=== PATIENT | male | born 1935 | race Caucasian/White ===

== ENCOUNTER → 2017-10-25 07:37 | Outpatient (CLI) | payer MEDICARE, SELFPAY ==
[2017-10-25 08:23] LABS: Hematocrit 43.9 % (40-54); Mean Corp Hgb Conc 31.9 g/gl (32-36); Mean Corpuscular Hgb 30.4 pg (27.0-32.0); Mean Corpuscular Volume 95.4 fL (80-94); Mean Platelet Vol. 10.4 fl (6.2-12.0); Platelet Count 238 K/mm3 (150-450); RBC Distribution Width CV 13.5 % (11.6-14.6); RBC Distribution Width SD 46.6 fl (35.1-43.9); White Blood Count 8.4 K/mm3 (4.4-11.0)
[2017-10-25 08:24] LABS: Scan Indicated on CBC? Y/N NO
[2017-10-25 08:37] LABS: Hemoglobin A1c 5.8 % (4.2-6.3)
[2017-10-25 08:42] LABS: Microalbumin,Random Urine 57.5 mg/L (NO RANGE EST.); Microalbumin:Creatinine Ratio 91.4 mg/g CRE (<30 mg/g CRE)
[2017-10-25 08:47] LABS: ALB/GLOB Ratio 0.9 RATIO (0.9-2.4); AST(SGOT) 18 U/L (15-37); Alanine Aminotransfer ALT/SGPT 24 U/L (16-61); Albumin, Serum 3.6 g/dL (3.2-5.0); Alkaline Phosphatase 74 U/L (45-117); Anion Gap 6 (5-15); BUN 26 mg/dL (7-18); Bilirubin, Direct 0.15 mg/dL (0.00-0.30); Calcium,Total 8.6 mg/dL (8.5-10.1); Chloride 104 mmol/L (98-107); Cholesterol 132 mg/dL (200); Creatinine, Serum 1.73 mg/dL (0.70-1.30); EST Glomerular Filtration Rate 41 mL/min (>60); Est Glom Filt Rate - Afr Amer 49 mL/min (>60); Globulin 3.8 g/dL (2.2-4.2); Glucose 107 mg/dL (74-106); High Density Lipoprotein 46 mg/dL; Potassium 4.5 mmol/L (3.5-5.1); Protein, Total 7.4 g/dL (6.4-8.2); Sodium Level 140 mmol/L (136-145); Triglycerides 89 mg/dL; Very Low Density Lipoprotein 18 mg/dL (5-40)
[2017-10-25 08:51] LABS: Vitamin D,25 Hydroxy 45.9 ng/mL (29.95-100.01)
[2017-10-25 08:51] LABS: PTHIN 75.3 pg/mL (18.4-80.1)
== END ==
PROVIDERS: Internal Medicine Cardiovascular Disease; Family Provider Family Medicine; PCP Family Medicine; Visit Provider Internal Medicine Nephrology
DX: I12.9 Hypertensive chronic kidney disease with stage 1 through stage 4 chronic kidney disease, or unspecified chronic kidney disease (principal); N18.3 Chronic kidney disease, stage 3 (moderate); E78.5 Hyperlipidemia, unspecified; Z79.899 Other long term (current) drug therapy
CPT/HCPCS: 36415; 80053; 80061; 82043; 82248; 82306; 82570; 83036; 83970; 85027

== ENCOUNTER → 2017-11-01 12:36 | Outpatient (CLI) | payer MEDICARE, SELFPAY ==
[2017-11-01 14:44] LABS: ALB/GLOB Ratio 0.9 RATIO (0.9-2.4); AST(SGOT) 18 U/L (15-37); Alanine Aminotransfer ALT/SGPT 24 U/L (16-61); Albumin, Serum 3.7 g/dL (3.2-5.0); Alkaline Phosphatase 80 U/L (45-117); Anion Gap 6 (5-15); BUN 37 mg/dL (7-18); Calcium,Total 8.8 mg/dL (8.5-10.1); Chloride 108 mmol/L (98-107); Cholesterol 139 mg/dL (200); Creatinine, Serum 1.85 mg/dL (0.70-1.30); EST Glomerular Filtration Rate 37 mL/min (>60); Est Glom Filt Rate - Afr Amer 45 mL/min (>60); Globulin 3.9 g/dL (2.2-4.2); Glucose 83 mg/dL (74-106); High Density Lipoprotein 53 mg/dL; Potassium 4.7 mmol/L (3.5-5.1); Protein, Total 7.6 g/dL (6.4-8.2); Sodium Level 141 mmol/L (136-145); Triglycerides 103 mg/dL; Very Low Density Lipoprotein 21 mg/dL (5-40)
[2017-11-01 14:51] LABS: Hemoglobin A1c 5.5 % (4.2-6.3)
== END ==
PROVIDERS: Family Provider Family Medicine; PCP Family Medicine; Visit Provider Family Medicine
DX: I12.9 Hypertensive chronic kidney disease with stage 1 through stage 4 chronic kidney disease, or unspecified chronic kidney disease (principal); N18.3 Chronic kidney disease, stage 3 (moderate); E78.5 Hyperlipidemia, unspecified
CPT/HCPCS: 80053; 80061; 83036

== ENCOUNTER → 2018-04-20 08:04 | Outpatient (CLI) | payer MEDICARE, SELFPAY ==
[2018-04-20 09:04] LABS: AST(SGOT) 18 U/L (15-37); Alanine Aminotransfer ALT/SGPT 21 U/L (16-61); Albumin, Serum 3.8 g/dL (3.2-5.0); Alkaline Phosphatase 70 U/L (45-117); Anion Gap 7 (5-15); BUN 32 mg/dL (7-18); BUN/Creat Ratio 16.2 RATIO (10-20); Calcium,Total 9.1 mg/dL (8.5-10.1); Chloride 100 mmol/L (98-107); Cholesterol 149 mg/dL (200); Creatinine, Serum 1.97 mg/dL (0.70-1.30); EST Glomerular Filtration Rate 35 mL/min (>60); Est Glom Filt Rate - Afr Amer 42 mL/min (>60); Globulin 3.9 g/dL (2.2-4.2); Glucose 112 mg/dL (74-106); High Density Lipoprotein 46 mg/dL; Potassium 3.8 mmol/L (3.5-5.1); Protein, Total 7.7 g/dL (6.4-8.2); Sodium Level 139 mmol/L (136-145); Triglycerides 141 mg/dL; Very Low Density Lipoprotein 28 mg/dL (5-40)
[2018-04-20 09:07] LABS: Hemoglobin A1c 5.8 % (4.2-6.3)
== END ==
PROVIDERS: Family Provider Family Medicine; PCP Family Medicine; Referring Provider Family Medicine; Visit Provider Family Medicine
DX: E78.5 Hyperlipidemia, unspecified (principal); I12.9 Hypertensive chronic kidney disease with stage 1 through stage 4 chronic kidney disease, or unspecified chronic kidney disease; N18.3 Chronic kidney disease, stage 3 (moderate); Z79.899 Other long term (current) drug therapy
CPT/HCPCS: 36415; 80053; 80061; 83036

== ENCOUNTER → 2018-11-09 | Outpatient (CLI) | payer MEDICARE, SELFPAY ==
[2017-11-09 10:06] VITALS: BMI 21.9
[2018-11-09 08:51] LABS: Hematocrit 42.9 % (40-54); Hemoglobin 14.2 g/dl (13.0-16.5); Mean Corp Hgb Conc 33.1 g/gl (32-36); Mean Corpuscular Hgb 30.8 pg (27.0-32.0); Mean Corpuscular Volume 93.1 fL (80-94); Mean Platelet Vol. 10.2 fl (6.2-12.0); Platelet Count 244 K/mm3 (150-450); RBC Distribution Width CV 12.9 % (11.6-14.6); RBC Distribution Width SD 43.3 fl (35.1-43.9); Red Blood Count 4.61 M/mm3 (4.6-6.2); White Blood Count 7.4 K/mm3 (4.4-11.0)
[2018-11-09 08:53] LABS: Scan Indicated on CBC? Y/N NO
[2018-11-09 09:00] LABS: Protein, Urine (Random) 17.2 mg/dL (<11.9); Protein:Creat Ratio 282 mg/g CRE (0-200)
[2018-11-09 09:19] LABS: ALB/GLOB Ratio 1.1 RATIO (0.9-2.4); AST(SGOT) 20 U/L (15-37); Alanine Aminotransfer ALT/SGPT 21 U/L (16-61); Albumin, Serum 3.9 g/dL (3.2-5.0); Alkaline Phosphatase 70 U/L (45-117); Anion Gap 5 (5-15); BUN 35 mg/dL (7-18); BUN/Creat Ratio 18.5 RATIO (10-20); Bilirubin, Direct 0.15 mg/dL (0.00-0.30); Chloride 102 mmol/L (98-107); Cholesterol 151 mg/dL (200); Creatinine, Serum 1.89 mg/dL (0.70-1.30); EST Glomerular Filtration Rate 36 mL/min (>60); Est Glom Filt Rate - Afr Amer 44 mL/min (>60); Globulin 3.7 g/dL (2.2-4.2); Glucose 110 mg/dL (74-106); High Density Lipoprotein 50 mg/dL; Potassium 3.8 mmol/L (3.5-5.1); Protein, Total 7.6 g/dL (6.4-8.2); Sodium Level 138 mmol/L (136-145); Triglycerides 94 mg/dL; Very Low Density Lipoprotein 19 mg/dL (5-40)
[2018-11-09 09:29] LABS: Vitamin D,25 Hydroxy 37.6 ng/mL (29.95-100.01)
[2018-11-09 16:49] LABS: Phosphorus 3.8 mg/dL (2.5-4.9)
== END | disposition home or self-care (01) ==
PROVIDERS: Family Provider Family Medicine; PCP Family Medicine; Referring Provider Nurse Practitioner Family; Visit Provider Nurse Practitioner Family
DX: I12.9 Hypertensive chronic kidney disease with stage 1 through stage 4 chronic kidney disease, or unspecified chronic kidney disease (principal); N18.3 Chronic kidney disease, stage 3 (moderate); Z79.899 Other long term (current) drug therapy; I25.10 Atherosclerotic heart disease of native coronary artery without angina pectoris; E55.9 Vitamin D deficiency, unspecified; N25.81 Secondary hyperparathyroidism of renal origin; E78.5 Hyperlipidemia, unspecified; D63.1 Anemia in chronic kidney disease
CPT/HCPCS: 36415; 80053; 80061; 82248; 82306; 82570; 83970; 84100; 84156; 85027

== ENCOUNTER → 2018-12-06 | Outpatient (CLI) | payer MEDICARE, SELFPAY ==
[2018-11-24 09:07] VITALS: BMI 22.7
--- NOTE | 2018-12-06 07:32 | CDU_ITS ---
Reason For Study: TIA Rt. Velocities/BP Lt. Velocities/BP Prox CCA 68.4/9.1 cm/sec. Prox CCA 64.2/11.4 cm/sec. Mid CCA 92.6/13.5 cm/sec. Mid CCA 60.5/13.9 cm/sec. Dist CCA 71.8/11.3 cm/sec. Dist CCA 61.7/11.4 cm/sec. Prox ICA 60.5/11.4 cm/sec. Prox ICA 64.1/10.2 cm/sec. Mid ICA 91.3/12.6 cm/sec. Mid ICA 67.4/8 cm/sec. Dist ICA 118.3/17.6 cm/sec. Dist ICA 71.7/11.3 cm/sec. Rt. ICA/CCA = 1.6. Lt. ICA/CCA = 1.2. Prox ECA 424 cm/sec. Prox ECA 191.6 cm/sec. Rt. Vert. 66.7 cm/sec. Lt. Vert. 91.5/8 cm/sec. Right Extracranial There is heterogeneous, smooth atherosclerotic plaque noted in the right common carotid artery. There is heterogeneous, irregular atherosclerotic plaque noted in the right internal carotid artery. There is heterogeneous, irregular atherosclerotic plaque noted in the right external carotid artery. Antegrade flow is noted in the right vertebral artery. Left Extracranial There is heterogeneous, smooth atherosclerotic plaque noted in the left common carotid artery. There is heterogeneous, irregular atherosclerotic plaque noted in the left internal carotid artery. There is heterogeneous, irregular atherosclerotic plaque noted in the left external carotid artery. Antegrade flow is noted in the left vertebral artery. Procedure Carotid Duplex [id number]. Exam performed in department. 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 Mild irregular plague at the proximal left internal carotid with <50% stenosis. Irregular plague at the proximal left external carotid with <50% stenosis. Patent and antegrade vertebrals bilaterally History reported of left carotid endarterectomy x 2 No advancement of disease since 12/09/13. Ordering Physician: Keith Bagley Referring Physician: FERNANDA Barros M.D. Performed By: Meg Carrillo RVT
== END | disposition home or self-care (01) ==
LOC: CVS 07:31
PROVIDERS: Family Provider Family Medicine; PCP Family Medicine; Referring Provider Internal Medicine Cardiovascular Disease; Visit Provider Internal Medicine Cardiovascular Disease
DX: I65.22 Occlusion and stenosis of left carotid artery (principal)
CPT/HCPCS: 93880

== ENCOUNTER → 2019-04-11 07:38 | Outpatient (CLI) | payer MEDICARE, SELFPAY ==
[2018-11-24 09:07] VITALS: BMI 22.7
[2019-04-11 08:30] LABS: Hematocrit 44.8 % (40-54); Hemoglobin 14.6 g/dL (13.0-16.5); Mean Corp Hgb Conc 32.6 g/dL (32-36); Mean Corpuscular Hgb 30.5 pg (27.0-32.0); Mean Corpuscular Volume 93.7 fL (80-94); Mean Platelet Vol. 10.2 fl (6.2-12.0); Platelet Count 260 K/mm3 (150-450); RBC Distribution Width CV 12.8 % (11.6-14.6); RBC Distribution Width SD 44.4 fl (35.1-43.9); Red Blood Count 4.78 M/mm3 (4.6-6.2); White Blood Count 7.6 K/mm3 (4.4-11.0)
[2019-04-11 09:00] LABS: ALB/GLOB Ratio 0.9 RATIO (0.9-2.4); AST(SGOT) 17 U/L (15-37); Alanine Aminotransfer ALT/SGPT 18 U/L (16-61); Albumin, Serum 3.6 g/dL (3.2-5.0); Alkaline Phosphatase 72 U/L (45-117); Anion Gap 6 (5-15); BUN 33 mg/dL (7-18); BUN/Creat Ratio 17.6 RATIO (10-20); Calcium,Total 9.2 mg/dL (8.5-10.1); Chloride 102 mmol/L (98-107); Cholesterol 137 mg/dL (200); Creatinine, Serum 1.87 mg/dL (0.70-1.30); EST Glomerular Filtration Rate 37 mL/min (>60); Est Glom Filt Rate - Afr Amer 45 mL/min (>60); Globulin 4.1 g/dL (2.2-4.2); Glucose 115 mg/dL (74-106); High Density Lipoprotein 46 mg/dL; Potassium 4.3 mmol/L (3.5-5.1); Protein, Total 7.7 g/dL (6.4-8.2); Sodium Level 137 mmol/L (136-145); Triglycerides 117 mg/dL; Very Low Density Lipoprotein 23 mg/dL (5-40)
== END ==
LOC: LAB.FUTURE 07:40 → LAB 07:44
PROVIDERS: Family Provider Family Medicine; PCP Family Medicine; Referring Provider Family Medicine; Visit Provider Family Medicine
DX: I12.9 Hypertensive chronic kidney disease with stage 1 through stage 4 chronic kidney disease, or unspecified chronic kidney disease (principal); N18.3 Chronic kidney disease, stage 3 (moderate); E55.9 Vitamin D deficiency, unspecified; N25.81 Secondary hyperparathyroidism of renal origin; E78.5 Hyperlipidemia, unspecified; I25.10 Atherosclerotic heart disease of native coronary artery without angina pectoris
CPT/HCPCS: 36415; 80053; 80061; 82306; 83970; 85027

== ENCOUNTER → 2020-04-26 08:01 | Outpatient (CLI) | payer MEDICARE, SELFPAY ==
[2018-11-24 09:07] VITALS: BMI 22.7
[2020-04-26 08:59] LABS: Hemoglobin 14.3 g/dL (13.0-16.5); Mean Corp Hgb Conc 31.8 g/dL (32-36); Mean Corpuscular Volume 97.4 fL (80-94); Mean Platelet Vol. 10.2 fl (6.2-12.0); Platelet Count 273 K/mm3 (150-450); RBC Distribution Width CV 12.9 % (11.6-14.6); RBC Distribution Width SD 45.6 fl (35.1-43.9); Red Blood Count 4.62 M/mm3 (4.6-6.2); White Blood Count 7.3 K/mm3 (4.4-11.0)
[2020-04-26 09:21] LABS: PTHIN 58.4 pg/mL (18.4-80.1)
[2020-04-26 09:24] LABS: ALB/GLOB Ratio 0.9 RATIO (0.9-2.4); AST(SGOT) 16 U/L (15-37); Alanine Aminotransfer ALT/SGPT 26 U/L (16-61); Albumin, Serum 3.6 g/dL (3.2-5.0); Alkaline Phosphatase 85 U/L (45-117); Anion Gap 3 (5-15); BUN 33 mg/dL (7-18); BUN/Creat Ratio 19.8 RATIO (10-20); Bilirubin, Direct 0.16 mg/dL (0.00-0.30); Calcium,Total 9.1 mg/dL (8.5-10.1); Chloride 106 mmol/L (98-107); Cholesterol 142 mg/dL (200); Creatinine, Serum 1.67 mg/dL (0.70-1.30); EST Glomerular Filtration Rate 42 mL/min (>60); Est Glom Filt Rate - Afr Amer 51 mL/min (>60); Globulin 3.9 g/dL (2.2-4.2); Glucose 119 mg/dL (74-106); High Density Lipoprotein 52 mg/dL; Potassium 4.6 mmol/L (3.5-5.1); Protein, Total 7.5 g/dL (6.4-8.2); Sodium Level 140 mmol/L (136-145); Triglycerides 88 mg/dL; Very Low Density Lipoprotein 18 mg/dL (5-40)
[2020-04-26 09:25] LABS: Vitamin D,25 Hydroxy 54.8 ng/mL
== END ==
PROVIDERS: Nurse Practitioner Family; PCP Family Medicine; Referring Provider Family Medicine; Visit Provider Family Medicine
DX: I12.9 Hypertensive chronic kidney disease with stage 1 through stage 4 chronic kidney disease, or unspecified chronic kidney disease (principal); N18.30 Chronic kidney disease, stage 3 unspecified; E78.5 Hyperlipidemia, unspecified; N25.81 Secondary hyperparathyroidism of renal origin; E55.9 Vitamin D deficiency, unspecified; I70.213 Atherosclerosis of native arteries of extremities with intermittent claudication, bilateral legs
CPT/HCPCS: 36415; 80053; 80061; 82248; 82306; 83970; 85027

== ENCOUNTER → 2020-10-22 07:52 | Outpatient (CLI) | payer MEDICARE, SELFPAY ==
[2020-06-18 10:32] VITALS: BMI 21.9
[2020-10-22 09:23] LABS: AST(SGOT) 18 U/L (15-37); Alanine Aminotransfer ALT/SGPT 18 U/L (16-61); Albumin, Serum 3.7 g/dL (3.2-5.0); Alkaline Phosphatase 85 U/L (45-117); Anion Gap 4 (5-15); BUN 36 mg/dL (7-18); BUN/Creat Ratio 18.3 RATIO (10-20); Calcium,Total 9.1 mg/dL (8.5-10.1); Chloride 103 mmol/L (98-107); Cholesterol 162 mg/dL (200); Creatinine, Serum 1.97 mg/dL (0.70-1.30); EST Glomerular Filtration Rate 35 mL/min (>60); Est Glom Filt Rate - Afr Amer 42 mL/min (>60); Globulin 3.8 g/dL (2.2-4.2); Glucose 111 mg/dL (74-106); High Density Lipoprotein 52 mg/dL; Potassium 4.3 mmol/L (3.5-5.1); Protein, Total 7.5 g/dL (6.4-8.2); Sodium Level 138 mmol/L (136-145); Triglycerides 98 mg/dL; Very Low Density Lipoprotein 20 mg/dL (5-40)
== END ==
PROVIDERS: PCP Family Medicine; Referring Provider Family Medicine; Visit Provider Family Medicine
DX: I12.9 Hypertensive chronic kidney disease with stage 1 through stage 4 chronic kidney disease, or unspecified chronic kidney disease (principal); N18.31 Chronic kidney disease, stage 3a; E78.5 Hyperlipidemia, unspecified; E55.9 Vitamin D deficiency, unspecified
CPT/HCPCS: 36415; 80053; 80061; 82306

== ENCOUNTER 2020-11-10 14:22 | Emergency (ER) | payer MEDICARE, SELFPAY ==
[2020-06-18 10:32] VITALS: BMI 21.9
[2020-11-10 14:23] VITALS: BP 158/65; PULSE 70; PULSE 72; RESP 20; RESP 22; TEMP 35.7; O2SAT 92; O2SAT 94; BMI 23.8
--- NOTE | 2020-11-10 14:23 | RAD_ITS ---
STUDY: X-RAY CHEST REASON FOR EXAM: Male, 85 years old. syncope TECHNIQUE: Single AP portable view of the chest. COMPARISON: 02/09/2012. FINDINGS: The lungs are clear and expanded. Probable mild scarring in the lung bases. There is no demonstrated pleural abnormality. Normal size heart. Previous CABG. Normal mediastinum and sammy. Normal visualized pulmonary arteries. Normal visualized aortic arch and descending thoracic aorta. Normal visualized thoracic spine. Normal visualized ribs, clavicles, and shoulders. There is no demonstrated abnormality of the visualized soft tissue structures of the upper abdomen. RAD/Chest 1 View (Portable) IMPRESSION: No definite acute or significant abnormality seen. Electronically Signed: Eduin Chong MD at 16:00 EDT , Service support ,
--- NOTE | 2020-11-10 14:23 | EKG12_ITS ---
Test Reason : LOSS OF CONCIOUSNESS Blood Pressure : / mmHG Vent. Rate : 070 BPM Atrial Rate : 070 BPM P-R Int : 146 ms QRS Dur : 146 ms QT Int : 462 ms P-R-T Axes : 064 049 099 degrees QTc Int : 498 ms Sinus rhythm with occasional Premature ventricular complexes Left bundle branch block Abnormal ECG Confirmed by BHARATH ALFORD, VICKY ([id number]), editor producer ELIUD MARINELLI ([id number]) on 11/13/2020 8:49:28 AM Referred By: CATALINO Confirmed By:VICKY SINHA MD
--- NOTE | 2020-11-10 14:23 | CT_ITS ---
We are attempting to reach an attending provider to discuss findings. An addendum with communication details will be sent when the communication is complete. STUDY: CT BRAIN WITHOUT CONTRAST REASON FOR EXAM: Male, 85 years old. Head injury. RADIATION DOSAGE (If Supplied By Facility): CTDIvol = ( 44.99 ) mGy, DLP = ( 779.24 ) mGycm TECHNIQUE: Transaxial CT imaging of the brain was performed without administration of intravenous contrast material. Coronal and sagittal reconstructions were performed. Individualized dose optimization techniques were used for this CT. COMPARISON: None. FINDINGS: Normal soft tissue structures. Normal calvarium. Small traumatic subarachnoid blood and left temporal sulcus and in the sulci of both medial orbital gyri. There is also a small hemorrhagic contusion in the cortex of the right superior frontal gyrus. No communicating or noncommunicating hydrocephalus. 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 Normal basal ganglia and thalami. Normal brainstem. Normal cerebellum. There are no findings of an acute ischemic infarction. Normal visualized paranasal sinuses. CT/Brain/Head without Contrast IMPRESSION: 1. Small traumatic subarachnoid hemorrhage in the left temporal sulcus and in sulci of both medial orbital gyri. 2. Small hemorrhagic contusion in the right superior frontal lobe cortex. 3. 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 Electronically Signed: Pako Nguyen MD at 15:14 EDT , Service support ,
--- NOTE | 2020-11-10 14:24 | CT_ITS ---
STUDY: CT CERVICAL SPINE WITHOUT CONTRAST REASON FOR EXAM: Male, 85 years old. Head injury RADIATION DOSAGE (If Supplied By Facility): CTDIvol = ( 15.26 ) mGy, DLP = ( 271.46 ) mGycm TECHNIQUE: High resolution transaxial imaging was performed without contrast material. Sagittal and coronal images were reconstructed. Individualized dose optimization techniques were used for this CT. COMPARISON: None FINDINGS: Normal craniovertebral junction. Normal anterior atlantoaxial articulation. Normal odontoid process. Normal cervical lordosis. Normal vertebral bodies and posterior osseous elements. C2-3: Normal endplates. Normal disc height and morphology. Normal central canal and intervertebral neuroforamina. C3-4: Pronounced disc space height narrowing. Mild degenerative retrolisthesis of C3 on C4. Normal central canal. Normal left intervertebral neural foramina. Moderately pronounced stenosis of the right intervertebral neural foramen. C4-5: Normal endplates. Pronounced disc space height narrowing. Normal central canal and intervertebral neural foramina. C5-6: Mild endplate sclerosis. Pronounced disc space height narrowing. Normal central canal and right intervertebral neural foramen. Mild stenosis of the left intervertebral neural foramen. C6-7: Anterior marginal spurs. Mild endplate sclerosis. Pronounced disc space height narrowing. Normal central canal and intervertebral neural foramina. C7-T1: Normal endplates. Normal disc height. Minimal degenerative anterolisthesis of C7 on T1. Normal central canal and intervertebral neural foramina. T1-T2: Mild central concavity of the vertebral endplates. No suspicious fractures. Normal central canal and intervertebral neural foramina. T2-T3: Normal T2 inferior endplate. Mild central concavity of the T3 superior endplate may be from remote injury. Normal central canal and intervertebral neural foramina. Normal visualized soft tissue structures. Minimal paraseptal cysts in both lung apices. CT/Spine Cervical without Contras IMPRESSION: 1. No acute fracture of the cervical spine and the craniocervical junction. 2. Minimal degenerative retrolisthesis of C3 on C4 and moderately pronounced stenosis of the right C3-C4 intervertebral neural foramen. 3. Minimal degenerative anterolisthesis of C7 on T1. Electronically Signed: Pako Nguyen MD at 15:18 EDT , Service support ,
--- NOTE | 2020-11-10 14:26 | ED.DCSUM_ITS ---
History of Present Illness Chief Complaint: Syncope Informant: Patient Narrative: 85-year-old male presents by EMS with concern for syncope. Approximately 1 hour ago he had a syncopal episode witnessed by his . Patient had no prodrome. States that since that time he has been intermittently dizzy. Describes it is both room spinning as well as feeling like he is going to pass out. He denies any chest pain, shortness of breath, nausea, vomiting, abdominal pain, urinary symptoms. States this is not happened previously in the past. States he did eat breakfast as well as lunch. Glucose by squad normal. Past Medical History - Allergies and Home Meds Allergies/Adverse Reactions: Allergies Iodinated Contrast Media [Iodinated Contrast- Oral and IV Dye] Adverse Reaction (Severe, Verified 11/10/20 14:23) CKD Primary Care Physician: Jos Barros III, MD [Primary Care Provider] - Prior records reviewed: Yes Past Medical History: - - HLD, CAD, CKD Surgical History: coronary bypass surgery Lives: Spouse/ Significant Other Smoking Status: Former smoker Alcohol: None Drugs: None Review of Systems General: Denies: Chills, Fever, Sweats Eyes: Denies: Visual changes - bilaterally, Diplopia ENT: Denies: Rhinorrhea, Sore throat Cardiovascular: Denies: Chest pain, Palpitations Respiratory: Denies: Dyspnea, Cough, Dyspnea on exertion Gastrointestinal: Denies: Abdominal pain, Nausea, Vomiting, Diarrhea, Melena, Hematochezia Genitourinary: Denies: Dysuria, Hematuria, Frequency Musculoskeletal: Denies: Back pain, Extremity Pain Skin: Denies: Rash, Wounds Neurological: Reports: - - Dizziness. Denies: Headache, Weakness, Numbness Physical Exam Inital Vital Signs reviewed: Yes General: Well nourished, Well developed, No Acute Distress Head: Normocephalic, Atraumatic Eyes: Perrl, EOMI ENT: Moist mucous membranes, No rhinorrhea Neck: Supple, Nontender Cardiovascular: Regular rate, Regular rhythm, No murmurs Respiratory: No distress, CTA bilaterally, Chest nontender Abdomen: Soft, Nontender, Nondistended, Normal bowel sounds Back: Nontender, Normal Inspection Extremities: Nontender, No edema Skin: Normal color, No rash Neurological: Alert, Oriented x3, Cranial nerves II-XII grossly intact, Normal Strength, Normal Sensation Psychological: Normal affect, Normal Mood Diagnostic/Tx/Re-eval Clinical Impression(s) from Imaging Studies Brain CT 11/10/20 14:23 IMPRESSION: 1. Small traumatic subarachnoid hemorrhage in the left temporal sulcus and in sulci of both medial orbital gyri. 2. Small hemorrhagic contusion in the right superior frontal lobe cortex. 3. 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 Electronically Signed: Pako Nguyen MD at 15:14 EDT , Service support , ADDENDUM: 11/10/20 1524 IMPRESSION: 1. Small traumatic subarachnoid hemorrhage in the left temporal sulcus and in sulci of both medial orbital gyri. 2. Small hemorrhagic contusion in the right superior frontal lobe cortex. 3. 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 N.B. : The above information has been verbally conveyed by Pako Nguyen MD to Kalpesh Norman MD, MD, on 11/10/2020 15:17:04 (ET). Electronically Signed: Pako Nguyen MD at 15:14 EDT , Service support , Cervical Spine CT 11/10/20 14:24 IMPRESSION: 1. No acute fracture of the cervical spine and the craniocervical junction. 2. Minimal degenerative retrolisthesis of C3 on C4 and moderately pronounced stenosis of the right C3-C4 intervertebral neural foramen. 3. Minimal degenerative anterolisthesis of C7 on T1. Electronically Signed: Pako Nguyen MD at 15:18 EDT , Service support , Laboratory Data 11/10/20 11/10/20 14:26 14:26 WBC 13.4 H RBC 4.44 L Hgb 13.6 Hct 42.4 MCV 95.5 H MCH 30.6 MCHC 32.1 RDW Std Deviation 44.1 H RDW Coeff of [place] 12.5 Plt Count 298 MPV 10.2 Immature Gran % (Auto) 0.700 Neut % (Auto) 71.0 H Lymph % (Auto) 17.7 L [place] % (Auto) 8.5 Eos % (Auto) 1.6 Baso % (Auto) 0.5 Absolute Neuts (auto) 9.5 H Absolute Lymphs (auto) 2.36 Nucleated RBC % 0 Sodium 137 Potassium 4.1 Chloride 104 Carbon Dioxide 27.0 Anion Gap 6 BUN 41 H Creatinine 1.80 H Estim Creat Clear Calc 26.57 Est GFR (MDRD) Af Amer 46 L Est GFR (MDRD) Non-Af 38 L BUN/Creatinine Ratio 22.8 H Glucose 130 H Calcium 9.4 Total Bilirubin 0.70 AST 19 ALT 22 Alkaline Phosphatase 93 Troponin I < 0.015 Total Protein 8.2 Albumin 4.0 Globulin 4.2 Albumin/Globulin Ratio 1.0 - Rhythm Strip Rhythm Strip: Sinus Rhythm Rate: 70 Ectopy: PVC(s) - EKG Initial EKG Interpretation: Sinus Rhythm - Normal sinus rhythm at 70 bpm. PVC. Left bundle branch block. CO interval of 146 ms. QTC of 498 ms. No evidence of ST elevation or depression at this time. - Medical Decision Making Patient appears well and nontoxic. Vital signs within normal limits. Lab work shows a leukocytosis with chronic kidney disease. CT brain concerning for small traumatic subarachnoid hemorrhage as well as a right small frontal lobe contusion. CT cervical spine shows no acute process. Chest x-ray interpreted by myself shows no evidence of acute trauma, infiltrate, cardiomegaly. Spoke with trauma surgery at [facility] who accepted the patient for direct admission. Dr. Alamo is the accepting physician. is at the bedside who is agreeable with transfer. Patient will go by ground give is in stable condition. Stable at time of transfer. Impression: 1. Traumatic SAH 2. Syncope 3. Head injury 4. Cerebral contusion - Critical Care Time Critical care time (excluding procedures): 30-74 minutes, Discussing w/Patient &/or Family/Customer Services Manager, Discussing w/Consultants, Arranging Admission or Transfer, Performing Direct Patient Care at Bedside ED Disposition - Plan for ED Patient: Referrals: Jos Barros III, MD [Primary Care Provider] -
[2020-11-10 14:32] LABS: Absolute Lymphocyte Count 2.36 X10^3/uL (0.83-4.51); Absolute Neutrophil Count 9.5 X10^3/uL (2.0-7.7); Basophil# 0.07 X10^3/uL; Basophil% 0.5 % (0-1); Eosinophil# 0.21 X10^3/uL; Eosinophils% 1.6 % (0-5); Hematocrit 42.4 % (40-54); Hemoglobin 13.6 g/dL (13.0-16.5); Lymphocyte # 2.36 X10^3/ul (0.83-4.51); Lymphocyte % 17.7 % (19-41); Mean Corp Hgb Conc 32.1 g/dL (32-36); Mean Corpuscular Hgb 30.6 pg (27.0-32.0); Mean Corpuscular Volume 95.5 fL (80-94); Mean Platelet Vol. 10.2 fl (6.2-12.0); Monocyte# 1.14 X10^3/uL; Monocyte% 8.5 % (0-10); NRBC Flagged by Analyzer 0 % (0-5); Neutrophil # 9.49 X10^3/uL (2.7-7.7); Platelet Count 298 K/mm3 (150-450); RBC Distribution Width CV 12.5 % (11.6-14.6); RBC Distribution Width SD 44.1 fl (35.1-43.9); Red Blood Count 4.44 M/mm3 (4.6-6.2); White Blood Count 13.4 K/mm3 (4.4-11.0)
[2020-11-10 14:50] LABS: AST(SGOT) 19 U/L (15-37); Alanine Aminotransfer ALT/SGPT 22 U/L (16-61); Alkaline Phosphatase 93 U/L (45-117); Anion Gap 6 (5-15); BUN 41 mg/dL (7-18); BUN/Creat Ratio 22.8 RATIO (10-20); Calcium,Total 9.4 mg/dL (8.5-10.1); Chloride 104 mmol/L (98-107); EST Glomerular Filtration Rate 38 mL/min (>60); Est Glom Filt Rate - Afr Amer 46 mL/min (>60); Estimated Creatinine Clearance 26.57 ml/min; Globulin 4.2 g/dL (2.2-4.2); Glucose 130 mg/dL (74-106); Potassium 4.1 mmol/L (3.5-5.1); Protein, Total 8.2 g/dL (6.4-8.2); Sodium Level 137 mmol/L (136-145)
[2020-11-10 14:52] VITALS: BP 151/50; PULSE 70; RESP 16; O2SAT 89
[2020-11-10 14:53] VITALS: O2SAT 96
--- NOTE | 2020-11-10 15:25 | NURSING ---
1520 CALLED [facility], TALKED TO WAYLON ABOUT TRANSFER.
--- NOTE | 2020-11-10 15:37 | NURSING ---
1530 ETA IS 45 MIN
[2020-11-10 15:38] VITALS: BP 148/54; PULSE 75; RESP 25; O2SAT 98
[2020-11-10 15:52] VITALS: BP 157/53; PULSE 76; RESP 18; O2SAT 97
[2020-11-10 16:13] VITALS: BP 145/54; PULSE 78; RESP 17; O2SAT 96
== END 2020-11-10 16:46 | disposition short-term general hospital (02) ==
LOC: ED 14:38
PROVIDERS: Emergency Provider Emergency Medicine; PCP Family Medicine
DX: S06.6X0A Traumatic subarachnoid hemorrhage without loss of consciousness, initial encounter (principal); S06.310A Contusion and laceration of right cerebrum without loss of consciousness, initial encounter; R55 Syncope and collapse; X58.XXXA Exposure to other specified factors, initial encounter; Y93.9 Activity, unspecified; Y92.9 Unspecified place or not applicable; Y99.9 Unspecified external cause status; N18.9 Chronic kidney disease, unspecified; I25.10 Atherosclerotic heart disease of native coronary artery without angina pectoris; E78.5 Hyperlipidemia, unspecified; Z79.82 Long term (current) use of aspirin; Z79.899 Other long term (current) drug therapy; Z87.891 Personal history of nicotine dependence; Z95.1 Presence of aortocoronary bypass graft
CPT/HCPCS: 70450; 71045; 72125; 80053; 84484; 85025; 93005; 96360; 99285; J7040

== ENCOUNTER → 2021-04-17 08:27 | Outpatient (CLI) | payer MEDICARE, SELFPAY ==
[2021-04-17 10:06] LABS: Hematocrit 42.2 % (40-54); Hemoglobin 13.5 g/dL (13.0-16.5); Mean Corpuscular Hgb 30.6 pg (27.0-32.0); Mean Corpuscular Volume 95.7 fL (80-94); Mean Platelet Vol. 10.4 fl (6.2-12.0); Platelet Count 276 K/mm3 (150-450); RBC Distribution Width CV 12.9 % (11.6-14.6); RBC Distribution Width SD 45.6 fl (35.1-43.9); Red Blood Count 4.41 M/mm3 (4.6-6.2); White Blood Count 6.7 K/mm3 (4.4-11.0)
[2021-04-17 10:23] LABS: AST(SGOT) 11 U/L (15-37); Alanine Aminotransfer ALT/SGPT 21 U/L (16-61); Albumin, Serum 3.7 g/dL (3.2-5.0); Alkaline Phosphatase 85 U/L (45-117); Anion Gap 5 (5-15); BUN 32 mg/dL (7-18); Calcium,Total 9.4 mg/dL (8.5-10.1); Chloride 105 mmol/L (98-107); Cholesterol 157 mg/dL (200); EST Glomerular Filtration Rate 44 mL/min (>60); Est Glom Filt Rate - Afr Amer 53 mL/min (>60); Globulin 3.7 g/dL (2.2-4.2); Glucose 113 mg/dL (74-106); High Density Lipoprotein 51 mg/dL; Potassium 4.9 mmol/L (3.5-5.1); Protein, Total 7.4 g/dL (6.4-8.2); Sodium Level 140 mmol/L (136-145); Triglycerides 89 mg/dL; Very Low Density Lipoprotein 18 mg/dL (5-40)
== END ==
PROVIDERS: PCP Family Medicine; Referring Provider Family Medicine; Visit Provider Family Medicine
DX: I25.10 Atherosclerotic heart disease of native coronary artery without angina pectoris (principal)
CPT/HCPCS: 36415; 80053; 80061; 85027

== ENCOUNTER → 2022-03-06 | Outpatient (CLI) | payer MEDICARE, SELFPAY ==
[2022-03-06 12:37] LABS: Absolute Lymphocyte Count 1.33 X10^3/uL (0.83-4.51); Absolute Neutrophil Count 6.1 X10^3/uL (2.0-7.7); Basophil# 0.05 X10^3/uL; Basophil% 0.6 % (0-1); Eosinophil# 0.24 X10^3/uL; Eosinophils% 2.8 % (0-5); Hematocrit 40.7 % (40-54); Hemoglobin 12.9 g/dL (13.0-16.5); Lymphocyte # 1.33 X10^3/ul (0.83-4.51); Lymphocyte % 15.4 % (19-41); Mean Corp Hgb Conc 31.7 g/dL (32-36); Mean Corpuscular Hgb 30.4 pg (27.0-32.0); Mean Platelet Vol. 10.2 fl (6.2-12.0); Monocyte% 10.4 % (0-10); NRBC Flagged by Analyzer 0 % (0-5); Neutrophil % 70.5 % (47-70); Platelet Count 289 K/mm3 (150-450); RBC Distribution Width CV 12.9 % (11.6-14.6); RBC Distribution Width SD 45.7 fl (35.1-43.9); Red Blood Count 4.24 M/mm3 (4.6-6.2); White Blood Count 8.7 K/mm3 (4.4-11.0)
[2022-03-06 12:50] LABS: Vitamin D,25 Hydroxy 52.9 ng/mL
[2022-03-06 13:04] LABS: ALB/GLOB Ratio 0.9 RATIO (0.9-2.4); AST(SGOT) 16 U/L (15-37); Alanine Aminotransfer ALT/SGPT 19 U/L (16-61); Albumin, Serum 3.4 g/dL (3.2-5.0); Alkaline Phosphatase 65 U/L (45-117); Anion Gap 3 (5-15); BUN 28 mg/dL (7-18); BUN/Creat Ratio 16.3 RATIO (10-20); Calcium,Total 9.3 mg/dL (8.5-10.1); Chloride 104 mmol/L (98-107); Cholesterol 122 mg/dL (200); Creatinine, Serum 1.72 mg/dL (0.70-1.30); EST Glomerular Filtration Rate 40 mL/min (>60); Est Glom Filt Rate - Afr Amer 49 mL/min (>60); Free T3 2.5 pg/mL (2.18-3.98); Globulin 3.9 g/dL (2.2-4.2); Glucose 114 mg/dL (74-106); High Density Lipoprotein 51 mg/dL; Magnesium 2.4 mg/dL (1.6-2.6); Potassium 4.5 mmol/L (3.5-5.1); Protein, Total 7.3 g/dL (6.4-8.2); Sodium Level 138 mmol/L (136-145); T4 Free Direct 1.03 ng/dL (0.76-1.46); Thyroid Stim Hormone (TSH) 2.65 uIU/mL (0.358-3.74); Triglycerides 86 mg/dL; Very Low Density Lipoprotein 17 mg/dL (5-40)
== END | disposition home or self-care (01) ==
LOC: BIMLAB 08:31
PROVIDERS: Referring Provider Internal Medicine; Visit Provider Internal Medicine
DX: I65.22 Occlusion and stenosis of left carotid artery (principal); I10 Essential (primary) hypertension; E78.5 Hyperlipidemia, unspecified; I25.10 Atherosclerotic heart disease of native coronary artery without angina pectoris; E55.9 Vitamin D deficiency, unspecified; Z86.73 Personal history of transient ischemic attack (TIA), and cerebral infarction without residual deficits; Z95.1 Presence of aortocoronary bypass graft
CPT/HCPCS: 36415; 80053; 80061; 82306; 83735; 84439; 84443; 84481; 85025

== ENCOUNTER → 2022-04-06 | Outpatient (CLI) | payer MEDICARE, SELFPAY ==
[2022-04-06 12:12] LABS: Absolute Lymphocyte Count 1.35 X10^3/uL (0.83-4.51); Basophil# 0.04 X10^3/uL; Basophil% 0.5 % (0-1); Eosinophil# 0.19 X10^3/uL; Eosinophils% 2.2 % (0-5); Hematocrit 41.2 % (40-54); Hemoglobin 13.2 g/dL (13.0-16.5); Lymphocyte # 1.35 X10^3/ul (0.83-4.51); Mean Corpuscular Hgb 30.6 pg (27.0-32.0); Mean Corpuscular Volume 95.6 fL (80-94); Mean Platelet Vol. 10.1 fl (6.2-12.0); Monocyte# 0.88 X10^3/uL; Monocyte% 10.4 % (0-10); NRBC Flagged by Analyzer 0 % (0-5); Neutrophil # 5.96 X10^3/uL (2.7-7.7); Neutrophil % 70.5 % (47-70); Platelet Count 298 K/mm3 (150-450); RBC Distribution Width CV 12.8 % (11.6-14.6); RBC Distribution Width SD 45.4 fl (35.1-43.9); Red Blood Count 4.31 M/mm3 (4.6-6.2); White Blood Count 8.5 K/mm3 (4.4-11.0)
[2022-04-06 12:52] LABS: PSA,Total - Annual Screen 2.14 ng/mL (0.00-4.00)
== END | disposition home or self-care (01) ==
LOC: BIMLAB 08:11
PROVIDERS: Referring Provider Internal Medicine; Visit Provider Internal Medicine
DX: D64.9 Anemia, unspecified (principal); Z12.5 Encounter for screening for malignant neoplasm of prostate
CPT/HCPCS: 36415; 84153; 85025; G0103

== ENCOUNTER → 2023-03-24 | Outpatient (CLI) | payer MEDICARE, SELFPAY ==
[2023-03-24 09:55] LABS: AST(SGOT) 16 U/L (15-37); Alanine Aminotransfer ALT/SGPT 19 U/L (16-61); Albumin, Serum 3.3 g/dL (3.2-5.0); Alkaline Phosphatase 74 U/L (45-117); Anion Gap 6 (5-15); BUN 36 mg/dL (7-18); BUN/Creat Ratio 19.9 RATIO (10-20); Bilirubin, Direct 0.17 mg/dL (0.00-0.30); Calcium,Total 9.1 mg/dL (8.5-10.1); Chloride 104 mmol/L (98-107); Cholesterol 113 mg/dL (200); Creatinine, Serum 1.81 mg/dL (0.70-1.30); EST Glomerular Filtration Rate 38 mL/min (>60); Est Glom Filt Rate - Afr Amer 46 mL/min (>60); Globulin 4.2 g/dL (2.2-4.2); Glucose 116 mg/dL (74-106); High Density Lipoprotein 44 mg/dL; Potassium 4.1 mmol/L (3.5-5.1); Protein, Total 7.5 g/dL (6.4-8.2); Sodium Level 139 mmol/L (136-145); Triglycerides 66 mg/dL; Very Low Density Lipoprotein 13 mg/dL (5-40)
== END | disposition home or self-care (01) ==
LOC: LAB 08:11
PROVIDERS: PCP Internal Medicine; Referring Provider Internal Medicine Cardiovascular Disease; Visit Provider Internal Medicine Cardiovascular Disease
DX: I25.10 Atherosclerotic heart disease of native coronary artery without angina pectoris (principal); I10 Essential (primary) hypertension; E78.5 Hyperlipidemia, unspecified
CPT/HCPCS: 36415; 80048; 80061; 80076

== ENCOUNTER → 2023-04-16 | Outpatient (CLI) | payer MEDICARE, SELFPAY ==
--- NOTE | 2023-04-16 12:43 | ECHOD_ITS ---
Version 2 Reason For Study: LBBB Procedure This was a 2D Doppler, Color Flow transthoracic echocardiogram. Exam performed in department. Left Ventricle Normal LV size. Left ventricular systolic function is normal. The estimated ejection fraction is 60 %. Right Ventricle Normal RV size. Normal systolic function. Atria The left atrium is mildly enlarged. Normal right atrium. Mitral Valve There is moderate mitral annular calcification. Moderate (2+) eccentric mitral valve insufficiency. Tricuspid Valve Normal tricuspid valve. Mild to moderate (1-2+) tricuspid valve insufficiency. Pulmonary artery systolic pressure is 50 mmHg. Aortic Valve Trisinus/trileaflet aortic valve. Mild focal aortic valve calcification. Mild-Moderate (1-2+) aortic valve insufficiency. Pulmonic Valve Normal pulmonic valve. Mild (1+) pulmonic valve insufficiency. Great Vessels Normal aortic root. Calcified aortic root. The pulmonary artery is normal size. Normal inferior vena cava. Pericardium/Pleural No pericardial effusion. MMode/2D Measurements & Calculations LVIDd: 4.6 cm IVSd: 1.3 cm LVOT diam: 2.0 cm LVIDs: 3.6 cm LVPWd: 1.3 cm LVOT area: 3.2 cm2 RVDd: 3.0 cm FS: 21.8 % Ao root diam: 3.1 cm LAV(MOD-bp): 75.4 ml LVAd ap4: 26.6 cm2 LAV(MOD-bp) Indexed: 45.7 ml/m2 LVLd ap4: 7.6 cm LAV(MOD-sp2): 62.4 ml EDV(MOD-sp4): 77.2 ml LAV(MOD-sp4): 72.0 ml EDV(sp4-el): 78.8 ml LVAs ap4: 15.7 cm2 LVLs ap4: 6.5 cm ESV(MOD-sp4): 32.4 ml ESV(sp4-el): 32.1 ml EF(MOD-sp4): 58.1 % EF(sp4-el): 59.3 % SV(MOD-sp4): 44.8 ml SV(sp4-el): 46.7 ml LA A4 area: 24.5 cm2 LA dimension(2D): 3.0 cm RA A4 area: 17.0 cm2 TAPSE: 1.8 cm Time Measurements MV dec time: 0.17 sec Doppler Measurements & Calculations MV E max deejay: 102.2 cm/sec Lat Peak E' Deejay: 12.3 cm/sec Med Peak E' Deejay: 5.0 cm/sec MV A max deejay: 83.9 cm/sec E/E' lat: 8.3 E/E' med: 20.6 MV E/A: 1.2 MV V2 max: 111.0 cm/sec Ao V2 max: 154.6 cm/sec MV max P.9 mmHg MV dec slope: 594.7 cm/sec2 Ao max P.6 mmHg MV V2 mean: 64.7 cm/sec Ao V2 mean: 109.7 cm/sec MV mean P.9 mmHg Ao mean P.4 mmHg MV V2 VTI: 41.2 cm Ao V2 VTI: 43.2 cm AV (velocity ratio): 0.60 MVA(VTI): 2.0 cm2 MANDO(I,D): 1.9 cm2 MANDO(V,D): 2.3 cm2 AI max deejay: 407.9 cm/sec LV V1 max: 108.9 cm/sec SV(LVOT): 84.0 ml AI max P.6 mmHg LV V1 max P.8 mmHg LV V1 mean P.2 mmHg AI dec slope: 380.8 cm/sec2 LV V1 mean: 68.6 cm/sec AI P1/2t: 313.8 msec LV V1 VTI: 26.0 cm PA V2 max: 81.4 cm/sec TR max deejay: 338.4 cm/sec PA V2 mean: 63.3 cm/sec TR max P.8 mmHg ECHO/Echo Complete Interpretation Summary Normal LV size. Left ventricular systolic function is normal. The estimated ejection fraction is 60 %. Moderate (2+) eccentric mitral valve insufficiency. Mild to moderate (1-2+) tricuspid valve insufficiency. Mild-Moderate (1-2+) aortic valve insufficiency. Ordering Physician: Keith Bagley Referring Physician: Keith Bagley Performed By: Mini Aparicio RCS
== END | disposition home or self-care (01) ==
PROVIDERS: PCP Internal Medicine; Referring Provider Internal Medicine Cardiovascular Disease; Visit Provider Internal Medicine Cardiovascular Disease
DX: I44.7 Left bundle-branch block, unspecified (principal)
CPT/HCPCS: 93306

== ENCOUNTER → 2023-09-13 | Outpatient (CLI) | payer MEDICARE, SELFPAY ==
--- NOTE | 2023-09-13 09:51 | CDU_ITS ---
Reason For Study: Carotid stenosis Rt. Velocities/BP Lt. Velocities/BP Prox CCA 68.3/5 cm/sec. Prox CCA 55.4/11 cm/sec. Mid CCA 66.4/13.5 cm/sec. Mid CCA 90.4/15.5 cm/sec. Dist CCA 55.1/9.7 cm/sec. Dist CCA 89.1/9.3. cm/sec. Prox ICA 85.5/13 cm/sec. Prox ICA 61/8.1 cm/sec. Mid ICA 108.9/15.7 cm/sec. Mid ICA 92.8/13 cm/sec. Dist ICA 112.5/13.9 cm/sec. Dist ICA 87.9/14.2 cm/sec. Rt. ICA/CCA = 1.69. Lt. ICA/CCA = 1.04. Prox ECA 94.2/4.7 cm/sec. Prox ECA 32.7 cm/sec. Rt. Vert. 49/6.2 cm/sec. Lt. Vert. 74.4/14.2 cm/sec. Right Extracranial There is homogeneous, smooth atherosclerotic plaque noted in the right common carotid artery. There is heterogeneous, irregular atherosclerotic plaque noted in the right internal carotid artery. There is heterogeneous, irregular atherosclerotic plaque noted in the right external carotid artery. Antegrade flow is noted in the right vertebral artery. Left Extracranial There is homogeneous, smooth atherosclerotic plaque noted in the left common carotid artery. There is homogeneous, smooth atherosclerotic plaque noted in the left internal carotid artery. There is heterogeneous, irregular atherosclerotic plaque noted in the left external carotid artery. Antegrade flow is noted in the left vertebral artery. Procedure Carotid Duplex [id number]. This is a Carotid Duplex examination using B-mode, color flow and specral Doppler. Exam performed in department. VL/Carotid Duplex Ultrasound Interpretation Summary Minimal irregular plaque at the proximal right internal carotid artery with les s than 50% stenosis Less than 50% stenosis right external carotid artery with shadowing calcific pl aque Smooth plaque at the proximal left internal carotid artery with less than 50% s tenosis Less than 50% stenosis left external carotid artery Patent antegrade vertebral arteries bilaterally Ordering Physician: Gladis Castro Referring Physician: Gladis Castro Performed By: Meg Carrillo RVT
== END | disposition home or self-care (01) ==
PROVIDERS: PCP Internal Medicine; Referring Provider Internal Medicine; Visit Provider Internal Medicine
DX: I65.23 Occlusion and stenosis of bilateral carotid arteries (principal)
CPT/HCPCS: 93880

== ENCOUNTER 2023-10-20 12:53 | Emergency (ER) | payer MEDICARE, SELFPAY ==
[2023-10-20 12:54] VITALS: BP 175/60; PULSE 65; RESP 17; TEMP 35.6; O2SAT 94; BMI 22.0
--- NOTE | 2023-10-20 13:14 | EDS_ITS ---
HPI <Amber Hood RN - Last Filed: 10/20/23 14:28> History of Present Illness Chief Complaint: Foreign Body Informant: patient Onset/Context/Timing Onset: Today and - (999) Context: Sudden Onset Current Severity: Mild Maximum Severity: Mild Narrative Narrative: Patient is a 88-year-old male with past medical history significant for hypertension, CAD, and left carotid artery stenosis who presents to the ED with suspected esophageal food impaction. Patient reports since August he has had intermittent episodes of food being impacted in his esophagus. He has been able to clear these on his own. Today he reports eating an apple at approximately 10 AM and he feels as if there is a piece of apple stuck mid esophagus. He was unsuccessful in trying to clear this at home with water and hot cider. He was able to swallow small sips of water at home. His last episode was 10/17/2023. He did see Dr. Rivas from ENT on 10/18/2023 in which he did a scope through his nose and was unable to see any abnormalities. The patient is scheduled for barium swallow on 10/25/2023. He does report a prior history of acid reflux in which he was on medications for years and has now been off medications for several years. He denies chest pain, shortness of breath, nausea, and vomiting. He denies recent hospitalizations and recent travel. Prior similar symptoms: Yes Recent Illness/Hospitalization: No PFSH <Amber Hood RN - Last Filed: 10/20/23 14:28> [facility] Medical History Angiopathy, peripheral Atherosclerotic heart disease of [place] coronary artery without angina pectoris Barretts esophagus Carotid bruit Chronic kidney disease (CKD) Claudication History of CVA (cerebrovascular accident) Hyperlipidemia Left bundle branch block Left carotid artery stenosis Syncope (10/2020) TIA (transient ischemic attack) Traumatic subarachnoid hemorrhage (10/2020) Home Medications aspirin 81 mg tablet,delayed release (Adult Low Dose Aspirin) 81 mg PO QDAY 11/04/17 [History Last Taken Unknown] cholecalciferol (vitamin D3) 25 mcg (1,000 unit) capsule 2,000 unit PO QDAY 03/11/23 [History Last Taken Unknown] amlodipine 10 mg tablet 10 mg PO QDAY #90 tabs 03/12/23 [Rx Last Taken Unknown] atorvastatin 20 mg tablet 20 mg PO QDAY #90 tabs 03/12/23 [Rx Last Taken Unknown] hydrochlorothiazide 25 mg tablet 25 mg PO DAILY #90 tabs 03/12/23 [Rx Last Taken Unknown] metoprolol tartrate 25 mg tablet 25 mg PO BID #180 tabs 03/12/23 [Rx Last Taken Unknown] doxazosin 2 mg tablet 2 mg PO DAILY #60 tabs 03/30/23 [Rx Last Taken Unknown] Allergy/AdvReac Type Severity Reaction Status Date / Time Iodinated Contrast Media AdvReac Severe CKD Verified 03/30/23 16:01 [Iodinated Contrast- Oral and IV Dye] Family History Mother CAD (coronary artery disease) Diabetes Myocardial infarction Brother CAD (coronary artery disease) Hx of CABG Brother CAD (coronary artery disease) Surgical History 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) History of left-sided carotid endarterectomy (2000) Social History Smoking Status: Former smoker alcohol intake: current details: Rare substance use type: does not use caffeine: Yes Type: coffee Number of servings: 3 ROS <Amber Hood RN - Last Filed: 10/20/23 14:28> ROS ED Constitutional Constitutional ED: Denies chills, fever(s), sweats or weight loss Eyes Eyes: Denies change in vision ENT ENT ED: Denies rhinorrhea or sore throat Cardiovascular Cardiovascular: Denies chest pain, orthopnea, palpitations or racing heartbeat Respiratory/Chest Respiratory/Chest: Denies cough, dyspnea or orthopnea Gastrointestinal Gastrointestinal: Denies abdominal pain, diarrhea, nausea or vomiting Genitourinary Genitourinary ED: Denies dysuria, hematuria or urinary frequency Musculoskeletal Musculoskeletal: Denies arthralgias or myalgias Neurologic Neurologic: Denies headache(s), paresthesias or weakness EXAM <Amber Hood RN - Last Filed: 10/20/23 14:28> Physical Exam Narrative Exam Narrative: Patient is awake, alert, in no acute distress, cooperative, good historian. Const Vital Signs: 10/20/23 12:54 10/20/23 13:22 10/20/23 14:36 Temperature 96.1 F L 97.9 F Temperature Source Temporal Pulse Rate 65 65 Respiratory Rate 17 18 Respiratory Effort Normal Non-Labored Respiratory Pattern Normal Blood Pressure 175/60 H 170/62 H Blood Pressure Mean 98 98 Pulse Ox 94 99 Oxygen Delivery Method Room Air Positive well nourished and well developed General Appearance ED: well developed and NAD HEENT Reports moist mucous membranes Eyes PERRL Neck no lymphadenopathy, supple and no JVD Chest Wall inspection of chest normal and palpation of chest normal Resp normal respiratory effort and clear to auscultation bilaterally Auscultation: Negative for rales, rhonchi or wheezes Cardio regular rate, regular rhythm, S1 normal heart sound and S2 normal heart sound GI normal to inspection, nondistended, normoactive bowel sounds and non-tender Palpation: soft Extremity normal to inspection General Extremety ED: Negative for edema or tenderness General Extremity: Negative for edema Neuro oriented x3 Sensorium / Orientation: alert Motor Exam: strength 5/5 throughout Psych mental status grossly normal Skin no rashes or lesions noted, no wounds and skin turgor normal <Dr. Stephanie Smith MD - Last Filed: 10/20/23 15:31> Physical Exam Const Vital Signs: 10/20/23 12:54 10/20/23 13:22 10/20/23 14:36 Temperature 96.1 F L 97.9 F Temperature Source Temporal Pulse Rate 65 65 Respiratory Rate 17 18 Respiratory Effort Normal Non-Labored Respiratory Pattern Normal Blood Pressure 175/60 H 170/62 H Blood Pressure Mean 98 98 Pulse Ox 94 99 Oxygen Delivery Method Room Air MDM <Amber Hood RN - Last Filed: 10/20/23 14:28> MDM MDM Narrative Medical decision making narrative: Patient drank approximately 2 ounces of Coca-Cola without resolution of symptoms. Patient to be given IV glucagon. History & Record Review Discussion w/independent historian: Patient and Significant other Management Discussion w/another healthcare provider: Other (Dr. Smith, ED provider) Treatment and Re-Evaluation :: After receiving IV glucagon, patient was able to easily drink Coca-Cola and felt as if food bolus had gone down and resolved. Patient monitored in ED for approximately 45 minutes after glucagon. Patient continues to reports that food bolus has resolved. Patient advised to consume a soft diet, continue plan for barium swallow this coming Wednesday, and follow-up with Dr. Rivas. <Dr. Stephanie Smith MD - Last Filed: 10/20/23 15:31> [facility] Treatment and Re-Evaluation :: After receiving IV glucagon, patient was able to easily drink Coca-Cola and felt as if food bolus had gone down and resolved. Patient monitored in ED for approximately 45 minutes after glucagon. Patient continues to reports that food bolus has resolved. Patient advised to consume a soft diet, continue plan for barium swallow this coming Wednesday, and follow-up with Dr. Rivas. Patient seen and evaluated with ANILA. I personally interviewed and examined the patient. I was involved in all aspects of patient's orders, interpretation of results, and treatment. Patient presents secondary to concern for esophageal food impaction. He states has been having some difficulty swallowing and was seen by Dr. Pryor recently. He had a scope in the office to look at the upper airway and pharynx. This revealed no acute abnormalities. Patient reportedly is scheduled to have a barium swallow this coming week. Patient was eating an apple at 10 AM this morning when he felt like a piece got stuck. He points to the upper chest and describing the area of pressure. He is able to tolerate saliva. He tried to drink some water, he states part of it went down and he spit part of it up. Patient sitting upright in bed no acute distress. He is tolerating secretions well and speaking full sentences. Head and neck examination unremarkable. Heart is regular rate and rhythm. Lung sounds are clear. Abdomen is soft and nontender. Patient given a dose of IV glucagon. Nursing staff reports that the patient feels that he is improved. He is able to drink Coca-Cola following this without difficulty. He is monitored for about 45 minutes and notes that his symptoms have resolved. He is advised to follow a bland diet and follow-up next week for his barium swallow as scheduled. Discharge Plan Triage Chief Complaint: Foreign Body ED Provider: Stephanie Smith Dx/Rx/DC Orders Clinical Impression: Food impaction of esophagus, History of carotid artery stenosis, History of atherosclerotic heart disease, History of hypertension Instructions: ED Esophageal Foreign Body, Resolved Prescriptions: No Action cholecalciferol (vitamin D3) 25 mcg (1,000 unit) capsule 2,000 unit PO QDAY aspirin [Adult Low Dose Aspirin] 81 mg tablet,delayed release (DR/EC) 81 mg PO QDAY amlodipine 10 mg tablet 10 mg PO QDAY Qty: 90 3RF atorvastatin 20 mg tablet 20 mg PO QDAY Qty: 90 3RF hydrochlorothiazide 25 mg tablet 25 mg PO DAILY Qty: 90 3RF metoprolol tartrate 25 mg tablet 25 mg PO BID Qty: 180 3RF doxazosin 2 mg tablet 2 mg PO DAILY Qty: 60 3RF Primary Care Provider: Gladis Castro Referrals: Polo Rivas MD [Med Staff - Active Staff] - (Keep appointment for next week) Gladis Castro DO [Primary Care Provider] - Activity Restrictions/Additional Instructions: Follow a soft diet. Keep appointment for barium swallow on Wednesday. Follow-up with Dr. Rivas at your scheduled appointment next week. Return to ED for worsening or concerning symptoms. Disposition Disposition: Home, Self Care Discharge Date/Time: 10/20/23 14:41
[2023-10-20] MEDS: Glucagon 1 MG/ML Syringe IV (13:18)
[2023-10-20 14:36] VITALS: BP 170/62; PULSE 65; RESP 18; TEMP 36.6; O2SAT 99
== END 2023-10-20 14:41 | disposition home or self-care (01) ==
PROVIDERS: Emergency Provider Emergency Medicine; PCP Internal Medicine; Visit Provider Emergency Medicine
DX: T18.128A Food in esophagus causing other injury, initial encounter (principal); W44.F3XA Food entering into or through a natural orifice, initial encounter; I25.10 Atherosclerotic heart disease of native coronary artery without angina pectoris; R13.10 Dysphagia, unspecified; I12.9 Hypertensive chronic kidney disease with stage 1 through stage 4 chronic kidney disease, or unspecified chronic kidney disease; N18.9 Chronic kidney disease, unspecified; E78.5 Hyperlipidemia, unspecified; Z87.891 Personal history of nicotine dependence; Z86.73 Personal history of transient ischemic attack (TIA), and cerebral infarction without residual deficits; Z79.82 Long term (current) use of aspirin; Z79.899 Other long term (current) drug therapy; Z95.1 Presence of aortocoronary bypass graft
CPT/HCPCS: 96374; 99282; A4216; J1610

== ENCOUNTER → 2023-10-25 | Outpatient (CLI) | payer MEDICARE, SELFPAY ==
--- NOTE | 2023-10-25 09:15 | RAD_ITS ---
STUDY: X-RAY - ESOPHAGUS (BARIUM SWALLOW) WITH FLUOROSCOPY REASON FOR EXAM: Male, 88 years old. DYSPHAGIA TECHNIQUE: 20 view(s) of the esophagus were obtained following swallowing of barium. FLUOROSCOPY TIME (if supplied): (27 seconds) minutes/seconds. 9.76 mGy. COMPARISON: None. FINDINGS: There is no demonstrated esophageal foreign body. There is a 1.2 cm area of apple core narrowing in the mid esophagus. The patient ingested a 12 mm tablet of barium. The tablet is trapped at that site. Normal gastroesophageal junction, without a demonstrated hiatal hernia. There is atherosclerotic calcification of the aortic arch with tortuosity of the descending aorta. Normal visualized pulmonary parenchyma. Normal visualized osseous structures of the thorax. RAD/Esophagus Dual Contrast IMPRESSION: Apple core lesion measuring 1.2 cm in the mid esophagus with trapping of the ingested 12 mm tablet of barium. Endoscopic correlation recommended. Electronically Signed: Anthony Lemus MD at 9:51 EDT ,
== END | disposition home or self-care (01) ==
LOC: RAD 09:04
PROVIDERS: PCP Internal Medicine; Referring Provider Otolaryngology; Visit Provider Otolaryngology
DX: R13.10 Dysphagia, unspecified (principal)
CPT/HCPCS: 74221

== ENCOUNTER 2024-02-16 14:12 | Emergency (ER) | payer MEDICARE, SELFPAY ==
[2024-02-16 14:12] VITALS: BP 172/93; PULSE 72; RESP 17; TEMP 36.5; O2SAT 97; BMI 22.4
[2024-02-16] MEDS: Glucagon 1 MG/ML Syringe IV (14:36)
--- NOTE | 2024-02-16 14:39 | EX.ED.DYSGE1 ---
HPI History of Present Illness Chief Complaint: Foreign Body Informant: patient Onset/Context/Timing Onset: Today Context: Sudden Onset Timing: Continuous Quality: Stuck feeling Location: Mid chest Worsened by: Nothing Relieved by: Nothing Narrative Narrative: Patient presents with esophageal food impaction that occurred today. Patient states he was eating lunch meat sandwich today and felt like it got stuck in his esophagus. Patient states it feels like it is stuck in his mid chest. Patient states he has a history of a hiatal hernia and has had food gets stuck in the past. Patient states that he has been unable to eat or drink anything since this occurred. Patient states he tried to make himself vomit but this did not bring up the food that he ate. Patient denies any chest pain or shortness of breath. Patient denies any fevers or chills. Patient denies any cough. Patient states that he has had glucagon in the past with some success. [facility] Medical History Syncope (10/2020) History of CVA (cerebrovascular accident) Traumatic subarachnoid hemorrhage (10/2020) Hyperlipidemia Claudication Chronic kidney disease (CKD) Barretts esophagus TIA (transient ischemic attack) Atherosclerotic heart disease of [place] coronary artery without angina pectoris Left bundle branch block Carotid bruit Left carotid artery stenosis Angiopathy, peripheral Home Medications ?Medication ?Instructions ?Recorded ?Last Taken ?Type aspirin 81 mg tablet,delayed 81 mg PO QDAY 11/04/17 Unknown History release (Adult Low Dose Aspirin) cholecalciferol (vitamin D3) 25 2,000 unit PO QDAY 03/11/23 Unknown History mcg (1,000 unit) capsule amlodipine 10 mg tablet 10 mg PO QDAY #90 tabs 03/12/23 Unknown Rx atorvastatin 20 mg tablet 20 mg PO QDAY #90 tabs 03/12/23 Unknown Rx hydrochlorothiazide 25 mg tablet 25 mg PO DAILY #90 tabs 03/12/23 Unknown Rx metoprolol tartrate 25 mg tablet 25 mg PO BID #180 tabs 03/12/23 Unknown Rx pantoprazole 40 mg tablet,delayed 40 mg PO DAILY 02/10/24 Unknown History release omeprazole 20 mg capsule,delayed 20 mg PO BID #180 caps 02/11/24 Unknown Rx release Allergy/AdvReac Type Severity Reaction Status Date / Time Iodinated Contrast Media AdvReac Severe CKD Verified 02/16/24 14:12 (Iodinated Contrast- Oral and IV Dye) Family History Mother CAD (coronary artery disease) Diabetes Myocardial infarction Brother CAD (coronary artery disease) Hx of CABG Brother CAD (coronary artery disease) Surgical History History of left-sided carotid endarterectomy (2000) 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) Social History Smoking Status: Former smoker alcohol intake: current details: Rare substance use type: does not use caffeine: Yes Type: coffee Number of servings: 3 ROS ROS ED Constitutional Constitutional ED: Denies chills or fever(s) Eyes Eyes: Denies blurry vision or change in vision ENT ENT ED: Denies rhinorrhea or sore throat Cardiovascular Cardiovascular: Denies chest pain or palpitations Respiratory/Chest Respiratory/Chest: Denies cough or dyspnea Gastrointestinal Gastrointestinal: Denies nausea or vomiting Genitourinary Genitourinary ED: Denies dysuria or hematuria Musculoskeletal Musculoskeletal: Denies back pain or neck pain Integumentary Denies abscess or rash Neurologic Neurologic: Denies headache(s) or weakness Allergic/Immunologic Allergic/Immunologic ED: Denies mouth swelling or urticaria EXAM Physical Exam Const Vital Signs: 02/16/24 14:12 Temperature 97.7 F L Temperature Source Temporal Pulse Rate 72 Respiratory Rate 17 Blood Pressure 172/93 H Blood Pressure Mean 119 Pulse Ox 97 Oxygen Delivery Method Room Air Positive well nourished and well developed General Appearance ED: well developed and NAD HEENT Reports moist mucous membranes Neck supple and no JVD Resp normal respiratory effort and clear to auscultation bilaterally Cardio regular rate and regular rhythm GI non-tender and non-distended Palpation: soft Neuro oriented x3, CN's II-XII intact bilaterally and no sensory deficits noted Sensorium / Orientation: alert Motor Exam: strength 5/5 throughout Psych mental status grossly normal MDM MDM MDM Narrative Medical decision making narrative: Since the patient has had success with glucagon in the past, we will attempt this. If this does not work, I will contact Dr. Carlin for endoscopy. Patient and family understand and are agreeable with the plan. Treatment and Re-Evaluation :: Patient feels like his food went down into his stomach. Patient was given crackers and water. He was able to swallow this without difficulty. We will discharge him home. Patient was instructed to follow-up with Dr. Carlin as scheduled. Patient was instructed to return if worse in any way. Patient understood and was agreeable with the plan. All questions were answered. Discharge Plan Triage Chief Complaint: Foreign Body ED Provider: Mulugeta Gimenez Dx/Rx/DC Orders Clinical Impression: Food impaction of esophagus, Dysphagia Instructions: ED Esophageal Foreign Body, Resolved, ED Dysphagia (Adult) Prescriptions: No Action cholecalciferol (vitamin D3) 25 mcg (1,000 unit) capsule 2,000 unit PO QDAY aspirin [Adult Low Dose Aspirin] 81 mg tablet,delayed release (DR/EC) 81 mg PO QDAY amlodipine 10 mg tablet 10 mg PO QDAY Qty: 90 3RF atorvastatin 20 mg tablet 20 mg PO QDAY Qty: 90 3RF hydrochlorothiazide 25 mg tablet 25 mg PO DAILY Qty: 90 3RF metoprolol tartrate 25 mg tablet 25 mg PO BID Qty: 180 3RF pantoprazole 40 mg tablet,delayed release (DR/EC) 40 mg PO DAILY omeprazole 20 mg capsule,delayed release(DR/EC) 20 mg PO BID Qty: 180 1RF Primary Care Provider: Gladis Castro Referrals: Gladis Castro DO [Primary Care Provider] - 5-7 Days Patrick Carlin DO [Med Staff - Active Staff] - Keep [place] appointment Print Language: Citizen Of [place] Disposition Disposition: Home, Self Care
[2024-02-16 15:18] VITALS: BP 167/54; PULSE 62; RESP 18; TEMP 36.7; O2SAT 97
== END 2024-02-16 15:31 | disposition home or self-care (01) ==
PROVIDERS: Emergency Provider Emergency Medicine; PCP Internal Medicine; Visit Provider Emergency Medicine
DX: T18.108A Unspecified foreign body in esophagus causing other injury, initial encounter (principal); R13.10 Dysphagia, unspecified; N18.9 Chronic kidney disease, unspecified; E78.5 Hyperlipidemia, unspecified; I25.10 Atherosclerotic heart disease of native coronary artery without angina pectoris; Z87.891 Personal history of nicotine dependence; Z95.1 Presence of aortocoronary bypass graft; Z86.73 Personal history of transient ischemic attack (TIA), and cerebral infarction without residual deficits; Z82.49 Family history of ischemic heart disease and other diseases of the circulatory system
CPT/HCPCS: 96374; 99283; A4216; J1610

== ENCOUNTER → 2024-02-28 | Outpatient (CLI) | payer MEDICARE, SELFPAY ==
--- NOTE | 2024-02-28 08:44 | CT_ITS ---
STUDY: CT CHEST, ABDOMEN T PELVIS WITHOUT CONTRAST REASON FOR EXAM: Male, 88 years old. Possible esophageal cancer. RADIATION DOSAGE (If Supplied By Facility): CTDIvol = ( 8.12 ) mGy, DLP = ( 657.80 ) mGycm TECHNIQUE: Transaxial imaging was performed without the administration of intravenous contrast material. Oral contrast was administered. Multiplanar coronal and sagittal images were reformatted. CT scan performed according to ALARA principles. Automated exposure control used during exam. COMPARISON: No relevant prior comparison study available FINDINGS: Evaluation is limited without contrast. LUNGS: There are no pulmonary infiltrates. There are calcified granulomata noted in the right upper lobe. There are no suspicious pulmonary nodules or masses. PLEURAL SPACE: There are no pleural effusions. There is no pneumothorax. MEDIASTINUM: The patient is status post sternotomy and coronary artery bypass. There are coronary artery and cardiac valvular calcifications. The heart and pericardium are within normal limits. There is no pneumomediastinum. There is no thoracic lymphadenopathy. No definite esophageal mass is identified. THORACIC VESSELS: There is no evidence of thoracic aortic aneurysm. GALLBLADDER / BILE DUCTS: There are no calcified gallstones present. There is no intrahepatic biliary duct dilatation. The common bile duct is normal in caliber. There are no calcified ductal stones. LIVER: The liver demonstrates an unremarkable unenhanced appearance. SPLEEN: The spleen is normal in size. There are calcified granulomata noted in the spleen. PANCREAS: The pancreas demonstrates an unremarkable unenhanced appearance. ADRENAL GLANDS: The adrenal glands are within normal limits. KIDNEYS / BLADDER: There are no renal or ureteral stones. There is no hydronephrosis. There are no focal renal lesions identified on this noncontrast exam. The urinary bladder is partially distended and appears grossly unremarkable. STOMACH / BOWEL: There is a small hiatal hernia. There is no bowel obstruction or inflammation. The appendix is not visualized, but there are no findings to suggest acute appendicitis. There is a small left inguinal hernia which contains fat and nonobstructed bowel. PERITONEUM / RETROPERITONEUM: There is no abdominal or pelvic free air, free fluid or fluid collection. There is no abnormal soft tissue mass identified. There is no abdominal or pelvic lymphadenopathy. ABDOMINAL VESSELS: There are atherosclerotic calcifications noted in the aorta and its branches. The aorta is normal in caliber. The IVC is unremarkable. BONES: There are no destructive osseous lesions. SOFT TISSUES: The visualized soft tissues are within normal limits. CT/CT Chest, Abd, Pelvis WO Cont IMPRESSION: Study limited without contrast. No definite esophageal mass identified. Please note that endoscopy is significantly more sensitive for detection of esophageal cancer. No evidence of metastatic disease demonstrated on this noncontrast CT of the chest, abdomen and pelvis. No pulmonary infiltrates or pleural effusions. Evidence of prior granulomatous disease. No acute abdominal or pelvic pathology. Electronically Signed: Adan Youssef MD at 16:17 EDT ,
== END | disposition home or self-care (01) ==
PROVIDERS: PCP Internal Medicine; Referring Provider Internal Medicine Gastroenterology; Visit Provider Internal Medicine Gastroenterology
DX: J98.4 Other disorders of lung (principal); Z95.5 Presence of coronary angioplasty implant and graft; K44.9 Diaphragmatic hernia without obstruction or gangrene; K40.90 Unilateral inguinal hernia, without obstruction or gangrene, not specified as recurrent
CPT/HCPCS: 71250; 74176

== ENCOUNTER 2024-02-29 05:24 | Day surgery (SDC) | payer MEDICARE, SELFPAY ==
[2024-02-29] VITALS (7 sets, daily range): BP systolic 119–174; BP diastolic 49–81; PULSE 62–70; RESP 16–18; TEMP 36.2–36.4; O2SAT 89–97; BMI 20.9
--- NOTE | 2024-02-29 | ESO_PTH ---
PATIENT: FEI ROGERS LOC: EN U#:[id number] AGE/SX: 88/M ROOM: RE02/29/[address]: Dr. Patrick Carlin DO : 1935 BED: DIS: 02/29/2024 SPEC #: [id number] RECD: 02/29/24 12:25 STATUS: NOHEMY ESTRELLA #: [id number] JANIE: 02/29/24 00:[address]: Patrick Carlin DEPT: SURGICAL PATHOLOGY RECD BY: Umesh Nowak ENTERED: 02/29/24 12:25 SP TYPE: KERA VASQUEZ DR: Dr. Gladis Castro DO Tissues: Esophagus, NOS Procedures: Special Stain Group I Surgery Specimen Level IV Alcian Blue/PAS (control) HEADER OPERATION: EGD with biopsies, dilatation and APC PRE-OP DIAGNOSIS: Dysphagia, Bales's esophagus TISSUE SUBMITTED: Esophageal stricture biopsy MICROSCOPIC DIAGNOSIS Esophageal stricture, biopsy: Fragments of gastroesophageal mucosa with focal intestinal metaplasia (goblet cell metaplasia) consistent with Bales's esophagus. Chronic inflammation. Negative for dysplasia. See comment. BRAEDENSumi 03/01/2024 COMMENT Alcian blue/PAS stain with matched control is used in the evaluation of the specimen. Immunohistochemistry ([id number]) for P53 and Ki-67 will be performed and results will be reported separately. The specimen predominantly consists of squamous mucosa. MICROSCOPIC DESCRIPTION Slides are reviewed. GROSS DESCRIPTION Received in fixative is one container labeled with the patient's name and designated Esophageal stricture biopsy. The specimen consists of multiple irregular fragments of light gamboa soft tissue that in aggregate measure 2.5 x 1.0 x 0.1 cm. The specimen is totally submitted in one cassette. BRAEDEN/ 02/29/2024 TC:5 CPT:62491,61648
--- NOTE | 2024-02-29 | IMM_PTH ---
PATIENT: FEI ROGERS LOC: EN U#:[id number] AGE/SX: 88/M ROOM: RE02/29/[address]: Dr. Patrick Carlin DO : 1935 BED: DIS: 02/29/2024 SPEC #: [id number] RECD: 03/01/24 10:40 STATUS: NOHEMY REQ #: [id number] JANIE: 02/29/24 00:[address]: Patrick Carlin DEPT: IMMUNOHISTOCHEMISTRY RECD BY: Wilber Hong ENTERED: 03/01/24 10:41 SP TYPE: IMMUNO OTHR DR: Dr. Gladis Castro DO Tissues: Esophagus, NOS Procedures: P53 (initial) KI-67 (add) PHYSICIAN & INSTITUTION [place] [id number] SPECIMEN INFORMATION: Tissue Source: Esophageal stricture biopsy Clinical Info: Dysphagia, Bales's esophagus Specimen Number: [id number] CPT code: 84903,70900 METHODOLOGY: Deparaffinized sections of prefer/formalin-fixed tissue or PAP/DQ stained slides are incubated with monoclonal/polyclonal antibodies/oligonucleotide probes. Localization is made via biotin free immunoperoxidase method. Appropriate controls are performed and reacted as expected. Results on target cell population are indicated in the following table: RESULTS: ANTIBODY / CLONE RESULT P53 (DO-7) negative (null pattern) Ki-67 (30-9) positive, low These tests were developed and their performance characteristics determined by [facility]. They may not have been cleared or approved by the U.S. Food and Drug Administration. The FDA has determined that such clearance or approval is not necessary. The above immunohistochemical/dualISH markers are ordered and reviewed by the Pathologist. INTERPRETATION: Esophageal stricture, biopsy: Negative for dysplasia. BRAEDEN/ 03/02/2024
[2024-02-29] MEDS: Lactated Ringers 1,000 ML 15 ML IV (06:05)
--- NOTE | 2024-02-29 06:20 | PCM.HP.BLA ---
History and Physical Date of Admission: 02/29/24 88 M who presents to the office today for initial consult. [facility] ED 10.20.23 esophageal food impaction Barium Swallow X-Ray 10.25.23 Apple core lesion measuring 1.2 cm in the mid esophagus with trapping of the ingested 12 mm tablet of barium. Endoscopic correlation recommended. *BGI established 02.10.24 pt reports that in August he choked on an apple and since then has been having difficulty swallowing. pt has had upper scopes and biopsies with Dr Claire at [facility] but would like to switch care to Dr Carlin. Pt reports that during his EGD on 02.07.24 he was dilated which was slightly helpful. Pt is still having difficulty swallowing and pt and would like a second opinion. ROS Const Constitutional: Positive for weight change (weight loss); No fatigue or fever(s) ENT ENT: Positive for difficulty swallowing Cardio Cardiology: Positive for leg pain with exertion Gastro GI: Positive for difficulty swallowing; No abdominal pain, belching, bloating, change in bowel habits, change in stool character, coffee ground emesis, constipation, cramping, diarrhea, heartburn, feeling full early, excessive flatus, incontinent of stools, Vomiting blood/hematemesis, Blood in stool, loose stools, Black,tarry stools, nausea/dyspepsia, pain with swallowing, vomiting or other Musc Musculoskeletal: Positive for leg pain with exertion; No joint pain Skin Skin: No yellowing of the eye or itchy eyes Psych Psychiatric: No anxiety and No depression Endo Endocrine: Positive for weight change (weight loss); No fatigue Aller/Imm Allergy/Immunologic: No itchy eyes Alex/Lymp Hematologic/Lymphatic: Positive for easy bruising; No easy bleeding Exam Const General: cooperative and comfortable Nutritional Appearance: average body habitus and well nourished [facility] Head: normal to inspection Ears: hearing grossly normal bilaterally Nose: external nose normal Face and sinus: normal facial exam Mouth: oral mucosae normal Throat: posterior oropharynx normal Eyes General: appearance normal, both eyes and all related structures Neck Neck: normal visual inspection Chest Chest palpation & inspection: normal inspection of the chest and normal palpation of entire chest wall Resp Effort & Inspection: normal respiratory effort Auscultation: Bilateral: Clear to Auscultation Cardio Palpation: normal PMI Rate: regular rate Rhythm: regular rhythm GI Inspection: normal to inspection Auscultation: normal bowel sounds Percussion: normal to percussion Palpation: no hepatosplenomegaly Skin General: no rashes or lesions noted Neuro General: patient alert Extrem General: normal to inspection Psych Affect: normal affect Assessment and Plan Assessment and Plan (1) Dysphagia: Status: Acute (2) Barretts esophagus: Status: Acute Plan: 88-year-old gentleman with new onset esophageal dysphagia over the last 2 months. It was mostly solid food dysphagia. He had a barium esophagram that displayed and apple core lesion measuring 1.2 cm in the mid esophagus with trapping of the ingested 12 mm tablet of barium. Endoscopic correlation recommended. He had been seeing Dr. Claire where he was diagnosed with an esophageal stricture at approximately 27 to 35 cm from the incisors. He underwent 3 EGDs. For his EGD could not transverse the stricture with mild gentle dilation. His was originally thought as per the patient that he had an esophageal malignancy. The biopsies did not show any signs of adenocarcinoma or squamous cell carcinoma on his first upper endoscopy. On his separate endoscopy he was able to dilate with a 12 to 15 mm balloon dilator and deeper specimens were taken. Those also were negative for malignancy. His third upper endoscopy he was actually able to transverse the stricture. He comes in now being able to swallow a little better. He comes in today for second opinion. He does take aspirin and has been on omeprazole 20 mg and 40 mg of pantoprazole in the morning. 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 Recommendations: CT of the chest and abdomen and pelvis with oral and IV contrast. Repeat upper endoscopy. He may need endoscopic ultrasound or further workup. I have examined the patient and the H&P has been reviewed. There are no clinical changes since date of exam.
--- NOTE | 2024-02-29 06:26 | PCM.PRE.AN2 ---
ASA Classification* ASA Classification ASA Classification: 3 Assessment & Plan Anesthesia* Anesthesia Assessment Anesthesia Assessment: Discussed sedation and/or anesthesia options, risks, benefits, and alternatives with patient/parents/legal guardian/POA. Questions invited. The patient/parents/legal guardian/POA seems to understand and agrees to proceed with anesthesia plan. Reviewed the physical assessment, medical history, allergy history and patient home medications list prior to surgery/procedure/anesthetic and documented any changes. Performed airway and anesthesia risk assessments. Anesthesia Type Anesthesia Type: MAC Anesthesia Focused Assessment* Temperature: 97.6 F Pulse Rate: 68 Blood Pressure: 162/54 Respiratory Rate: 16 Pulse Ox: 94 Airway Assessment Mouth opens: >3 cm Mallampati Score: II Focused Labs Anesthesia Preop lab: CBC WBC 8.5 K/mm3 (4.4-11.0) 04/06/22 08:11 RBC 4.31 M/mm3 (4.6-6.2) L 04/06/22 08:11 Hgb 13.2 g/dL (13.0-16.5) 04/06/22 08:11 Hct 41.2 % (40-54) 04/06/22 08:11 Plt Count 298 K/mm3 (150-450) 04/06/22 08:11 CHEMISTRY Potassium 4.1 mmol/L (3.5-5.1) 03/24/23 08:28 Sodium 139 mmol/L (136-145) 03/24/23 08:28 Magnesium 2.4 mg/dL (1.6-2.6) 03/06/22 08:31 Phosphorus 3.8 mg/dL (2.5-4.9) 11/09/18 07:56 BUN 36 mg/dL (7-18) H 03/24/23 08:28 Creatinine 1.81 mg/dL (0.70-1.30) H 03/24/23 08:28 Glucose 116 mg/dL (74-106) H 03/24/23 08:28 TSH 2.65 uIU/mL (0.358-3.74) 03/06/22 08:31 COAG Pre-Assessment Diagnosis/Proposed Procedure Planned Operative Procedure(s): EGD Anesthesia History Anesthesia History - liaison officer: Anesthesia History - liaison officer Hx Hospitalization No 08/07/24 11:04 Any Problems With Anesthesia Yes: SLOW TO AWAKEN 02/23/24 11:04 Cholinesterase deficiency No 02/23/24 11:04 You/Your Family Experience No 02/23/24 11:04 fever (hyperthermia) with Relationship Recent Exposure to Contagious No 02/29/24 05:52 Disease Does patient have nerve No 02/23/24 11:04 stimulator Patient instructed to have device shut off --Does patient have Pacemaker No 02/29/24 05:53 or ICD? When Was Last Pacemaker Check QUESTION #4 FULL TEXT: You/Your Family Experience fever (hyperthermia) with Anesthesia Last Oral Intake Last Oral intake: Last Oral Intake NPO since 19:00 02/29/24 05:53 Meds taken in AM with sips of No 02/29/24 05:53 water? Meds patient instructed to take am of surgery PONV PONV - liaison officer: PONV - liaison officer Female No 02/23/24 11:04 HX of Motion Sickness No 02/23/24 11:04 HX of N/V After Surgery No 02/23/24 11:04 Non-Smoker Yes 02/23/24 11:04 Duration of Surgery greater No 02/23/24 11:04 than 60 minutes Number of Risk Factors 1 02/23/24 11:04 PONV Score Low Risk 02/23/24 11:04 Height & Weight Height & Weight: Anesthesia: Height & Weight Height 5 ft 6 in 02/29/24 05:53 Weight: 58.967 kg 02/29/24 05:53 Body Mass Index (BMI) 20.9 02/29/24 05:53 Respiratory Assessment Respiratory Assessment - liaison officer: Respiratory Tract Infection Hx - liaison officer Hx Respiratory Tract Infection No 02/23/24 11:04 STOP Sleep Apnea STOP Sleep Apnea - liaison officer: STOP Sleep Apnea - liaison officer Hx Hypertension Yes: CONTROLLED WITH MEDS 02/23/24 11:04 Hx Sleep Apnea No 02/23/24 11:04 CPAP BIPAP Do you snore loudly (louder No 02/23/24 11:04 than talking or can be heard Do you often feel tired/ No 02/23/24 11:04 fatigued/ sleepy during daytime? Has anyone observed you stop No 02/23/24 11:04 breathing during sleep? STOP Results Negative 02/23/24 11:04 QUESTION #5 FULL TEXT : Do you snore loudly (louder than talking or can be heard through closed doors)? Tobacco Use History Tobacco Use History - liaison officer: Tobacco Use History - liaison officer Tobacco Use Non-smoker 04/17/21 08:27 Smoking Status Former smoker 02/23/24 11:04 Hx Tobacco Use No 02/23/24 11:04 Years Smoking Packs Smoked per Day Smoking Cessation Date was No - quit smoking greater 02/23/24 11:04 within the last 15 years than 15 years ago Hx Smoking Cessation Date Hx Smoking Cessation No 02/23/24 11:04 Counseling Hematologic Medial History Hematologic Hx - liaison officer: Hematologic Medical Hx - certified professional ergonomist Hx of Blood Transfusion No 02/23/24 11:04 Hx of Transfusion in last 3 No 02/23/24 11:04 Months Date of Last Transfusion (if within last 3 months) Ever experience any problems No 02/23/24 11:04 with transfusion(s)? Specify any problems Hx of Preganancy in last 3 N/A 02/23/24 11:04 Months Nurse Filling Out Transfusion DSCHRIBER 02/23/24 11:04 & Questions: Date: 02/23/24 02/23/24 11:04 Time: 11:02/23/24 11:04 Patient unable to answer at this time (ie. confused, unrespo /Reproduction History /Reproductive History - liaison officer: /Reproductive Hx- liaison officer Hx Now No 02/23/24 11:04 Gestational Age (in weeks): EDC: Hx Hx Para Hx Section SAB No 02/23/24 11:04 Active Medications Active Medications: Current Medications Generic Name Dose Route Start Last Admin Trade Name Freq PRN Reason Stop Dose Admin Lactated Ringer's 1,000 mls @ 15 mls/hr 02/29/24 05:45 02/29/24 06:05 IV 15 mls/hr .Q48H HYACINTH Administration PFSH Medical History (Updated 02/24/24 @ 00:01 by Background Daemon) Wears hearing aid Wears glasses Wears partial dentures Wears dentures History of renal disease High cholesterol Easy bruising Injury of head and neck Difficulty swallowing History of hiatal hernia Gastric reflux Former smoker Leg cramps History of pain when walking History of edema History of echocardiogram Cardiology follow-up encounter Syncope (10/2020) History of CVA (cerebrovascular accident) Traumatic subarachnoid hemorrhage (10/2020) Hyperlipidemia Claudication Barretts esophagus TIA (transient ischemic attack) Atherosclerotic heart disease of [place] coronary artery without angina pectoris Left bundle branch block Carotid bruit Left carotid artery stenosis Angiopathy, peripheral Home Medications ?Medication ?Instructions ?Recorded ?Last Taken ?Type aspirin 81 mg tablet,delayed 81 mg PO QDAY 11/04/17 02/26/24 History release (Adult Low Dose Aspirin) cholecalciferol (vitamin D3) 25 1,000 unit PO QDAY 03/11/23 02/26/24 History mcg (1,000 unit) capsule amlodipine 10 mg tablet 10 mg PO QDAY #90 tabs 03/12/23 02/28/24 Rx hydrochlorothiazide 25 mg tablet 25 mg PO DAILY #90 tabs 03/12/23 02/28/24 Rx metoprolol tartrate 25 mg tablet 25 mg PO BID #180 tabs 03/12/23 02/28/24 Rx omeprazole 20 mg capsule,delayed 20 mg PO BID #180 caps 02/11/24 02/28/24 Rx release atorvastatin 20 mg tablet 20 mg PO QHS 02/23/24 02/28/24 History Allergy/AdvReac Type Severity Reaction Status Date / Time Iodinated Contrast Media AdvReac Severe CKD Verified 02/29/24 05:50 (Iodinated Contrast- Oral and IV Dye) Family History Mother CAD (coronary artery disease) Diabetes Myocardial infarction Brother CAD (coronary artery disease) Hx of CABG Brother CAD (coronary artery disease) Surgical History (Updated 02/23/24 @ 11:15 by Latoya Krishnamurthy) Hx of right cataract extraction Hx of left cataract extraction Hx of colonoscopy Hx of foot surgery History of left-sided carotid endarterectomy (2000) 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
--- NOTE | 2024-02-29 07:10 | PCM.POST.ANE ---
Anesthesia: Postop Eval I Current Vital Signs Temperature: 97.4 F Pulse Rate: 67 Blood Pressure: 119/49 Respiratory Rate: 18 Pulse Ox: 93 Assessment Airway patent: Yes Spontaneous unlabored respirations: Yes nausea: No Vomiting: No Anesthesia Complication: No Fluid Hydration Crystalloid volume administer (ml): 300 Total IV fluid infused: 300 Progress Note Anesthesia document: Postop Eval 1 completed: Yes
--- NOTE | 2024-02-29 07:11 | OP.CCLET_ITS ---
02/29/2024 Gladis Castro [address] [place] [address] Re : Upper GI endoscopy procedure for Greg Bowman Dear Dr. Casrto This procedure was performed on Thursday, February 29, 2024. My impressions and recommendations are as follows: Impressions : - Benign-appearing esophageal stenosis. Dilated. Biopsied. Treated with argon plasma coagulation (APC). 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 - Medium-sized hiatal hernia. - No gross lesions in the first portion of the duodenum. Recommendations : - Discharge patient to home. - Resume previous diet. - Continue present medications. - Await pathology results. - Repeat upper endoscopy in 2 months for surveillance. My findings are described in the full procedure note, which is enclosed. If I can be of further assistance, please feel free to contact me at . Sincerely, Patrick Carlin, 02/29/2024 7:10:06 AM This report has been signed electronically.
--- NOTE | 2024-02-29 07:11 | OP.EGD_ITS ---
Patient Name: Greg Bowman Procedure Date: 02/29/2024 6:26 AM Date of : 1935 Age: 88 Procedure: Upper GI endoscopy Indications: Dysphagia Providers: Patrick Carlin DO Medicines: Monitored Anesthesia Care Patient Profile: This is an 88 year old male. Refer to note in patient chart for documentation of history and physical. Patient has symptoms of dysphagia with both liquids and solids. Complications: No immediate complications. Procedure: Pre-Anesthesia Assessment: - Prior to the procedure, a History and Physical was performed, and patient medications and allergies were reviewed. The patient is competent. The risks and benefits of the procedure and the sedation options and risks were discussed with the patient. All questions were answered and informed consent was obtained. Patient identification and proposed procedure were verified by the physician in the pre-procedure area. Mental Status Examination: alert and oriented. Airway Examination: normal oropharyngeal airway and neck mobility. Respiratory Examination: clear to auscultation. CV Examination: normal. Prophylactic Antibiotics: The patient does not require prophylactic antibiotics. Prior Anticoagulants: The patient has taken no anticoagulant or antiplatelet agents except for NSAID medication. ASA Grade Assessment: II - A patient with mild systemic disease. After reviewing the risks and benefits, the patient was deemed in satisfactory condition to undergo the procedure. The anesthesia plan was to use monitored anesthesia care (MAC). Immediately prior to administration of medications, the patient was re-assessed for adequacy to receive sedatives. The heart rate, respiratory rate, oxygen saturations, blood pressure, adequacy of pulmonary ventilation, and response to care were monitored throughout the procedure. The physical status of the patient was re-assessed after the procedure. After obtaining informed consent, the endoscope was passed under direct vision. Throughout the procedure, the patient's blood pressure, pulse, and oxygen saturations were monitored continuously. The Endoscope was introduced through the mouth, and advanced to the second part of duodenum. The upper GI endoscopy was accomplished without difficulty. The patient tolerated the procedure well. Scope In: 6:42:13 AM Scope Out: 7:03:46 AM Total Procedure Duration Time 0 hours 21 minutes 33 seconds Findings: One benign-appearing, intrinsic severe (stenosis; an endoscope cannot pass) stenosis was found 23 to 28 cm from the incisors. This stenosis measured 3 mm (inner diameter) x 4 cm (in length). The stenosis was traversed after dilation. A TTS dilator was passed through the scope. Dilation with a 15 mm balloon dilator was performed to 15 mm. The dilation site was examined following endoscope reinsertion and showed moderate improvement in luminal narrowing. Biopsies were taken with a cold forceps for histology. Coagulation for tissue destruction using argon plasma at 0.3 liters/minute and 20 deras was successful. Estimated blood loss was minimal. There were esophageal mucosal changes secondary to established long-segment Bales's disease present in the lower third of the esophagus. The maximum longitudinal extent of these mucosal changes was 6 cm in length. A medium-sized hiatal hernia was present. No other significant abnormalities were identified in a careful examination of the stomach. No gross lesions were noted in the first portion of the duodenum. Impression: - Benign-appearing esophageal stenosis. Dilated. Biopsied. Treated with argon plasma coagulation (APC). 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 - Medium-sized hiatal hernia. - No gross lesions in the first portion of the duodenum. Recommendation: - Discharge patient to home. - Resume previous diet. - Continue present medications. - Await pathology results. - Repeat upper endoscopy in 2 months for surveillance. Procedure Code(s): --- Professional --- 61631, Esophagogastroduodenoscopy, flexible, transoral; with ablation of tumor(s), polyp(s), or other lesion(s) (includes pre- and post-dilation and guide wire passage, when performed) 60381, 59,51, Esophagogastroduodenoscopy, flexible, transoral; with biopsy, single or multiple CPT copyright 2021 [employer]. All rights reserved. The codes documented in this report are preliminary and upon chemical operator review may be revised to meet current compliance requirements. Patrick Carlin DO 02/29/2024 7:10:06 AM This report has been signed electronically. Number of Addenda: 0 Note Initiated On: 02/29/2024 6:26 AM
--- NOTE | 2024-02-29 07:44 | POSTOPAN2_ITS ---
Anesthesia Postop Eval I Sum Postop Eval Completion status Anesthesia document: Postop Eval 1 completed: Yes Anesthesia Postop Eval I Summary Anesthesia Postop Eval I Summary: Anesthesia Postop Eval I: Assessment Summary Airway patent Yes 02/29/24 07:10 SOFTWARE ENGINEER [email or web address] Spontaneous unlabored Yes 02/29/24 07:10 SOFTWARE ENGINEER [email or web address].[email or web address] respirations Mental status nausea No 02/29/24 07:10 SOFTWARE ENGINEER [email or web address].[email or web address] Vomiting No 02/29/24 07:10 SOFTWARE ENGINEER [email or web address].[email or web address] Anesthesia Postop Eval I: Fluid Summary Crystalloid volume administer 300 02/29/24 07:10 SOFTWARE ENGINEER [email or web address].CSIR (ml) Colloids volume administered ( ml) Blood Product volume administered (ml) Total IV fluid infused 300 02/29/24 07:10 SOFTWARE ENGINEER [email or web address].[email or web address] Anesthesia Postop Eval I: Summary Notes Anesthesia Complication No 02/29/24 07:10 SOFTWARE ENGINEER [email or web address].CSIR Anesthesia Complication Comment: Post-operative progress note Anesthesia: Postop Eval II Evaluation Mental status: Awake Pain Level: 0 nausea: No Vomiting: No
--- NOTE | 2024-02-29 07:44 | PCM.POSTANE2 ---
Anesthesia Postop Eval I Sum Postop Eval Completion status Anesthesia document: Postop Eval 1 completed: Yes Anesthesia Postop Eval I Summary Anesthesia Postop Eval I Summary: Anesthesia Postop Eval I: Assessment Summary Airway patent Yes 02/29/24 07:10 PROFESSIONAL POKER PLAYER.[email or web address] Spontaneous unlabored Yes 02/29/24 07:10 PROFESSIONAL POKER PLAYER.CSIR respirations Mental status nausea No 02/29/24 07:10 PROFESSIONAL POKER PLAYER.CSIR Vomiting No 02/29/24 07:10 PROFESSIONAL POKER PLAYER.CSIR Anesthesia Postop Eval I: Fluid Summary Crystalloid volume administer 300 02/29/24 07:10 PROFESSIONAL POKER PLAYER.CSIR (ml) Colloids volume administered ( ml) Blood Product volume administered (ml) Total IV fluid infused 300 02/29/24 07:10 PROFESSIONAL POKER PLAYER.CSIR Anesthesia Postop Eval I: Summary Notes Anesthesia Complication No 02/29/24 07:10 PROFESSIONAL POKER PLAYER.CSIR Anesthesia Complication Comment: Post-operative progress note Anesthesia: Postop Eval II Evaluation Mental status: Awake Pain Level: 0 nausea: No Vomiting: No
== END 2024-02-29 07:53 | disposition home or self-care (01) ==
LOC: EN 05:24 → AC 05:25
PROVIDERS: PCP Internal Medicine; Referring Provider Internal Medicine; Visit Provider Internal Medicine Gastroenterology
PROC: 0DJ08ZZ Inspection of Upper Intestinal Tract, Via Natural or Artificial Opening Endoscopic (ICD-10-PCS; CPT 43235; principal; 2024-02-29 06:25)
DX: K22.2 Esophageal obstruction (principal); N18.30 Chronic kidney disease, stage 3 unspecified; I12.9 Hypertensive chronic kidney disease with stage 1 through stage 4 chronic kidney disease, or unspecified chronic kidney disease; R13.10 Dysphagia, unspecified; K22.70 Barrett's esophagus without dysplasia; K44.9 Diaphragmatic hernia without obstruction or gangrene
CPT/HCPCS: 43249; 43239; 88305; 88312; 88341; 88342; J7120; J2405

== ENCOUNTER 2024-04-10 18:20 | Observation (INO) | payer MEDICARE, SELFPAY ==
[2024-04-10] VITALS (7 sets, daily range): BP systolic 168–184; BP diastolic 45–67; PULSE 75–101; RESP 15–18; TEMP 36.6; O2SAT 97–100; BMI 20.5
--- NOTE | 2024-04-10 19:11 | EDS_ITS ---
HPI HPI - GI History of Present Illness Chief Complaint: Foreign Body Narrative Narrative: 88-year-old male past medical history of esophageal stricture, being seen by Dr. Carlin, scheduled for esophageal stenting tomorrow at noon presents with foreign body sensation of the esophagus. He also has history of a hiatal hernia. He states that this evening he was eating chicken and mashed potatoes at around 530, almost 2 hours ago, what it felt like something got stuck. A few months ago during the summer, he had esophageal dilation was told that he would need stenting in the future. He was told that he could eat what ever he wanted by gastroenterology as long as it was small bites. He had been doing well until this evening. He has been to the emergency department previously, 3 or 4 times in the past where he has received a muscle relaxer and the sensation has passed. He tried to swallow Coke in the triage area, but vomited it back up. He has been having vomiting at least 6-8 times this evening since he felt like the food bolus is stuck. [facility] Medical History Hypertension Wears hearing aid Wears glasses Wears partial dentures Wears dentures History of renal disease High cholesterol Easy bruising Injury of head and neck Difficulty swallowing History of hiatal hernia Gastric reflux Former smoker Leg cramps History of pain when walking History of edema History of echocardiogram Cardiology follow-up encounter Syncope (10/2020) History of CVA (cerebrovascular accident) Traumatic subarachnoid hemorrhage (10/2020) Hyperlipidemia Claudication Barretts esophagus TIA (transient ischemic attack) Atherosclerotic heart disease of [place] coronary artery without angina pectoris Left bundle branch block Carotid bruit Left carotid artery stenosis Angiopathy, peripheral Home Medications ?Medication ?Instructions ?Recorded ?Last Taken ?Type aspirin 81 mg tablet,delayed 81 mg PO QDAY 11/04/17 02/26/24 History release (Adult Low Dose Aspirin) cholecalciferol (vitamin D3) 25 1,000 unit PO QDAY 03/11/23 02/26/24 History mcg (1,000 unit) capsule omeprazole 20 mg capsule,delayed 20 mg PO BID #180 caps 02/11/24 02/28/24 Rx release amlodipine 10 mg tablet 10 mg PO DAILY #90 TABLETS 03/21/24 Unknown Rx hydrochlorothiazide 25 mg tablet 25 mg PO DAILY #90 TABLETS 03/21/24 Unknown Rx metoprolol tartrate 25 mg tablet 25 mg PO BID #180 TABLETS 03/21/24 Unknown Rx atorvastatin 20 mg tablet 20 mg PO QPM 03/27/24 Unknown History Allergy/AdvReac Type Severity Reaction Status Date / Time Iodinated Contrast Media AdvReac Severe CKD Verified 04/10/24 18:23 (Iodinated Contrast- Oral and IV Dye) Family History Mother CAD (coronary artery disease) Diabetes Myocardial infarction Brother CAD (coronary artery disease) Hx of CABG Brother CAD (coronary artery disease) Surgical History History of esophagogastroduodenoscopy (EGD) Hx of right cataract extraction Hx of left cataract extraction Hx of colonoscopy Hx of foot surgery History of left-sided carotid endarterectomy (2000) 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) Social History Smoking Status: Former smoker alcohol intake: current details: Rare substance use type: does not use caffeine: Yes Type: coffee Number of servings: 3 ROS ROS ED ROS Narrative Constitutional: No fever, no chills. HEENT: No sore throat. No neck pain. No loss of vision. No rhinorrhea. Cardiovascular: No chest pain. No palpitations. No pedal edema. Respiratory: No cough, no shortness of breath. Abdominal: No abdominal pain. Positive nausea and vomiting. Foreign body sensation lower esophagus. Genitourinary: No dysuria. No hematuria. Musculoskeletal: No myalgias. No arthralgias. Neurologic: No headaches. No dizziness. No lightheadedness. Skin: No rash. No change in color. Psychiatric: No depression. No anxiety. EXAM Physical Exam Narrative Exam Narrative: Afebrile. Vital signs noted. Nontoxic-appearing. Regular rate and rhythm. Lungs clear to auscultation bilaterally. Abdomen soft nontender with normal active bowel sounds. HEENT examination shows his airway to be patent. There is no drooling or trismus. He is resting comfortably with head of the bed at 30 degrees. Const Vital Signs: 04/10/24 18:21 Temperature 98 F Temperature Source Oral Pulse Rate 75 Respiratory Rate 18 Blood Pressure 175/67 H Blood Pressure Mean 103 Pulse Ox 100 Oxygen Delivery Method Room Air MDM MDM MDM Narrative Medical decision making narrative: I reviewed his prior records. Additionally, is able to speak to his resolution analyst, Dr. Carlin. While he will be given glucagon and saline lock placed, was felt that he will require admission for endoscopy tomorrow. Dr. Carlin would like the patient to be discussed with the hospitalist and assigned to observation. Patient is in stable condition. I was able to speak to Dr. Mullins. CBC and BMP are pending which she will check. Patient assigned observation on the general medical floor in stable condition. History & Record Review Discussion w/independent historian: Patient and Family Management Discussion w/another healthcare provider: Hospitalist (Dr. Mullins) and Document Improvement Specialist (Dr. Carlin) Discharge Plan Dx/Rx/DC Orders Clinical Impression: Esophageal stricture, Esophageal foreign body, Dysphagia Disposition Disposition: Acute Care Hospital [facility]
--- NOTE | 2024-04-10 19:22 | PCM.HP.STD ---
[facility] - General General Date of Admission: 04/10/24 Date of Service: 04/10/24 Chief Complaint: Foreign Body Stuck in Esophagus. [facility] Narrative FEI ROGERS, is a 88 M with a past medical history of essential hypertension, hyperlipidemia, remote history of tobacco abuse, CAD; s/p CABG x 5 (2007), history of Left carotid artery stenosis; s/p CEA x 2 (2000), LBBB, history of traumatic SDH (2020), history of CVA (2020), history of syncope (2020), history of peripheral angiopathy with claudication, CKD; stage III (with baseline creatinine of ~1.8 mg/dL), history of vitamin D deficiency, listed allergy to IV contrast dye and GERD; with history of Bales's esophagus, dysphagia and subsequent esophageal stenosis; s/p dilatation procedure by Dr. Carlin a few months ago with EGD done on 02/29/2024 with a prescheduled esophageal stent planned for the AM who presents to [facility] ER complaining he feels like a foreign body is stuck in his esophagus. Mr. Rogers reports his symptoms began approximately two hours prior to arrival when he was eating his last meal of chicken and mashed potatoes ~5:30 PM when he felt like something got stuck in his esophagus and would not pass. He had been doing well until tis evening and he states he was told he could eat whatever he wanted as long as it was in small bites. He states he has been treated in the past with IV Glucagon to enhance smooth muscle relaxation ~3-4 times in the past with good results. He was given Coca Cola in the triage area, but vomited it back up without resolution of the sensation of obstruction. He admits to having nausea and bilious emesis ~6-8 times this evening but without resolution of his symptoms of a foreign body sensation. There was no associated fever, chills, chest pain, abdominal pain, SOB or headache. In the ER he was diagnosed with a suspected foreign body stuck in his esophagus in the setting of a known history of esophageal stenosis with dysphagia in the setting of chronic GERD; with Bales's esophagus complicated by intractable nausea and vomiting and he was then admitted to the general medical floor under observation status for ongoing care for a stay that is expected to be less than 2 midnights. [facility] Medical History (Updated 04/11/24 @ 01:04 by Zoie Burk) Hiatal hernia Kidney disease TIA (transient ischemic attack) Hypertension Wears hearing aid Wears glasses Wears partial dentures Wears dentures History of renal disease High cholesterol Easy bruising Injury of head and neck Difficulty swallowing History of hiatal hernia Gastric reflux Former smoker Leg cramps History of pain when walking History of edema History of echocardiogram Cardiology follow-up encounter Syncope (10/2020) History of CVA (cerebrovascular accident) Traumatic subarachnoid hemorrhage (10/2020) Hyperlipidemia Claudication Barretts esophagus TIA (transient ischemic attack) Atherosclerotic heart disease of [place] coronary artery without angina pectoris Left bundle branch block Carotid bruit Left carotid artery stenosis Angiopathy, peripheral Home Medications ?Medication ?Instructions ?Recorded ?Last Taken ?Type aspirin 81 mg tablet,delayed 81 mg PO QDAY 11/04/17 02/26/24 History release (Adult Low Dose Aspirin) cholecalciferol (vitamin D3) 25 1,000 unit PO QDAY 03/11/23 02/26/24 History mcg (1,000 unit) capsule omeprazole 20 mg capsule,delayed 20 mg PO BID #180 caps 02/11/24 02/28/24 Rx release amlodipine 10 mg tablet 10 mg PO DAILY #90 TABLETS 03/21/24 Unknown Rx hydrochlorothiazide 25 mg tablet 25 mg PO DAILY #90 TABLETS 03/21/24 Unknown Rx metoprolol tartrate 25 mg tablet 25 mg PO BID #180 TABLETS 03/21/24 Unknown Rx atorvastatin 20 mg tablet 20 mg PO QPM 03/27/24 Unknown History Allergy/AdvReac Type Severity Reaction Status Date / Time Iodinated Contrast Media AdvReac Severe CKD Verified 04/10/24 18:23 (Iodinated Contrast- Oral and IV Dye) Family History Mother CAD (coronary artery disease) Diabetes Myocardial infarction Brother CAD (coronary artery disease) Hx of CABG Brother CAD (coronary artery disease) Surgical History History of esophagogastroduodenoscopy (EGD) Hx of right cataract extraction Hx of left cataract extraction Hx of colonoscopy Hx of foot surgery History of left-sided carotid endarterectomy (2000) 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) Social History Smoking Status: Former smoker alcohol intake: current details: Rare substance use type: does not use caffeine: Yes Type: coffee Number of servings: 3 ROS ROS Narrative Review of Systems: Constitutional: Patient denies fever or chills. Eyes: Patient denies changes in vision or discharge from eyes. ENT: Patient admits to foreign body sensation in esophagus but he denies denies runny nose or ear pain. Resp: Patient denies SOB or cough. CV: Patient denies chest pain, palpitations or hear racing. GI: Patient admits to difficulty swallowing with foreign body sensation in esophagus complicated by nausea and bilious emesis ~6-8 times as per HPI. : Patient denies dysuria or hematuria. MSK: Patient denies arthralgias or myalgias. Skin: Patient denies rash, abscess, wound or jaundice. Psych: Patient denies symptoms of uncontrolled depression or anxiety. Neuro: Patient denies headache, paresthesias or focal neurologic deficits. Allergy: Patient denies lip swelling, tongue swelling or urticaria. Hematology: Patient denies easy bleeding or easy bruisability. Endocrinology: Patient denies polyuria, polydipsia or polyphagia. 14 point ROS otherwise negative except for positives noted above in HPI. Vital Signs Vital Signs Vital Signs: 04/10/24 18:21 Temperature 98 F Temperature Source Oral Pulse Rate 75 Respiratory Rate 18 Blood Pressure 175/67 H Blood Pressure Mean 103 Pulse Ox 100 Oxygen Delivery Method Room Air Weight Weight: 127 lb Body Mass Index (BMI) 20.5 Physical Exam Const alert, oriented x3, average body habitus and healthy appearing Constitutional Narrative: Mild distress noted. General Appearance: cooperative HEENT normocephalic, head/scalp atraumatic, hearing grossly normal bilaterally and moist oral mucous membranes Eyes PERRL and EOMs intact bilaterally Neck no lymphadenopathy and supple Resp normal respiratory effort, no retractions, no use of accessory muscles and clear to auscultation bilaterally Cardio regular rate and regular rhythm GI normal to inspection, nondistended, normoactive bowel sounds, soft to palpation, non-tender and non-distended Extremity normal to inspection, full ROM and no clubbing, cyanosis or edema Skin Skin Narrative: Patient has no evidence of wounds, rash or jaundice. Neuro oriented x3, CN's II-XII intact bilaterally, moves all extremities and no focal motor deficits Sensorium / Orientation: awake, alert, oriented to person, oriented to place and oriented to time Speech: speech normal Psych Mood & Affect: anxious Results Medical Records Data Attestation: I reviewed the patient's medical records Lab / Micro Data Attestation: I reviewed the patient's lab results. 04/10/24 19:27 04/10/24 19:27 Assessment & Plan Assessment/Plan (1) Esophageal foreign body: QUALIFIERS: Encounter type: initial encounter Qualified Code(s): T18.108A - Unspecified foreign body in esophagus causing other injury, initial encounter (2) Esophageal stricture: (3) Dysphagia: QUALIFIERS: Dysphagia type: unspecified Qualified Code(s): R13.10 - Dysphagia, unspecified (4) Intractable nausea and vomiting: (5) GERD (gastroesophageal reflux disease): QUALIFIERS: Esophagitis presence: esophagitis presence not specified Qualified Code(s): K21.9 - Gastro-esophageal reflux disease without esophagitis (6) Barretts esophagus: QUALIFIERS: Bales's esophagus type: with dysplasia of unspecified degree Qualified Code(s): K22.719 - Bales's esophagus with dysplasia, unspecified (7) Essential hypertension: PLAN: Plan 1. Foreign Body in Esophagus with intractable nausea and vomiting - Admit to general medical floor under observation status. Keep strict NPO. Patient treated empirically with IV Glucagon to enhance smooth muscle relaxation in ER. Start Protonix 40 mg IV daily plus give Zofran IV prn for nausea and vomiting. Give Morphine IV prn for severe (level 6-10/10) pain. Finally, we will consult Dr. Carlin of gastroenterology to see this patient on-rounds in the AM for further recommendations with help appreciated in advance. 2. GERD; with history of Bales's esophagus, dysphagia and subsequent esophageal stenosis; s/p dilatation procedure by Dr. Carlin a few months ago with EGD done on 02/29/2024 with a prescheduled esophageal stent planned for the AM complicating #1 - Noted. Resume care plan outline above and monitor for improvement. 3. ARF in the setting of CKD; stage III (with baseline creatinine of ~1.8 mg/dL) with creatinine up to 2.51 mg/dL present on admission compounding #1 & #2 - Gently volume resuscitate, avoid potentially nephrotoxic agents and then recheck renal indices in the AM to ensure improvement. 4. Essential hypertension - Give Hydralazine IV prn for systolic blood pressure > 160 mmHg. 5. Hyperlipidemia - Restart statin once patient can tolerate oral intake. 6. Remote history of tobacco abuse - Noted. 7. CAD; s/p CABG x 5 (2007) - Stable. Resume BASA daily when safe to do so. 8. History of Left carotid artery stenosis; s/p CEA x 2 (2000) - Stable. 9. History of LBBB - Noted. 10. History of traumatic SDH (2020) - Stable. 11. History of CVA (2020) - Stable. 12. History of syncope (2020) - Noted. 13. History of peripheral angiopathy with claudication - Stable. 14. History of vitamin D deficiency - Check vitamin D levels. 15. Listed allergy to IV contrast dye - Avoid IV contrast if at all possible. He would require pretreatment with IV steroids and IV antihistamines per protocol if contrast is needed. 16. DVT prophylaxis - SCD's only with EGD pending in AM for #1. Total time: Approximately 70 minutes. Update: Patient reported his esophageal food bolus passed shortly after he was treated with IV Glucagon. He is much more comfortable now and he is looking forward to his esophageal stent placement. Charges/Coding Visit Charges OBSV E&M: 38945 Observ/hosp same date L2
[2024-04-10] MEDS: Glucagon 1 MG/ML Syringe IV (19:26)
[2024-04-10 19:51] LABS: Absolute Lymphocyte Count 1.06 X10^3/uL (0.83-4.51); Absolute Neutrophil Count 6.5 X10^3/uL (2.0-7.7); Basophil# 0.04 X10^3/uL; Basophil% 0.4 % (0-1); Eosinophil# 0.11 X10^3/uL; Eosinophils% 1.2 % (0-5); Hematocrit 39.2 % (40-54); Lymphocyte # 1.06 X10^3/ul (0.83-4.51); Lymphocyte % 11.9 % (19-41); Mean Corp Hgb Conc 33.2 g/dL (32-36); Mean Corpuscular Hgb 30.7 pg (27.0-32.0); Mean Corpuscular Volume 92.7 fL (80-94); Mean Platelet Vol. 10.3 fl (6.2-12.0); Monocyte# 1.16 X10^3/uL; NRBC Flagged by Analyzer 0 % (0-5); Neutrophil # 6.49 X10^3/uL (2.7-7.7); Neutrophil % 73.1 % (47-70); Platelet Count 277 K/mm3 (150-450); RBC Distribution Width CV 12.9 % (11.6-14.6); RBC Distribution Width SD 43.6 fl (35.1-43.9); Red Blood Count 4.23 M/mm3 (4.6-6.2); White Blood Count 8.9 K/mm3 (4.4-11.0)
[2024-04-10 20:01] LABS: Anion Gap 7 (5-15); BUN 49 mg/dL (7-18); BUN/Creat Ratio 19.6 RATIO (10-20); Calcium,Total 9.4 mg/dL (8.5-10.1); Chloride 99 mmol/L (98-107); EST Glomerular Filtration Rate 26 mL/min (>60); Est Glom Filt Rate - Afr Amer 32 mL/min (>60); Estimated Creatinine Clearance 16.96 ml/min; Glucose 131 mg/dL (74-106); Potassium 3.8 mmol/L (3.5-5.1); Sodium Level 135 mmol/L (136-145)
[2024-04-10] MEDS: hydrALAZINE 20 MG/ML Vial 5 MG IV (22:10)
[2024-04-10] MEDS: Pantoprazole Sodium 40 MG in 0.9% Normal Saline (100mL MB+) 100 ML 330 MG IV (22:20)
[2024-04-10] MEDS: 0.9% Normal Saline (1000mL) 1,000 ML 70 ML IV (22:21)
[2024-04-11] VITALS (10 sets, daily range): BP systolic 142–167; BP diastolic 47–63; PULSE 69–81; RESP 14–16; TEMP 36.3–36.6; O2SAT 92–99; BMI 21.2
--- NOTE | 2024-04-11 | ESO_PTH ---
PATIENT: FEI ROGERS LOC: MS3 U#:[id number] AGE/SX: 88/M ROOM: [facility] [place] RE04/10/[address]: Dr. Tanvir Nina MD : 1935 BED: 1 DIS: 04/11/2024 SPEC #: [id number] RECD: 04/11/24 14:11 STATUS: NOHEMY DE [place] #: [id number] JANIE: 04/11/24 00:[address]: Patrick Carlin DEPT: SURGICAL PATHOLOGY RECD BY: Umesh Nowak ENTERED: 04/12/24 08:00 SP TYPE: ESOPH BX OTHR DR: DO Dr. Gladis Goode DO Dr. Nicholas F Kotsonis, MD Dr. Rahsaan Friend, DO Tissues: Esophagus, NOS Procedures: Special Stain Group I Surgery Specimen Level IV Alcian Blue/PAS (control) Comments: @ Ordering doctor for SUIV edited from to @ by RAOUL at 04/12/24 08 @ Submitting doctor edited from to @ by RAOUL at 04/12/24 08 HEADER OPERATION: EGD with stent placement, biopsy PRE-OP DIAGNOSIS: Esophageal foreign body, esophageal stricture, dysphagia, GERD, Bales's esophagus, essential hypertension TISSUE SUBMITTED: Esophageal stricture biopsy MICROSCOPIC DIAGNOSIS Esophageal stricture, biopsy: Fragments of gastroesophageal mucosa with focal intestinal metaplasia (goblet cell metaplasia), consistent with Bales's esophagus. Chronic inflammation. Negative for dysplasia. See comment. 04/13/2024 COMMENT Alcian blue/PAS stain with matched control is used in the evaluation of the specimen. Immunohistochemistry ([id number]) for P53 and Ki-67 will be performed and results will be reported separately. MICROSCOPIC DESCRIPTION Slides are reviewed. GROSS DESCRIPTION Received in fixative is one container labeled with the patient's name and designated Esophageal stricture biopsy. The specimen consists of multiple irregular fragments of gamboa soft tissue that in aggregate measure 2.0 x 0.5 x 0.1 cm. The specimen is totally submitted in one cassette. SJ.mr 04/12/2024 TC:5 CPT:62408,50404
--- NOTE | 2024-04-11 | IMM_PTH ---
PATIENT: FEI ROGERS LOC: MS3 U#:[id number] AGE/SX: 88/M [place] [facility] [place]/10/[address]: Dr. Tanvir Nina MD : 1935 BED: 1 DIS: 04/11/2024 SPEC #: [id number] RECD: 04/13/24 10:56 STATUS: NOHEMY REQ #: [id number] JANIE: 04/11/24 00:[address]: Patrick Carlin DEPT: IMMUNOHISTOCHEMISTRY RECD BY: Wilber Hong ENTERED: 04/13/24 10:56 SP TYPE: IMMUNO OTHR DR: DO Dr. Gladis Goode, DO Dr. Tanvir Nina MD Tissues: Esophagus, NOS Procedures: P53 (initial) KI-67 (add) PHYSICIAN & INSTITUTION [place] [address] SPECIMEN INFORMATION: Tissue Source: Esophageal stricture biopsy Clinical Info: Esophageal foreign body, esophageal stricture, dysphagia, GERD, Bales's esophagus, essential hypertension Specimen Number: [id number] CPT code: 03699,31079 METHODOLOGY: Deparaffinized sections of prefer/formalin-fixed tissue or PAP/DQ stained slides are incubated with monoclonal/polyclonal antibodies/oligonucleotide probes. Localization is made via biotin free immunoperoxidase method. Appropriate controls are performed and reacted as expected. Results on target cell population are indicated in the following table: RESULTS: ANTIBODY / CLONE RESULT P53 (DO-7) negative (null pattern) Ki-67 (30-9) positive, very low These tests were developed and their performance characteristics determined by [facility]. They may not have been cleared or approved by the U.S. Food and Drug Administration. The FDA has determined that such clearance or approval is not necessary. The above immunohistochemical/dualISH markers are ordered and reviewed by the Pathologist. INTERPRETATION: Esophageal stricture, biopsy: Negative for dysplasia. 04/13/2024
--- NOTE | 2024-04-11 05:00 | EKG12_ITS ---
Test Reason : PRE-OP Blood Pressure : / mmHG Vent. Rate : 083 BPM Atrial Rate : 083 BPM P-R Int : 168 ms QRS Dur : 148 ms QT Int : 434 ms P-R-T Axes : 072 044 112 degrees QTc Int : 509 ms Sinus rhythm with Premature atrial complexes Left bundle branch block Abnormal ECG When compared with ECG of 10-NOV-2020 14:31, Premature ventricular complexes are no longer Present Premature atrial complexes are now Present Confirmed by Justo Sahu ([id number]), general expeditor ELIUD MARINELLI ([id number]) on 04/12/2024 5:27:25 AM Referred By: MITCHELL Confirmed By:Justo Sahu
[2024-04-11 05:59] LABS: Absolute Neutrophil Count 5.8 X10^3/uL (2.0-7.7); Basophil# 0.04 X10^3/uL; Basophil% 0.5 % (0-1); Eosinophil# 0.12 X10^3/uL; Eosinophils% 1.5 % (0-5); Hematocrit 37.7 % (40-54); Hemoglobin 12.2 g/dL (13.0-16.5); Lymphocyte % 14.5 % (19-41); Mean Corp Hgb Conc 32.4 g/dL (32-36); Mean Corpuscular Hgb 30.2 pg (27.0-32.0); Mean Corpuscular Volume 93.3 fL (80-94); Mean Platelet Vol. 10.2 fl (6.2-12.0); Monocyte# 1.06 X10^3/uL; Monocyte% 12.8 % (0-10); NRBC Flagged by Analyzer 0 % (0-5); Neutrophil # 5.82 X10^3/uL (2.7-7.7); Neutrophil % 70.5 % (47-70); Platelet Count 252 K/mm3 (150-450); RBC Distribution Width CV 12.9 % (11.6-14.6); RBC Distribution Width SD 43.8 fl (35.1-43.9); Red Blood Count 4.04 M/mm3 (4.6-6.2); White Blood Count 8.3 K/mm3 (4.4-11.0)
[2024-04-11 06:43] LABS: ALB/GLOB Ratio 0.9 RATIO (0.9-2.4); AST(SGOT) 16 U/L (15-37); Alanine Aminotransfer ALT/SGPT 26 U/L (16-61); Albumin, Serum 3.3 g/dL (3.2-5.0); Alkaline Phosphatase 77 U/L (45-117); Anion Gap 6 (5-15); BUN 39 mg/dL (7-18); BUN/Creat Ratio 19.2 RATIO (10-20); Calcium,Total 9.2 mg/dL (8.5-10.1); Chloride 105 mmol/L (98-107); Creatinine, Serum 2.03 mg/dL (0.70-1.30); EST Glomerular Filtration Rate 33 mL/min (>60); Est Glom Filt Rate - Afr Amer 40 mL/min (>60); Estimated Creatinine Clearance 20.97 ml/min; Globulin 3.8 g/dL (2.2-4.2); Glucose 108 mg/dL (74-106); Potassium 3.3 mmol/L (3.5-5.1); Protein, Total 7.1 g/dL (6.4-8.2); Sodium Level 139 mmol/L (136-145)
[2024-04-11] MEDS: Pantoprazole Sodium 40 MG in 0.9% Normal Saline (100mL MB+) 100 ML 330 MG IV (08:49)
[2024-04-11] MEDS: Lactated Ringers 1,000 ML 15 ML IV (12:58)
--- NOTE | 2024-04-11 13:14 | PCM.PRE.AN2 ---
ASA Classification* ASA Classification ASA Classification: 3 Assessment & Plan Anesthesia* Anesthesia Assessment Anesthesia Assessment: Discussed sedation and/or anesthesia options, risks, benefits, and alternatives with patient/parents/legal guardian/POA. Questions invited. The patient/parents/legal guardian/POA seems to understand and agrees to proceed with anesthesia plan. Reviewed the physical assessment, medical history, allergy history and patient home medications list prior to surgery/procedure/anesthetic and documented any changes. Performed airway and anesthesia risk assessments. Anesthesia Type Anesthesia Type: MAC History Source History Obtained from:: Patient and Chart Anesthesia Focused Assessment* Temperature: 97.7 F Pulse Rate: 72 Blood Pressure: 145/47 Respiratory Rate: 16 Pulse Ox: 94 Oxygen Delivery Method: Room Air Airway Assessment Mouth opens: >3 cm Mallampati Score: II Teeth Condition: Full (Full upper dentures are out.), Missing and Partial (Partial lower dentures are out. Rest are tight.) Neck Range of motion (ROM): Full ROM Focused Labs Anesthesia Preop lab: CBC WBC 8.3 K/mm3 (4.4-11.0) 04/11/24 05:36 RBC 4.04 M/mm3 (4.6-6.2) L 04/11/24 05:36 Hgb 12.2 g/dL (13.0-16.5) L 04/11/24 05:36 Hct 37.7 % (40-54) L 04/11/24 05:36 Plt Count 252 K/mm3 (150-450) 04/11/24 05:36 CHEMISTRY Potassium 3.3 mmol/L (3.5-5.1) L 04/11/24 05:36 Sodium 139 mmol/L (136-145) 04/11/24 05:36 Magnesium 2.0 mg/dL (1.6-2.6) 04/11/24 05:36 Phosphorus 3.0 mg/dL (2.5-4.9) 04/11/24 05:36 BUN 39 mg/dL (7-18) H 04/11/24 05:36 Creatinine 2.03 mg/dL (0.70-1.30) H 04/11/24 05:36 Glucose 108 mg/dL (74-106) H 04/11/24 05:36 TSH 2.480 uIU/mL (0.358-3.740) 04/11/24 05:36 COAG Pre-Assessment Diagnosis/Proposed Procedure Planned Operative Procedure(s): Esophagogastroduodenoscopy. Esophageal stent. 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 When Was Last Pacemaker Check QUESTION #4 FULL TEXT: You/Your Family Experience fever (hyperthermia) with Anesthesia Last Oral Intake Last Oral intake: Last Oral Intake NPO since 00:00 04/11/24 10:34 Meds taken in AM with sips of No 04/11/24 10:34 water? Meds patient instructed to take am of surgery PONV PONV - printed circuit board layout designer: PONV - printed circuit board layout designer Female HX of Motion Sickness HX of N/V After Surgery Non-Smoker Duration of Surgery greater than 60 minutes Number of Risk Factors PONV Score Height & Weight Height & Weight: Anesthesia: Height & Weight Height 5 ft 5 in 04/11/24 10:34 Weight: 57.83 kg 04/11/24 10:34 Body Mass Index (BMI) 21.2 04/11/24 10:34 Respiratory Assessment Respiratory Assessment - printed circuit board layout designer: Respiratory Tract Infection Hx - printed circuit board layout designer Hx Respiratory Tract Infection No 04/11/24 01:05 STOP Sleep Apnea STOP Sleep Apnea - printed circuit board layout designer: STOP Sleep Apnea - printed circuit board layout designer Hx Hypertension Yes 04/11/24 11:55 Hx Sleep Apnea No 04/11/24 00:51 CPAP BIPAP Do you snore loudly (louder No 04/11/24 00:51 than talking or can be heard Do you often feel tired/ No 04/11/24 00:51 fatigued/ sleepy during daytime? Has anyone observed you stop No 04/11/24 00:51 breathing during sleep? STOP Results Negative 04/11/24 00:51 QUESTION #5 FULL TEXT : Do you snore loudly (louder than talking or can be heard through closed doors)? Tobacco Use History Tobacco Use History - printed circuit board layout designer: Tobacco Use History - printed circuit board layout designer Tobacco Use Non-smoker 04/17/21 08:27 Smoking Status Former smoker 04/11/24 00:51 Hx Tobacco Use No 04/11/24 00:51 Years Smoking Packs Smoked per Day Smoking Cessation Date was No - quit smoking greater 04/11/24 00:51 within the last 15 years than 15 years ago Hx Smoking Cessation Date 07/19/1955 04/11/24 00:51 Hx Smoking Cessation No 04/11/24 00:51 Counseling Hematologic Medial History Hematologic Hx - printed circuit board layout designer: Hematologic Medical Hx - documentation coordinator Hx of Blood Transfusion No 04/11/24 00:51 Hx of Transfusion in last 3 No 04/11/24 00:51 Months Date of Last Transfusion (if within last 3 months) Ever experience any problems No 04/11/24 00:51 with transfusion(s)? Specify any problems Hx of Preganancy in last 3 N/A 04/11/24 00:51 Months Nurse Filling Out Transfusion MSTEFANIC 04/11/24 00:51 & Questions: Date: 04/11/24 04/11/24 00:51 Time: 00:53 04/11/24 00:51 Patient unable to answer at this time (ie. confused, unrespo /Reproduction History /Reproductive History - printed circuit board layout designer: /Reproductive Hx- printed circuit board layout designer Hx Now Gestational Age (in weeks): EDC: Hx Hx Para Hx Section SAB No 04/05/24 10:59 Active Medications Active Medications: Current Medications Generic Name Dose Route Start Last Admin Trade Name Freq PRN Reason Stop Dose Admin Albuterol Sulfate 2.5 mg 04/11/24 00:45 Albuterol 2.5 Mg/3 Ml Vial.Neb. INHALATION Q2H PRN PRN SOB &/OR WHEEZING Hydralazine HCl 10 mg 04/10/24 22:49 Hydralazine 20 Mg/Ml Vial IV Q6H PRN PRN SBP GREATER THAN 160 Protocol Pantoprazole Sodium 40 mg/ 110 mls @ 330 mls/hr 04/10/24 19:56 04/11/24 09:20 Sodium Chloride IV Infused DAILY HYACINTH Infusion Sodium Chloride 1,000 mls @ 70 mls/hr 04/10/24 19:56 04/11/24 12:37 IV 0 mls/hr .[id number] HYACINTH Infusion Sodium Chloride 250 mls @ 15 mls/hr 04/11/24 00:56 IV .[id number] PRN Additional IVPB Infusion Sodium Chloride 250 mls @ 15 mls/hr 04/11/24 00:56 IV .[id number] PRN Saline Flush Lactated Ringer's 1,000 mls @ 15 mls/hr 04/11/24 13:00 04/11/24 12:58 IV 15 mls/hr .Q48H HYACINTH Administration Morphine Sulfate 2 mg 04/11/24 00:45 Morphine 2 Mg/Ml Syringe IV Q4 PRN Pain Score 6-10 Ondansetron HCl 4 mg 04/11/24 00:45 Ondansetron 4 Mg/2 Ml Vial IV Q4H PRN PRN NAUSEA/VOMITING Promethazine HCl 12.5 mg 04/11/24 00:45 Promethazine 25 Mg/Ml Syringe IM Q4H PRN PRN BREAKTHROUGH NAUSEA Sodium Chloride 10 - 40 ml 04/11/24 00:56 0.9% Saline Lock 10 Ml Syringe IV UD PRN SALINE FLUSH PFSH Medical History (Updated 04/11/24 @ 01:04 by Zoie Burk) Hiatal hernia Kidney disease TIA (transient ischemic attack) Hypertension Wears hearing aid Wears glasses Wears partial dentures Wears dentures History of renal disease High cholesterol Easy bruising Injury of head and neck Difficulty swallowing History of hiatal hernia Gastric reflux Former smoker Leg cramps History of pain when walking History of edema History of echocardiogram Cardiology follow-up encounter Syncope (10/2020) History of CVA (cerebrovascular accident) Traumatic subarachnoid hemorrhage (10/2020) Hyperlipidemia Claudication Barretts esophagus TIA (transient ischemic attack) Atherosclerotic heart disease of [place] coronary artery without angina pectoris Left bundle branch block Carotid bruit Left carotid artery stenosis Angiopathy, peripheral Home Medications ?Medication ?Instructions ?Recorded ?Last Taken ?Type aspirin 81 mg tablet,delayed 81 mg PO QDAY 11/04/17 02/26/24 History release (Adult Low Dose Aspirin) cholecalciferol (vitamin D3) 25 1,000 unit PO QDAY 03/11/23 02/26/24 History mcg (1,000 unit) capsule omeprazole 20 mg capsule,delayed 20 mg PO BID #180 caps 02/11/24 02/28/24 Rx release amlodipine 10 mg tablet 10 mg PO DAILY #90 TABLETS 03/21/24 Unknown Rx hydrochlorothiazide 25 mg tablet 25 mg PO DAILY #90 TABLETS 03/21/24 Unknown Rx metoprolol tartrate 25 mg tablet 25 mg PO BID #180 TABLETS 03/21/24 Unknown Rx atorvastatin 20 mg tablet 20 mg PO QPM 03/27/24 Unknown History Allergy/AdvReac Type Severity Reaction Status Date / Time Iodinated Contrast Media AdvReac Severe CKD Verified 04/11/24 12:57 (Iodinated Contrast- Oral and IV Dye) Family History Mother CAD (coronary artery disease) Diabetes Myocardial infarction Brother CAD (coronary artery disease) Hx of CABG Brother CAD (coronary artery disease) Surgical History History of esophagogastroduodenoscopy (EGD) Hx of right cataract extraction Hx of left cataract extraction Hx of colonoscopy Hx of foot surgery History of left-sided carotid endarterectomy (2000) 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
--- NOTE | 2024-04-11 13:18 | EX.PCM.CON.G ---
HPI Consult Data Date of Consult: 04/11/24 HPI Narrative Reason for Consultation: Esophageal dysphagia HPI Narrative: FEI ROGERS, is a 88 M who presents with the inability to swallow. He has a past medical history of CAD; s/p CABG x 5 (2007), history of Left carotid artery stenosis; s/p CEA x 2 (2000), LBBB, history of traumatic SDH (2020), history of CVA (2020), history of syncope (2020), history of peripheral angiopathy with claudication, CKD; stage III (with baseline creatinine of ~1.8 mg/dL), history of vitamin D deficiency, listed allergy to IV contrast dye and GERD; with history of Bales's esophagus, dysphagia and subsequent esophageal stenosis; s/p dilatation procedure by myself a few months ago with EGD done on 02/29/2024 with a prescheduled esophageal stent planned for the AM. He presents to [facility] ER complaining he feels like a foreign body is stuck in his esophagus. Mr. Rogers reports his symptoms began approximately two hours prior to arrival when he was eating his last meal of chicken and mashed potatoes ~5:30 PM when he felt like something got stuck in his esophagus and would not pass. He had been doing well until tis evening and he states he was told he could eat whatever he wanted as long as it was in small bites. He states he has been treated in the past with IV Glucagon to enhance smooth muscle relaxation ~3-4 times in the past with good results. He was given Coca Cola in the triage area, but vomited it back up without resolution of the sensation of obstruction. He admits to having nausea and bilious emesis ~6-8 times this evening but without resolution of his symptoms of a foreign body sensation. There was no associated fever, chills, chest pain, abdominal pain, SOB or headache. In the ER he was diagnosed with a suspected foreign body stuck in his esophagus in the setting of a known history of esophageal stenosis with dysphagia in the setting of chronic GERD; with Bales's esophagus complicated by intractable nausea and vomiting [facility] Medical History (Updated 04/11/24 @ 01:04 by Zoie Burk) Hiatal hernia Kidney disease TIA (transient ischemic attack) Hypertension Wears hearing aid Wears glasses Wears partial dentures Wears dentures History of renal disease High cholesterol Easy bruising Injury of head and neck Difficulty swallowing History of hiatal hernia Gastric reflux Former smoker Leg cramps History of pain when walking History of edema History of echocardiogram Cardiology follow-up encounter Syncope (10/2020) History of CVA (cerebrovascular accident) Traumatic subarachnoid hemorrhage (10/2020) Hyperlipidemia Claudication Barretts esophagus TIA (transient ischemic attack) Atherosclerotic heart disease of [place] coronary artery without angina pectoris Left bundle branch block Carotid bruit Left carotid artery stenosis Angiopathy, peripheral Home Medications ?Medication ?Instructions ?Recorded ?Last Taken ?Type aspirin 81 mg tablet,delayed 81 mg PO QDAY 11/04/17 02/26/24 History release (Adult Low Dose Aspirin) cholecalciferol (vitamin D3) 25 1,000 unit PO QDAY 03/11/23 02/26/24 History mcg (1,000 unit) capsule omeprazole 20 mg capsule,delayed 20 mg PO BID #180 caps 02/11/24 02/28/24 Rx release amlodipine 10 mg tablet 10 mg PO DAILY #90 TABLETS 03/21/24 Unknown Rx hydrochlorothiazide 25 mg tablet 25 mg PO DAILY #90 TABLETS 03/21/24 Unknown Rx metoprolol tartrate 25 mg tablet 25 mg PO BID #180 TABLETS 03/21/24 Unknown Rx atorvastatin 20 mg tablet 20 mg PO QPM 03/27/24 Unknown History Allergy/AdvReac Type Severity Reaction Status Date / Time Iodinated Contrast Media AdvReac Severe CKD Verified 04/11/24 12:57 (Iodinated Contrast- Oral and IV Dye) Family History Mother CAD (coronary artery disease) Diabetes Myocardial infarction Brother CAD (coronary artery disease) Hx of CABG Brother CAD (coronary artery disease) Surgical History History of esophagogastroduodenoscopy (EGD) Hx of right cataract extraction Hx of left cataract extraction Hx of colonoscopy Hx of foot surgery History of left-sided carotid endarterectomy (2000) 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) Social History Smoking Status: Former smoker alcohol intake: current details: Rare substance use type: does not use caffeine: Yes Type: coffee Number of servings: 3 ROS ROS Narrative Review of Systems: Constitutional: Patient denies fever or chills. Eyes: Patient denies changes in vision or discharge from eyes. ENT: Patient admits to foreign body sensation in esophagus but he denies denies runny nose or ear pain. Resp: Patient denies SOB or cough. CV: Patient denies chest pain, palpitations or hear racing. GI: Patient admits to difficulty swallowing with foreign body sensation in esophagus complicated by nausea and bilious emesis ~6-8 times as per HPI. : Patient denies dysuria or hematuria. MSK: Patient denies arthralgias or myalgias. Skin: Patient denies rash, abscess, wound or jaundice. Psych: Patient denies symptoms of uncontrolled depression or anxiety. Neuro: Patient denies headache, paresthesias or focal neurologic deficits. Allergy: Patient denies lip swelling, tongue swelling or urticaria. Hematology: Patient denies easy bleeding or easy bruisability. Endocrinology: Patient denies polyuria, polydipsia or polyphagia. 14 point ROS otherwise negative except for positives noted above in HPI. Physical Exam Const alert, oriented x3, average body habitus and healthy appearing General Appearance: cooperative HEENT normocephalic, head/scalp atraumatic, hearing grossly normal bilaterally and moist oral mucous membranes Eyes PERRL and EOMs intact bilaterally Neck no lymphadenopathy and supple Resp normal respiratory effort, no retractions, no use of accessory muscles and clear to auscultation bilaterally Cardio regular rate and regular rhythm GI normal to inspection, nondistended, normoactive bowel sounds, soft to palpation, non-tender and non-distended Extremity normal to inspection, full ROM and no clubbing, cyanosis or edema Skin Skin Narrative: Patient has no evidence of wounds, rash or jaundice. Neuro oriented x3, CN's II-XII intact bilaterally, moves all extremities and no focal motor deficits Sensorium / Orientation: awake, alert, oriented to person, oriented to place and oriented to time Speech: speech normal Psych Mood & Affect: anxious Lab / Micro Data 04/11/24 05:36 04/11/24 05:36 Labs: Laboratory Results - last 24 hr 04/10/24 19:27: WBC 8.9, RBC 4.23 L, Hgb 13.0, Hct 39.2 L, MCV 92.7, MCH 30.7, MCHC 33.2, RDW Std Deviation 43.6, RDW Coeff of [place] 12.9, Plt Count 277, MPV 10.3, Immature Gran % (Auto) 0.400, Neut % (Auto) 73.1 H, Lymph % (Auto) 11.9 L, [place] % (Auto) 13.0 H, Eos % (Auto) 1.2, Baso % (Auto) 0.4, Absolute Neuts (auto) 6.5, Absolute Lymphs (auto) 1.06, Nucleated RBC % 0, Sodium 135 L, Potassium 3.8, Chloride 99, Carbon Dioxide 29.0, Anion Gap 7, BUN 49 H, Creatinine 2.50 H, Estim Creat Clear Calc 16.96, Est GFR (MDRD) Af Amer 32 L, Est GFR (MDRD) Non-Af 26 L, BUN/Creatinine Ratio 19.6, Glucose 131 H, Calcium 9.4 04/11/24 05:36: WBC 8.3, RBC 4.04 L, Hgb 12.2 L, Hct 37.7 L, MCV 93.3, MCH 30.2, MCHC 32.4, RDW Std Deviation 43.8, RDW Coeff of [place] 12.9, Plt Count 252, MPV 10.2, Immature Gran % (Auto) 0.200, Neut % (Auto) 70.5 H, Lymph % (Auto) 14.5 L, [place] % (Auto) 12.8 H, Eos % (Auto) 1.5, Baso % (Auto) 0.5, Absolute Neuts (auto) 5.8, Absolute Lymphs (auto) 1.20, Nucleated RBC % 0, Sodium 139, Potassium 3.3 L, Chloride 105, Carbon Dioxide 28.0, Anion Gap 6, BUN 39 H, Creatinine 2.03 H, Estim Creat Clear Calc 20.97, Est GFR (MDRD) Af Amer 40 L, Est GFR (MDRD) Non-Af 33 L, BUN/Creatinine Ratio 19.2, Glucose 108 H, Calcium 9.2, Phosphorus 3.0, Magnesium 2.0, Total Bilirubin 0.50, AST 16, ALT 26, Alkaline Phosphatase 77, Total Protein 7.1, Albumin 3.3, Globulin 3.8, Albumin/Globulin Ratio 0.9, TSH 2.480 Assessment & Plan Assessment/Plan (1) Esophageal foreign body: QUALIFIERS: Encounter type: initial encounter Qualified Code(s): T18.108A - Unspecified foreign body in esophagus causing other injury, initial encounter (2) Esophageal stricture: (3) Dysphagia: QUALIFIERS: Dysphagia type: unspecified Qualified Code(s): R13.10 - Dysphagia, unspecified (4) Intractable nausea and vomiting: (5) GERD (gastroesophageal reflux disease): QUALIFIERS: Esophagitis presence: esophagitis presence not specified Qualified Code(s): K21.9 - Gastro-esophageal reflux disease without esophagitis (6) Barretts esophagus: QUALIFIERS: Bales's esophagus type: with dysplasia of unspecified degree Qualified Code(s): K22.719 - Bales's esophagus with dysplasia, unspecified (7) Essential hypertension: PLAN: Plan Foreign Body in Esophagus with intractable nausea and vomiting - Admit to general medical floor under observation status. Keep strict NPO. Patient treated empirically with IV Glucagon to enhance smooth muscle relaxation in ER. Start Protonix 40 mg IV daily plus give Zofran IV prn for nausea and vomiting. GERD; with history of Bales's esophagus, dysphagia and subsequent esophageal stenosis; s/p dilatation procedure by Dr. Carlin a few months ago with EGD done on 02/29/2024 with a prescheduled esophageal stent planned for the AM complicating #1 - Noted. He will undergo EGD with dilation and stent placement. He was explained alternatives, risk, benefits include not withstanding bleeding, infection, sepsis, perforation, need for emergent urgent . He will have an ASA of 3. Charges/Coding Visit Charges Inpatient E&M: 73426 Init Hosp L3
--- NOTE | 2024-04-11 13:40 | RAD_ITS ---
41 seconds of fluoroscopy the chest were used by the operating room during endoscopy and esophageal stent placement. Electronically Signed: Francois Ty MD at 14:18 EDT , RAD/Fluoroscopy 1 Hr or Less IMPRESSION: undefined
--- NOTE | 2024-04-11 14:11 | PCM.POST.ANE ---
Anesthesia: Postop Eval I Current Vital Signs Temperature: 97.3 F Pulse Rate: 73 Blood Pressure: 142/52 Respiratory Rate: 16 Pulse Ox: 99 Oxygen Delivery Method: Room Air Assessment Airway patent: Yes Spontaneous unlabored respirations: Yes Mental status: Asleep nausea: No Vomiting: No Anesthesia Complication: No Fluid Hydration Crystalloid volume administer (ml): 600 Total IV fluid infused: 600 Progress Note Anesthesia document: Postop Eval 1 completed: Yes
--- NOTE | 2024-04-11 14:13 | OP.EGD_ITS ---
Patient Name: Greg Bowman Procedure Date: 04/11/2024 1:14 PM Date of : 1935 Age: 88 Procedure: Upper GI endoscopy Indications: Dysphagia Providers: Patrick Carlin DO Medicines: Monitored Anesthesia Care Patient Profile: This is an 88 year old male. Refer to note in patient chart for documentation of history and physical. Patient has symptoms of dysphagia with solids. The symptoms first began 01,. Complications: No immediate complications. Procedure: Pre-Anesthesia Assessment: - Prior to the procedure, a History and Physical was performed, and patient medications and allergies were reviewed. The patient is competent. The risks and benefits of the procedure and the sedation options and risks were discussed with the patient. All questions were answered and informed consent was obtained. Patient identification and proposed procedure were verified by the physician in the pre-procedure area. Mental Status Examination: alert and oriented. Prophylactic Antibiotics: The patient does not require prophylactic antibiotics. Prior Anticoagulants: The patient has taken no anticoagulant or antiplatelet agents. ASA Grade Assessment: II - A patient with mild systemic disease. After reviewing the risks and benefits, the patient was deemed in satisfactory condition to undergo the procedure. The anesthesia plan was to use monitored anesthesia care (MAC). Immediately prior to administration of medications, the patient was re-assessed for adequacy to receive sedatives. The heart rate, respiratory rate, oxygen saturations, blood pressure, adequacy of pulmonary ventilation, and response to care were monitored throughout the procedure. The physical status of the patient was re-assessed after the procedure. After obtaining informed consent, the endoscope was passed under direct vision. Throughout the procedure, the patient's blood pressure, pulse, and oxygen saturations were monitored continuously. The Endoscope was introduced through the mouth, and advanced to the second part of duodenum. The upper GI endoscopy was accomplished without difficulty. The patient tolerated the procedure well. Scope In: 1:38:06 PM Scope Out: 1:58:37 PM Total Procedure Duration Time 0 hours 20 minutes 31 seconds Findings: One benign-appearing, intrinsic severe stenosis was found 21 to 30 cm from the incisors. This stenosis measured 3 mm (inner diameter) x 5 cm (in length). The stenosis was not traversed. Biopsies were taken with a cold forceps for histology. Verification of patient identification for the specimen was done. Estimated blood loss was minimal. There were esophageal mucosal changes secondary to established long-segment Bales's disease present in the middle third of the esophagus and in the lower third of the esophagus. The maximum longitudinal extent of these mucosal changes was 10 cm in length. A medium-sized hiatal hernia was present. The exam of the stomach was otherwise normal. No gross lesions were noted in the duodenal bulb. One benign-appearing, intrinsic severe (stenosis; an endoscope cannot pass) stenosis was found 30 to 35 cm from the incisors. This stenosis measured 5 cm (in length). The stenosis was not traversed. This was stented with an 18 mm x 12.3 cm WallFlex covered stent under fluoroscopic guidance, proximal margin at 30 cm and distal margin at 39 cm from the incisors. Impression: - Benign-appearing esophageal stenosis. Biopsied. 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 - Medium-sized hiatal hernia. - No gross lesions in the duodenal bulb. Recommendation: - Return patient to [facility] for [facility] care. - Full liquid diet today. - Continue present medications. - Await pathology results. Procedure Code(s): --- Professional --- 78979, Esophagogastroduodenoscopy, flexible, transoral; with placement of endoscopic stent (includes pre- and post-dilation and guide wire passage, when performed) 38543, 59,51, Esophagogastroduodenoscopy, flexible, transoral; with biopsy, single or multiple 25509, 26, Intraluminal dilation of strictures and/or obstructions (eg, esophagus), radiological supervision and interpretation CPT copyright 2021 [employer]. All rights reserved. The codes documented in this report are preliminary and upon barrel header review may be revised to meet current compliance requirements. Patrick Carlin DO 04/11/2024 2:12:52 PM This report has been signed electronically. Number of Addenda: 0 Note Initiated On: 04/11/2024 1:14 PM
--- NOTE | 2024-04-11 14:13 | OP.CCLET_ITS ---
04/11/2024 Gladis Castro [address] [place] [address] Re : Upper GI endoscopy procedure for Greg Bowman Dear Dr. Castro This procedure was performed on Thursday, April 11, 2024. My impressions and recommendations are as follows: Impressions : - Benign-appearing esophageal stenosis. Biopsied. 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 - Medium-sized hiatal hernia. - No gross lesions in the duodenal bulb. Recommendations : - Return patient to hospital [facility] for ongoing care. - Full liquid diet today. - Continue present medications. - Await pathology results. My findings are described in the full procedure note, which is enclosed. If I can be of further assistance, please feel free to contact me at . Sincerely, Patrick Carlin, 04/11/2024 2:12:52 PM This report has been signed electronically.
[2024-04-11] MEDS: 0.9% Normal Saline (1000mL) 1,000 ML 70 ML IV (14:42)
--- NOTE | 2024-04-11 14:45 | PCM.POSTANE2 ---
Anesthesia Postop Eval I Sum Postop Eval Completion status Anesthesia document: Postop Eval 1 completed: Yes Anesthesia Postop Eval I Summary Anesthesia Postop Eval I Summary: Anesthesia Postop Eval I: Assessment Summary Airway patent Yes 04/11/24 14:12 [email or web address] Spontaneous unlabored Yes 04/11/24 14:12 [email or web address] respirations Mental status Asleep 04/11/24 14:12 [email or web address] nausea No 04/11/24 14:12 [email or web address] Vomiting No 04/11/24 14:12 [email or web address] Anesthesia Postop Eval I: Fluid Summary Crystalloid volume administer 600 04/11/24 14:12 [email or web address] (ml) Colloids volume administered ( ml) Blood Product volume administered (ml) Total IV fluid infused 600 04/11/24 14:12 [email or web address] Anesthesia Postop Eval I: Summary Notes Anesthesia Complication No 04/11/24 14:12 [email or web address] Anesthesia Complication Comment: Post-operative progress note Anesthesia: Postop Eval II Evaluation Mental status: Awake and Calm Pain Level: 0 nausea: No Vomiting: No Complications Anesthesia Complication: No
--- NOTE | 2024-04-11 15:07 | DCINST_ITS ---
Discharge Instructions Diet Discharge Diet: Low fat / Low cholesterol Activity Discharge Activity: Return to Normal Activity Dressing / Incision Call your doctor if you observe: Fever of 101 or Higher, Shortness of breath, Dizziness, Fainting spells, Swelling in the ankles, Chest pain and Increased palpitations (irregular heartbeat) Follow Up Care Test Results: Test results from this visit will be discussed in further detail at your follow- up appointment, if applicable. Discharge Plan Admission Admit Date/Time: 04/10/24 19:51 Attending Provider: Tanvir Nina Primary Care Provider: Gladis Castro Consulting Providers: Kalpesh Suggs; Patrick Carlin Discharge Orders/Prescriptions Prescriptions: Continued cholecalciferol (vitamin D3) 25 mcg (1,000 unit) capsule 1,000 unit PO QDAY aspirin [Adult Low Dose Aspirin] 81 mg tablet,delayed release (DR/EC) 81 mg PO QDAY atorvastatin 20 mg tablet 20 mg PO QPM omeprazole 20 mg capsule,delayed release(DR/EC) 20 mg PO BID Qty: 180 1RF hydrochlorothiazide 25 mg tablet 25 mg PO DAILY Qty: 90 3RF amlodipine 10 mg tablet 10 mg PO DAILY Qty: 90 3RF metoprolol tartrate 25 mg tablet 25 mg PO BID Qty: 180 3RF Referrals / Follow Up: Gladis Castro DO [Primary Care Provider] - Within 1 Week Patrick Carlin DO [Med Staff - Active Staff] - Within 2 Weeks Disposition Disposition (needs filled in before D/C Order can be placed): Home, Self Care
--- NOTE | 2024-04-11 15:23 | DS.PCM_ITS ---
Providers Date of Admission: 04/10/24 Primary Care Physician: Dr. Gladis Castro, DO Consultations 04/11/24 00:45 Consult: Gastroenterology Routine Consulting Provider: Patrick Carlin Reason for Consult: Foreign Body in Esophagus. EMERGENT Consult: No MD Notified: Yes Date Notified: 04/10/24 Time Notified: 19:53 Method of Notification: per ER doc Reason For Visit: FOREIGN BODY IN ESOPHAGUS WITH INTRACTABLE Diagnosis Discharge Diagnosis (1) Esophageal foreign body: Status: Acute Code(s): T18.108A - Unspecified foreign body in esophagus causing other injury, initial encounter Qualifiers: Encounter type: initial encounter Qualified Code(s): T18.108A - Unspecified foreign body in esophagus causing other injury, initial encounter (2) Esophageal stricture: Status: Acute Code(s): K22.2 - Esophageal obstruction (3) Dysphagia: Status: Acute Code(s): R13.10 - Dysphagia, unspecified Qualifiers: Dysphagia type: unspecified Qualified Code(s): R13.10 - Dysphagia, unspecified (4) Intractable nausea and vomiting: Status: Acute Code(s): R11.2 - Nausea with vomiting, unspecified (5) GERD (gastroesophageal reflux disease): Status: Acute Code(s): K21.9 - Gastro-esophageal reflux disease without esophagitis Qualifiers: Esophagitis presence: esophagitis presence not specified Qualified Code(s): K21.9 - Gastro-esophageal reflux disease without esophagitis (6) Barretts esophagus: Status: Acute Code(s): K22.70 - Bales's esophagus without dysplasia Qualifiers: Bales's esophagus type: with dysplasia of unspecified degree Q ualified Code(s): K22.719 - Bales's esophagus with dysplasia, unspecified (7) Essential hypertension: Status: Acute Code(s): I10 - Essential (primary) hypertension Medications at Discharge Home Medications aspirin 81 mg tablet,delayed release (Adult Low Dose Aspirin) 81 mg PO QDAY 11/04/17 cholecalciferol (vitamin D3) 25 mcg (1,000 unit) capsule 1,000 unit PO QDAY 03/11/23 omeprazole 20 mg capsule,delayed release 20 mg PO BID #180 caps 02/11/24 amlodipine 10 mg tablet 10 mg PO DAILY #90 TABLETS 09/03/24 hydrochlorothiazide 25 mg tablet 25 mg PO DAILY #90 TABLETS 03/21/24 metoprolol tartrate 25 mg tablet 25 mg PO BID #180 TABLETS 03/21/24 atorvastatin 20 mg tablet 20 mg PO QPM 03/27/24 Hospital Course Operations None Procedures EGD Summary of Care Provided Minutes Spent on Discharge: 34 Hospital Course: Per HPI: FEI ROGERS, is a 88 M with a past medical history of essential hypertension, hyperlipidemia, remote history of tobacco abuse, CAD; s/p CABG x 5 (2007), history of Left carotid artery stenosis; s/p CEA x 2 (2000), LBBB, history of traumatic SDH (2020), history of CVA (2020), history of syncope (2020), history of peripheral angiopathy with claudication, CKD; stage III (with baseline creatinine of ~1.8 mg/dL), history of vitamin D deficiency, listed allergy to IV contrast dye and GERD; with history of Bales's esophagus, dysphagia and subsequent esophageal stenosis; s/p dilatation procedure by Dr. Carlin a few months ago with EGD done on 02/29/2024 with a prescheduled esophageal stent planned for the AM who presents to [facility] ER complaining he feels like a foreign body is stuck in his esophagus. Mr. Rogers reports his symptoms began approximately two hours prior to arrival when he was eating his last meal of chicken and mashed potatoes ~5:30 PM when he felt like something got stuck in his esophagus and would not pass. He had been doing well until tis evening and he states he was told he could eat whatever he wanted as long as it was in small bites. He states he has been treated in the past with IV Glucagon to enhance smooth muscle relaxation ~3-4 times in the past with good results. He was given Coca Cola in the triage area, but vomited it back up without resolution of the sensation of obstruction. He admits to having nausea and bilious emesis ~6-8 times this evening but without resolution of his symptoms of a foreign body sensation. There was no associated fever, chills, chest pain, abdominal pain, SOB or headache. In the ER he was diagnosed with a suspected foreign body stuck in his esophagus in the setting of a known history of esophageal stenosis with dysphagia in the setting of chronic GERD; with Bales's esophagus complicated by intractable nausea and vomiting and he was then admitted to the general medical floor under observation status for ongoing care for a stay that is expected to be less than 2 midnights. Hospital Course: 1. Esophageal stricture with foreign body sensation?88-year-old male present to the hospital with a history of strictures and felt that he was having a foreign body sensation in his esophagus. He was admitted as he was going to have an outpatient EGD today anyways. During the procedure he was found to not have any obstruction other than the stricture which was treated and stented. He will need to follow-up with gastroenterology in 2 weeks. Discussed with him the plan for discharge today he expressed understanding respect to going home and would like to go home today. Discussed with gastroenterology they did discuss with him safe foods and how to eat. He will need to follow-up in 2 weeks. Of note his creatinine on admission was 2.5 and on the day of discharge improved to 2.03. His baseline renal function is around 1.7-1.8. 2. Essential hypertension, hyperlipidemia, coronary artery disease status post CABG, GERD are all chronic medical conditions which complicate his care. His home medications were continued where appropriate Physical Exam Narrative General: Alert, Oriented x3, Cooperative, No apparent distress HEENT: Atraumatic, PERRLA, EOMI, Normocephalic Oral: Moist Mucosa Neck: Supple, No JVD Lungs: Diminished, Normal air movement, No rhonchi, No wheeze, No rales Cardiovascular: Regular rate, Regular Rhythm, Normal S1, Normal S2, No murmurs Abdomen: Soft, Non Tender, Non-Distended, No Hepato-splenomegaly Extremities: No edema, Capillary Refill Less than 3 Seconds Skin: No rashes, No breakdown Musculoskeletal: No Tenderness to Palpation of Joints or Extremities Neurological: No focal neurological deficits, Motor Exam 5/5 strength throughout, Sensory exam intact to light touch and pain Psych/Mental Status: Normal Affect, Appropriate Weight / BMI Weight Weight: 127 lb 7.893 oz Body Mass Index (BMI) 21.2 ABG / Lab / Microbiology Data 04/11/24 05:36 04/11/24 05:36 Laboratory: Laboratory Results - last 24 hr 04/10/24 19:27: WBC 8.9, RBC 4.23 L, Hgb 13.0, Hct 39.2 L, MCV 92.7, MCH 30.7, MCHC 33.2, RDW Std Deviation 43.6, RDW Coeff of [place] 12.9, Plt Count 277, MPV 10.3, Immature Gran % (Auto) 0.400, Neut % (Auto) 73.1 H, Lymph % (Auto) 11.9 L, Amador % (Auto) 13.0 H, Eos % (Auto) 1.2, Baso % (Auto) 0.4, Absolute Neuts (auto) 6.5, Absolute Lymphs (auto) 1.06, Nucleated RBC % 0, Sodium 135 L, Potassium 3.8, Chloride 99, Carbon Dioxide 29.0, Anion Gap 7, BUN 49 H, Creatinine 2.50 H, Estim Creat Clear Calc 16.96, Est GFR (MDRD) Af Amer 32 L, Est GFR (MDRD) Non-Af 26 L, BUN/Creatinine Ratio 19.6, Glucose 131 H, Calcium 9.4 04/11/24 05:36: WBC 8.3, RBC 4.04 L, Hgb 12.2 L, Hct 37.7 L, MCV 93.3, MCH 30.2, MCHC 32.4, RDW Std Deviation 43.8, RDW Coeff of [place] 12.9, Plt Count 252, MPV 10.2, Immature Gran % (Auto) 0.200, Neut % (Auto) 70.5 H, Lymph % (Auto) 14.5 L, Amador % (Auto) 12.8 H, Eos % (Auto) 1.5, Baso % (Auto) 0.5, Absolute Neuts (auto) 5.8, Absolute Lymphs (auto) 1.20, Nucleated RBC % 0, Sodium 139, Potassium 3.3 L , Chloride 105, Carbon Dioxide 28.0, Anion Gap 6, BUN 39 H, Creatinine 2.03 H, Estim Creat Clear Calc 20.97, Est GFR (MDRD) Af Amer 40 L, Est GFR (MDRD) Non-Af 33 L, BUN/Creatinine Ratio 19.2, Glucose 108 H, Calcium 9.2, Phosphorus 3.0, Magnesium 2.0, Total Bilirubin 0.50, AST 16, ALT 26, Alkaline Phosphatase 77, Total Protein 7.1, Albumin 3.3, Globulin 3.8, Albumin/Globulin Ratio 0.9, TSH 2.480 Radiography Diagnostic Testing: Radiology Impression Fluoroscopy 09/24/24 13:40 IMPRESSION: undefined D/C Instructions Discharge Diet: Low fat / Low cholesterol Call your doctor if you observe: Fever of 101 or Higher, Shortness of breath, Dizziness, Fainting spells, Swelling in the ankles, Chest pain and Increased palpitations (irregular heartbeat) Meaningful Use Info Meaningful Use Meaningful Use Diagnoses (Choose all that apply): None applicable Ischemic Stroke Statin Dosing Therapy Reference: STATIN DOSE THERAPY REFERENCE: * Patients > 75 years receive moderate or high dose statin therapy. * Patients 75 years or YOUNGER should receive HIGH intensity statin dose unless contraindicated. You will be required to document reason for non-treatment if statin daily dose does not meet guidelines. HIGH DOSE STATIN THERAPY DAILY Atorvastatin > than or = to 40 mg Rosuvastatin > than or = to 20 mg Amlodipine + Atorvastatin > than or = to 2.5/40 mg Ezetimibe + Simvastatin 10/80 mg Simvastatin 80mg Discharge Plan Admission Admit Date/Time: 04/10/24 19:51 Attending Provider: Tanvir Nina Primary Care Provider: Gladis Castro Consulting Providers: Kalpesh Suggs; Patrick Carlin Discharge Orders/Prescriptions Prescriptions: Continued cholecalciferol (vitamin D3) 25 mcg (1,000 unit) capsule 1,000 unit PO QDAY aspirin [Adult Low Dose Aspirin] 81 mg tablet,delayed release (DR/EC) 81 mg PO QDAY atorvastatin 20 mg tablet 20 mg PO QPM omeprazole 20 mg capsule,delayed release(DR/EC) 20 mg PO BID Qty: 180 1RF hydrochlorothiazide 25 mg tablet 25 mg PO DAILY Qty: 90 3RF amlodipine 10 mg tablet 10 mg PO DAILY Qty: 90 3RF metoprolol tartrate 25 mg tablet 25 mg PO BID Qty: 180 3RF Referrals / Follow Up: Gladis Castro DO [Primary Care Provider] - Within 1 Week Patrick Carlin DO [Med Staff - Active Staff] - Within 2 Weeks Disposition Disposition (needs filled in before D/C Order can be placed): Home, Self Care Charges/Coding Visit Charges Inpatient E&M: 50704 Disch Hosp >30min
--- NOTE | 2024-04-11 15:29 | CASEMGMT ---
RN CM into pt room, pt and dtr present. Pt denies any homegoing needs. Pt is I at home. 6 cl=24. Pt has dc in.
[2024-04-13 12:10] LABS: Vitamin D 1,25-Dihydroxy 45.2 pg/mL (24.8-81.5)
== END 2024-04-11 16:04 | disposition home or self-care (01) ==
LOC: ED 19:26 → MS3 21:44
PROVIDERS: Internal Medicine Gastroenterology; Admitting Provider Internal Medicine; Emergency Provider Emergency Medicine; PCP Internal Medicine; Visit Provider Family Medicine
PROC: 0DJ08ZZ Inspection of Upper Intestinal Tract, Via Natural or Artificial Opening Endoscopic (ICD-10-PCS; CPT 43235; principal; 2024-04-11 12:55)
DX: K44.0 Diaphragmatic hernia with obstruction, without gangrene (principal); N18.30 Chronic kidney disease, stage 3 unspecified; K22.70 Barrett's esophagus without dysplasia; E78.00 Pure hypercholesterolemia, unspecified; I44.7 Left bundle-branch block, unspecified; I25.10 Atherosclerotic heart disease of native coronary artery without angina pectoris; Z87.891 Personal history of nicotine dependence; I12.9 Hypertensive chronic kidney disease with stage 1 through stage 4 chronic kidney disease, or unspecified chronic kidney disease; R94.31 Abnormal electrocardiogram [ECG] [EKG]; I49.1 Atrial premature depolarization; N17.9 Acute kidney failure, unspecified
CPT/HCPCS: 43239; 43266; 76000; 80048; 80053; 82652; 83735; 84100; 84443; 85025; 88305; 88312; 88341; 88342; 93005; 96365; 96366; 96375; 99221; 99283; J7030; J7120; A4216; G0378; J1610; J2405

== ENCOUNTER 2024-05-07 13:58 | Inpatient (IN) | payer MEDICARE, SELFPAY ==
[2024-05-07] VITALS (16 sets, daily range): BP systolic 143–159; BP diastolic 56–65; PULSE 80–93; RESP 18–31; TEMP 36.6–36.7; O2SAT 63–96; BMI 23.2; BMI 22.5
--- OUTSIDE RECORDS SUMMARY | 2024-05-07 14:58 | XMS RPT_ITS | CCD ---
Author Organization [facility] Care Team Providers Care Hand Reamer Name Role Phone Unavailable Primary Care Provider Marbin DAVIS DO, DR PATEL Primary Care Physician KAROL ALFORD, DR COTTO Attending Marbin DAVIS DO, DR PATEL Primary Care Radha Montemayor MD, DR COTTO Attending Marbin DAVIS DO, DR PATEL Primary Care aRdha Montemayor MD, DR COTTO Attending Marbin DAVIS DO, DR PATEL Primary Care Radha Montemayor MD, DR COTTO Attending Marbin DAVIS DO, DR PATEL Primary Care Radha rodriguez Allergies Allergy Classification Reported Allergen(s) Allergy Type Date of Onset Reaction(s) Facility Cont[facility] (1 source) Contrast media; Translations: [iodinated radiocontrast agents] Substance Allergy [facility] Unclassified (1 source) Iodides Propensity to adverse reactions to drug [facility] (2 sources) Contrast media; Translations: [iodinated radiocontrast agents] Drug allergy [facility] Medications Current Medications Medication Drug Class(es) Dates Sig (Normalized) Sig (Original) acetaminophen 500 mg oral tablet (2 sources) Start: 11-11-2020 acetaminophen (TYLENOL) tablet 1,000 mg Start: 11-10-2020 End: 11-11-2020 acetaminophen (OFIRMEV) infu jaden 1,000 mg amLODIPine 10 mg oral tablet (5 sources) Dihydropyridine Calcium Channel Adama Start: 12-23-2023 amLODIPine 10 mg oral tablet Dose : 10 mg = 1 tab(s), Oral, qDay, # 90 tab(s), 0 Refill(s) Start Date: 12/23/23 Status: Ordered Start: 11-11-2020 take 10 mg by mouth once daily 10 mg, Oral, DAILY, First dose on Wed11/11/20 at 1115 aspirin 81 mg delayed release oral tablet (4 sources) Platelet Aggregation Inhibitor, Nonsteroidal Anti-inflammatory Drug Start: 12-27-2023 aspirin 81 mg ora l delayed release tablet Dose : 81 mg = 1 tab(s), Oral, Daily, 0 Refill(s) Start Date: 12/27/23 Status: Ordered End: 11-12-2020 take 1 tablet by mouth once daily aspirin 81 MG EC tablet Take 81 mg by mouth daily 0 11/12/2020 Discontinued (Stop Taking at Discharge) atorvastatin 20 mg oral tablet (5 sources) HMG-CoA Reductase Inhibitor Start: 12-23-2023 atorvastatin 20 mg oral tablet Dose : 20 mg = 1 tab(s), Oral, Daily, # 100 tab(s), 0 Refill(s) Start Date: 12/23/23 Status: Ordered Start: 11-11-2020 take 20 mg by mouth once daily 20 mg, Oral, DAILY, First dose on Wed11/11/20 at 1115 cholecalciferol 0.025 mg oral capsule (1 source) Vitamin D vitamin D 25 MCG (1000 UT) CAPS Take by mouth 0 Active 1 ml hydrALAZINE hydrochloride 20 mg/ml injection (3 sources) Arteriolar Vasodilator Start: 11-10-2020 End: 11-10-2020 hydrALAZINE (APRESOLINE) injection 10 mg Start: 11-10-2020 End: 11-10-2020 hydrALAZINE (APRESOLINE) 20 MG/ML injection hydroCHLOROthiazide 25 mg oral tablet (3 sources) Thiazide Diuretic Start: 12-23-2023 hydroCHLOROthiazide 25 mg oral tablet Dose : 25 mg = 1 tab(s), Oral, Daily, 0 Refill(s) Start Date: 12/23/23 Status: Ordered labetalol hydrochloride 5 mg/ml injectable solution (3 sources) beta-Adrenergic Adama Start: 11-10-2020 End: 11-10-2020 labetalol (NORMODYNE;TRANDATE) injection 10 mg Start: 11-10-2020 End: 11-10-2020 labetalol (NORMODYNE;TRANDAT E) 5 MG/ML injection Lopressor 25mg--USE metoprolol tartrate 25 mg oral tablet (3 sources) Start: 06-06-2024 Lopressor 25mg--USE metoprolol tartrate 25 mg oral tablet Dose : 25 mg = 1 tab(s), 0 Refill(s) Start Date: 12/23/23 Status: Ordered melatonin 3 mg oral tablet (1 source) Start: 11-11-2020 melatonin tabl et 3 mg metoprolol tartrate 25 mg oral tablet (3 sources) beta-Adrenergic Adama Start: 11-11-2020 take 25 mg by mouth twice daily 25 mg, Oral, 2 TIMES DAILY, First dose on Wed11/11/20 at 1115 Start: 11-10-2020 End: 11-11-2020 metoprolol (LOPRESSOR) injec tion 5 mg 24 hr nitroglycerin 0.3 mg/h r transdermal system (2 sources) Nitrate Vasodilator nitroGLYCERI N (NITROSTAT) 0.[address] 0.3 mg under the tongue every 5 minutes as needed for Chest pain up to max of 3 total doses. If no relief after 1 dose, call 911. 0 Active apply 0.3 mg transdermal route e very hour nitroGLYCERIN (NITRODUR) 0.3 MG/HR Place 1 patch onto the skin daily 0 Active omeprazole 20 mg delayed release oral capsule (1 source) Proton Pump Inhibitor take 1 capsule by mouth once daily omeprazole (PRILOSEC) 20 MG delayed release capsule Take 20 mg by mouth daily 0 Active ondansetron (ZOFRAN-ODT) disintegrating tablet 4 mg (1 source) Start: 11-11-19 ondansetron (ZOFRAN-ODT) disintegrating tablet 4 mg pantoprazole 40 mg delayed release oral tablet (1 source) Proton Pump Inhibitor Start: 11-13-19 take 40 mg by mouth once daily before breakfast 40 mg, Oral, DAILY BEFORE BREAKFAST, First dose on Wed11/12/20 at 0700 Do not crush or break. Substituted for Omeprazole (PRILOSEC). perflutren lipid microspheres (DEFINITY) injection 1.65 mg (1 source) Start: 11-12-19 End: 11-15-19 perflutren lipid microspheres (DEFINITY) injection 1.65 mg Vitamin D3 (3 sources) Start: 12-27-19 Vitamin D3 Dose : 10 mcg = 1 tab(s), Oral, Daily, 0 Refill(s) Start Date: 12/27/23 Status: Ordered Completed/Discontinued Medications Medication Drug Class(es) Dates Sig (Normalized) Sig (Original) 1000 ml sodium chloride 9 mg/ml injection (5 sources) Start: 11-10-2020 End: 11-14-2020 sodium chloride flush 0.9 % injection 10 mL Start: 11-10-2020 End: 11-11-2020 0.9 % sodium chloride infusi on Problems Problem Classification Problem Date Documented Da te Episodic/Chronic Intracranial injury (2 sources) History of subarachnoid hemorrhage; Translations: [Traumatic subarachnoid hemorrhage with loss of consciousness of 30 minutes or less, initial encounter] Episodic Other gastrointestinal disorders (2 sources) Dysphagia, unspecified; Translations: [Dysphagia, unspecified] Onset: 12-27-2023 Episodic Syncope (2 sources) Syncope and collapse; Translations: [Syncope and collapse] Episodic Results Test Name Value Interpretation Reference Range Facility Final Surgical Pathology Rep fadi 01-05-2024 Final Surgical Pathology Report . Pathology Reports Accession: Collected Date/Time: Received Date/Time: Pathologist: [id number] 01/03/2024 09:55 EDT 01/04/2024 07:27 EDT ELLIOTT NIEVES MD Final Surgical Pathology Report DIAGNOSIS: ESOPHAGEAL STRICTURE, BIOPSY: - SQUAMO-GLANDULAR MUCOSA WITH INTESTINAL METAPLASIA, CONSISTENT WITH BALES'S ESOPHAGUS - NEGATIVE FOR DYSPLASIA - ULCER DEBRIS AND ACTIVE INFLAMMATION PRESENT CLINICAL INFORMATION: Procedure: ESOPHAGOGASTRODUODENOSCOPY WITH DILATION AND BIOPSIES Preoperative diagnosis: DYSPHAGIA Postoperative diagnosis: DYSPHAGIA SPECIMEN: A ESOPHAGEAL STRICTURE GROSS DESCRIPTION: All parts labelled with patient name and [id number] Received in formalin labeled esophageal stricture are multiple wispy gamboa-pink tissue fragments aggregating 0.9 x 0.2 x 0.1 cm. TS-1 Miranda Akbar, Grossing Casino Cage Supervisor/ Dr. Shlomo Santos, Pathologist Dictated by Miradna Akbar MICROSCOPIC DESCRIPTION: The microscopic examination is performed, except in the case of Gross Only. Electronically Signed by Pathology Report verified by [facility] ELLIOTT NIEVES Sign out Date: 01/05/2024 10:29 Performing Lab: [facility], [address] [place] [address] Pathology Dept Disclaimer If ancillary studies were utilized, the following Laboratory Developed Test (LDT) disclaimer will apply: Under CLIA requirements, [facility] is qualified to perform high complexity testing. For all ancillary stains, positive and negative controls stain appropriately. Performance characteristics of immunohistochemical and chromogenic in-situ hybridization tests have been determined by [facility]. These tests are used for clinical purposes, They should not be regarded as investigational or for research. Normal [facility] ([place]) Final Surgical Pathology Rep [facility] 12-29-2023 Final Surgical Pathology Report . 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 Smallest fragments may not survive processing. TS-1 Miranda Akbar, Grossing Casino Cage Supervisor/ Dr. Shlomo Santos, Pathologist Dictated by Miranda Akbar MICROSCOPIC DESCRIPTION: The microscopic examination is performed, except in the case of Gross Only. Electronically Signed by Pathology Report verified by [facility] ISELA VILLASENOR MD Sign out Date: 12/29/2023 16:11 Performing Lab: [facility], [address] [place] [address] Pathology Dept Disclaimer If ancillary studies were utilized, the following Laboratory Developed Test (LDT) disclaimer will apply: Under CLIA requirements, [facility] is qualified to perform high complexity testing. For all ancillary stains, positive and negative controls stain appropriately. Performance characteristics of immunohistochemical and chromogenic in-situ hybridization tests have been determined by [facility]. These tests are used for clinical purposes, They should not be regarded as investigational or for research. Normal [facility] ([place]) CNPKimberli 11-21-2020 CNPN Telephone (INTMWS) IJEOMAFEI TAMAYO ([id number]) 1935 M Date Time Provider Department 11/21/20 MARCOS MCCANN IIIWS During your visit today, we recorded the following information about you: Loraine Corea LPN 11/21/2020 9:18 AM Signed ----- Message from Jian Ward MD sent at 11/21/2020 8:18 AM EDT ----- Good. No DVT. Elevate legs often. Limit salt intake. Follow up in 4 weeks if not sooner. Offer appointment to establish care since PCP is retiring. Loraine Corea LPN 11/21/2020 10:00 AM Signed notified of below results/recommendation. Offered to scheduled 4 week follow-up, will call if appt needed. Transferring care to local PCP. Loraine Corea LPN Allergies As of Date: 11/21/2020 Noted Allergy Reaction CONTRAST DYE 05/31/2012 14 - Other: See Comments Comments: Use caution when injection with any dye d/t decreased renal functions. HYGROTON 04/18/2019 14 - Other: See Comments Comments: erectile dysfunction Date Reviewed: 11/20/2020 Reviewed by: Loraine Corea LPN - Fully Assessed Reason for Visit: Results [95] Prescriptions as of 11/21/2020 Sig: OMEPRAZOLE 20 MG CAPSULE,LACEY* Take 1 capsule by mouth every* METOPROLOL TARTRATE 25 MG TAB* Take 1 tablet by mouth twice * ATORVASTATIN 20 MG TABLET TAKE 1 TABLET BY MOUTH EVERY * SILDENAFIL 50 MG TABLET use one/day as needed AMLODIPINE 10 MG TABLET Take 1 tablet by mouth once d* CHOLECALCIFEROL (VITAMIN D3) * Take 1,000 Units by mouth onc* FLUOROURACIL 5 % TOPICAL CREAM APPLY TO THE FACE TWICE DAILY* Patient not taking: Reported on 11/04/2020 Problem List As Of Date 11/21/2020 Noted Resolved CAROTID ART STENOSIS-NO INFARCT [I65.29] 10/05/2002 Hyperlipidemia LDL goal <100 [E78.5] 03/30/2005 BENIGN HYPERTENSION [I10] 03/30/2005 BALES'S ESOPHAGUS [K22.70] 10/16/2005 Coronary atherosclerosis [I25.10] 12/02/2007 Skin cancer of arm [C44.601] 05/31/2012 Wound infection (HCC) [T14.8XXA, L08.9] 07/08/2012 04/15/2015 ED (erectile dysfunction) [N52.9] 04/20/2013 Vitamin D deficiency [E55.9] 04/15/2015 Stage 3 chronic kidney disease (HCC) [N18.30] 04/20/2016 History of colon polyps [Z86.010] 04/20/2016 Atherosclerosis of [place] artery of both lower *04/21/2017 Secondary hyperparathyroidism (HCC) [N25.81] 11/01/2017 11/15/2018 Disorder of the skin and subcutaneous tissue, u*04/05/2017 04/25/2018 Encounter Status:Closed by LORAINE COREA LPN on 11/21/20 [facility] CNOVon 11-20-2020 CNOV Office Visit (INTMWS ) FEI ROGERS ([id number]) 1935 M Date Time Provider Department 11/20/20 2:40 PM JIAN WARD INTMWS During your visit today, we recorded the following information about you: Temperature Pulse Respiration Blood pressure 97.5 degrees 64/minute 16/minute 138/60 Weight 63 kg Jian Ward MD 11/21/2020 8:15 AM Signed This note was created using NoteWriter. Subjective Patient presents with: Edema Fei Rogers is a 85 year old male here with his spouse for new onset right leg edema, painless. He was not on any new medication. Not mentioned was the fact that he was just discharged from [facility] after syncope, traumatic subarachnoid hemorrhage, and cerebral contusion. He was taken off aspirin. He just saw neurology, Dr. Pantoja, today for a follow up and his SAH was being monitored. Review of Systems Constitutional: Negative. Eyes: Negative. Respiratory: Negative for chest tightness and shortness of breath. Cardiovascular: Negative for chest pain and palpitations. Musculoskeletal: Negative for myalgias. Neurological: Negative for dizziness, speech difficulty, weakness, light-headedness and headaches. 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 - metoprolol tartrate, short acting, (LOPRESSOR) 25 mg tablet Take 1 tablet by mouth twice daily. - atorvastatin (LIPITOR) 20 mg tablet TAKE 1 TABLET BY MOUTH EVERY DAY FOR CHOLESTEROL - sildenafil (VIAGRA) 50 mg tablet use one/day as needed - amLODIPine (NORVASC) 10 mg tablet Take 1 tablet by mouth once daily. - Cholecalciferol, Vitamin D3, (VITAMIN D) 1,000 unit cap Take 1,000 Units by mouth once daily. - Fluorouracil 5 % cream APPLY TO THE FACE TWICE DAILY FOR TWO WEEKS. (Patient not taking: Reported on 11/04/2020) No current facility-administered medications for this visit. Objective BP 138/60 (BP Site: Right Arm, BP Position: Sitting, BP Cuff Size: Regular Adult) Pulse 64 Temp 36.4 ?C (97.5 ?F) (Temporal Artery) Resp 16 Wt 63 kg (139 lb) BMI 22.44 kg/m? Physical Exam Constitutional: General: He is not in acute distress. HENT: Head: Atraumatic. Eyes: Extraocular Movements: Extraocular movements intact. Pupils: Pupils are equal, round, and reactive to light. Cardiovascular: Rate and Rhythm: Normal rate and regular rhythm. Heart sounds: No murmur heard. No gallop. Pulmonary: Breath sounds: Normal breath sounds. No wheezing or rales. Musculoskeletal: General: No tenderness. Right lower leg: Edema present. Left lower leg: Edema present. Comments: 2+ edema, right. Trace edema left. No cords, no Ernie's sign. Neurological: General: No focal deficit present. Mental Status: He is alert. Gait: Gait normal. Psychiatric: Attention and Perception: Attention normal. Speech: Speech normal. Assessment and Plan 1. Edema of right lower leg - ICD9: 782.3, ICD10: R60.0 (primary diagnosis) - US LEG VEIN DVT UNL VAS LAB - Further recommendations will depend on the result. If positive, he may need IVC filter. 2. Subarachnoid hemorrhage following injury, with loss of consciousness, subsequent encounter - ICD9: V58.89, ICD10: S06.6X9D Monitored. 3. Contusion of cerebrum with loss of consciousness, unspecified laterality, subsequent encounter - ICD9: V58.89, ICD10: S06.339D Improved. Jian Ward MD Referring Provider: SELF [200] Allergies As of Date: 11/20/2020 Noted Allergy Reaction CONTRAST DYE 05/31/2012 14 - Other: See Comments Comments: Use caution when injection with any dye d/t decreased renal functions. HYGROTON 04/18/2019 14 - Other: See Comments Comments: erectile dysfunction Date Reviewed: 11/20/2020 Reviewed by: Loraine Corea LPN - Fully Assessed Reason for Visit: Edema [39] Primary Visit Diagnosis:Edema of right lower leg [R60.0] Other Visit Diagnoses:Subarachnoid hemorrhage following injury, with loss of consciousness, subsequent encounter [S06.6X9D] Contusion of cerebrum with loss of consciousness, unspecified laterality, subsequent encounter [S06.339D] Order(s):US LEG VEIN DVT UNL VAS LAB [[id number]] Order #: [id number] FUTURE Prescriptions as of 11/20/2020 Sig: OMEPRAZOLE 20 MG CAPSULE,LACEY* Take 1 capsule by mouth every* METOPROLOL TARTRATE 25 MG TAB* Take 1 tablet by mouth twice * ATORVASTATIN 20 MG TABLET TAKE 1 TABLET BY MOUTH EVERY * S (more content not included)... Normal [facility] CT HEAD WO CONTRASTOrdered B y: Ady Fang on 11-12-2020 Patient Name: FEI MORALES Computed Tomography ACCESSION EXAM DATE/TIME PROCEDURE ORDERING PROVIDER [id number] 11/12/2020 04:[address] Head or Brain w/o [id number] -VENCZEL, ADY Contrast CPT code 86343 Reason For Exam (CT Head or Brain w/o Contrast) SAH and frontal cortex contusion Report CT HEAD: CLINICAL INDICATION: Follow-up for subarachnoid hemorrhage TECHNIQUE: Transaxial CT sequence performed through the head with 3 mm reconstruction. Sagittal and Coronal reconstruction images included. Dose reduction employed with automated exposure control. COMPARISON: One day ago FINDINGS: Fluid again noted is a small amount of high attenuation blood within a sulcus in the right parasagittal frontal region and in the right supraorbital region. There is also CSF attenuation spaces adjacent to the left cerebral hemisphere with thickness of up to 0.6 cm and on the right in the range of up to 0.4 cm. No new abnormality is noted throughout the cerebrum or cerebellum. IMPRESSION: 1. Small residual amounts of subarachnoid blood on the right 2. Subdural hygromas without change. Report Dictated on Workstation: [id number] --- Final --- Dictated: 11/12/2020 4:36 am Dictating Physician: MD CARTER JEFFREY Signed Date and Time: 11/12/2020 4:38 am Signed by: MD CARTER JEFFREY Transcribed Date and Time: 11/12/2020 4:36 [facility] Work Phone: [facility] From [facility] - 11/12/2020 4:39 AM EDT Patient Name: FEI ROGERS Computed Tomography ACCESSION EXAM DATE/TIME PROCEDURE ORDERING PROVIDER [id number] 11/12/2020 04:[address] Head or Brain w/o [id number] -VENCZEL, ADY Contrast CPT code 66864 Reason For Exam (CT Head or Brain w/o Contrast) SAH and frontal cortex contusion Report CT HEAD: CLINICAL INDICATION: Follow-up for subarachnoid hemorrhage TECHNIQUE: Transaxial CT sequence performed through the head with 3 mm reconstruction. Sagittal and Coronal reconstruction images included. Dose reduction employed with automated exposure control. COMPARISON: One day ago FINDINGS: Fluid again noted is a small amount of high attenuation blood within a sulcus in the right parasagittal frontal region and in the right supraorbital region. There is also CSF attenuation spaces adjacent to the left cerebral hemisphere with thickness of up to 0.6 cm and on the right in the range of up to 0.4 cm. No new abnormality is noted throughout the cerebrum or cerebellum. IMPRESSION: 1. Small residual amounts of subarachnoid blood on the right 2. Subdural hygromas without change. Report Dictated on Workstation: [id number] --- Final --- Dictated: 11/12/2020 4:36 am Dictating Physician: MD CARTER JEFFREY Signed Date and Time: 11/12/2020 4:38 am Signed by: MD CARTER JEFFREY Transcribed Date and Time: 11/12/2020 4:36 [facility] Work Phone: CT Head or Brain w/o Contras ton 11-12-2020 CT Head or Brain w/o Contrast Patient Name: FEI ROGERS Computed Tomography ACCESSION EXAM DATE/TIME PROCEDURE ORDERING PROVIDER [id number] 11/12/2020 04:[address] Head or Brain w/o [id number] -VENCZEL, ADY Contrast CPT code 01295 Reason For Exam (CT Head or Brain w/o Contrast) SAH and frontal cortex contusion Report CT HEAD: CLINICAL INDICATION: Follow-up for subarachnoid hemorrhage TECHNIQUE: Transaxial CT sequence performed through the head with 3 mm reconstruction. Sagittal and Coronal reconstruction images included. Dose reduction employed with automated exposure control. COMPARISON: One day ago FINDINGS: Fluid again noted is a small amount of high attenuation blood within a sulcus in the right parasagittal frontal region and in the right supraorbital region. There is also CSF attenuation spaces adjacent to the left cerebral hemisphere with thickness of up to 0.6 cm and on the right in the range of up to 0.4 cm. No new abnormality is noted throughout the cerebrum or cerebellum. IMPRESSION: 1. Small residual amounts of subarachnoid blood on the right 2. Subdural hygromas without change. Report Dictated on Workstation: [id number] Final Dictated: 11/12/2020 4:36 am Dictating Physician: MD CARTER JEFFREY Signed Date and Time: 11/12/2020 4:38 am Signed by: MD CARTER JEFFREY Transcribed Date and Time: 11/12/2020 4:36 Normal [facility] Vit D 25-OH, Totalon 021 Vit D 25-OH, Total 53 ng/mL Normal 30-100 [facility] Comment on above: Result Comment: Ther apy is based on measurement of Total 25- OHD with the following classification levels: Less than 20 ng/mL: Indicative of Vit D deficiency 20-30 ng/mL: Suggests Vit D insufficiency Optimal: Greater than or equal to 30 ng/mL Test performed by [employer] Competitive Immunoassay, measuring Total Vitamin D, not individual fractions. Performed By: #### V D25H #### [facility] [address] [place] [address] Vitamin D 25 HydroxyOrdered By: Rafael Longo on 11-12-2020 Vit D, 25-Hydroxy 53 ng/mL 30 - 100 ng/mL [facility] Work Phone: Comment on above: Therapy is based on measurement of Total 25-OHD with the following classification levels: Less than 20 ng/mL: Indicative of Vit D deficiency 20-30 ng/mL: Suggests Vit D insufficiency Optimal: Greater than or equal to 30 ng/mL Test performed by [employer] Competitive Immuno[employer], measuring Total Vitamin D, not individual fractions. Test Performed by [facility], [address], [place], [place] [address] [facility] Work Phone: Add On Lab TestOrdered By: Yvette Longo on 11-11-2020 Add On Rejected [facility] Work Phone: Comment on above: already done Test Performed by [facility], [address] [place] [address] [facility] Work Phone: Add on test from HISon 11-11 Add on test from HIS Rejected Normal [facility] Comment on above: Result Comment: alre elly done Performed By: #### A DDON ####[place] [id number] [place] [place] [address] Basic Metabolic Panelon - Anion gap [Moles/Vol] 6 mmol/L Normal 3-13 [facility] Comment on above: Performed By: #### P HOS3, TSH5, MG3, FOLT3, BMP3, B12, HEMDF ####[place] [id number], [place] #### VD25H ####[facility] [place] [address] Calcium [Mass/Vol] 9.0 mg/dL Normal 8.4-10.4 [facility] Comment on above: Performed By: #### P HOS3, TSH5, MG3, FOLT3, BMP3, B12, HEMDF ####[address] [place], [place] #### VD25H ####[place] [address] [place] [address] CO2 [Moles/Vol] 26 mmol/L Normal 22-30 [facility] Comment on above: Performed By: #### P HOS3, TSH5, MG3, FOLT3, BMP3, B12, HEMDF ####[place] [address] [address], [place] #### VD25H ####[facility] [place] [address] Glucose [Mass/Vol] 106 mg/dL High 70-100 [facility] Comment on above: Performed By: #### P HOS3, TSH5, MG3, FOLT3, BMP3, B12, HEMDF ####[place] [address] [address] #### VD25H ####[facility] [place] [address] Urea nitrogen [Mass/Vol] 34 mg/dL High 7-20 [facility] [facility] Comment on above: Performed By: #### P HOS3, TSH5, MG3, FOLT3, BMP3, B12, HEMDF ####[id number] [place], [place] #### VD25H ####[address] [place] [address] Creatinine [Mass/Vol] 1.48 mg/dL High 0.52-1.25 [facility] Comment on above: Performed By: #### P HOS3, TSH5, MG3, FOLT3, BMP3, B12, HEMDF ####[address] [place], [place] #### VD25H ####[address] [place] [address] GFR/1.73 sq M.predicted among blacks MDRD (S/P/Bld) [Vol rate/Area] 49.5 mL/min/{1.73_m2} Abnormal >60 [facility] Comment on above: Performed By: #### P HOS3, TSH5, MG3, FOLT3, BMP3, B12, HEMDF ####[address] [place], [place] #### VD25H ####[address] [address] GFR/1.73 sq M.predicted among non-blacks MDRD (S/P/Bld) [Vol rate/Area] 42.7 mL/min/{1.73_m2} Abnormal >60 [facility] Comment on above: Result Comment: KDIG O guidelines provide the following GFR categories: Stage GFR(ml/min/1.73 m2) Terms G1 >=90 Normal or high G2 60-89 Mildly decreased* G3a 45-59 Mildly to moderately decreased G3b 30-44 Moderately to severely decreased G4 15-29 Severely decreased G5 <15 Kidney failure *Relative to young adult level. In the absence of evidence of kidney damage, neither GFR category G1 nor G2 fulfill the criteria for CKD. The CKD-EPI equation is validated in individuals 18 years of age and older. Currently the best equation for estimating glomerular filtration rate (GFR) from serum creatinine in children is the Bedside Frankel equation. It is less accurate in patients with extremes of muscle mass, restriction of dietary protein, ingestion of creatine, extra-renal metabolism of creatinine, or treatment with medications that affect renal tubular creatinine secretion. Performed By: #### P HOS3, TSH5, MG3, FOLT3, BMP3, B12, HEMDF ####[address] [place] [address]#### VD25H ####[facility] [facility] [place] [address] Chloride [Moles/Vol] 107 mmol/L Normal 98-107 [facility] Comment on above: Performed By: #### P HOS3, TSH5, MG3, FOLT3, BMP3, B12, HEMDF ####[address] #### VD25H ####[facility] [place] [address] Potassium [Moles/Vol] 4.5 mmol/L Normal 3.5-5.1 [facility] Comment on above: Performed By: #### P HOS3, TSH5, MG3, FOLT3, BMP3, B12, HEMDF ####[address] #### VD25H ####[facility] [facility] [address] [facility] [place] [address] Sodium [Moles/Vol] 139 mmol/L Normal 135-145 [facility] Comment on above: Performed By: #### P HOS3, TSH5, MG3, FOLT3, BMP3, B12, HEMDF ####[address] [place], [place] #### VD25H ####[facility] [facility] [address] [facility] [place] [address] Basic Metabolic PanelOrdered By: Cedric Jane on 11-11-2020 Anion gap [Moles/Vol] 6 mmol/L 3 - 13 mmol/L [facility] Work Phone: Calcium [Mass/Vol] 9.0 mg/dL 8.4 - 10. 4 mg/dL [facility] Work Phone: Chloride [Moles/Vol] 107 mmol/L 98 - 10 7 mmol/L [facility] Work Phone: CO2 [Moles/Vol] 26 mmol/L 22 - 30 mmol/L [facility] Work Phone: Creatinine [Mass/Vol] 1.48 mg/dL High 0.52 - 1.25 mg/dL [facility] Work Phone: EGFR IF NonAfrican Romanian 42.7 mL/min Abnormal >60 [facility] Work Phone: Comment on above: KDIGO guidelines pro vide the following GFR categories: Stage GFR(ml/min/1.73 m2) Terms G1 >=90 Normal or high G2 60-89 Mildly decreased* G3a 45-59 Mildly to moderately decreased G3b 30-44 Moderately to severely decreased G4 15-29 Severely decreased G5 <15 Kidney failure *Relative to young adult level. In the absence of evidence of kidney damage, neither GFR category G1 nor G2 fulfill the criteria for CKD. The CKD-EPI equation is validated in individuals 18 years of age and older. Currently the best equation for estimating glomerular filtration rate (GFR) from serum creatinine in children is the Bedside Frankel equation. It is less accurate in patients with extremes of muscle mass, restriction of dietary protein, ingestion of creatine, extra-renal metabolism of creatinine, or treatment with medications that affect renal tubular creatinine secretion. GFR/1.73 sq M.predicted among blacks MDRD (S/P/Bld) [Vol rate/Area] 49.5 mL/min/{1.73_m2} Abnormal >60 [facility] Work Phone: Glucose [Mass/Vol] 106 mg/dL High 70 - 100 mg/dL [facility] Work Phone: Potassium [Moles/Vol] 4.5 mmol/L 3.5 - 5.1 mmol/L [facility] Work Phone: Sodium [Moles/Vol] 139 mmol/L 135 - 145 mmol/L [facility] Work Phone: Urea nitrogen (BldV) [Mass/Vol] 34 mg/dL High 7 - 20 mg/dL [facility] Work Phone: [phone] CBC auto differentialOrdered By: Cedric Jane on 11-11-2020 Absolute Baso # 0.1 10*3/uL 0.0 - 0.2 10*3/uL [facility] Work Phone: Absolute Neut # 7.5 10*3/uL High 1.8 - 7.0 10*3/uL [facility] Work Phone: Hemoglobin.gastrointe stinal spec 1 Ql (Stl) 12.4 g/dL Low 13.0 - 18.0 g/dL [facility] Work Phone: MCHC (RBC) [Mass/Vol] 32.4 % 32.0 - 36.0 % [facility] Work Phone: Platelet distribution width (Bld) [Ratio] 13.2 % 11.5 - 14.5 % [facility] Work Phone: CT Head or Brain w/o Contras ton 11-11-2020 CT Head or Brain w/o Contrast Patient Name: FEI ROGERS Computed Tomography ACCESSION EXAM DATE/TIME PROCEDURE ORDERING PROVIDER [id number] 11/11/2020 04:[address] Head or Brain w/o MD AUGUSTA, ADY Contrast CPT code 44679 Reason For Exam (CT Head or Brain w/o Contrast) repeat after [facility] Report CT HEAD: CLINICAL INDICATION: Follow-up for subarachnoid hemorrhage TECHNIQUE: Transaxial CT sequence performed through the head with 3 mm reconstruction. Sagittal and Coronal reconstruction images included. Dose reduction employed with automated exposure control. COMPARISON: Outside examination from one day ago FINDINGS: Again noted is high attenuation subarachnoid blood within the right focal region just superior to the right orbit and in the right parasagittal frontal region near the convexity. There is also subarachnoid blood within the anterior aspect of the middle cranial fossa adjacent to the temporal lobe. There is also relative enlargement of the extra-axial subdural spaces with CSF attenuation. There is a thickness on the left of up to 0.6 cm and slightly smaller on the right. Ill-defined low-attenuation region in the left posterior parietal lobe extending from the periphery to the surface of the ventricle corresponds to old infarct. No new focal parenchymal lesion is noted. Brainstem: Normal Visualized Paranasal sinuses: Normal. Mastoid air cells: Normal Visualized Orbits: Normal Calvarium and skull base: Normal IMPRESSION: 1. No change in subarachnoid blood in the right frontal and left temporal regions 2. Small subdural hygromas containing CSF attenuation without evidence of subfalcine or downward transtentorial herniation 3. 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 Computed Tomography Report Report Dictated on Workstation: [email or web address] Final Dictated: 11/11/2020 5:41 am Dictating Physician: MD CARTER JEFFREY Signed Date and Time: 11/11/2020 5:49 am Signed by: MD CARTER JEFFREY Transcribed Date and Time: 11/11/2020 5:41 Normal [facility] CT head without contrastOrde red By: Ady Deras on 11-11-2020 Patient Name: FEI MORALES Computed Tomography ACCESSION EXAM DATE/TIME PROCEDURE ORDERING PROVIDER [id number] 11/11/2020 04:[address] Head or Brain w/o MD DERAS KEVIN Contrast CPT code 53957 Reason For Exam (CT Head or Brain w/o Contrast) repeat after [facility] Report CT HEAD: CLINICAL INDICATION: Follow-up for subarachnoid hemorrhage TECHNIQUE: Transaxial CT sequence performed through the head with 3 mm reconstruction. Sagittal and Coronal reconstruction images included. Dose reduction employed with automated exposure control. COMPARISON: Outside examination from one day ago FINDINGS: Again noted is high attenuation subarachnoid blood within the right focal region just superior to the right orbit and in the right parasagittal frontal region near the convexity. There is also subarachnoid blood within the anterior aspect of the middle cranial fossa adjacent to the temporal lobe. There is also relative enlargement of the extra-axial subdural spaces with CSF attenuation. There is a thickness on the left of up to 0.6 cm and slightly smaller on the right. Ill-defined low-attenuation region in the left posterior parietal lobe extending from the periphery to the surface of the ventricle corresponds to old infarct. No new focal parenchymal lesion is noted. Brainstem: Normal Visualized Paranasal sinuses: Normal. Mastoid air cells: Normal Visualized Orbits: Normal Calvarium and skull base: Normal IMPRESSION: 1. No change in subarachnoid blood in the right frontal and left temporal regions 2. Small subdural hygromas containing CSF attenuation without evidence of subfalcine or downward transtentorial herniation 3. 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 Computed Tomography Report Report Dictated on Workstation: [email or web address] --- Final --- Dictated: 11/11/2020 5:41 am Dictating Physician: MD CARTER JEFFREY Signed Date and Time: 11/11/2020 5:49 am Signed by: MD CARTER JEFFREY Transcribed Date and Time: 11/11/2020 5:41 [facility] Work Phone: [facility], [facility] Incoming Radiology Results From [facility] - 11/11/2020 5:50 AM EDT Patient Name: FEI ROGERS Computed Tomography ACCESSION EXAM DATE/TIME PROCEDURE ORDERING PROVIDER [id number] 11/11/2020 04:[address] Head or Brain w/o MD AUGUSTA, ADY Contrast CPT code 22933 Reason For Exam (CT Head or Brain w/o Contrast) repeat after [facility] Report CT HEAD: CLINICAL INDICATION: Follow-up for subarachnoid hemorrhage TECHNIQUE: Transaxial CT sequence performed through the head with 3 mm reconstruction. Sagittal and Coronal reconstruction images included. Dose reduction employed with automated exposure control. COMPARISON: Outside examination from one day ago FINDINGS: Again noted is high attenuation subarachnoid blood within the right focal region just superior to the right orbit and in the right parasagittal frontal region near the convexity. There is also subarachnoid blood within the anterior aspect of the middle cranial fossa adjacent to the temporal lobe. There is also relative enlargement of the extra-axial subdural spaces with CSF attenuation. There is a thickness on the left of up to 0.6 cm and slightly smaller on the right. Ill-defined low-attenuation region in the left posterior parietal lobe extending from the periphery to the surface of the ventricle corresponds to old infarct. No new focal parenchymal lesion is noted. Brainstem: Normal Visualized Paranasal sinuses: Normal. Mastoid air cells: Normal Visualized Orbits: Normal Calvarium and skull base: Normal IMPRESSION: 1. No change in subarachnoid blood in the right frontal and left temporal regions 2. Small subdural hygromas containing CSF attenuation without evidence of subfalcine or downward transtentorial herniation 3. 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 Computed Tomography Report Report Dictated on Workstation: [email or web address] --- Final --- Dictated: 11/11/2020 5:41 am Dictating Physician: MD CARTER JEFFREY Signed Date and Time: 11/11/2020 5:49 am Signed by: MD CARTER JEFFREY Transcribed Date and Time: 11/11/2020 5:41 [facility] Work Phone: Complete Urinalysison 2020 Appearance (U) Clear Normal Clear [facility] Comment on above: Result Comment: . Performed By: #### C UA2 ####[facility] [employer] [id number] [place], [place] Bacteria Few Abnormal Negative [facility] Comment on above: Result Comment: . Performed By: #### C UA2 ####[facility] [employer] [id number] [place], [place] Bilirubin,Urine Negative Normal Negative [facility] Comment on above: Result Comment: . Performed By: #### C UA2 ####[facility] [employer] [id number] [place], [place] Cast, Hyaline 0 - 2 Abnormal Negative [facility] Comment on above: Result Comment: . Performed By: #### C UA2 ####[facility] [employer] [id number] [place], [place] Color (U) Light-Yellow Normal Lt. Yellow [facility] Comment on above: Result Comment: . Performed By: #### C UA2 ####[facility] [employer] [id number] [place], [place] Glucose Ql (U) Normal Normal Normal (<70) [facility] Comment on above: Result Comment: . Performed By: #### C UA2 ####[facility] [employer] [id number] [place], [place] Ketone,Urine Negative Normal Negative [facility] Comment on above: Result Comment: . Performed By: #### C UA2 ####[facility] [employer] [id number] [place], [place] Leukocytes,Urine Negative Normal Negative [facility] Comment on above: Result Comment: . Performed By: #### C UA2 ####[facility] [employer] [id number] [place], [place] Mucous Threads Few Normal Negative [facility] Comment on above: Result Comment: . Performed By: #### C UA2 ####[id number] [place], [place] Nitrites,Urine Negative Normal Negative [facility] Comment on above: Result Comment: . Performed By: #### C UA2 ####[address] [place], [place] Occult Blood,Urine Negative Normal Negative [facility] Comment on above: Result Comment: . Performed By: #### C UA2 ####[address] pH,Urine 5.0 Normal 5.0-8.0 [facility] Comment on above: Result Comment: . Performed By: #### C UA2 ####[address] Protein (U) [Mass/Vol] 10 mg/dL Abnormal Negative [facility] Comment on above: Result Comment: . Performed By: #### C UA2 ####[address] RBC LM.HPF (Urine sed) [#/Area] Negative Normal 0-2 [facility] Comment on above: Result Comment: . Performed By: #### C UA2 ####[address] Specific [place],Urine 1.013 Normal 1.005 - 1.030 [facility] Comment on above: Result Comment: . Performed By: #### C UA2 ####[address] Squamous Epithelial Negative Normal 3-5 [facility] Comment on above: Result Comment: . Performed By: #### C UA2 ####[address] Urobilinogen,Urine Normal Normal Normal (0-1) [facility] Comment on above: Result Comment: . Performed By: #### C UA2 ####[address] WBC, Urine 0 - 2 Normal 0-5 [facility] [employer] [facility] Comment on above: Result Comment: . Performed By: #### C UA2 ####[facility] [id number] [place] [address] ECHO Complete 2D W Doppler W ColorOrdered By: Ady Deras on 11-11-2020 TRANSTHORACIC E[place]A RDIOGRAM PATIENT: Fei oRgers STUDY DATE: 11/11/2020 : 1935 AGE: 85 HT/WT: 167.6 cm (66 61.2 kg (134.7 in) lb) GENDER: M BP: 145 / 76 LOCATION: [facility] PATIENT Inpatient main STATUS: *ORDERING PHYSICIAN: * Ady DerasREADING PHYSICIAN: * Alexandro, *RN DIGESTIVE: * Tessa Victoria Gabriela CCT INDICATIONS: Syncopal Fall, History of 5 Vessel CABG. CONCLUSIONS SUMMARY: 1. Left ventricle: There is mild concentric hypertrophy. Systolic function is normal by the biplane method of disks. The estimated ejection fraction is 58%. There are no regional wall motion abnormalities. Features are consistent with a pseudonormal left ventricular filling pattern, with concomitant abnormal relaxation and increased filling pressure (grade 2 diastolic dysfunction). The ratio of mitral valve peak E velocity to average of medial and lateral annular early diastolic velocity is 25.6. 2. Left atrium: The atrium is moderately dilated. 3. Mitral valve: Mildly to moderately calcified annulus. There is mild, 1+ regurgitation. 4. Aortic valve: There is moderate, 2+ regurgitation. 5. Tricuspid valve: There is mild, 1+ regurgitation. STUDY DATA: Complete transthoracic echocardiogram. Procedure: Image quality was adequate. The study was technically limited due to body habitus. Intravenous imaging enhancement (Definity) was administered to opacify the chamber. Definity lot #: [id number]. M-mode, complete 2D, complete spectral Doppler, and color flow Doppler images were acquired and archived for permanent storage and are available for subsequent review. Study status: Routine. Patient status: Inpatient. FINDINGS LEFT VENTRICLE: The cavity size is normal. There is mild concentric hypertrophy. Systolic function is normal by the biplane method of disks. The estimated ejection fraction is 58%. There are no regional wall motion abnormalities. Features are consistent with a pseudonormal left ventricular filling pattern, with concomitant abnormal relaxation and increased filling pressure (grade 2 diastolic dysfunction). E/e' average: 25.6 RIGHT VENTRICLE: The cavity size is normal. Systolic function is normal. Right ventricular systolic pressure is within the normal range. VENTRICULAR SEPTUM: There is no evidence of a ventricular septal defect. LEFT ATRIUM: The atrium is moderately dilated. RIGHT ATRIUM: The atrium is normal in size. ATRIAL SEPTUM: Color Doppler shows no shunt. MITRAL VALVE: Mildly to moderately calcified annulus. Doppler: There is mild, 1+ regurgitation. The peak diastolic gradient is 6 mm Hg. AORTIC VALVE: Structurally normal valve. Trileaflet. Doppler: There is moderate, 2+ regurgitation. The peak systolic gradient is 9 mm Hg. The peak systolic velocity is 1.5 m/sec. TRICUSPID VALVE: Structurally normal valve. Doppler: There is mild, 1+ regurgitation. PULMONIC VALVE: Structurally normal valve. Doppler: There is trivial, less than 1+ regurgitation. AORTA: The aorta is normal. PULMONARY ARTERY: Main pulmonary artery: Normal. PERICARDIUM: There is no pericardial effusion. SYSTEMIC VEINS: Inferior vena cava: The vessel is normal. The IVC collapses by greater than 50% with inspiration. Measurements Value Reference Aortic root ID 2.5 cm <3.9 Aortic root ID, STJ, ED (L) 1.6 cm 2.3 - 3.5 Aortic root ID/bsa, STJ, ED (L) 0.9 cm/m^2 1.1 - 1.9 Value Reference Ascending aorta ID, A-P, S 2.3 cm Ascending aorta ID/bsa, A-P, S 1.3 cm/m^2 Left ventricle Value Reference LV ID, ED 4.4 cm 4.2 - 5.8 LV ID, ES 3.2 cm 2.5 - 4.0 LV ID/bsa, ED 2.6 cm/m^2 2.2 - 3.0 LV ID/bsa, ES 1.9 cm/m^2 1.3 - 2.1 LV PW thickness, ED (H) 1.1 cm 0.6 - 1.0 LV PW/LV ID ratio, ED 0.25 LV wall mass 156 g 96 - 200 LV wall mass/bsa 92 g/m^2 50 - 102 Stroke volume/bsa, 1-p A2C 47.3 ml/m^2 ---- (more content not included)... [facility] Work Phone: Juan, [employer] Incoming Cardiology Results From [facility] - 11/11/2020 12:42 PM EDT TRANSTHORACIC ECHOCARDIOGRAM PATIENT: Fei Rogers STUDY DATE: 11/11/2020 : 1935 AGE: 85 HT/WT: 167.6 cm (66 61.2 kg (134.7 in) lb) GENDER: M BP: 145 / 76 LOCATION: [facility] PATIENT Inpatient main STATUS: *ORDERING PHYSICIAN: * Ady DerasREADING PHYSICIAN: * Alexandro, *RN DIGESTIVE: * Tessa Victoria, Patti CCT INDICATIONS: Syncopal Fall, History of 5 Vessel CABG. CONCLUSIONS SUMMARY: 1. Left ventricle: There is mild concentric hypertrophy. Systolic function is normal by the biplane method of disks. The estimated ejection fraction is 58%. There are no regional wall motion abnormalities. Features are consistent with a pseudonormal left ventricular filling pattern, with concomitant abnormal relaxation and increased filling pressure (grade 2 diastolic dysfunction). The ratio of mitral valve peak E velocity to average of medial and lateral annular early diastolic velocity is 25.6. 2. Left atrium: The atrium is moderately dilated. 3. Mitral valve: Mildly to moderately calcified annulus. There is mild, 1+ regurgitation. 4. Aortic valve: There is moderate, 2+ regurgitation. 5. Tricuspid valve: There is mild, 1+ regurgitation. STUDY DATA: Complete transthoracic echocardiogram. Procedure: Image quality was adequate. The study was technically limited due to body habitus. Intravenous imaging enhancement (Definity) was administered to opacify the chamber. Definity lot #: [id number]. M-mode, complete 2D, complete spectral Doppler, and color flow Doppler images were acquired and archived for permanent storage and are available for subsequent review. Study status: Routine. Patient status: Inpatient. FINDINGS LEFT VENTRICLE: The cavity size is normal. There is mild concentric hypertrophy. Systolic function is normal by the biplane method of disks. The estimated ejection fraction is 58%. There are no regional wall motion abnormalities. Features are consistent with a pseudonormal left ventricular filling pattern, with concomitant abnormal relaxation and increased filling pressure (grade 2 diastolic dysfunction). E/e' average: 25.6 RIGHT VENTRICLE: The cavity size is normal. Systolic function is normal. Right ventricular systolic pressure is within the normal range. VENTRICULAR SEPTUM: There is no evidence of a ventricular septal defect. LEFT ATRIUM: The atrium is moderately dilated. RIGHT ATRIUM: The atrium is normal in size. ATRIAL SEPTUM: Color Doppler shows no shunt. MITRAL VALVE: Mildly to moderately calcified annulus. Doppler: There is mild, 1+ regurgitation. The peak diastolic gradient is 6 mm Hg. AORTIC VALVE: Structurally normal valve. Trileaflet. Doppler: There is moderate, 2+ regurgitation. The peak systolic gradient is 9 mm Hg. The peak systolic velocity is 1.5 m/sec. TRICUSPID VALVE: Structurally normal valve. Doppler: There is mild, 1+ regurgitation. PULMONIC VALVE: Structurally normal valve. Doppler: There is trivial, less than 1+ regurgitation. AORTA: The aorta is normal. PULMONARY ARTERY: Main pulmonary artery: Normal. PERICARDIUM: There is no pericardial effusion. SYSTEMIC VEINS: Inferior vena cava: The vessel is normal. The IVC collapses by greater than 50% with inspiration. Measurements Value Reference Aortic root ID 2.5 cm <3.9 Aortic root ID, STJ, ED (L) 1.6 cm 2.3 - 3.5 Aortic root ID/bsa, STJ, ED (L) 0.9 cm/m^2 1.1 - 1.9 Value Reference Ascending aorta ID, A-P, S 2.3 cm Ascending aorta ID/bsa, A-P, S 1.3 cm/m^2 Left ventricle Value Reference LV ID, ED 4.4 cm 4.2 - 5.8 LV ID, ES 3.2 cm 2.5 - 4.0 LV ID/bsa, ED 2.6 cm/m^2 2.2 - 3.0 LV ID/bsa, ES 1.9 cm/m^2 1.3 - 2.1 LV PW thickness, ED (H) 1.1 cm 0.6 - 1.0 LV PW/LV ID ratio, ED 0.25 LV wall mass 156 g 96 - 200 LV wall mass/bsa 92 g/m^2 50 - 102 Stroke volume/bsa, 1-p A2C 47.3 ml/m^2 LV end-diastolic volume, 1-p A4C 114 ml 69 - 185 LV end-systolic volume, 1-p A4C 53 ml 22 - 78 LV end-diastolic volume, 2-p 125 ml 62 - 150 LV end-systolic volume, 2-p 53 ml 21 - 61 LV ejection fraction, 2-p 58 % 52 - 72 LV E/e', lateral 18.5 LV E/e', medial 41.4 LV E/e', average 25.6 Ventricular septum Value Reference IVS thickness, ED 1.0 cm 0.6 - 1.0 LVOT Value Reference LVOT ID, A-P 2.0 cm A (more content not included)... [facility] Work Phone: Echo Complete w/wo Contrasto n 11-11-2020 Echo Complete w/wo Contrast Patient Name: FEI ROGERS Ultrasound ACCESSION EXAM DATE/TIME PROCEDURE ORDERING PROVIDER [id number] 11/11/2020 11:25 EDT Echo Complete w/wo MD DERAS KEVIN Contrast Reason For Exam (Echo Complete w/wo Contrast) syncopal fall. history of 5 vessel cabg Report TRANSTHORACIC ECHOCARDIOGRAM PATIENT: Fei Rogers STUDY DATE: 11/11/2020 : 1935 AGE: 85 HT/WT: 167.6 cm (66 61.2 kg (134.7 in) lb) GENDER: M BP: 145 / 76 LOCATION: [facility] PATIENT Inpatient main STATUS: *ORDERING PHYSICIAN: * Ady Deras *READING PHYSICIAN: * Alexandro, *RN DIGESTIVE: * Tessa Victoria Gabriela CCT INDICATIONS: Syncopal Fall, History of 5 Vessel CABG. CONCLUSIONS SUMMARY: 1. Left ventricle: There is mild concentric hypertrophy. Systolic function is normal by the biplane method of disks. The estimated ejection fraction is 58%. There are no regional wall motion abnormalities. Features are consistent with a pseudonormal left ventricular filling pattern, with concomitant abnormal relaxation and increased filling pressure (grade 2 diastolic dysfunction). The ratio of mitral valve peak E velocity to average of medial and lateral annular early diastolic velocity is 25.6. 2. Left atrium: The atrium is moderately dilated. 3. Mitral valve: Mildly to moderately calcified annulus. There is mild, 1+ regurgitation. 4. Aortic valve: There is moderate, 2+ regurgitation. 5. Tricuspid valve: There is mild, 1+ regurgitation. STUDY DATA: Complete transthoracic echocardiogram. Procedure: Image quality was adequate. The study was technically limited due to body habitus. Intravenous imaging enhancement (Definity) was administered to opacify the chamber. Definity lot #: [id number]. M-mode, complete 2D, complete spectral Doppler, and color flow Doppler images were acquired and archived for permanent storage and are available for subsequent review. Study status: Routine. Patient status: Inpatient. Ultrasound Report FINDINGS LEFT VENTRICLE: The cavity size is normal. There is mild concentric hypertrophy. Systolic function is normal by the biplane method of disks. The estimated ejection fraction is 58%. There are no regional wall motion abnormalities. Features are consistent with a pseudonormal left ventricular filling pattern, with concomitant abnormal relaxation and increased filling pressure (grade 2 diastolic dysfunction). E/e' average: 25.6 RIGHT VENTRICLE: The cavity size is normal. Systolic function is normal. Right ventricular systolic pressure is within the normal range. VENTRICULAR SEPTUM: There is no evidence of a ventricular septal defect. LEFT ATRIUM: The atrium is moderately dilated. RIGHT ATRIUM: The atrium is normal in size. ATRIAL SEPTUM: Color Doppler shows no shunt. MITRAL VALVE: Mildly to moderately calcified annulus. Doppler: There is mild, 1+ regurgitation. The peak diastolic gradient is 6 mm Hg. AORTIC VALVE: Structurally normal valve. Trileaflet. Doppler: There is moderate, 2+ regurgitation. The peak systolic gradient is 9 mm Hg. The peak systolic velocity is 1.5 m/sec. TRICUSPID VALVE: Structurally normal valve. Doppler: There is mild, 1+ regurgitation. PULMONIC VALVE: Structurally normal valve. Doppler: There is trivial, less than 1+ regurgitation. AORTA: The aorta is normal. PULMONARY ARTERY: Main pulmonary artery: Normal. PERICARDIUM: There is no pericardial effusion. SYSTEMIC VEINS: Inferior vena cava: The vessel is normal. The IVC collapses by greater than 50% with inspiration. Measurements Value Reference Aortic root ID 2.5 cm <3.9 Aortic root ID, STJ, ED (L) 1.6 cm 2.3 - 3.5 Aortic root ID/bsa, STJ, ED (L) 0.9 cm/m^2 1.1 - 1.9 Value Reference Ascending aorta ID, A-P, S 2.3 cm Ascending aorta ID/bsa, A-P, S 1.3 cm/m^2 Left ventricle Value Reference LV ID, ED 4.4 cm 4.2 - 5.8 LV ID, ES 3.2 cm 2.5 - 4.0 LV ID/bsa, ED 2.6 cm/m^2 2.2 - 3.0 LV ID/bsa, ES 1.9 cm/m^2 1.3 - 2.1 LV PW thickness, ED (H) 1.1 cm 0.6 - 1.0 LV PW/LV ID ratio, ED 0.25 LV wall mass 156 g 96 - 200 LV wall mass/bsa 92 g/m^2 50 - 102 Stroke volume/bsa, 1-p A2C 47.3 ml/m^2 LV end-diastolic volume, 1-p A4C 114 ml 69 - 185 LV end-systolic volume, 1-p A4C 53 ml 22 - 78 LV end-diastolic volume, 2-p 125 ml 62 - 150 LV end-systolic volume, 2-p 53 ml 21 - 61 LV ejection fraction, 2-p 58 % 52 - 72 LV E/e', lateral 18.5 Ultrasound Rep (more content not included)... Normal [facility] Folateon 11-11-2020 Folate 13.5 ng/mL Normal 2.8-20.0 [facility] Comment on above: Performed By: #### P HOS3, TSH5, MG3, FOLT3, BMP3, B12, HEMDF ####[facility] [employer] [id number] [place], [place] #### VD25H ####[facility] [place] [address] FolateOrdered By: Cedric peraza on 11-11-2020 Folate 13.5 ng/mL 2.8 - 20.0 ng/mL [facility] Work Phone: Hemogram w/ Autodiffon 11-11 Abs Baso Cnt 0.1 10*3/uL Normal 0.0-0.2 [facility] Comment on above: Performed By: #### P HOS3, TSH5, MG3, FOLT3, BMP3, B12, HEMDF ####[facility] [employer] [address] #### VD25H ####[facility] [employer] [id number] [facility]ly [facility] [place] [address] Abs Neutrophile Cnt 7.5 10*3/uL High 1.8-7.0 [facility] Comment on above: Performed By: #### P HOS3, TSH5, MG3, FOLT3, BMP3, B12, HEMDF ####[facility] [employer] [address] #### VD25H ####[facility] [employer] [address] [place] [address] Erythrocyte distribution width (RBC) [Ratio] 13.2 % Normal 11.5-14.5 [facility] Comment on above: Performed By: #### P HOS3, TSH5, MG3, FOLT3, BMP3, B12, HEMDF ####[facility] [employer] [address] #### VD25H ####[place] [address] [place] [address] Hemoglobin (Bld) [Mass/Vol] 12.4 g/dL Low 13.0-18.0 [facility] Comment on above: Performed By: #### P HOS3, TSH5, MG3, FOLT3, BMP3, B12, HEMDF ####[address] #### VD25H ####[address] [place] [address] MCHC 32.4 % Normal 32.0-36.0 [facility] Comment on above: Performed By: #### P HOS3, TSH5, MG3, FOLT3, BMP3, B12, HEMDF ####[address] #### VD25H ####[address] [place] [address] Hemogram w/ AutodiffOrdered By: Cedric Jane on 11-11-2020 Basophils/100 WBC (Bld) 0.8 % Normal 0.0-2.0 [facility] Work Phone: Comment on above: Performed By: #### P HOS3, TSH5, MG3, FOLT3, BMP3, B12, HEMDF ####[address] #### VD25H ####[address] [place] [address] Eosinophils (Bld) [#/Vol] 0.1 10*3/uL Normal 0.0-0.5 [facility] Work Phone: Comment on above: Performed By: #### P HOS3, TSH5, MG3, FOLT3, BMP3, B12, HEMDF ####[address] #### VD25H ####[address] [place] [address] Eosinophils/100 WBC (Bld) 1.0 % Normal 1.0-6.0 [facility] Work Phone: [phone] Comment on above: Performed By: #### P HOS3, TSH5, MG3, FOLT3, BMP3, B12, HEMDF ####[employer] [place], [place] #### VD25H ####[employer] [facility] [place] [address] Granulocytes/100 WBC (Bld) 76.8 % Normal 40.0-80.0 [facility] Work Phone: [phone] Comment on above: Performed By: #### P HOS3, TSH5, MG3, FOLT3, BMP3, B12, HEMDF ####[employer] [place] [address] #### VD25H ####[employer] [place] [address] [place] [address] Hematocrit (Bld) [Volume fraction] 38.1 % Low 40.0-52.0 [facility] Work Phone: [phone] Comment on above: Performed By: #### P HOS3, TSH5, MG3, FOLT3, BMP3, B12, HEMDF ####[employer] [place] [address] #### VD25H ####[employer] [place] [address] [place] [address] Lymphocytes (Bld) [#/Vol] 1.1 10*3/uL Normal 1.0-4.3 [facility] Work Phone: Comment on above: Performed By: #### P HOS3, TSH5, MG3, FOLT3, BMP3, B12, HEMDF ####[employer] [place] [address] #### VD25H ####[employer] [place] [address] [place] [address] Lymphocytes/100 WBC (Bld) 10.8 % Low 20.0-40.0 [facility] Work Phone: [phone] Comment on above: Performed By: #### P HOS3, TSH5, MG3, FOLT3, BMP3, B12, HEMDF ####[facility] [address] #### VD25H ####[facility] [employer] [address] [place] [address] MCH (RBC) [Entitic mass] 30.7 pg Normal 26.0-34.0 [facility] Work Phone: Comment on above: Performed By: #### P HOS3, TSH5, MG3, FOLT3, BMP3, B12, HEMDF ####[facility] [address] #### VD25H ####[facility] [employer] [address] [place] [address] MCV (RBC) [Entitic vol] 94.5 fL Normal 80.0-98.0 [facility] Work Phone: [phone] Comment on above: Performed By: #### P HOS3, TSH5, MG3, FOLT3, BMP3, B12, HEMDF ####[facility] [employer] [address] #### VD25H ####[facility] [employer] [address] [place] [address] Monocytes (Bld) [#/Vol] 1.0 10*3/uL High 0.0-0.8 [facility] Work Phone: [phone] Comment on above: Performed By: #### P HOS3, TSH5, MG3, FOLT3, BMP3, B12, HEMDF ####[employer] [address] #### VD25H ####[facility] [employer] [address] [place] [address] Monocytes/100 WBC (Bld) 10.6 % High 2.0-10.0 [facility] Work Phone: Comment on above: Performed By: #### P HOS3, TSH5, MG3, FOLT3, BMP3, B12, HEMDF ####[employer] [address] #### VD25H ####[employer] [address] [place] [address] Platelet mean volume (Bld) [Entitic vol] 8.6 fL Normal 7.4-10.4 [facility] Work Phone: Comment on above: Performed By: #### P HOS3, TSH5, MG3, FOLT3, BMP3, B12, HEMDF ####[employer] [place] [address] #### VD25H ####[employer] [address] [place] [address] Platelets (Bld) [#/Vol] 238 10*3/uL Normal 140-440 [facility] Work Phone: [phone] Comment on above: Performed By: #### P HOS3, TSH5, MG3, FOLT3, BMP3, B12, HEMDF ####[employer] [place] [address] #### VD25H ####[employer] [address] [place] [address] RBC (Bld) [#/Vol] 4.03 10*6/uL Low 4.40-5.90 [facility] Work Phone: [phone] Comment on above: Performed By: #### P HOS3, TSH5, MG3, FOLT3, BMP3, B12, HEMDF ####[employer] [place] [address] #### VD25H ####[employer] [address] [place] [address] WBC (Bld) [#/Vol] 9.7 10*3/uL Normal 3.6-10.7 [facility] Work Phone: Comment on above: Performed By: #### P HOS3, TSH5, MG3, FOLT3, BMP3, B12, HEMDF ####[employer] [place] [address] #### VD25H ####[employer] [address] [place] [address] MRA HEAD WO CONTRASTOrdered By: Ady Fang on 11-11-2020 Patient Name: FEI ROGERS [facility] ACCESSION EXAM DATE/TIME PROCEDURE ORDERING PROVIDER [id number] 11/11/2020 18:35 EDT MRA Head w/o Contrast [id number] ADY FLOR CPT code 55771 Reason For Exam (MRA Head w/o Contrast) [facility] Report EXAM TYPE: MRI Brain w/o Contrast, MRA Head w/o Contrast, MRA Neck w/o Contrast EXAM DATE AND TIME: 11/11/2020 6:35 PM EDT INDICATION: Subarachnoid hemorrhage, prior stroke COMPARISON: NONE TECHNIQUE: MR imaging of the brain was obtained without contrast. MRA of the neck was obtained without contrast. NASCET criteria was utilized to evaluated proximal internal carotid artery stenosis. 3-D [id number]-ztxekk MRA [place] was obtained without contrast. FINDINGS: MRI BRAIN: There is redemonstration of subarachnoid hemorrhage adjacent to the anterior left temporal lobe as well as along the right frontal convexity anteriorly, both superiorly and inferiorly. This is seen on both diffusion imaging and gradient echo imaging. A hemorrhagic contusion of the inferior right frontal lobe is also present (series 10, image 12; series 8, image 12). Additionally, small amount of layering intraventricular hemorrhage is present within the occipital horns bilaterally. There is redemonstration of bilateral subdural hygromas measuring up to 5 mm along the left cerebral convexity and 4 mm along the right cerebral convexity. No significant midline shift. There is mild prominence of ventricles and sulci compatible with mild cerebral volume loss. There is a cavum septum pellucidum et vergae. Small region of encephalomalacia and gliosis within the posterior left parietal lobe from prior insult or infarct. No cerebral evidence of intracranial mass. No acute infarction seen on the diffusion sequence. The intracranial vascular flow voids are normal in appearance. Cerebellar tonsils are in normal location. Visualized paranasal sinuses and mastoids are normal in signal. Bone marrow signal is unremarkable. Bilateral lens replacement. Magnetic Resonance Imaging Report MRA NECK: MRA of the neck demonstrates normal flow related enhancement in the bilateral common carotid, cervical internal carotid and left vertebral arteries. The right vertebral artery is hypoplastic, however there are sections of decreased flow-related enhancement within the V2 segment of the right vertebral artery, suggestive of severe stenosis. There is mild to moderate narrowing of the proximal bilateral internal carotid arteries measuring approximately 30-50 percent by NASCET criteria. MRA HEAD: At the posterior circulation, the bilateral V4 segments of the vertebral arteries are patent. The left vertebral artery is dominant. The basilar artery is patent. There is a right-sided circulation. Bilateral antique furniture repairer are patent. At the anterior circulation, bilateral intracranial carotid arteries are patent. Bilateral ophthalmic arteries are identified. Bilateral MCAs and ACAs are patent. Bilateral posterior communicating arteries are identified. No flow gap to suggest high grade stenosis. No medium or large sized aneurysm is identified. No evidence of arteriovenous malformation in the imaged field. IMPRESSION: 1. Hemorrhagic contusion of the inferior right frontal lobe. Redemonstration of scattered subarachnoid hemorrhage along the bilateral cerebral convexities, further described above. Mild layering intraventricular blood within the occipital horns. 2. No acute infarct. Small region of encephalomalacia and gliosis within the posterior left parietal lobe from prior insult or infarct. 3. 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 4. Mild to moderate narrowing of the proximal bilateral internal carotid arteries measuring approximately 30-50 percent by NASCET criteria. 5. No hemodynamically significant narrowing of the major arteries of [place] or posterior circulation. Report Dictated on --- Final --- Dictated: 11/11/2020 7:42 pm Dictating Physician: MD LANDRUM NEIL Signed Date and Time: 11/11/2020 7:58 pm Signed by: MD LANDRUM NEIL Transcribed Date and Time: 11/11/2020 7:42 [facility] Work Phone: Juan, [facility] Incoming Radiology Results From [facility] - 11/11/2020 7:59 PM EDT Patient Name: FEI ROGERS [facility] ACCESSION EXAM DATE/TIME PROCEDURE ORDERING PROVIDER [id number] 11/11/2020 18:35 EDT MRA Head w/o Contrast [id number] -ADY FANG CPT code 37005 Reason For Exam (MRA Head w/o Contrast) [facility] Report EXAM TYPE: MRI Brain w/o Contrast, MRA Head w/o Contrast, MRA Neck w/o Contrast EXAM DATE AND TIME: 11/11/2020 6:35 PM EDT INDICATION: Subarachnoid hemorrhage, prior stroke COMPARISON: NONE TECHNIQUE: MR imaging of the brain was obtained without contrast. MRA of the neck was obtained without contrast. NASCET criteria was utilized to evaluated proximal internal carotid artery stenosis. 3-D [id number] MRA of [place] was obtained without contrast. FINDINGS: MRI BRAIN: There is redemonstration of subarachnoid hemorrhage adjacent to the anterior left temporal lobe as well as along the right frontal convexity anteriorly, both superiorly and inferiorly. This is seen on both diffusion imaging and gradient echo imaging. A hemorrhagic contusion of the inferior right frontal lobe is also present (series 10, image 12; series 8, image 12). Additionally, small amount of layering intraventricular hemorrhage is present within the occipital horns bilaterally. There is redemonstration of bilateral subdural hygromas measuring up to 5 mm along the left cerebral convexity and 4 mm along the right cerebral convexity. No significant midline shift. There is mild prominence of ventricles and sulci compatible with mild cerebral volume loss. There is a cavum septum pellucidum et vergae. Small region of encephalomalacia and gliosis within the posterior left parietal lobe from prior insult or infarct. No cerebral evidence of intracranial mass. No acute infarction seen on the diffusion sequence. The intracranial vascular flow voids are normal in appearance. Cerebellar tonsils are in normal location. Visualized paranasal sinuses and mastoids are normal in signal. Bone marrow signal is unremarkable. Bilateral lens replacement. Magnetic Resonance Imaging Report MRA NECK: MRA of the neck demonstrates normal flow related enhancement in the bilateral common carotid, cervical internal carotid and left vertebral arteries. The right vertebral artery is hypoplastic, however there are sections of decreased flow-related enhancement within the V2 segment of the right vertebral artery, suggestive of severe stenosis. There is mild to moderate narrowing of the proximal bilateral internal carotid arteries measuring approximately 30-50 percent by NASCET criteria. MRA HEAD: At the posterior circulation, the bilateral V4 segments of the vertebral arteries are patent. The left vertebral artery is dominant. The basilar artery is patent. There is a right-sided circulation. Bilateral antique furniture repairer are patent. At the anterior circulation, bilateral intracranial carotid arteries are patent. Bilateral ophthalmic arteries are identified. Bilateral MCAs and ACAs are patent. Bilateral posterior communicating arteries are identified. No flow gap to suggest high grade stenosis. No medium or large sized aneurysm is identified. No evidence of arteriovenous malformation in the imaged field. IMPRESSION: 1. Hemorrhagic contusion of the inferior right frontal lobe. Redemonstration of scattered subarachnoid hemorrhage along the bilateral cerebral convexities, further described above. Mild layering intraventricular blood within the occipital horns. 2. No acute infarct. Small region of encephalomalacia and gliosis within the posterior left parietal lobe from prior insult or infarct. 3. 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 4. Mild to moderate narrowing of the proximal bilateral internal carotid arteries measuring approximately 30-50 percent by NASCET criteria. 5. No hemodynamically significant narrowing of the major arteries of [place] or posterior circulation. Report Dictated on --- Final --- Dictated: 11/11/2020 7:42 pm Dictating Physician: MD LANDRUM NEIL Signed Date and Time: 11/11/2020 7:58 pm Signed by: MD LANDRUM NEIL Transcribed Date and Time: 11/11/2020 7:42 [facility] Work Phone: MRA Head w/o Contraston 10-18 MRA Head w/o Contrast [id number] Imaging ACCESSION EXAM DATE/TIME PROCEDURE ORDERING PROVIDER [id number] 11/11/2020 18:35 EDT MRA Head w/o Contrast [id number] ADY FLOR CPT code 03364 Reason For Exam (MRA Head w/o Contrast) [facility] Report EXAM TYPE: MRI Brain w/o Contrast, MRA Head w/o Contrast, MRA Neck w/o Contrast EXAM DATE AND TIME: 11/11/2020 6:35 PM EDT INDICATION: Subarachnoid hemorrhage, prior stroke COMPARISON: NONE TECHNIQUE: MR imaging of the brain was obtained without contrast. MRA of the neck was obtained without contrast. NASCET criteria was utilized to evaluated proximal internal carotid artery stenosis. 3-D [id number] MRA of [place] was obtained without contrast. FINDINGS: MRI BRAIN: There is redemonstration of subarachnoid hemorrhage adjacent to the anterior left temporal lobe as well as along the right frontal convexity anteriorly, both superiorly and inferiorly. This is seen on both diffusion imaging and gradient echo imaging. A hemorrhagic contusion of the inferior right frontal lobe is also present (series 10, image 12; series 8, image 12). Additionally, small amount of layering intraventricular hemorrhage is present within the occipital horns bilaterally. There is redemonstration of bilateral subdural hygromas measuring up to 5 mm along the left cerebral convexity and 4 mm along the right cerebral convexity. No significant midline shift. There is mild prominence of ventricles and sulci compatible with mild cerebral volume loss. There is a cavum septum pellucidum et vergae. Small region of encephalomalacia and gliosis within the posterior left parietal lobe from prior insult or infarct. No cerebral evidence of intracranial mass. No acute infarction seen on the diffusion sequence. The intracranial vascular flow voids are normal in appearance. Cerebellar tonsils are in normal location. Visualized paranasal sinuses and mastoids are normal in signal. Bone marrow signal is unremarkable. Bilateral lens replacement. Magnetic Resonance Imaging Report MRA NECK: MRA of the neck demonstrates normal flow related enhancement in the bilateral common carotid, cervical internal carotid and left vertebral arteries. The right vertebral artery is hypoplastic, however there are sections of decreased flow-related enhancement within the V2 segment of the right vertebral artery, suggestive of severe stenosis. There is mild to moderate narrowing of the proximal bilateral internal carotid arteries measuring approximately 30-50 percent by NASCET criteria. MRA HEAD: At the posterior circulation, the bilateral V4 segments of the vertebral arteries are patent. The left vertebral artery is dominant. The basilar artery is patent. There is a right-sided circulation. Bilateral antique furniture repairer are patent. At the anterior circulation, bilateral intracranial carotid arteries are patent. Bilateral ophthalmic arteries are identified. Bilateral MCAs and ACAs are patent. Bilateral posterior communicating arteries are identified. No flow gap to suggest high grade stenosis. No medium or large sized aneurysm is identified. No evidence of arteriovenous malformation in the imaged field. IMPRESSION: 1. Hemorrhagic contusion of the inferior right frontal lobe. Redemonstration of scattered subarachnoid hemorrhage along the bilateral cerebral convexities, further described above. Mild layering intraventricular blood within the occipital horns. 2. No acute infarct. Small region of encephalomalacia and gliosis within the posterior left parietal lobe from prior insult or infarct. 3. 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 4. Mild to moderate narrowing of the proximal bilateral internal carotid arteries measuring approximately 30-50 percent by NASCET criteria. 5. No hemodynamically significant narrowing of the major arteries of the [place] or posterior circulation. Report Dictated on Final Dictated: 11/11/2020 7:42 pm Dictating Physician: MD LANDRUM NEIL Signed Date and Time: 11/11/2020 7:58 pm Signed by: MD LANDRUM NEIL Transcribed Date and Time: 11/11/2020 7:42 Normal [facility] MRA NECK WO CONTRASTOrdered By: Ady Fang on 11-11-2020 [id number] Resonance Imaging ACCESSION EXAM DATE/TIME PROCEDURE ORDERING PROVIDER [id number] 11/11/2020 18:35 EDT MRA Neck w/o Contrast [id number] ADY FLOR CPT code 07383 Reason For Exam (MRA Neck w/o Contrast) [facility], syncope, prior L CEA Report EXAM TYPE: MRI Brain w/o Contrast, MRA Head w/o Contrast, MRA Neck w/o Contrast EXAM DATE AND TIME: 11/11/2020 6:35 PM EDT INDICATION: Subarachnoid hemorrhage, prior stroke COMPARISON: NONE TECHNIQUE: MR imaging of the brain was obtained without contrast. MRA of the neck was obtained without contrast. NASCET criteria was utilized to evaluated proximal internal carotid artery stenosis. 3-D [id number] MRA of [place] was obtained without contrast. FINDINGS: MRI BRAIN: There is redemonstration of subarachnoid hemorrhage adjacent to the anterior left temporal lobe as well as along the right frontal convexity anteriorly, both superiorly and inferiorly. This is seen on both diffusion imaging and gradient echo imaging. A hemorrhagic contusion of the inferior right frontal lobe is also present (series 10, image 12; series 8, image 12). Additionally, small amount of layering intraventricular hemorrhage is present within the occipital horns bilaterally. There is redemonstration of bilateral subdural hygromas measuring up to 5 mm along the left cerebral convexity and 4 mm along the right cerebral convexity. No significant midline shift. There is mild prominence of ventricles and sulci compatible with mild cerebral volume loss. There is a cavum septum pellucidum et vergae. Small region of encephalomalacia and gliosis within the posterior left parietal lobe from prior insult or infarct. No cerebral evidence of intracranial mass. No acute infarction seen on the diffusion sequence. The intracranial vascular flow voids are normal in appearance. Cerebellar tonsils are in normal location. Visualized paranasal sinuses and mastoids are normal in signal. Bone marrow signal is unremarkable. Bilateral lens replacement. Magnetic Resonance Imaging Report MRA NECK: MRA of the neck demonstrates normal flow related enhancement in the bilateral common carotid, cervical internal carotid and left vertebral arteries. The right vertebral artery is hypoplastic, however there are sections of decreased flow-related enhancement within the V2 segment of the right vertebral artery, suggestive of severe stenosis. There is mild to moderate narrowing of the proximal bilateral internal carotid arteries measuring approximately 30-50 percent by NASCET criteria. MRA HEAD: At the posterior circulation, the bilateral V4 segments of the vertebral arteries are patent. The left vertebral artery is dominant. The basilar artery is patent. There is a right-sided circulation. Bilateral antique furniture repairer are patent. At the anterior circulation, bilateral intracranial carotid arteries are patent. Bilateral ophthalmic arteries are identified. Bilateral MCAs and ACAs are patent. Bilateral posterior communicating arteries are identified. No flow gap to suggest high grade stenosis. No medium or large sized aneurysm is identified. No evidence of arteriovenous malformation in the imaged field. IMPRESSION: 1. Hemorrhagic contusion of the inferior right frontal lobe. Redemonstration of scattered subarachnoid hemorrhage along the bilateral cerebral convexities, further described above. Mild layering intraventricular blood within the occipital horns. 2. No acute infarct. Small region of encephalomalacia and gliosis within the posterior left parietal lobe from prior insult or infarct. 3. 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 4. Mild to moderate narrowing of the proximal bilateral internal carotid arteries measuring approximately 30-50 percent by NASCET criteria. 5. No hemodynamically significant narrowing of the major arteries of the [place] or posterior circulation. Report Dictated on --- Final --- Dictated: 11/11/2020 7:42 pm Dictating Physician: MD LANDRUM NEIL Signed Date and Time: 11/11/2020 7:58 pm Signed by: MD LANDRUM NEIL Transcribed Date and Time: 11/11/2020 7:42 [facility] Work Phone: [facility], [facility] Incoming Radiology Results From [facility] - 11/11/2020 7:59 PM EDT Patient Name: FEI ROGERS Magnetic Resonance Imaging ACCESSION EXAM DATE/TIME PROCEDURE ORDERING PROVIDER [id number] 11/11/2020 18:35 EDT MRA Neck w/o Contrast [id number] [facility] CPT code 59957 Reason For Exam (MRA Neck w/o Contrast) SAH, syncope, prior L CEA Report EXAM TYPE: MRI Brain w/o Contrast, MRA Head w/o Contrast, MRA Neck w/o Contrast EXAM DATE AND TIME: 11/11/2020 6:35 PM EDT INDICATION: Subarachnoid hemorrhage, prior stroke COMPARISON: NONE TECHNIQUE: MR imaging of the brain was obtained without contrast. MRA of the neck was obtained without contrast. NASCET criteria was utilized to evaluated proximal internal carotid artery stenosis. 3-D [id number] MRA of [place] was obtained without contrast. FINDINGS: MRI BRAIN: There is redemonstration of subarachnoid hemorrhage adjacent to the anterior left temporal lobe as well as along the right frontal convexity anteriorly, both superiorly and inferiorly. This is seen on both diffusion imaging and gradient echo imaging. A hemorrhagic contusion of the inferior right frontal lobe is also present (series 10, image 12; series 8, image 12). Additionally, small amount of layering intraventricular hemorrhage is present within the occipital horns bilaterally. There is redemonstration of bilateral subdural hygromas measuring up to 5 mm along the left cerebral convexity and 4 mm along the right cerebral convexity. No significant midline shift. There is mild prominence of ventricles and sulci compatible with mild cerebral volume loss. There is a cavum septum pellucidum et vergae. Small region of encephalomalacia and gliosis within the posterior left parietal lobe from prior insult or infarct. No cerebral evidence of intracranial mass. No acute infarction seen on the diffusion sequence. The intracranial vascular flow voids are normal in appearance. Cerebellar tonsils are in normal location. Visualized paranasal sinuses and mastoids are normal in signal. Bone marrow signal is unremarkable. Bilateral lens replacement. Magnetic Resonance Imaging Report MRA NECK: MRA of the neck demonstrates normal flow related enhancement in the bilateral common carotid, cervical internal carotid and left vertebral arteries. The right vertebral artery is hypoplastic, however there are sections of decreased flow-related enhancement within the V2 segment of the right vertebral artery, suggestive of severe stenosis. There is mild to moderate narrowing of the proximal bilateral internal carotid arteries measuring approximately 30-50 percent by NASCET criteria. MRA HEAD: At the posterior circulation, the bilateral V4 segments of the vertebral arteries are patent. The left vertebral artery is dominant. The basilar artery is patent. There is a right-sided circulation. Bilateral antique furniture repairer are patent. At the anterior circulation, bilateral intracranial carotid arteries are patent. Bilateral ophthalmic arteries are identified. Bilateral MCAs and ACAs are patent. Bilateral posterior communicating arteries are identified. No flow gap to suggest high grade stenosis. No medium or large sized aneurysm is identified. No evidence of arteriovenous malformation in the imaged field. IMPRESSION: 1. Hemorrhagic contusion of the inferior right frontal lobe. Redemonstration of scattered subarachnoid hemorrhage along the bilateral cerebral convexities, further described above. Mild layering intraventricular blood within the occipital horns. 2. No acute infarct. Small region of encephalomalacia and gliosis within the posterior left parietal lobe from prior insult or infarct. 3. 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 4. Mild to moderate narrowing of the proximal bilateral internal carotid arteries measuring approximately 30-50 percent by NASCET criteria. 5. No hemodynamically significant narrowing of the major arteries of the [place] or posterior circulation. Report Dictated on --- Final --- Dictated: 11/11/2020 7:42 pm Dictating Physician: MD LANDRUM NEIL Signed Date and Time: 11/11/2020 7:58 pm Signed by: MD LANDRUM NEIL Transcribed Date and Time: 11/11/2020 7:42 [facility] Work Phone: MRA Neck w/o Contraston 04- MRA Neck w/o Contrast Patient Name: FEI HIDALGO Magnetic Resonance Imaging ACCESSION EXAM DATE/TIME PROCEDURE ORDERING PROVIDER [id number] 11/11/2020 18:35 EDT MRA Neck w/o Contrast 344659 [facility] CPT code 84709 Reason For Exam (MRA Neck w/o Contrast) SAH, syncope, prior L CEA Report EXAM TYPE: MRI Brain w/o Contrast, MRA Head w/o Contrast, MRA Neck w/o Contrast EXAM DATE AND TIME: 11/11/2020 6:35 PM EDT INDICATION: Subarachnoid hemorrhage, prior stroke COMPARISON: NONE TECHNIQUE: MR imaging of the brain was obtained without contrast. MRA of the neck was obtained without contrast. NASCET criteria was utilized to evaluated proximal internal carotid artery stenosis. 3-D [id number] MRA of the [place] was obtained without contrast. FINDINGS: MRI BRAIN: There is redemonstration of subarachnoid hemorrhage adjacent to the anterior left temporal lobe as well as along the right frontal convexity anteriorly, both superiorly and inferiorly. This is seen on both diffusion imaging and gradient echo imaging. A hemorrhagic contusion of the inferior right frontal lobe is also present (series 10, image 12; series 8, image 12). Additionally, small amount of layering intraventricular hemorrhage is present within the occipital horns bilaterally. There is redemonstration of bilateral subdural hygromas measuring up to 5 mm along the left cerebral convexity and 4 mm along the right cerebral convexity. No significant midline shift. There is mild prominence of ventricles and sulci compatible with mild cerebral volume loss. There is a cavum septum pellucidum et vergae. Small region of encephalomalacia and gliosis within the posterior left parietal lobe from prior insult or infarct. No cerebral evidence of intracranial mass. No acute infarction seen on the diffusion sequence. The intracranial vascular flow voids are normal in appearance. Cerebellar tonsils are in normal location. Visualized paranasal sinuses and mastoids are normal in signal. Bone marrow signal is unremarkable. Bilateral lens replacement. Magnetic Resonance Imaging Report MRA NECK: MRA of the neck demonstrates normal flow related enhancement in the bilateral common carotid, cervical internal carotid and left vertebral arteries. The right vertebral artery is hypoplastic, however there are sections of decreased flow-related enhancement within the V2 segment of the right vertebral artery, suggestive of severe stenosis. There is mild to moderate narrowing of the proximal bilateral internal carotid arteries measuring approximately 30-50 percent by NASCET criteria. MRA HEAD: At the posterior circulation, the bilateral V4 segments of the vertebral arteries are patent. The left vertebral artery is dominant. The basilar artery is patent. There is a right-sided circulation. Bilateral antique furniture repairer are patent. At the anterior circulation, bilateral intracranial carotid arteries are patent. Bilateral ophthalmic arteries are identified. Bilateral MCAs and ACAs are patent. Bilateral posterior communicating arteries are identified. No flow gap to suggest high grade stenosis. No medium or large sized aneurysm is identified. No evidence of arteriovenous malformation in the imaged field. IMPRESSION: 1. Hemorrhagic contusion of the inferior right frontal lobe. Redemonstration of scattered subarachnoid hemorrhage along the bilateral cerebral convexities, further described above. Mild layering intraventricular blood within the occipital horns. 2. No acute infarct. Small region of encephalomalacia and gliosis within the posterior left parietal lobe from prior insult or infarct. 3. 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 4. Mild to moderate narrowing of the proximal bilateral internal carotid arteries measuring approximately 30-50 percent by NASCET criteria. 5. No hemodynamically significant narrowing of the major arteries of the [place] or posterior circulation. Report Dictated on Final Dictated: 11/11/2020 7:42 pm Dictating Physician: MD LANDRUM NEIL Signed Date and Time: 11/11/2020 7:58 pm Signed by: MD LANDRUM NEIL Transcribed Date and Time: 11/11/2020 7:42 Normal [facility] MRI BRAIN WO CONTRASTOrdered By: Ady Fang on 11-11-2020 Patient Name: FEI ROGERS Magnetic Resonance Imaging ACCESSION EXAM DATE/TIME PROCEDURE ORDERING PROVIDER [id number] 11/11/2020 18:35 EDT MRI Brain w/o Contrast [id number] [facility] CPT code 53919 Reason For Exam (MRI Brain w/o Contrast) SAH, prior stroke Report EXAM TYPE: MRI Brain w/o Contrast, MRA Head w/o Contrast, MRA Neck w/o Contrast EXAM DATE AND TIME: 11/11/2020 6:35 PM EDT INDICATION: Subarachnoid hemorrhage, prior stroke COMPARISON: NONE TECHNIQUE: MR imaging of the brain was obtained without contrast. MRA of the neck was obtained without contrast. NASCET criteria was utilized to evaluated proximal internal carotid artery stenosis. 3-D [id number] MRA of the [place] was obtained without contrast. FINDINGS: MRI BRAIN: There is redemonstration of subarachnoid hemorrhage adjacent to the anterior left temporal lobe as well as along the right frontal convexity anteriorly, both superiorly and inferiorly. This is seen on both diffusion imaging and gradient echo imaging. A hemorrhagic contusion of the inferior right frontal lobe is also present (series 10, image 12; series 8, image 12). Additionally, small amount of layering intraventricular hemorrhage is present within the occipital horns bilaterally. There is redemonstration of bilateral subdural hygromas measuring up to 5 mm along the left cerebral convexity and 4 mm along the right cerebral convexity. No significant midline shift. There is mild prominence of ventricles and sulci compatible with mild cerebral volume loss. There is a cavum septum pellucidum et vergae. Small region of encephalomalacia and gliosis within the posterior left parietal lobe from prior insult or infarct. No cerebral evidence of intracranial mass. No acute infarction seen on the diffusion sequence. The intracranial vascular flow voids are normal in appearance. Cerebellar tonsils are in normal location. Visualized paranasal sinuses and mastoids are normal in signal. Bone marrow signal is unremarkable. Bilateral lens replacement. Magnetic Resonance Imaging Report MRA NECK: MRA of the neck demonstrates normal flow related enhancement in the bilateral common carotid, cervical internal carotid and left vertebral arteries. The right vertebral artery is hypoplastic, however there are sections of decreased flow-related enhancement within the V2 segment of the right vertebral artery, suggestive of severe stenosis. There is mild to moderate narrowing of the proximal bilateral internal carotid arteries measuring approximately 30-50 percent by NASCET criteria. MRA HEAD: At the posterior circulation, the bilateral V4 segments of the vertebral arteries are patent. The left vertebral artery is dominant. The basilar artery is patent. There is a right-sided circulation. Bilateral antique furniture repairer are patent. At the anterior circulation, bilateral intracranial carotid arteries are patent. Bilateral ophthalmic arteries are identified. Bilateral MCAs and ACAs are patent. Bilateral posterior communicating arteries are identified. No flow gap to suggest high grade stenosis. No medium or large sized aneurysm is identified. No evidence of arteriovenous malformation in the imaged field. IMPRESSION: 1. Hemorrhagic contusion of the inferior right frontal lobe. Redemonstration of scattered subarachnoid hemorrhage along the bilateral cerebral convexities, further described above. Mild layering intraventricular blood within the occipital horns. 2. No acute infarct. Small region of encephalomalacia and gliosis within the posterior left parietal lobe from prior insult or infarct. 3. 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 4. Mild to moderate narrowing of the proximal bilateral internal carotid arteries measuring approximately 30-50 percent by NASCET criteria. 5. No hemodynamically significant narrowing of the major arteries of the [place] or posterior circulation. Report Dictated on --- Final --- Dictated: 11/11/2020 7:42 pm Dictating Physician: MD LANDRUM NEIL Signed Date and Time: 11/11/2020 7:58 pm Signed by: MD LANDRUM NEIL Transcribed Date and Time: 11/11/2020 7:42 [facility] Work Phone: [facility], [facility] Incoming Radiology Results From [facility] - 11/11/2020 7:59 PM EDT [id number] Imaging ACCESSION EXAM DATE/TIME PROCEDURE ORDERING PROVIDER [id number] 11/11/2020 18:35 EDT MRI Brain w/o Contrast 521975 [facility] CPT code 84079 Reason For Exam (MRI Brain w/o Contrast) SAH, prior stroke Report EXAM TYPE: MRI Brain w/o Contrast, MRA Head w/o Contrast, MRA Neck w/o Contrast EXAM DATE AND TIME: 11/11/2020 6:35 PM EDT INDICATION: Subarachnoid hemorrhage, prior stroke COMPARISON: NONE TECHNIQUE: MR imaging of the brain was obtained without contrast. MRA of the neck was obtained without contrast. NASCET criteria was utilized to evaluated proximal internal carotid artery stenosis. 3-D [id number] MRA of the [place] was obtained without contrast. FINDINGS: MRI BRAIN: There is redemonstration of subarachnoid hemorrhage adjacent to the anterior left temporal lobe as well as along the right frontal convexity anteriorly, both superiorly and inferiorly. This is seen on both diffusion imaging and gradient echo imaging. A hemorrhagic contusion of the inferior right frontal lobe is also present (series 10, image 12; series 8, image 12). Additionally, small amount of layering intraventricular hemorrhage is present within the occipital horns bilaterally. There is redemonstration of bilateral subdural hygromas measuring up to 5 mm along the left cerebral convexity and 4 mm along the right cerebral convexity. No significant midline shift. There is mild prominence of ventricles and sulci compatible with mild cerebral volume loss. There is a cavum septum pellucidum et vergae. Small region of encephalomalacia and gliosis within the posterior left parietal lobe from prior insult or infarct. No cerebral evidence of intracranial mass. No acute infarction seen on the diffusion sequence. The intracranial vascular flow voids are normal in appearance. Cerebellar tonsils are in normal location. Visualized paranasal sinuses and mastoids are normal in signal. Bone marrow signal is unremarkable. Bilateral lens replacement. Magnetic Resonance Imaging Report MRA NECK: MRA of the neck demonstrates normal flow related enhancement in the bilateral common carotid, cervical internal carotid and left vertebral arteries. The right vertebral artery is hypoplastic, however there are sections of decreased flow-related enhancement within the V2 segment of the right vertebral artery, suggestive of severe stenosis. There is mild to moderate narrowing of the proximal bilateral internal carotid arteries measuring approximately 30-50 percent by NASCET criteria. MRA HEAD: At the posterior circulation, the bilateral V4 segments of the vertebral arteries are patent. The left vertebral artery is dominant. The basilar artery is patent. There is a right-sided circulation. Bilateral antique furniture repairer are patent. At the anterior circulation, bilateral intracranial carotid arteries are patent. Bilateral ophthalmic arteries are identified. Bilateral MCAs and ACAs are patent. Bilateral posterior communicating arteries are identified. No flow gap to suggest high grade stenosis. No medium or large sized aneurysm is identified. No evidence of arteriovenous malformation in the imaged field. IMPRESSION: 1. Hemorrhagic contusion of the inferior right frontal lobe. Redemonstration of scattered subarachnoid hemorrhage along the bilateral cerebral convexities, further described above. Mild layering intraventricular blood within the occipital horns. 2. No acute infarct. Small region of encephalomalacia and gliosis within the posterior left parietal lobe from prior insult or infarct. 3. 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 4. Mild to moderate narrowing of the proximal bilateral internal carotid arteries measuring approximately 30-50 percent by NASCET criteria. 5. No hemodynamically significant narrowing of the major arteries of the [place] or posterior circulation. Report Dictated on --- Final --- Dictated: 11/11/2020 7:42 pm Dictating Physician: MD LANDRUM NEIL Signed Date and Time: 11/11/2020 7:58 pm Signed by: MD LANDRUM NEIL Transcribed Date and Time: 11/11/2020 7:42 [facility] Work Phone: MRI Brain w/o Contraston MRI Brain w/o Contrast Patient Name: FEI ROGERS [facility]#: [id number] Magnetic Resonance Imaging ACCESSION EXAM DATE/TIME PROCEDURE ORDERING PROVIDER [id number] 11/11/2020 18:35 EDT MRI Brain w/o Contrast [id number] [facility] CPT code 01672 Reason For Exam (MRI Brain w/o Contrast) SAH, prior stroke Report EXAM TYPE: MRI Brain w/o Contrast, MRA Head w/o Contrast, MRA Neck w/o Contrast EXAM DATE AND TIME: 11/11/2020 6:35 PM EDT INDICATION: Subarachnoid hemorrhage, prior stroke COMPARISON: NONE TECHNIQUE: MR imaging of the brain was obtained without contrast. MRA of the neck was obtained without contrast. NASCET criteria was utilized to evaluated proximal internal carotid artery stenosis. 3-D [id number] MRA of the [place] was obtained without contrast. FINDINGS: MRI BRAIN: There is redemonstration of subarachnoid hemorrhage adjacent to the anterior left temporal lobe as well as along the right frontal convexity anteriorly, both superiorly and inferiorly. This is seen on both diffusion imaging and gradient echo imaging. A hemorrhagic contusion of the inferior right frontal lobe is also present (series 10, image 12; series 8, image 12). Additionally, small amount of layering intraventricular hemorrhage is present within the occipital horns bilaterally. There is redemonstration of bilateral subdural hygromas measuring up to 5 mm along the left cerebral convexity and 4 mm along the right cerebral convexity. No significant midline shift. There is mild prominence of ventricles and sulci compatible with mild cerebral volume loss. There is a cavum septum pellucidum et vergae. Small region of encephalomalacia and gliosis within the posterior left parietal lobe from prior insult or infarct. No cerebral evidence of intracranial mass. No acute infarction seen on the diffusion sequence. The intracranial vascular flow voids are normal in appearance. Cerebellar tonsils are in normal location. Visualized paranasal sinuses and mastoids are normal in signal. Bone marrow signal is unremarkable. Bilateral lens replacement. Magnetic Resonance Imaging Report MRA NECK: MRA of the neck demonstrates normal flow related enhancement in the bilateral common carotid, cervical internal carotid and left vertebral arteries. The right vertebral artery is hypoplastic, however there are sections of decreased flow-related enhancement within the V2 segment of the right vertebral artery, suggestive of severe stenosis. There is mild to moderate narrowing of the proximal bilateral internal carotid arteries measuring approximately 30-50 percent by NASCET criteria. MRA HEAD: At the posterior circulation, the bilateral V4 segments of the vertebral arteries are patent. The left vertebral artery is dominant. The basilar artery is patent. There is a right-sided circulation. Bilateral antique furniture repairer are patent. At the anterior circulation, bilateral intracranial carotid arteries are patent. Bilateral ophthalmic arteries are identified. Bilateral MCAs and ACAs are patent. Bilateral posterior communicating arteries are identified. No flow gap to suggest high grade stenosis. No medium or large sized aneurysm is identified. No evidence of arteriovenous malformation in the imaged field. IMPRESSION: 1. Hemorrhagic contusion of the inferior right frontal lobe. Redemonstration of scattered subarachnoid hemorrhage along the bilateral cerebral convexities, further described above. Mild layering intraventricular blood within the occipital horns. 2. No acute infarct. Small region of encephalomalacia and gliosis within the posterior left parietal lobe from prior insult or infarct. 3. 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 4. Mild to moderate narrowing of the proximal bilateral internal carotid arteries measuring approximately 30-50 percent by NASCET criteria. 5. No hemodynamically significant narrowing of the major arteries of [place] or posterior circulation. Report Dictated on Final Dictated: 11/11/2020 7:42 pm Dictating Physician: MD LANDRUM NEIL Signed Date and Time: 11/11/2020 7:58 pm Signed by: MD LANDRUM NEIL Transcribed Date and Time: 11/11/2020 7:42 Normal [facility] Magnesiumon 11-11-2020 Magnesium [Mass/Vol] 1.9 mg/dL Normal 1.6-2.3 [facility] Comment on above: Performed By: #### P HOS3, TSH5, MG3, FOLT3, BMP3, B12, HEMDF ####[facility] [employer] [id number] [place] [address]#### VD25H ####[facility] [employer] [id number] [facility] [place] [address] MagnesiumOrdered By: Cedric Jane on 11-11-2020 Magnesium [Mass/Vol] 1.9 mg/dL 1.6 - 2 .3 mg/dL [facility] Work Phone: [phone] Panel InformationOrdered By: Cedric Jane on 11-11-2020 Test Performed by [facility], [address] [place] [address] [facility] Work Phone: [phone] Interpretation and review of laboratory results Abnormal [facility] Work Phone: Test Performed by [facility], [address] [place] [address] [facility] Work Phone: [phone] Phosphoruson 11-11-2020 Phosphate [Mass/Vol] 3.8 mg/dL Normal 2.5-4.5 [facility] [employer] System Comment on above: Performed By: #### P HOS3, TSH5, MG3, FOLT3, BMP3, B12, HEMDF ####[facility] [employer] [id number] [place] [address]#### VD25H ####[facility] [employer] [id number] [facility] [place] [address] PhosphorusOrdered By: Cedric Jane on 11-11-2020 Phosphate [Mass/Vol] 3.8 mg/dL 2.5 - 4 .5 mg/dL [facility] Work Phone: [phone] TSH without ReflexOrdered By : Cedric Jane on 11-11-2020 TSH Qn 1.216 u[IU]/mL 0.465 - 4.680 u[IU]/mL [facility] Work Phone: [phone] Test Performed by [facility], [address] [place] [address] [facility] Work Phone: [phone] Thyroid Stim. Hormoneon 10-18 Thyroid Stim. Hormone 1.216 u[IU]/mL Normal 0.46 5-4.68 0 [facility] [employer] Comment on above: Performed By: #### P HOS3, TSH5, MG3, FOLT3, BMP3, B12, HEMDF ####[facility] [id number] [place] [address]#### VD25H ####[facility] [id number] [place] [address] UrinalysisOrdered By: Amy Ortez on 11-11-2020 Appearance (U) Clear Clear NA [facility] Work Phone: [phone] Comment on above: . Bacteria, UA Few Abnormal Negative /[HPF] [facility] Work Phone: [phone] Comment on above: . Bilirubin Urine Negative Negative mg/dL [facility] Work Phone: [phone] Comment on above: . Color (U) Light-Yellow Lt. Yellow NA [facility] Work Phone: [phone] Comment on above: . Glucose, Ur Normal Normal (<70) mg/dL [facility] Work Phone: [phone] Comment on above: . Hyaline Casts, UA 0-2 Abnormal Negative /[LPF] [facility] Work Phone: [phone] Comment on above: . Interpretation and review of laboratory results Abnormal [facility] Work Phone: [phone] Ketones Ql (U) Negative Negative mg/dL [facility] Work Phone: [phone] Comment on above: . LEUKOCYTES, UA Negative Negative Aquilino/uL [facility] Work Phone: [phone] Comment on above: . Mucous Threads Few Negative /[LPF] [facility] Work Phone: [phone]- Comment on above: . Nitrite, Urine Negative Negative NA [facility] Work Phone: [phone]- Comment on above: . Occult Blood,Urine Negative Negative mg/dL [facility] Work Phone: [phone] Comment on above: . pH (U) 5.0 [pH] [facility] Work Phone: [phone] Comment on above: . Protein (U) [Mass/Vol] 10 mg/dL Abnormal Negative [facility] Work Phone: [phone] Comment on above: . RBC (U) [#/Vol] Negative 0 - 2 /[HPF] [facility] Work Phone: [phone] Comment on above: . Specific [place], Urine 1.013 [facility] Work Phone: [phone] Comment on above: . Squam Epithel, UA Negative 3 - 5 /[HPF] [facility] Work Phone: [phone] Comment on above: . Urobilinogen, Urine Normal Normal (0-1) mg/dL [facility] Work Phone: Comment on above: . WBC, UA 0-2 0 - 5 /[HPF] [facility] Work Phone: [phone] Comment on above: . Test Performed by [facility], [address] [place] [address] [facility] Work Phone: VITAMIN D 25 HYDROXYOrdered By: Cedric Jane on 11-11-2020 Vit D, 25-Hydroxy 56 ng/mL 30 - 100 ng/mL [facility] Work Phone: Comment on above: Therapy is based on measurement of Total 25-OHD with the following classification levels: Less than 20 ng/mL: Indicative of Vit D deficiency 20-30 ng/mL: Suggests Vit D insufficiency Optimal: Greater than or equal to 30 ng/mL Test performed by [employer], measuring Total Vitamin D, not individual fractions. Test Performed by [facility], [address] [place], [place] [address] [facility] Work Phone: Vit D 25-OH, Totalon 021 Vit D 25-OH, Total 56 ng/mL Normal 30-100 [facility] Comment on above: Result Comment: Ther apy is based on measurement of Total 25- OHD with the following classification levels: Less than 20 ng/mL: Indicative of Vit D deficiency 20-30 ng/mL: Suggests Vit D insufficiency Optimal: Greater than or equal to 30 ng/mL Test performed by [employer] Immun[employer], measuring Total Vitamin D, not individual fractions. Performed By: #### P HOS3, TSH5, MG3, FOLT3, BMP3, B12, HEMDF ####[facility] [place], [place] #### VD25H ####[facility] [place] [address] Vitamin B12on 11-11-2020 Cobalamin (Vitamin B12) [Mass/Vol] 356 pg/mL Normal 239-931 [facility] Comment on above: Performed By: #### P HOS3, TSH5, MG3, FOLT3, BMP3, B12, HEMDF ####[facility] [employer] [id number] [place] [address]#### VD25H ####[facility] [employer] [id number] [facility] [place] [address] Vitamin [id number] By: Vargas Jane on 11-11-2020 Cobalamin (Vitamin B12) [Mass/Vol] 356 pg/mL 239 - 931 pg/mL [facility] Work Phone: Basic Metabolic Panelon 10-18 Calcium [Mass/Vol] 9.1 mg/dL Normal 8.4-10.4 [facility] [employer] [facility] Comment on above: Performed By: #### P T/AP, HEMOG, BMP3M #### [facility] [employer] [facility] [address] [place] [address] GFR/1.73 sq M.predicted among non-blacks MDRD (S/P/Bld) [Vol rate/Area] 42.4 mL/min/{1.73_m2} Abnormal >60 [facility] Comment on above: Result Comment: KDIG O guidelines provide the following GFR categories: Stage GFR(ml/min/1.73 m2) Terms G1 >=90 Normal or high G2 60-89 Mildly decreased* G3a 45-59 Mildly to moderately decreased G3b 30-44 Moderately to severely decreased G4 15-29 Severely decreased G5 <15 Kidney failure *Relative to young adult level. In the absence of evidence of kidney damage, neither GFR category G1 nor G2 fulfill the criteria for CKD. The CKD-EPI equation is validated in individuals 18 years of age and older. Currently the best equation for estimating glomerular filtration rate (GFR) from serum creatinine in children is the Bedside Frankel equation. It is less accurate in patients with extremes of muscle mass, restriction of dietary protein, ingestion of creatine, extra-renal metabolism of creatinine, or treatment with medications that affect renal tubular creatinine secretion. Performed By: #### P T/AP, HEMOG, BMP3M #### [place] [address] [place] [place] Urea nitrogen [Mass/Vol] 40 mg/dL High 7-20 [facility] Comment on above: Performed By: #### P T/AP, HEMOG, BMP3M #### [place] [address] [place] Chloride [Moles/Vol] 105 mmol/L Normal 98-107 [facility] Comment on above: Performed By: #### P T/AP, HEMOG, BMP3M #### [place] [address] [place] Potassium [Moles/Vol] 4.4 mmol/L Normal 3.5-5.1 [facility] Comment on above: Performed By: #### P T/AP, HEMOG, BMP3M #### [place] [address] [place] Sodium [Moles/Vol] 139 mmol/L Normal 135-145 [facility] Comment on above: Performed By: #### P T/AP, HEMOG, BMP3M #### [place] [address] [place] Basic Metabolic PanelOrdered By: Ady Deras on 11-10-2020 Anion gap [Moles/Vol] 11 mmol/L Normal 3-13 [facility] Work Phone: Comment on above: Performed By: #### P T/AP, HEMOG, BMP3M #### [place] [address] [place] CO2 [Moles/Vol] 23 mmol/L Normal 22-30 [facility] Work Phone: Comment on above: Performed By: #### P T/AP, HEMOG, BMP3M #### [place] [address] [place] Creatinine [Mass/Vol] 1.49 mg/dL High 0.52-1.25 [facility] Work Phone: Comment on above: Performed By: #### P T/AP, HEMOG, BMP3M #### [facility] [address] [place] GFR/1.73 sq M.predicted among blacks MDRD (S/P/Bld) [Vol rate/Area] 49.1 mL/min/{1.73_m2} Abnormal >60 [facility] Work Phone: Comment on above: Performed By: #### P T/AP, HEMOG, BMP3M #### [facility] [address] [place], [place] Glucose [Mass/Vol] 128 mg/dL High 70-100 [facility] Work Phone: Comment on above: Performed By: #### P T/AP, HEMOG, BMP3M #### [facility] [place] [place] [address] Basic Metabolic Panel w/ Ref warren to MGOrdered By: Ady Deras on 11-10-2020 Calcium [Mass/Vol] 9.1 mg/dL 8.4 - 10. 4 mg/dL [facility] Work Phone: Chloride [Moles/Vol] 105 mmol/L 98 - 10 7 mmol/L [facility] Work Phone: EGFR IF NonAfrican Romanian 42.4 mL/min Abnormal >60 [facility] Work Phone: Comment on above: KDIGO guidelines pro vide the following GFR categories: Stage GFR(ml/min/1.73 m2) Terms G1 >=90 Normal or high G2 60-89 Mildly decreased* G3a 45-59 Mildly to moderately decreased G3b 30-44 Moderately to severely decreased G4 15-29 Severely decreased G5 <15 Kidney failure *Relative to young adult level. In the absence of evidence of kidney damage, neither GFR category G1 nor G2 fulfill the criteria for CKD. The CKD-EPI equation is validated in individuals 18 years of age and older. Currently the best equation for estimating glomerular filtration rate (GFR) from serum creatinine in children is the Bedside Frankel equation. It is less accurate in patients with extremes of muscle mass, restriction of dietary protein, ingestion of creatine, extra-renal metabolism of creatinine, or treatment with medications that affect renal tubular creatinine secretion. Interpretation and review of laboratory results Abnormal [facility] Work Phone: Potassium [Moles/Vol] 4.4 mmol/L 3.5 - 5.1 mmol/L [facility] Work Phone: Sodium [Moles/Vol] 139 mmol/L 135 - 145 mmol/L [facility] Work Phone: Urea nitrogen (BldV) [Mass/Vol] 40 mg/dL High 7 - 20 mg/dL [facility] Work Phone: CBCOrdered By: Ady Deras on 11-10-2020 Hematocrit (Bld) [Volume fraction] 37.2 % Low 40.0 - 52.0 % [facility] Work Phone: Hemoglobin.gastrointe stinal spec 1 Ql (Stl) 12.1 g/dL Low 13.0 - 18.0 g/dL [facility] Work Phone: Interpretation and review of laboratory results Abnormal [facility] Work Phone: MCH (RBC) [Entitic mass] 30.7 pg 26.0 - 34.0 pg [facility] Work Phone: MCHC (RBC) [Mass/Vol] 32.5 % 32.0 - 36.0 % [facility] Work Phone: MCV (RBC) [Entitic vol] 94.4 fL 80.0 - 98.0 fL [facility] Work Phone: Platelet distribution width (Bld) [Ratio] 13.0 % 11.5 - 14.5 % [facility] Work Phone: Platelet mean volume (Bld) [Entitic vol] 8.3 fL 7.4 - 10.4 fL [facility] Work Phone: Platelets (Bld) [#/Vol] 243 10*3/uL 140 - 440 10*3/uL [facility] Work Phone: ) RBC (Bld) [#/Vol] 3.94 10*6/uL Low 4.40 - 5.90 10*6/uL [facility] Work Phone: WBC (Bld) [#/Vol] 16.0 10*3/uL High 3.6 - 10.7 10*3/uL [facility] Work Phone: Test Performed by [facility], [address] [place] [address] [facility] Work Phone: Hemogramon 11-10-2020 Erythrocyte distribution width (RBC) [Ratio] 13.0 % Normal 11.5-14.5 [facility] Comment on above: Performed By: #### P T/AP, HEMOG, BMP3M #### [address] Hematocrit (Bld) [Volume fraction] 37.2 % Low 40.0-52.0 [facility] Comment on above: Performed By: #### P T/AP, HEMOG, BMP3M #### [address] Hemoglobin (Bld) [Mass/Vol] 12.1 g/dL Low 13.0-18.0 [facility] Comment on above: Performed By: #### P T/AP, HEMOG, BMP3M #### [address] MCH (RBC) [Entitic mass] 30.7 pg Normal 26.0-34.0 [facility] Comment on above: Performed By: #### P T/AP, HEMOG, BMP3M #### [address] MCHC 32.5 % Normal 32.0-36.0 [facility] Comment on above: Performed By: #### P T/AP, HEMOG, BMP3M #### [address] MCV (RBC) [Entitic vol] 94.4 fL Normal 80.0-98.0 [facility] Comment on above: Performed By: #### P T/AP, HEMOG, BMP3M #### [address] Platelet mean volume (Bld) [Entitic vol] 8.3 fL Normal 7.4-10.4 [facility] Comment on above: Performed By: #### P T/AP, HEMOG, BMP3M #### [address] Platelets (Bld) [#/Vol] 243 10*3/uL Normal 140-440 [facility] Comment on above: Performed By: #### P T/AP, HEMOG, BMP3M #### [address] RBC (Bld) [#/Vol] 3.94 10*6/uL Low 4.40-5.90 [facility] Comment on above: Performed By: #### P T/AP, HEMOG, BMP3M #### [address] WBC (Bld) [#/Vol] 16.0 10*3/uL High 3.6-10.7 [facility] Comment on above: Performed By: #### P T/AP, HEMOG, BMP3M #### [address] No Panel InformationOrdered By: Ady Deras on 11-10-2020 Test Performed by [facility], [address] [place] [address] [facility] Work Phone: PROTIME/INR & PTTOrdered By: Ady Deras on 11-10-2020 INR Coag (Bld) [Relative time] 1.0 {INR} [facility] Work Phone: Comment on above: Recommended Anticoag ulant Therapy: SEE BELOW ----- INR of 2.0 - 3.0 : - Prophylaxis of Venous Thrombosis (high-risk surgery) - Treatment of Venous Thrombosis - Treatment of Pulmonary Embolism (Includes tissue heart valves, Acute Myocardial Infarction to prevent systemic embolism, Valvular Heart Disease, and Atrial Fibrillation) ----- INR of 2.5 - 3.5 : - Mechanical Prosthetic Valves (high risk) - If oral anticoagulant therapy is used to prevent Myocardial Infarction Protime AND APTTOrdered By: Ady Deras on 11-10-2020 aPTT Coag (Bld) [Time] 24.2 s Normal 20.0-30.5 [facility] Work Phone: Comment on above: NOTE: The therapeuti c time for Heparin anticoagulation, based on Xa activity inhibition, is an APTT of 46-80 seconds. Result Comment: NOTE : The therapeutic time for Heparin anticoagulation, based on Xa activity inhibition, is an APTT of 46-80 seconds. Performed By: #### P T/SHAN KIRK BMP3M #### [facility] [place] [address] [place] [address] PT Coag (PPP) [Time] 11.1 s Normal 9.0-12.0 [facility] Work Phone: Comment on above: . Result Comment: . Performed By: #### P T/SHAN KIRK BMP3M #### [facility] [address] [place] [address] Protime AND APTTon INR 1.0 Normal 0.9-1.1 [facility] Comment on above: Result Comment: Todd mmended Anticoagulant Therapy: SEE BELOW ----- INR of 2.0 - 3.0 : - Prophylaxis of Venous Thrombosis (high-risk surgery) - Treatment of Venous Thrombosis - Treatment of Pulmonary Embolism (Includes tissue heart valves, Acute Myocardial Infarction to prevent systemic embolism, Valvular Heart Disease, and Atrial Fibrillation) ----- INR of 2.5 - 3.5 : - Mechanical Prosthetic Valves (high risk) - If oral anticoagulant therapy is used to prevent Myocardial Infarction Performed By: #### P T/SHAN KIRK BMP3Solitario #### [facility] [address] [place] [address] CNOVon 11-04-2020 CNOV Office Visit (FAMPWS ) FEI ROGERS ([id number]) 1935 M Date Time Provider Department 11/04/20 9:00 AM MARCOS MCCANN III During your visit today, we recorded the following information about you: Temperature Pulse Respiration Blood pressure 97.8 degrees 64/minute 18/minute 136/72 Weight 63 kg Marcos Mccann III MD 11/04/2020 10:05 AM Signed SUBJECTIVE: This is a 85 year old male that is here today for 1. PAD--walks 1 mi at 2.8 mph pace and 4.6 % grade on the treadmill w/o claudication. 2.hyperlipidemia-tolerates medication well lab review 10/22/20 Glu 111 chol 162 TG 98 HDL 52 LDL 90 creat 1.97 GFR 35 LFTs normal vit D 46 lytes normal 3. hypertension-tolerates medication well 4 hyperlipidemia-tolerates medication well no chest pain, angina, STEWARD, cough PAST MEDICAL HISTORY Diagnosis Date - Anemia of renal disease - Atherosclerosis of chipewwa artery of both lower extremities with intermittent claudication (HCC) 04/21/2017 - Bales's esophagus - Benign neoplasm of colon - Chronic kidney disease, stage 3 (HCC) - Esophagitis, unspecified - Essential hypertension, benign - Hyperparathyroidism, secondary renal (HCC) - Impaired fasting glucose 12/04/2013 - Nephrosclerosis 04/11/2015 See scanned documents - Other specified anemias - Renal insufficiency 01/07/2012 - Secondary hyperparathyroidism (HCC) 11/01/2017 - Skin cancer of arm 05/31/2012 - Unspecified conductive hearing loss - Unspecified transient cerebral ischemia - Vitamin D deficiency 04/15/2015 Current Outpatient Medications on File Prior to Visit Medication Sig - amLODIPine (NORVASC) 10 mg tablet Take 1 tablet by mouth once daily. - omeprazole (PRILOSEC) 20 mg capsule Take 1 capsule by mouth every morning. - metoprolol tartrate, short acting, (LOPRESSOR) 25 mg tablet Take 1 tablet by mouth twice daily. - atorvastatin (LIPITOR) 20 mg tablet TAKE 1 TABLET BY MOUTH EVERY DAY FOR CHOLESTEROL - Cholecalciferol, Vitamin D3, (VITAMIN D) 1,000 unit cap Take 1,000 Units by mouth once daily. - ASPIRIN 81 MG TAB, DELAYED RELEASE 1 daily - Fluorouracil 5 % cream APPLY TO THE FACE TWICE DAILY FOR TWO WEEKS. (Patient not taking: Reported on 11/04/2020) No current facility-administered medications on file prior to visit. FAMILY HISTORY Problem Relation Age of Onset - Cancer Brother stomach - Diabetes Mother - Coronary Artery Disease Mother - Coronary Artery Disease Brother COPD,CHF,lung cancer - Coronary Artery Disease Brother 7 stents - Coronary Artery Disease Brother CABG - Coronary Artery Disease Brother stomach cancer Social History Tobacco Use - Smoking status: Former Smoker Packs/day: 1.50 Years: 3.00 Pack years: 4.50 Quit date: 10/30/1957 Years since quittin.0 - Smokeless tobacco: Never Used Substance Use Topics - Alcohol use: No - Drug use: No BP 136/72 Pulse 64 Temp 36.6 ?C (97.8 ?F) Resp 18 Wt 63 kg (139 lb) SpO2 98% BMI 22.44 kg/m? . OBJECTIVE: APPEARANCE Well appearing, alert, in no acute distress, well-hydrated, well nourished. NECK Supple, no adenopathy; thyroid symmetric, normal size, no bruits HEART RRR with normal S1 and S2, no murmurs, no gallops, no JVD appreciated LUNG clear to auscultation ASSESSMENT: PAD--stable hypertension-at goal hyperlipidemia-at goal ASHD-stable PLAN: healthy diet and regular exercise same medications return to office with labs in 6 mos Marcos Mccann III MD Medical Decision Making: Problems: Moderate: 2+ stable chronic illnesses Data: Unique test result(s) reviewed: 3+ Risk: Moderate: Drug management Medical Decision Making Level: 4 - Moderate FERNANDA Smith MD, III MD 11/04/2020 9:24 AM Signed PLAN: healthy diet and regular exercise same medications return to office with labs in 6 mos Marcos Mccann III MD Referring Provider: MARCOS MCCANN III [[id number]] Allergies As of Date: 11/04/2020 Noted Allergy Reaction CONTRAST DYE 05/31/2012 14 - Other: See Comments Comments: Use caution when injection with any dye d/t decreased renal functions. HYGROTON 04/18/2019 14 - Other: See Comments Comments: erectile dysfunction Date Reviewed: 11/04/2020 Reviewed by: Sallie Webster LPN - Fully Assessed Reason for Visit: Established Patient [175] Cmt: 6 month follow up, lab review Primary Visit Diagnosis:Atherosclerosis of chipewwa artery of both lower extremities with intermittent claudication (HCC) [I70.213] Other Visit Diagnoses:Hyperlipidemia LDL goal <100 [E78.5] Stage 3a chronic kidney disease (HCC) [N18.31] Essential hypertension, benign [I10] Atherosclerosis of chipewwa coronary artery of chipewwa heart without angina pectoris [I25.10] Order(s):omeprazole (PRILOSEC) 20 mg capsuleTake 1 capsule by mouth every morning.Disp: 90 capsuleRfl: 3 metoprolol tartrate, (more content not included)... Normal [facility] CNPNon 11-04-2020 CNPN Telephone (FAMPWS) FEI ROGERS ([id number]) 1935 M Date Time Provider Department 11/04/20 MARCOS MCCANN III During your visit today, we recorded the following information about you: Rain Alejandro RN 11/04/2020 10:46 AM Signed Pt's called, verified pt by name and birthdate. states pt forgot to ask PCP if he can start Viagra again. Please advise Rain Mccann III MD 11/04/2020 5:00 PM Signed With his stable heart disease and good exercise tolerance, I believe that he can resume taking Viagra. Prescription will be sent to the local pharmacy. Report any symptoms of exertional chest pain, unexpected shortness of breath or lightheadedness. Marcos Mccann III, MD, FAAFP Sallie Webster LPN 11/04/2020 5:54 PM Signed Patient's aware of Dr Mccann's response, Verbalizes understanding. Did have some question concerning the victoria, encouraged to call [facility] and ask their pharmacy for coupons that they could use. Sallie Webster LPN Allergies As of Date: 11/04/2020 Noted Allergy Reaction CONTRAST DYE 05/31/2012 14 - Other: See Comments Comments: Use caution when injection with any dye d/t decreased renal functions. HYGROTON 04/18/2019 14 - Other: See Comments Comments: erectile dysfunction Date Reviewed: 11/04/2020 Reviewed by: Sallie Webster LPN - Fully Assessed Reason for Visit: Medication Question [7208] Order(s):sildenafil (VIAGRA) 50 mg tabletuse one/day as neededDisp: 6 tabletRfl: 6 Prescriptions as of 11/04/2020 Sig: OMEPRAZOLE 20 MG CAPSULE,LACEY* Take 1 capsule by mouth every* METOPROLOL TARTRATE 25 MG TAB* Take 1 tablet by mouth twice * ATORVASTATIN 20 MG TABLET TAKE 1 TABLET BY MOUTH EVERY * SILDENAFIL 50 MG TABLET use one/day as needed AMLODIPINE 10 MG TABLET Take 1 tablet by mouth once d* CHOLECALCIFEROL (VITAMIN D3) * Take 1,000 Units by mouth onc* FLUOROURACIL 5 % TOPICAL CREAM APPLY TO THE FACE TWICE DAILY* Patient not taking: Reported on 11/04/2020 * ASPIRIN 81 MG TABLET,DELAYED * 1 daily Problem List As Of Date 11/04/2020 Noted Resolved CAROTID ART STENOSIS-NO INFARCT [I65.29] 10/05/2002 Hyperlipidemia LDL goal <100 [E78.5] 03/30/2005 BENIGN HYPERTENSION [I10] 03/30/2005 BALES'S ESOPHAGUS [K22.70] 10/16/2005 Coronary atherosclerosis [I25.10] 12/02/2007 Skin cancer of arm [C44.601] 05/31/2012 Wound infection (HCC) [T14.8XXA, L08.9] 07/08/2012 04/15/2015 ED (erectile dysfunction) [N52.9] 04/20/2013 Vitamin D deficiency [E55.9] 04/15/2015 Stage 3 chronic kidney disease (HCC) [N18.30] 04/20/2016 History of colon polyps [Z86.010] 04/20/2016 Atherosclerosis of chipewwa artery of both lower *04/21/2017 Secondary hyperparathyroidism (HCC) [N25.81] 11/01/2017 11/15/2018 Disorder of the skin and subcutaneous tissue, u*04/05/2017 04/25/2018 Prescriptions ordered this encounter Disp Refills Start End SILDENAFIL 50 MG TABLET 6 ta* 6 11/04/2020 Sig: use one/day as needed Encounter Status:Closed by SALLIE WEBSTER LPN on 11/04/20 [facility] Telephone (FAMWS) FEI ROGERS ([id number]) 1935 M Date Time Provider Department 11/04/20 [facility]CCANN [facility] During your visit today, we recorded the following information about you: Solitario Doss RN 11/04/2020 10:43 AM Signed Mailed recent lab results and orders for next labs, to patient, via [employer], per request. Address verified. Allergies As of Date: 11/04/2020 Noted Allergy Reaction CONTRAST DYE 05/31/2012 14 - Other: See Comments Comments: Use caution when injection with any dye d/t decreased renal functions. HYGROTON 04/18/2019 14 - Other: See Comments Comments: erectile dysfunction Date Reviewed: 11/04/2020 Reviewed by: Sallie Webster LPN - Fully Assessed Reason for Visit: Mailed to patient [Other] Prescriptions as of 11/04/2020 Sig: OMEPRAZOLE 20 MG CAPSULE,LACEY* Take 1 capsule by mouth every* METOPROLOL TARTRATE 25 MG TAB* Take 1 tablet by mouth twice * ATORVASTATIN 20 MG TABLET TAKE 1 TABLET BY MOUTH EVERY * AMLODIPINE 10 MG TABLET Take 1 tablet by mouth once d* CHOLECALCIFEROL (VITAMIN D3) * Take 1,000 Units by mouth onc* FLUOROURACIL 5 % TOPICAL CREAM APPLY TO THE FACE TWICE DAILY* Patient not taking: Reported on 11/04/2020 * ASPIRIN 81 MG TABLET,DELAYED * 1 daily Problem List As Of Date 11/04/2020 Noted Resolved CAROTID ART STENOSIS-NO INFARCT [I65.29] 10/05/2002 Hyperlipidemia LDL goal <100 [E78.5] 03/30/2005 BENIGN HYPERTENSION [I10] 03/30/2005 BALES'S ESOPHAGUS [K22.70] 10/16/2005 Coronary atherosclerosis [I25.10] 12/02/2007 Skin cancer of arm [C44.601] 05/31/2012 Wound infection (HCC) [T14.8XXA, L08.9] 07/08/2012 04/15/2015 ED (erectile dysfunction) [N52.9] 04/20/2013 Vitamin D deficiency [E55.9] 04/15/2015 Stage 3 chronic kidney disease (HCC) [N18.30] 04/20/2016 History of colon polyps [Z86.010] 04/20/2016 Atherosclerosis of [place] artery of both lower *04/21/2017 Secondary hyperparathyroidism (HCC) [N25.81] 11/01/2017 11/15/2018 Disorder of the skin and subcutaneous tissue, u*04/05/2017 04/25/2018 Encounter Status:Closed by Solitario DOSS RN on 11/04/20 [facility] 10-04-2020 CNPN Telephone (FAMPWS) FEI ROGERS ([id number]) 1935 M Date Time Provider Department 10/04/20 MARCOS MCCANN III During your visit today, we recorded the following information about you: Rain Alejandro RN 10/04/2020 1:20 PM Signed Pt's called, verified pt by name and birthdate. Pt's wants to know if PCP can order labs for pt's upcoming apt. Pt had labs completed at [facility] on 04-26-2021. Please advise Rain Mccann III MD 10/04/2020 3:04 PM Signed Orders have been signed Marcos Mccann III, MD, FAAFP Tessa Urbina 10/04/2020 3:07 PM Signed Left massage that labs have been ordered. Tessa Urbina DIPIKA Stratton LPN 10/04/2020 3:19 PM Signed Pt called stating only part of the message left on the machine came through. She was notified of message. Spouse asking if lab orders can be mailed to pt as they have to be completed at [facility]. Orders printed AND mailed. Nora Stratton DIPIKA Allergies As of Date: 10/04/2020 Noted Allergy Reaction CONTRAST DYE 05/31/2012 14 - Other: See Comments Comments: Use caution when injection with any dye d/t decreased renal functions. HYGROTON 04/18/2019 14 - Other: See Comments Comments: erectile dysfunction Date Reviewed: 04/30/2020 Reviewed by: Deloris ([facility]) DAVID Mccormick - Fully Assessed Reason for Visit: Orders [681] Primary Visit Diagnosis:Hyperlipidemia LDL goal <100 [E78.5] Other Visit Diagnoses:Essential hypertension, benign [I10] Stage 3a chronic kidney disease (HCC) [N18.31] Vitamin D deficiency [E55.9] Order(s):COMP METABOLIC PANEL [SQCMP] Order #: [id number] FUTURE LIPID PANEL BASIC [SQLIPB] Order #: [id number] FUTURE VITAMIN D 25 HYDROXY [SQVITD] Order #: [id number] FUTURE Prescriptions as of 10/04/2020 Sig: AMLODIPINE 10 MG TABLET Take 1 tablet by mouth once d* OMEPRAZOLE 20 MG CAPSULE,LACEY* Take 1 capsule by mouth every* METOPROLOL TARTRATE 25 MG TAB* Take 1 tablet by mouth twice * ATORVASTATIN 20 MG TABLET TAKE 1 TABLET BY MOUTH EVERY * CHOLECALCIFEROL (VITAMIN D3) * Take 1,000 Units by mouth onc* FLUOROURACIL 5 % TOPICAL CREAM APPLY TO THE FACE TWICE DAILY* * ASPIRIN 81 MG TABLET,DELAYED * 1 daily Problem List As Of Date 10/04/2020 Noted Resolved CAROTID ART STENOSIS-NO INFARCT [I65.29] 10/05/2002 Hyperlipidemia LDL goal <100 [E78.5] 03/30/2005 BENIGN HYPERTENSION [I10] 03/30/2005 BALES'S ESOPHAGUS [K22.70] 10/16/2005 Coronary atherosclerosis [I25.10] 12/02/2007 Skin cancer of arm [C44.601] 05/31/2012 Wound infection (HCC) [T14.8XXA, L08.9] 07/08/2012 04/15/2015 ED (erectile dysfunction) [N52.9] 04/20/2013 Vitamin D deficiency [E55.9] 04/15/2015 Stage 3 chronic kidney disease (HCC) [N18.30] 04/20/2016 History of colon polyps [Z86.010] 04/20/2016 Atherosclerosis of [place] artery of both lower *04/21/2017 Secondary hyperparathyroidism (HCC) [N25.81] 11/01/2017 11/15/2018 Disorder of the skin and subcutaneous tissue, u*04/05/2017 04/25/2018 Encounter Status:Closed by TESSA URBINA on 10/04/20 Normal [facility] Vital Signs Date Time Vital Sign Value Performing Clinician Facility 02-07-2024 10:00-0400 Diastolic Blood Pressure Non-Invasive 62 mm[Hg] DR YADIEL ROBERSON MD [facility] 02-07-2024 10:00-0400 Respiratory rate 16 /min DR YADIEL ROBERSON MD [facility] 02-07-2024 10:00-0400 Systolic Blood Pressure Non-Invasive 147 mm[Hg] DR YADIEL ROBERSON MD [facility] 02-07-2024 09:52-0400 Diastolic Blood Pressure Non-Invasive 53 mm[Hg] DR YADIEL ROBERSON MD [facility] 02-07-2024 09:52-0400 Heart rate 68 /min DR YADIEL ROBERSON MD [facility] 02-07-2024 09:52-0400 Respiratory rate 15 /min DR YADIEL ROBERSON MD [facility] 02-07-2024 09:52-0400 Systolic Blood Pressure Non-Invasive 150 mm[Hg] DR YADIEL ROBERSON MD [facility] 02-07-2024 09:43-0400 Diastolic Blood Pressure Non-Invasive 66 mm[Hg] DR YADIEL ROBERSON MD [facility] 02-07-2024 09:43-0400 Heart rate 69 /min DR YADIEL ROBERSON MD [facility] 02-07-2024 09:43-0400 Respiratory rate 18 /min DR YADIEL ROBERSON MD [facility] 02-07-2024 09:43-0400 Systolic Blood Pressure Non-Invasive 132 mm[Hg] DR YADIEL ROBERSON MD [facility] 02-07-2024 09:37-0400 Body temperature 96.98 [degF] DR YADIEL ROBERSON MD [facility] 02-07-2024 09:30-0400 Respiratory Rate - Anes 13 br/min DR YADIEL ROBERSON MD [facility] 02-07-2024 09:25-0400 Respiratory Rate - Anes 14 br/min DR YADIEL ROBERSON MD [facility] 02-07-2024 09:20-0400 Respiratory Rate - Anes 17 br/min DR YADIEL ROBERSON MD [facility] 02-07-2024 08:14-0400 Body height 167.[address] YADIEL ROBERSON MD [facility] 02-07-2024 08:14-0400 Body weight 59.[address] YADIEL ROBERSON MD [facility] 02-07-2024 08:14-0400 Body weight 21.01 kg/m2 DR YADIEL ROBERSON MD [facility] 02-07-2024 [id number] Body height 167.[address] YADIEL ROBERSON MD [facility] 02-07-2024 08:07-0400 Body temperature 97.34 [degF] DR YADIEL ROBERSON MD [facility] 02-07-2024 [id number] Body weight 59.[address] YADIEL ROBERSON MD [facility] 02-07-2024 08:07-0400 Heart rate 71 /min DR YADIEL ROBERSON MD [facility] 01-03-2024 10:31-0400 Diastolic Blood Pressure Non-Invasive 61 mm[Hg] DR YADIEL ROBERSON MD [facility] 01-03-2024 10:31-0400 Heart rate 75 /min DR YADIEL ROBERSON MD [facility] 01-03-2024 10:31-0400 Respiratory rate 19 /min DR YADIEL ROBERSON MD [facility] 01-03-2024 10:31-0400 Systolic Blood Pressure Non-Invasive 150 mm[Hg] DR YADIEL ROBERSON MD [facility] 01-03-2024 10:25-0400 Diastolic Blood Pressure Non-Invasive 48 mm[Hg] DR YADIEL ROBERSON MD [facility] 01-03-2024 10:25-0400 Heart rate 70 /min DR YADIEL ROBERSON MD [facility] 01-03-2024 10:25-0400 Respiratory rate 15 /min DR YADIEL ROBERSON MD [facility] 01-03-2024 10:25-0400 Systolic Blood Pressure Non-Invasive 140 mm[Hg] DR YADIEL ROBERSON MD [facility] 01-03-2024 10:20-0400 Diastolic Blood Pressure Non-Invasive 48 mm[Hg] DR YADIEL ROBERSON MD [facility] 01-03-2024 10:20-0400 Heart rate 69 /min DR YADIEL ROBERSON MD [facility] 01-03-2024 10:20-0400 Respiratory rate 18 /min DR YADIEL ROBERSON MD [facility] 01-03-2024 10:20-0400 Systolic Blood Pressure Non-Invasive 128 mm[Hg] DR YADIEL ROBERSON MD [facility] 01-03-2024 09:55-0400 Respiratory Rate - Anes 21 br/min DR YADIEL ROBERSON MD [facility] 01-03-2024 09:50-0400 Respiratory Rate - Anes 19 br/min DR YADIEL ROBERSON MD [facility] 01-03-2024 09:45-0400 Respiratory Rate - Anes 15 br/min DR YADIEL ROBERSON MD [facility] 01-03-2024 09:14-04[address] Pressure Cuff Size DR YADIEL ROBERSON MD [facility] 01-03-2024 09:14-[address] YADIEL ROBERSON MD [facility] 01-03-2024 09:14-[address] YADIEL ROBERSON MD [facility] 01-03-2024 09:14-0400 Body height 167.[address] YADIEL ROBERSON MD [facility] 01-03-2024 09:14-0400 Body temperature 97.34 [degF] DR YADIEL ROBERSON MD [facility] 01-03-2024 09:14-0400 Body weight 59.[address] YADIEL ROBERSON MD [facility] 01-03-2024 09:14-0400 Body weight 21.02 kg/m2 DR YADIEL ROBERSON MD [facility] 01-03-2024 09:14-0400 Heart rate 62 /min DR YADIEL ROBERSON MD [facility] 12-27-2023 11:32-0400 Diastolic Blood Pressure Non-Invasive 64 mm[Hg] DR YADIEL ROBERSON MD [facility] 12-27-2023 11:32-0400 Heart rate 61 /min DR YADIEL ROBERSON MD [facility] 12-27-2023 11:32-0400 Respiratory rate 20 /min DR YADIEL ROBERSON MD [facility] 12-27-2023 11:32-0400 Systolic Blood Pressure Non-Invasive 128 mm[Hg] DR YADIEL ROBERSON MD [facility] 12-27-2023 11:20-0400 Diastolic Blood Pressure Non-Invasive 80 mm[Hg] DR YADIEL ROBERSON MD [facility] 12-27-2023 11:20-0400 Heart rate 65 /min DR YADIEL ROBERSON MD [facility] 12-27-2023 11:20-0400 Respiratory rate 16 /min DR YADIEL ROBERSON MD [facility] 12-27-2023 11:20-0400 Systolic Blood Pressure Non-Invasive 119 mm[Hg] DR YADIEL ROBERSON MD [facility] 12-27-2023 11:16-0400 Body temperature 96.98 [degF] DR YADIEL ROBERSON MD [facility] 12-27-2023 11:16-0400 Diastolic Blood Pressure Non-Invasive 50 mm[Hg] DR YADIEL ROBERSON MD [facility] 12-27-2023 11:16-0400 Heart rate 62 /min DR YADIEL ROBERSON MD [facility] 12-27-2023 11:16-0400 Respiratory rate 18 /min DR YADIEL ROBERSON MD [facility] 12-27-2023 11:16-0400 Systolic Blood Pressure Non-Invasive 117 mm[Hg] DR YADIEL ROBERSON MD [facility] 12-27-2023 11:10-0400 Respiratory Rate - Anes 12 br/min DR YADIEL ROBERSON MD [facility] 12-27-2023 11:05-0400 Respiratory Rate - Anes 23 br/min DR YADIEL ROBERSON MD [facility] 12-27-2023 11:00-0400 Respiratory Rate - Anes 15 br/min DR YADIEL ROBERSON MD [facility] 12-27-2023 10:34-0400 Body height 167.[address] YADIEL ROBERSON MD [facility] 12-27-2023 10:34-0400 Body temperature 96.8 [degF] DR YADIEL ROBERSON MD [facility] 12-27-2023 10:34-0400 Body weight 56.[address] YADIEL ROBERSON MD [facility] 12-27-2023 10:34-0400 Body weight 20.2 kg/m2 DR YADIEL ROBERSON MD [facility] 12-27-2023 10:34-0400 Heart rate 67 /min DR YADIEL ROBERSON MD [facility] 11-12-2020 12:00-0400 Heart rate 65 /min Rustam Pozsgay DO Work Phone: [facility] Work Phone: 11-12-2020 12:00-0400 Respiratory rate 24 /min Rustam Pozsgay DO Work Phone: [facility] Work Phone: 11-12-2020 12:00-0400 SaO2% (BldA) [Mass fraction] 96 % Rustam Pozsgay DO Work Phone: [facility] Work Phone: 11-12-2020 09:48-0400 Body height 167.6 cm Rustam Pozsgay DO Work Phone: [facility] Work Phone: Comment on above: per chart 11-12-2020 09:00-0400 Diastolic blood pressure 54 mm[Hg] Rustam Pozsgay DO Work Phone: [facility] Work Phone: 11-12-2020 09:00-0400 Systolic blood pressure 146 mm[Hg] Rustam Pozsgay DO Work Phone: [facility] Work Phone: 11-12-2020 08:00-0400 Body temperature 97.7 [degF] Rustam Pozsgay DO Work Phone: [facility] Work Phone: 11-12-2020 05:30-0400 Body mass index (BMI) [Ratio] 21.99 kg/m2 Rustam Gasca DO Work Phone: [facility] Work Phone: 11-12-2020 05:30-0400 Body weight 61.8 kg Rustam Gasca DO Work Phone: [facility] Work Phone: Encounters Encounter Date Encounter Type Care Provider Facility Start: 02-07-2024 End: 02-07-[address] YADIEL ROBERSON MD Facility:[facility] Start: 02-07-2024 End: 02-07-[address] YADIEL ROBERSON MD [facility] [place] Start: 01-03-2024 End: 01-03-[address] YADIEL ROBERSON MD Facility:[facility] Start: 01-03-2024 End: 01-03-[address] YADIEL ROBERSON MD [facility] Start: 12-29-[address] YADIEL ROBERSON MD Fa cility:B Start: 12-27-2023 End: 12-27-[address] YADIEL ROBERSON MD Facility:[facility] Start: 12-27-2023 End: 12-27-[address] YADIEL ROBERSON MD [facility] Start: 11-10-2020 End: 11-12-2020 Evaluation and management of inpatient Rustam Gasca DO Work Phone: [facility] Comment on above: Syncope and collapse (Primary Dx); Subarachnoid hematoma, with loss of consciousness of 30 minutes or less, initial encounter (HCC) Procedures Date Procedure Procedure Detail Performing Clinician Start: 02-07-[address] YADIEL SHAH MD Comment on above: WITH DILATION Start: 11-12-2020 Ct head/brain w/o contrast material Ady Fang DO Work Phone: Start: 11-12-2020 25 hydroxy includes fractions if performed Rafael Longo MD Work Phone: Start: 11-11-2020 Urnls dip stick/tablet rgnt auto w/o microscopy Esperanza Bella [place] DO Work Phone: Start: 11-11-2020 Mra head w/o contrst material Ady loera DO Work Phone: Start: 11-11-2020 Echo tthrc r-t 2d w/wom-mode compl spec&colr d Ady Deras MD Work Phone: Start: 11-11-2020 ADD ON LAB TEST Rafael Longo MD Work Phone: Start: 11-11-2020 Basic metabolic panel calcium total Cedric Jane MD Work Phone: Start: 11-11-2020 Ct head/brain w/o contrast material Ady Deras MD Work Phone: Start: 11-10-2020 Ecg routine ecg w/least 12 lds w/i&r Cedric Jane MD Work Phone: Start: 11-10-2020 Speech and language therapy regime Ady Deras MD Work Phone: Start: 11-10-2020 BASIC METABOLIC PANEL W/ REFLEX TO MG FOR LOW K Ady Deras MD Work Phone: Start: 11-10-2020 Blood count complete automated Ady Hernandez MD Work Phone: Start: 11-10-2020 PROTIME/INR & PTT Ady Deras MD Work Phone: Ankle region structu re (body structure) DR YADIEL ROBERSON MD Comment on above: PIN IN ANKLE Coronary artery bypass grafts x 5 DR YADIEL ROBERSON MD Hand surgery DR YADIEL HENNING MD Comment on above: RIGHT Plan of Treatment Date Care Activity Detail Author Start: 03-31-2023 DTaP/Tdap/Td vaccine (2 - Tdap) DTaP/Tdap/Td vaccine (2 - Tdap) [facility] Work Phone: Start: 03-19-2021 Influenza vaccination Flu vacc ine (Season Ended) [facility] Work Phone: Start: 11-20-2020 End: 11-20-2020 Patient encounter procedure 11/20/2020 Office Visit Neurology Vince Pantoja MD [address] [place] [address] [place] [address] [phone] [facility] Neurology [address] Start: 11-11-2020 Annual Wellness Visi t (AWV) Annual Wellness Visit (AWV) [facility] Work Phone: Start: 2001 Pneumococcal 65+ yea rs Vaccine (1 of 1 - PPSV23) Pneumococcal 65+ years Vaccine (1 of 1 - PPSV23) [facility] Work Phone: Start: 1986 Shingles Vaccine (1 of 2) Shingles Vaccine (1 of 2) [facility] Work Phone: Start: 1952 COVID-19 Vaccine (1) COVID-19 Vaccin e (1) [facility] Work Phone: Start: 1946 Lipid panel Lipid screen [facility] Work Phone: EKG 12 Lead EKG 12 Lead ECG Routine 11/10/2020 7:58 PM EDT [facility] Work Phone: Glucose [Mass/volume ] in Serum or Plasma POCT Glucose Point of Care Testing Timed As Needed for 12 Occurrences starting 11/10/2020 [facility] Work Phone: Comment on above: As Needed for 12 Occ urrences starting 11/10/2020 End: 11-11-2020 Intermittent pulse oximetry Pulse Oximetry Spot Check Respiratory Care Routine One Time for 1 Occurrences starting 11/11/2020 until 11/11/2020 [facility] Work Phone: Comment on above: One Time for 1 Occur rences starting 11/11/2020 until 11/11/2020 Oxygen therapy [[facility] Data Set] Initiate Oxygen Therapy Protocol Respiratory Care Routine Daily until discontinued starting 11/10/2020 [email or web address] Phone: Comment on above: Daily until disconti nued starting 11/10/2020 Spirometry panel Incentive [place] Respiratory Care Routine Every 1hr while awake until discontinued starting 11/10/2020 [email or web address] Phone: Comment on above: Every 1hr while awak e until discontinued starting 11/10/2020 Payers Date Payer Category Payer Medicare [id number] 1935 Unknown [id number] 1935 Unknown [id number] 1935 Unknown [id number] 1935 Unknown [id number] Social History Date Type Detail Facility Start: 11-10-2020 Tobacco smoking stat [facility] Former smoker [email or web address] Phone: History of tobacco use Cigarette Smoker S [facility] Start: 11-10-2020 Cigarettes smoked current (pack per day) - Reported [email or web address] Phone: Start: 11-10-2020 Alcohol intake Current drinke r of alcohol (finding) [facility] Work Phone: Start: 11-10-2020 History SDOH Alcohol Frequency 1 [email or web address] Phone: Start: 11-10-2020 Tobacco Comment quit smoking at 20 [address] [employer] Work Phone: Start: 11-10-2020 Alcohol Comment once jessica while [facility] Work Phone: Sex Assigned At Not on file [facility] Work Phone: Exposure to SARS-CoV -2 (event) Not sure [facility] Start: 12-27-2023 Tobacco smoking status Never s moked tobacco (finding) [facility] Sex Assigned At Male [facility] Functional Status Date Assessment Result Facility 02-07-2024 Functional Status Awake [facility] 02-07-2024 Functional Status [facility] 01-03-2024 Functional Status Awake [facility] 01-03-2024 Functional Status [facility] 12-27-2023 Functional Status Maintained [facility] Mental Status Date Assessment Result Facility 02-07-2024 Mental Status Oriented x 4 [facility] 02-07-2024 Mental Status [facility] 12-27-2023 Mental Status Oriented x 4 [facility] Clinical Notes 08-09-2020 to 02-07-2024 Note Date & Type Note Facility 02-07-2024 Evaluation + Plan note Ext[facility] campbell from: Title:Clinical Document Author:YADIEL ROBERSON Date:02/07/24 [facility] ADMISSION HISTORY AN D PHYSICIAL CHIEF COMPLAINT: HISTORY OF PRESENT ILLNESS: REVIEW OF SYSTEMS: ACTIVE PROBLEMS: (1) GERD (gastroesophageal reflux disease) ([id number]) MEDICATIONS: Active Inpt Meds: None Active PRN Meds: None One Time Meds: None Active IV Meds: Lactated Ringers Infusion 1,000 mL Start: 02/07/24 7:58:00 EDT, Rate: 20 mL/hr, 02/07/24 7:58:00 EDT ALLERGIES: (1) Contrast dye FAMILY HISTORY: SOCIAL HISTORY: PHYSICAL EXAM: VITALS: [id number](kg) 02/06 08:0736.3--075435--82/22 59.1 02/06 59.1 24 Hr Tmax: 36.3 at 02/06 08:07 36 Hr Tmax: 36.3 at 02/06 08:07 Vital Signs are the last 5 in the past 48 hours. Weights display the last 5 within 7 days. Initial Wt: 02/06 59.1 kg 130 lb Current Wt: 02/06 59.1 kg 130 lb GENERAL: HEENT: CARDIOVASCULAR: RESPIRATORY: ABDOMEN: EXREMETIES: NEUROLOGICAL: PSYCHIATRIC: LABS: No 36hr Lab Data DIAGNOSTICS: IMPRESSION: PLAN: History and Physical Update I have examined the patient; reviewed the H&P and there are no changes to the H&P unless noted below. [facility] 07-22-2024 Hospital Discharge instructions Patient Education 02/07/2024 09:49:18 Esophageal Dilatation Esophageal Dilatation Esophageal dilatation, also called esophageal dilation, is a procedure to widen or open (dilate) a blocked or narrowed part of the esophagus. The esophagus is the part of the body that moves food andliquid from the mouth to the stomach. You may need this procedure if: You have a buildup of scar tissue in your esophagus that makes it difficult, painful, or impossibleto swallow. This can be caused by gastroesophageal reflux disease (GERD). You have cancer of the esophagus. There is a problem with how food moves through your esophagus. In some cases, you may need this procedure repeated at a later time to dilate the esophagus gradually. Tell a health care provider about: Any allergies you have. All medicines you are taking, including vitamins, herbs, eye drops, creams, and uyzu-jad-xauwfyb medicines. Any problems you or family members have had with anesthetic medicines. Any blood disorders you have. Any surgeries you have had. Any medical conditions you have. Any antibiotic medicines you are required to take before dental procedures. Whether you are or may be . What are the risks? Generally, this is a safe procedure. However, problems may occur, including: Bleeding due to a tear in the lining of the esophagus. A hole (perforation) in the esophagus. What happens before the procedure? Follow instructions from your health care provider about eating or drinking restrictions. Ask your health care provider about changing or stopping your regular medicines. This is especiallyimportant if you are taking diabetes medicines or blood thinners. Plan to have someone take you home from the hospital or clinic. Plan to have a responsible adult care for you for at least 24 hours after you leave the hospital orclinic. This is important. What happens during the procedure? You may be given a medicine to help you relax (sedative). A numbing medicine may be sprayed into the back of your throat, or you may gargle the medicine. Your health care provider may perform the dilatation using various surgical instruments, such as: ?Simple dilators. This instrument is carefully placed in the esophagus to stretch it. ?Guided wire bougies. This involves using an endoscope to insert a wire into the esophagus. A dilator is passed over this wire to enlarge the esophagus. Then the wire is removed. ?Balloon dilators. An endoscope with a small balloon at the end is inserted into the esophagus. Theballoon is inflated to stretch the esophagus and open it up. The procedure may vary among health care providers and hospitals. What happens after the procedure? Your blood pressure, heart rate, breathing rate, and blood oxygen level will be monitored until themedicines you were given have worn off. Your throat may feel slightly sore and numb. This will improve slowly over time. You will not be allowed to eat or drink until your throat is no longer numb. When you are able to drink, urinate, and sit on the edge of the bed without nausea or dizziness, you may be able to return home. Follow these instructions at home: Take wzcl-cfr-npiysbd and prescription medicines only as told by your health care provider. Do not drive for 24 hours if you were given a sedative during your procedure. You should have a responsible adult with you for 24 hours after the procedure. Follow instructions from your health care provider about any eating or drinking restrictions. Do not use any products that contain nicotine or tobacco, such as cigarettes and e-cigarettes. If you need help quitting, ask your health care provider. Keep all follow-up visits as told by your health care provider. This is important. Get help right away if you: Have a fever. Have chest pain. Have pain that is not relieved by medication. Have trouble breathing. Have trouble swallowing. Vomit blood. Summary Esophageal dilatation, also called esophageal dilation, is a procedure to widen or open (dilate) a blocked or narrowed part of the esophagus. Plan to have someone take you home from the hospital or clinic. For this procedure, a numbing medicine may be sprayed into the back of your throat, or you may gargle the medicine. Do not drive for 24 hours if you were given a sedative during your procedure. This information is not intended to replace advice given to you by your health care provider. Make sure you discuss any questions you have with your health care provider. Document Released: 08/26/2006 Document Revised: 06/17/2018 Document Reviewed: 05/10/2018 [employer] Patient Education 2020 [employer]. 02/07/2024 09:49:07 Monitored Anesthesia Care, Care After Monitored Anesthesia Care, Care After These instructions provide you with information about caring for yourself after your procedure. Your health care provider may also give you more specific instructions. Your treatment has been plannedaccording to current medical practices, but problems sometimes occur. Call your health care provider if you have any problems or questions after your procedure. What can I expect after the procedure? After your procedure, you may: Feel sleepy for several hours. Feel clumsy and have poor balance for several hours. Feel forgetful about what happened after the procedure. Have poor judgment for several hours. Feel nauseous or vomit. Have a sore throat if you had a breathing tube during the procedure. Follow these instructions at home: For at least 24 hours after the procedure: Have a responsible adult stay with you. It is important to have someone help care for you until youare awake and alert. Rest as needed. Do not: ?Participate in activities in which you could fall or become injured. ?Drive. ?Use heavy machinery. ?Drink alcohol. ?Take sleeping pills or medicines that cause drowsiness. ?Make important decisions or sign legal documents. ?Take care of children on your own. Eating and drinking Follow the diet that is recommended by your health care provider. If you vomit, drink water, juice, or soup when you can drink without vomiting. Make sure you have little or no nausea before eating solid foods. General instructions Take wemt-eox-tpgjoos and prescription medicines only as told by your health care provider. If you have sleep apnea, surgery and certain medicines can increase your risk for breathing problems. Follow instructions from your health care provider about wearing your sleep device: ?Anytime you are sleeping, including during daytime naps. ?While taking prescription pain medicines, sleeping medicines, or medicines that make you drowsy. If you smoke, do not smoke without supervision. Keep all follow-up visits as told by your health care provider. This is important. Contact a health care provider if: You keep feeling nauseous or you keep vomiting. You feel light-headed. You develop a rash. You have a fever. Get help right away if: You have trouble breathing. Summary For several hours after your procedure, you may feel sleepy and have poor judgment. Have a responsible adult stay with you for at least 24 hours or until you are awake and alert. This information is not intended to replace advice given to you by your health care provider. Make sure you discuss any questions you have with your health care provider. Document Released: 10/25/2016 Document Revised: 10/03/2018 Document Reviewed: 10/25/2016 [employer] Patient Education 2020 [employer]. 02/07/2024 09:48:59 9 - AO Minor Esophagogastroduodenoscopy (09/29) (CUSTOM) Esophagogastroduodenoscopy This is an endoscopic procedure (a procedure that uses a device like a flexible telescope) that allows your caregiver to view the upper stomach and small bowel. This test allows your caregiver to look at the esophagus. The esophagus carries food from your mouth to your stomach. They can also look at your duodenum. This is the first part of the small intestine that attaches to the stomach. This test is used to detect problems in the bowel such as ulcers and inflammation. MEANING OF TEST Your caregiver will go over the test results with you and discuss the importance and meaning of your results, as well as treatment options and the need for additional tests if necessary. OBTAINING THE TEST RESULTS Your caregiver s office will call you with the results of the test. POST SEDATION INSTRUCTIONS Rest at home today. Since your coordination may be impaired, be cautious on stairways, do not drive any vehicle or operate any heavy machinery, or use any sharp instruments for the remainder of the day. Do not drink any alcoholic beverages or make any major decisions for 24 hours. POST PROCEDURE INSTRUCTIONS Progress slowly with full liquids then resume previous diet and medications. Belching or passing of gas is to be expected. Notify the physician if you have severe chest pain, fever, or if difficulty when swallowing persists. 09/26/13 Custom Follow Up Care 02/07/2024 07:48:03 With:YADIEL ROBERSON Address: [address] [phone] Business (1) When: Unknown Comments:WHEN NEEDED [facility] Nunudaniella Siegel 07-22-2024 Note Discharge Instructions Thank you for allowing [facility] to assist you with your healthcare needs. The following is importantdischarge information regarding your hospital visit. Your Care Team AMANDA DAVIS DO What to do next Follow Up Appointments Follow Up with YADIEL ROBERSON Where:[address] [place], [place] [phone] Business (1) Additional Information: WHEN NEEDED The Following Activity and Diet Have Been Ordered for You Discharge Activity - Ordered -- NO activity restrictions, 02/07/24 9:37:00 EDT Discharge Diet - Ordered -- Follow the post-operative/post-procedure diet instructions provided by your physician's office.,02/07/24 9:37:00 EDT Allergies Contrast dye Medications Please ask your primary doctor or pharmacist before taking any other medication not listed, including over the counter drugs, herbal medications, vitamins and or supplements as they may interact withyour home medications. What How Much When Instructions Last Dose Unchanged amLODIPine (amLODIPine 10 mg oral tablet) 1 tab(s) by mouth Once a day Unchanged aspirin (aspirin 81 mg oral delayed release tablet) 1 tab(s) by mouth Every day Unchanged atorvastatin (atorvastatin 20 mg oral tablet) 1 tab(s) by mouth Every day Unchanged cholecalciferol (Vitamin D3) 10 Microgram by mouth Every day Unchanged hydroCHLOROthiazide (hydroCHLOROthiazide 25 mg oral tablet) 1 tab(s) by mouth Every day Unchanged metoprolol (Lopressor 25mg--USE metoprolol tartrate 25 mg oral tablet) 1 tab(s) Please take this list to your next doctor s visit. Bring all medications you take, including over the counter medications, herbals and other supplements with you to your doctor s visit. Patients and families are reminded to discard old lists and to update any records with all medication providers or retail pharmacies. Education Materials Esophageal Dilatation Esophageal dilatation, also called esophageal dilation, is a procedure to widen or open (dilate) a blocked or narrowed part of the esophagus. The esophagus is the part of the body that moves food andliquid from the mouth to the stomach. You may need this procedure if: You have a buildup of scar tissue in your esophagus that makes it difficult, painful, or impossibleto swallow. This can be caused by gastroesophageal reflux disease (GERD). You have cancer of the esophagus. There is a problem with how food moves through your esophagus. In some cases, you may need this procedure repeated at a later time to dilate the esophagus gradually. Tell a health care provider about: Any allergies you have. All medicines you are taking, including vitamins, herbs, eye drops, creams, and nuhl-qwb-sgpemug medicines. Any problems you or family members have had with anesthetic medicines. Any blood disorders you have. Any surgeries you have had. Any medical conditions you have. Any antibiotic medicines you are required to take before dental procedures. Whether you are or may be . What are the risks? Generally, this is a safe procedure. However, problems may occur, including: Bleeding due to a tear in the lining of the esophagus. A hole (perforation) in the esophagus. What happens before the procedure? Follow instructions from your health care provider about eating or drinking restrictions. Ask your health care provider about changing or stopping your regular medicines. This is especiallyimportant if you are taking diabetes medicines or blood thinners. Plan to have someone take you home from the hospital or clinic. Plan to have a responsible adult care for you for at least 24 hours after you leave the hospital orclinic. This is important. What happens during the procedure? You may be given a medicine to help you relax (sedative). A numbing medicine may be sprayed into the back of your throat, or you may gargle the medicine. Your health care provider may perform the dilatation using various surgical instruments, such as: ? Simple dilators. This instrument is carefully placed in the esophagus to stretch it. ? Guided wire bougies. This involves using an endoscope to insert a wire into the esophagus. A dilator is passed over this wire to enlarge the esophagus. Then the wire is removed. ? Balloon dilators. An endoscope with a small balloon at the end is inserted into the esophagus. The balloon is inflated to stretch the esophagus and open it up. The procedure may vary among health care providers and hospitals. What happens after the procedure? Your blood pressure, heart rate, breathing rate, and blood oxygen level will be monitored until themedicines you were given have worn off. Your throat may feel slightly sore and numb. This will improve slowly over time. You will not be allowed to eat or drink until your throat is no longer numb. When you are able to drink, urinate, and sit on the edge of the bed without nausea or dizziness, you may be able to return home. Follow these instructions at home: Take iycy-lfa-bykspsi and prescription medicines only as told by your health care provider. Do not drive for 24 hours if you were given a sedative during your procedure. You should have a responsible adult with you for 24 hours after the procedure. Follow instructions from your health care provider about any eating or drinking restrictions. Do not use any products that contain nicotine or tobacco, such as cigarettes and e-cigarettes. If you need help quitting, ask your health care provider. Keep all follow-up visits as told by your health care provider. This is important. Get help right away if you: Have a fever. Have chest pain. Have pain that is not relieved by medication. Have trouble breathing. Have trouble swallowing. Vomit blood. Summary Esophageal dilatation, also called esophageal dilation, is a procedure to widen or open (dilate) a blocked or narrowed part of the esophagus. Plan to have someone take you home from the hospital or clinic. For this procedure, a numbing medicine may be sprayed into the back of your throat, or you may gargle the medicine. Do not drive for 24 hours if you were given a sedative during your procedure. This information is not intended to replace advice given to you by your health care provider. Make sure you discuss any questions you have with your health care provider. Document Released: 08/26/2006 Document Revised: 06/17/2018 Document Reviewed: 05/10/2018 Elsevier Patient Education 2020 [employer] Monitored Anesthesia Care, Care After These instructions provide you with information about caring for yourself after your procedure. Your health care provider may also give you more specific instructions. Your treatment has been plannedaccording to current medical practices, but problems sometimes occur. Call your health care provider if you have any problems or questions after your procedure. What can I expect after the procedure? After your procedure, you may: Feel sleepy for several hours. Feel clumsy and have poor balance for several hours. Feel forgetful about what happened after the procedure. Have poor judgment for several hours. Feel nauseous or vomit. Have a sore throat if you had a breathing tube during the procedure. Follow these instructions at home: For at least 24 hours after the procedure: Have a responsible adult stay with you. It is important to have someone help care for you until youare awake and alert. Rest as needed. Do not: ? Participate in activities in which you could fall or become injured. ? Drive. ? Use heavy machinery. ? Drink alcohol. ? Take sleeping pills or medicines that cause drowsiness. ? Make important decisions or sign legal documents. ? Take care of children on your own. Eating and drinking Follow the diet that is recommended by your health care provider. If you vomit, drink water, juice, or soup when you can drink without vomiting. Make sure you have little or no nausea before eating solid foods. General instructions Take xecs-qet-xhayxru and prescription medicines only as told by your health care provider. If you have sleep apnea, surgery and certain medicines can increase your risk for breathing problems. Follow instructions from your health care provider about wearing your sleep device: ? Anytime you are sleeping, including during daytime naps. ? While taking prescription pain medicines, sleeping medicines, or medicines that make you drowsy. If you smoke, do not smoke without supervision. Keep all follow-up visits as told by your health care provider. This is important. Contact a health care provider if: You keep feeling nauseous or you keep vomiting. You feel light-headed. You develop a rash. You have a fever. Get help right away if: You have trouble breathing. Summary For several hours after your procedure, you may feel sleepy and have poor judgment. Have a responsible adult stay with you for at least 24 hours or until you are awake and alert. This information is not intended to replace advice given to you by your health care provider. Make sure you discuss any questions you have with your health care provider. Document Released: 10/25/2016 Document Revised: 10/03/2018 Document Reviewed: 10/25/2016 [employer] Patient Education 2020 [employer] Esophagogastroduodenoscopy This is an endoscopic procedure (a procedure that uses a device like a flexible telescope) that allows your caregiver to view the upper stomach and small bowel. This test allows your caregiver to look at the esophagus. The esophagus carries food from your mouth to your stomach. They can also look at your duodenum. This is the first part of the small intestine that attaches to the stomach. This test is used to detect problems in the bowel such as ulcers and inflammation. MEANING OF TEST Your caregiver will go over the test results with you and discuss the importance and meaning of your results, as well as treatment options and the need for additional tests if necessary. OBTAINING THE TEST RESULTS Your caregiver s office will call you with the results of the test. POST SEDATION INSTRUCTIONS Rest at home today. Since your coordination may be impaired, be cautious on stairways, do not drive any vehicle or operate any heavy machinery, or use any sharp instruments for the remainder of the day. Do not drink any alcoholic beverages or make any major decisions for 24 hours. POST PROCEDURE INSTRUCTIONS Progress slowly with full liquids then resume previous diet and medications. Belching or passing of gas is to be expected. Notify the physician if you have severe chest pain, fever, or if difficulty when swallowing persists. 09/26/13 Custom Additional Information VACCINATE! IT SAVES LIVES! Members of the community who have not yet received the COVID-19 vaccine and would like to receive it can visit one of [facility] vaccine clinics. There are many vaccine clinic locations within the [facility]. For locations and available times, please visit [email or web address].[place].gov/. It is important to note that some COVID mobile vaccine clinics are held outdoors and may be canceled in rainy or stormy conditions. To learn more about pediatric vaccinations (ages 5-11), we invite you to visit the [facility] webpage. [email or web address]/[email or web address] [email or web address] learn more about the COVID-19 vaccine, we invite you to visit the CDC website for a list of frequently asked questions.https://www.cdc.gov/coronavirus/2019-ncov/vaccines/faq.html [facility] Patient Portal Access Instructions: Stay connected with your healthcare team and access your personal medical information anytime with the [facility] Patient Portal. Please follow the directions below to create your [facility] account: 1.Access the email account you provided upon registration to the hospital/physician office.2.Look for an invitation email from [facility].3.Open the email and access the invitation link: AcceptInvitation to [facility].4.Fill in the required gomez to create your account. To access your account, visit [email or web address]. Click the blue button labeled Access Patient Portal and then log in with the username and password that you created in the steps above. You will be able to view your test results, lab results, a summary of your visits, upcoming appointments and more. There is also a convenient messaging option where you can send secure messages to your p rovider. In addition, you will have the ability to download any documents or summaries to your computer and/or send the information securely to a physician. Remember that your healthcare information is confidential, so carefully consider who you will allowto register on the [facility] Patient Portal for access to your information. You can also access the [facility] Patient Portal on the [facility] melany. Simply click on Patient Portal and then log into your account. If you would like to receive a full copy of your medical records, please contact the [facility] Medical Records Department by calling [phone], Wednesday through Wednesday between 8 a.m. and 4:30 p.m. HOW TO SAFELY DISPOSE OF PRESCRIPTION MEDICATIONS Please use one of the following methods to safely dispose of your unused medications. 1.Use a drug disposal kit: the drug disposal pouch allows you to safely discard your old and unuseddrugs. Ask your nurse to give you one when you are discharged.2.Visit a local take-back location: Many local pharmacies and police departments have programs that collect old and unwanted prescriptiondrugs. Call your local pharmacy or go to http://StudioSnaps.ZEB/5K7Sd9n to find one close to you.3.Make use of household items: Use cat litter or old coffee grounds to dispose medications if other options arenot available. Mix your drugs with these household products, seal them in an airtight container andthrow it into the garbage. Call [facility]: [phone] to be sure your drugs can be disposed of in this way. Some medicines may require a different approach.4.Never flush your medications down the toilet. IF YOU HAVE BEEN PRESCRIBED AN OPIOID FOR PAIN If you have been prescribed an opioid (such as hydrocodone, oxycodone or morphine), it is critical to understand the possible side effects and risks of opioid pain medications. Even when taken as directed, opioids can have several side effects including: Tolerance, meaning you might need to take more of a medication for the same pain relief. Nausea, vomiting and/or constipation. Sleepiness, dizziness, dry mouth, confusion, depression or itching. Physical dependence, meaning you have withdrawal symptoms when a medication is stopped, can develop within a few days. KNOW YOUR RESPONSIBILITIES It is important to know exactly how much and how often to take the opioid pain medications you are prescribed. Never take opioids in higher amounts or more often than prescribed. Do not combine opioids with alcohol or other drugs that cause drowsiness, such as benzodiazepines, also known as benzos, including diazepam and alprazolam, muscle relaxants or sleep aids. Never sell or share prescription opioids. This is illegal. Store opioids in a secure place and out of reach of others (including children, family, friends and visitors). The last page of this document has been signed and retained as a CHART COPY. Signatures Patient Education Materials Esophageal Dilatation Monitored Anesthesia Care, Care After 9 - AO Minor Esophagogastroduodenoscopy (09/29) (CUSTOM) Medication Leaflets My discharge plan and instructions have been reviewed and explained to me and I,FEI ROGERS understand my current condition and have read and understand these discharge instructions. I have received a written copy of the plan/instructions. If I have questions, I am aware that I should contact my doctor. 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 Location [facility] Pre-Procedure Exam EGD with balloon dilatation Procedural Sedation Anesthesia provided a MAC Technique The patient was brought to the endoscopy suite and placed left shoulder down. The endoscope was passed visualization down to the esophagus the stricture was at 27 cm from the incisors. The endoscope could not be passed by the stricture. Using a CRE balloon the balloon was passed down the channel ofthe endoscope and the guidewire was placed across the stricture without any resistance. The balloonwas then inflated to 2 [address] and held in place for approximately 20 seconds and this was repeated twice. The balloon was then increase by 1 laurel each time with the dilatation occurring at least twice with each atmospheric pressure. At 6 laurel this was greater than 11 mm and this was felt to be sufficient for today's session. Upon completing the dilatation the endoscope will be passed through the stricture into the stomach there was a long segment of Bales's mucosa patient also has a hiatal hernia.Banding stomach and duodenum were examined they were unremarkable. Scope was withdrawn back up to the stricture there was no bleeding noted the patient tolerated the procedure well. Impression esophageal stricture status postdilatation stricture was probably 7 mm or so in diameter had a the stricture has been increased to at least 9 mm in diameter. Post-Procedure Exam EGD with balloon dilatation Findings Esophageal stricture Complications None apparent Total Time Approximately 25 minutes Assessment/Plan Orders: Lactated Ringers Infusion 1,000 mL, 1000 mL, Intravenous Bedrest, 02/07/24 9:37:00 EDT, Strict, continuous, Constant order, Lying on side until alert or as ordered Bedrest, 02/07/24 9:37:00 EDT, Strict, continuous, Constant order, Lying on side until alert or as ordered Call Parameters, 02/07/24 9:37:00 EDT, Notify for vomiting, severe pain, signs of bleeding, severe abdominal pain, distention or rigidity, Constant order Communication Order (continuous), 02/07/24 7:58:00 EDT, Clear liquids post exam or after Gag reflexreturns if EGD, Constant order Communication Order (continuous), 02/07/24 7:59:00 EDT, fasting blood sugar prior to procedure if patient is diabetic, Constant order Diet Order, 02/07/24 9:37:00 EDT, Start Meal: Next meal, Clear Liquid Diet, Post exam or after gag reflex returns if EGD, Constant Order, : N/A, : N/A Discharge, 02/07/24 7:58:00 EDT, Discharged to: Home, when the patient is able to ambulate, and after being seen by physician. Discharge Activity, NO activity restrictions, 02/07/24 9:37:00 EDT Discharge Diet, Follow the post-operative/post-procedure diet instructions provided by your physician's office., 02/07/24 9:37:00 EDT Discharge Wound Care, Follow the post-operative/post-procedure wound care instructions provided by your physician's office., 02/07/24 9:37:00 EDT IV Catheter Insertion/Care(Peripheral IV Insertion/Care), 02/07/24 7:59:00 EDT, IV Care: q4h, Rotate when clinically indicated & q7day drsg change Post Procedure Assessment, 02/07/24 9:37:00 EDT, Stop Date 02/07/24 9:37:00 EDT, [facility] in [facility] until Alicia Score of 12 or Preprocedure Vital Signs, 02/07/24 7:59:00 EDT, 02/07/24 7:59:00 EDT, per sedation policy Vital Signs, 02/07/24 9:37:00 EDT, q15min, 1 hour(s), 02/07/24 10:30:00 EDT Vital Signs, 02/07/24 9:37:00 EDT, q30min, 1 hour(s), 02/07/24 10:30:00 EDT Vital Signs PRN, 02/07/24 9:37:00 EDT, PRN order Follow Up/Recommendation Repeated dilatation within 1 week and continue the patient on a PPI and a twice daily dosage. Digitally Signed by YADIEL ROBERSON MD on 02/07/2024 09:41 AM [facility]07-22-2024 Anesthesiology Consult note Patient: FEI ROGERS Age: 88 years Sex: Male : 1935 Associated Diagnoses: None Author: JIAN RIVERA 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 Assessment Postanesthesia assessment Vitals: Vital signs from flowsheet : Vital Signs 02/07/2024 9:30 EDT Heart Rate Monitored 71 bpm bpm Respiratory Rate - Anes 13 br/min br/min Systolic Blood Pressure Non-Invasive 136 mmHg mmHg Diastolic Blood Pressure Non-Invasive 51 mmHg mmHg 02/07/2024 9:25 EDT Heart Rate Monitored 73 bpm bpm Respiratory Rate - Anes 14 br/min br/min Systolic Blood Pressure Non-Invasive 130 mmHg mmHg Diastolic Blood Pressure Non-Invasive 46 mmHg mmHg 02/07/2024 9:20 EDT Heart Rate Monitored 74 bpm bpm Respiratory Rate - Anes 17 br/min br/min Systolic Blood Pressure Non-Invasive 128 mmHg mmHg Diastolic Blood Pressure Non-Invasive 40 mmHg mmHg 02/07/2024 9:17 EDT Systolic Blood Pressure Non-Invasive 152 mmHg mmHg Diastolic Blood Pressure Non-Invasive 43 mmHg mmHg 02/07/2024 9:15 EDT Respiratory Rate - Anes 0 br/min br/min 02/07/2024 8:07 EDT Temperature Temporal Artery 36.3 DegC Apical Heart Rate 71 bpm Respiratory Rate 18 br/min Systolic Blood Pressure Non-Invasive 169 mmHg HI Diastolic Blood Pressure Non-Invasive 60 mmHg . Mental status: alert & oriented x 4. Respiratory function: lungs are clear to auscultation. Respiratory support: none. CV function: Normal rate. Cardiovascular support: none. Pain. Nausea status: see nursing documentation of medications. Postoperative hydration status: within normal limits. Digitally Signed by JIAN RIVERA on 02/07/2024 09:35 AM [facility]07-22-2024 Note HODGES ADMISSION HISTORY AND PHYSICIAL CHIEF COMPLAINT: HISTORY OF PRESENT ILLNESS: REVIEW OF SYSTEMS: ACTIVE PROBLEMS: (1) GERD (gastroesophageal reflux disease) ([id number]) MEDICATIONS: Active Inpt Meds: None Active PRN Meds: None One Time Meds: None Active IV Meds: Lactated Ringers Infusion 1,000 mL Start: 02/07/24 7:58:00 EDT, Rate: 20 mL/hr, 02/07/24 7:58:00 EDT ALLERGIES: (1) Contrast dye FAMILY HISTORY: SOCIAL HISTORY: PHYSICAL EXAM: VITALS: [id number]A3ZexqWt(kg) 02/06 08:0736.3--219045--63/22 59.1 02/06 59.1 24 Hr Tmax: 36.3 at 02/06 08:07 36 Hr Tmax: 36.3 at 02/06 08:07 Vital Signs are the last 5 in the past 48 hours. Weights display the last 5 within 7 days. Initial Wt: 02/06 59.1 kg 130 lb Current Wt: 02/06 59.1 kg 130 lb GENERAL: HEENT: CARDIOVASCULAR: RESPIRATORY: ABDOMEN: EXREMETIES: NEUROLOGICAL: PSYCHIATRIC: LABS: No 36hr Lab Data DIAGNOSTICS: IMPRESSION: PLAN: History and Physical Update I have examined the patient; reviewed the H&P and there are no changes to the H&P unless noted below. Digitally Signed by YADIEL ROBERSON MD on 02/07/2024 09:17 AM [facility]07-22-2024 Anesthesiology Consult note Patient: FEI ROGERS Age: 88 years Sex: Male : 1935 Associated Diagnoses: None Author: JIAN RIVERA 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 Preoperative Information Anesthesia history Patient's history: negative. Family's history: negative. Review of Systems Ear/Nose/Mouth/Throat: Negative except as documented in history of present illness. Respiratory: Negative except as documented in history of present illness. Cardiovascular: Negative except as documented in history of present illness. Gastrointestinal: Negative except as documented in history of present illness. Genitourinary: Negative except as documented in history of present illness. Endocrine: Negative except as documented in history of present illness. Musculoskeletal: Negative except as documented in history of present illness. Integumentary: Negative except as documented in history of present illness. Neurologic: Negative except as documented in history of present illness. Health Status Allergies: Allergic Reactions (Selected) Severity Not Documented Contrast dye- No reactions were documented., Allergies (1) ActiveSeverityReaction Contrast dyeNone Documented Current medications: (Selected) Inpatient Medications Ordered Lactated Ringers Infusion 1,000 mL: 20 mL/hr, Intravenous Documented Medications Documented Lopressor 25mg--USE metoprolol tartrate 25 mg oral tablet: 25 mg, 1 tab(s), 0 Refill(s) Vitamin D3: 10 mcg, 1 tab(s), Oral, Daily, 0 Refill(s) amLODIPine 10 mg oral tablet: 10 mg, 1 tab(s), Oral, qDay, 90 tab(s), 0 Refill(s) aspirin 81 mg oral delayed release tablet: 81 mg, 1 tab(s), Oral, Daily, 0 Refill(s) atorvastatin 20 mg oral tablet: 20 mg, 1 tab(s), Oral, Daily, 100 tab(s), 0 Refill(s) hydroCHLOROthiazide 25 mg oral tablet: 25 mg, 1 tab(s), Oral, Daily, 0 Refill(s), Medications (1) Active Scheduled: (0) Continuous: (1) Lactated Ringers 1,000 mL 1,000 mL, Intravenous, 20 mL/hr PRN: (0) Problem list: No problem items selected or recorded., Active Problems (1) GERD (gastroesophageal reflux disease) Histories Past Medical History: No active or resolved past medical history items have been selected or recorded. Family History: No family history items have been selected or recorded. Procedure history: Hand surgery ([id number]). 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 Ankle ([id number]). Comments: 12/27/2023 10:45 Archana Bates RN PIN IN ANKLE Social History: Social & Psychosocial Habits Alcohol 12/27/2023 Use: Current Frequency: 1-2 times per year Substance Abuse 12/27/2023 Use: Never Tobacco 12/27/2023 Tobacco Use: Never (less than 100 in l Home/Environment 12/27/2023 Living situation: Home/Independent Safe place to go: Yes Nutrition/Health 12/27/2023 Type of diet: Low sodium Physical Examination Vital Signs 02/07/2024 8:07 EDT Temperature Temporal Artery 36.3 DegC Apical Heart Rate 71 bpm Respiratory Rate 18 br/min Systolic Blood Pressure Non-Invasive 169 mmHg HI Diastolic Blood Pressure Non-Invasive 60 mmHg Vital Signs (last 24 hrs) Last Charted Temp Dauybgha54.3 DegC (FEB 06 08:07) Heart Rate Xetyxl09 bpm (FEB 06 08:07) SBPH 169 mmHg (FEB 06 08:07) DBP60 mmHg (FEB 06 08:07) BMI21.01 (FEB 06 08:14) Measurements from flowsheet : Measurements 02/07/2024 8:14 EDT Height 167.7 cm Admission Weight 59.1 kg Bradford Body Weight 63.85 kg BSA Admission 1.67 Body Mass Index 21.01 kg/m2 02/07/2024 8:07 EDT Height 167.7 cm Admission Weight 59.1 kg Bradford Body Weight 63.85 kg Admission Body Mass Index 21.01 m2 Pain assessment: Pain Assessment 02/07/2024 8:07 EDT Primary Pain Intensity 0 Pain Scale Type 0-10 Pain scale . General: Alert and oriented. Airway: Normal neck range of motion. Mallampati classification: II (soft palate, fauces, uvula visible). Head: Normocephalic. Dentition Evaluation: Intact, Own teeth. Neck: Full range of motion. Respiratory: Lungs are clear to auscultation. Cardiovascular: Normal rate. Heart Sounds: Normal. Gastrointestinal: Soft. Musculoskeletal Normal range of motion. Integumentary: Intact, Warm, Dry. Neurologic: Alert, Oriented. Review / Management Results review: No qualifying data available , Lab results 02/07/2024 8:31 EDT Lactated Ringers Injection Begin Bag 1,000 mL mL 02/07/2024 8:29 EDT Continuous IV Infusions LR Antecubital Left 02/07/2024 22 gauge Peripheral IV Activity: Insert new site Peripheral IV Dressing Condition: Clean, Dry, Intact Peripheral IV Dressing Activity: Applied, Transparent dressing Peripheral IV Line Status/Patency: Continuous infusion Peripheral IV Site Condition: No complications Peripheral IV Equipment: Extension set Peripheral IV Number of Attempts: 2 02/07/2024 8:14 EDT Designated Person #1 We May Share [facility] Designated Person #1 We May Share [facility] Designated Person #1 Relationship Spouse Height 167.7 cm Admission Weight 59.1 kg Bradford Body Weight 63.85 kg BSA Admission 1.67 Body Mass Index 21.01 kg/m2 Status N/A Sensory Deficits None Infectious Disease Symptoms Patient states no symptoms Infectious Disease Recent Exposure No Alcohol and Drug Use No Employee of Institutional Living No Health Care Employee No History of Exposure to TB No History of Positive Chest X-Ray for TB No History of Positive TB Skin Test No Homeless No Known Immunosuppression No Recent Immigrant No Resident of Institutional Living No Bloody Sputum No Fatigue No Fever No Loss of Appetite No Night Sweats No Persistent Cough > 3 Weeks No Weight Loss No Barriers to Learning None evident Teaching Method Explanation, Printed materials Preferred Spoken Language Salvadorean Preferred Written Language Salvadorean Information Given by Patient Patient's Current Physicians Patient's Current Physicians Discharge To, Anticipated Home with family care Prev Test Positive/Diagnosis w/COVID-19 No Current Quarantine/Isolated any Illness No Any Contact with Sick Animals/Birds No Traveled Anywhere in Last 30 Days No N/A Personal Devices, Patient Valuables Dentures, partial plate, Dentures, upper, Glasses, Hearing aid,left, Hearing aid, right Admission Note-Nursing Procedure/Therapy Intake 02/07/2024 8:07 EDT Height 167.7 cm Admission Weight 59.1 kg Bradford Body Weight 63.85 kg Admission Body Mass Index 21.01 m2 Temperature Temporal Artery 36.3 DegC Apical Heart Rate 71 bpm Respiratory Rate 18 br/min Systolic Blood Pressure Non-Invasive 169 mmHg HI Diastolic Blood Pressure Non-Invasive 60 mmHg Primary Pain Intensity 0 Pain Scale Type 0-10 Pain scale Heart Sounds ICU S1S2 Heart Rhythm Regular All Lobes Breath Sounds Clear, Diminished Oxygen Saturation 95 % Abdomen Description Non-distended Bowel Sounds All Quadrants Present Skin Temperature Warm Skin Description [place], Dry Skin Integrity Intact Mucous Membrane Color [place] Skin Moisture General Dry Characteristics of Speech Clear Level of Consciousness Alert Strength All Extremities Strong Affect/Behavior Appropriate, Calm, Cooperative Orientation Oriented x 4 Patient Identified Identification band, Verbal Arrival Mode Ambulatory Alicia Motor (2) Moves 4 extremities voluntarily or on command Alicia Respirations (2) Spontaneous respiration without support, RR > 10 Alicia Blood Pressure (2) BP 20% above or below preanesthetic level Alicia Pulse (2) Pulse 20% above or below preanesthetic level Alicia Oxygen Saturation (2) 94% or more Alicia Level of Consciousness (2) Fully awake Alicia III Score 12 Standard Safety ID band on, Allergy Band on, Call device within reach, Bed in low position, Wheels locked . Assessment and Plan [place] [employer] Anesthesiologists (ASA) physical status classification: Class III. Anesthetic Preoperative Plan Premedication: intravenous. Anesthetic technique: MAC. Induction: intravenously. Maintenance airway: Mask. Risks discussed: nausea, vomiting, headache, sore throat, dental injury, hypotension, allergic reaction, serious complications. Informed consent: signed by patient. Digitally Signed by JIAN RIVERA on 02/07/2024 09:10 AM [facility]06-17-2024 Evaluation + Plan noteExtracted from: Title:Clinical Document Author:YADIEL ROBERSON Date:01/03/24 HODGES ADMISSION HISTORY AN D PHYSICIAL CHIEF COMPLAINT: HISTORY OF PRESENT ILLNESS: REVIEW OF SYSTEMS: ACTIVE PROBLEMS: (1) GERD (gastroesophageal reflux disease) ([id number]) MEDICATIONS: Active Inpt Meds: None Active PRN Meds: None One Time Meds: None Active IV Meds: Lactated Ringers Infusion 1000 mL (LR 1000 mL) Start: 01/03/24 9:28:00 EDT, Rate: 20 mL/hr, 01/03/24 9:28:00 EDT ALLERGIES: (1) Contrast dye FAMILY HISTORY: SOCIAL HISTORY: PHYSICAL EXAM: VITALS: XmzxixOsxsMNCnhqpEYFdW3CIA4UotbGx(kg) 01/02 09:1436.3--[id number]/17 59.1 24 Hr Tmax: 36.3 at 01/02 09:14 36 Hr Tmax: 36.3 at 01/02 09:14 Vital Signs are the last 5 in the past 48 hours. Weights display the last 5 within 7 days. Initial Wt: 01/02 59.1 kg 130 lb Current Wt: 01/02 59.1 kg 130 lb GENERAL: HEENT: CARDIOVASCULAR: RESPIRATORY: ABDOMEN: EXREMETIES: NEUROLOGICAL: PSYCHIATRIC: LABS: No 36hr Lab Data DIAGNOSTICS: IMPRESSION: PLAN: History and Physical Update I have examined the patient; reviewed the H&P and there are no changes to the H&P unless noted below. [facility] 06-17-2024 Hospital Discharge instructions Patient Education 01/03/2024 10:03:43 Esophageal Dilatation Esophageal Dilatation Esophageal dilatation, also called esophageal dilation, is a procedure to widen or open (dilate) a blocked or narrowed part of the esophagus. The esophagus is the part of the body that moves food andliquid from the mouth to the stomach. You may need this procedure if: You have a buildup of scar tissue in your esophagus that makes it difficult, painful, or impossibleto swallow. This can be caused by gastroesophageal reflux disease (GERD). You have cancer of the esophagus. There is a problem with how food moves through your esophagus. In some cases, you may need this procedure repeated at a later time to dilate the esophagus gradually. Tell a health care provider about: Any allergies you have. All medicines you are taking, including vitamins, herbs, eye drops, creams, and xtbg-yqb-ujulahq medicines. Any problems you or family members have had with anesthetic medicines. Any blood disorders you have. Any surgeries you have had. Any medical conditions you have. Any antibiotic medicines you are required to take before dental procedures. Whether you are or may be . What are the risks? Generally, this is a safe procedure. However, problems may occur, including: Bleeding due to a tear in the lining of the esophagus. A hole (perforation) in the esophagus. What happens before the procedure? Follow instructions from your health care provider about eating or drinking restrictions. Ask your health care provider about changing or stopping your regular medicines. This is especiallyimportant if you are taking diabetes medicines or blood thinners. Plan to have someone take you home from the hospital or clinic. Plan to have a responsible adult care for you for at least 24 hours after you leave the hospital orclinic. This is important. What happens during the procedure? You may be given a medicine to help you relax (sedative). A numbing medicine may be sprayed into the back of your throat, or you may gargle the medicine. Your health care provider may perform the dilatation using various surgical instruments, such as: ?Simple dilators. This instrument is carefully placed in the esophagus to stretch it. ?Guided wire bougies. This involves using an endoscope to insert a wire into the esophagus. A dilator is passed over this wire to enlarge the esophagus. Then the wire is removed. ?Balloon dilators. An endoscope with a small balloon at the end is inserted into the esophagus. Theballoon is inflated to stretch the esophagus and open it up. The procedure may vary among health care providers and hospitals. What happens after the procedure? Your blood pressure, heart rate, breathing rate, and blood oxygen level will be monitored until themedicines you were given have worn off. Your throat may feel slightly sore and numb. This will improve slowly over time. You will not be allowed to eat or drink until your throat is no longer numb. When you are able to drink, urinate, and sit on the edge of the bed without nausea or dizziness, you may be able to return home. Follow these instructions at home: Take ttsj-avo-ajugvra and prescription medicines only as told by your health care provider. Do not drive for 24 hours if you were given a sedative during your procedure. You should have a responsible adult with you for 24 hours after the procedure. Follow instructions from your health care provider about any eating or drinking restrictions. Do not use any products that contain nicotine or tobacco, such as cigarettes and e-cigarettes. If you need help quitting, ask your health care provider. Keep all follow-up visits as told by your health care provider. This is important. Get help right away if you: Have a fever. Have chest pain. Have pain that is not relieved by medication. Have trouble breathing. Have trouble swallowing. Vomit blood. Summary Esophageal dilatation, also called esophageal dilation, is a procedure to widen or open (dilate) a blocked or narrowed part of the esophagus. Plan to have someone take you home from the hospital or clinic. For this procedure, a numbing medicine may be sprayed into the back of your throat, or you may gargle the medicine. Do not drive for 24 hours if you were given a sedative during your procedure. This information is not intended to replace advice given to you by your health care provider. Make sure you discuss any questions you have with your health care provider. Document Released: 08/26/2006 Document Revised: 06/17/2018 Document Reviewed: 05/10/2018 [employer] Patient Education 2020 [employer]. 01/03/2024 10:03:19 Monitored Anesthesia Care, Care After Monitored Anesthesia Care, Care After These instructions provide you with information about caring for yourself after your procedure. Your health care provider may also give you more specific instructions. Your treatment has been plannedaccording to current medical practices, but problems sometimes occur. Call your health care provider if you have any problems or questions after your procedure. What can I expect after the procedure? After your procedure, you may: Feel sleepy for several hours. Feel clumsy and have poor balance for several hours. Feel forgetful about what happened after the procedure. Have poor judgment for several hours. Feel nauseous or vomit. Have a sore throat if you had a breathing tube during the procedure. Follow these instructions at home: For at least 24 hours after the procedure: Have a responsible adult stay with you. It is important to have someone help care for you until youare awake and alert. Rest as needed. Do not: ?Participate in activities in which you could fall or become injured. ?Drive. ?Use heavy machinery. ?Drink alcohol. ?Take sleeping pills or medicines that cause drowsiness. ?Make important decisions or sign legal documents. ?Take care of children on your own. Eating and drinking Follow the diet that is recommended by your health care provider. If you vomit, drink water, juice, or soup when you can drink without vomiting. Make sure you have little or no nausea before eating solid foods. General instructions Take zzmx-ehx-xwhybks and prescription medicines only as told by your health care provider. If you have sleep apnea, surgery and certain medicines can increase your risk for breathing problems. Follow instructions from your health care provider about wearing your sleep device: ?Anytime you are sleeping, including during daytime naps. ?While taking prescription pain medicines, sleeping medicines, or medicines that make you drowsy. If you smoke, do not smoke without supervision. Keep all follow-up visits as told by your health care provider. This is important. Contact a health care provider if: You keep feeling nauseous or you keep vomiting. You feel light-headed. You develop a rash. You have a fever. Get help right away if: You have trouble breathing. Summary For several hours after your procedure, you may feel sleepy and have poor judgment. Have a responsible adult stay with you for at least 24 hours or until you are awake and alert. This information is not intended to replace advice given to you by your health care provider. Make sure you discuss any questions you have with your health care provider. Document Released: 10/25/2016 Document Revised: 10/03/2018 Document Reviewed: 10/25/2016 [employer] Patient Education 2020 [employer]. 01/03/2024 10:03:12 9 - AO Minor Esophagogastroduodenoscopy (09/29)(CUSTOM) Esophagogastroduodenoscopy This is an endoscopic procedure (a procedure that uses a device like a flexible telescope) that allows your caregiver to view the upper stomach and small bowel. This test allows your caregiver to look at the esophagus. The esophagus carries food from your mouth to your stomach. They can also look at your duodenum. This is the first part of the small intestine that attaches to the stomach. This test is used to detect problems in the bowel such as ulcers and inflammation. MEANING OF TEST Your caregiver will go over the test results with you and discuss the importance and meaning of your results, as well as treatment options and the need for additional tests if necessary. OBTAINING THE TEST RESULTS Your caregiver s office will call you with the results of the test. POST SEDATION INSTRUCTIONS Rest at home today. Since your coordination may be impaired, be cautious on stairways, do not drive any vehicle or operate any heavy machinery, or use any sharp instruments for the remainder of the day. Do not drink any alcoholic beverages or make any major decisions for 24 hours. POST PROCEDURE INSTRUCTIONS Progress slowly with full liquids then resume previous diet and medications. Belching or passing of gas is to be expected. Notify the physician if you have severe chest pain, fever, or if difficulty when swallowing persists. 09/26/13 Custom Follow Up Care 01/03/2024 08:41:26 With:YADIEL ROBERSON MD Address: [address] [phone] When: Unknown Comments:Follow-up as needed [facility] 06-17-2024 Note Date of Service January 03, 2024 Procedure Name EGD with balloon dilatation of stricture in the esophagus and biopsy of the stricture. Consent Taken before procedure Indication Patient with dysphagia and esophageal stricture Location [facility] Pre-Procedure Exam Patient with known esophageal stricture Procedural Sedation Anesthesia provided a MAC Technique The patient was brought to the endoscopy suite and placed left shoulder down. Scope was passed visualization down to the esophagus the proximal esophagus appeared normal there was a stent noted in centimeters from the incisors a CRE balloon size 04/28/2012 was placed across the stricture with a guidewire extended and the balloon was inflated to 2 laurel then increase by 1 laurel each time until 7 laurel which was greater than 11 mm diameter. Point this was felt to be sufficient for today's session and was withdrawn scope was easily passed by the stricture next large hiatal hernia extending for about 2cm. Was easy insufflated there were no abnormalities of bulbar duodenum was normal the sweep of the duodenum was normal. Reflexion performed the stomach showed a large hiatal hernia. At the [id number] biopsies were taken with jumbo forceps of the stricture for pathology. Endoscope was withdrawn and the patient tolerated the procedure well. Post-Procedure Exam Esophageal stricture dilated and biopsied a long segment of Bales's mucosa. Findings Esophageal stricture with Bales's mucosa Complications None apparent Assessment/Plan Orders: Lactated Ringers Infusion 1000 mL(LR 1000 mL), 1000 mL, Intravenous Bedrest, 01/03/24 10:10:00 EDT, Strict, continuous, Constant order, Lying on side until alert or asordered Bedrest, 01/03/24 10:10:00 EDT, Strict, continuous, Constant order, Lying on side until alert or asordered Call Parameters, 01/03/24 10:10:00 EDT, Notify for vomiting, severe pain, signs of bleeding, severeabdominal pain, distention or rigidity, Constant order Diet Order, 01/03/24 10:10:00 EDT, Start Meal: Next meal, Clear Liquid Diet, Post exam or after gagreflex returns if EGD, Constant Order, : N/A, : N/A Discharge Activity, NO activity restrictions, 01/03/24 10:10:00 EDT Discharge Diet, Follow the post-operative/post-procedure diet instructions provided by your physician's office., 01/03/24 10:10:00 EDT Discharge Wound Care, Follow the post-operative/post-procedure wound care instructions provided by your physician's office., 01/03/24 10:10:00 EDT IV Catheter Insertion/Care, 01/03/24 9:28:00 EDT, IV Care: q4h, Rotate when clinically indicated & q7day drsg change NPO, 01/03/24 9:28:00 EDT, Constant Order Pathology Tissue Request, 01/03/24 9:55:00 EDT, Collected, Routine, Nurse Collect, AP Specimen, ESOPHAGEAL STRICTURE, SEE H&P, ESOPHAGOGASTRODUODENOSCOPY, DYSPHAGIA, DYSPHAGIA, [id number] Post Procedure Assessment, 01/03/24 10:10:00 EDT, Stop Date 01/03/24 10:10:00 EDT, [facility] until Alicia Score of 12 or Preprocedure Prn Adapter, 01/03/24 9:28:00 EDT Sign Consent, 01/03/24 9:28:00 EDT, Once, Surgery/Procedure Vital Signs, 01/03/24 9:28:00 EDT, 01/03/24 9:28:00 EDT Vital Signs, 01/03/24 10:10:00 EDT, q15min, 1 hour(s), 01/03/24 11:00:00 EDT Vital Signs, 01/03/24 10:10:00 EDT, q30min, 1 hour(s), 01/03/24 11:00:00 EDT Vital Signs PRN, 01/03/24 10:10:00 EDT, PRN order Follow Up/Recommendation Follow-up the biopsies continue the patient on a PPI indefinitely Digitally Signed by YADIEL ROBERSON MD on 01/03/2024 10:14 AM [facility]06-17-2024 Summary of episode note Discharge Instructions Thank you for allowing [facility] to assist you with your healthcare needs. The following is importantdischarge information regarding your hospital visit. Your Care Team AMANDA DAVIS DO Your Diagnosis EGD What to do next Follow Up Appointments Follow Up with YADIEL ROBERSON MD Where:[address] [place] [address]- [phone] Additional Information: Follow-up as needed The Following Activity and Diet Have Been Ordered for You Discharge Activity - Ordered -- NO activity restrictions, 01/03/24 10:10:00 EDT Discharge Diet - Ordered -- Follow the post-operative/post-procedure diet instructions provided by your physician's office.,01/03/24 10:10:00 EDT The Following Equipment Has Been Ordered for You Discharge Home Equipment Discharge Wound Care - Ordered -- Follow the post-operative/post-procedure wound care instructions provided by your physician's office., 01/03/24 10:10:00 EDT Allergies Contrast dye Medications Please ask your primary doctor or pharmacist before taking any other medication not listed, including over the counter drugs, herbal medications, vitamins and or supplements as they may interact withyour home medications. What How Much When Instructions Last Dose Unchanged amLODIPine (amLODIPine 10 mg oral tablet) 1 tab(s) by mouth Once a day Unchanged aspirin (aspirin 81 mg oral delayed release tablet) 1 tab(s) by mouth Every day Unchanged atorvastatin (atorvastatin 20 mg oral tablet) 1 tab(s) by mouth Every day Unchanged cholecalciferol (Vitamin D3) 10 Microgram by mouth Every day Unchanged hydroCHLOROthiazide (hydroCHLOROthiazide 25 mg oral tablet) 1 tab(s) by mouth Every day Unchanged metoprolol (Lopressor 25mg--USE metoprolol tartrate 25 mg oral tablet) 1 tab(s) Please take this list to your next doctor s visit. Bring all medications you take, including over the counter medications, herbals and other supplements with you to your doctor s visit. Patients and families are reminded to discard old lists and to update any records with all medication providers or retail pharmacies. Education Materials Esophageal Dilatation Esophageal dilatation, also called esophageal dilation, is a procedure to widen or open (dilate) a blocked or narrowed part of the esophagus. The esophagus is the part of the body that moves food andliquid from the mouth to the stomach. You may need this procedure if: You have a buildup of scar tissue in your esophagus that makes it difficult, painful, or impossibleto swallow. This can be caused by gastroesophageal reflux disease (GERD). You have cancer of the esophagus. There is a problem with how food moves through your esophagus. In some cases, you may need this procedure repeated at a later time to dilate the esophagus gradually. Tell a health care provider about: Any allergies you have. All medicines you are taking, including vitamins, herbs, eye drops, creams, and zmvq-akx-stoftno medicines. Any problems you or family members have had with anesthetic medicines. Any blood disorders you have. Any surgeries you have had. Any medical conditions you have. Any antibiotic medicines you are required to take before dental procedures. Whether you are or may be . What are the risks? Generally, this is a safe procedure. However, problems may occur, including: Bleeding due to a tear in the lining of the esophagus. A hole (perforation) in the esophagus. What happens before the procedure? Follow instructions from your health care provider about eating or drinking restrictions. Ask your health care provider about changing or stopping your regular medicines. This is especiallyimportant if you are taking diabetes medicines or blood thinners. Plan to have someone take you home from the hospital or clinic. Plan to have a responsible adult care for you for at least 24 hours after you leave the hospital orclinic. This is important. What happens during the procedure? You may be given a medicine to help you relax (sedative). A numbing medicine may be sprayed into the back of your throat, or you may gargle the medicine. Your health care provider may perform the dilatation using various surgical instruments, such as: ? Simple dilators. This instrument is carefully placed in the esophagus to stretch it. ? Guided wire bougies. This involves using an endoscope to insert a wire into the esophagus. A dilator is passed over this wire to enlarge the esophagus. Then the wire is removed. ? Balloon dilators. An endoscope with a small balloon at the end is inserted into the esophagus. The balloon is inflated to stretch the esophagus and open it up. The procedure may vary among health care providers and hospitals. What happens after the procedure? Your blood pressure, heart rate, breathing rate, and blood oxygen level will be monitored until themedicines you were given have worn off. Your throat may feel slightly sore and numb. This will improve slowly over time. You will not be allowed to eat or drink until your throat is no longer numb. When you are able to drink, urinate, and sit on the edge of the bed without nausea or dizziness, you may be able to return home. Follow these instructions at home: Take faxn-hsm-qwrruce and prescription medicines only as told by your health care provider. Do not drive for 24 hours if you were given a sedative during your procedure. You should have a responsible adult with you for 24 hours after the procedure. Follow instructions from your health care provider about any eating or drinking restrictions. Do not use any products that contain nicotine or tobacco, such as cigarettes and e-cigarettes. If you need help quitting, ask your health care provider. Keep all follow-up visits as told by your health care provider. This is important. Get help right away if you: Have a fever. Have chest pain. Have pain that is not relieved by medication. Have trouble breathing. Have trouble swallowing. Vomit blood. Summary Esophageal dilatation, also called esophageal dilation, is a procedure to widen or open (dilate) a blocked or narrowed part of the esophagus. Plan to have someone take you home from the hospital or clinic. For this procedure, a numbing medicine may be sprayed into the back of your throat, or you may gargle the medicine. Do not drive for 24 hours if you were given a sedative during your procedure. This information is not intended to replace advice given to you by your health care provider. Make sure you discuss any questions you have with your health care provider. Document Released: 08/26/2006 Document Revised: 06/17/2018 Document Reviewed: 05/10/2018 [employer] Patient Education 2020 [employer]. Monitored Anesthesia Care, Care After These instructions provide you with information about caring for yourself after your procedure. Your health care provider may also give you more specific instructions. Your treatment has been plannedaccording to current medical practices, but problems sometimes occur. Call your health care provider if you have any problems or questions after your procedure. What can I expect after the procedure? After your procedure, you may: Feel sleepy for several hours. Feel clumsy and have poor balance for several hours. Feel forgetful about what happened after the procedure. Have poor judgment for several hours. Feel nauseous or vomit. Have a sore throat if you had a breathing tube during the procedure. Follow these instructions at home: For at least 24 hours after the procedure: Have a responsible adult stay with you. It is important to have someone help care for you until youare awake and alert. Rest as needed. Do not: ? Participate in activities in which you could fall or become injured. ? Drive. ? Use heavy machinery. ? Drink alcohol. ? Take sleeping pills or medicines that cause drowsiness. ? Make important decisions or sign legal documents. ? Take care of children on your own. Eating and drinking Follow the diet that is recommended by your health care provider. If you vomit, drink water, juice, or soup when you can drink without vomiting. Make sure you have little or no nausea before eating solid foods. General instructions Take qxho-inj-mudcqcx and prescription medicines only as told by your health care provider. If you have sleep apnea, surgery and certain medicines can increase your risk for breathing problems. Follow instructions from your health care provider about wearing your sleep device: ? Anytime you are sleeping, including during daytime naps. ? While taking prescription pain medicines, sleeping medicines, or medicines that make you drowsy. If you smoke, do not smoke without supervision. Keep all follow-up visits as told by your health care provider. This is important. Contact a health care provider if: You keep feeling nauseous or you keep vomiting. You feel light-headed. You develop a rash. You have a fever. Get help right away if: You have trouble breathing. Summary For several hours after your procedure, you may feel sleepy and have poor judgment. Have a responsible adult stay with you for at least 24 hours or until you are awake and alert. This information is not intended to replace advice given to you by your health care provider. Make sure you discuss any questions you have with your health care provider. Document Released: 10/25/2016 Document Revised: 10/03/2018 Document Reviewed: 10/25/2016 [employer] Patient Education 2020 [employer]. Esophagogastroduodenoscopy This is an endoscopic procedure (a procedure that uses a device like a flexible telescope) that allows your caregiver to view the upper stomach and small bowel. This test allows your caregiver to look at the esophagus. The esophagus carries food from your mouth to your stomach. They can also look at your duodenum. This is the first part of the small intestine that attaches to the stomach. This test is used to detect problems in the bowel such as ulcers and inflammation. MEANING OF TEST Your caregiver will go over the test results with you and discuss the importance and meaning of your results, as well as treatment options and the need for additional tests if necessary. OBTAINING THE TEST RESULTS Your caregiver s office will call you with the results of the test. POST SEDATION INSTRUCTIONS Rest at home today. Since your coordination may be impaired, be cautious on stairways, do not drive any vehicle or operate any heavy machinery, or use any sharp instruments for the remainder of the day. Do not drink any alcoholic beverages or make any major decisions for 24 hours. POST PROCEDURE INSTRUCTIONS Progress slowly with full liquids then resume previous diet and medications. Belching or passing of gas is to be expected. Notify the physician if you have severe chest pain, fever, or if difficulty when swallowing persists. 09/26/13 Custom Additional Information VACCINATE! IT SAVES LIVES! Members of the community who have not yet received the COVID-19 vaccine and would like to receive it can visit one of [facility] vaccine clinics. There are many vaccine clinic locations within the [facility]. For locations and available times, please visit [email or web address] It is important to note that some COVID mobile vaccine clinics are held outdoors and may be canceled in rainy or stormy conditions. To learn more about pediatric vaccinations (ages 5-11), we invite you to visit the [facility] webpage. [email or web address]/[email or web address]-[email or web address] [email or web address] learn more about the COVID-19 vaccine, we invite you to visit the CDC website for a list of frequently asked questions.https://www.cdc.gov/coronavirus/2019-ncov/vaccines/faq.html [employer] Patient Portal Access Instructions: Stay connected with your healthcare team and access your personal medical information anytime with the [employer] Patient Portal. Please follow the directions below to create your [employer] account: 1.Access the email account you provided upon registration to the hospital/physician office.2.Look for an invitation email from [facility].3.Open the email and access the invitation link: AcceptInvitation to [employer].4.Fill in the required gomez to create your account. To access your account, visit [employer]/The Shared [employer]. Click the blue button labeled Access Patient Portal and then log in with the username and password that you created in the steps above. You will be able to view your test results, lab results, a summary of your visits, upcoming appointments and more. There is also a convenient messaging option where you can send secure messages to your p [employer]. In addition, you will have the ability to download any documents or summaries to your computer and/or send the information securely to a physician. Remember that your healthcare information is confidential, so carefully consider who you will allowto register on the [employer] Patient Portal for access to your information. You can also access the [employer] Patient Portal on the [employer] melany. Simply click on Patient Portal and then log into your account. If you would like to receive a full copy of your medical records, please contact the [facility] Medical Records Department by calling [phone], Wednesday through Wednesday between 8 a.m. and 4:30 p.m. HOW TO SAFELY DISPOSE OF PRESCRIPTION MEDICATIONS Please use one of the following methods to safely dispose of your unused medications. 1.Use a drug disposal kit: the drug disposal pouch allows you to safely discard your old and unuseddrugs. Ask your nurse to give you one when you are discharged.2.Visit a local take-back location: Many local pharmacies and police departments have programs that collect old and unwanted prescriptiondrugs. Call your local pharmacy or go to http://StudioSnaps.ZEB/7M8Gh4k to find one close to you.3.Make use of household items: Use cat litter or old coffee grounds to dispose medications if other options arenot available. Mix your drugs with these household products, seal them in an airtight container andthrow it into the garbage. Call [facility]: [phone] to be sure your drugs can be disposed of in this way. Some medicines may require a different approach.4.Never flush your medications down the toilet. IF YOU HAVE BEEN PRESCRIBED AN OPIOID FOR PAIN If you have been prescribed an opioid (such as hydrocodone, oxycodone or morphine), it is critical to understand the possible side effects and risks of opioid pain medications. Even when taken as directed, opioids can have several side effects including: Tolerance, meaning you might need to take more of a medication for the same pain relief. Nausea, vomiting and/or constipation. Sleepiness, dizziness, dry mouth, confusion, depression or itching. Physical dependence, meaning you have withdrawal symptoms when a medication is stopped, can develop within a few days. KNOW YOUR RESPONSIBILITIES It is important to know exactly how much and how often to take the opioid pain medications you are prescribed. Never take opioids in higher amounts or more often than prescribed. Do not combine opioids with alcohol or other drugs that cause drowsiness, such as benzodiazepines, also known as benzos, including diazepam and alprazolam, muscle relaxants or sleep aids. Never sell or share prescription opioids. This is illegal. Store opioids in a secure place and out of reach of others (including children, family, friends and visitors). The last page of this document has been signed and retained as a CHART COPY. Signatures Patient Education Materials Esophageal Dilatation Monitored Anesthesia Care, Care After 9 - AO Minor Esophagogastroduodenoscopy (09/29)(CUSTOM) Medication Leaflets My discharge plan and instructions have been reviewed and explained to me and I,FEI ROGERS understand my current condition and have read and understand these discharge instructions. I have received a written copy of the plan/instructions. If I have questions, I am aware that I should contact my doctor. Patient/Draw String Knotter Signature: Date/Time: Relationship to Patient: Witness Name/Signature: Date/Time: [facility]06-17-2024 Note HODGES ADMISSION HISTORY AND PHYSICIAL CHIEF COMPLAINT: HISTORY OF PRESENT ILLNESS: REVIEW OF SYSTEMS: ACTIVE PROBLEMS: (1) GERD (gastroesophageal reflux disease) ([id number]) MEDICATIONS: Active Inpt Meds: None Active PRN Meds: None One Time Meds: None Active IV Meds: Lactated Ringers Infusion 1000 mL (LR 1000 mL) Start: 01/03/24 9:28:00 EDT, Rate: 20 mL/hr, 01/03/24 9:28:00 EDT ALLERGIES: (1) Contrast dye FAMILY HISTORY: SOCIAL HISTORY: PHYSICAL EXAM: VITALS: [id number](kg) 01/02 09:1436.3--[id number] 59.1 24 Hr Tmax: 36.3 at 01/02 09:14 36 Hr Tmax: 36.3 at 01/02 09:14 Vital Signs are the last 5 in the past 48 hours. Weights display the last 5 within 7 days. Initial Wt: 01/02 59.1 kg 130 lb Current Wt: 01/02 59.1 kg 130 lb GENERAL: HEENT: CARDIOVASCULAR: RESPIRATORY: ABDOMEN: EXREMETIES: NEUROLOGICAL: PSYCHIATRIC: LABS: No 36hr Lab Data DIAGNOSTICS: IMPRESSION: PLAN: History and Physical Update I have examined the patient; reviewed the H&P and there are no changes to the H&P unless noted below. Digitally Signed by YADIEL ROBERSON MD on 01/03/2024 09:44 AM [facility]06-17-2024 Anesthesiology Consult note Patient: FEI ROGERS Age: 88 years Sex: Male : 1935 Associated Diagnoses: None Author: ROXANN GARCÍA Preoperative Information Anesthesia history Patient's history: negative. Family's history: negative. Health Status Allergies: Allergic Reactions (Selected) Severity Not Documented Contrast dye- No reactions were documented., Allergies (1) ActiveSeverityReaction Contrast dyeNone Documented Current medications: (Selected) Inpatient Medications Ordered LR 1000 mL: 20 mL/hr, Intravenous Documented Medications Documented Lopressor 25mg--USE metoprolol tartrate 25 mg oral tablet: 25 mg, 1 tab(s), 0 Refill(s) Vitamin D3: 10 mcg, 1 tab(s), Oral, Daily, 0 Refill(s) amLODIPine 10 mg oral tablet: 10 mg, 1 tab(s), Oral, qDay, 90 tab(s), 0 Refill(s) aspirin 81 mg oral delayed release tablet: 81 mg, 1 tab(s), Oral, Daily, 0 Refill(s) atorvastatin 20 mg oral tablet: 20 mg, 1 tab(s), Oral, Daily, 100 tab(s), 0 Refill(s) hydroCHLOROthiazide 25 mg oral tablet: 25 mg, 1 tab(s), Oral, Daily, 0 Refill(s), Medications (1) Active Scheduled: (0) Continuous: (1) Lactated Ringers Infusion 1000 mL 1,000 mL, Intravenous, 20 mL/hr PRN: (0) Problem list: Active Problems (1) GERD (gastroesophageal reflux disease) Histories Past Medical History: No active or resolved past medical history items have been selected or recorded. Family History: No family history items have been selected or recorded. Procedure history: Hand surgery ([id number]). 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 Ankle ([id number]). Comments: 12/27/2023 10:45 EDEN - Archana Hawthorne RN PIN IN ANKLE Social History: Social & Psychosocial Habits Alcohol 12/27/2023 Use: Current Frequency: 1-2 times per year Substance Abuse 12/27/2023 Use: Never Tobacco 12/27/2023 Tobacco Use: Never (less than 100 in l Home/Environment 12/27/2023 Living situation: Home/Independent Safe place to go: Yes Nutrition/Health 12/27/2023 Type of diet: Low sodium Physical Examination Vital Signs 01/03/2024 9:14 EDT Temperature Temporal Artery 36.3 DegC Apical Heart Rate 62 bpm Respiratory Rate 16 br/min Systolic Blood Pressure Non-Invasive 168 mmHg HI Diastolic Blood Pressure Non-Invasive 58 mmHg LOW Blood Pressure Method Automatic Blood Pressure Location Left arm Blood Pressure Cuff Size Medium Vital Signs (last 24 hrs) Last Charted Temp Fzlhrizl98.3 DegC (JAN 02 09:14) Heart Rate Pziqir07 bpm (JAN 02:14) SBPH 168 mmHg (JAN 02:14) DBPL 58 mmHg (JAN 02:14) BMI21.02 (JAN 02:14) Measurements from flowsheet : Measurements 01/03/2024 9:14 EDT Height 167.69 cm Admission Weight 59.1 kg Weight Method Stated Bradford Body Weight 63.85 kg BSA Admission 1.67 Body Mass Index 21.02 kg/m2 Pain assessment: Pain Assessment 01/03/2024 9:14 EDT Primary Pain Intensity 0 Pain Scale Type 0-10 Pain scale . General: Alert and oriented. Airway: Normal temporomandibular joint mobility. Mallampati classification: II (soft palate, fauces, uvula visible). Dentition Evaluation: Missing teeth. Respiratory: Lungs are clear to auscultation, Respirations are non-labored. Cardiovascular: Normal rate, Regular rhythm. Neurologic: Alert, Oriented. Review / Management Results review: No qualifying data available , Lab results 01/03/2024 9:37 EDT SN - Proc - Anesthesia Type MAC SN - Proc - Actual Procedure ESOPHAGOGASTRODUODENOSCOPY 01/03/2024 9:37 EDT SN - PP - Body Position Lateral Right Side-up Standard Intra-op 01/03/2024 9:36 EDT SN - GCD - Post-operative Diagnosis DYSPHAGIA SN - GCD - Case Level OPD Level 3 01/03/2024 9:36 EDT SN - CAt - Case Attendee SN - CAt - Case Attendee SN - CAt - Case Attendee SN - CAt - Case Attendee SN - CAt - Case Attendee SN - CAt - Case Attendee SN - CAt - Case Attendee SN - CAt - Case Attendee SN - CAt - Role Performed Primary Surgeon SN - CAt - Role 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 SN - CAt - Role Performed Cane Furniture Maker 1 SN - CAt - Role Performed Pull Up Hand 01/03/2024 9:29 EDT Lactated Ringers Injection Begin Bag 1,000 mL mL 01/03/2024 9:28 EDT Continuous IV Infusions LR Antecubital Left 01/03/2024 22 gauge Peripheral IV Activity: Insert new site Peripheral IV Dressing Condition: Clean, Dry, Intact Peripheral IV Dressing Activity: Applied, Transparent dressing Peripheral IV Line Status/Patency: Flushes easily, Continuous infusion Peripheral IV Site Condition: No complications Peripheral IV Equipment: Extension set 01/03/2024 9:14 EDT Designated Person #1 We May Share PHI Designated Person #1 We May Share PHI Designated Person #1 Relationship Spouse Height 167.69 cm Admission Weight 59.1 kg Weight Method Stated Bradford Body Weight 63.85 kg BSA Admission 1.67 Body Mass Index 21.02 kg/m2 Temperature Temporal Artery 36.3 DegC Apical Heart Rate 62 bpm Respiratory Rate 16 br/min Systolic Blood Pressure Non-Invasive 168 mmHg HI Diastolic Blood Pressure Non-Invasive 58 mmHg LOW Blood Pressure Method Automatic Blood Pressure Location Left arm Blood Pressure Cuff Size Medium Primary Pain Intensity 0 Pain Scale Type 0-10 Pain scale Heart Rhythm Regular Oxygen Therapy Room air Oxygen Saturation 97 % Status N/A Sensory Deficits None Infectious Disease Symptoms Patient states no symptoms Infectious Disease Recent Exposure No Alcohol and Drug Use No Employee of Institutional Living No Health Care Employee No History of Exposure to TB No History of Positive Chest X-Ray for TB No History of Positive TB Skin Test No Homeless No Known Immunosuppression No Recent Immigrant No Resident of Institutional Living No Bloody Sputum No Fatigue No Fever No Loss of Appetite No Night Sweats No Persistent Cough > 3 Weeks No Weight Loss No Arrival Mode Ambulatory Barriers to Learning None evident Teaching Method Explanation, Printed materials Preferred Spoken Language Salvadorean Preferred Written Language Salvadorean Information Given by Patient Patient's Current Physicians Patient's Current Physicians Discharge To, Anticipated Home independently Activity Status ADL Awake Standard Safety ID band on, Call device within reach, Bed in low position, Wheels locked, Upper/Half-Length side-rails up, Safety level maintained Prev Test Positive/Diagnosis w/COVID-19 No Current Quarantine/Isolated any Illness No Any Contact with Sick Animals/Birds No Traveled Anywhere in Last 30 Days No N/A Personal Devices, Patient Valuables Dentures, partial plate, Dentures, upper, Glasses, Hearing aid,left, Hearing aid, right Admission Note-Nursing Procedure/Therapy Intake . Assessment and Plan [place] [employer] (ASA) physical status classification: Class IV. Anesthetic Preoperative Plan Anesthetic technique: MAC. Postoperative pain management: Per surgeon. Risks discussed: nausea, vomiting, sore throat, dental injury, hypotension, allergic reaction, serious complications. Informed consent: signed by patient. Digitally Signed by ROXANN GARCÍA on 01/03/2024 09:39 AM [facility]06-10-2024 Evaluation + Plan noteExtracted from: Title:Clinical Document Author:YADIEL ROBERSON Date:12/27/23 [facility] ADMISSION HISTORY AN D PHYSICIAL CHIEF COMPLAINT: HISTORY OF PRESENT ILLNESS: REVIEW OF SYSTEMS: ACTIVE PROBLEMS: (1) GERD (gastroesophageal reflux disease) ([id number]) MEDICATIONS: Active Inpt Meds: None Active PRN Meds: None One Time Meds: None Active IV Meds: Lactated Ringers Infusion 1,000 mL (LR 1,000 mL) Start: 12/27/23 10:32:00 EDT, Rate: 50 mL/hr, 12/27/23 10:32:00 EDT ALLERGIES: (1) Contrast dye FAMILY HISTORY: SOCIAL HISTORY: PHYSICAL EXAM: VITALS: [id number](kg) 12/26 10:3436--[id number]/10 56.8 24 Hr Tmax: 36 at 12/26 10:34 36 Hr Tmax: 36 at 12/26 10:34 Vital Signs are the last 5 in the past 48 hours. Weights display the last 5 within 7 days. Initial Wt: 12/26 56.8 kg 125 lb Current Wt: 12/26 56.8 kg 125 lb GENERAL: HEENT: CARDIOVASCULAR: RESPIRATORY: ABDOMEN: EXREMETIES: NEUROLOGICAL: PSYCHIATRIC: LABS: No 36hr Lab Data DIAGNOSTICS: IMPRESSION: PLAN: History and Physical Update I have examined the patient; reviewed the H&P and there are no changes to the H&P unless noted below. [facility] 06-10-2024 Hospital Discharge instructions Patient Education 12/27/2023 11:36:24 Nausea and Vomiting, Adult, Yfqv-jo-Jacs Nausea and Vomiting, Adult Nausea is feeling sick to your stomach or feeling that you are about to throw up (vomit). Vomiting is when food in your stomach is thrown up and out of the mouth. Throwing up can make you feel weak. It can also make you lose too much water in your body (get dehydrated). If you lose too much water in your body, you may: Feel tired. Feel thirsty. Have a dry mouth. Have cracked lips. Go pee (urinate) less often. Older adults and people with other diseases or a weak body defense system (immune system) are at higher risk for losing too much water in the body. If you feel sick to your stomach and you throw up, it is important to follow instructions from your doctor about how to take care of yourself. Follow these instructions at home: Watch your symptoms for any changes. Tell your doctor about them. Follow these instructions to carefor yourself at home. Eating and drinking Take an ORS (oral rehydration solution). This is a drink that is sold at pharmacies and stores. Drink clear fluids in small amounts as you are able, such as: ?Water. ?Ice chips. ?Fruit juice that has water added (diluted fruit juice). ?Low-calorie sports drinks. Eat bland, xfhh-ym-btcmkx foods in small amounts as you are able, such as: ?Bananas. ?Applesauce. ?Rice. ?Low-fat (lean) meats. ?[place]. ?Crackers. Avoid drinking fluids that have a lot of sugar or caffeine in them. This includes energy drinks, sports drinks, and soda. Avoid alcohol. Avoid spicy or fatty foods. General instructions Take okiq-hje-agwhynp and prescription medicines only as told by your doctor. Drink enough fluid to keep your pee (urine) pale yellow. Wash your hands often with soap and water. If you cannot use soap and water, use hand sign language interpreter. Make sure that all people in your home wash their hands well and often. Rest at home while you get better. Watch your condition for any changes. Take slow and deep breaths when you feel sick to your stomach. Keep all follow-up visits as told by your doctor. This is important. Contact a doctor if: Your symptoms get worse. You have new symptoms. You have a fever. You cannot drink fluids without throwing up. You feel sick to your stomach for more than 2 days. You feel light-headed or dizzy. You have a headache. You have muscle cramps. You have a rash. You have pain while peeing. Get help right away if: You have pain in your chest, neck, arm, or jaw. You feel very weak or you pass out (faint). You throw up again and again. You have throw up that is bright red or looks like black coffee grounds. You have bloody or black poop (stools) or poop that looks like tar. You have a very bad headache, a stiff neck, or both. You have very bad pain, cramping, or bloating in your belly (abdomen). You have trouble breathing. You are breathing very quickly. Your heart is beating very quickly. Your skin feels cold and clammy. You feel confused. You have signs of losing too much water in your body, such as: ?Dark pee, very little pee, or no pee. ?Cracked lips. ?Dry mouth. ?Sunken eyes. ?Sleepiness. ?Weakness. These symptoms may be an emergency. Do not wait to see if the symptoms will go away. Get medical help right away. Call your local emergency services (911 in the [place] Do not drive yourself to the hospital. Summary Nausea is feeling sick to your stomach or feeling that you are about to throw up (vomit). Vomiting is when food in your stomach is thrown up and out of the mouth. Follow instructions from your doctor about eating and drinking to keep from losing too much water in your body. Take ftnn-wer-ookehec and prescription medicines only as told by your doctor. Contact your doctor if your symptoms get worse or you have new symptoms. Keep all follow-up visits as told by your doctor. This is important. This information is not intended to replace advice given to you by your health care provider. Make sure you discuss any questions you have with your health care provider. Document Released: 12/21/2008 Document Revised: 10/27/2019 Document Reviewed: 12/13/2018 [employer] Patient Education 2020 [employer] 12/27/2023 11:36:16 Moderate Conscious Sedation, Adult, Care After Moderate Conscious Sedation, Adult, Care After These instructions provide you with information about caring for yourself after your procedure. Your health care provider may also give you more specific instructions. Your treatment has been plannedaccording to current medical practices, but problems sometimes occur. Call your health care provider if you have any problems or questions after your procedure. What can I expect after the procedure? After your procedure, it is common: To feel sleepy for several hours. To feel clumsy and have poor balance for several hours. To have poor judgment for several hours. To vomit if you eat too soon. Follow these instructions at home: For at least 24 hours after the procedure: Do not: ?Participate in activities where you could fall or become injured. ?Drive. ?Use heavy machinery. ?Drink alcohol. ?Take sleeping pills or medicines that cause drowsiness. ?Make important decisions or sign legal documents. ?Take care of children on your own. Rest. Eating and drinking Follow the diet recommended by your health care provider. If you vomit: ?Drink water, juice, or soup when you can drink without vomiting. ?Make sure you have little or no nausea before eating solid foods. General instructions Have a responsible adult stay with you until you are awake and alert. Take tqma-sjf-gxywvhl and prescription medicines only as told by your health care provider. If you smoke, do not smoke without supervision. Keep all follow-up visits as told by your health care provider. This is important. Contact a health care provider if: You keep feeling nauseous or you keep vomiting. You feel light-headed. You develop a rash. You have a fever. Get help right away if: You have trouble breathing. This information is not intended to replace advice given to you by your health care provider. Make sure you discuss any questions you have with your health care provider. Document Released: 04/25/2014 Document Revised: 06/17/2018 Document Reviewed: 10/24/2016 [employer] Patient Education 2020 [employer] 12/27/2023 11:35:59 Soft-Food Eating Plan Soft-Food Eating Plan A soft-food eating plan includes foods that are safe and easy to chew and swallow. Your health careprovider or dietitian can help you find foods and flavors that fit into this plan. Follow this planuntil your health care provider or dietitian says it is safe to start eating other foods and food textures. What are tips for following this plan? General guidelines Take small bites of food, or cut food into pieces about inch or smaller. Bite- sized pieces of food are easier to chew and swallow. Eat moist foods. Avoid overly dry foods. Avoid foods that: ?Are difficult to swallow, such as dry, chunky, crispy, or sticky foods. ?Are difficult to chew, such as hard, tough, or stringy foods. ?Contain nuts, seeds, or fruits. Follow instructions from your dietitian about the types of liquids that are safe for you to swallow. You may be allowed to have: ?Thick liquids only. This includes only liquids that are thicker than honey. ?Thin and thick liquids. This includes all beverages and foods that become liquid at room temperature. To make thick liquids: ?Purchase a commercial liquid thickening powder. These are available at grocery stores and pharmacies. ?Mix the thickener into liquids according to instructions on the label. ?Purchase ready-made thickened liquids. ?Thicken soup by pureeing, straining to remove chunks, and adding flour, potato flakes, or corn starch. ?Add commercial thickener to foods that become liquid at room temperature, such as milk shakes, yogurt, ice cream, gelatin, and sherbet. Ask your health care provider whether you need to take a fiber supplement. Cooking Cook meats so they stay tender and moist. Use methods like braising, stewing, or baking in liquid. Cook vegetables and fruit until they are soft enough to be mashed with a fork. Peel soft, fresh fruits such as peaches, nectarines, and melons. When making soup, make sure chunks of meat and vegetables are smaller than inch. Reheat leftover foods slowly so that a tough crust does not form. What foods are allowed? The items listed below may not be a complete list. Talk with your dietitian about what dietary choices are best for you. Grains Breads, muffins, pancakes, or waffles moistened with syrup, jelly, or butter. Dry cereals well-moistened with milk. Moist, cooked cereals. Well-cooked pasta and rice. Vegetables All soft-cooked vegetables. Shredded lettuce. Fruits All canned and cooked fruits. Soft, peeled fresh fruits. Strawberries. Dairy Milk. Cream. Yogurt. Cottage cheese. Soft cheese without the rind. Meats and other protein foods Tender, moist ground meat, poultry, or fish. Meat cooked in gravy or sauces. Eggs. Sweets and desserts Ice cream. Milk shakes. Sherbet. Pudding. Fats and oils Butter. Margarine. [place], canola, sunflower, and grapeseed oil. Smooth salad dressing. Smooth creamcheese. Mayonnaise. Gravy. What foods are not allowed? The items listed bemay not be a complete list. Talk with your dietitian about what dietary choices are best for you. Grains Coarse or dry cereals, such as bran, granola, and shredded wheat. Tough or chewy crusty breads, such as [place] bread or baguettes. Breads with nuts, seeds, or fruit. Vegetables All raw vegetables. Cooked corn. Cooked vegetables that are tough or stringy. Tough, crisp, fried potatoes and potato skins. Fruits Fresh fruits with skins or seeds, or both, such as apples, pears, and grapes. Stringy, high-pulp fruits, such as papaya, pineapple, coconut, and beth. Fruit leather and all dried fruit. Dairy Yogurt with nuts or coconut. Meats and other protein foods Hard, dry sausages. Dry meat, poultry, or fish. Meats with gristle. Fish with bones. Fried meat or fish. Lunch meat and hotdogs. Nuts and seeds. [place] peanut butter or other nut butters. Sweets and desserts Cakes or cookies that are very dry or chewy. Desserts with dried fruit, nuts, or coconut. Fried pastries. Very rich pastries. Fats and oils Cream cheese with fruit or nuts. Salad dressings with seeds or chunks. Summary A soft-food eating plan includes foods that are safe and easy to swallow. Generally, the foods should be soft enough to be mashed with a fork. Avoid foods that are dry, hard to chew, crunchy, sticky, stringy, or crispy. Ask your health care provider whether you need to thicken your liquids and if you need to take a fiber supplement. This information is not intended to replace advice given to you by your health care provider. Make sure you discuss any questions you have with your health care provider. Document Released: 10/11/2008 Document Revised: 10/26/2019 Document Reviewed: 09/07/2017 [employer] Patient Education 2020 [employer]. 12/27/2023 11:28:05 Esophageal Stricture Esophageal Stricture Esophageal stricture is a narrowing (stricture) of the esophagus. The esophagus is the part of the body that moves food and liquid from your mouth to your stomach. The esophagus can become narrow because of disease or damage to the area. This condition can make swallowing difficult, painful, or even impossible. It also makes choking more likely. What are the causes? The most common cause of this condition is gastroesophageal reflux disease (GERD). Normally, food travels down the esophagus and stays in the stomach to be digested. In GERD, food and stomach acid move back up into the esophagus. Over time, this causes scar tissue and leads to narrowing. Other causes of esophageal stricture include: Scarring from swallowing (ingesting) a harmful substance. Damage from medical instruments used in the esophagus. Radiation therapy. Cancer. Inflammation of the esophagus. What increases the risk? You are more likely to develop an esophageal stricture if you have GERD or esophageal cancer. What are the signs or symptoms? Symptoms of this condition include: Difficulty swallowing. Pain when swallowing. Burning pain or discomfort in the throat or chest (heartburn). Vomiting or spitting up (regurgitating) food or liquids. Unexplained weight loss. How is this diagnosed? This condition may be diagnosed based on: Your symptoms and a physical exam. Tests, such as: ?Upper endoscopy. Your health care provider will insert a flexible tube with a tiny camera on it (endoscope) into your esophagus to check for a stricture. A tissue sample (biopsy) may also be taken to be examined under a microscope. ?Esophageal pH monitoring. This test involves using a tube to collect acid in the esophagus to determine how much stomach acid is entering the esophagus. ?Barium swallow test. For this test, you will drink a chalky liquid (barium solution) that coats the lining of the esophagus. Then you will have an X-ray taken. The barium solution helps to show if there is a stricture. How is this treated? Treatment for esophageal stricture depends on what is causing your condition and how severe your condition is. Treatment options include: Esophageal dilation. In this procedure, a health care provider inserts an endoscope or a tool called a dilator into the esophagus to gently stretch it and make the opening wider. Stents. In some cases, a health care provider may place a small device (stent) in the esophagus to keep it open. Acid-blocking medicines. Taking these can help you manage GERD symptoms after an esophageal stricture. Controlling your GERD symptoms or being free of them can prevent the stricture from returning. Follow these instructions at home: Eating and drinking Follow instructions from your health care provider about any diet changes. Cut your food into small pieces, chew well, and eat slowly Try to eat soft food that is easier to swallow. Eat and drink only when you are sitting upright. Do not drink alcohol. If you need help quitting, ask your health care provider. Do not eat during the 3 hours before bedtime. Do not overeat at meals. Do not eat foods that can make reflux worse. These include: ?Fatty foods, such as red meat and processed foods. ?Spicy foods. ?Soda. ?Tomato products. ?Chocolate. General instructions Take edny-xee-nysqouh and prescription medicines only as told by your health care provider. Do not use any products that contain nicotine or tobacco, such as cigarettes and e-cigarettes. If you need help quitting, ask your health care provider. Lose weight if you are overweight. Wear loose, comfortable clothing. When lying in bed, raise (elevate) your head with pillows. This will help to prevent your stomach contents from backing up into your esophagus while you sleep. Keep all follow-up visits as told by your health care provider. This is important. Contact a health care provider if: You have problems eating or swallowing. You regurgitate food and liquid. Your symptoms do not improve with treatment. Get help right away if: You can no longer keep down any food, drinks, or your saliva. Summary Esophageal stricture is a narrowing of the part of the body that moves food and liquid from your mouth to your stomach (esophagus). The esophagus can become narrow because of disease or damage to the area. This can make swallowing difficult, painful, or even impossible. Treatment for esophageal stricture depends on what is causing your condition and how severe your condition is. In some cases, procedures may be done to make the opening of the esophagus wider or to place a stent in the esophagus to keep it open. Do not drink alcohol, overeat at meals, or eat foods that can make reflux worse. This information is not intended to replace advice given to you by your health care provider. Make sure you discuss any questions you have with your health care provider. Document Released: 03/15/2007 Document Revised: 09/30/2018 Document Reviewed: 03/11/2018 [employer] Patient Education 2020 [employer]. 12/27/2023 11:19:56 Esophageal Cancer Esophageal Cancer Esophageal cancer is an abnormal growth of cancerous (malignant) cells in the part of the body thatmoves food from the mouth to the stomach (esophagus). What are the causes? The exact cause of esophageal cancer is not known. What increases the risk? Risk factors for esophageal cancer include: Being older than 65 years of age. Being male. Using any tobacco products, including cigarettes, chewing tobacco, and e-cigarettes. Excessive alcohol use. Eating a diet that is low in fruits and vegetables. Being overweight or obese. Having a damaged esophagus due to exposure to poisons (toxins). Having a history of other types of cancer. Having conditions that cause damage or irritation to the esophagus. These conditions include: ?Acid reflux. ?Bales's esophagus. ?Achalasia. ?Tylosis. ?Werner Quinn syndrome. ?HPV (human papillomavirus). What are the signs or symptoms? Symptoms may include: Trouble swallowing. Chest or back pain. Weight loss without trying (unintentional weight loss). Fatigue. Hoarse voice. Coughing. This may include coughing up blood. Vomiting. This may include vomiting up blood. Hiccups. Stools (feces) that look black or tarry due to bleeding into the esophagus. Bone pain. How is this diagnosed? This condition may be diagnosed based on: Your symptoms and medical history. A physical exam of the throat. A tube with a light and camera on the end of it (endoscope, bronchoscope, or laryngoscope) may be used to examine your throat and esophagus and to check if the cancer has spread to other areas, such as the lungs. Tissue samples may be removed (biopsy) and examined forcancer cells. A procedure in which you swallow a solution (barium) and then X-rays are done to evaluate the esophagus (barium swallow). The barium shows up well on X-rays, making it easier for your health care provider to see possible problems. Imaging tests, such as: ?X-rays. ?CT scan. ?MRI. ?PET scan. Your cancer will be assessed (staged) to determine how severe it is and how much it has spread. How is this treated? Treatment for esophageal cancer depends on the type and stage of the cancer. Treatment may include one or more of the following: Surgery to remove small tumors within the esophagus. Surgery to remove part of the esophagus (esophagectomy). Surgery to remove part of the esophagus and the upper portion of the stomach (esophagogastrectomy). Medicines that kill cancer cells (chemotherapy). High-energy rays that kill cancer cells (radiation therapy). Targeted therapy. This targets specific parts of cancer cells and the area around them to block thegrowth and spread of the cancer. Targeted therapy can help limit damage to healthy cells. Medicines that help your body's disease-fighting system (immune system) fight the cancer cells (immunotherapy). A procedure to remove part of the inner lining of the esophagus (endoscopic mucosal resection). A procedure in which you are given IV medicine and then an endoscope is used to shine a special type of light onto the esophagus (photodynamic therapy). The light changes the medicine into a chemicalthat destroys cancer cells. A procedure in which a small balloon is inflated in the esophagus (radiofrequency ablation). The balloon uses an electric current to heat and destroy the cells in the lining of the esophagus. Follow these instructions at home: Lifestyle Do not use any products that contain nicotine or tobacco, such as cigarettes and e-cigarettes. If you need help quitting, ask your health care provider. Do not drink alcohol. General instructions Try to eat regular, healthy meals. Some of your treatments might affect your appetite and your ability to swallow. If you are having problems eating or if you do not have an appetite, meet with a dietitian. Take ombd-xvl-nlxoijt and prescription medicines only as told by your health care provider. Consider joining a support group for people who have been diagnosed with esophageal cancer. Work with your cancer care team to manage any side effects of treatment. Keep all follow-up visits as told by your health care provider. This is important. Where to find more information [place] [employer]: www.cancer.org National Cancer [place] (NCI): www.cancer.gov Contact a health care provider if: You have more problems swallowing or eating. You have new fatigue or weakness. You continue to lose weight unintentionally. You have a fever. Get help right away if: You have pain that suddenly gets worse. You have trouble breathing. You vomit blood or black material that looks like coffee grounds. You have black stools. You faint. Summary Esophageal cancer is an abnormal growth of cancerous (malignant) cells in the part of the body thatmoves food from the mouth to the stomach (esophagus). During diagnosis, a tube with a light and camera on the end of it (endoscope, bronchoscope, or laryngoscope) may be used to examine your throat and esophagus. Do not use any products that contain nicotine or tobacco, such as cigarettes and e-cigarettes. If you need help quitting, ask your health care provider. Work with your cancer care team to manage any side effects of treatment. This information is not intended to replace advice given to you by your health care provider. Make sure you discuss any questions you have with your health care provider. Document Released: 06/17/2009 Document Revised: 01/05/2019 Document Reviewed: 04/06/2018 [employer] Patient Education 2020 [employer]. 12/27/2023 11:19:50 9 - AO Minor Esophagogastroduodenoscopy (09/29)(CUSTOM) Esophagogastroduodenoscopy This is an endoscopic procedure (a procedure that uses a device like a flexible telescope) that allows your caregiver to view the upper stomach and small bowel. This test allows your caregiver to look at the esophagus. The esophagus carries food from your mouth to your stomach. They can also look at your duodenum. This is the first part of the small intestine that attaches to the stomach. This test is used to detect problems in the bowel such as ulcers and inflammation. MEANING OF TEST Your caregiver will go over the test results with you and discuss the importance and meaning of your results, as well as treatment options and the need for additional tests if necessary. OBTAINING THE TEST RESULTS Your caregiver s office will call you with the results of the test. POST SEDATION INSTRUCTIONS Rest at home today. Since your coordination may be impaired, be cautious on stairways, do not drive any vehicle or operate any heavy machinery, or use any sharp instruments for the remainder of the day. Do not drink any alcoholic beverages or make any major decisions for 24 hours. POST PROCEDURE INSTRUCTIONS Progress slowly with full liquids then resume previous diet and medications. Belching or passing of gas is to be expected. Notify the physician if you have severe chest pain, fever, or if difficulty when swallowing persists. 09/26/13 Custom Follow Up Care 12/15/2023 07:57:24 With:YADIEL ROBERSON MD Address: [address] [facility] [address] [place] [address]- [phone] When:3-5 days With:VICKY NATH DO Address: [address] [place] [address] [phone] When:1-2 days [facility] 06-10-2024 Note Discharge Instructions Thank you for allowing [facility] to assist you with your healthcare needs. The following is importantdischarge information regarding your hospital visit. Your Care Team AMANDA DAVIS DO, Dr. What to do next Instructions From Your Doctor Soft Diet, No meat unless blended Follow Up Appointments Follow Up with YADIEL ROBERSON MD When:Within 3-5 days Where:[address] [facility] [address] [place] [address] [phone] Follow Up with VICKY NATH DO When:Within 1-2 days Where:[address] [place] [address] [phone] Allergies Contrast dye Medications Please ask your primary doctor or pharmacist before taking any other medication not listed, including over the counter drugs, herbal medications, vitamins and or supplements as they may interact withyour home medications. What How Much When Instructions Last Dose Unchanged amLODIPine (amLODIPine 10 mg oral tablet) 1 tab(s) by mouth Once a day Unchanged aspirin (aspirin 81 mg oral delayed release tablet) 1 tab(s) by mouth Every day Unchanged atorvastatin (atorvastatin 20 mg oral tablet) 1 tab(s) by mouth Every day Unchanged cholecalciferol (Vitamin D3) 10 Microgram by mouth Every day Unchanged hydroCHLOROthiazide (hydroCHLOROthiazide 25 mg oral tablet) 1 tab(s) by mouth Every day Unchanged metoprolol (Lopressor 25mg--USE metoprolol tartrate 25 mg oral tablet) 1 tab(s) Please take this list to your next doctor s visit. Bring all medications you take, including over the counter medications, herbals and other supplements with you to your doctor s visit. Patients and families are reminded to discard old lists and to update any records with all medication providers or retail pharmacies. Education Materials Nausea and Vomiting, Adult Nausea is feeling sick to your stomach or feeling that you are about to throw up (vomit). Vomiting is when food in your stomach is thrown up and out of the mouth. Throwing up can make you feel weak. It can also make you lose too much water in your body (get dehydrated). If you lose too much water in your body, you may: Feel tired. Feel thirsty. Have a dry mouth. Have cracked lips. Go pee (urinate) less often. Older adults and people with other diseases or a weak body defense system (immune system) are at higher risk for losing too much water in the body. If you feel sick to your stomach and you throw up, it is important to follow instructions from your doctor about how to take care of yourself. Follow these instructions at home: Watch your symptoms for any changes. Tell your doctor about them. Follow these instructions to carefor yourself at home. Eating and drinking Take an ORS (oral rehydration solution). This is a drink that is sold at pharmacies and stores. Drink clear fluids in small amounts as you are able, such as: ? Water. ? Ice chips. ? Fruit juice that has water added (diluted fruit juice). ? Low-calorie sports drinks. Eat bland, hdfu-zd-ymbpjg foods in small amounts as you are able, such as: ? Bananas. ? Applesauce. ? Rice. ? Low-fat (lean) meats. ? [place]. ? Crackers. Avoid drinking fluids that have a lot of sugar or caffeine in them. This includes energy drinks, sports drinks, and soda. Avoid alcohol. Avoid spicy or fatty foods. General instructions Take mplo-eho-jtnprks and prescription medicines only as told by your doctor. Drink enough fluid to keep your pee (urine) pale yellow. Wash your hands often with soap and water. If you cannot use soap and water, use hand sign language interpreter. Make sure that all people in your home wash their hands well and often. Rest at home while you get better. Watch your condition for any changes. Take slow and deep breaths when you feel sick to your stomach. Keep all follow-up visits as told by your doctor. This is important. Contact a doctor if: Your symptoms get worse. You have new symptoms. You have a fever. You cannot drink fluids without throwing up. You feel sick to your stomach for more than 2 days. You feel light-headed or dizzy. You have a headache. You have muscle cramps. You have a rash. You have pain while peeing. Get help right away if: You have pain in your chest, neck, arm, or jaw. You feel very weak or you pass out (faint). You throw up again and again. You have throw up that is bright red or looks like black coffee grounds. You have bloody or black poop (stools) or poop that looks like tar. You have a very bad headache, a stiff neck, or both. You have very bad pain, cramping, or bloating in your belly (abdomen). You have trouble breathing. You are breathing very quickly. Your heart is beating very quickly. Your skin feels cold and clammy. You feel confused. You have signs of losing too much water in your body, such as: ? Dark pee, very little pee, or no pee. ? Cracked lips. ? Dry mouth. ? Sunken eyes. ? Sleepiness. ? Weakness. These symptoms may be an emergency. Do not wait to see if the symptoms will go away. Get medical help right away. Call your local emergency services (911 in the [place] Do not drive yourself to the hospital. Summary Nausea is feeling sick to your stomach or feeling that you are about to throw up (vomit). Vomiting is when food in your stomach is thrown up and out of the mouth. Follow instructions from your doctor about eating and drinking to keep from losing too much water in your body. Take uyfs-aac-eajwtnr and prescription medicines only as told by your doctor. Contact your doctor if your symptoms get worse or you have new symptoms. Keep all follow-up visits as told by your doctor. This is important. This information is not intended to replace advice given to you by your health care provider. Make sure you discuss any questions you have with your health care provider. Document Released: 12/21/2008 Document Revised: 10/27/2019 Document Reviewed: 12/13/2018 [employer] Patient Education [employer]. Moderate Conscious Sedation, Adult, Care After These instructions provide you with information about caring for yourself after your procedure. Your health care provider may also give you more specific instructions. Your treatment has been plannedaccording to current medical practices, but problems sometimes occur. Call your health care provider if you have any problems or questions after your procedure. What can I expect after the procedure? After your procedure, it is common: To feel sleepy for several hours. To feel clumsy and have poor balance for several hours. To have poor judgment for several hours. To vomit if you eat too soon. Follow these instructions at home: For at least 24 hours after the procedure: Do not: ? Participate in activities where you could fall or become injured. ? Drive. ? Use heavy machinery. ? Drink alcohol. ? Take sleeping pills or medicines that cause drowsiness. ? Make important decisions or sign legal documents. ? Take care of children on your own. Rest. Eating and drinking Follow the diet recommended by your health care provider. If you vomit: ? Drink water, juice, or soup when you can drink without vomiting. ? Make sure you have little or no nausea before eating solid foods. General instructions Have a responsible adult stay with you until you are awake and alert. Take nudv-xfu-mohknoh and prescription medicines only as told by your health care provider. If you smoke, do not smoke without supervision. Keep all follow-up visits as told by your health care provider. This is important. Contact a health care provider if: You keep feeling nauseous or you keep vomiting. You feel light-headed. You develop a rash. You have a fever. Get help right away if: You have trouble breathing. This information is not intended to replace advice given to you by your health care provider. Make sure you discuss any questions you have with your health care provider. Document Released: 04/25/2014 Document Revised: 06/17/2018 Document Reviewed: 10/24/2016 [employer] Patient Education [employer]. Soft-Food Eating Plan A soft-food eating plan includes foods that are safe and easy to chew and swallow. Your health careprovider or dietitian can help you find foods and flavors that fit into this plan. Follow this planuntil your health care provider or dietitian says it is safe to start eating other foods and food textures. What are tips for following this plan? General guidelines Take small bites of food, or cut food into pieces about inch or smaller. Bite- sized pieces of food are easier to chew and swallow. Eat moist foods. Avoid overly dry foods. Avoid foods that: ? Are difficult to swallow, such as dry, chunky, crispy, or sticky foods. ? Are difficult to chew, such as hard, tough, or stringy foods. ? Contain nuts, seeds, or fruits. Follow instructions from your dietitian about the types of liquids that are safe for you to swallow. You may be allowed to have: ? Thick liquids only. This includes only liquids that are thicker than honey. ? Thin and thick liquids. This includes all beverages and foods that become liquid at room temperature. To make thick liquids: ? Purchase a commercial liquid thickening powder. These are available at grocery stores and pharmacies. ? Mix the thickener into liquids according to instructions on the label. ? Purchase ready-made thickened liquids. ? Thicken soup by pureeing, straining to remove chunks, and adding flour, potato flakes, or corn starch. ? Add commercial thickener to foods that become liquid at room temperature, such as milk shakes, yogurt, ice cream, gelatin, and sherbet. Ask your health care provider whether you need to take a fiber supplement. Cooking Cook meats so they stay tender and moist. Use methods like braising, stewing, or baking in liquid. Cook vegetables and fruit until they are soft enough to be mashed with a fork. Peel soft, fresh fruits such as peaches, nectarines, and melons. When making soup, make sure chunks of meat and vegetables are smaller than inch. Reheat leftover foods slowly so that a tough crust does not form. What foods are allowed? The items listed below may not be a complete list. Talk with your dietitian about what dietary choices are best for you. Grains Breads, muffins, pancakes, or waffles moistened with syrup, jelly, or butter. Dry cereals well-moistened with milk. Moist, cooked cereals. Well-cooked pasta and rice. Vegetables All soft-cooked vegetables. Shredded lettuce. Fruits All canned and cooked fruits. Soft, peeled fresh fruits. Strawberries. Dairy Milk. Cream. Yogurt. Cottage cheese. Soft cheese without the rind. Meats and other protein foods Tender, moist ground meat, poultry, or fish. Meat cooked in gravy or sauces. Eggs. Sweets and desserts Ice cream. Milk shakes. Sherbet. Pudding. Fats and oils Butter. Margarine. [place], canola, sunflower, and grapeseed oil. Smooth salad dressing. Smooth creamcheese. Mayonnaise. Gravy. What foods are not allowed? The items listed bemay not be a complete list. Talk with your dietitian about what dietary choices are best for you. Grains Coarse or dry cereals, such as bran, granola, and shredded wheat. Tough or chewy crusty breads, such as [place] bread or baguettes. Breads with nuts, seeds, or fruit. Vegetables All raw vegetables. Cooked corn. Cooked vegetables that are tough or stringy. Tough, crisp, fried potatoes and potato skins. Fruits Fresh fruits with skins or seeds, or both, such as apples, pears, and grapes. Stringy, high-pulp fruits, such as papaya, pineapple, coconut, and beth. Fruit leather and all dried fruit. Dairy Yogurt with nuts or coconut. Meats and other protein foods Hard, dry sausages. Dry meat, poultry, or fish. Meats with gristle. Fish with bones. Fried meat or fish. Lunch meat and hotdogs. Nuts and seeds. [place] peanut butter or other nut butters. Sweets and desserts Cakes or cookies that are very dry or chewy. Desserts with dried fruit, nuts, or coconut. Fried pastries. Very rich pastries. Fats and oils Cream cheese with fruit or nuts. Salad dressings with seeds or chunks. Summary A soft-food eating plan includes foods that are safe and easy to swallow. Generally, the foods should be soft enough to be mashed with a fork. Avoid foods that are dry, hard to chew, crunchy, sticky, stringy, or crispy. Ask your health care provider whether you need to thicken your liquids and if you need to take a fiber supplement. This information is not intended to replace advice given to you by your health care provider. Make sure you discuss any questions you have with your health care provider. Document Released: 10/11/2008 Document Revised: 10/26/2019 Document Reviewed: 09/07/2017 [employer] Patient Education 2020 [employer]. Esophageal Stricture Esophageal stricture is a narrowing (stricture) of the esophagus. The esophagus is the part of the body that moves food and liquid from your mouth to your stomach. The esophagus can become narrow because of disease or damage to the area. This condition can make swallowing difficult, painful, or even impossible. It also makes choking more likely. What are the causes? The most common cause of this condition is gastroesophageal reflux disease (GERD). Normally, food travels down the esophagus and stays in the stomach to be digested. In GERD, food and stomach acid move back up into the esophagus. Over time, this causes scar tissue and leads to narrowing. Other causes of esophageal stricture include: Scarring from swallowing (ingesting) a harmful substance. Damage from medical instruments used in the esophagus. Radiation therapy. Cancer. Inflammation of the esophagus. What increases the risk? You are more likely to develop an esophageal stricture if you have GERD or esophageal cancer. What are the signs or symptoms? Symptoms of this condition include: Difficulty swallowing. Pain when swallowing. Burning pain or discomfort in the throat or chest (heartburn). Vomiting or spitting up (regurgitating) food or liquids. Unexplained weight loss. How is this diagnosed? This condition may be diagnosed based on: Your symptoms and a physical exam. Tests, such as: ? Upper endoscopy. Your health care provider will insert a flexible tube with a tiny camera on it (endoscope) into your esophagus to check for a stricture. A tissue sample (biopsy) may also be taken nas examined under a microscope. ? Esophageal pH monitoring. This test involves using a tube to collect acid in the esophagus to determine how much stomach acid is entering the esophagus. ? Barium swallow test. For this test, you will drink a chalky liquid (barium solution) that coats thelining of the esophagus. Then you will have an X-ray taken. The barium solution helps to show if there is a stricture. How is this treated? Treatment for esophageal stricture depends on what is causing your condition and how severe your condition is. Treatment options include: Esophageal dilation. In this procedure, a health care provider inserts an endoscope or a tool called a dilator into the esophagus to gently stretch it and make the opening wider. Stents. In some cases, a health care provider may place a small device (stent) in the esophagus to keep it open. Acid-blocking medicines. Taking these can help you manage GERD symptoms after an esophageal stricture. Controlling your GERD symptoms or being free of them can prevent the stricture from returning. Follow these instructions at home: Eating and drinking Follow instructions from your health care provider about any diet changes. Cut your food into small pieces, chew well, and eat slowly Try to eat soft food that is easier to swallow. Eat and drink only when you are sitting upright. Do not drink alcohol. If you need help quitting, ask your health care provider. Do not eat during the 3 hours before bedtime. Do not overeat at meals. Do not eat foods that can make reflux worse. These include: ? Fatty foods, such as red meat and processed foods. ? Spicy foods. ? Soda. ? Tomato products. ? Chocolate. General instructions Take kjzz-bvx-bixpgkq and prescription medicines only as told by your health care provider. Do not use any products that contain nicotine or tobacco, such as cigarettes and e-cigarettes. If you need help quitting, ask your health care provider. Lose weight if you are overweight. Wear loose, comfortable clothing. When lying in bed, raise (elevate) your head with pillows. This will help to prevent your stomach contents from backing up into your esophagus while you sleep. Keep all follow-up visits as told by your health care provider. This is important. Contact a health care provider if: You have problems eating or swallowing. You regurgitate food and liquid. Your symptoms do not improve with treatment. Get help right away if: You can no longer keep down any food, drinks, or your saliva. Summary Esophageal stricture is a narrowing of the part of the body that moves food and liquid from your mouth to your stomach (esophagus). The esophagus can become narrow because of disease or damage to the area. This can make swallowing difficult, painful, or even impossible. Treatment for esophageal stricture depends on what is causing your condition and how severe your condition is. In some cases, procedures may be done to make the opening of the esophagus wider or to place a stent in the esophagus to keep it open. Do not drink alcohol, overeat at meals, or eat foods that can make reflux worse. This information is not intended to replace advice given to you by your health care provider. Make sure you discuss any questions you have with your health care provider. Document Released: 03/15/2007 Document Revised: 09/30/2018 Document Reviewed: 03/11/2018 [employer] Patient Education 2020 [employer]. Esophageal Cancer Esophageal cancer is an abnormal growth of cancerous (malignant) cells in the part of the body thatmoves food from the mouth to the stomach (esophagus). What are the causes? The exact cause of esophageal cancer is not known. What increases the risk? Risk factors for esophageal cancer include: Being older than 65 years of age. Being male. Using any tobacco products, including cigarettes, chewing tobacco, and e-cigarettes. Excessive alcohol use. Eating a diet that is low in fruits and vegetables. Being overweight or obese. Having a damaged esophagus due to exposure to poisons (toxins). Having a history of other types of cancer. Having conditions that cause damage or irritation to the esophagus. These conditions include: ? Acid reflux. ? Bales's esophagus. ? Achalasia. ? Tylosis. ? [place] Quinn syndrome. ? HPV (human papillomavirus). What are the signs or symptoms? Symptoms may include: Trouble swallowing. Chest or back pain. Weight loss without trying (unintentional weight loss). Fatigue. Hoarse voice. Coughing. This may include coughing up blood. Vomiting. This may include vomiting up blood. Hiccups. Stools (feces) that look black or tarry due to bleeding into the esophagus. Bone pain. How is this diagnosed? This condition may be diagnosed based on: Your symptoms and medical history. A physical exam of the throat. A tube with a light and camera on the end of it (endoscope, bronchoscope, or laryngoscope) may be used to examine your throat and esophagus and to check if the cancer has spread to other areas, such as the lungs. Tissue samples may be removed (biopsy) and examined forcancer cells. A procedure in which you swallow a solution (barium) and then X-rays are done to evaluate the esophagus (barium swallow). The barium shows up well on X-rays, making it easier for your health care provider to see possible problems. Imaging tests, such as: ? X-rays. ? CT scan. ? MRI. ? PET scan. Your cancer will be assessed (staged) to determine how severe it is and how much it has spread. How is this treated? Treatment for esophageal cancer depends on the type and stage of the cancer. Treatment may include one or more of the following: Surgery to remove small tumors within the esophagus. Surgery to remove part of the esophagus (esophagectomy). Surgery to remove part of the esophagus and the upper portion of the stomach (esophagogastrectomy). Medicines that kill cancer cells (chemotherapy). High-energy rays that kill cancer cells (radiation therapy). Targeted therapy. This targets specific parts of cancer cells and the area around them to block thegrowth and spread of the cancer. Targeted therapy can help limit damage to healthy cells. Medicines that help your body's disease-fighting system (immune system) fight the cancer cells (immunotherapy). A procedure to remove part of the inner lining of the esophagus (endoscopic mucosal resection). A procedure in which you are given IV medicine and then an endoscope is used to shine a special type of light onto the esophagus (photodynamic therapy). The light changes the medicine into a chemicalthat destroys cancer cells. A procedure in which a small balloon is inflated in the esophagus (radiofrequency ablation). The balloon uses an electric current to heat and destroy the cells in the lining of the esophagus. Follow these instructions at home: Lifestyle Do not use any products that contain nicotine or tobacco, such as cigarettes and e-cigarettes. If you need help quitting, ask your health care provider. Do not drink alcohol. General instructions Try to eat regular, healthy meals. Some of your treatments might affect your appetite and your ability to swallow. If you are having problems eating or if you do not have an appetite, meet with a dietitian. Take mmaw-bbs-thuhsnz and prescription medicines only as told by your health care provider. Consider joining a support group for people who have been diagnosed with esophageal cancer. Work with your cancer care team to manage any side effects of treatment. Keep all follow-up visits as told by your health care provider. This is important. Where to find more information [employer]: www.cancer.org National Cancer [place] (NCI): www.cancer.gov Contact a health care provider if: You have more problems swallowing or eating. You have new fatigue or weakness. You continue to lose weight unintentionally. You have a fever. Get help right away if: You have pain that suddenly gets worse. You have trouble breathing. You vomit blood or black material that looks like coffee grounds. You have black stools. You faint. Summary Esophageal cancer is an abnormal growth of cancerous (malignant) cells in the part of the body thatmoves food from the mouth to the stomach (esophagus). During diagnosis, a tube with a light and camera on the end of it (endoscope, bronchoscope, or laryngoscope) may be used to examine your throat and esophagus. Do not use any products that contain nicotine or tobacco, such as cigarettes and e-cigarettes. If you need help quitting, ask your health care provider. Work with your cancer care team to manage any side effects of treatment. This information is not intended to replace advice given to you by your health care provider. Make sure you discuss any questions you have with your health care provider. Document Released: 06/17/2009 Document Revised: 01/05/2019 Document Reviewed: 04/06/2018 [employer] Patient Education 2020 [employer]. Esophagogastroduodenoscopy This is an endoscopic procedure (a procedure that uses a device like a flexible telescope) that allows your caregiver to view the upper stomach and small bowel. This test allows your caregiver to look at the esophagus. The esophagus carries food from your mouth to your stomach. They can also look at your duodenum. This is the first part of the small intestine that attaches to the stomach. This test is used to detect problems in the bowel such as ulcers and inflammation. MEANING OF TEST Your caregiver will go over the test results with you and discuss the importance and meaning of your results, as well as treatment options and the need for additional tests if necessary. OBTAINING THE TEST RESULTS Your caregiver s office will call you with the results of the test. POST SEDATION INSTRUCTIONS Rest at home today. Since your coordination may be impaired, be cautious on stairways, do not drive any vehicle or operate any heavy machinery, or use any sharp instruments for the remainder of the day. Do not drink any alcoholic beverages or make any major decisions for 24 hours. POST PROCEDURE INSTRUCTIONS Progress slowly with full liquids then resume previous diet and medications. Belching or passing of gas is to be expected. Notify the physician if you have severe chest pain, fever, or if difficulty when swallowing persists. 09/26/13 Custom Additional Information VACCINATE! IT SAVES LIVES! Members of the community who have not yet received the COVID-19 vaccine and would like to receive it can visit one of [facility] vaccine clinics. There are many vaccine clinic locations within the [facility]. For locations and available times, please visit [email or web address].[email or web address] It is important to note that some COVID mobile vaccine clinics are held outdoors and may be canceled in rainy or stormy conditions. To learn more about pediatric vaccinations (ages 5-11), we invite you to visit the [facility] webpage. https://www.[email or web address].coms.org/[email or web address]-[email or web address]-[email or web address]-[email or web address] [email or web address] learn more about the COVID-19 vaccine, we invite you to visit the CDC website for a list of frequently asked questions.https://www.cdc.gov/coronavirus/2019-ncov/vaccines/faq.html [facility] Patient Portal Access Instructions: Stay connected with your healthcare team and access your personal medical information anytime with the [facility] Patient Portal. Please follow the directions below to create your [facility] account: 1.Access the email account you provided upon registration to the hospital/physician office.2.Look for an invitation email from [facility].3.Open the email and access the invitation link: AcceptInvitation to [facility].4.Fill in the required gomez to create your account. To access your account, visit [employer] [facility] [employer]/115 network disksOneChart. Click the blue button labeled Access Patient Portal and then log in with the username and password that you created in the steps above. You will be able to view your test results, lab results, a summary of your visits, upcoming appointments and more. There is also a convenient messaging option where you can send secure messages to your p Schoologyvider. In addition, you will have the ability to download any documents or summaries to your computer and/or send the information securely to a physician. Remember that your healthcare information is confidential, so carefully consider who you will allowto register on the [facility] Patient Portal for access to your information. You can also access the [facility] Patient Portal on the 115 network disks Anywhere melany. Simply click on Patient Portal and then log into your account. If you would like to receive a full copy of your medical records, please contact the [facility] Medical Records Department by calling [phone], Wednesday through Wednesday between 8 a.m. and 4:30 p.m. HOW TO SAFELY DISPOSE OF PRESCRIPTION MEDICATIONS Please use one of the following methods to safely dispose of your unused medications. 1.Use a drug disposal kit: the drug disposal pouch allows you to safely discard your old and unuseddrugs. Ask your nurse to give you one when you are discharged.2.Visit a local take-back location: Many local pharmacies and police departments have programs that collect old and unwanted prescriptiondrugs. Call your local pharmacy or go to http://Guaranteach/2U0Nb0t to find one close to you.3.Make use of household items: Use cat litter or old coffee grounds to dispose medications if other options arenot available. Mix your drugs with these household products, seal them in an airtight container andthrow it into the garbage. Call [facility]: [phone] to be sure your drugs can be disposed of in this way. Some medicines may require a different approach.4.Never flush your medications down the toilet. IF YOU HAVE BEEN PRESCRIBED AN OPIOID FOR PAIN If you have been prescribed an opioid (such as hydrocodone, oxycodone or morphine), it is critical to understand the possible side effects and risks of opioid pain medications. Even when taken as directed, opioids can have several side effects including: Tolerance, meaning you might need to take more of a medication for the same pain relief. Nausea, vomiting and/or constipation. Sleepiness, dizziness, dry mouth, confusion, depression or itching. Physical dependence, meaning you have withdrawal symptoms when a medication is stopped, can develop within a few days. KNOW YOUR RESPONSIBILITIES It is important to know exactly how much and how often to take the opioid pain medications you are prescribed. Never take opioids in higher amounts or more often than prescribed. Do not combine opioids with alcohol or other drugs that cause drowsiness, such as benzodiazepines, also known as benzos, including diazepam and alprazolam, muscle relaxants or sleep aids. Never sell or share prescription opioids. This is illegal. Store opioids in a secure place and out of reach of others (including children, family, friends and visitors). The last page of this document has been signed and retained as a CHART COPY. Signatures Patient Education Materials Nausea and Vomiting, Adult, [id number] Moderate Conscious Sedation, Adult, Care After Soft-Food Eating Plan Esophageal Stricture Esophageal Cancer 9 - AO Minor Esophagogastroduodenoscopy (09/29)(CUSTOM) Medication Leaflets My discharge plan and instructions have been reviewed and explained to me and I,FEI ROGERS understand my current condition and have read and understand these discharge instructions. I have received a written copy of the plan/instructions. If I have questions, I am aware that I should contact my doctor. 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 Scope was passed directlydown to the esophagus 24 cm was a stricture and a mass in the esophagus. The scope could not be passed by this area. A CRE balloon was selected and passed down the channel of the endoscope this was asize eight 9 10 mm. Guidewire was extended past the stricture with little resistance. The balloon was inflated to 3 laurel then increase by 1 laurel each time after being held in place for approximately 20seconds. At 8 laurel this was felt to be sufficient with a widened lumen. Scope was repassed through the stricture down to the GE junction where there was a large hiatal hernia extending for about 2 cm.Was easily insufflated open of the duodenum was normal reflexion was performed the stomach showed ahiatal hernia. This point the Z-line was measured this was 31 cm from the incisors. The tumor extended from 24 cm to 27 cm.. There appeared Bales's mucosa throughout the lower esophagus. Biopsies of the stricture and mass were taken for pathology. The endoscope was withdrawn and the patient tolerated the procedure well. 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 Findings Esophageal cancer Complications None apparent Total Time Approximately 25 minutes Assessment/Plan Orders: Lactated Ringers Infusion 1,000 mL(LR 1,000 mL), 1000 mL, Intravenous Communication Order (scheduled), 12/27/23 10:32:00 EDT, Once, 12/27/23 10:32:00 EDT, Pathology Tissue Request Communication Order (scheduled), 12/27/23 10:32:00 EDT, Once, 12/27/23 10:32:00 EDT, Urine Test or waiver for women of child bearing age Communication Order (scheduled), 12/27/23 10:32:00 EDT, Once, 12/27/23 10:32:00 EDT, Fasting Blood Sugar priot to procedure of patient is diabetic Discharge, 12/27/23 10:32:00 EDT, Discharged to: Home, when able to ambulate and after being seen by physician Sign Consent, 12/27/23 10:32:00 EDT, Once, For EGD Digitally Signed by YADIEL ROBERSON MD on 12/27/2023 11:21 AM [facility]06-10-2024 Anesthesiology Consult note Patient: FEI ROGERS Age: 88 years Sex: Male : 1935 Associated Diagnoses: None Author: JIAN RIVERA 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 Assessment Postanesthesia assessment Vitals: Vital signs from flowsheet : Vital Signs 12/27/2023 11:05 EDT Heart Rate Monitored 69 bpm bpm Respiratory Rate - Anes 23 br/min br/min Systolic Blood Pressure Non-Invasive 100 mmHg mmHg Diastolic Blood Pressure Non-Invasive 38 mmHg mmHg 12/27/2023 11:00 EDT Heart Rate Monitored 66 bpm bpm Respiratory Rate - Anes 15 br/min br/min Systolic Blood Pressure Non-Invasive 109 mmHg mmHg Diastolic Blood Pressure Non-Invasive 40 mmHg mmHg 12/27/2023 10:55 EDT Systolic Blood Pressure Non-Invasive 169 mmHg mmHg Diastolic Blood Pressure Non-Invasive 51 mmHg mmHg 12/27/2023 10:34 EDT Temperature Tympanic 36 DegC LOW Peripheral Pulse Rate 67 bpm Respiratory Rate 16 br/min Systolic Blood Pressure Non-Invasive 154 mmHg HI Diastolic Blood Pressure Non-Invasive 55 mmHg LOW . Mental status: alert & oriented x 4. Respiratory function: lungs are clear to auscultation. Respiratory support: none. CV function: Normal rate. Cardiovascular support: none. Pain. Nausea status: see nursing documentation of medications. Postoperative hydration status: within normal limits. Digitally Signed by JIAN RIVERA on 12/27/2023 11:13 AM [facility]06-10-2024 Note HODGES ADMISSION HISTORY AND PHYSICIAL CHIEF COMPLAINT: HISTORY OF PRESENT ILLNESS: REVIEW OF SYSTEMS: ACTIVE PROBLEMS: (1) GERD (gastroesophageal reflux disease) ([id number]) MEDICATIONS: Active Inpt Meds: None Active PRN Meds: None One Time Meds: None Active IV Meds: Lactated Ringers Infusion 1,000 mL (LR 1,000 mL) Start: 12/27/23 10:32:00 EDT, Rate: 50 mL/hr, 12/27/23 10:32:00 EDT ALLERGIES: (1) Contrast dye FAMILY HISTORY: SOCIAL HISTORY: PHYSICAL EXAM: VITALS: GgdhtjOtldWQWfqvrZVJfS8JEA2QfxjOd(kg) 12/26 10:3436--900297GZ12/10 56.8 24 Hr Tmax: 36 at 12/26 10:34 36 Hr Tmax: 36 at 12/26 10:34 Vital Signs are the last 5 in the past 48 hours. Weights display the last 5 within 7 days. Initial Wt: 12/26 56.8 kg 125 lb Current Wt: 12/26 56.8 kg 125 lb GENERAL: HEENT: CARDIOVASCULAR: RESPIRATORY: ABDOMEN: EXREMETIES: NEUROLOGICAL: PSYCHIATRIC: LABS: No 36hr Lab Data DIAGNOSTICS: IMPRESSION: PLAN: History and Physical Update I have examined the patient; reviewed the H&P and there are no changes to the H&P unless noted below. Digitally Signed by YADIEL ROBERSON MD on 12/27/2023 11:01 AM [facility]06-10-2024 Anesthesiology Consult note Patient: FEI ROGERS Age: 88 years Sex: Male : 1935 Associated Diagnoses: None Author: JIAN RIVERA APRN-HERNAN Preoperative Information Time of last food or liquid consumption: 12/26/2023 23:59:00 Anesthesia history Patient's history: negative. Family's history: negative. Review of Systems Ear/Nose/Mouth/Throat: Negative except as documented in history of present illness. Respiratory: Negative except as documented in history of present illness. Cardiovascular: Negative except as documented in history of present illness. Gastrointestinal: Negative except as documented in history of present illness. Genitourinary: Negative except as documented in history of present illness. Endocrine: Negative except as documented in history of present illness. Musculoskeletal: Negative except as documented in history of present illness. Integumentary: Negative except as documented in history of present illness. Neurologic: Negative except as documented in history of present illness. Health Status Allergies: Allergic Reactions (Selected) Severity Not Documented Contrast dye- No reactions were documented., Allergies (1) ActiveSeverityReaction Contrast dyeNone Documented Current medications: (Selected) Inpatient Medications Ordered LR 1,000 mL: 50 mL/hr, Intravenous Documented Medications Documented Lopressor 25mg--USE metoprolol tartrate 25 mg oral tablet: 25 mg, 1 tab(s), 0 Refill(s) Vitamin D3: 10 mcg, 1 tab(s), Oral, Daily, 0 Refill(s) amLODIPine 10 mg oral tablet: 10 mg, 1 tab(s), Oral, qDay, 90 tab(s), 0 Refill(s) aspirin 81 mg oral delayed release tablet: 81 mg, 1 tab(s), Oral, Daily, 0 Refill(s) atorvastatin 20 mg oral tablet: 20 mg, 1 tab(s), Oral, Daily, 100 tab(s), 0 Refill(s) hydroCHLOROthiazide 25 mg oral tablet: 25 mg, 1 tab(s), Oral, Daily, 0 Refill(s), Medications (1) Active Scheduled: (0) Continuous: (1) Lactated Ringers Infusion 1,000 mL 1,000 mL, Intravenous, 50 mL/hr PRN: (0) Problem list: No problem items selected or recorded., Active Problems (1) GERD (gastroesophageal reflux disease) Histories Past Medical History: No active or resolved past medical history items have been selected or recorded. Family History: No family history items have been selected or recorded. Procedure history: Hand surgery ([id number]). Comments: 12/23/2023 10:07 EDT - Rustam Rivero RN RIGHT CABG x 5 - Coronary artery bypass grafts x 5 ([id number]). Ankle ([id number]). Comments: 12/27/2023 10:45 EDT - Archana Hawthorne RN PIN IN ANKLE Social History: Social & Psychosocial Habits Alcohol 12/27/2023 Use: Current Frequency: 1-2 times per year Substance Abuse 12/27/2023 Use: Never Tobacco 12/27/2023 Tobacco Use: Never (less than 100 in l Home/Environment 12/27/2023 Living situation: Home/Independent Safe place to go: Yes Nutrition/Health 12/27/2023 Type of diet: Low sodium Physical Examination Vital Signs 12/27/2023 10:34 EDT Temperature Tympanic 36 DegC LOW Peripheral Pulse Rate 67 bpm Respiratory Rate 16 br/min Systolic Blood Pressure Non-Invasive 154 mmHg HI Diastolic Blood Pressure Non-Invasive 55 mmHg LOW Vital Signs (last 24 hrs) Last Charted Temp TympanicL 36 DegC (DEC 26 10:34) SBPH 154 mmHg (DEC 26 10:34) DBPL 55 mmHg (DEC 26 10:34) BMI20.2 (DEC 26 10:34) Measurements from flowsheet : Measurements 12/27/2023 10:34 EDT Height 167.69 cm Height in inches 66 inch(es) Admission Weight 56.8 kg Weight Lbs 125 lb Weight Method Stated Bradford Body Weight 63.85 kg BSA Admission 1.64 Body Mass Index 20.2 kg/m2 Admission Body Mass Index 20.2 m2 Pain assessment: Pain Assessment 12/27/2023 10:34 EDT Primary Pain Intensity 0 Pain Scale Type 0-10 Pain scale . General: Alert and oriented. Airway: Normal neck range of motion. Mallampati classification: II (soft palate, fauces, uvula visible). Head: Normocephalic. Dentition Evaluation: Intact, Own teeth. Neck: Full range of motion. Respiratory: Lungs are clear to auscultation. Cardiovascular: Normal rate. Heart Sounds: Normal. Gastrointestinal: Soft. Musculoskeletal Normal range of motion. Integumentary: Intact, Warm, Dry. Neurologic: Alert, Oriented. Review / Management Results review: No qualifying data available , Lab results 12/27/2023 10:57 EDT SN - PP - Body Position Cardiac Lateral Right Side-up Standard Intra-op 12/27/2023 10:56 EDT SN - GCD - Post-operative Diagnosis DYSPHAGIA SN - GCD - Case Level OPD Level 3 12/27/2023 10:55 EDT SN - CAt - Case Attendee SN - CAt - Case Attendee SN - CAt - Case Attendee SN - CAt - Case Attendee SN - CAt - Case Attendee SN - CAt - Case Attendee SN - CAt - Case Attendee SN - CAt - Case Attendee SN - CAt - Role Performed Primary Surgeon SN - CAt - Role Performed Cane Furniture Maker 1 SN - CAt - Role Performed Pull Up Hand SN - CAt - Role 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 12/27/2023 10:51 EDT Lactated Ringers Injection Begin Bag 1,000 mL mL 12/27/2023 10:49 EDT Antecubital Left 12/27/2023 22 gauge Peripheral IV Activity: Insert new site Peripheral IV Dressing Condition: Clean, Dry, Intact Peripheral IV Dressing Activity: Transparent dressing Peripheral IV Line Status/Patency: Flushes easily, Continuous infusion Peripheral IV Site Condition: No complications Peripheral IV Number of Attempts: 1 12/27/2023 10:34 EDT Designated Person #1 We May Share [facility] Designated Person #1 We May Share [facility] Designated Person #1 Relationship Spouse Privacy Restrictions Requested None Height 167.69 cm Height in inches 66 inch(es) Admission Weight 56.8 kg Weight Lbs 125 lb Weight Method Stated Bradford Body Weight 63.85 kg BSA Admission 1.64 Body Mass Index 20.2 kg/m2 Admission Body Mass Index 20.2 m2 Temperature Tympanic 36 DegC LOW Peripheral Pulse Rate 67 bpm Respiratory Rate 16 br/min Systolic Blood Pressure Non-Invasive 154 mmHg HI Diastolic Blood Pressure Non-Invasive 55 mmHg LOW Primary Pain Intensity 0 Pain Scale Type 0-10 Pain scale Respirations Unlabored Respiratory Pattern Regular Oxygen Therapy Room air Oxygen Saturation 98 % Abdomen Description Non-distended, Symmetric Abdomen Palpation Non-Tender Bowel Sounds All Quadrants Present Status N/A Skin Temperature Warm Skin Description Normal for ethnicity Skin Integrity Intact Mucous Membrane Color [place] Skin Moisture General Dry Neurological Symptoms Patient denies Extremity Movement Equal Characteristics of Speech Clear Level of Consciousness Alert MARILEE Yes Strength All Extremities Strong Tone All Extremities Normal Sensation All Extremities Intact Affect/Behavior Appropriate, Calm, Cooperative Orientation Oriented x 4 Sensory Deficits None Infectious Disease Symptoms Patient states no symptoms Infectious Disease Recent Exposure No Alcohol and Drug Use No Employee of Institutional Living No Health Care Employee No History of Exposure to TB No History of Positive Chest X-Ray for TB No History of Positive TB Skin Test No Homeless No Known Immunosuppression No Recent Immigrant No Resident of Institutional Living No Bloody Sputum No Fatigue No Fever No Loss of Appetite No Night Sweats No Persistent Cough > 3 Weeks No Weight Loss No Alicia Motor (2) Moves 4 extremities voluntarily or on command Alicia Respirations (2) Spontaneous respiration without support, RR > 10 Alicia Blood Pressure (2) BP 20% above or below preanesthetic level Alicia Pulse (2) Pulse 20% above or below preanesthetic level Alicia Oxygen Saturation (2) 94% or more Alicia Level of Consciousness (2) Fully awake Alicia III Score 12 Barriers to Learning Hearing deficit Teaching Method Explanation, Printed materials Preferred Spoken Language Salvadorean Preferred Written Language Salvadorean Information Given by Patient Patient's Current Physicians Patient's Current Physicians Discharge To, Anticipated Home independently Activity Status ADL Awake Standard Safety ID band on, Allergy Band on, Call device within reach, Bed in low position, Wheels locked, Upper/Half-Length side-rails up, Visitor at bedside, Safety level maintained Prev Test Positive/Diagnosis w/COVID-19 No Current Quarantine/Isolated any Illness No Any Contact with Sick Animals/Birds No Traveled Anywhere in Last 30 Days No N/A Personal Devices, Patient Valuables Dentures, partial plate, Dentures, upper, Glasses, Hearing aid,left, Hearing aid, right Admission Note-Nursing Procedure/Therapy Intake 12/27/2023 10:31 EDT Urinary Elimination Voiding, no difficulties IV Present Present Allergies Yes Anesthesia Extension Set Applied Yes Postal Sorting Officer On Yes Consent Form Signed Yes Patient Dressed In Hospital gown Pre-op Preparation Dentures, full removed, Glass eye removed, Hearing aid, bilateral removed Obstructive Sleep Apnea Assess Completed Yes Belongings At Bedside Pants, Shirt, Shoes, Socks, Undergarments NPO Status Maintained Allergy Band on and Verified Yes Patient ID Band on and Verified Yes Implants Verified Yes Pacemaker/AICD Verified Yes Site Verified by Patient/Family Yes Last Fluid Intake 12/26/2023 22:00 Last Food Intake 12/26/2023 17:30 . Assessment and Plan [place] [employer] Anesthesiologists (ASA) physical status classification: Class II. Anesthetic Preoperative Plan Premedication: intravenous. Anesthetic technique: MAC. Induction: intravenously. Maintenance airway: Mask. Risks discussed: nausea, vomiting, headache, sore throat, dental injury, hypotension, allergic reaction, serious complications. Informed consent: signed by patient. Digitally Signed by JIAN RIVERA on 12/27/2023 10:58 AM [facility]11-11-2021 NotePatient Outreach (NETNAV) FEI ROGERS ([id number]) 1935 M Date Time Provider Department 05/29/21 ALMAZ FOWLER During your visit today, we recorded the following information about you: Almaz Fowler Population Health Navigator 05/29/2021 9:49 AM Signed POPULATION HEALTH NAVIGATION OUTREACH Action/FYI I left a voice message re: pcp No care everywhere Contact made with patient or family member? NO Pt identified by name and : NO Outreach Outcome/Action Unable to reach patient: Left message Reason for Outreach Attribution: Provider Off-boarding Payer: Payor: [employer] MEDICARE ADVANTAGE / Plan[place] / Product Type: HMO / Care Gap Reviewed:: Reminder: Reminder note to check Health Maintenance for items below Health Maintenance items due: COVID-19 VACCINE(1) Never done SHINGRIX VACCINE(1 of 2) Never done INFLUENZA(1) due on 03/19/2021 Advanced Directives Completed: Have you ever planned for future healthcare decisions with a power of district attorney, living will, or advance directives? No. Please bring a copy to your next appointment or email to Referrals: N/A Message Sent to Practice: NO Navigation Signature: Almaz Fowler Population Health Navigator May 29, 2021 9:48 AM Allergies As of Date: 05/29/2021 Noted Allergy Reaction CONTRAST DYE 05/31/2012 14 - Other: See Comments Comments: Use caution when injection with any dye d/t decreased renal functions. HYGROTON 04/18/2019 14 - Other: See Comments Comments: erectile dysfunction Date Reviewed: 11/20/2020 Reviewed by: Loraine Corea LPN - Fully Assessed Reason for Visit: Population Health Navigation Outreach [[id number]] Cmt: Offboarding Prescriptions as of 05/29/2021 - omeprazole (PRILOSEC) 20 mg capsule Take 1 capsule by mouth every morning. - metoprolol tartrate, short acting, (LOPRESSOR) 25 mg tablet Take 1 tablet by mouth twice daily. - atorvastatin (LIPITOR) 20 mg tablet TAKE 1 TABLET BY MOUTH EVERY DAY FOR CHOLESTEROL - sildenafil (VIAGRA) 50 mg tablet use one/day as needed - amLODIPine (NORVASC) 10 mg tablet Take 1 tablet by mouth once daily. - Cholecalciferol, Vitamin D3, (VITAMIN D) 1,000 unit cap Take 1,000 Units by mouth once daily. - Fluorouracil 5 % cream APPLY TO THE FACE TWICE DAILY FOR TWO WEEKS. Problem List As Of Date 05/29/2021 Noted Resolved CAROTID ART STENOSIS-NO INFARCT [I65.29] 10/05/2002 Hyperlipidemia LDL goal <100 [E78.5] 03/30/2005 BENIGN HYPERTENSION [I10] 03/30/2005 BALES'S ESOPHAGUS [K22.70] 10/16/2005 Coronary atherosclerosis [I25.10] 12/02/2007 Skin cancer of arm [C44.601] 05/31/2012 Wound infection (HCC) [T14.8XXA, L08.9] 07/08/2012 04/15/2015 ED (erectile dysfunction) [N52.9] 04/20/2013 Vitamin D deficiency [E55.9] 04/15/2015 Stage 3 chronic kidney disease (HCC) [N18.30] 04/20/2016 History of colon polyps [Z86.010] 04/20/2016 Atherosclerosis of [place] artery of both lower *04/21/2017 Secondary hyperparathyroidism (HCC) [N25.81] 11/01/2017 11/15/2018 Disorder of the skin and subcutaneous tissue, u*04/05/2017 04/25/2018 Encounter Status:Closed by [facility]ATOR, ALMAZ Wallace on 05/29/21[facility]11-11-2021 NoteHNO ID: [id number] Author: Almazmynor Fowler Population Health Navigedson Service: ? Author Type: ? Type: Progress Notes Filed: 05/29/2021 9:49 AM Note Text: POPULATION HEALTH NAVIGATION OUTREACH Action/FYI I left a voice message re: pcp No care everywhere Contact made with patient or family member? NO Pt identified by name and : NO Outreach Outcome/Action Unable to reach patient: Left message Reason for Outreach Attribution: Provider Off-boarding Payer: Payor: [employer] MED[employer]ARE ADVANTAGE / Plan[place] / Product Type: HMO / Care Gap Reviewed:: Reminder: Reminder note to check Health Maintenance for items below Health Maintenance items due: COVID-19 VACCINE(1) Never done SHINGRIX VACCINE(1 of 2) Never done INFLUENZA(1) due on 03/19/2021 Advanced Directives Completed: Have you ever planned for future healthcare decisions with a power of district attorney, living will, or advance directives? No. Please bring a copy to your next appointment or email to [email or web address] Referrals: N/A Message Sent to Practice: NO Navigation Signature: Almaz Fowler Population Health Navigator May 29, 2021 9:48 [facility]05-05-2021 NoteHNO ID: [id number] Author: Jian Ward MD Service: ? Author Type: Physician Type: Progress Notes Filed: 11/21/2020 8:15 AM Note Text: This note was created using Minuberiter. Subjective Patient presents with: Edema Fei Rogers is a 85 year old male here with his spouse for new onset right leg edema, painless. He was not on any new medication. Not mentioned was the fact that he was just discharged from [facility] after syncope, traumatic subarachnoid hemorrhage, and cerebral contusion. He was taken off aspirin. He just saw neurology, Dr. Pantoja, today for a follow up and his SAH was being monitored. Review of Systems Constitutional: Negative. Eyes: Negative. Respiratory: Negative for chest tightness and shortness of breath. Cardiovascular: Negative for chest pain and palpitations. Musculoskeletal: Negative for myalgias. Neurological: Negative for dizziness, speech difficulty, weakness, light-headedness and headaches. 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 - metoprolol tartrate, short acting, (LOPRESSOR) 25 mg tablet Take 1 tablet by mouth twice daily. - atorvastatin (LIPITOR) 20 mg tablet TAKE 1 TABLET BY MOUTH EVERY DAY FOR CHOLESTEROL - sildenafil (VIAGRA) 50 mg tablet use one/day as needed - amLODIPine (NORVASC) 10 mg tablet Take 1 tablet by mouth once daily. - Cholecalciferol, Vitamin D3, (VITAMIN D) 1,000 unit cap Take 1,000 Units by mouth once daily. - Fluorouracil 5 % cream APPLY TO THE FACE TWICE DAILY FOR TWO WEEKS. (Patient not taking: Reported on 11/04/2020) No current facility-administered medications for this visit. Objective BP 138/60 (BP Site: Right Arm, BP Position: Sitting, BP Cuff Size: Regular Adult) Pulse 64 Temp 36.4 ?C (97.5 ?F) (Temporal Artery) Resp 16 Wt 63 kg (139 lb) BMI 22.44 kg/m? Physical Exam Constitutional: General: He is not in acute distress. HENT: Head: Atraumatic. Eyes: Extraocular Movements: Extraocular movements intact. Pupils: Pupils are equal, round, and reactive to light. Cardiovascular: Rate and Rhythm: Normal rate and regular rhythm. Heart sounds: No murmur heard. No gallop. Pulmonary: Breath sounds: Normal breath sounds. No wheezing or rales. Musculoskeletal: General: No tenderness. Right lower leg: Edema present. Left lower leg: Edema present. Comments: 2+ edema, right. Trace edema left. No cords, no Ernie's sign. Neurological: General: No focal deficit present. Mental Status: He is alert. Gait: Gait normal. Psychiatric: Attention and Perception: Attention normal. Speech: Speech normal. Assessment and Plan 1. Edema of right lower leg - ICD9: 782.3, ICD10: R60.0 (primary diagnosis) - US LEG VEIN DVT UNL VAS LAB - Further recommendations will depend on the result. If positive, he may need IVC filter. 2. Subarachnoid hemorrhage following injury, with loss of consciousness, subsequent encounter - ICD9: V58.89, ICD10: S06.6X9D Monitored. 3. Contusion of cerebrum with loss of consciousness, unspecified laterality, subsequent encounter - ICD9: V58.89, ICD10: S06.339D Improved. Jian Ward, [facility]04-27-2021 NoteDepartment of Trauma / Critical Care Discharge Summary Name: Fei Rogers Date: 11/12/2020 10:38 AM : 1935 Age/Sex: 85 y.o. male Admit Date: 11/10/20 Discharge Date: 11/12/20 Attending: Rustam Gasca DO Discharge Diagnosis: No diagnosis found. Patient Active Problem List Diagnosis ? Syncope and collapse ? Subarachnoid hematoma (HCC) Body mass index is 21.99 kg/m?. BMI Classification: Normal Weight (BMI 18.5-24.9) Reason for Hospitalization: The patient was admitted for SAH following a fall on ASA . Hospital Course (Care, treatment and services provided): Please see H&P and prior notes for more detailed summary of previous investigations and clinical assessment prior to this admission. Brief HPI Fei Rogers is a 85 y.o. male with significant past medical history of CAD (s/p CABG), HTN, HLD, CKD, and stroke who presents after a syncopal fall. Patient was walking at his home when he blacked out When he woke up he was in the back of the ambulance. He does not remember anything in between. His states he was walking behind her when she heard a thud. HE does not remember if he felt dizzy or lightheaded.? Hospital course: Patient transferred from OSH on 11/10 after suffering a fall on ASA. CT head showed SAH in right frontal and left temporal regions with small frontal contusion. The patient was monitored in the ICU, passed a swallow eval, underwent MRI/MRA which did not show acute stroke, but did show vertebral V2 segment with significant stenosis. Repeat head CT on 11/12 was also stable. 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 The paitient was evaluated by PT/OT, reccommended to stop taking his home ASA, and given follow-up to neurology in 2 weeks. Consultations: Neurosurgery, PT, OT, first assistant PCP: No primary care provider on file. Recommended Follow-ups: Neurology, PCP Treatments and Procedures with outcomes: Labs: Data Review Data CBC with Differential: Lab Results Component Value Date WBC 9.7 11/11/2020 RBC 4.03 11/11/2020 HGB 12.4 11/11/2020 HCT 38.1 11/11/2020 PLT 238 11/11/2020 CMP: Lab Results Component Value Date NA 139 11/11/2020 K 4.5 11/11/2020 CL 107 11/11/2020 CO2 26 11/11/2020 BUN 34 11/11/2020 CREATININE 1.48 11/11/2020 GLUCOSE 106 11/11/2020 CALCIUM 9.0 11/11/2020 BMP: Hepatic Function Panel: Ionized Calcium: No results found for: IONCA Magnesium: Lab Results Component Value Date MG 1.9 11/11/2020 Phosphorus: Lab Results Component Value Date PHOS 3.8 11/11/2020 PT/INR: Lab Results Component Value Date PROTIME 11.1 11/10/2020 INR 1.0 11/10/2020 PTT: Lab Results Component Value Date APTT 24.2 11/10/2020 [APTT Last 3 Troponin: No results found for: TROPONINI Urine Culture: No components found for: CURINE Blood Culture: No components found for: CBLOOD, CFUNGUSBL Blood Culture from Central Line: No components found for: CBLOODLN Stool Culture: No components found for: CSTOOL Sputum Culture: No components found for: CSPUTUM Sputum Culture for AFB: No components found for: CAFBSM Wound Culture: None Procedures: None Significant Imaging Results: Echo Complete 2d W Doppler W Color Result Date: 11/11/2020 TRANSTHORACIC ECHOCARDIOGRAM PATIENT: Fei Rogers STUDY DATE: 11/11/2020 : 1935 AGE: 85 HT/WT: 167.6 cm (66 61.2 kg (134.7 in) lb) GENDER: M BP: 145 / 76 LOCATION: [facility] PATIENT Inpatient main STATUS: *ORDERING PHYSICIAN: * Ady DerasREADING PHYSICIAN: * Alexandro, *RN DIGESTIVE: * Tessa Victoria Gabriela CCT INDICATIONS: Syncopal Fall, History of 5 Vessel CABG. CONCLUSIONS SUMMARY: 1. Left ventricle: There is mild concentric hypertrophy. Systolic function is normal by the biplane method of disks. The estimated ejection fraction is 58%. There are no regional wall motion abnormalities. Features are consistent with a pseudonormal left ventricular filling pattern, with concomitant abnormal relaxation and increased filling pressure (grade 2 diastolic dysfunction). The ratio of mitral valve peak E velocity to average of medial and lateral annular early diastolic velocity is 25.6. 2. Left atrium: The atrium is moderately dilated. 3. Mitral valve: Mildly to moderately calcified annulus. There is mild, 1+ regurgitation. 4. Aortic valve: There is moderate, 2+regurgitation. 5. Tricuspid valve: There is mild, 1+ regurgitation. STUDY DATA: Complete transthoracic echocardiogram. Procedure: Image quality was adequate. The study was technically limited due to body habitus. Intravenous imaging enhancement (Definity) was administered to opacify the ch (more content not included)...[facility]04-27-2021 History of Present illness Narrative* Bernice Roberts, , RD, LD - 11/12/2020 11:22 AM EDT Comprehensive Nutrition Assessment Type and Reason for Visit: Initial(ICU Admit) Nutrition Recommendations/Plan: 1. Can continue on with Cardiac diet as ordered as long as pt continues to tolerate; would however monitor need to adjust/liberalize to Low Sodium or No Added Salt (given advanced age, BMI, hx, adequacy of intake, etc). 2. Please continue to record % consumed of meals in I/O Flowsheet. 3. RD to monitor weight, labs, fluid, overall nutritional status, & follow up weekly. Nutrition Assessment: Pt with PMH including CAD (s/p CABG), HTN, HLD, CKD and Stroke presented after a syncopal fall. Per chart, pt was walking at home when he 'blacked out', woke up in the back of an ambulance; appears stated pt was walking behind her when she heard a thud, pt does not remember feeling dizzy or lightheaded. S/p presentation, CTH at OSH initially showed SAD and frontal contusion. Once admitted to [facility], Neurosurgery consulted for SAH, repeating head CT and ordered MRI brain/MRI head and neck. Pt passed swallow eval and has been ordered Cardiac diet. Geriatrics also consulted, CLEANER WALL pt comes from home with and independent with ADLs. Appears per chart that pt has been tolerating PO diet/intake. MD in room with pt at time of RD visit. Malnutrition Assessment: Malnutrition Status: Insufficient data(? adequacy of PO intake CLEANER [place]ALL, does appear since admit pt has tolerated, limited weight hx in chart to review, noted advanced age, RD unable to conduct interview this date, monitor as able) Estimated Daily Nutrient Needs: Energy (kcal): 8597-1791 kcal/day; Weight Used for Energy Requirements: Bradford Protein (g): 52-65 gm protein/day; Weight Used for Protein Requirements: Bradford(0.8-1.0 gm protein/kg) Fluid (ml/day): per MD; Method Used for Fluid Requirements: Nutrition Related Findings: +BS; No edema indicated; medications include PPI, statin; labs: BUN (34), Creatinine (1.48) Wounds: (+abrasions; Vik 23) Current Nutrition Therapies: DIET CARDIAC; Anthropometric Measures: Height: 5' 6 (167.6 cm)(per chart) Admission Body Weight: 135 lb (61.2 kg)(bedscale) Usual Body Weight: (per EPIC (limited): 11/04/20- 139#) Bradford Body Weight: 142 lbs; % Bradford Body Weight BMI: 21.9 Adjusted Body Weight: ; No Adjustment BMI Categories: Normal Weight (BMI 22.0 to 24.9) age over 65(~22) Nutrition Diagnosis: Altered nutrition-related lab values related to renal dysfunction as evidenced by lab values Nutrition Interventions: Food and/or Nutrient Delivery: Continue Current Diet Nutrition Education/Counseling: Education not appropriate Coordination of Nutrition Care: Continue to monitor while inpatient Goals: Pt consistently consumes >50% of meals. Nutrition Monitoring and Evaluation: Food/Nutrient Intake Outcomes: Food and Nutrient Intake, Diet Advancement/Tolerance Physical Signs/Symptoms Outcomes: Biochemical Data, Skin, Weight Discharge Planning: Too soon to determine Contact: pager [phone] * Latoya Corona SLP - 11/11/2020 11:06 AM EDT Speech Language Pathology Facility/Department: [facility] ICU T2 CLINICAL BEDSIDE SWALLOW EVALUATION NAME: Fei Rogers : 1935 ADMISSION DATE: 11/10/2020 ADMITTING DIAGNOSIS: has Syncope on their problem list. ONSET DATE: 11/10/2020 Recent Chest Xray/CT of Chest: NA Date of Eval: 11/11/2020 Evaluating Therapist: Latoya Corona Current Diet level: Current Diet : NPO Current Liquid Diet : NPO Primary Complaint Patient Complaint: Hungry and thirsty Pain: RN managing Reason for Referral ; CT head at OSH shows SAH and frontal contusion. ED NOTES: Reason for Admission: SAH (subarachnoid hemorrhage) (HCC) [I60.9] HISTORY OF PRESENT ILLNESS: Fei Rogers is a 85 y.o. male with significant past medical history of CAD (s/p CABG), HTN, HLD, CKD, and stroke who presents after a syncopal fall. Patient was walking at his home when he blackedout When he woke up he was in the back of the ambulance. He does not remember anything in between.His states he was walking behind her when she heard a thud. HE does not remember if he felt dizzy or lightheaded. Fei Rogers was referred for a bedside swallow evaluation to assess the efficiency of his swallowfunction, identify signs and symptoms of aspiration and make recommendations regarding safe dietaryconsistencies, effective compensatory strategies, and safe eating environment. Impression Dysphagia Impression : Patient presents with a clinically functional oropharyngeal swallow pattern.There is no difficulty with mastication, bolus formation or AP transit. There is no wet vocal quality or coughing even with continuous drinks of water. Recommend a Regular diet including thin liquidsand PO meds. No formal dysphagia intervention with Speech therapy is indicated at this time. Pleasere-consult if any concerns arise. Treatment Plan Requires REAL TIME TRADER Intervention: No Duration/Frequency of Treatment: na Recommended Diet and Intervention Diet Solids Recommendation: Regular Liquid Consistency Recommendation: Thin Recommended Form of Meds: PO General Chart Reviewed: Yes Behavior/Cognition: Alert;Cooperative;Pleasant mood O2 Device: None (Room air) Communication Observation: Functional Follows Directions: Simple(Patient is [place]) Dentition: Dentures top;Dentures bottom Patient Positioning: Upright in chair Baseline Vocal Quality: Normal Volitional Cough: Strong Prior Dysphagia History: No prior MBSS in [facility]. Patient denies dysphagia. Spouse is present and reports patient is at baseline. Consistencies Administered: Lemon Ice;Reg solid;Thin - teaspoon;Thin - straw;Dysphagia Pureed (Dysphagia I) Vision/Hearing [place] - does not have his DOHERTY available Oral Motor Deficits Oral/Motor Oral Motor: Within functional limits Oral Phase Dysfunction Oral Phase Oral Phase: WFL Indicators of Pharyngeal Phase Dysfunction Pharyngeal Phase Pharyngeal Phase: WFL Education Patient Education: None required. Safety Devices in place: Yes Therapy Time REAL TIME TRADER Individual Minutes Time In: 1030 Time Out: 1045 Minutes: 15 REAL TIME TRADER Total Treatment Time Total Treatment Time: 15 Latoya Corona MS, CCC/ REAL TIME TRADER 11/11/2020 11:06 AM An N95 mask, a full face shield and gloves were worn throughout this session. * Justo Argueta - 11/11/2020 8:41 AM EDT Physical Therapy Facility/Department: [facility] ICU T2 Initial Assessment NAME: Fei Rogers : 1935 Date of Service: 11/11/2020 Discharge Recommendations: Home independently Assessment Body structures, Functions, Activity limitations: Decreased balance;Decreased cognition Assessment: pt is an 85y.o. M that was admitted to [facility] after experiencing a syncope episode and fell which resulted in an SAH. Pt states he does not remember what happened, but was able to explain the situation since he has been told. Pt is independent from a functional mobility standpoint as he could perform bed mobility, transfers, ambulate, and navigate stairs with a handrail with no difficulty. Recommend home independently for discharge. Prognosis: Excellent Decision Making: Low Complexity PT Education: PT Role;General Safety;Plan of Care REQUIRES PT FOLLOW UP: No Activity Tolerance Activity Tolerance: Patient Tolerated treatment well Patient Diagnosis(es): There were no encounter diagnoses. has a past medical history of CAD (coronary artery disease), Cerebral artery occlusion with cerebral infarction (HCC), CKD (chronic kidney disease), Hyperlipidemia, and Hypertension. has a past surgical history that includes Carotid endarterectomy (Left) and Coronary artery bypass graft. Restrictions Restrictions/Precautions Restrictions/Precautions: Up as Tolerated Position Activity Restriction Other position/activity restrictions: PIV, tele Vision/Hearing Subjective General Chart Reviewed: Yes Patient assessed for rehabilitation services?: Yes Additional Pertinent Hx: syncope episode which lead to fall Family / Caregiver Present: No Diagnosis: SAH Follows Commands: Within Functional Limits Subjective Subjective: Pt was pleasant, cooperative, and agreed to PT Pain Screening Patient Currently in Pain: No Vital Signs Patient Currently in Pain: No Orientation Orientation Overall Orientation Status: Within Functional Limits Social/Functional History Social/Functional History Lives With: Spouse Type of Home: House Home Layout: One level, Work area in basement(finished basement with treadmill that pt states he uses regularly) Bathroom Shower/Tub: Walk-in shower Bathroom Toilet: Standard Bathroom Accessibility: Accessible Receives Help From: Family ADL Assistance: Independent Homemaking Assistance: Independent Ambulation Assistance: Independent Transfer Assistance: Independent Active Vacuum Drier Operator: Yes Mode of Transportation: Car Cognition Cognition Overall Cognitive Status: Exceptions Arousal/Alertness: Appropriate responses to stimuli Following Commands: Follows all commands without difficulty Attention Span: Appears intact Memory: Decreased recall of recent events Safety Judgement: Good awareness of safety precautions Problem Solving: Able to problem solve independently Initiation: Does not require cues Sequencing: Does not require cues Objective Observation/Palpation Posture: Good Observation: pt was lying supine in bed with HOB slightly elevated upon arrival. All four bed railswere up upon arrival. AROM RLE (degrees) RLE AROM: WFL AROM LLE (degrees) LLE AROM : WFL AROM RUE (degrees) RUE AROM : WFL AROM LUE (degrees) LUE AROM : WFL Strength RLE Strength RLE: WFL Strength LLE Strength LLE: WFL Bed mobility Supine to Sit: Modified independent Scooting: Independent Comment: HOB was slightly elevated for supine to sit, but pt was able to perform this task without any UE support. Transfers Sit to Stand: Independent Stand to sit: Independent Comment: sit to stand x 2 - pt was impulsive and performed the first sit to stand when he was askedto just scoot to the EOB. Ambulation Ambulation?: Yes Ambulation 1 Surface: level tile Device: No Device Assistance: Independent Quality of Gait: slight circumduction noted with the RLE during the swing phase of gait. Gait Deviations: Slow Michelle Distance: 150ft Stairs/Curb Stairs?: Yes Stairs # Steps : 18(pt has a longer flight of stairs at home to get into basement) Rails: Right ascending Curbs: 6 Device: No Device Assistance: Modified independent Comment: Used the handrail on the right as this is where the handrail is at home. Balance Posture: Good Sitting - Static: Good Sitting - Dynamic: Good Standing - Static: Good Standing - Dynamic: Fair;+ Comments: pt able to don socks while sitting at EOB with no LOB or unsteadiness. Pt had one episodeof a LOB when ambulating back to the room and talking about why he was admitted, but otherwise was stable ambulating and navigating stairs with one handrail. Plan Plan Times per week: PT eval only Plan weeks: discharge PT Safety Devices Type of devices: Call light within reach, Gait belt, Nurse notified, Left in chair G-Code OutComes Score AM-PAC Score AM-PAC Inpatient Mobility Raw Score : 24 (11/11/20822) AM-PAC Inpatient T-Scale Score : 61.14 (11/11/20822) Mobility Inpatient CMS 0-100% Score: 0 (11/11/20822) Mobility Inpatient CMS G-Code Modifier : CH (11/11/20822) Goals Patient Goals Patient goals : pt wants to go home Therapy Time Individual Concurrent Group Co-treatment Time In 0800 Time Out 0818 Minutes 18 Variance: 1(physician came in to check on pt) Patient's Physical Therapy Plan of Care supervision is transferred to [facility] Department Physical Therapist. Goals and/or treatment plan was established in collaboration with patient/family/other representatives. Justo Argueta, SPT * Ady Fang DO - 11/11/2020 8:11 AM EDT Daily Trauma Progress Note Resident 11/11/2020 8:11 AM Admit Date: 11/10/2020 Post Trauma Day 1 Fall SH on ASA Brief HPI: Fei Rogers is a 85 y.o. male with significant past medical history of CAD (s/p CABG),HTN, HLD, CKD, and stroke who presents after a syncopal fall. Patient was walking at his home when he blacked out When he woke up he was in the back of the ambulance. He does not remember anything in between. His states he was walking behind her when she heard a thud. He does not remember if he felt dizzy or lightheaded. INJURIES: L temporal SAH Small hemorrhagic contusion in R sup frontal lobe PROCEDURES: none CHIEF COMPLAINT: none PREVIOUS 24 HOUR EVENTS: admission Consults IP CONSULT TO NEUROSURGERY IP CONSULT TO PHARMACY IP CONSULT TO [facility] TO CHANGE BASE FLUIDS IP CONSULT TO GERIATRICS MEDICATIONS: Current Facility-Administered Medications Medication Dose Route Frequency Provider Last Rate Last Admin perflutren lipid microspheres (DEFINITY) injection 1.65 mg 1.5 mL Intravenous ONCE PRN Ady Deras MD sodium chloride flush 0.9 % injection 5-40 mL 5-40 mL Intravenous PRN Ady Deras MD sodium chloride flush 0.9 % injection 10 mL 10 mL Intravenous 2 times per day Ady Deras MD sodium chloride flush 0.9 % injection 10 mL 10 mL Intravenous PRN Ady Deras MD 0.9 % sodium chloride infusion 25 mL Intravenous PRN Ady Deras MD ondansetron (ZOFRAN-ODT) disintegrating tablet 4 mg 4 mg Oral Q8H PRN Ady Deras MD Or ondansetron (ZOFRAN) injection 4 mg 4 mg Intravenous Q6H PRN Ady Deras MD 0.9 % sodium chloride infusion Intravenous Continuous Ady Deras MD 75 mL/hr at 11/11/20 0800Rate Verify at 11/11/20 0800 labetalol (NORMODYNE;TRANDATE) injection 10 mg 10 mg Intravenous Q4H PRN Ady Deras MD hydrALAZINE (APRESOLINE) injection 10 mg 10 mg Intravenous Q4H PRN Ady Deras MD acetaminophen (OFIRMEV) infusion 1,000 mg 1,000 mg Intravenous Q8H Cedric Jane MD Stopped at 11/11/20 0456 metoprolol (LOPRESSOR) injection 5 mg 5 mg Intravenous Q8H Cedric Jane MD 5 mg at 11/11/20 0404 pantoprazole (PROTONIX) injection 40 mg 40 mg Intravenous Daily Cedric Jane MD 40 mg at 11/10/202019 And sodium chloride (PF) 0.9 % injection 10 mL 10 mL Intravenous Daily Cedric Jane MD 10 mL at 11/10/202019 ARE THERE PERTINENT UPDATES TO PAST,FAMILY, OR SOCIAL HISTORY?: No Subjective: The patient did desaturate 88% while asleep, and was placed on 2L NC. Now satting appropriately on RA while awake to Patient is not requiring any HTN PRN as he has been at BP goal with scheduled IV lopressor. He has no complaints this AM. Review of Systems Constitutional: Negative for chills, fatigue and fever. HENT: Negative for rhinorrhea, sore throat and trouble swallowing. Eyes: Negative for photophobia and visual disturbance. Respiratory: Negative for cough, shortness of breath and wheezing. Cardiovascular: Negative for chest pain, palpitations and leg swelling. Gastrointestinal: Negative for abdominal pain, constipation, diarrhea, nausea and vomiting. Genitourinary: Negative for difficulty urinating, dysuria and hematuria. Musculoskeletal: Negative for arthralgias, joint swelling and myalgias. Skin: Negative for rash and wound. Neurological: Positive for light-headedness. Negative for dizziness, seizures, syncope and weakness. Psychiatric/Behavioral: Negative for confusion and dysphoric mood. PHQ In the last 2 weeks have you had: 1. Little interest or pleasure in doing things No 2. Been feeling down, depressed, or hopeless No If greater then 0, place CLP consult Date PHQ completed: 11/11/20 Objective: Patient Vitals for the past 24 hrs: BP Temp Temp src Pulse Resp SpO2 Height Weight 11/11/20 0800 139/78 96.8 F (36 C) Oral 69 23 98 % 11/11/20 0700 (!) 149/50 66 14 11/11/20 0630 (!) 146/53 74 20 11/11/20 0615 (!) 129/48 66 15 11/11/20 0600 68 16 98 % 135 lb 5.8 oz (61.4 kg) 11/11/20 0545 (!) 139/57 68 17 11/11/20 0530 (!) 144/51 67 14 11/11/20 0515 (!) 148/56 68 17 11/11/20 0500 (!) 125/52 67 17 97 % 11/11/20 0400 (!) 156/53 98.6 F (37 C) Temporal 70 13 97 % 11/11/20 0345 (!) 156/48 71 14 11/11/20 0330 (!) 150/53 69 14 11/11/20 0315 (!) 147/60 68 15 11/11/20 0300 (!) 146/55 71 16 97 % 11/11/20 0245 (!) 137/50 72 14 11/11/20 0230 (!) 147/49 74 20 11/11/20 0215 (!) 136/46 72 15 11/11/20 0200 (!) 149/48 71 20 95 % 11/11/20 0145 (!) 141/50 72 16 11/11/20 0130 (!) 139/50 74 18 11/11/20 0115 (!) 140/45 74 8 11/11/20 0100 (!) 132/46 73 18 11/11/20 0045 (!) 131/42 73 16 11/11/20 0030 (!) 140/43 75 21 11/11/20 0015 (!) 132/50 98.2 F (36.8 C) Temporal 72 16 97 % 11/11/20 0000 (!) 121/45 75 17 11/10/20 2345 (!) 125/42 74 16 11/10/20 2330 (!) 123/42 76 20 11/10/20 2315 (!) 124/43 77 19 11/10/20 2300 (!) 120/46 76 18 11/10/20 2245 (!) 130/42 74 17 11/10/20 2230 (!) 130/44 78 20 11/10/20 2215 (!) 119/43 75 21 11/10/20 2200 (!) 121/42 73 17 97 % 11/10/20 2145 (!) 123/44 75 18 11/10/20 2130 (!) 122/46 73 17 11/10/20 2115 (!) 114/43 74 18 11/10/20 2100 119/84 80 11 11/10/20 2045 (!) 129/42 76 17 11/10/202029 (!) 153/58 81 22 11/10/202014 (!) 135/50 83 17 11/10/201999 (!) 143/57 98.8 F (37.1 C) Temporal 86 30 100 % 11/10/20 1945 (!) 150/45 87 23 11/10/20 1930 (!) 140/48 85 (!) 6 11/10/20 1915 (!) 142/52 82 18 11/10/20 1900 (!) 124/54 85 (!) 31 11/10/20 1845 (!) 142/47 90 14 11/10/20 1830 (!) 145/52 80 16 99 % 11/10/20 1810 (!) 151/69 82 21 97 % 11/10/20 1800 (!) 163/86 99.1 F (37.3 C) 83 25 97 % 11/10/20 1757 (!) 171/62 99.1 F (37.3 C) Temporal 84 20 (!) 3 % 5' 6 (1.676 m) 139 lb 15.9 oz (63.5 kg) Date 11/11/20 0000 - 11/11/202358 Shift 6775-1547 1335-8477 5630-9921 24 Hour Total INTAKE Shift Total(mL/kg) OUTPUT Urine(mL/kg/hr) 600(1.2) 600 Shift Total(mL/kg) 600(9.8) 600(9.8) Weight (kg) 61.4 61.4 61.4 61.4 Last BM: prior to admit Diet: NPO pending swallow eval PHYSICAL: Physical Exam Constitutional: General: He is not in acute distress. Appearance: He is not ill-appearing. HENT: Head: Normocephalic. Comments: Posterior scalp cephalohematoma Mouth/Throat: Mouth: Mucous membranes are moist. Pharynx: Oropharynx is clear. Eyes: General: No scleral icterus. Extraocular Movements: Extraocular movements intact. Pupils: Pupils are equal, round, and reactive to light. Cardiovascular: Rate and Rhythm: Normal rate and regular rhythm. Heart sounds: No murmur. Pulmonary: Effort: No respiratory distress. Breath sounds: No wheezing or rhonchi. Abdominal: Palpations: There is no mass. Tenderness: There is no abdominal tenderness. There is no guarding. Musculoskeletal: General: Deformity (missing several finger on right hand) present. No tenderness or signs of injury. Skin: General: Skin is warm and dry. Capillary Refill: Capillary refill takes less than 2 seconds. Neurological: General: No focal deficit present. Mental Status: He is alert. Sensory: No sensory deficit. Motor: No weakness. Comments: alert and oriented X4 Psychiatric: Mood and Affect: Mood normal. Behavior: Behavior normal. Sutures or ambrosio? No O2: RA / / / Data Review Data CBC with Differential: Lab Results Component Value Date WBC 9.7 11/11/2020 RBC 4.03 11/11/2020 HGB 12.4 11/11/2020 HCT 38.1 11/11/2020 PLT 238 11/11/2020 CMP: Lab Results Component Value Date NA 139 11/11/2020 K 4.5 11/11/2020 CL 107 11/11/2020 CO2 26 11/11/2020 BUN 34 11/11/2020 CREATININE 1.48 11/11/2020 GLUCOSE 106 11/11/2020 CALCIUM 9.0 11/11/2020 BMP: Hepatic Function Panel:Ionized Calcium: No results found for: IONCA Magnesium: Lab Results Component Value Date MG 1.9 11/11/2020 Phosphorus: Lab Results Component Value Date PHOS 3.8 11/11/2020 PT/INR: Lab Results Component Value Date PROTIME 11.1 11/10/2020 INR 1.0 11/10/2020 PTT: Lab Results Component Value Date APTT 24.2 11/10/2020 [APTT Last 3 Troponin: No results found for: TROPONINI Urine Culture: No components found for: CURINE Blood Culture: No components found for: CBLOOD, CFUNGUSBL Blood Culture from Central Line: No components found for: CBLOODLN Stool Culture: No components found for: CSTOOL Sputum Culture: No components found for: CSPUTUM Sputum Culture for AFB: No components found for: CAFBSM Wound Culture: Radiology: Ct Head Without Contrast Result Date: 11/11/2020 Patient Name: FEI ROGERS Computed Tomography ACCESSION EXAM DATE/TIME PROCEDURE ORDERING PROVIDER [id number] 11/11/2020 04:[address] Head or Brain w/o MD AUGUSTA, ADY Contrast CPT code 58903 Reason For Exam (CT Head or Brain w/o Contrast) repeat after SAH Report CT HEAD: CLINICAL INDICATION: Follow-up for subarachnoid hemorrhage TECHNIQUE: Transaxial CT sequence performed through the head with 3 mm reconstruction. Sagittal and Coronal reconstruction images included. Dose reduction employed with automated exposure control. COMPARISON: Outside examination from one day ago FINDINGS: Again noted is high attenuation subarachnoid blood within the right focal region just superior to the right orbit and in the right parasagittal frontal region near the convexity. There is also subarachnoid blood within the anterior aspect of the middle cranial fossa adjacent to the temporal lobe. There is also relative enlargement of the extra-axial subdural spaces wi th CSF attenuation. There is a thickness on the left of up to 0.6 cm and slightly smaller on the right. Ill-defined low-attenuation region in the left posterior parietal lobe extending from the periphery to the surface of the ventricle corresponds to old infarct. No new focal parenchymal lesion is noted. Brainstem: Normal Visualized Paranasal sinuses: Normal. Mastoid air cells: Normal Visualized Orbits: Normal Calvarium and skull base: Normal IMPRESSION: 1. No change in subarachnoid blood in the right frontal and left temporal regions 2. Small subdural hygromas containing CSF attenuation without evidence of subfalcine or downward transtentorial herniation 3. 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 Computed Tomography Report Report Dictated on Workstation: [facility] --- Final --- Dictated: 11/11/2020 5:41 am Dictating Physician: MD CARTER JEFFREY Signed Date and Time: 11/11/2020 5:49 am Signed by: MD CARTER JEFFREY Transcribed Date and Time: 11/11/2020 5:41 There is no problem list on file for this patient. ASSESSMENT AND PLAN: This is a 85 y.o. male s/p syncopal fall on ASA. He is GCS 15. CT head at OSH shows SAH and frontalcontusion. ASSESSMENT & PLAN: Neuro/Spine: -Consult neurosurgery for SAH -no seizure prophylaxis -Repeat CT head This AM stable - recommending CT Head tomorrow AM, - MRI brain - MRA Head/neck - BP goal of SBP <160 - Hold ASA - passed swallow eval - Pain control: convert IV tylenol 1 G TID to PO -q4h neurochecks -Geriatrics consult - social work consulted HEENT: - No acute issues Cardiovascular: -PRN labetalol and hydralazine for SBP > 160 -restart home metoprolol 25 mg BID - ECHO shows EF 58% with diastolic dysfx, MR,TR, and AR - telemetry -restart home amlodipine and lipitor Pulmonary: - Desat to 88 ON and put on 2L NC - currently on RA -Duonebs prn FEN/GI: -cardiac diet -stop fluids - stop daily BMP : -no acute issues - check UA Heme: - stop CBC ID: -no issues Endo: -TSH, Vit B12, and folate WNL - Vit D active -POC glucose q6h Lines/Devices: PIVProphylaxis: DVT: SCDs, hold lovenox Has DVT PPX been started? No If no, why? SAH and frontal contusion GI: protonix 40 mg QD Pressure Ulcer: none Musculoskeletal: - PT/OT - up with assistance WB Status: RUE:at LUE: at RLE: at LLE: at Disposition: Transfer to 3W Associated attestation - Rosa Jane MD - 11/11/2020 2:13 PM EDT ~~~~~~~~~~~~~~~~~~~~~~~~~~~~~~~~~~~~~~~~~~~~~~~~~~~~~~~~~~~~~ ATTENDING ADDENDUM CC: headache Hospital Problems Last Modified POA Syncope 11/11/2020 Yes I independently saw the above patient and reviewed the recent events, imaging, labs, vital signs; Iperformed a physical exam and ROS on the same date of service as above. My findings agree with the above note except for any details corrected below. 85F s/p fall with SAH, unclear if traumatic vs spontaneous The patient is allergic to IV contrast Discuss with NSG - appreciate recs - MRI brain with MRA head and neck Syncope work up - orthostatics neg Restart home meds Repeat ct in am Downgrade to flood Start diet Bowel regimen Family Communication The family was updated at bedside on the patient's injuries/status, clinical course, and the plan of care. All questions answered. Rosa Jane MD Division of Trauma Department of Surgery [facility] Pager: [phone] ~~~~~~~~~~~~~~~~~~~~~~~~~~~~~~~~~~~~~~~~~~~~~~~~~~~~~~~~~~~~~ This note may have been dictated using [employer] Medical Practice Edition 2.6 and/or [employer] Voice Recognition Feature. The document was proofread; however, unrecognized voice recognition laborer tan house errors may be present. * Justine Melendez, OT - 11/11/2020 7:17 AM EDT Occupational Therapy OT order received. Will put pt on schedule for OT eval. Justine Melendez OTR/L documented in this [employer] Work Phone: [phone] NoteHNO ID: [id number] Author: Marcos Mccann III Service: ? Author Type: Physician Type: Progress Notes Filed: 11/04/2020 10:05 AM Note Text: SUBJECTIVE: This is a 85 year old male that is here today for 1. PAD--walks 1 mi at 2.8 mph pace and 4.6 % grade on the treadmill w/o claudication. 2.hyperlipidemia-tolerates medication well lab review 10/22/20 Glu 111 chol 162 TG 98 HDL 52 LDL 90 creat 1.97 GFR 35 LFTs normal vit D 46 lytes normal 3. hypertension-tolerates medication well 4 hyperlipidemia-tolerates medication well no chest pain, angina, STEWARD, cough PAST MEDICAL HISTORY Diagnosis Date - Anemia of renal disease - Atherosclerosis of [place] artery of both lower extremities with intermittent claudication (HCC) 04/21/2017 - Bales's esophagus - Benign neoplasm of colon - Chronic kidney disease, stage 3 (HCC) - Esophagitis, unspecified - Essential hypertension, benign - Hyperparathyroidism, secondary renal (HCC) - Impaired fasting glucose 12/04/2013 - Nephrosclerosis 04/11/2015 See scanned documents - Other specified anemias - Renal insufficiency 01/07/2012 - Secondary hyperparathyroidism (HCC) 11/01/2017 - Skin cancer of arm 05/31/2012 - Unspecified conductive hearing loss - Unspecified transient cerebral ischemia - Vitamin D deficiency 04/15/2015 Current Outpatient Medications on File Prior to Visit Medication Sig - amLODIPine (NORVASC) 10 mg tablet Take 1 tablet by mouth once daily. - omeprazole (PRILOSEC) 20 mg capsule Take 1 capsule by mouth every morning. - metoprolol tartrate, short acting, (LOPRESSOR) 25 mg tablet Take 1 tablet by mouth twice daily. - atorvastatin (LIPITOR) 20 mg tablet TAKE 1 TABLET BY MOUTH EVERY DAY FOR CHOLESTEROL - Cholecalciferol, Vitamin D3, (VITAMIN D) 1,000 unit cap Take 1,000 Units by mouth once daily. - ASPIRIN 81 MG TAB, DELAYED RELEASE 1 daily - Fluorouracil 5 % cream APPLY TO THE FACE TWICE DAILY FOR TWO WEEKS. (Patient not taking: Reported on 11/04/2020) No current facility-administered medications on file prior to visit. FAMILY HISTORY Problem Relation Age of Onset - Cancer Brother stomach - Diabetes Mother - Coronary Artery Disease Mother - Coronary Artery Disease Brother COPD,CHF,lung cancer - Coronary Artery Disease Brother 7 stents - Coronary Artery Disease Brother CABG - Coronary Artery Disease Brother stomach cancer Social History Tobacco Use - Smoking status: Former Smoker Packs/day: 1.50 Years: 3.00 Pack years: 4.50 Quit date: 10/30/1957 Years since quittin.0 - Smokeless tobacco: Never Used Substance Use Topics - Alcohol use: No - Drug use: No BP 136/72 Pulse 64 Temp 36.6 ?C (97.8 ?F) Resp 18 Wt 63 kg (139 lb) SpO2 98% BMI 22.44 kg/m? . OBJECTIVE: APPEARANCE Well appearing, alert, in no acute distress, well-hydrated, well nourished. NECK Supple, no adenopathy; thyroid symmetric, normal size, no bruits HEART RRR with normal S1 and S2, no murmurs, no gallops, no JVD appreciated LUNG clear to auscultation ASSESSMENT: PAD--stable hypertension-at goal hyperlipidemia-at goal ASHD-stable PLAN: healthy diet and regular exercise same medications return to office with labs in 6 mos Marcos Mccann III MD Medical Decision Making: Problems: Moderate: 2+ stable chronic illnesses Data: Unique test result(s) reviewed: 3+ Risk: Moderate: Drug management Medical Decision Making Level: 4 - Moderate Marcos Mccann III [facility]04-06-2021 NotePatient Outreach (INTMMN) FEI ROGERS ([id number]) 1935 M Date Time Provider Department 10/22/20 MARCOS MCCANN III During your visit today, we recorded the following information about you: Allergies As of Date: 10/22/2020 Noted Allergy Reaction CONTRAST DYE 05/31/2012 14 - Other: See Comments Comments: Use caution when injection with any dye d/t decreased renal functions. HYGROTON 04/18/2019 14 - Other: See Comments Comments: erectile dysfunction Date Reviewed: 04/30/2020 Reviewed by: Deloris ([facility]) DAVID Mccormick - Fully Assessed Visit Diagnosis:Medication management [Z79.899] Order(s):HGB A1C [[id number]] Order #: [id number] FUTURE CBC [SQCBC] Order #: [id number] FUTURE Prescriptions as of 10/22/2020 Sig: AMLODIPINE 10 MG TABLET Take 1 tablet by mouth once d* OMEPRAZOLE 20 MG CAPSULE,LACEY* Take 1 capsule by mouth every* METOPROLOL TARTRATE 25 MG TAB* Take 1 tablet by mouth twice * ATORVASTATIN 20 MG TABLET TAKE 1 TABLET BY MOUTH EVERY * CHOLECALCIFEROL (VITAMIN D3) * Take 1,000 Units by mouth onc* FLUOROURACIL 5 % TOPICAL CREAM APPLY TO THE FACE TWICE DAILY* * ASPIRIN 81 MG TABLET,DELAYED * 1 daily Problem List As Of Date 10/22/2020 Noted Resolved CAROTID ART STENOSIS-NO INFARCT [I65.29] 10/05/2002 Hyperlipidemia LDL goal <100 [E78.5] 03/30/2005 BENIGN HYPERTENSION [I10] 03/30/2005 BALES'S ESOPHAGUS [K22.70] 10/16/2005 Coronary atherosclerosis [I25.10] 12/02/2007 Skin cancer of arm [C44.601] 05/31/2012 Wound infection (HCC) [T14.8XXA, L08.9] 07/08/2012 04/15/2015 ED (erectile dysfunction) [N52.9] 04/20/2013 Vitamin D deficiency [E55.9] 04/15/2015 Stage 3 chronic kidney disease (HCC) [N18.30] 04/20/2016 History of colon polyps [Z86.010] 04/20/2016 Atherosclerosis of chipewwa artery of both lower *04/21/2017 Secondary hyperparathyroidism (HCC) [N25.81] 11/01/2017 11/15/2018 Disorder of the skin and subcutaneous tissue, u*04/05/2017 04/25/2018 Encounter Status:Closed by PATRIZIA ROGERS on 10/25/20[facility] 08-09-2020 NotePatient Outreach (COOCC3) FEI ROGERS ([id number]) 1935 M Date Time Provider Department 08/09/20 LUZMARIA SILVER3 During your visit today, we recorded the following information about you: Allergies As of Date: 08/09/2020 Noted Allergy Reaction CONTRAST DYE 05/31/2012 14 - Other: See Comments Comments: Use caution when injection with any dye d/t decreased renal functions. HYGROTON 04/18/2019 14 - Other: See Comments Comments: erectile dysfunction Date Reviewed: 04/30/2020 Reviewed by: Deloris ([facility]) DAVID Mccormick - Fully Assessed Order(s):SARS-COVID VACCINE 1ST DOSE APPT [[id number]] Order #: [id number] FUTURE Prescriptions as of 08/09/2020 Sig: AMLODIPINE 10 MG TABLET Take 1 tablet by mouth once d* OMEPRAZOLE 20 MG CAPSULE,LACEY* Take 1 capsule by mouth every* METOPROLOL TARTRATE 25 MG TAB* Take 1 tablet by mouth twice * ATORVASTATIN 20 MG TABLET TAKE 1 TABLET BY MOUTH EVERY * CHOLECALCIFEROL (VITAMIN D3) * Take 1,000 Units by mouth onc* FLUOROURACIL 5 % TOPICAL CREAM APPLY TO THE FACE TWICE DAILY* * ASPIRIN 81 MG TABLET,DELAYED * 1 daily Problem List As Of Date 08/09/2020 Noted Resolved CAROTID ART STENOSIS-NO INFARCT [I65.29] 10/05/2002 Hyperlipidemia LDL goal <100 [E78.5] 03/30/2005 BENIGN HYPERTENSION [I10] 03/30/2005 BALES'S ESOPHAGUS [K22.70] 10/16/2005 Coronary atherosclerosis [I25.10] 12/02/2007 Skin cancer of arm [C44.601] 05/31/2012 Wound infection (HCC) [T14.8XXA, L08.9] 07/08/2012 04/15/2015 ED (erectile dysfunction) [N52.9] 04/20/2013 Vitamin D deficiency [E55.9] 04/15/2015 Stage 3 chronic kidney disease (HCC) [N18.30] 04/20/2016 History of colon polyps [Z86.010] 04/20/2016 Atherosclerosis of chipewwa artery of both lower *04/21/2017 Secondary hyperparathyroidism (HCC) [N25.81] 11/01/2017 11/15/2018 Disorder of the skin and subcutaneous tissue, u*04/05/2017 04/25/2018 Letter Text Encounter Status:Closed by PATRIZIA ROGERS on 08/12/20[facility] Evaluation note* Diagnosis Syncope and collapse- Primary Subarachnoid hematoma, with loss of consciousness of 30 minutes or less, initial encounter ([facility]) documented in this encounter [facility] Work Phone: Hospital course Narrative No data available for this section [facility] Hospital Discharge instructions* Attachments The following attachments cannot be sent through Care Everywhere. * Head Injury: Closed: General Info (Salvadorean) * Fainting (Salvadorean) * Subarachnoid Hemorrhage: General Info (Salvadorean) [facility] Work Phone: Reason for Referral Status Reason Specialty Diagnoses / Procedures Referred By Contact Referred To Contact [facility] Required Neurology Diagnoses Syncope and collapse Subarachnoid hematoma, with loss of consciousness of 30 minutes or less, initial encounter ([facility]) Ady Fang, [place] [facility] [place] [address] [facility] [address] [place] [id number] Scheduling Instructions [facility] - [address] [address] Fax: Advance Directives No Advanced Directives Records FoundLatest Code Status on File Code Status Date Activated Date Inactivated Comments Full Code 11/10/2020 6:40 PM Summary Purpose Family History No Family History Records FoundNo Family History Records Found No data available for this section No data available for this section No data available for this section No Family History Records Found Additional Source Comments (unrecognized sect ion and content) No Status Records FoundNo Status Records FoundNo Status Records Found INFORMATION SOURCE (unrecogn ized section and content) DATE CREATED AUTHOR 11/21/2020 [facility] DATE CREATED AUTHOR AUTHOR'S ORGANIZ ATION 07/07/2021 [facility] DATE CREATED AUTHOR AUTHOR'S ORGANIZ ATION 02/09/2024 [facility] ([place]) Patient Care team informatio n (unrecognized section and content) Care Team Personnel Name: AMANDA DAVIS DO Member Role: Primary Care Physician Address: Address: [address] [place] [address] Care Team Related Persons Name: MIGUEL A ROGERS Care Team Personnel Name: AMANDA DAVIS DO Member Role: Primary Care Physician Address: Address: [address] [place] [address] Care Team Related Persons Name: MIGUEL A ROGERS Care Team Personnel Name: AMANDA DAVSI DO Member Role: Primary Care Physician Address: Address: [address] [place] [address] Care Team Related Persons Name: MIGUEL A ROGERS FOR RECORDS PERTAINING TO PATIENTS WHO ARE OR HAVE BEEN ENROLLED IN A CHEMICAL DEPENDENCY/SUBSTANCEABUSE PROGRAM, SOME INFORMATION MAY BE OMITTED. This clinical summary was aggregated from multiple sources. Caution should be exercised in using it in the provision of clinical care. This summary normalizes information from multiple sources, and as a consequence, information in this document may materially change the coding, format and clinical context of patient data. In addition, data may be omitted in some cases. CLINICAL DECISIONS SHOULD BE BASED ON THE PRIMARY CLINICAL RECORDS. [facility] [employer] [facility]. provides no warranty or guarantee of the accuracy or completeness of information in this document.
--- NOTE | 2024-05-07 15:25 | ED.VIS.DYS ---
HPI History of Present Illness Chief Complaint: Shortness of Breath Narrative Narrative: Chief complaint and HPI: Shortness of breath. 88-year-old male with history of HTN, CAD status post CABG, GERD presents for evaluation of shortness of breath. Patient states he has had progressive shortness of breath over the last several days. Shortness of breath is worse with exertion. He states at baseline he has mild swelling of the right lower extremity compared to the left. He states this is not any worse. He has no pain in this extremity. He denies any recent travel or surgery. He denies any fever, chills, URI symptoms, cough, abdominal pain, nausea, vomiting, body aches. Presentation, patient was 83% on room air. Placed on 2 L nasal cannula with improvement in oxygen. Review of systems: See HPI Medications: As listed on the chart Allergies: As listed on the chart PFSH: Per chart Vital signs: As listed on the chart. Reviewed. Physical exam: Gen: A&O x3, NAD Head: Normocephalic, atraumatic Eyes: No sclera icterus, conjunctiva clear ENT: Moist mucous membranes Neck: Trachea midline, No JVD CV: RRR, no murmurs, no significant peripheral edema Resp: Lungs CTA BL, no w/r/c, on 2 L nasal cannula GI: Abd soft, non-distended, non-tender, no r/r/g Musc: Full ROM, no deformity Skin: Warm, dry Neuro: Alert, oriented, grossly intact, sensation intact Psych: Cooperative, appropriate mood and affect [facility] Medical History Hiatal hernia Kidney disease TIA (transient ischemic attack) Hypertension Wears hearing aid Wears glasses Wears partial dentures Wears dentures History of renal disease High cholesterol Easy bruising Injury of head and neck Difficulty swallowing History of hiatal hernia Gastric reflux Former smoker Leg cramps History of pain when walking History of edema History of echocardiogram Cardiology follow-up encounter Syncope (10/2020) History of CVA (cerebrovascular accident) Traumatic subarachnoid hemorrhage (10/2020) Hyperlipidemia Claudication Barretts esophagus TIA (transient ischemic attack) Atherosclerotic heart disease of [place] coronary artery without angina pectoris Left bundle branch block Carotid bruit Left carotid artery stenosis Angiopathy, peripheral Home Medications ?Medication ?Instructions ?Recorded ?Last Taken ?Type aspirin 81 mg tablet,delayed 81 mg PO QDAY SUPPLEMENT 11/04/17 02/26/24 History release (Adult Low Dose Aspirin) cholecalciferol (vitamin D3) 25 1,000 unit PO QDAY SUPPLEMENT 03/11/23 02/26/24 History mcg (1,000 unit) capsule omeprazole 20 mg capsule,delayed 20 mg PO BID GERD #180 caps 02/11/24 02/28/24 Rx release amlodipine 10 mg tablet 10 mg PO DAILY BP #90 TABLETS 03/21/24 Unknown Rx hydrochlorothiazide 25 mg tablet 25 mg PO DAILY BP #90 TABLETS 03/21/24 Unknown Rx metoprolol tartrate 25 mg tablet 25 mg PO BID BP #180 TABLETS 03/21/24 Unknown Rx atorvastatin 20 mg tablet 20 mg PO QPM H;D 03/27/24 Unknown History Allergy/AdvReac Type Severity Reaction Status Date / Time Iodinated Contrast Media AdvReac Severe CKD Verified 05/07/24 14:02 (Iodinated Contrast- Oral and IV Dye) Family History Mother CAD (coronary artery disease) Diabetes Myocardial infarction Brother CAD (coronary artery disease) Hx of CABG Brother CAD (coronary artery disease) Surgical History History of esophagogastroduodenoscopy (EGD) Hx of right cataract extraction Hx of left cataract extraction Hx of colonoscopy Hx of foot surgery History of left-sided carotid endarterectomy (2000) 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) Social History Smoking Status: Former smoker alcohol intake: current details: Rare substance use type: does not use caffeine: Yes Type: coffee Number of servings: 3 EXAM Physical Exam Const Vital Signs: 05/07/24 14:00 05/07/24 14:01 05/07/24 15:33 Temperature 97.8 F Temperature Source Temporal Pulse Rate 87 Respiratory Rate 22 H Respiratory Effort Respiratory Depth Respiratory Pattern Blood Pressure 157/59 H Blood Pressure Mean 91 Pulse Ox 83 94 Oxygen Delivery Method Room Air Nasal Cannula Nasal Cannula Oxygen Flow Rate (L/min) 2 2 05/07/24 15:34 05/07/24 16:00 05/07/24 16:01 Temperature 98.1 F Temperature Source Temporal Pulse Rate 80 84 Respiratory Rate 31 H Respiratory Effort Short of Breath Respiratory Depth Normal Respiratory Pattern Tachypnea Blood Pressure 143/56 H 143/56 H Blood Pressure Mean 85 85 Pulse Ox 92 91 Oxygen Delivery Method Nasal Cannula Nasal Cannula Nasal Cannula Oxygen Flow Rate (L/min) 2 2 4 05/07/24 17:00 Temperature Temperature Source Pulse Rate 88 Respiratory Rate 26 H Respiratory Effort Respiratory Depth Respiratory Pattern Blood Pressure 145/58 H Blood Pressure Mean 87 Pulse Ox 91 Oxygen Delivery Method Nasal Cannula Oxygen Flow Rate (L/min) MDM MDM MDM Narrative Medical decision making narrative: 88-year-old male with history of HTN, CAD status post CABG, GERD presents for evaluation of shortness of breath. On presentation, patient was 83% on room air. Placed on 2 L nasal cannula with improvement in oxygen. Differential diagnosis includes but is not limited to pneumonia, viral illness, PE, CHF. EKG reviewed. CBC with a leukocytosis of 14.6. Patient has baseline anemia of 11.2. BMP shows baseline CKD with a creatinine of 2.19. Troponin 100. Repeat 109. Patient not having any chest pain. BNP is elevated at 1783. Patient has no large effusion on chest x-ray and is not fluid overloaded on physical exam therefore Lasix not given. Chest x-ray is positive for pneumonia. Will cover for community-acquired pneumonia, Rocephin and azithromycin ordered. D-dimer elevated at 2.16. I suspect his D-dimer is elevated secondary to his pneumonia however cannot fully rule out PE. Patient has renal insufficiency with creatinine of 2.19. Not a candidate for CTA with contrast. Patient may require V/Q study to assess for PE. Regardless given his acute hypoxic respiratory failure and bilateral pneumonia patient will warrant admission. Patient and were updated of all the results and confirmed understanding of the plan. Patient was discussed with the hospitalist service Dr. Nguyen who accepted admission. COVID, flu, RSV negative. EKG: Interpreted by me/EM physician: EKG shows sinus rhythm with no left bundle branch block. He has PACs. Heart rate 83. No acute ischemic changes Diagnostic: Interpreted by me/EM physician: Chest x-ray shows bilateral infiltrates concerning for pneumonia Impression: 1. Acute hypoxic respiratory failure requiring nasal cannula 2. Bilateral pneumonia 3. Elevated troponin 4. Elevated BNP 5. Elevated D-dimer Lab Data Labs: Laboratory Results - last 24 hr 05/07/24 15:10 WBC 14.6 H RBC 3.58 L Hgb 11.2 L Hct 33.5 L MCV 93.6 MCH 31.3 MCHC 33.4 RDW Std Deviation 45.3 H RDW Coeff of [place] 13.2 Plt Count 222 MPV 10.9 Immature Gran % (Auto) 0.600 Neut % (Auto) 82.0 H Lymph % (Auto) 2.9 L [place] % (Auto) 14.3 H Eos % (Auto) 0.0 Baso % (Auto) 0.2 Absolute Neuts (auto) 12.0 H Absolute Lymphs (auto) 0.43 L Nucleated RBC % 0 Differential Comment SEE COMMENTS Diff Path Review May foll Platelet Estimate ADEQUATE RBC Morphology N CHROM Anisocytosis RARE Macrocytosis RARE Ovalocytes RARE D-Dimer Quant (PE/DVT) 2.16 H* Sodium 136 Potassium 3.8 Chloride 99 Carbon Dioxide 28.0 Anion Gap 9 BUN 56 H Creatinine 2.19 H Estim Creat Clear Calc 20.67 Est GFR (MDRD) Af Amer 37 L Est GFR (MDRD) Non-Af 30 L BUN/Creatinine Ratio 25.6 H Glucose 173 H Calcium 9.3 Magnesium 1.9 Troponin I High Sens 100 H B-Natriuretic Peptide 1783.5 H Radiography Diagnostic Testing: Clinical Impression(s) from Imaging Studies Chest X-Ray 05/07/24 16:20 IMPRESSION: Bibasilar infiltrates and small pleural effusions. Findings consistent with infection. Recommend short-term follow-up to complete resolution. Electronically Signed: Francois Adams MD at 16:34 EDT , Discharge Plan Disposition Disposition: Acute Care Hospital [facility] Discharge Date/Time: 05/07/24 18:45
[2024-05-07 15:52] LABS: Absolute Lymphocyte Count 0.43 X10^3/uL (0.83-4.51); Basophil# 0.03 X10^3/uL; Basophil% 0.2 % (0-1); Hematocrit 33.5 % (40-54); Hemoglobin 11.2 g/dL (13.0-16.5); Lymphocyte # 0.43 X10^3/ul (0.83-4.51); Lymphocyte % 2.9 % (19-41); Mean Corp Hgb Conc 33.4 g/dL (32-36); Mean Corpuscular Hgb 31.3 pg (27.0-32.0); Mean Corpuscular Volume 93.6 fL (80-94); Mean Platelet Vol. 10.9 fl (6.2-12.0); Monocyte# 2.08 X10^3/uL; Monocyte% 14.3 % (0-10); NRBC Flagged by Analyzer 0 % (0-5); Neutrophil # 11.95 X10^3/uL (2.7-7.7); POSITIVE DIFFERENTIAL YES; Platelet Count 222 K/mm3 (150-450); RBC Distribution Width CV 13.2 % (11.6-14.6); RBC Distribution Width SD 45.3 fl (35.1-43.9); Red Blood Count 3.58 M/mm3 (4.6-6.2); White Blood Count 14.6 K/mm3 (4.4-11.0)
[2024-05-07 15:55] LABS: Differential Indicated SCAN CRITERIA MET
[2024-05-07 16:09] LABS: D-Dimer Quantitative (DVT/PE) 2.16 FEU/ug/m (0.27-0.49)
[2024-05-07 16:14] LABS: Anion Gap 9 (5-15); BUN 56 mg/dL (7-18); BUN/Creat Ratio 25.6 RATIO (10-20); Calcium,Total 9.3 mg/dL (8.5-10.1); Chloride 99 mmol/L (98-107); Creatinine, Serum 2.19 mg/dL (0.70-1.30); EST Glomerular Filtration Rate 30 mL/min (>60); Est Glom Filt Rate - Afr Amer 37 mL/min (>60); Estimated Creatinine Clearance 20.67 ml/min; Glucose 173 mg/dL (74-106); Potassium 3.8 mmol/L (3.5-5.1); Sodium Level 136 mmol/L (136-145); Troponin-I HS 100 pg/mL (3.0-78.0)
--- NOTE | 2024-05-07 16:20 | RAD_ITS ---
INDICATION: Shortness of breath EXAMINATION/TECHNIQUE: X-RAY - XR Chest 2 Views COMPARISON: 11/10/2020 FINDINGS: LINES/DEVICES: None. LUNGS: Hazy bibasilar airspace opacification and small pleural effusions. No consolidations or vascular congestion. MEDIASTINUM AND CARDIOVASCULAR STRUCTURES: Cardiac silhouette stable within upper normal limits. CABG changes. BONES AND SOFT TISSUES: No acute changes. RAD/Chest PA and Lateral IMPRESSION: Bibasilar infiltrates and small pleural effusions. Findings consistent with infection. Recommend short-term follow-up to complete resolution. Electronically Signed: Francois Adams MD at 16:34 EDT ,
[2024-05-07 16:31] LABS: BNP,B-Type NATRIURETIC PEPTIDE 1783.5 pg/mL (0-100)
[2024-05-07 16:42] LABS: Anisocytosis RARE; Differential Comment SEE COMMENTS; Macrocytosis RARE; Ovalocyte RARE; Platelet Estimate ADEQUATE (ADEQ); Red Cell Morphology N CHROM NORMAL (NORM C&C)
--- NOTE | 2024-05-07 17:27 | HP.PCM.HOS_ITS ---
HPI - General General Date of Admission: 05/07/24 Date of Service: 05/07/24 Chief Complaint: Shortness of breath for several days. HPI Narrative FEI ROGERS, is a 88 M came to ED with shortness of breath for last several days. He is also feeling chills but no any measured fever. Patient not on baseline home oxygen but was hypoxic 83% on room medical ED. Patient denies cough, sinus symptoms, headache, abdominal pain, nausea vomiting. He has history of gastric reflux, hiatus hernia and dysphagia and had esophageal stent by Dr. Carlin. 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 Mild bilateral leg swelling without any new change, right more than left, chronic after ankle fracture and pinning in the past. Chest x-ray newly reviewed and shows bibasilar infiltrates in lower lobes and small pleural effusions. In ED, vitals reviewed does not show fever but patient tachypneic and hypoxic. Patient was given IV ceftriaxone and azithromycin by ED physician. [facility] Medical History Hiatal hernia Kidney disease TIA (transient ischemic attack) Hypertension Wears hearing aid Wears glasses Wears partial dentures Wears dentures History of renal disease High cholesterol Easy bruising Injury of head and neck Difficulty swallowing History of hiatal hernia Gastric reflux Former smoker Leg cramps History of pain when walking History of edema History of echocardiogram Cardiology follow-up encounter Syncope (10/2020) History of CVA (cerebrovascular accident) Traumatic subarachnoid hemorrhage (10/2020) Hyperlipidemia Claudication Barretts esophagus TIA (transient ischemic attack) Atherosclerotic heart disease of [place] coronary artery without angina pectoris Left bundle branch block Carotid bruit Left carotid artery stenosis Angiopathy, peripheral Home Medications ?Medication ?Instructions ?Recorded ?Last Taken ?Type aspirin 81 mg tablet,delayed 81 mg PO QDAY SUPPLEMENT 11/04/17 02/26/24 History release (Adult Low Dose Aspirin) cholecalciferol (vitamin D3) 25 1,000 unit PO QDAY SUPPLEMENT 03/11/23 02/26/24 History mcg (1,000 unit) capsule omeprazole 20 mg capsule,delayed 20 mg PO BID GERD #180 caps 02/11/24 02/28/24 Rx release amlodipine 10 mg tablet 10 mg PO DAILY BP #90 TABLETS 03/21/24 Unknown Rx hydrochlorothiazide 25 mg tablet 25 mg PO DAILY BP #90 TABLETS 03/21/24 Unknown Rx metoprolol tartrate 25 mg tablet 25 mg PO BID BP #180 TABLETS 03/21/24 Unknown Rx atorvastatin 20 mg tablet 20 mg PO QPM H;D 03/27/24 Unknown History Allergy/AdvReac Type Severity Reaction Status Date / Time Iodinated Contrast Media AdvReac Severe CKD Verified 05/07/24 14:02 (Iodinated Contrast- Oral and IV Dye) Family History Mother CAD (coronary artery disease) Diabetes Myocardial infarction Brother CAD (coronary artery disease) Hx of CABG Brother CAD (coronary artery disease) Surgical History History of esophagogastroduodenoscopy (EGD) Hx of right cataract extraction Hx of left cataract extraction Hx of colonoscopy Hx of foot surgery History of left-sided carotid endarterectomy (2000) 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) Social History Smoking Status: Former smoker alcohol intake: current details: Rare substance use type: does not use caffeine: Yes Type: coffee Number of servings: 3 ROS ROS Narrative Constitutional: Reports fatigue and weakness. No fever no chills. HEENT: Reports systems reviewed and no addt'l complaints, except as documented Respiratory/Chest: No acute shortness of breath or respiratory distress or wheezing. CVS: No chest pain pressure or tightness. CAD status post 5 vessel CABG in 2007 and stent Gastrointestinal: History of GERD and heartburn. Denies coffee ground emesis, hematemesis or vomiting Genitourinary: Denies burning urination or new urinary tract symptoms Musculoskeletal: Denies acute joint pain or limited range of motion. No acute injury Neurologic: Denies seizure-like symptoms. skin: No ulcer. No rash Endocrinology: Reports systems reviewed and no addt'l complaints, except as documented Hematologic/Lymphatic: Reports systems reviewed and no addt'l complaints, except as documented Rest 14 ROS are negative except as mentioned in HPI Vital Signs Vital Signs Vital Signs: 05/07/24 14:00 05/07/24 14:01 05/07/24 15:33 Temperature 97.8 F Temperature Source Temporal Pulse Rate 87 Respiratory Rate 22 H Respiratory Effort Respiratory Depth Respiratory Pattern Blood Pressure 157/59 H Blood Pressure Mean 91 Pulse Ox 83 94 Oxygen Delivery Method Room Air Nasal Cannula Nasal Cannula Oxygen Flow Rate (L/min) 2 2 05/07/24 15:34 05/07/24 16:00 05/07/24 16:01 Temperature 98.1 F Temperature Source Temporal Pulse Rate 80 84 Respiratory Rate 31 H Respiratory Effort Short of Breath Respiratory Depth Normal Respiratory Pattern Tachypnea Blood Pressure 143/56 H 143/56 H Blood Pressure Mean 85 85 Pulse Ox 92 91 Oxygen Delivery Method Nasal Cannula Nasal Cannula Nasal Cannula Oxygen Flow Rate (L/min) 2 2 4 Weight Weight: 139 lb 8 oz Body Mass Index (BMI) 23.2 Physical Exam Narrative General: Alert, Oriented x3, Cooperative. BMI 23.2 kg/m?. HEENT: Atraumatic, PERRLA, EOMI, Normocephalic Oral: Oral mucosa dry. No Gingival or Mucosal Lesions/ Ulcerations Neck: Supple, No JVD, Negative Carotid Bruits Chest wall/Lungs: Air entry diminished in bilateral lung bases. No crepitation/rhonchi Cardiovascular: Sinus rhythm, Normal S1, Normal S2, systolic murmur. Abdomen: Bowel Sounds Present, Soft, Non Tender, Non-Distended : No dysuria. No renal angle tenderness. No suprapubic tenderness. Extremities: Mild bilateral leg swelling, right more than left, Capillary Refill Less than 3 Seconds Skin: No rashes, No breakdown Musculoskeletal: No Tenderness to Palpation of Joints or Extremities Neurological: Cranial nerves II-XII grossly intact, DTR 2+/4. No acute focal neurological deficit. Psych/Mental Status: Flat affect Results Lab / Micro Data 05/07/24 15:10 05/07/24 15:10 Labs: Laboratory Results - last 24 hr 05/07/24 15:10: WBC 14.6 H, RBC 3.58 L, Hgb 11.2 L, Hct 33.5 L, MCV 93.6, MCH 31.3, MCHC 33.4, RDW Std Deviation 45.3 H, RDW Coeff of [place] 13.2, Plt Count 222, MPV 10.9, Immature Gran % (Auto) 0.600, Neut % (Auto) 82.0 H, Lymph % (Auto) 2.9 L, [place] % (Auto) 14.3 H, Eos % (Auto) 0.0, Baso % (Auto) 0.2, Absolute Neuts (auto) 12.0 H, Absolute Lymphs (auto) 0.43 L, Nucleated RBC % 0, Differential Comment SEE COMMENTS, Diff Path Review May foll, Platelet Estimate ADEQUATE, RBC Morphology N CHROM, Anisocytosis RARE, Macrocytosis RARE, Ovalocytes RARE, D- Dimer Quant (PE/DVT) 2.16 H*, Sodium 136, Potassium 3.8, Chloride 99, Carbon Dioxide 28.0, Anion Gap 9, BUN 56 H, Creatinine 2.19 H, Estim Creat Clear Calc 20.67, Est GFR (MDRD) Af Amer 37 L, Est GFR (MDRD) Non-Af 30 L, BUN/Creatinine Ratio 25.6 H, Glucose 173 H, Calcium 9.3, Troponin I High Sens 100 H, B- Natriuretic Peptide 1783.5 H Micro: Microbiology 05/07/24 15:38 Mucosa - Nose SARS-CoV-2, Influenza & RSV (PCR) - Final Imaging Radiology Impression Chest X-Ray 05/07/24 16:20 IMPRESSION: Bibasilar infiltrates and small pleural effusions. Findings consistent with infection. Recommend short-term follow-up to complete resolution. Electronically Signed: Francois Adams MD at 16:34 EDT , Assessment & Plan Assessment/Plan (1) Bilateral pneumonia: PLAN: Plan This 88-year-old gentleman came to ED for shortness of breath for several days. 1. Bilateral pneumonia with hypoxia: Patient is being admitted in PCU. Currently, SpO2 91% on 4 L of oxygen. Started on IV ceftriaxone azithromycin continue. Pneumonia infectious workup ordered. Patient has leukocytosis mainly neutrophil/polymorphs and and lymphopenia. 2. Elevated D-dimer: Patient does not have history of DVT/PE. Chronic right leg swelling slightly more than left leg. Venous duplex and VQ scan ordered as patient cannot have CTA chest because of CKD. Empiric Lovenox 1 g/kg every 12 hourly ordered. Discontinue once DVT/PE workup is negative 3. CKD stage IV: BUNs/creatinine 56/2.19 on baseline. His creatinine varies between 2.03-2.5 depending on the fluid shift. Monitor kidney function. 4. CAD status post CABG and stent with elevated troponin: Home cardiac medications continued. Patient denies any chest pain. Troponin is elevated 100. Cycle cardiac enzymes. twelve-lead EKG individually reviewed, NSR at PAC with chronic ST-T changes, slight ST elevation in V1 V2 V3 and ST depression V5 V6 and 1. No acute change since April 11, 2024 therefore I do not suspect ACS Echo 04/19/2023 Interpretation Summary Normal LV size. Left ventricular systolic function is normal. The estimated ejection fraction is 60 %. Moderate (2+) eccentric mitral valve insufficiency. Mild to moderate (1-2+) tricuspid valve insufficiency. Mild-Moderate (1-2+) aortic valve insufficiency. 5. GERD, hiatal hernia complicated with Bales's esophagus and esophageal stricture benign status post stent: Patient follows Dr. Carlin. EGD 04/11/2024. Impression: - Benign-appearing esophageal stenosis. Biopsied. 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 - Medium-sized hiatal hernia. - No gross lesions in the duodenal bulb. GE junction biopsy was negative for dysplasia but shows metaplastic changes.. Continue PPI twice daily . 6. Other comorbidities include hypertension, dyslipidemia 7. Carotid stenosis status post left carotid endarterectomy, history of traumatic SDH in 2020 and CVA. Patient had about 1.5 years of smoking in his life. 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 After discussion of benefits/risks procedures involved with full code, DNR CC arrest and DNR CC, the patient opted for full code. Patient does want artificial life support including intubation, tube feed, ventilator and/chest compression, central venous catheter, vasopressor and DC shock if needed Total time spent in [id number] encounter in discussion of advanced directive 17 minutes. Microbiology Past 72 Hours 05/07/24 15:38 Mucosa - Nose SARS-CoV-2, Influenza & RSV (PCR) - Final Laboratory Results 05/07/24 15:10: WBC 14.6 H, RBC 3.58 L, Hgb 11.2 L, Hct 33.5 L, MCV 93.6, MCH 31.3, MCHC 33.4, RDW Std Deviation 45.3 H, RDW Coeff of [place] 13.2, Plt Count 222, MPV 10.9, Immature Gran % (Auto) 0.600, Neut % (Auto) 82.0 H, Lymph % (Auto) 2.9 L, [place] % (Auto) 14.3 H, Eos % (Auto) 0.0, Baso % (Auto) 0.2, Absolute Neuts (auto) 12.0 H, Absolute Lymphs (auto) 0.43 L, Nucleated RBC % 0, Differential Comment SEE COMMENTS, Diff Path Review November foll, Platelet Estimate ADEQUATE, RBC Morphology N CHROM, Anisocytosis RARE, Macrocytosis RARE, Ovalocytes RARE, D- Dimer Quant (PE/DVT) 2.16 H*, Sodium 136, Potassium 3.8, Chloride 99, Carbon Dioxide 28.0, Anion Gap 9, BUN 56 H, Creatinine 2.19 H, Estim Creat Clear Calc 20.67, Est GFR (MDRD) Af Amer 37 L, Est GFR (MDRD) Non-Af 30 L, BUN/Creatinine Ratio 25.6 H, Glucose 173 H, Calcium 9.3, Magnesium Pending, Troponin I High Sens 100 H, B-Natriuretic Peptide 1783.5 H Clinical Impression(s) from Imaging Studies Chest X-Ray 05/07/24 16:20 IMPRESSION: Bibasilar infiltrates and small pleural effusions. Findings consistent with infection. Recommend short-term follow-up to complete resolution. Electronically Signed: Francois Adams MD at 16:34 EDT , Charges/Coding Visit Charges Inpatient E&M: 19814 Init Hosp L3 Procedures Hospitalists Procedures: 37548 Advncd Care Plan 30 Min
[2024-05-07] MEDS: Ceftriaxone 1 GM/50 ML BAG IV (17:43)
--- OUTSIDE RECORDS SUMMARY | 2024-05-07 17:59 | XMS RPT_ITS | CCD ---
Author Organization [facility] PASTE MIXER [facility] Care Team Providers Care Taper Machine Name Role Phone Unavailable Primary Care Provider Marbin DAVIS DO, DR PATEL Primary Care Physician [phone] KAROL ALFORD, DR COTTO Attending Marbin DAVIS [...] media; Translations: [iodinated radiocontrast agents] Substance Allergy [facility] Unclassified (1 source) Iodides Propensity to adverse reactions to drug [facility] (2 sources) Contrast media; Translations: [iodinated radiocontrast agents] Drug allergy [facility] Medications Current Medications Medication Drug Class(es) Dates [...] Reports Accession: Collected Date/Time: Received Date/Time: Pathologist: [id number] 01/03/2024 09:55 EDT 01/04/2024 07:27 EDT ELLIOTT [...] All parts labelled with patient name and [id number] Received in formalin labeled esophageal stricture are multiple wispy gamboa-pink tissue fragments aggregating 0.9 x 0.2 x 0.1 cm. TS-1 Miranda Akbar, Grossing Fish Hatchery Supervisor/ Dr. Shlomo Santos, Pathologist Dictated by Miranda Akbar MICROSCOPIC DESCRIPTION: The microscopic examination is performed, except in the case of Gross Only. Electronically Signed by Pathology Report verified by [facility] ELLIOTT NIEVES Sign out Date: 01/05/2024 10:29 Performing Lab: [facility], [address] [place] [address] Pathology Dept Disclaimer If ancillary studies were utilized, the following Laboratory Developed Test (LDT) disclaimer will apply: Under CLIA requirements, [facility] is qualified to perform high complexity testing. For all ancillary stains, positive and negative controls stain appropriately. Performance characteristics of immunohistochemical and chromogenic in-situ hybridization tests have been determined by [facility]. These tests are used for clinical purposes, They should not be regarded as investigational or for research. Normal [facility] Final Surgical Pathology Rep [facility] 12-29-2023 Final Surgical Pathology Report . 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 Smallest fragments may not survive processing. TS-1 Miranda Akbar, Grossing Fish Hatchery Supervisor/ Dr. Shlomo Santos, Pathologist Dictated by Miranda Akbar MICROSCOPIC DESCRIPTION: The microscopic examination is performed, except in the case of Gross Only. Electronically Signed by Pathology Report verified by [facility] ISELA VILLASENOR MD Sign out Date: 12/29/2023 16:11 Performing Lab: [facility], [address] [place] [address] Pathology Dept Disclaimer If ancillary studies were utilized, the following Laboratory Developed Test (LDT) disclaimer will apply: Under CLIA requirements, [facility] is qualified to perform high complexity testing. For all ancillary stains, positive and negative controls stain appropriately. Performance characteristics of immunohistochemical and chromogenic in-situ hybridization tests have been determined by [facility]. These tests are used for clinical purposes, They should not be regarded as investigational or for research. Normal [facility] CNPKimberli 11-21-2020 CNPN Telephone (INTMWS) IJEOMAFEI TAMAYO ([id number]) 1935 M Date Time Provider Department 11/21/20 [...] of colon polyps [Z86.010] 04/20/2016 Atherosclerosis of [place] artery of both lower *04/21/2017 Secondary hyperparathyroidism (HCC) [N25.81] 11/01/2017 11/15/2018 Disorder of the skin and subcutaneous tissue, u*04/05/2017 04/25/2018 Encounter Status:Closed by LORAINE COREA LPN on 11/21/20 [facility] CNOVon 11-20-2020 CNOV Office Visit (INTMWS ) FEI ROGERS ([id number]) 1935 M Date Time Provider Department 11/20/20 [...] fact that he was just discharged from [facility] after syncope, traumatic subarachnoid hemorrhage, and [...] (Hcc) History of Colon Polyps Atherosclerosis of [place] Artery of Both Lower Extremities With Intermittent [...] Order(s):US LEG VEIN DVT UNL VAS [facility] [[id number]] Order #: [id number] FUTURE Prescriptions as of 11/20/2020 Sig: OMEPRAZOLE 20 MG CAPSULE,LACEY* Take 1 capsule by mouth every* METOPROLOL TARTRATE 25 MG TAB* Take 1 tablet by mouth twice * ATORVASTATIN 20 MG TABLET TAKE 1 TABLET BY MOUTH EVERY * S (more content not included)... Normal [facility] CT HEAD WO CONTRASTOrdered B y: Ady Fang on 11-12-2020 Patient Name: FEI MORALES Computed Tomography ACCESSION EXAM DATE/TIME PROCEDURE ORDERING PROVIDER [id number] 11/12/2020 04:[address] Head or Brain w/o [id number] -VENCZEL, ADY Contrast CPT code 52600 Reason For Exam (CT Head or Brain [...] Time: 11/12/2020 4:36 [facility] Work Phone: [facility] From [facility] - 11/12/2020 4:39 AM EDT Patient Name: FEI ROGERS Computed Tomography ACCESSION EXAM DATE/TIME PROCEDURE ORDERING PROVIDER [id number] 11/12/2020 04:[address] Head or Brain w/o [id number] -VENCZEL, ADY Contrast CPT code 01946 Reason For Exam (CT Head or Brain [...] Tomography ACCESSION EXAM DATE/TIME PROCEDURE ORDERING PROVIDER [id number] 11/12/2020 04:[address] Head or Brain w/o [id number] -VENCZEL, ADY Contrast CPT code 71082 Reason For Exam (CT Head or Brain [...] Transcribed Date and Time: 11/12/2020 4:36 Normal [facility] Vit D 25-OH, Totalon 021 Vit D 25-OH, Total 53 ng/mL Normal 30-100 [facility] Comment on above: Result Comment: Ther apy is based on measurement of Total 25- OHD with the following classification levels: Less than 20 ng/mL: Indicative of Vit D deficiency 20-30 ng/mL: Suggests Vit D insufficiency Optimal: Greater than or equal to 30 ng/mL Test performed by [facility] Comp[employer] Immuno[employer], measuring Total Vitamin D, not individual fractions. Performed By: #### V D25H #### [facility] [address] [place] [address] Vitamin D 25 HydroxyOrdered By: Rafael Longo on 11-12-2020 Vit D, 25-Hydroxy 53 ng/mL 30 - 100 ng/mL [facility] Work Phone: Comment on above: Therapy is based on measurement of Total 25-OHD with the following classification levels: Less than 20 ng/mL: Indicative of Vit D deficiency 20-30 ng/mL: Suggests Vit D insufficiency Optimal: Greater than or equal to 30 ng/mL Test performed by [facility] Comp[employer] Immunoassay, measuring Total Vitamin D, not individual fractions. Test Performed by [facility], [address], [place], [place] [address] [facility] Work Phone: Add On Lab TestOrdered By: Yvette Longo on 11-11-2020 Add On Rejected [facility] Work Phone: Comment on above: already done Test Performed by [facility], [address] [place] [address] [facility] Work Phone: Add on test from HISon 11-11 Add on test from HIS Rejected Normal [facility] Comment on above: Result Comment: alre elly done Performed By: #### A DDON ####[place] [address] [place] [address] Basic Metabolic Panelon - Anion gap [Moles/Vol] 6 mmol/L Normal 3-13 [facility] Comment on above: Performed By: #### P HOS3, TSH5, MG3, FOLT3, BMP3, B12, HEMDF ####[place] [address] [facility] [address], [place] #### VD25H ####[facility] [place] [address] Calcium [Mass/Vol] 9.0 mg/dL Normal 8.4-10.4 [facility] Comment on above: Performed By: #### P HOS3, TSH5, MG3, FOLT3, BMP3, B12, HEMDF ####[address] [place], [place] #### VD25H ####[place] [address] [place] [address] CO2 [Moles/Vol] 26 mmol/L Normal 22-30 [facility] Comment on above: Performed By: #### P HOS3, TSH5, MG3, FOLT3, BMP3, B12, HEMDF ####[place] [address] [address], [place] #### VD25H ####[facility] [place] [address] Glucose [Mass/Vol] 106 mg/dL High 70-100 [facility] Comment on above: Performed By: #### P HOS3, TSH5, MG3, FOLT3, BMP3, B12, HEMDF ####[place] [address] [address], [place] #### VD25H ####[facility] [place] [address] Urea nitrogen [Mass/Vol] 34 mg/dL High 7-20 [facility] Comment on above: Performed By: #### P HOS3, TSH5, MG3, FOLT3, BMP3, B12, HEMDF ####[place] [address] [place], [place] #### VD25H ####[address] [place] [address] Creatinine [Mass/Vol] 1.48 mg/dL High 0.52-1.25 [facility] Comment on above: Performed By: #### P HOS3, TSH5, MG3, FOLT3, BMP3, B12, HEMDF ####[place] [address] [place], [place] #### VD25H ####[address] [place] [address] GFR/1.73 sq M.predicted among blacks MDRD (S/P/Bld) [Vol rate/Area] 49.5 mL/min/{1.73_m2} Abnormal >60 [facility] Comment on above: Performed By: #### P HOS3, TSH5, MG3, FOLT3, BMP3, B12, HEMDF ####[place] [address] [place], [place] #### VD25H ####[address] [address] GFR/1.73 sq M.predicted among non-blacks MDRD (S/P/Bld) [Vol rate/Area] 42.7 mL/min/{1.73_m2} Abnormal >60 [facility] Comment on above: Result Comment: KDIG O [...] HOS3, TSH5, MG3, FOLT3, BMP3, B12, HEMDF ####[place] [address] [place] [address]#### VD25H ####[facility] [place] [address] Chloride [Moles/Vol] 107 mmol/L Normal 98-107 [facility] Comment on above: Performed By: #### P HOS3, TSH5, MG3, FOLT3, BMP3, B12, HEMDF ####[address] #### VD25H ####[facility] [place] [address] Potassium [Moles/Vol] 4.5 mmol/L Normal 3.5-5.1 [facility] Comment on above: Performed By: #### P HOS3, TSH5, MG3, FOLT3, BMP3, B12, HEMDF ####[address] #### VD25H ####[facility] [place] [address] Sodium [Moles/Vol] 139 mmol/L Normal 135-145 [facility] Comment on above: Performed By: #### P HOS3, TSH5, MG3, FOLT3, BMP3, B12, HEMDF ####[place] [address] [place], [place] #### VD25H ####[facility] [place] [address] Basic Metabolic PanelOrdered By: Cedric Jane on 11-11-2020 Anion gap [Moles/Vol] 6 mmol/L 3 - 13 mmol/L [facility] Work Phone: Calcium [Mass/Vol] 9.0 mg/dL 8.4 - 10. 4 mg/dL [facility] Work Phone: Chloride [Moles/Vol] 107 mmol/L 98 - 10 7 mmol/L [facility] Work Phone: CO2 [Moles/Vol] 26 mmol/L 22 - 30 mmol/L [facility] Work Phone: Creatinine [Mass/Vol] 1.48 mg/dL High 0.52 - 1.25 mg/dL [facility] Work Phone: EGFR IF NonAfrican Finnish 42.7 mL/min Abnormal >60 [facility] Work Phone: Comment on above: KDIGO guidelines [...] 106 mg/dL High 70 - 100 mg/dL [facility] Work Phone: Potassium [Moles/Vol] 4.5 mmol/L 3.5 - 5.1 mmol/L [facility] Work Phone: Sodium [Moles/Vol] 139 mmol/L 135 - 145 mmol/L [facility] Work Phone: Urea nitrogen (BldV) [Mass/Vol] 34 mg/dL High 7 - 20 mg/dL [facility] Work Phone: [phone] CBC auto differentialOrdered By: Cedric Jane on 11-11-2020 Absolute Baso # 0.1 10*3/uL 0.0 - 0.2 10*3/uL [facility] Work Phone: Absolute Neut # 7.5 10*3/uL High 1.8 - 7.0 10*3/uL [facility] Work Phone: Hemoglobin.gastrointe stinal spec 1 Ql (Stl) 12.4 g/dL Low 13.0 - 18.0 g/dL [facility] Work Phone: MCHC (RBC) [Mass/Vol] 32.4 % 32.0 - 36.0 % [facility] Work Phone: Platelet distribution width (Bld) [Ratio] 13.2 % 11.5 - 14.5 % [facility] Work Phone: CT Head or Brain w/o Contras ton 11-11-2020 CT Head or Brain w/o Contrast Patient Name: FEI ROGERS Computed Tomography ACCESSION EXAM DATE/TIME PROCEDURE ORDERING PROVIDER [id number] 11/11/2020 04:[address] Head or Brain w/o MD AUGUSTA, ADY Contrast CPT code 66123 Reason For Exam (CT Head or Brain [...] Computed Tomography Report Report Dictated on Workstation: [facility] Final Dictated: 11/11/2020 5:41 am Dictating Physician: MD CARTER JEFFREY Signed Date and Time: 11/11/2020 5:49 am Signed by: MD CARTER JEFFREY Transcribed Date and Time: 11/11/2020 5:41 Normal [facility] CT head without contrastOrde red By: Ady Deras on 11-11-2020 Patient Name: FEI MORALES Computed Tomography ACCESSION EXAM DATE/TIME PROCEDURE ORDERING PROVIDER [id number] 11/11/2020 04:[address] Head or Brain w/o MD DERAS KEVIN Contrast CPT code 10608 Reason For Exam (CT Head or Brain [...] Computed Tomography Report Report Dictated on Workstation: [facility] --- Final --- Dictated: 11/11/2020 5:41 am Dictating Physician: MD CARTER JEFFREY Signed Date and Time: 11/11/2020 5:49 am Signed by: MD CARTER JEFFREY Transcribed Date and Time: 11/11/2020 5:41 [facility] Work Phone: Juan, [facility] Incoming Radiology Results From [facility] - 11/11/2020 5:50 AM EDT Patient Name: FEI ROGERS Computed Tomography ACCESSION EXAM DATE/TIME PROCEDURE ORDERING PROVIDER [id number] 11/11/2020 04:[address] Head or Brain w/o MD AUGUSTA, ADY Contrast CPT code 91379 Reason For Exam (CT Head or Brain [...] Computed Tomography Report Report Dictated on Workstation: [facility] --- Final --- Dictated: 11/11/2020 5:41 am Dictating Physician: MD CARTER JEFFREY Signed Date and Time: 11/11/2020 5:49 am Signed by: MD CARTER JEFFREY Transcribed Date and Time: 11/11/2020 5:41 [facility] Work Phone: Complete Urinalysison 2020 Appearance (U) Clear Normal Clear [facility] Comment on above: Result Comment: . Performed By: #### C UA2 ####[facility] [employer] [id number] [place], [place] Bacteria Few Abnormal Negative [facility] Comment on above: Result Comment: . Performed By: #### C UA2 ####[facility] [employer] [id number] [place], [place] Bilirubin,Urine Negative Normal Negative [facility] Comment on above: Result Comment: . Performed By: #### C UA2 ####[facility] [employer] [id number] [place], [place] Cast, Hyaline 0 - 2 Abnormal Negative [facility] Comment on above: Result Comment: . Performed By: #### C UA2 ####[facility] [employer] [id number] [place], [place] Color (U) Light-Yellow Normal Lt. Yellow [facility] Comment on above: Result Comment: . Performed By: #### C UA2 ####[facility] [employer] [id number] [place], [place] Glucose Ql (U) Normal Normal Normal (<70) [facility] Comment on above: Result Comment: . Performed By: #### C UA2 ####[facility] [employer] [id number] [place], [place] Ketone,Urine Negative Normal Negative [facility] Comment on above: Result Comment: . Performed By: #### C UA2 ####[facility] [employer] [id number] [place], [place] Leukocytes,Urine Negative Normal Negative [facility] Comment on above: Result Comment: . Performed By: #### C UA2 ####[facility] [employer] [id number] [place], [place] Mucous Threads Few Normal Negative [facility] Comment on above: Result Comment: . Performed By: #### C UA2 ####[place] [address] [place], [place] Nitrites,Urine Negative Normal Negative [facility] Comment on above: Result Comment: . Performed By: #### C UA2 ####[place] [address] [place], [place] Occult Blood,Urine Negative Normal Negative [facility] Comment on above: Result Comment: . Performed By: #### C UA2 ####[address] pH,Urine 5.0 Normal 5.0-8.0 [facility] Comment on above: Result Comment: . Performed By: #### C UA2 ####[address] Protein (U) [Mass/Vol] 10 mg/dL Abnormal Negative [facility] Comment on above: Result Comment: . Performed By: #### C UA2 ####[address] RBC LM.HPF (Urine sed) [#/Area] Negative Normal 0-2 [facility] Comment on above: Result Comment: . Performed By: #### C UA2 ####[address] Specific [place],Urine 1.013 Normal 1.005 - 1.030 [facility] Comment on above: Result Comment: . Performed By: #### C UA2 ####[address] Squamous Epithelial Negative Normal 3-5 [facility] Comment on above: Result Comment: . Performed By: #### C UA2 ####[address] Urobilinogen,Urine Normal Normal Normal (0-1) [facility] Comment on above: Result Comment: . Performed By: #### C UA2 ####[address] WBC, Urine 0 - 2 Normal 0-5 [facility] [employer] [facility] Comment on above: Result Comment: . Performed By: #### C UA2 ####[facility] [address] [place] [address] ECHO Complete 2D W Doppler W ColorOrdered By: Ady Deras on 11-11-2020 TRANSTHORACIC ECHOCA RDIOGRAM PATIENT: Fei Rogers STUDY DATE: 11/11/2020 : 1935 AGE: 85 HT/WT: 167.6 cm (66 61.2 kg (134.7 in) lb) GENDER: M BP: 145 / 76 LOCATION: [facility] PATIENT Inpatient main STATUS: *ORDERING PHYSICIAN: * Ady DerasREADING PHYSICIAN: * Alexandro, *CORPORATE PARALEGAL: * Tessa Victoria Gabriela CCT INDICATIONS: Syncopal [...] 47.3 ml/m^2 ---- (more content not included)... [facility] Work Phone: Juan, [employer] Incoming Cardiology Results From [facility] - 11/11/2020 12:42 PM EDT TRANSTHORACIC ECHOCARDIOGRAM PATIENT: Fei Rogers STUDY DATE: 11/11/2020 : 1935 AGE: 85 HT/WT: 167.6 cm (66 61.2 kg (134.7 in) lb) GENDER: M BP: 145 / 76 LOCATION: [facility] PATIENT Inpatient main STATUS: *ORDERING PHYSICIAN: * Ady DerasREADING PHYSICIAN: * Alexandro, *CORPORATE PARALEGAL: * Tessa Victoria, Patti CCT INDICATIONS: Syncopal [...] Ultrasound ACCESSION EXAM DATE/TIME PROCEDURE ORDERING PROVIDER [id number] 11/11/2020 11:25 EDT Echo Complete w/wo MD DERAS KEVIN Contrast Reason For Exam (Echo Complete w/wo Contrast) syncopal fall. history of 5 vessel cabg Report TRANSTHORACIC ECHOCARDIOGRAM PATIENT: Fei Rogers STUDY DATE: 11/11/2020 : 1935 AGE: 85 HT/WT: 167.6 cm (66 61.2 kg (134.7 in) lb) GENDER: M BP: 145 / 76 LOCATION: [facility] PATIENT Inpatient main STATUS: *ORDERING PHYSICIAN: * Ady Deras *READING PHYSICIAN: * Alexandro, *CORPORATE PARALEGAL: * Tessa Victoria Gabriela CCT INDICATIONS: Syncopal [...] Ultrasound Rep (more content not included)... Normal [facility] Folateon 11-11-2020 Folate 13.5 ng/mL Normal 2.8-20.0 [facility] Comment on above: Performed By: #### P HOS3, TSH5, MG3, FOLT3, BMP3, B12, HEMDF ####[facility] [employer] [id number] [place], [place] #### VD25H ####[facility] [place] [address] FolateOrdered By: Cedric peraza on 11-11-2020 Folate 13.5 ng/mL 2.8 - 20.0 ng/mL [facility] Work Phone: Hemogram w/ Autodiffon 11-11 Abs Baso Cnt 0.1 10*3/uL Normal 0.0-0.2 [facility] Comment on above: Performed By: #### P HOS3, TSH5, MG3, FOLT3, BMP3, B12, HEMDF ####[facility] [employer] [address] #### VD25H ####[facility] [employer] [id number] [facility] [place] [address] Abs Neutrophile Cnt 7.5 10*3/uL High 1.8-7.0 [facility] Comment on above: Performed By: #### P HOS3, TSH5, MG3, FOLT3, BMP3, B12, HEMDF ####[facility] [employer] [address] #### VD25H ####[facility] [employer] [id number] [place] [address] Erythrocyte distribution width (RBC) [Ratio] 13.2 % Normal 11.5-14.5 [facility] Comment on above: Performed By: #### P HOS3, TSH5, MG3, FOLT3, BMP3, B12, HEMDF ####[facility] [employer] [address] #### VD25H ####[place] [address] [place] [address] Hemoglobin (Bld) [Mass/Vol] 12.4 g/dL Low 13.0-18.0 [facility] Comment on above: Performed By: #### P HOS3, TSH5, MG3, FOLT3, BMP3, B12, HEMDF ####[address] #### VD25H ####[address] [place] [address] MCHC 32.4 % Normal 32.0-36.0 [facility] Comment on above: Performed By: #### P HOS3, TSH5, MG3, FOLT3, BMP3, B12, HEMDF ####[address] #### VD25H ####[address] [place] [address] Hemogram w/ AutodiffOrdered By: Cedric Jane on 11-11-2020 Basophils/100 WBC (Bld) 0.8 % Normal 0.0-2.0 [facility] Work Phone: Comment on above: Performed By: #### P HOS3, TSH5, MG3, FOLT3, BMP3, B12, HEMDF ####[address] #### VD25H ####[address] [place] [address] Eosinophils (Bld) [#/Vol] 0.1 10*3/uL Normal 0.0-0.5 [facility] Work Phone: Comment on above: Performed By: #### P HOS3, TSH5, MG3, FOLT3, BMP3, B12, HEMDF ####[address] #### VD25H ####[address] [place] [address] Eosinophils/100 WBC (Bld) 1.0 % Normal 1.0-6.0 [facility] Work Phone: [phone] Comment on above: Performed By: #### P HOS3, TSH5, MG3, FOLT3, BMP3, B12, HEMDF ####[employer] [place], [place] #### VD25H ####[employer] [place] [address] Granulocytes/100 WBC (Bld) 76.8 % Normal 40.0-80.0 [facility] Work Phone: 1 Comment on above: Performed By: #### P HOS3, TSH5, MG3, FOLT3, BMP3, B12, HEMDF ####[employer] [place] [address] #### VD25H ####[employer] [place] [address] [place] [address] Hematocrit (Bld) [Volume fraction] 38.1 % Low 40.0-52.0 [facility] Work Phone: [phone] Comment on above: Performed By: #### P HOS3, TSH5, MG3, FOLT3, BMP3, B12, HEMDF ####[employer] [place] [address] #### VD25H ####[employer] [place] [address] [place] [address] Lymphocytes (Bld) [#/Vol] 1.1 10*3/uL Normal 1.0-4.3 [facility] Work Phone: Comment on above: Performed By: #### P HOS3, TSH5, MG3, FOLT3, BMP3, B12, HEMDF ####[employer] [place] [address] #### VD25H ####[employer] [place] [address] [place] [address] Lymphocytes/100 WBC (Bld) 10.8 % Low 20.0-40.0 [facility] Work Phone: [phone] Comment on above: Performed By: #### P HOS3, TSH5, MG3, FOLT3, BMP3, B12, HEMDF ####[facility] [address] #### VD25H ####[facility] [employer] [address] [place] [address] MCH (RBC) [Entitic mass] 30.7 pg Normal 26.0-34.0 [facility] Work Phone: Comment on above: Performed By: #### P HOS3, TSH5, MG3, FOLT3, BMP3, B12, HEMDF ####[facility] [address] #### VD25H ####[facility] [employer] [address] [place] [address] MCV (RBC) [Entitic vol] 94.5 fL Normal 80.0-98.0 [facility] Work Phone: [phone] Comment on above: Performed By: #### P HOS3, TSH5, MG3, FOLT3, BMP3, B12, HEMDF ####[facility] [employer] [address] #### VD25H ####[facility] [employer] [address] [place] [address] Monocytes (Bld) [#/Vol] 1.0 10*3/uL High 0.0-0.8 [facility] Work Phone: [phone] Comment on above: Performed By: #### P HOS3, TSH5, MG3, FOLT3, BMP3, B12, HEMDF ####[employer] [address] #### VD25H ####[facility] [employer] [address] [place] [address] Monocytes/100 WBC (Bld) 10.6 % High 2.0-10.0 [facility] Work Phone: Comment on above: Performed By: #### P HOS3, TSH5, MG3, FOLT3, BMP3, B12, HEMDF ####[employer] [address] #### VD25H ####[employer] [address] [place] [address] Platelet mean volume (Bld) [Entitic vol] 8.6 fL Normal 7.4-10.4 [facility] Work Phone: Comment on above: Performed By: #### P HOS3, TSH5, MG3, FOLT3, BMP3, B12, HEMDF ####[employer] [place] [address] #### VD25H ####[employer] [address] [place] [address] Platelets (Bld) [#/Vol] 238 10*3/uL Normal 140-440 [facility] Work Phone: [phone] Comment on above: Performed By: #### P HOS3, TSH5, MG3, FOLT3, BMP3, B12, HEMDF ####[employer] [place] [address] #### VD25H ####[employer] [address] [place] [address] RBC (Bld) [#/Vol] 4.03 10*6/uL Low 4.40-5.90 [facility] Work Phone: [phone] Comment on above: Performed By: #### P HOS3, TSH5, MG3, FOLT3, BMP3, B12, HEMDF ####[employer] [place] [address] #### VD25H ####[employer] [address] [place] [address] WBC (Bld) [#/Vol] 9.7 10*3/uL Normal 3.6-10.7 [facility] Work Phone: Comment on above: Performed By: #### P HOS3, TSH5, MG3, FOLT3, BMP3, B12, HEMDF ####[employer] [place] [address] #### VD25H ####[employer] [address] [place] [address] MRA HEAD WO CONTRASTOrdered By: Ady Fang on 11-11-2020 Patient Name: FEI ROGERS [facility] ACCESSION EXAM DATE/TIME PROCEDURE ORDERING PROVIDER [id number] 11/11/2020 18:35 EDT MRA Head w/o Contrast [id number] ADY FLOR CPT code 93279 Reason For Exam (MRA Head w/o Contrast) [...] evaluated proximal internal carotid artery stenosis. 3-D rcjx-rq-ckwbjt MRA of the [place] of [place] was obtained without contrast. FINDINGS: [...] patent. There is a right-sided circulation. Bilateral supervisor conditioning yard are patent. At the anterior circulation, bilateral [...] narrowing of the major arteries of the [place] or posterior circulation. Report Dictated on --- Final --- Dictated: 11/11/2020 7:42 pm Dictating Physician: MD LANDURM NEIL Signed Date and Time: 11/11/2020 7:58 pm Signed by: MD LANDRUM NEIL Transcribed Date and Time: 11/11/2020 7:42 [facility] Work Phone: Juan, [facility] Incoming Radiology Results From [facility] - 11/11/2020 7:59 PM EDT Patient Name: FEI ROGERS [facility] ACCESSION EXAM DATE/TIME PROCEDURE ORDERING PROVIDER [id number] 11/11/2020 18:35 EDT MRA Head w/o Contrast [id number] -ADY FANG CPT code 09619 Reason For Exam (MRA Head w/o Contrast) [...] evaluated proximal internal carotid artery stenosis. 3-D tmsm-np-bqkxuv MRA of the [place] was obtained without contrast. FINDINGS: [...] patent. There is a right-sided circulation. Bilateral supervisor conditioning yard are patent. At the anterior circulation, bilateral [...] narrowing of the major arteries of the [place] or posterior circulation. Report Dictated on --- Final --- Dictated: 11/11/2020 7:42 pm Dictating Physician: MD LANDRUM NEIL Signed Date and Time: 11/11/2020 7:58 pm Signed by: MD LANDRUM NEIL Transcribed Date and Time: 11/11/2020 7:42 [facility] Work Phone: MRA Head w/o Contraston 10-18 MRA Head w/o Contrast [id number] ACCESSION EXAM DATE/TIME PROCEDURE ORDERING PROVIDER [id number] 11/11/2020 18:35 EDT MRA Head w/o Contrast [id number] ADY FLOR CPT code 75362 Reason For Exam (MRA Head w/o Contrast) [...] evaluated proximal internal carotid artery stenosis. 3-D lrla-mc-jvxcko MRA of the [place] was obtained without contrast. FINDINGS: [...] patent. There is a right-sided circulation. Bilateral supervisor conditioning yard are patent. At the anterior circulation, bilateral [...] narrowing of the major arteries of the [place] or posterior circulation. Report Dictated on Final Dictated: 11/11/2020 7:42 pm Dictating Physician: MD LANDRUM NEIL Signed Date and Time: 11/11/2020 7:58 pm Signed by: MD LANDRUM NEIL Transcribed Date and Time: 11/11/2020 7:42 Normal [facility] MRA NECK WO CONTRASTOrdered By: Ady Fang on 11-11-2020 [id number] ACCESSION EXAM DATE/TIME PROCEDURE ORDERING PROVIDER [id number] 11/11/2020 18:35 EDT MRA Neck w/o Contrast 165485 ADY FLOR CPT code 72206 Reason For Exam (MRA Neck w/o Contrast) [...] evaluated proximal internal carotid artery stenosis. 3-D zgvn-tl-tyrpxz MRA of the [place] was obtained without contrast. FINDINGS: [...] patent. There is a right-sided circulation. Bilateral supervisor conditioning yard are patent. At the anterior circulation, bilateral [...] narrowing of the major arteries of the [place] or posterior circulation. Report Dictated on --- Final --- Dictated: 11/11/2020 7:42 pm Dictating Physician: MD LANDRUM NEIL Signed Date and Time: 11/11/2020 7:58 pm Signed by: MD LANDRUM NEIL Transcribed Date and Time: 11/11/2020 7:42 [facility] Work Phone: Juan, [facility] In[facility] Radiology Results From [facility] - 11/11/2020 7:59 PM EDT Patient Name: FEI ROGERS [facility] ACCESSION EXAM DATE/TIME PROCEDURE ORDERING PROVIDER [id number] 11/11/2020 18:35 EDT MRA Neck w/o Contrast 019380 ADY FLOR CPT code 46004 Reason For Exam (MRA Neck w/o Contrast) [...] evaluated proximal internal carotid artery stenosis. 3-D avva-xe-dxjiwr MRA of the [place] was obtained without contrast. FINDINGS: [...] patent. There is a right-sided circulation. Bilateral supervisor conditioning yard are patent. At the anterior circulation, bilateral [...] narrowing of the major arteries of the [place] or posterior circulation. Report Dictated on --- Final --- Dictated: 11/11/2020 7:42 pm Dictating Physician: MD LANDRUM NEIL Signed Date and Time: 11/11/2020 7:58 pm Signed by: MD LANDRUM NEIL Transcribed Date and Time: 11/11/2020 7:42 [facility] Work Phone: MRA Neck w/o Contraston 04- MRA Neck w/o Contrast Patient Name: FEI HIDALGO [facility] ACCESSION EXAM DATE/TIME PROCEDURE ORDERING PROVIDER [id number] 11/11/2020 18:35 EDT MRA Neck w/o Contrast 112430 ADY FLOR CPT code 78567 Reason For Exam (MRA Neck w/o Contrast) [...] evaluated proximal internal carotid artery stenosis. 3-D kzgy-ch-amnrxx MRA of the [place] was obtained without contrast. FINDINGS: [...] patent. There is a right-sided circulation. Bilateral supervisor conditioning yard are patent. At the anterior circulation, bilateral [...] narrowing of the major arteries of the [place] or posterior circulation. Report Dictated on Final Dictated: 11/11/2020 7:42 pm Dictating Physician: MD LANDRUM NEIL Signed Date and Time: 11/11/2020 7:58 pm Signed by: MD LANDRUM NEIL Transcribed Date and Time: 11/11/2020 7:42 Normal [facility] MRI BRAIN WO CONTRASTOrdered By: Ady Fang on 11-11-2020 Patient Name: FEI ROGERS [facility] ACCESSION EXAM DATE/TIME PROCEDURE ORDERING PROVIDER [id number] 11/11/2020 18:35 EDT MRI Brain w/o Contrast [id number] ADY FLOR CPT code 41319 Reason For Exam (MRI Brain w/o Contrast) [...] evaluated proximal internal carotid artery stenosis. 3-D sajy-vh-qvhhnu MRA of the [place] was obtained without contrast. FINDINGS: [...] patent. There is a right-sided circulation. Bilateral supervisor conditioning yard are patent. At the anterior circulation, bilateral [...] narrowing of the major arteries of the [place] or posterior circulation. Report Dictated on --- Final --- Dictated: 11/11/2020 7:42 pm Dictating Physician: MD LANDRUM NEIL Signed Date and Time: 11/11/2020 7:58 pm Signed by: MD LANDRUM NEIL Transcribed Date and Time: 11/11/2020 7:42 [facility] Work Phone: Juan, [facility] Incoming Radiology Results From [facility] - 11/11/2020 7:59 PM EDT [facility]: [id number] Resonance Imaging ACCESSION EXAM DATE/TIME PROCEDURE ORDERING PROVIDER [id number] 11/11/2020 18:35 EDT MRI Brain w/o Contrast 616743 ADY FLOR CPT code 13744 Reason For Exam (MRI Brain w/o Contrast) [...] evaluated proximal internal carotid artery stenosis. 3-D ihlk-vd-ikxcbh MRA of the [place] was obtained without contrast. FINDINGS: [...] patent. There is a right-sided circulation. Bilateral supervisor conditioning yard are patent. At the anterior circulation, bilateral [...] narrowing of the major arteries of the [place] or posterior circulation. Report Dictated on --- Final --- Dictated: 11/11/2020 7:42 pm Dictating Physician: MD LANDRUM NEIL Signed Date and Time: 11/11/2020 7:58 pm Signed by: MD LANDRUM NEIL Transcribed Date and Time: 11/11/2020 7:42 [facility] Work Phone: MRI Brain w/o Contraston MRI Brain w/o Contrast Patient Name: FEI ROGERS [facility]#: [id number] Magnetic Resonance Imaging ACCESSION EXAM DATE/TIME PROCEDURE ORDERING PROVIDER [id number] 11/11/2020 18:35 EDT MRI Brain w/o Contrast 785027 ADY FLOR CPT code 08300 Reason For Exam (MRI Brain w/o Contrast) [...] evaluated proximal internal carotid artery stenosis. 3-D ojcm-yy-njqtat MRA of the [place] was obtained without contrast. FINDINGS: [...] patent. There is a right-sided circulation. Bilateral supervisor conditioning yard are patent. At the anterior circulation, bilateral [...] narrowing of the major arteries of the [place] or posterior circulation. Report Dictated on Final Dictated: 11/11/2020 7:42 pm Dictating Physician: MD LANDRUM NEIL Signed Date and Time: 11/11/2020 7:58 pm Signed by: MD LANDRUM NEIL Transcribed Date and Time: 11/11/2020 7:42 Normal [facility] Magnesiumon 11-11-2020 Magnesium [Mass/Vol] 1.9 mg/dL Normal 1.6-2.3 [facility] Comment on above: Performed By: #### P HOS3, TSH5, MG3, FOLT3, BMP3, B12, HEMDF ####[facility] [employer] [address] [place] [address]#### VD25H ####[facility] [employer] [address] [place] [address] MagnesiumOrdered By: Cedric Jane on 11-11-2020 Magnesium [Mass/Vol] 1.9 mg/dL 1.6 - 2 .3 mg/dL [facility] Work Phone: [phone] Panel InformationOrdered By: Cedric Jane on 11-11-2020 Test Performed by [facility], [address] [place] [address] [facility] Work Phone: [phone] Interpretation and review of laboratory results Abnormal [facility] Work Phone: Test Performed by [facility], [address] [place] [address] [facility] Work Phone: [phone] Phosphoruson 11-11-2020 Phosphate [Mass/Vol] 3.8 mg/dL Normal 2.5-4.5 [facility] [employer] Comment on above: Performed By: #### P HOS3, TSH5, MG3, FOLT3, BMP3, B12, HEMDF ####[facility] [employer] [address] [place] [address]#### VD25H ####[facility] [employer] [address] [place] [address] PhosphorusOrdered By: Cedric Jane on 11-11-2020 Phosphate [Mass/Vol] 3.8 mg/dL 2.5 - 4 .5 mg/dL [facility] Work Phone: [phone] TSH without ReflexOrdered By : Cedric Jane on 11-11-2020 TSH Qn 1.216 u[IU]/mL 0.465 - 4.680 u[IU]/mL [facility] Work Phone: [phone] Test Performed by [facility], [address] [place] [address] [facility] Work Phone: [phone] Thyroid Stim. Hormoneon 10-18 Thyroid Stim. Hormone 1.216 u[IU]/mL Normal 0.46 5-4.68 0 [facility] [employer] Comment on above: Performed By: #### P HOS3, TSH5, MG3, FOLT3, BMP3, B12, HEMDF ####[employer] [address] [place] [address]#### VD25H ####[employer] [address] [place] [address] UrinalysisOrdered By: Amy Ortez on 11-11-2020 Appearance (U) Clear Clear NA [facility] Work Phone: [phone] Comment on above: . Bacteria, UA Few Abnormal Negative /[HPF] [facility] Work Phone: [phone] Comment on above: . Bilirubin Urine Negative Negative mg/dL [facility] Work Phone: [phone] Comment on above: . Color (U) Light-Yellow Lt. Yellow NA [facility] Work Phone: [phone] Comment on above: . Glucose, Ur Normal Normal (<70) mg/dL [facility] Work Phone: [phone] Comment on above: . Hyaline Casts, UA 0-2 Abnormal Negative /[LPF] [facility] Work Phone: [phone] Comment on above: . Interpretation and review of laboratory results Abnormal [facility] Work Phone: [phone]- Ketones Ql (U) Negative Negative mg/dL [facility] Work Phone: [phone]- Comment on above: . LEUKOCYTES, UA Negative Negative [place]il[place]/uL [facility] Work Phone: [phone] Comment on above: . Mucous Threads Few Negative /[LPF] [facility] Work Phone: [phone]- Comment on above: . Nitrite, Urine Negative Negative NA [facility] Work Phone: [phone]- Comment on above: . Occult Blood,Urine Negative Negative mg/dL [facility] Work Phone: [phone]- Comment on above: . pH (U) 5.0 [pH] [facility] Work Phone: [phone] Comment on above: . Protein (U) [Mass/Vol] 10 mg/dL Abnormal Negative [facility] Work Phone: [phone] Comment on above: . RBC (U) [#/Vol] Negative 0 - 2 /[HPF] [facility] Work Phone: [phone] Comment on above: . Specific [place], Urine 1.013 [facility] Work Phone: [phone] Comment on above: . Squam Epithel, UA Negative 3 - 5 /[HPF] [facility] Work Phone: [phone] Comment on above: . Urobilinogen, Urine Normal Normal (0-1) mg/dL [facility] Work Phone: Comment on above: . WBC, UA 0-2 0 - 5 /[HPF] [facility] Work Phone: [phone] Comment on above: . Test Performed by [facility], [address] [place] [address] [facility] Work Phone: VITAMIN D 25 HYDROXYOrdered By: Cedric Jane on 11-11-2020 Vit D, 25-Hydroxy 56 ng/mL 30 - 100 ng/mL [facility] Work Phone: Comment on above: Therapy is based on measurement of Total 25-OHD with the following classification levels: Less than 20 ng/mL: Indicative of Vit D deficiency 20-30 ng/mL: Suggests Vit D insufficiency Optimal: Greater than or equal to 30 ng/mL Test performed by [employer] Immunoassay, measuring Total Vitamin D, not individual fractions. Test Performed by [facility], [address] [place], [place] [address] [facility] Work Phone: Vit D 25-OH, Totalon 021 Vit D 25-OH, Total 56 ng/mL Normal 30-100 [facility] [employer] [facility] Comment on above: Result Comment: Ther apy is based on measurement of Total 25- OHD with the following classification levels: Less than 20 ng/mL: Indicative of Vit D deficiency 20-30 ng/mL: Suggests Vit D insufficiency Optimal: Greater than or equal to 30 ng/mL Test performed by [employer] Competitive Immunoassay, measuring Total Vitamin D, not individual fractions. Performed By: #### P HOS3, TSH5, MG3, FOLT3, BMP3, B12, HEMDF ####[facility] [place], [place] #### VD25H ####[facility] [place] [address] Vitamin B12on 11-11-2020 Cobalamin (Vitamin B12) [Mass/Vol] 356 pg/mL Normal 239-931 [facility] Comment on above: Performed By: #### P HOS3, TSH5, MG3, FOLT3, BMP3, B12, HEMDF ####[facility] [employer] [address] [place] [address]#### VD25H ####[facility] [employer] [address] [place] [facility] [place] [address] Vitamin R23Xltntej By: Vargas Jane on 11-11-2020 Cobalamin (Vitamin B12) [Mass/Vol] 356 pg/mL 239 - 931 pg/mL [facility] Work Phone: Basic Metabolic Panelon 10-18 Calcium [Mass/Vol] 9.1 mg/dL Normal 8.4-10.4 [facility] [employer] [facility] Comment on above: Performed By: #### P T/AP, HEMOG, BMP3M #### [facility] [employer] [facility] [address] [place] [address] GFR/1.73 sq M.predicted among non-blacks MDRD (S/P/Bld) [Vol rate/Area] 42.4 mL/min/{1.73_m2} Abnormal >60 [facility] Comment on above: Result Comment: KDIG O [...] By: #### P T/AP, HEMOG, BMP3M #### [place] [address] [address] [place], [place] Urea nitrogen [Mass/Vol] 40 mg/dL High 7-20 [facility] Comment on above: Performed By: #### P T/AP, HEMOG, BMP3M #### [place] [address] [place], [place] Chloride [Moles/Vol] 105 mmol/L Normal 98-107 [facility] Comment on above: Performed By: #### P T/AP, HEMOG, BMP3M #### [place] [address] [address] [place], [place] Potassium [Moles/Vol] 4.4 mmol/L Normal 3.5-5.1 [facility] Comment on above: Performed By: #### P T/AP, HEMOG, BMP3M #### [place] [address] [address] [place], [place] Sodium [Moles/Vol] 139 mmol/L Normal 135-145 [facility] Comment on above: Performed By: #### P T/AP, HEMOG, BMP3M #### [place] [address] [address] [place], [place] Basic Metabolic PanelOrdered By: Ady Deras on 11-10-2020 Anion gap [Moles/Vol] 11 mmol/L Normal 3-13 [facility] Work Phone: Comment on above: Performed By: #### P T/AP, HEMOG, BMP3M #### [place] [address] [address] [place], [place] CO2 [Moles/Vol] 23 mmol/L Normal 22-30 [facility] Work Phone: Comment on above: Performed By: #### P T/AP, HEMOG, BMP3M #### [place] [address] [address] [place], [place] Creatinine [Mass/Vol] 1.49 mg/dL High 0.52-1.25 [facility] Work Phone: Comment on above: Performed By: #### P T/AP, HEMOG, BMP3M #### [facility] [employer] [facility] [address] [place], [place] GFR/1.73 sq M.predicted among blacks MDRD (S/P/Bld) [Vol rate/Area] 49.1 mL/min/{1.73_m2} Abnormal >60 [facility] Work Phone: Comment on above: Performed By: #### P T/AP, HEMOG, BMP3M #### [facility] [employer] [facility] [address] [place], [place] Glucose [Mass/Vol] 128 mg/dL High 70-100 [facility] Work Phone: Comment on above: Performed By: #### P T/AP, HEMOG, BMP3M #### [employer] [facility] [place] [address] Basic Metabolic Panel w/ Ref wraren to MGOrdered By: Ady Deras on 11-10-2020 Calcium [Mass/Vol] 9.1 mg/dL 8.4 - 10. 4 mg/dL [facility] Work Phone: Chloride [Moles/Vol] 105 mmol/L 98 - 10 7 mmol/L [facility] Work Phone: EGFR IF NonAfrican Finnish 42.4 mL/min Abnormal >60 [facility] Work Phone: [...] Interpretation and review of laboratory results Abnormal [facility] Work Phone: Potassium [Moles/Vol] 4.4 mmol/L 3.5 - 5.1 mmol/L [facility] Work Phone: Sodium [Moles/Vol] 139 mmol/L 135 - 145 mmol/L [facility] Work Phone: Urea nitrogen (BldV) [Mass/Vol] 40 mg/dL High 7 - 20 mg/dL [facility] Work Phone: CBCOrdered By: Ady Deras on 11-10-2020 Hematocrit (Bld) [Volume fraction] 37.2 % Low 40.0 - 52.0 % [facility] Work Phone: Hemoglobin.gastrointe stinal spec 1 Ql (Stl) 12.1 g/dL Low 13.0 - 18.0 g/dL [facility] Work Phone: Interpretation and review of laboratory results Abnormal [facility] Work Phone: MCH (RBC) [Entitic mass] 30.7 pg 26.0 - 34.0 pg [facility] Work Phone: MCHC (RBC) [Mass/Vol] 32.5 % 32.0 - 36.0 % [facility] Work Phone: MCV (RBC) [Entitic vol] 94.4 fL 80.0 - 98.0 fL [facility] Work Phone: Platelet distribution width (Bld) [Ratio] 13.0 % 11.5 - 14.5 % [facility] Work Phone: Platelet mean volume (Bld) [Entitic vol] 8.3 fL 7.4 - 10.4 fL [facility] Work Phone: Platelets (Bld) [#/Vol] 243 10*3/uL 140 - 440 10*3/uL [facility] Work Phone: ) RBC (Bld) [#/Vol] 3.94 10*6/uL Low 4.40 - 5.90 10*6/uL [facility] Work Phone: WBC (Bld) [#/Vol] 16.0 10*3/uL High 3.6 - 10.7 10*3/uL [facility] Work Phone: Test Performed by [facility], [address] [place] [address] [facility] Work Phone: Hemogramon 11-10-2020 Erythrocyte distribution width (RBC) [Ratio] 13.0 % Normal 11.5-14.5 [facility] Comment on above: Performed By: #### P T/AP, HEMOG, BMP3M #### [address] Hematocrit (Bld) [Volume fraction] 37.2 % Low 40.0-52.0 [facility] Comment on above: Performed By: #### P T/AP, HEMOG, BMP3M #### [address] Hemoglobin (Bld) [Mass/Vol] 12.1 g/dL Low 13.0-18.0 [facility] Comment on above: Performed By: #### P T/AP, HEMOG, BMP3M #### [address] MCH (RBC) [Entitic mass] 30.7 pg Normal 26.0-34.0 [facility] Comment on above: Performed By: #### P T/AP, HEMOG, BMP3M #### [address] MCHC 32.5 % Normal 32.0-36.0 [facility] Comment on above: Performed By: #### P T/AP, HEMOG, BMP3M #### [address] MCV (RBC) [Entitic vol] 94.4 fL Normal 80.0-98.0 [facility] Comment on above: Performed By: #### P T/AP, HEMOG, BMP3M #### [address] Platelet mean volume (Bld) [Entitic vol] 8.3 fL Normal 7.4-10.4 [facility] Comment on above: Performed By: #### P T/AP, HEMOG, BMP3M #### [address] Platelets (Bld) [#/Vol] 243 10*3/uL Normal 140-440 [facility] Comment on above: Performed By: #### P T/AP, HEMOG, BMP3M #### [address] RBC (Bld) [#/Vol] 3.94 10*6/uL Low 4.40-5.90 [facility] Comment on above: Performed By: #### P T/AP, HEMOG, BMP3M #### [address] WBC (Bld) [#/Vol] 16.0 10*3/uL High 3.6-10.7 [facility] Comment on above: Performed By: #### P T/AP, HEMOG, BMP3M #### [address] No Panel InformationOrdered By: Ady Deras on 11-10-2020 Test Performed by [facility], [address] [place] [address] [facility] Work Phone: PROTIME/INR & PTTOrdered By: Ady Deras on 11-10-2020 INR Coag (Bld) [Relative time] 1.0 {INR} [facility] Work Phone: Comment on above: Recommended Anticoag [...] Coag (Bld) [Time] 24.2 s Normal 20.0-30.5 [facility] Work Phone: Comment on above: NOTE: The therapeuti c time for Heparin anticoagulation, based on Xa activity inhibition, is an APTT of 46-80 seconds. Result Comment: NOTE : The therapeutic time for Heparin anticoagulation, based on Xa activity inhibition, is an APTT of 46-80 seconds. Performed By: #### P T/SHAN KIRK BMP3M #### [facility] [place] [address] PT Coag (PPP) [Time] 11.1 s Normal 9.0-12.0 [facility] Work Phone: Comment on above: . Result Comment: . Performed By: #### P T/SHAN KIRK BMP3M #### [facility] [address] [place] [address] Protime AND APTTon INR 1.0 Normal 0.9-1.1 [facility] [employer] Comment on above: Result Comment: Todd mmended [...] By: #### P T/SHAN KIRK BMP3Solitario #### [facility] [address] [place] [address] CNOVon 11-04-2020 CNOV Office Visit (FAMPWS ) FEI ROGERS ([id number]) 1935 M Date Time Provider Department 11/04/20 [...] Anemia of renal disease - Atherosclerosis of [place] artery of both lower extremities with intermittent [...] III MD Referring Provider: MARCOS MCCANN III [[id number]] Allergies As of Date: 11/04/2020 Noted Allergy [...] up, lab review Primary Visit Diagnosis:Atherosclerosis of [place] artery of both lower extremities with intermittent claudication (HCC) [I70.213] Other Visit Diagnoses:Hyperlipidemia LDL goal <100 [E78.5] Stage 3a chronic kidney disease (HCC) [N18.31] Essential hypertension, benign [I10] Atherosclerosis of [place] coronary artery of [place] heart without angina pectoris [I25.10] Order(s):omeprazole (PRILOSEC) 20 mg capsuleTake 1 capsule by mouth every morning.Disp: 90 capsuleRfl: 3 metoprolol tartrate, (more content not included)... Normal [facility] CNPNon 11-04-2020 CNPN Telephone (FAMPWS) FEI ROGERS ([id number]) 1935 M Date Time Provider Department 11/04/20 [...] Fully Assessed Reason for Visit: Medication Question [3268] Order(s):sildenafil (VIAGRA) 50 mg tabletuse one/day as [...] of colon polyps [Z86.010] 04/20/2016 Atherosclerosis of [place] artery of both lower *04/21/2017 Secondary hyperparathyroidism (HCC) [N25.81] 11/01/2017 11/15/2018 Disorder of the skin and subcutaneous tissue, u*04/05/2017 04/25/2018 Prescriptions ordered this encounter Disp Refills Start End SILDENAFIL 50 MG TABLET 6 ta* 6 11/04/2020 Sig: use one/day as needed Encounter Status:Closed by SALLIE WEBSTER LPN on 11/04/20 [facility] Telephone (FAMWS) FEI ROGERS ([id number]) 1935 M Date Time Provider Department 11/04/20 [facility] During your visit today, we recorded the following information about you: Solitario Doss RN 11/04/2020 10:43 AM Signed Mailed recent lab results and orders for next labs, to patient, via [facility], per request. Address verified. Allergies As of [...] of colon polyps [Z86.010] 04/20/2016 Atherosclerosis of [place] artery of both lower *04/21/2017 Secondary hyperparathyroidism (HCC) [N25.81] 11/01/2017 11/15/2018 Disorder of the skin and subcutaneous tissue, u*04/05/2017 04/25/2018 Encounter Status:Closed by Solitario DOSS RN on 11/04/20 [facility] 10-04-2020 CNPN Telephone (FAMPWS) FEI ROGERS ([id number]) 1935 M Date Time Provider Department 10/04/20 MARCOS MCCANN III During your visit today, we recorded the following information about you: Rain Alejandro RN 10/04/2020 1:20 PM Signed Pt's called, verified pt by name and birthdate. Pt's wants to know if PCP can order labs for pt's upcoming apt. Pt had labs completed at [facility] on 04-26-2021. Please advise Rain Mccann III [...] as they have to be completed at [facility]. Orders printed AND mailed. Nora Stratton DIPIKA Allergies As of Date: 10/04/2020 Noted Allergy Reaction CONTRAST DYE 05/31/2012 14 - Other: See Comments Comments: Use caution when injection with any dye d/t decreased renal functions. HYGROTON 04/18/2019 14 - Other: See Comments Comments: erectile dysfunction Date Reviewed: 04/30/2020 Reviewed by: Deloris ([facility]) DAVID Mccormick - Fully Assessed Reason for Visit: Orders [681] Primary Visit Diagnosis:Hyperlipidemia LDL goal <100 [E78.5] Other Visit Diagnoses:Essential hypertension, benign [I10] Stage 3a chronic kidney disease (HCC) [N18.31] Vitamin D deficiency [E55.9] Order(s):COMP METABOLIC PANEL [SQCMP] Order #: [id number] FUTURE LIPID PANEL BASIC [SQLIPB] Order #: [id number] FUTURE VITAMIN D 25 HYDROXY [SQVITD] Order #: [id number] FUTURE Prescriptions as of 10/04/2020 Sig: AMLODIPINE [...] of colon polyps [Z86.010] 04/20/2016 Atherosclerosis of [place] artery of both lower *04/21/2017 Secondary hyperparathyroidism (HCC) [N25.81] 11/01/2017 11/15/2018 Disorder of the skin and subcutaneous tissue, u*04/05/2017 04/25/2018 Encounter Status:Closed by TESSA URBINA on 10/04/20 Normal [facility] Vital Signs Date Time Vital Sign Value Performing Clinician Facility 02-07-2024 10:00-0400 Diastolic Blood Pressure Non-Invasive 62 mm[Hg] DR YADIEL ROBERSON MD [facility] 02-07-2024 10:00-0400 Respiratory rate 16 /min DR YADIEL ROBERSON MD [facility] 02-07-2024 10:00-0400 Systolic Blood Pressure Non-Invasive 147 mm[Hg] DR YADIEL ROBERSON MD [facility] 02-07-2024 09:52-0400 Diastolic Blood Pressure Non-Invasive 53 mm[Hg] DR YADIEL ROBERSON MD [facility] 02-07-2024 09:52-0400 Heart rate 68 /min DR YADIEL ROBERSON MD [facility] 02-07-2024 09:52-0400 Respiratory rate 15 /min DR YADIEL ROBERSON MD [facility] 02-07-2024 09:52-0400 Systolic Blood Pressure Non-Invasive 150 mm[Hg] DR YADIEL ROBERSON MD [facility] 02-07-2024 09:43-0400 Diastolic Blood Pressure Non-Invasive 66 mm[Hg] DR YADIEL ROBERSON MD [facility] 02-07-2024 09:43-0400 Heart rate 69 /min DR YADIEL ROBERSON MD [facility] 02-07-2024 09:43-0400 Respiratory rate 18 /min DR YADIEL ROBERSON MD [facility] 02-07-2024 09:43-0400 Systolic Blood Pressure Non-Invasive 132 mm[Hg] DR YADIEL ROBERSON MD [facility] 02-07-2024 09:37-0400 Body temperature 96.98 [degF] DR YADIEL ROBERSON MD [facility] 02-07-2024 09:30-0400 Respiratory Rate - Anes 13 br/min DR YADIEL ROBERSON MD [facility] 02-07-2024 09:25-0400 Respiratory Rate - Anes 14 br/min DR YADIEL ROBERSON MD [facility] 02-07-2024 09:20-0400 Respiratory Rate - Anes 17 br/min DR YADIEL ROBERSON MD [facility] 02-07-2024 08:14-0400 Body height 167.[address] YADIEL ROBERSON MD [facility] 02-07-2024 08:14-0400 Body weight 59.[address] YADIEL ROBERSON MD [facility] 02-07-2024 08:14-0400 Body weight 21.01 kg/m2 DR YADIEL ROBERSON MD [facility] 02-07-2024 08:070400 Body height 167.[address] YADIEL ROBERSON MD [facility] 02-07-2024 08:07-0400 Body temperature 97.34 [degF] DR YADIEL ROBERSON MD [facility] 02-07-2024 08:070400 Body weight 59.[address] YADIEL ROBERSON MD [facility] 02-07-2024 08:07-0400 Heart rate 71 /min DR YADIEL ROBERSON MD [facility] 01-03-2024 10:31-0400 Diastolic Blood Pressure Non-Invasive 61 mm[Hg] DR YADIEL ROBERSON MD [facility] 01-03-2024 10:31-0400 Heart rate 75 /min DR YADIEL ROBERSON MD [facility] 01-03-2024 10:31-0400 Respiratory rate 19 /min DR YADIEL ROBERSON MD [facility] 01-03-2024 10:31-0400 Systolic Blood Pressure Non-Invasive 150 mm[Hg] DR YADIEL ROBERSON MD [facility] 01-03-2024 10:25-0400 Diastolic Blood Pressure Non-Invasive 48 mm[Hg] DR YADIEL ROBERSON MD [facility] 01-03-2024 10:25-0400 Heart rate 70 /min DR YADIEL ROBERSON MD [facility] 01-03-2024 10:25-0400 Respiratory rate 15 /min DR YADIEL ROBERSON MD [facility] 01-03-2024 10:25-0400 Systolic Blood Pressure Non-Invasive 140 mm[Hg] DR YADIEL ROBERSON MD [facility] 01-03-2024 10:20-0400 Diastolic Blood Pressure Non-Invasive 48 mm[Hg] DR YADIEL ROBERSON MD [facility] 01-03-2024 10:20-0400 Heart rate 69 /min DR YADIEL ROBERSON MD [facility] 01-03-2024 10:20-0400 Respiratory rate 18 /min DR YADIEL ROBERSON MD [facility] 01-03-2024 10:20-0400 Systolic Blood Pressure Non-Invasive 128 mm[Hg] DR YADIEL ROBERSON MD [facility] 01-03-2024 09:55-0400 Respiratory Rate - Anes 21 br/min DR YADIEL ROBERSON MD [facility] 01-03-2024 09:50-0400 Respiratory Rate - Anes 19 br/min DR YADIEL ROBERSON MD [facility] 01-03-2024 09:45-0400 Respiratory Rate - Anes 15 br/min DR YADIEL ROBERSON MD [facility] 01-03-2024 09:14-04[address] Cuff Size DR YADIEL ROBERSON MD [facility] 01-03-2024 09:14-[address] YADIEL ROBERSON MD [facility] 01-03-2024 09:14-[address] YADIEL ROBERSON MD [facility] 01-03-2024 09:14-0400 Body height 167.[address] YADIEL ROBERSON MD [facility] 01-03-2024 09:14-0400 Body temperature 97.34 [degF] DR YADIEL ROBERSON MD [facility] 01-03-2024 09:14-0400 Body weight 59.[address] YADIEL ROBERSON MD [facility] 01-03-2024 09:14-0400 Body weight 21.02 kg/m2 DR YADIEL ROBERSON MD [facility] 01-03-2024 09:14-0400 Heart rate 62 /min DR YADIEL ROBERSON MD [facility] 12-27-2023 11:32-0400 Diastolic Blood Pressure Non-Invasive 64 mm[Hg] DR YADIEL ROBERSON MD [facility] 12-27-2023 11:32-0400 Heart rate 61 /min DR YADIEL ROBERSON MD [facility] 12-27-2023 11:32-0400 Respiratory rate 20 /min DR YADIEL ROBERSON MD [facility] 12-27-2023 11:32-0400 Systolic Blood Pressure Non-Invasive 128 mm[Hg] DR YADIEL ROBERSON MD [facility] 12-27-2023 11:20-0400 Diastolic Blood Pressure Non-Invasive 80 mm[Hg] DR YADIEL ROBERSON MD [facility] 12-27-2023 11:20-0400 Heart rate 65 /min DR YADIEL ROBERSON MD [facility] 12-27-2023 11:20-0400 Respiratory rate 16 /min DR YADIEL ROBERSON MD [facility] 12-27-2023 11:20-0400 Systolic Blood Pressure Non-Invasive 119 mm[Hg] DR YADIEL ROBERSON MD [facility] 12-27-2023 11:16-0400 Body temperature 96.98 [degF] DR YADIEL ROBERSON MD [facility] 12-27-2023 11:16-0400 Diastolic Blood Pressure Non-Invasive 50 mm[Hg] DR YADIEL ORBERSON MD [facility] 12-27-2023 11:16-0400 Heart rate 62 /min DR YADIEL ROBERSON MD [facility] 12-27-2023 11:16-0400 Respiratory rate 18 /min DR YADIEL ROBERSON MD [facility] 12-27-2023 11:16-0400 Systolic Blood Pressure Non-Invasive 117 mm[Hg] DR YADIEL ROBERSON MD [facility] 12-27-2023 11:10-0400 Respiratory Rate - Anes 12 br/min DR YADIEL ROBERSON MD [facility] 12-27-2023 11:05-0400 Respiratory Rate - Anes 23 br/min DR YADIEL ROBERSON MD [facility] 12-27-2023 11:00-0400 Respiratory Rate - Anes 15 br/min DR YADIEL ROBERSON MD [facility] 12-27-2023 10:34-0400 Body height 167.[address] YADIEL ROBERSON MD [facility] 12-27-2023 10:34-0400 Body temperature 96.8 [degF] DR YADIEL ROBERSON MD [facility] 12-27-2023 10:34-0400 Body weight 56.[address] YADIEL ROBERSON MD [facility] 12-27-2023 10:34-0400 Body weight 20.2 kg/m2 DR YADIEL ROBERSON MD [facility] 12-27-2023 10:34-0400 Heart rate 67 /min DR YADIEL ROBERSON MD [facility] 11-12-2020 12:00-0400 Heart rate 65 /min Rustam [...] 61.8 kg Rustam Gasca DO Work Phone: [facility] Work Phone: Encounters Encounter Date Encounter Type Care Provider Facility Start: 02-07-2024 End: 02-07-[address] YADIEL ROBERSON MD Facility:B Start: 02-07-2024 End: 02-07-[address] YADIEL ROBERSON MD [facility] Start: 01-03-2024 End: 01-03-[address] YADIEL ROBERSON MD Facility:B Start: 01-03-2024 End: 01-03-[address] YADIEL ROBERSON MD [facility] Start: 12-29-[address] YADIEL ROBERSON MD Fa cility:B Start: 12-27-2023 End: 12-27-[address] YADIEL ROBERSON MD Facility:B Start: 12-27-2023 End: 12-27-[address] YADIEL ROBERSON MD [facility] Start: 11-10-2020 End: 11-12-2020 Evaluation and management [...] 25 hydroxy includes fractions if performed Rafael oLngo MD Work Phone: Start: 11-11-2020 Urnls dip stick/tablet rgnt auto w/o microscopy Esperanza Bella Appleton DO Work Phone: Start: 11-11-2020 Mra head [...] - Tdap) DTaP/Tdap/Td vaccine (2 - Tdap) [facility] Work Phone: Start: 03-19-2021 Influenza vaccination Flu vacc ine (Season Ended) [facility] Work Phone: Start: 11-20-2020 End: 11-20-2020 Patient encounter procedure 11/20/2020 Office Visit Neurology Vince Pantoja MD [address] [place] [address] [phone] [facility] [address] Start: 11-11-2020 Annual Wellness Visi t (AWV) Annual Wellness Visit (AWV) [facility] Work Phone: Start: 2001 Pneumococcal 65+ yea [...] rences starting 11/11/2020 until 11/11/2020 Oxygen therapy [[facility] Data Set] Initiate Oxygen Therapy Protocol Respiratory Care Routine Daily until discontinued starting 11/10/2020 [facility] Phone: Comment on above: Daily until disconti nued starting 11/10/2020 Spirometry panel Incentive [place] Respiratory Care Routine Every 1hr while awake until discontinued starting 11/10/2020 [facility] Phone: Comment on above: Every 1hr while awak e until discontinued starting 11/10/2020 Payers Date Payer Category Payer Medicare [id number] 1935 Unknown [id number] 1935 Unknown [id number] 1935 Unknown [id number] 1935 Unknown [id number] Social History Date Type Detail Facility Start: 11-10-2020 Tobacco smoking stat [facility] Former smoker [facility] Phone: History of tobacco use Cigarette Smoker S [facility] Start: 11-10-2020 Cigarettes smoked current (pack per day) - Reported [facility] Phone: Start: 11-10-2020 Alcohol intake Current drinke r of alcohol (finding) [facility] Work Phone: Start: 11-10-2020 History SDOH Alcohol Frequency 1 [facility] Phone: Start: 11-10-2020 Tobacco Comment quit smoking at 20 [facility] [employer] Work Phone: Start: 11-10-2020 Alcohol Comment once jessica while [facility] Work Phone: Sex Assigned At Not on file [facility] Work Phone: Exposure to SARS-CoV -2 (event) Not sure [facility] Start: 12-27-2023 Tobacco smoking status Never s moked tobacco (finding) [facility] Sex Assigned At Male [facility] Functional Status Date Assessment Result Facility 02-07-2024 Functional Status Awake [facility] 02-07-2024 Functional Status [facility] 01-03-2024 Functional Status Awake [facility] 01-03-2024 Functional Status [facility] 12-27-2023 Functional Status Maintained [facility] Mental Status Date Assessment Result Facility 02-07-2024 Mental Status Oriented x 4 [facility] 02-07-2024 Mental Status [facility] 12-27-2023 Mental Status Oriented x 4 [facility] Clinical Notes 08-09-2020 to 02-07-2024 Note Date & Type Note Facility 02-07-2024 Evaluation + Plan note Extrac campbell from: Title:Clinical Document Author:YADIEL ROBERSON Date:02/07/24 [place] ADMISSION HISTORY AN D PHYSICIAL CHIEF COMPLAINT: HISTORY OF PRESENT ILLNESS: REVIEW OF SYSTEMS: ACTIVE PROBLEMS: (1) GERD (gastroesophageal reflux disease) ([id number]) MEDICATIONS: Active Inpt Meds: None Active PRN Meds: None One Time Meds: None Active IV Meds: Lactated Ringers Infusion 1,000 mL Start: 02/07/24 7:58:00 EDT, Rate: 20 mL/hr, 02/07/24 7:58:00 EDT ALLERGIES: (1) Contrast dye FAMILY HISTORY: SOCIAL HISTORY: PHYSICAL EXAM: VITALS: ObaeqcVpzdEXWuxltKLLiZ2ADZ4TpmxNu(kg) 02/06 08:0736.3--[id number]--81/22 59.1 02/06 59.1 24 Hr Tmax: 36.3 [...] changes to the H&P unless noted below. [facility] 07-22-2024 Hospital Discharge instructions Patient Education 02/07/2024 [...] including vitamins, herbs, eye drops, creams, and bczh-qhw-kththnm medicines. Any problems you or family members [...] home. Follow these instructions at home: Take sdeo-aue-uvjnmyr and prescription medicines only as told by [...] 08/26/2006 Document Revised: 06/17/2018 Document Reviewed: 05/10/2018 [employer] Patient Education 2020 [place]. 02/07/2024 09:49:07 Monitored Anesthesia Care, Care After [...] before eating solid foods. General instructions Take pcvm-tnr-kinbsqa and prescription medicines only as told by [...] 10/25/2016 Document Revised: 10/03/2018 Document Reviewed: 10/25/2016 [employer] Patient Education 2020 [place]. 02/07/2024 09:48:59 9 - AO Minor Esophagogastroduodenoscopy [...] 07:48:03 With:YADIEL ROBERSON Address: [address] [address] [phone] Business (1) When: Unknown Comments:WHEN NEEDED [facility] Nunudaniella Siegel 07-22-2024 Note Discharge Instructions Thank you for allowing [facility] to assist you with your healthcare needs. The following is importantdischarge information regarding your hospital visit. Your Care Team AMANDA DAVIS DO What to do next Follow Up Appointments Follow Up with YADIEL ROBERSON Where:[address] [place], [place] [id number]- [phone] Business (1) Additional Information: WHEN NEEDED The [...] including vitamins, herbs, eye drops, creams, and vslm-euu-hmfweny medicines. Any problems you or family members [...] home. Follow these instructions at home: Take cmjz-elu-zkrkfsi and prescription medicines only as told by [...] Document Reviewed: 05/10/2018 Elsevier Patient Education 2020 [employer] Monitored Anesthesia Care, Care After These [...] before eating solid foods. General instructions Take zjzn-sli-aikkunj and prescription medicines only as told by [...] 10/25/2016 Document Revised: 10/03/2018 Document Reviewed: 10/25/2016 [employer] Patient Education 2020 [employer] Esophagogastroduodenoscopy This is an endoscopic procedure [...] to receive it can visit one of [facility] vaccine clinics. There are many vaccine clinic locations within the [facility]. For locations and available times, please visit [email or web address] It is important to note that some COVID mobile vaccine clinics are held outdoors and may be canceled in rainy or stormy conditions. To learn more about pediatric vaccinations (ages 5-11), we invite you to visit the [facility] webpage. [email or web address]/pages/[email or web address]-[email or web address]-[email or web address] stions.htmlTo learn more about the COVID-19 vaccine, we invite you to visit the CDC website for a list of frequently asked questions.https://www.cdc.gov/coronavirus/2019-ncov/vaccines/faq.html [facility] Patient Portal Access Instructions: Stay connected with your healthcare team and access your personal medical information anytime with the [facility] Patient Portal. Please follow the directions below to create your [facility] account: 1.Access the email account you provided upon registration to the hospital/physician office.2.Look for an invitation email from [facility].3.Open the email and access the invitation link: AcceptInvitation to [facility].4.Fill in the required gomez to create your account. To access your account, visit [email or web address]. Click the blue button labeled Access Patient [...] who you will allowto register on the [facility] Patient Portal for access to your information. You can also access the [facility] Patient Portal on the [facility] melany. Simply click on Patient Portal and then log into your account. If you would like to receive a full copy of your medical records, please contact the [facility] Medical Records Department by calling [phone], Wednesday through Wednesday between 8 a.m. and [...] Call your local pharmacy or go to [email or web address] to find one close to you.3.Make use of household items: Use cat litter or old coffee grounds to dispose medications if other options arenot available. Mix your drugs with these household products, seal them in an airtight container andthrow it into the garbage. Call [facility]: [phone] to be sure your drugs can be [...] aware that I should contact my doctor. 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 Assessment Postanesthesia assessment Vitals: Vital signs [...] by JIAN RIVERA on 02/07/2024 09:35 AM [facility]07-22-2024 Note [place] ADMISSION HISTORY AND PHYSICIAL CHIEF COMPLAINT: HISTORY OF PRESENT ILLNESS: REVIEW OF SYSTEMS: ACTIVE PROBLEMS: (1) GERD (gastroesophageal reflux disease) ([id number]) MEDICATIONS: Active Inpt Meds: None Active PRN Meds: None One Time Meds: None Active IV Meds: Lactated Ringers Infusion 1,000 mL Start: 02/07/24 7:58:00 EDT, Rate: 20 mL/hr, 02/07/24 7:58:00 EDT ALLERGIES: (1) Contrast dye FAMILY HISTORY: SOCIAL HISTORY: PHYSICAL EXAM: VITALS: CcetxiMrngMUAnamkDBSsA8KHK9LjnjMi(kg) 02/06 08:0736.3--[id number]--24/22 59.1 02/06 59.1 24 Hr Tmax: 36.3 [...] YADIEL ROBERSON MD on 02/07/2024 09:17 AM [facility]07-22-2024 Anesthesiology Consult note Patient: FEI ROGERS Age: 88 years Sex: Male : 1935 Associated Diagnoses: None Author: JIAN RIVERA 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 Procedure history: Hand surgery ([id number]). 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 Ankle ([id number]). Comments: 12/27/2023 10:45 Archana Bates RN PIN [...] Signs (last 24 hrs) Last Charted Temp Ftrcbxnk11.3 DegC (FEB 06 08:07) Heart Rate Semyol42 bpm (FEB 06 08:07) SBPH 169 mmHg (FEB 06 08:07) DBP60 mmHg (FEB 06 08:07) BMI21.01 (FEB 06 08:14) Measurements from flowsheet : Measurements 02/07/2024 8:14 EDT Height 167.7 cm Admission Weight 59.1 kg [place] Body Weight 63.85 kg BSA Admission 1.67 Body Mass Index 21.01 kg/m2 02/07/2024 8:07 EDT Height 167.7 cm Admission Weight 59.1 kg [place] Body Weight 63.85 kg Admission Body Mass [...] EDT Designated Person #1 We May Share [facility] Designated Person #1 We May Share [facility] Designated Person #1 Relationship Spouse Height 167.7 cm Admission Weight 59.1 kg [place] Body Weight 63.85 kg BSA Admission 1.67 [...] Method Explanation, Printed materials Preferred Spoken Language Portuguese Preferred Written Language Portuguese Information Given by Patient Patient's Current Physicians [...] Height 167.7 cm Admission Weight 59.1 kg [place] Body Weight 63.85 kg Admission Body Mass [...] Quadrants Present Skin Temperature Warm Skin Description [place], Dry Skin Integrity Intact Mucous Membrane Color [place] Skin Moisture General Dry Characteristics of Speech [...] position, Wheels locked . Assessment and Plan [place] [employer] of Anesthesiologists (ASA) physical status classification: Class III. Anesthetic Preoperative Plan Premedication: intravenous. Anesthetic technique: MAC. Induction: intravenously. Maintenance airway: Mask. Risks discussed: nausea, vomiting, headache, sore throat, dental injury, hypotension, allergic reaction, serious complications. Informed consent: signed by patient. Digitally Signed by JIAN RIVERA on 02/07/2024 09:10 AM [facility]06-17-2024 Evaluation + Plan noteExtracted from: Title:Clinical Document Author:YADIEL ROBERSON Date:01/03/24 [place] ADMISSION HISTORY AN D PHYSICIAL CHIEF COMPLAINT: HISTORY OF PRESENT ILLNESS: REVIEW OF SYSTEMS: ACTIVE PROBLEMS: (1) GERD (gastroesophageal reflux disease) ([id number]) MEDICATIONS: Active Inpt Meds: None Active PRN Meds: None One Time Meds: None Active IV Meds: Lactated Ringers Infusion 1000 mL (LR 1000 mL) Start: 01/03/24 9:28:00 EDT, Rate: 20 mL/hr, 01/03/24 9:28:00 EDT ALLERGIES: (1) Contrast dye FAMILY HISTORY: SOCIAL HISTORY: PHYSICAL EXAM: VITALS: MvwipaOndhLRDodymRKJqG4NDX3CgbvWg(kg) 01/02 09:1436.3--937678PT13/17 59.1 24 Hr Tmax: 36.3 at 01/02 [...] changes to the H&P unless noted below. [facility] 06-17-2024 Hospital Discharge instructions Patient Education 01/03/2024 [...] including vitamins, herbs, eye drops, creams, and xuio-piu-vrvhadv medicines. Any problems you or family members [...] home. Follow these instructions at home: Take aigs-lmv-btxzayl and prescription medicines only as told by [...] 08/26/2006 Document Revised: 06/17/2018 Document Reviewed: 05/10/2018 [employer] Patient Education 2020 [employer]. 01/03/2024 10:03:19 Monitored Anesthesia Care, Care After [...] before eating solid foods. General instructions Take sphz-uau-mrximxd and prescription medicines only as told by [...] 10/25/2016 Document Revised: 10/03/2018 Document Reviewed: 10/25/2016 [employer] Patient Education 2020 [place]. 01/03/2024 10:03:12 9 - AO Minor Esophagogastroduodenoscopy [...] 01/03/2024 08:41:26 With:YADIEL ROBERSON MD Address: [address] [address] [phone] When: Unknown Comments:Follow-up as needed [facility] 06-17-2024 Note Date of Service January 03, 2024 Procedure Name EGD with balloon dilatation of stricture in the esophagus and biopsy of the stricture. Consent Taken before procedure Indication Patient with dysphagia and esophageal stricture Location [facility] Pre-Procedure Exam Patient with known esophageal [...] showed a large hiatal hernia. At the qiilskcyl16 biopsies were taken with jumbo forceps of [...] ESOPHAGEAL STRICTURE, SEE H&P, ESOPHAGOGASTRODUODENOSCOPY, DYSPHAGIA, DYSPHAGIA, [id number] Post Procedure Assessment, 01/03/24 10:10:00 EDT, Stop [...] YADIEL ROBERSON MD on 01/03/2024 10:14 AM [facility]06-17-2024 Summary of episode note Discharge Instructions Thank you for allowing [facility] to assist you with your healthcare needs. The following is importantdischarge information regarding your hospital visit. Your Care Team AMANDA DAVIS DO Your Diagnosis EGD What to do next Follow Up Appointments Follow Up with YADIEL ROBERSON MD Where:[address] [place] [address] [phone] Additional Information: Follow-up as needed The Following [...] including vitamins, herbs, eye drops, creams, and orgo-fxs-aoisbzy medicines. Any problems you or family members [...] home. Follow these instructions at home: Take fvom-lwc-jpfukdz and prescription medicines only as told by [...] 08/26/2006 Document Revised: 06/17/2018 Document Reviewed: 05/10/2018 [employer] Patient Education 2020 [place]. Monitored Anesthesia Care, Care After These instructions [...] before eating solid foods. General instructions Take fpeb-ekp-gyhdekn and prescription medicines only as told by [...] 10/25/2016 Document Revised: 10/03/2018 Document Reviewed: 10/25/2016 [employer] Patient Education 2020 [place]. Esophagogastroduodenoscopy This is an endoscopic procedure (a [...] to receive it can visit one of [facility] vaccine clinics. There are many vaccine clinic locations within the [facility]. For locations and available times, please visit [email or web address]/. It is important to note that some COVID mobile vaccine clinics are held outdoors and may be canceled in rainy or stormy conditions. To learn more about pediatric vaccinations (ages 5-11), we invite you to visit the [facility] webpage. https://www.[facility].org/pages/7296-Xwbae-Izpyoahkyft-Vcpnwgkdcg-Pecjq-Nwo stions.htmlTo learn more about the COVID-19 vaccine, we invite you to visit the CDC website for a list of frequently asked questions.https://www.cdc.gov/coronavirus/2019-ncov/vaccines/faq.html [facility] Patient Portal Access Instructions: Stay connected with your healthcare team and access your personal medical information anytime with the [facility] Patient Portal. Please follow the directions below to create your [facility] account: 1.Access the email account you provided upon registration to the hospital/physician office.2.Look for an invitation email from [facility].3.Open the email and access the invitation link: AcceptInvitation to [facility].4.Fill in the required gomez to create your account. To access your account, visit [facility] ([facility])/[facility]. Click the blue button labeled Access Patient Portal and then log in with the username and password that you created in the steps above. You will be able to view your test results, lab results, a summary of your visits, upcoming appointments and more. There is also a convenient messaging option where you can send secure messages to your p ProTipvider. In addition, you will have the ability to download any documents or summaries to your computer and/or send the information securely to a physician. Remember that your healthcare information is confidential, so carefully consider who you will allowto register on the [facility] Patient Portal for access to your information. You can also access the [facility] Patient Portal on the [facility] melany. Simply click on Patient Portal and then log into your account. If you would like to receive a full copy of your medical records, please contact the [facility] Medical Records Department by calling [phone], Wednesday through Wednesday between 8 a.m. and [...] Call your local pharmacy or go to [email or web address] to find one close to you.3.Make use of household items: Use cat litter or old coffee grounds to dispose medications if other options arenot available. Mix your drugs with these household products, seal them in an airtight container andthrow it into the garbage. Call [facility]: [phone] to be sure your drugs can be [...] aware that I should contact my doctor. 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 Director Signature: Date/Time: Relationship to Patient: Witness Name/Signature: Date/Time: [facility]06-17-2024 Note [place] ADMISSION HISTORY AND PHYSICIAL CHIEF COMPLAINT: HISTORY OF PRESENT ILLNESS: REVIEW OF SYSTEMS: ACTIVE PROBLEMS: (1) GERD (gastroesophageal reflux disease) ([id number]) MEDICATIONS: Active Inpt Meds: None Active PRN Meds: None One Time Meds: None Active IV Meds: Lactated Ringers Infusion 1000 mL (LR 1000 mL) Start: 01/03/24 9:28:00 EDT, Rate: 20 mL/hr, 01/03/24 9:28:00 EDT ALLERGIES: (1) Contrast dye FAMILY HISTORY: SOCIAL HISTORY: PHYSICAL EXAM: VITALS: RhoicfFeoxNOLfxbfFJSpE9IRU0FrhdOe(kg) 01/02 09:1436.3--020178JV24/17 59.1 24 Hr Tmax: 36.3 at 01/02 [...] YADIEL ROBERSON MD on 01/03/2024 09:44 AM [facility]06-17-2024 Anesthesiology Consult note Patient: FEI ROGERS Age: [...] selected or recorded. Procedure history: Hand surgery ([id number]). 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 Ankle ([id number]). Comments: 12/27/2023 10:45 EDEN - Archana Hawthorne [...] Signs (last 24 hrs) Last Charted Temp Htanvrvg15.3 DegC (JAN 02 09:14) Heart Rate Lmzwvq84 bpm (JAN 02:14) SBPH 168 mmHg (JAN 02:14) DBPL 58 mmHg (JAN 02:14) BMI21.02 (JAN 02:14) Measurements from flowsheet : Measurements 01/03/2024 9:14 EDT Height 167.69 cm Admission Weight 59.1 kg Weight Method Stated [place] Body Weight 63.85 kg BSA Admission 1.67 [...] Surgeon SN - CAt - Role Performed CONDITIONING ROOM WORKER SN - CAt - Role Performed Leave Coordinator 1 SN - CAt - Role Performed Clinical Engineer 01/03/2024 9:29 EDT Lactated Ringers Injection Begin [...] Admission Weight 59.1 kg Weight Method Stated [place] Body Weight 63.85 kg BSA Admission 1.67 [...] Method Explanation, Printed materials Preferred Spoken Language Portuguese Preferred Written Language Portuguese Information Given by Patient Patient's Current Physicians [...] Note-Nursing Procedure/Therapy Intake . Assessment and Plan [place] Society of Anesthesiologists (ASA) physical status classification: Class IV. Anesthetic Preoperative Plan Anesthetic technique: MAC. Postoperative pain management: Per surgeon. Risks discussed: nausea, vomiting, sore throat, dental injury, hypotension, allergic reaction, serious complications. Informed consent: signed by patient. Digitally Signed by ROXANN GARCÍA on 01/03/2024 09:39 AM [facility]06-10-2024 Evaluation + Plan noteExtracted from: Title:Clinical Document Author:YADIEL ROBERSON Date:12/27/23 [place] ADMISSION HISTORY AN D PHYSICIAL CHIEF COMPLAINT: HISTORY OF PRESENT ILLNESS: REVIEW OF SYSTEMS: ACTIVE PROBLEMS: (1) GERD (gastroesophageal reflux disease) ([id number]) MEDICATIONS: Active Inpt Meds: None Active PRN Meds: None One Time Meds: None Active IV Meds: Lactated Ringers Infusion 1,000 mL (LR 1,000 mL) Start: 12/27/23 10:32:00 EDT, Rate: 50 mL/hr, 12/27/23 10:32:00 EDT ALLERGIES: (1) Contrast dye FAMILY HISTORY: SOCIAL HISTORY: PHYSICAL EXAM: VITALS: UhhzfcVcohHBXhdiaDNDlF6ICM3DutbXa(kg) 12/26 10:3436--420812FG14/10 56.8 24 Hr Tmax: 36 at 12/26 [...] changes to the H&P unless noted below. [facility] 06-10-2024 Hospital Discharge instructions Patient Education 12/27/2023 11:36:24 Nausea and Vomiting, Adult, Wuax-tl-Ftzb Nausea and Vomiting, Adult Nausea is feeling [...] fruit juice). ?Low-calorie sports drinks. Eat bland, evvz-vj-lylqmg foods in small amounts as you are able, such as: ?Bananas. ?Applesauce. ?Rice. ?Low-fat (lean) meats. ?[place]. ?Crackers. Avoid drinking fluids that have a lot of sugar or caffeine in them. This includes energy drinks, sports drinks, and soda. Avoid alcohol. Avoid spicy or fatty foods. General instructions Take dcuy-nwe-uchtnim and prescription medicines only as told by your doctor. Drink enough fluid to keep your pee (urine) pale yellow. Wash your hands often with soap and water. If you cannot use soap and water, use hand workforce services representative. Make sure that all people in your [...] too much water in your body. Take gdmw-sse-oykiujy and prescription medicines only as told by [...] 12/21/2008 Document Revised: 10/27/2019 Document Reviewed: 12/13/2018 [employer] Patient Education 2020 [employer] 12/27/2023 11:36:16 Moderate Conscious Sedation, Adult, Care [...] until you are awake and alert. Take vdrx-urd-hurgfpq and prescription medicines only as told by [...] 04/25/2014 Document Revised: 06/17/2018 Document Reviewed: 10/24/2016 [employer] Patient Education 2020 [employer] 12/27/2023 11:35:59 Soft-Food Eating Plan Soft-Food Eating [...] Sherbet. Pudding. Fats and oils Butter. Margarine. [place], canola, sunflower, and grapeseed oil. Smooth salad dressing. Smooth creamcheese. Mayonnaise. Gravy. What foods are not allowed? The items listed bemay not be a complete list. Talk with your dietitian about what dietary choices are best for you. Grains Coarse or dry cereals, such as bran, granola, and shredded wheat. Tough or chewy crusty breads, such as Armenian bread or baguettes. Breads with nuts, seeds, [...] Lunch meat and hotdogs. Nuts and seeds. [place] peanut butter or other nut butters. Sweets [...] 10/11/2008 Document Revised: 10/26/2019 Document Reviewed: 09/07/2017 [employer] Patient Education 2020 [place]. 12/27/2023 11:28:05 Esophageal Stricture Esophageal Stricture Esophageal [...] ?Soda. ?Tomato products. ?Chocolate. General instructions Take jbut-cmd-cposobo and prescription medicines only as told by [...] 03/15/2007 Document Revised: 09/30/2018 Document Reviewed: 03/11/2018 [employer] Patient Education 2020 [place]. 12/27/2023 11:19:56 Esophageal Cancer Esophageal Cancer Esophageal [...] an appetite, meet with a dietitian. Take ahlg-fju-ewiqwaz and prescription medicines only as told by your health care provider. Consider joining a support group for people who have been diagnosed with esophageal cancer. Work with your cancer care team to manage any side effects of treatment. Keep all follow-up visits as told by your health care provider. This is important. Where to find more information [place] Cancer Society: www.cancer.org National Cancer [place] (NCI): www.cancer.gov Contact a health care provider [...] 06/17/2009 Document Revised: 01/05/2019 Document Reviewed: 04/06/2018 [employer] Patient Education 2020 [place]. 12/27/2023 11:19:50 9 - AO Minor Esophagogastroduodenoscopy [...] 07:57:24 With:YADIEL ROBERSON MD Address: [address] [place] [address] [phone] When:3-5 days With:VICKY NATH DO Address: [address] [place] [address] [phone] When:1-2 days [facility] 06-10-2024 Note Discharge Instructions Thank you for allowing [facility] to assist you with your healthcare needs. The following is importantdischarge information regarding your hospital visit. Your Care Team AMANDA DAVIS DO, Dr. What to do next Instructions From Your Doctor Soft Diet, No meat unless blended Follow Up Appointments Follow Up with YADIEL ROBERSON MD When:Within 3-5 days Where:[address] [place] [address] [phone] Follow Up with VICKY NATH DO When:Within 1-2 days Where:[address] [place] [address] [phone] Allergies Contrast dye Medications Please ask your [...] juice). ? Low-calorie sports drinks. Eat bland, agli-fm-zgdzdg foods in small amounts as you are able, such as: ? Bananas. ? Applesauce. ? Rice. ? Low-fat (lean) meats. ? [place]. ? Crackers. Avoid drinking fluids that have a lot of sugar or caffeine in them. This includes energy drinks, sports drinks, and soda. Avoid alcohol. Avoid spicy or fatty foods. General instructions Take ovqm-hzk-urwdvbs and prescription medicines only as told by your doctor. Drink enough fluid to keep your pee (urine) pale yellow. Wash your hands often with soap and water. If you cannot use soap and water, use hand workforce services representative. Make sure that all people in your [...] too much water in your body. Take nxaw-pgd-pbyqxhr and prescription medicines only as told by [...] 12/21/2008 Document Revised: 10/27/2019 Document Reviewed: 12/13/2018 [employer] Patient Education [employer]. Moderate Conscious Sedation, Adult, Care After These [...] until you are awake and alert. Take xnss-aoi-iuvpqpz and prescription medicines only as told by [...] 04/25/2014 Document Revised: 06/17/2018 Document Reviewed: 10/24/2016 [employer] Patient Education [employer]. Soft-Food Eating Plan A soft-food eating plan [...] Sherbet. Pudding. Fats and oils Butter. Margarine. [place], canola, sunflower, and grapeseed oil. Smooth salad dressing. Smooth creamcheese. Mayonnaise. Gravy. What foods are not allowed? The items listed bemay not be a complete list. Talk with your dietitian about what dietary choices are best for you. Grains Coarse or dry cereals, such as bran, granola, and shredded wheat. Tough or chewy crusty breads, such as Armenian bread or baguettes. Breads with nuts, seeds, [...] Lunch meat and hotdogs. Nuts and seeds. [place] peanut butter or other nut butters. Sweets [...] 10/11/2008 Document Revised: 10/26/2019 Document Reviewed: 09/07/2017 [employer] Patient Education 2020 [place]. Esophageal Stricture Esophageal stricture is a narrowing [...] Tomato products. ? Chocolate. General instructions Take midt-ogd-ffcnari and prescription medicines only as told by [...] 03/15/2007 Document Revised: 09/30/2018 Document Reviewed: 03/11/2018 [employer] Patient Education 2020 [place]. Esophageal Cancer Esophageal cancer is an abnormal [...] Bales's esophagus. ? Achalasia. ? Tylosis. ? [place] syndrome. ? HPV (human papillomavirus). What [...] an appetite, meet with a dietitian. Take eivj-ggj-wkqqiub and prescription medicines only as told by your health care provider. Consider joining a support group for people who have been diagnosed with esophageal cancer. Work with your cancer care team to manage any side effects of treatment. Keep all follow-up visits as told by your health care provider. This is important. Where to find more information [place] Cancer Society: www.cancer.org National Cancer [place] (NCI): www.cancer.gov Contact a health care provider [...] 06/17/2009 Document Revised: 01/05/2019 Document Reviewed: 04/06/2018 [employer] Patient Education 2020 [place]. Esophagogastroduodenoscopy This is an endoscopic procedure (a [...] to receive it can visit one of [facility] vaccine clinics. There are many vaccine clinic locations within the [facility]. For locations and available times, please visit [email or web address].[place].gov/. It is important to note that some COVID mobile vaccine clinics are held outdoors and may be canceled in rainy or stormy conditions. To learn more about pediatric vaccinations (ages 5-11), we invite you to visit the [facility] webpage. https://www.[employer]s.org/pages/2888-Edrep-Blunfctdptw-Qifotaieoc-Lrvgh-Sko stions.htmlTo learn more about the COVID-19 vaccine, we invite you to visit the CDC website for a list of frequently asked questions.https://www.cdc.gov/coronavirus/2019-ncov/vaccines/faq.html [facility] Patient Portal Access Instructions: Stay connected with your healthcare team and access your personal medical information anytime with the [facility] Patient Portal. Please follow the directions below to create your [employer] account: 1.Access the email account you provided upon registration to the hospital/physician office.2.Look for an invitation email from [facility].3.Open the email and access the invitation link: AcceptInvitation to [employer].4.Fill in the required gomez to create your account. To access your account, visit [facility] ([employer])/[facility] InternationalOneChart. Click the blue button labeled Access Patient Portal and then log in with the username and password that you created in the steps above. You will be able to view your test results, lab results, a summary of your visits, upcoming appointments and more. There is also a convenient messaging option where you can send secure messages to your p ProTipvider. In addition, you will have the ability to download any documents or summaries to your computer and/or send the information securely to a physician. Remember that your healthcare information is confidential, so carefully consider who you will allowto register on the [employer] Patient Portal for access to your information. You can also access the [employer] Patient Portal on the [facility] Anywhere melany. Simply click on Patient Portal and then log into your account. If you would like to receive a full copy of your medical records, please contact the [facility] Medical Records Department by calling [phone], Wednesday through Wednesday between 8 a.m. and [...] Call your local pharmacy or go to [email or web address] to find one close to you.3.Make use of household items: Use cat litter or old coffee grounds to dispose medications if other options arenot available. Mix your drugs with these household products, seal them in an airtight container andthrow it into the garbage. Call [facility]: [phone] to be sure your drugs can be [...] Patient Education Materials Nausea and Vomiting, Adult, Zlzj-er-Rtky Moderate Conscious Sedation, Adult, Care After Soft-Food [...] aware that I should contact my doctor. 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 Director Signature: Date/Time: Relationship to Patient: Witness Name/Signature: Date/Time: [facility]06-10-2024 Note Date of Service 12/27/2023 Procedure Name EGD with balloon dilatation and biopsy of stricture Consent Taken before procedure Indication Patient with dysphagia and abnormal esophagram Location [facility] Pre-Procedure Exam Dysphagia and abnormal esophagram [...] YADIEL ROBERSON MD on 12/27/2023 11:21 AM [facility]06-10-2024 Anesthesiology Consult note Patient: FEI ROGERS Age: 88 years Sex: Male : 1935 Associated Diagnoses: None Author: JIAN RIVERA RETIREMENT PLAN COUNSELOR-CONDITIONING ROOM WORKER Assessment Postanesthesia assessment Vitals: Vital signs [...] by JIAN RIVERA on 12/27/2023 11:13 AM [facility]06-10-2024 Note [place] ADMISSION HISTORY AND PHYSICIAL CHIEF COMPLAINT: HISTORY OF PRESENT ILLNESS: REVIEW OF SYSTEMS: ACTIVE PROBLEMS: (1) GERD (gastroesophageal reflux disease) ([id number]) MEDICATIONS: Active Inpt Meds: None Active PRN Meds: None One Time Meds: None Active IV Meds: Lactated Ringers Infusion 1,000 mL (LR 1,000 mL) Start: 12/27/23 10:32:00 EDT, Rate: 50 mL/hr, 12/27/23 10:32:00 EDT ALLERGIES: (1) Contrast dye FAMILY HISTORY: SOCIAL HISTORY: PHYSICAL EXAM: VITALS: ZakognEskqABZwvavGPUxT6LPK0GhbmAi(kg) 12/26 10:3436--117619NS54/10 56.8 24 Hr Tmax: 36 at 12/26 [...] YADIEL ROBERSON MD on 12/27/2023 11:01 AM [facility]06-10-2024 Anesthesiology Consult note Patient: FEI ROGERS Age: [...] selected or recorded. Procedure history: Hand surgery ([id number]). 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 Ankle ([id number]). Comments: 12/27/2023 10:45 EDT - Archana Hawthorne [...] Weight Lbs 125 lb Weight Method Stated [place] Body Weight 63.85 kg BSA Admission 1.64 [...] Surgeon SN - CAt - Role Performed Leave Coordinator 1 SN - CAt - Role Performed Clinical Engineer SN - CAt - Role Performed CONDITIONING ROOM WORKER 12/27/2023 10:51 EDT Lactated Ringers Injection [...] EDT Designated Person #1 We May Share [facility] Designated Person #1 We May Share [facility] Designated Person #1 Relationship Spouse Privacy Restrictions Requested None Height 167.69 cm Height in inches 66 inch(es) Admission Weight 56.8 kg Weight Lbs 125 lb Weight Method Stated [place] Body Weight 63.85 kg BSA Admission 1.64 [...] ethnicity Skin Integrity Intact Mucous Membrane Color [place] Skin Moisture General Dry Neurological Symptoms Patient [...] Method Explanation, Printed materials Preferred Spoken Language Portuguese Preferred Written Language Portuguese Information Given by Patient Patient's Current Physicians [...] Allergies Yes Anesthesia Extension Set Applied Yes Credit Resolution Representative On Yes Consent Form Signed Yes Patient [...] Intake 12/26/2023 17:30 . Assessment and Plan [place] Society of Anesthesiologists (ASA) physical status classification: Class II. Anesthetic Preoperative Plan Premedication: intravenous. Anesthetic technique: MAC. Induction: intravenously. Maintenance airway: Mask. Risks discussed: nausea, vomiting, headache, sore throat, dental injury, hypotension, allergic reaction, serious complications. Informed consent: signed by patient. Digitally Signed by JIAN RIVERA on 12/27/2023 10:58 AM [facility]11-11-2021 NotePatient Outreach (NETNAV) FEI ROGERS ([id number]) 1935 M Date Time Provider Department 05/29/21 [...] Payer: Payor: [employer] MEDICARE [employer]VANTAGE / Plan[place] / Product Type: HMO / Care Gap Reviewed:: Reminder: Reminder note to check Health Maintenance for items below Health Maintenance items due: COVID-19 VACCINE(1) Never done SHINGRIX VACCINE(1 of 2) Never done INFLUENZA(1) due on 03/19/2021 Advanced Directives Completed: Have you ever planned for future healthcare decisions with a power of woodworking bench carpenter, living will, or advance directives? No. Please [...] of colon polyps [Z86.010] 04/20/2016 Atherosclerosis of [place] artery of both lower *04/21/2017 Secondary hyperparathyroidism (HCC) [N25.81] 11/01/2017 11/15/2018 Disorder of the skin and subcutaneous tissue, u*04/05/2017 04/25/2018 Encounter Status:Closed by JUSTINE [facility] [place] HEALTH NAVIGATOR, ALMAZ Wallace on 05/29/21[facility]11-11-2021 NoteHNO ID: [id number] Author: Almazmynor Fowler Population Health Navigedson Service: [...] Payer: Payor: [employer]ARE ADVANTAGE / Plan: [place] MED[place] / Product Type: HMO / Care Gap Reviewed:: Reminder: Reminder note to check Health Maintenance for items below Health Maintenance items due: COVID-19 VACCINE(1) Never done SHINGRIX VACCINE(1 of 2) Never done INFLUENZA(1) due on 03/19/2021 Advanced Directives Completed: Have you ever planned for future healthcare decisions with a power of woodworking bench carpenter, living will, or advance directives? No. Please bring a copy to your next appointment or email to [email or web address] Referrals: N/A Message Sent to Practice: NO Navigation Signature: Almaz Fowler Population Health Navigator May 29, 2021 9:48 [facility]05-05-2021 NoteHNO ID: [id number] Author: Jian Ward MD Service: ? Author Type: Physician Type: Progress Notes Filed: 11/21/2020 8:15 AM Note Text: This note was created using Growishriter. Subjective Patient presents with: Edema Fei Rogers is a 85 year old male here with his spouse for new onset right leg edema, painless. He was not on any new medication. Not mentioned was the fact that he was just discharged from [facility] after syncope, traumatic subarachnoid hemorrhage, and [...] (Hcc) History of Colon Polyps Atherosclerosis of [place] Artery of Both Lower Extremities With Intermittent [...] ICD9: V58.89, ICD10: S06.339D Improved. Jian Ward, [facility]04-27-2021 NoteDepartment of Trauma / Critical Care Discharge [...] in 2 weeks. Consultations: Neurosurgery, PT, OT, nursing admin PCP: No primary care provider on file. [...] GENDER: M BP: 145 / 76 LOCATION: [facility] PATIENT Inpatient main STATUS: *ORDERING PHYSICIAN: * Ady DerasREADING PHYSICIAN: * Alexandro, *CORPORATE PARALEGAL: * Tessa Victoria Gabriela CCT INDICATIONS: Syncopal [...] to opacify the ch (more content not included)...[facility]04-27-2021 History of Present illness Narrative* Bernice Roberts, [...] SAD and frontal contusion. Once admitted to [facility], Neurosurgery consulted for SAH, repeating head CT and ordered MRI brain/MRI head and neck. Pt passed swallow eval and has been ordered Cardiac diet. Geriatrics also consulted, ADMINISTRATIVE PROJECT COORDINATOR pt comes from home with and independent with ADLs. Appears per chart that pt has been tolerating PO diet/intake. MD in room with pt at time of RD visit. Malnutrition Assessment: Malnutrition Status: Insufficient data(? adequacy of PO intake ADMINISTRATIVE PROJECT COORDINATOR, does appear since admit pt has tolerated, limited weight hx in chart to review, noted advanced age, RD unable to conduct interview this date, monitor as able) Estimated Daily Nutrient Needs: Energy (kcal): 4780-4044 kcal/day; Weight Used for Energy Requirements: [place] Protein (g): 52-65 gm protein/day; Weight Used for Protein Requirements: [place](0.8-1.0 gm protein/kg) Fluid (ml/day): per MD; Method Used for Fluid Requirements: Nutrition Related Findings: +BS; No edema indicated; medications include PPI, statin; labs: BUN (34), Creatinine (1.48) Wounds: (+abrasions; Vik 23) Current Nutrition Therapies: DIET CARDIAC; Anthropometric Measures: Height: 5' 6 (167.6 cm)(per chart) Admission Body Weight: 135 lb (61.2 kg)(bedscale) Usual Body Weight: (per EPIC (limited): 11/04/20- 139#) [place] Body Weight: 142 lbs; % [place] Body Weight BMI: 21.9 Adjusted Body Weight: [...] Planning: Too soon to determine Contact: pager [phone] * Latoya Corona SLP - 11/11/2020 11:06 AM EDT Speech Language Pathology Facility/Department: [facility] ICU T2 CLINICAL BEDSIDE SWALLOW EVALUATION [...] if any concerns arise. Treatment Plan Requires CONSULTING PROJECT DIRECTOR Intervention: No Duration/Frequency of Treatment: na Recommended Diet and Intervention Diet Solids Recommendation: Regular Liquid Consistency Recommendation: Thin Recommended Form of Meds: PO General Chart Reviewed: Yes Behavior/Cognition: Alert;Cooperative;Pleasant mood O2 Device: None (Room air) Communication Observation: Functional Follows Directions: Simple(Patient is JACKSON) Dentition: Dentures top;Dentures bottom Patient Positioning: Upright in chair Baseline Vocal Quality: Normal Volitional Cough: Strong Prior Dysphagia History: No prior MBSS in [facility]. Patient denies dysphagia. Spouse is present and reports patient is at baseline. Consistencies Administered: Lemon Ice;Reg solid;Thin - teaspoon;Thin - straw;Dysphagia Pureed (Dysphagia I) Vision/Hearing JACKSON - does not have his DOHERTY available Oral Motor Deficits Oral/Motor Oral Motor: Within functional limits Oral Phase Dysfunction Oral Phase Oral Phase: WFL Indicators of Pharyngeal Phase Dysfunction Pharyngeal Phase Pharyngeal Phase: WFL Education Patient Education: None required. Safety Devices in place: Yes Therapy Time CONSULTING PROJECT DIRECTOR Individual Minutes Time In: 1030 Time Out: 1045 Minutes: 15 CONSULTING PROJECT DIRECTOR Total Treatment Time Total Treatment Time: 15 Latoya Corona MS, CCC/ CONSULTING PROJECT DIRECTOR 11/11/2020 11:06 AM An N95 mask, a full face shield and gloves were worn throughout this session. * Justo Argueta - 11/11/2020 8:41 AM EDT Physical Therapy Facility/Department: [facility] ICU T2 Initial Assessment NAME: Fei Rogers : 1935 Date of Service: 11/11/2020 Discharge Recommendations: Home independently Assessment Body structures, Functions, Activity limitations: Decreased balance;Decreased cognition Assessment: pt is an 85y.o. M that was admitted to [facility] after experiencing a syncope episode and [...] Ambulation Assistance: Independent Transfer Assistance: Independent Active Clinical Exercise Physiologist: Yes Mode of Transportation: Car Cognition Cognition [...] Plan of Care supervision is transferred to [facility] Re[facility] Department Physical Therapist. Goals and/or treatment [...] kg) Date 11/11/20 0000 - 11/11/202358 Shift [id number] [id number] 6143-4024 24 Hour Total INTAKE Shift Total(mL/kg) OUTPUT [...] Tomography ACCESSION EXAM DATE/TIME PROCEDURE ORDERING PROVIDER [id number] 11/11/2020 04:[address] Head or Brain w/o MD AUGUSTA, ADY Contrast CPT code 58263 Reason For Exam (CT Head or Brain [...] Computed Tomography Report Report Dictated on Workstation: [facility]-REMOTE --- Final --- Dictated: 11/11/2020 5:41 [...] MD Division of Trauma Department of Surgery [facility] Pager: [phone] ~~~~~~~~~~~~~~~~~~~~~~~~~~~~~~~~~~~~~~~~~~~~~~~~~~~~~~~~~~~~~ This note may have been dictated using [employer] Medical Practice Edition 2.6 and/or gamesGRABR Voice Recognition Feature. The document was proofread; however, unrecognized voice recognition equipment engineer errors may be present. * Justine Melendez, OT - 11/11/2020 7:17 AM EDT Occupational Therapy OT order received. Will put pt on schedule for OT eval. Justine Melendez OTR/L documented in this [employer] Work Phone: 1(118) 178-395304-19-2021 NoteHNO ID: [id number] Author: Marcos Mccann III Service: ? Author [...] Anemia of renal disease - Atherosclerosis of [place] artery of both lower extremities with intermittent [...] Level: 4 - Moderate Marcos Mccann III [facility]04-06-2021 NotePatient Outreach (INTMMN) FEI ROGERS ([id number]) 1935 M Date Time Provider Department 10/22/20 [...] dysfunction Date Reviewed: 04/30/2020 Reviewed by: Deloris ([facility]) DAVID Mccormick - Fully Assessed Visit Diagnosis:Medication management [Z79.899] Order(s):HGB A1C [MCIBM0X] Order #: [id number] FUTURE CBC [SQCBC] Order #: [id number] FUTURE Prescriptions as of 10/22/2020 Sig: AMLODIPINE [...] of colon polyps [Z86.010] 04/20/2016 Atherosclerosis of [place] artery of both lower *04/21/2017 Secondary hyperparathyroidism (HCC) [N25.81] 11/01/2017 11/15/2018 Disorder of the skin and subcutaneous tissue, u*04/05/2017 04/25/2018 Encounter Status:Closed by PATRIZIA ROGERS on 10/25/20[facility] 08-09-2020 NotePatient Outreach (COOCC3) FEI ROGERS ([id number]) 1935 M Date Time Provider Department 08/09/20 [...] dysfunction Date Reviewed: 04/30/2020 Reviewed by: Deloris ([facility]) DAVID Mccormick - Fully Assessed Order(s):SARS-COVID VACCINE 1ST DOSE APPT [[id number]] Order #: [id number] FUTURE Prescriptions as of 08/09/2020 Sig: AMLODIPINE [...] of colon polyps [Z86.010] 04/20/2016 Atherosclerosis of [place] sal[place] artery of both lower *04/21/2017 Secondary hyperparathyroidism (HCC) [N25.81] 11/01/2017 11/15/2018 Disorder of the skin and subcutaneous tissue, u*04/05/2017 04/25/2018 Letter Text Encounter Status:Closed by PATRIZIA ROGERS on 08/12/20[facility] Evaluation note* Diagnosis Syncope and collapse- Primary Subarachnoid hematoma, with loss of consciousness of 30 minutes or less, initial encounter ([facility]) documented in this encounter [facility] Work Phone: Hospital course Narrative No data available for this section [facility] Discharge instructions* Attachments The following attachments cannot be sent through Care Everywhere. * Head Injury: Closed: General Info (Portuguese) * Fainting (Portuguese) * Subarachnoid Hemorrhage: General Info (Portuguese) [facility] Work Phone: Reason for Referral Status Reason Specialty Diagnoses / Procedures Referred By Contact Referred To Contact [facility] Required Neurology Diagnoses Syncope and collapse Subarachnoid hematoma, with loss of consciousness of 30 minutes or less, initial encounter ([facility]) Ayd Fang, DO [facility] [place] [address] [facility]fl [facility] [address] [place] [id number] Scheduling Instructions [facility] Neurology - [address] [address] Fax: Advance Directives No Advanced Directives Records [...] section and content) DATE CREATED AUTHOR 11/21/2020 [facility] DATE CREATED AUTHOR AUTHOR'S ORGANIZ ATION 07/07/2021 [facility] DATE CREATED AUTHOR AUTHOR'S ORGANIZ ATION 02/09/2024 [facility] o[facility]ation ([place]) Patient Care team informatio n (unrecognized section and content) Care Team Personnel Name: AMANDA DAVIS DO Member Role: Primary Care Physician Address: Address: [address] [place] [address] Care Team Related Persons Name: MIGUEL A ROGERS Care Team Personnel Name: AMANDA DAVIS DO Member Role: Primary Care Physician Address: Address: [address] [place] [address] Care Team Related Persons Name: MIGUEL A ROGERS Care Team Personnel Name: AMANDA DAVIS DO Member Role: Primary Care Physician Address: Address: [address] [place] [address] Care Team Related Persons Name: MIGUEL A [...] BE BASED ON THE PRIMARY CLINICAL RECORDS. [facility] [employer] [facility]. provides no warranty or guarantee of the accuracy or completeness of information in this document.
[2024-05-07 18:18] LABS: Magnesium 1.9 mg/dL (1.6-2.6)
[2024-05-07] MEDS: Azithromycin 500 MG in Dextrose 5%-Water (250mL Bag) 250 ML 250 MG IV (18:54)
[2024-05-07 19:39] LABS: Troponin-I HS 109 pg/mL (3.0-78.0)
[2024-05-07] MEDS: Ipratropium/Albuterol Sulfate 3 ML AMPUL.NEB INHALATION (20:24)
[2024-05-07] MEDS: guaiFENesin 1,200 MG Tablet 1200 MG PO (20:58)
[2024-05-07] MEDS: Metoprolol Tartrate 25 MG Tablet PO (20:58)
[2024-05-07] MEDS: Pantoprazole Sodium 20 MG Tablet PO (20:59)
[2024-05-07] MEDS: Atorvastatin Calcium 20 MG Tablet PO (21:01)
[2024-05-07] MEDS: 0.9% Saline Lock 10 ML Syringe IV (21:08)
[2024-05-07] MEDS: 0.9% Normal Saline (1000mL) 1,000 ML 100 ML IV (21:11)
[2024-05-07 22:32] LABS: Troponin-I HS 103 pg/mL (3.0-78.0)
[2024-05-08] VITALS (24 sets, daily range): BP systolic 100–154; BP diastolic 51–105; PULSE 80–158; RESP 16–27; TEMP 36.7–36.8; O2SAT 57–94; BMI 23.2
[2024-05-08] MEDS: 0.9% Saline Lock 10 ML Syringe IV ×5 (01:03→22:01)
[2024-05-08] MEDS: Furosemide 40 MG/4 ML Vial IV ×3 (01:03→17:52)
[2024-05-08] MEDS: Ipratropium/Albuterol Sulfate 3 ML AMPUL.NEB INHALATION ×4 (01:13→19:30)
[2024-05-08 01:38] LABS: Allen Test Positive; Base Excess 5 mmol/L (-2 to +2); Bicarbonate 29.1 mmol/L (22-26); Blood Gas Specimen Type ART; Mode Not entered; O2 Delivery Device Cannula; PO2 62 mmHG (75-100); SITE L Radial; SO2 92 % (95-99); Total Carbon Dioxide 30 mmol/L; pCO2 41.9 mmHg (35-45); pH 7.45 (7.35-7.45)
[2024-05-08 05:37] LABS: Blood Gas Specimen Type VEN; O2 Delivery Device airvo; SITE Not entered; VBG BASE EXCESS 5 mmol/L (-1.0-3.5); VBG Bicarbonate 29 mmol/L (22-26); VBG PO2 40 mmHg (25-40); VBG SO2 78 % (50-70); VBG TCO2 30 mmol/L (23-33); VBG pCO2 39.6 mmHg (41-51); VBG pH 7.47 (7.32-7.42)
[2024-05-08 05:46] LABS: Absolute Lymphocyte Count 0.49 X10^3/uL (0.83-4.51); Absolute Neutrophil Count 12.9 X10^3/uL (2.0-7.7); Basophil# 0.02 X10^3/uL; Basophil% 0.1 % (0-1); Eosinophil# 0.01 X10^3/uL; Eosinophils% 0.1 % (0-5); Lymphocyte # 0.49 X10^3/ul (0.83-4.51); Lymphocyte % 3.2 % (19-41); Mean Corp Hgb Conc 32.4 g/dL (32-36); Mean Corpuscular Hgb 30.6 pg (27.0-32.0); Mean Corpuscular Volume 94.7 fL (80-94); Mean Platelet Vol. 10.6 fl (6.2-12.0); Monocyte# 1.74 X10^3/uL; Monocyte% 11.4 % (0-10); NRBC Flagged by Analyzer 0 % (0-5); Neutrophil # 12.91 X10^3/uL (2.7-7.7); Neutrophil % 84.7 % (47-70); POSITIVE DIFFERENTIAL YES; Platelet Count 222 K/mm3 (150-450); RBC Distribution Width SD 45.6 fl (35.1-43.9); Red Blood Count 3.59 M/mm3 (4.6-6.2); White Blood Count 15.2 K/mm3 (4.4-11.0)
[2024-05-08 05:47] LABS: Differential Indicated SCAN CRITERIA MET
--- NOTE | 2024-05-08 05:55 | NM_ITS ---
NUCLEAR MEDICINE VENTILATION AND PERFUSION LUNG SCAN CLINICAL: Male, 88 years old. SOB, D-DIMER high -- R/O PE TECHNIQUE: The patient was administered 9.5 mCi of Tc MAA followed by a perfusion lung scan. The patient was administered 43.8 mCi of Tc DTPA aerosol followed by a ventilation lung scan. Comparison made to prior chest radiograph dated May 07, 2024. COMPARISON STUDIES : NM - None. CR - Not available for review at this time. CT - Not available for review at this time. MR - Not available for review at this time. FINDINGS: The pulmonary perfusion study demonstrates uniform perfusion throughout both lung gomez. There are no demonstrated segmental or subsegmental perfusion defects. Slight aggregate clumping of the radiopharmaceuticals in the airways demonstrated on both the ventilation and perfusion scan with disc does not represent abnormalities indicating pulmonary artery embolism. The ventilation study demonstrates uniform ventilation throughout both lung gomez. There are no segmental or subsegmental ventilation abnormalities. NM/Lung Scan Vent/Perf IMPRESSION: 1. Negative 99m Tc MAA pulmonary perfusion Tc DTPA aerosol ventilation imaging survey, according to revised PIOPED interpretive criteria. Perfusion-only modified PIOPED II criteria The modified PIOPED II criteria have been adapted for perfusion scintigraphy (i.e. no ventilation scan) 4,5. In this scheme, the presence of a match or mismatch is determined by comparing the perfusion scan with the chest radiograph rather than a ventilation scan. A perfusion defect without a corresponding radiographic opacity is considered mismatched. In addition, the criterion of multiple matched ventilation and perfusion defects with normal radiograph has been removed from the category of pulmonary embolism absent. Perfusion-only interpretation reduces both the specificity and the proportion of nondiagnostic readings compared to ventilation and perfusion using modified PIOPED II criteria 5. Pulmonary embolism present (high probability) two or more large mismatched segmental perfusion defects or the arithmetic equivalent of moderate and/or large defects Nondiagnostic (low or intermediate probability) all other findings not falling into the pulmonary embolism present or absent categories Pulmonary embolism absent (normal or very low probability) no perfusion defects nonsegmental perfusion defects (e.g. pleural effusion at the costophrenic angle, cardiomegaly, elevated hemidiaphragm, hilar enlargement, linear atelectasis), without other perfusion defects in either lung perfusion defects smaller than corresponding chest radiographic opacity one to three small subsegmental perfusion defects solitary matched defect in a single segment in the middle or upper lung zone stripe sign (a stripe of perfusion peripheral to a defect, best seen on tangential view) large pleural effusion (occupying one-third or more of the pleural cavity), without other perfusion defects in either lung Electronically Signed: Frank Alvarez MD at 11:56 EDT ,
--- NOTE | 2024-05-08 05:55 | VDLE_ITS ---
Reason For Study: Elevated D-dimer RIGHT LEFT GSV is normal. GSV is normal. CFV is compressible, spontaneous, phasic, CFV is compressible, spontaneous, phasic, competent and demonstrates normal competent, and demonstrates normal augmentation. augmentation. FV is compressible, spontaneous, phasic, FV is compressible, spontaneous, phasic, competent and demonstrates normal competent and demonstrates normal augmentation. augmentation. POP V is compressible, spontaneous, phasic, POP V is compressible, spontaneous, phasic, competent and demonstrates normal competent and demonstrates normal augmentation. augmentation. T/P Trunk is compressible. T/P Trunk is compressible. PTV is compressible. PTV is compressible. RT PerV is compressible. LT PerV is compressible. Procedure This is a venous duplex using B-mode, color flow and spectral Doppler. Exam performed portable in patient room. A preliminary report was called and/or faxed to status controller. VL/Venous Duplex US - [place] Extrem Interpretation Summary Deep veins of the lower extremities are bilaterally patent and compressible seg mentally. There is no evidence of deep vein thrombosis on either side. Valvular competence appears in tact within the proximal deep venous systems bilaterally. The great saphenous veins appear bila terally patent and compressible segmentally. Ordering Physician: Len Harris Referring Physician: Gladis Castro M.D. Performed By: Meg Carrillo RVT
[2024-05-08 06:11] LABS: Anion Gap 7 (5-15); BUN 52 mg/dL (7-18); BUN/Creat Ratio 23.6 RATIO (10-20); Calcium,Total 9.2 mg/dL (8.5-10.1); Chloride 98 mmol/L (98-107); EST Glomerular Filtration Rate 30 mL/min (>60); Est Glom Filt Rate - Afr Amer 37 mL/min (>60); Estimated Creatinine Clearance 20.58 ml/min; Glucose 163 mg/dL (74-106); Potassium 3.3 mmol/L (3.5-5.1); Sodium Level 134 mmol/L (136-145)
[2024-05-08 06:37] LABS: Differential Comment SCANNED
[2024-05-08 09:33] LABS: Pathologist Review Reviewed
[2024-05-08 09:34] LABS: Pathologist Review Reviewed
[2024-05-08] MEDS: Aspirin E.C. 81 MG Tablet PO (09:40)
[2024-05-08] MEDS: hydroCHLOROthiazide 25 MG Tablet PO (09:40)
[2024-05-08] MEDS: Pantoprazole Sodium 20 MG Tablet PO ×2 (09:41→21:54)
[2024-05-08] MEDS: guaiFENesin 1,200 MG Tablet 1200 MG PO (09:41)
[2024-05-08] MEDS: Cholecalciferol (VIT D3) 25 MCG TABLET (1,000 UNITS) PO (09:41)
[2024-05-08] MEDS: amLODIPine 10 MG Tablet PO (09:41)
[2024-05-08] MEDS: Metoprolol Tartrate 25 MG Tablet PO ×2 (09:41→20:32)
[2024-05-08] MEDS: Ceftriaxone 2 GM in 0.9% Normal Saline (50mL MB+) 50 ML IV (10:40)
[2024-05-08] MEDS: Azithromycin 500 MG in Dextrose 5%-Water (250mL Bag) 250 ML 250 MG IV (11:23)
--- NOTE | 2024-05-08 11:31 | ECHOD_ITS ---
Reason For Study: CHF Procedure This was a 2D Doppler, Color Flow transthoracic echocardiogram. Exam performed portable in patient room. Left Ventricle Normal LV size. The left ventricular ejection fraction is 35 %. Stage 2 diastolic dysfunction. There is moderate global hypokinesis of the left ventricle. Right Ventricle Normal RV size. Normal systolic function. Atria The left atrium is mildly enlarged. Normal right atrium. Mitral Valve There is moderate mitral annular calcification. Mild-Moderate (1-2+) eccentric mitral valve insufficiency. Tricuspid Valve Normal tricuspid valve. Mild to moderate (1-2+) tricuspid valve insufficiency. Pulmonary artery systolic pressure is 50 mmHg. Aortic Valve Trisinus/trileaflet aortic valve. Mild focal aortic valve calcification. Mild (1+) aortic valve insufficiency. Pulmonic Valve Normal pulmonic valve. Great Vessels Calcified aortic root. The pulmonary artery is normal size. and partially collapses. Pericardium/Pleural No pericardial effusion. MMode/2D Measurements & Calculations LVIDd: 5.1 cm IVSd: 1.1 cm LVOT diam: 1.8 cm LVIDs: 3.5 cm LVPWd: 1.1 cm LVOT area: 2.7 cm2 RVDd: 3.6 cm FS: 32.8 % Ao root diam: 3.4 cm asc Aorta Diam: 3.4 cm LAV(MOD-bp): 67.7 ml LA dimension: 3.9 cm LAV(MOD-bp) Indexed: 39.9 ml/m2 LAV(MOD-sp2): 56.5 ml LAV(MOD-sp4): 68.6 ml TAPSE: 1.6 cm LA A4 area: 23.2 cm2 RA A4 area: 17.3 cm2 Time Measurements MV dec time: 0.19 sec Doppler Measurements & Calculations MV E max deejay: 139.0 cm/sec Lat Peak E' Deejay: 14.8 cm/sec Med Peak E' Deejay: 8.1 cm/sec MV A max deejay: 98.7 cm/sec E/E' lat: 9.4 E/E' med: 17.1 MV E/A: 1.4 MV V2 max: 140.0 cm/sec MV P1/2t max deejay: 141.6 cm/sec Ao V2 max: 160.8 cm/sec MV max P.8 mmHg MV P1/2t: 60.0 msec Ao max P.4 mmHg MV V2 mean: 80.8 cm/sec MV dec slope: 691.0 cm/sec2 Ao V2 mean: 115.5 cm/sec MV mean P.1 mmHg Ao mean P.0 mmHg MV V2 VTI: 37.6 cm MVA(P1/2t): 3.7 cm2 Ao V2 VTI: 31.6 cm MVA(VTI): 1.5 cm2 AV (velocity ratio): 0.67 MANDO(I,D): 1.8 cm2 MANDO(V,D): 1.5 cm2 LV V1 max: 93.1 cm/sec MR max deejay: 459.1 cm/sec SV(LVOT): 56.1 ml LV V1 max P.6 mmHg MR max P.3 mmHg LV V1 mean P.0 mmHg LV V1 mean: 67.3 cm/sec LV V1 VTI: 21.1 cm PA V2 max: 111.3 cm/sec TR max deejay: 335.1 cm/sec PA max PG (full): 1.5 mmHg TR max P.9 mmHg ECHO/Echo Complete Interpretation Summary The left ventricular ejection fraction is 35 %. Normal LV size. Stage 2 diastolic dysfunction. Pulmonary artery systolic pressure is 50 mmHg. Ordering Physician: Jennifer Stinson Performed By: Andrzej Starr and Student
--- NOTE | 2024-05-08 11:31 | PCM.PN.HOSP ---
Reason for Visit Reason for Visit: Shortness of breath Subjective Subjective Patient reported having slowly worsening shortness of breath. Has no known history of heart failure but did complain of some mild bilateral lower extremity swelling. They did report that it was thought to be related to his amlodipine. Patient still requiring Airvo. Denies any coughing or sputum production. Objective Data Objective Data Vital Signs: Vital Signs Temp Pulse Resp BP Pulse Ox O2 Del Method O2 Flow Rate 98.3 F 87 18 147/55 H 92 Airvo 50 05/08/24 09:38 05/08/24 09:41 05/08/24 09:38 05/08/24 09:38 05/08/24 09:38 05/08/24 09:38 05/08/24 09:38 FiO2 57 05/08/24 09:38 Oxygen Flow Rate (L/min) 50 Oxygen Delivery Method Airvo Weight: 63.3 kg Body Mass Index (BMI) 23.2 Intake & Output: Intake and Output for Last 24 Hours 05/06/24 05/07/24 05/08/24 23:59 23:59 23:59 Intake Total 580 / 580 50 / 50 Output Total 200 / 200 575 / 575 Balance 380 / 380 -525 / -525 Lab / Micro Data 05/08/24 05:26 05/08/24 05:26 Labs: Laboratory Results - last 24 hr 05/07/24 15:10: WBC 14.6 H, RBC 3.58 L, Hgb 11.2 L, Hct 33.5 L, MCV 93.6, MCH 31.3, MCHC 33.4, RDW Std Deviation 45.3 H, RDW Coeff of [place] 13.2, Plt Count 222, MPV 10.9, Immature Gran % (Auto) 0.600, Neut % (Auto) 82.0 H, Lymph % (Auto) 2.[address] L, [place] % (Auto) 14.3 H, Eos % (Auto) 0.0, Baso % (Auto) 0.2, Absolute Neuts (auto) 12.0 H, Absolute Lymphs (auto) 0.43 L, Nucleated RBC % 0, Differential Comment SEE COMMENTS, Diff Path Review Reviewed, Platelet Estimate ADEQUATE, RBC Morphology N CHROM, Anisocytosis RARE, Macrocytosis RARE, Ovalocytes RARE, D-Dimer Quant (PE/DVT) 2.16 H*, Sodium 136, Potassium 3.8, Chloride 99, Carbon Dioxide 28.0, Anion Gap 9, BUN 56 H, Creatinine 2.19 H, Estim Creat Clear Calc 20.67, Est GFR (MDRD) Af Amer 37 L, Est GFR (MDRD) Non-Af 30 L, BUN/Creatinine Ratio 25.6 H, Glucose 173 H, Calcium 9.3, Magnesium 1.9, Troponin I High Sens 100 H, B-Natriuretic Peptide 1783.5 H 05/07/24 19:07: Troponin I High Sens 109 H 05/07/24 21:22: Troponin I High Sens 103 H 05/08/24 05:26: WBC 15.2 H, RBC 3.59 L, Hgb 11.0 L, Hct 34.0 L, MCV 94.7 H, MCH 30.6, MCHC 32.4, RDW Std Deviation 45.6 H, RDW Coeff of [place] 13.0, Plt Count 222, MPV 10.6, Immature Gran % (Auto) 0.500, Neut % (Auto) 84.7 H, Lymph % (Auto) 3.[address], [place] % (Auto) 11.4 H, Eos % (Auto) 0.1, Baso % (Auto) 0.1, Absolute Neuts (auto) 12.9 H, Absolute Lymphs (auto) 0.49 L, Nucleated RBC % 0, Differential Comment SCANNED, Diff Path Review Reviewed, Sodium 134 L, Potassium 3.3 L, Chloride 98, Carbon Dioxide 29.0, Anion Gap 7, BUN 52 H, Creatinine 2.20 H, Estim Creat Clear Calc 20.58, Est GFR (MDRD) Af Amer 37 L, Est GFR (MDRD) Non-Af 30 L, BUN/Creatinine Ratio 23.6 H, Glucose 163 H, Calcium 9.2, B-Natriuretic Peptide 1435.0 H Micro: Microbiology 05/07/24 21:00 Nasal Secretion MRSA (PCR) - Final 05/07/24 20:07 Mucosa - Nasopharyngeal Respiratory Panel (PCR) - Final 05/07/24 21:00 Urine, Clean Catch Legionella Antigen - Final 05/07/24 21:00 Urine, Clean Catch Streptococcus pneumoniae Antigen (M - Final 05/07/24 15:38 Mucosa - Nose SARS-CoV-2, Influenza & RSV (PCR) - Final ABG Data ABG results: ABG 05/08/24 05/08/24 01:31 05:33 Specimen Type ART TATE Sample Site L Radial Not entered pH 7.45 Bicarbonate Actual 29.1 H Total CO2 30 Base Excess 5 H O2 Saturation 92 L O2 % 10.0 57.0 ABG pCO2 41.9 ABG pO2 62 L Giovanni Test Positive VBG pH 7.47 H VBG pO2 40 VBG HCO3 29 H VBG Total CO2 30 VBG O2 Sat (Calc) 78 H VBG Base Excess 5 H POC Mix VBG pCO2 Pt Tmp 39.6 L O2 Delivery Device Cannula airvo Vent Mode Not entered Radiography Diagnostic Testing: Radiology Impression Chest X-Ray 05/07/24 16:20 IMPRESSION: Bibasilar infiltrates and small pleural effusions. Findings consistent with infection. Recommend short-term follow-up to complete resolution. Electronically Signed: Francois Adams MD at 16:34 EDT , Physical Exam Const alert, oriented x3, no apparent distress, average body habitus and well nourished; Negative for healthy appearing Constitutional Narrative: Elderly, white male, sitting up in bed with family at bedside, interacts well and answers questions appropriately, does not have any dyspnea with conversation, no coughing at the time of my evaluation HEENT head/scalp atraumatic and moist oral mucous membranes HEENT Narrative: Mallampati 2, no thrush Head and Scalp: normocephalic Eyes EOMs intact bilaterally and conjunctivae normal Eyes Narrative: No scleral icterus Neck no lymphadenopathy and supple Neck Narrative: Mild hepatojugular reflux Resp normal respiratory effort, no retractions and no use of accessory muscles Resp Narrative: Diminished at bases bilaterally with few scattered crackles at the midlung bilaterally, appears comfortable on Airvo Auscultation: crackles; Negative for rhonchi or wheezes Cardio regular rate, regular rhythm, S1 normal heart sound, S2 normal heart sound, no murmurs, no rub, no gallops and no clicks GI normal to inspection, nondistended, normoactive bowel sounds, soft to palpation and non-tender Extremity Extremity Narrative: Trace bilateral lower extremity edema right slightly worse than left, no clubbing or cyanosis Skin no jaundice, no petechiae and no mottling Skin Narrative: No significant abnormalities noted Neuro oriented x3, moves all extremities and no focal motor deficits Speech: speech normal Psych affect normal Psych Narrative: Very pleasant, eye contact is good and patient interacts appropriately Assessment & Plan Assessment/Plan (1) Bilateral pneumonia: (2) 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, <= 40%): (3) Acute hypoxic respiratory failure: PLAN: Plan Acute hypoxic respiratory failure secondary to bilateral lower lobe pneumonia and pleural effusions/HFrEF -Seems to be multifactorial -I did get a CT of the chest today which does show bilateral lower lobe infiltrates as well as bilateral effusions -Will continue antibiotics but changed to vancomycin and Zosyn with severity of disease -Strep pneumo and Legionella antigens are negative -MRSA screen is negative however with severity of disease we will go ahead and start vancomycin for the short-term -Respiratory panel is negative/COVID/flu/RSV is negative -Echocardiogram did not it today also shows depressed EF at 35% with stage II diastolic dysfunction and pulmonary systolic pressures of 50 mmHg -Last echocardiogram from 04/19/2023 demonstrated an EF of 60% with moderate eccentric mitral valve insufficiency, mild to moderate aortic valve insufficiency -Add Lasix 40 IV push twice daily -VQ scan is with low probability for PE so we will discontinue therapeutic Lovenox -Consult cardiology -Fluid and sodium restricted diet with low EF -Currently requiring Airvo--> wean as able -If we make no progress with diuretics may need to consider consultation to pulmonary medicine -Check sed rate/CRP -If patient has any further respiratory distress may benefit from positive pressure ventilation with BiPAP due to heart failure but continue Airvo as able -Airvo dose apply about 5 cm of water IPAP Acute HFrEF -This is new with newly depressed EF at 35% and stage II diastolic dysfunction -Patient will not likely tolerate rapid heart rates all that well -Increase beta-gretta to 50 twice daily as we currently have plenty of blood pressure to do so -If blood pressure remains elevated will add hydralazine and isosorbide for goal-directed therapy -SGLT2 inhibitor is going to be contraindicated due to his renal function at baseline -Consult cardiology for assistance -BNP was markedly elevated on presentation -Add sodium and fluid restrictions to cardiac diet D-dimer elevation -VQ scan low probability so we will discontinue therapeutic Lovenox Leukocytosis -Slight upward trend since admission -Will broaden antibiotics with vancomycin and Zosyn -Repeat in a.m. Mild chronic anemia -Hemoglobin is relatively stable -Monitor Hypokalemia -Potassium replacement ordered -Repeat lab in a.m. CKD stage IV -Serum creatinine is relatively close to baseline -Most recently creatinine from the end of March has been between 2 and 2.5 -Currently 2.2 -May be cardiorenal -Diuresis as above -Monitor renal function closely Troponin elevation -Highly suspect related to demand with hypoxia -Only mild elevation -Echocardiogram does not show any specific wall motion abnormality -cardiology consult is pending CAD/essential hypertension/hyperlipidemia -CABG x 5 ORELLANA-LAD, SVG-D1, Sequential SVG-RCA, lateral Cx and LPDA 11/10/2007 -Continue home amlodipine -Continue metoprolol but increase to 50 twice daily -Hold home HCTZ -Continue home aspirin Dysphagia/history of Bales's esophagus/esophageal stenosis -Previous dilation with Dr. Carlin -Previous stent placement -Continue PPI -Most recent EGD done on 04/11/2024 -Continue outpatient follow-up with GI unless acute issues develop while hospitalized History of carotid artery stenosis x 2 -History of CEA on the left History of stroke -Continue home aspirin -Continue modifiable risk factor modification DVT prophylaxis -Subcu heparin twice daily CODE STATUS -Full code as verified with patient at the time of my evaluation today is at the bedside as well as daughter at the time of my evaluation. I updated him on data I had present at that time. We are still waiting for echo results and CT of the chest. I did discuss with him that we would know more on 05/09/2024 and could discuss further prognosis and ongoing management at that time. All questions answered and they voiced understanding were appreciative of care. Charges/Coding Visit Charges Inpatient E&M: 04293 Subs Hosp L3
--- NOTE | 2024-05-08 11:40 | CASEMGMT ---
DESTINEE CHAN Face to Face with patient for initial transition planning/care coordination assessment. RN CM introduced self and role at [facility]. Patient sitting in chair, alert and oriented, at bedside. Patient willing to participate in assessment and is able to answer all questions appropriately. Care providers, pharmacy, and demographics verified. Strata: 3 PCP: Matthew Specialists: Yudi, assistant director of nursing; Friend, GI [facility] Insurance: [employer] [facility] Prescription Benefit: yes Living Will/HPOA: yes, Devika Bowman LNOK: Living Arrangements: Patient lives with in a single story home with 3 steps and railing to enter the home. Patient is independent at home. Transportation: self, DME/HHC: Patient has cane at home. No previous HHC or SNF. Will monitor for home oxygen, prefers [employer]. Patient wishes to discharge home, denies need for home health at this time. Patient states he has no further needs or concerns at this time. CM to follow for discharge planning needs that may arise. Disposition Plan: Patient to discharge home with family support and follow-up plans in place. Will monitor for home oxygen. Meg MARIE, RN, CM
[2024-05-08] MEDS: Potassium Chloride Oral Tablet 20 MEQ 60 MEQ PO (12:03)
--- NOTE | 2024-05-08 16:07 | CHAPLAIN ---
Type of Pastoral Visit _x__ Initial Visit ___ Follow-up Visit ___ On-call Visit ___ General Patient Visit ___ Spiritual Assessment ___ Family Conference ___ Bereavement ___ Rapid Response ___ Code Blue ___ Other (describe below) Pastoral Care Referral From _x__ Patient ___ Family ___ Nurse ___ Physician ___ Coding Educator ___ Registered Nurse Behavioral Health ___ Other (describe below) Sacrament/Intervention ___ Active listening ___ Anointing ___ Gnosticism ___ Bereavement ___ Communion ___ Radha exploration ___ _x__ Life review ___ Prayer ___ Reconciliation ___ Sacrament of Sick _x__ Supportive presence ___ Wedding ___ Other (describe below) Pastoral Comments patient is resting comfortably and welcoming; spouse is at bedside; both welcome visit and describe health and life situation; both express thankfulness for presence and support
--- NOTE | 2024-05-08 16:49 | CT_ITS ---
EXAM: CT CHEST WITHOUT INTRAVENOUS CONTRAST CLINICAL INDICATION: abn CXR TECHNIQUE: Helically acquired images were obtained of the chest without intravenous contrast. This CT exam was performed using one or more of the following dose reduction techniques: automated exposure control, adjustment of the mA and/or kV according to patient size, and/or use of iterative reconstruction technique. COMPARISON: 02/28/2024 FINDINGS: LUNGS AND PLEURAL SPACES: There is bilateral lower lobe consolidation compatible with pneumonia. There is minimal lingular opacity. There are moderate bilateral pleural effusions. No mass. HEART: There are moderate coronary artery calcifications. Heart size is normal. No pericardial effusion. MEDIASTINUM: Unremarkable. No mediastinal or hilar adenopathy. Esophagus is unremarkable. No hiatal hernia. THYROID: Unremarkable. No thyroid lesions. BONES/JOINTS: Unremarkable. No suspicious lytic or blastic abnormality. VASCULATURE: See above. SPLEEN: There are multiple splenic granulomas. CT/Chest without Contrast IMPRESSION: Moderate bilateral effusions with bilateral lower lobe consolidation compatible with pneumonia. Electronically Signed: Terrance Gaston MD at 19:25 EDT ,
[2024-05-08 19:24] LABS: Erythrocyte Sedimentation Rate 75 mm/hr (0-20)
--- NOTE | 2024-05-08 21:01 | EKG12_ITS ---
Test Reason : RHYTHM CHANGE Blood Pressure : / mmHG Vent. Rate : 074 BPM Atrial Rate : 074 BPM P-R Int : 112 ms QRS Dur : 142 ms QT Int : 422 ms P-R-T Axes : 038 041 117 degrees QTc Int : 468 ms Sinus rhythm with occasional Premature ventricular complexes Left bundle branch block Abnormal ECG When compared with ECG of 08-MAY-2024 21:17, MANUAL COMPARISON REQUIRED, DATA IS UNCONFIRMED Confirmed by DAYA ALFORD, RON ([id number]), food expeditor ELIUD MARINELLI ([id number]) on 05/11/2024 9:29:30 AM Referred By: PRATIK Confirmed By:RON STAPLETON MD
[2024-05-08] MEDS: Metoprolol Tartrate 5 MG/5 ML Vial IV (21:30)
[2024-05-08 21:40] LABS: Allen Test Positive; Base Excess 6 mmol/L (-2 to +2); Bicarbonate 29.5 mmol/L (22-26); Blood Gas Specimen Type ART; Comment 50L; Mode Not entered; O2 Delivery Device airvo; PO2 57 mmHG (75-100); SITE R Radial; SO2 91 % (95-99); Total Carbon Dioxide 31 mmol/L; pCO2 39.2 mmHg (35-45); pH 7.48 (7.35-7.45)
[2024-05-08] MEDS: Atorvastatin Calcium 20 MG Tablet PO (21:51)
[2024-05-08] MEDS: Heparin Injection (Vial) 5,000 UNIT/ML VIAL 5000 UNIT SC (21:55)
[2024-05-08] MEDS: Diltiazem 125 MG in Dextrose 5%-Water (100mL Bag) 100 ML IV (22:21)
[2024-05-08 22:28] LABS: Magnesium 2.2 mg/dL (1.6-2.6); Phosphorus 3.1 mg/dL (2.5-4.9)
[2024-05-08] MEDS: guaiFENesin 10 ML UDC (200MG/10ML) PO (23:14)
[2024-05-08 23:54] LABS: International Normalized Ratio 1.3; Prothrombin Time (Protime)PT. 16.5 SECONDS (11.7-14.9)
[2024-05-08 23:55] LABS: Partial Thromboplast Time 30.1 Seconds (24.1-36.2)
[2024-05-09] VITALS (23 sets, daily range): BP systolic 121–146; BP diastolic 48–112; PULSE 65–146; RESP 16–27; TEMP 36.4–36.6; O2SAT 90–96; BMI 22.2
[2024-05-09 00:01] LABS: Absolute Lymphocyte Count 0.52 X10^3/uL (0.83-4.51); Absolute Neutrophil Count 11.4 X10^3/uL (2.0-7.7); Basophil# 0.03 X10^3/uL; Basophil% 0.2 % (0-1); Eosinophil# 0.03 X10^3/uL; Eosinophils% 0.2 % (0-5); Hematocrit 33.3 % (40-54); Hemoglobin 10.9 g/dL (13.0-16.5); Lymphocyte # 0.52 X10^3/ul (0.83-4.51); Lymphocyte % 3.7 % (19-41); Mean Corp Hgb Conc 32.7 g/dL (32-36); Mean Corpuscular Hgb 30.6 pg (27.0-32.0); Mean Corpuscular Volume 93.5 fL (80-94); Mean Platelet Vol. 10.7 fl (6.2-12.0); Monocyte# 1.83 X10^3/uL; NRBC Flagged by Analyzer 0 % (0-5); Neutrophil # 11.35 X10^3/uL (2.7-7.7); Neutrophil % 80.8 % (47-70); POSITIVE DIFFERENTIAL YES; Platelet Count 252 K/mm3 (150-450); Red Blood Count 3.56 M/mm3 (4.6-6.2); White Blood Count 14.1 K/mm3 (4.4-11.0)
[2024-05-09 00:04] LABS: Differential Indicated SCAN CRITERIA MET
[2024-05-09] MEDS: 0.9% Saline Lock 10 ML Syringe IV ×3 (00:12→06:15)
[2024-05-09] MEDS: Piperacil/Tazobactam 3.375 GM in 0.9% Normal Saline (50mL MB+) 50 ML IV ×3 (00:25→21:04)
[2024-05-09 00:35] LABS: Differential Comment SCANNED
[2024-05-09] MEDS: HEPARIN/D5w 25,000 UNITS 25,000 UNITS/250 ML IV.SOLN. 10 UNITS CONT INF (00:35)
--- NOTE | 2024-05-09 01:39 | EKG12_ITS ---
Test Reason : HIGH HR Blood Pressure : / mmHG Vent. Rate : 149 BPM Atrial Rate : 000 BPM P-R Int : 000 ms QRS Dur : 128 ms QT Int : 296 ms P-R-T Axes : 000 006 198 degrees QTc Int : 466 ms Critical Test Result: High HR Atrial fibrillation with rapid ventricular response Left bundle branch block Abnormal ECG When compared with ECG of 07-MAY-2024 15:38, MANUAL COMPARISON REQUIRED, DATA IS UNCONFIRMED Confirmed by DAYA ALFORD, RON ([id number]), make up editor ELIUD MARINELLI ([id number]) on 05/11/2024 9:29:39 AM Referred By: LAURA Confirmed By:RON STAPLETON MD
[2024-05-09] MEDS: dilTIAZem CD 240 MG Capsule PO (02:51)
[2024-05-09] MEDS: guaiFENesin 10 ML UDC (200MG/10ML) PO ×3 (06:14→18:20)
[2024-05-09 06:42] LABS: Absolute Lymphocyte Count 0.78 X10^3/uL (0.83-4.51); Absolute Neutrophil Count 8.7 X10^3/uL (2.0-7.7); Basophil# 0.03 X10^3/uL; Basophil% 0.3 % (0-1); Eosinophil# 0.07 X10^3/uL; Eosinophils% 0.6 % (0-5); Hematocrit 32.8 % (40-54); Lymphocyte # 0.78 X10^3/ul (0.83-4.51); Mean Corp Hgb Conc 33.5 g/dL (32-36); Mean Corpuscular Hgb 31.2 pg (27.0-32.0); Mean Corpuscular Volume 92.9 fL (80-94); Mean Platelet Vol. 10.7 fl (6.2-12.0); Monocyte# 1.56 X10^3/uL; NRBC Flagged by Analyzer 0 % (0-5); Neutrophil # 8.65 X10^3/uL (2.7-7.7); Neutrophil % 77.7 % (47-70); POSITIVE DIFFERENTIAL YES; Platelet Count 244 K/mm3 (150-450); RBC Distribution Width CV 13.2 % (11.6-14.6); RBC Distribution Width SD 44.7 fl (35.1-43.9); Red Blood Count 3.53 M/mm3 (4.6-6.2); White Blood Count 11.1 K/mm3 (4.4-11.0)
[2024-05-09 06:52] LABS: Differential Indicated SCAN CRITERIA MET
[2024-05-09 06:58] LABS: Partial Thromboplast Time 63.9 Seconds (24.1-36.2)
[2024-05-09] MEDS: Ipratropium/Albuterol Sulfate 3 ML AMPUL.NEB INHALATION ×3 (07:02→20:34)
[2024-05-09 07:12] LABS: ALB/GLOB Ratio 0.5 RATIO (0.9-2.4); AST(SGOT) 29 U/L (15-37); Alanine Aminotransfer ALT/SGPT 38 U/L (16-61); Albumin, Serum 2.4 g/dL (3.2-5.0); Alkaline Phosphatase 103 U/L (45-117); Anion Gap 8 (5-15); BUN 65 mg/dL (7-18); BUN/Creat Ratio 28.5 RATIO (10-20); Calcium,Total 9.4 mg/dL (8.5-10.1); Chloride 99 mmol/L (98-107); Creatinine, Serum 2.28 mg/dL (0.70-1.30); EST Glomerular Filtration Rate 29 mL/min (>60); Est Glom Filt Rate - Afr Amer 35 mL/min (>60); Estimated Creatinine Clearance 19.57 ml/min; Globulin 4.7 g/dL (2.2-4.2); Glucose 129 mg/dL (74-106); Magnesium 2.2 mg/dL (1.6-2.6); Phosphorus 3.9 mg/dL (2.5-4.9); Potassium 3.2 mmol/L (3.5-5.1); Protein, Total 7.1 g/dL (6.4-8.2); Sodium Level 136 mmol/L (136-145)
[2024-05-09] MEDS: hydrALAZINE 25 MG Tablet PO (09:06)
[2024-05-09] MEDS: amLODIPine 10 MG Tablet PO (09:06)
[2024-05-09] MEDS: Pantoprazole Sodium 20 MG Tablet PO ×2 (09:06→21:00)
[2024-05-09] MEDS: Aspirin E.C. 81 MG Tablet PO (09:06)
[2024-05-09] MEDS: Metoprolol Tartrate 50 MG Tablet PO ×2 (09:07→21:00)
[2024-05-09] MEDS: Cholecalciferol (VIT D3) 25 MCG TABLET (1,000 UNITS) PO (09:07)
[2024-05-09 09:44] LABS: Differential Comment SCANNED; Platelet Estimate ADEQUATE (ADEQ); Red Cell Morphology NORM C+C NORMAL (NORM C&C)
--- NOTE | 2024-05-09 10:53 | ST.MBS ---
Modified Barium Swallow Patient Information Study Date: 05/09/24 Study Time: 09:30 Direct Billable Minutes: 120 Total Minutes procedure & reportin Diagnosis: J96.01 - Acute respiratory failure with hypoxia, J18.9 - PNA Referring Physician: Jennifer Stinson Reason for Referral: Objectively assess swallow function, assess risk for aspiration, and determine recommendations for least restrictive diet textures and compensatory strategies to improve safety of swallow.? Medical History: Greg Bowman, an 88-year-old male, presented to the emergency department with shortness of breath over the past several days, accompanied by chills but no measured fever. He was not on baseline home oxygen and exhibited hypoxia, with an SpO2 of 83% on room air. Denying cough, sinus symptoms, headache, abdominal pain, nausea, or vomiting, he has a history of gastroesophageal reflux disease (GERD), hiatal hernia, dysphagia, and esophageal stricture, having undergone stent placement by Dr. Carlin. His previous EGD revealed long-segment Bales's esophagus, with biopsies showing benign stenosis and metaplastic changes, while a recent chest X-ray indicated bibasilar infiltrates and small pleural effusions, consistent with bilateral pneumonia. Currently, he is admitted to the Progressive Care Unit on 4 L of oxygen, receiving IV ceftriaxone and azithromycin, with a pneumonia infectious workup ordered. Laboratory results show leukocytosis primarily due to neutrophils and lymphopenia. He continues follow-up with Dr. Carlin for his gastrointestinal conditions. Dr. Stinson ordered Modified Barium Swallow Study. Mental Status: WNL Respiratory Status: Oxygenating on O2 via mask ( Before the study, the patient was on Airvo and was then transitioned to 15L high-flow oxygen. According to the nurse, the SpO2 remained at 93% or higher.) Penetration-Aspiration Scale Penetration-Aspiration Scale: OBJECTIVE ASSESSMENT OF SWALLOW FUNCTION (QUANTITATIVE ? PER TRIAL): PENETRATION / ASPIRATION SCALE (VASQUEZ): 1 = does not enter airway 2 = enters airway/above vocal folds/ejected 3 = enters airway/above vocal folds/not ejected 4 = enters airway/contacts vocal folds/ejected 5 = enters airway/contacts vocal folds/not ejected 6 = enters airway/below vocal folds/ejected 7 = enters airway/below vocal folds/not ejected despite effort 8 = enters airway/below vocal folds/no effort VIDEOFLOROSCOPIC SCALE SCORE (VASQUEZ): Grade I = aspiration of material that has penetrated into the laryngeal vestibule, intact cough reflex Grade II = aspiration < 10 % of the bolus, intact cough reflex Grade III = aspiration of < 10 % of the bolus, reduced cough reflex or aspiration of > 10 % of the bolus, intact cough reflex Grade IV = aspiration of > 10 % of the bolus, reduced cough reflex Penetration-Aspiration Scale Score Thin Liquid via teaspoon: Result: 1= does not enter airway Thin Liquid via small single sip: cup: Result: 1= does not enter airway Thin Liquid via small single sip: cup Trial 2: Result: 1= does not enter airway Thin Liquid via sequential sips: cup: Result: 1= does not enter airway Thin Liquid via single sip: straw: Result: 1= does not enter airway [place] Thick Liquid via small single sip: cup: Result: 1= does not enter airway Honey Thick Liquid via small single sip: cup: Result: 1= does not enter airway Pudding via teaspoon: Result: 1= does not enter airway Cookie: Result: 1= does not enter airway Oral Phase Labial Seal: No Labial Escape Tongue Control During Bolus Hold: Posterior escape of greater than half of bolus Bolus Preparation/Mastication: Slow prolonged chewing/mashing with complete recollection Bolus Transport/Lingual Motion: Delayed initiation of tongue motion Oral Residue: Residue collection on oral structures Pharyngeal Phase Initiation of Pharyngeal Swallow: Bolus head in pyriforms Soft Palate Elevation: No bolus between soft palate and pharyngeal wall Laryngeal Elevation: Comp. Superior move thyroid cart w/comp. apprx arytenoid cart-epig pet Anterior Hyoid Excursion: Complete anterior movement Epiglottic Movement: Complete inversion Laryngeal Vestibule Closure at Height of Swallow: Complete; no air/contrast in laryngeal vestibule Pharyngeal Stripping Wave: Present - diminished Pharyngoesophageal Segment Opening: Complete distension and complete duration; no obstruction of flow Tongue Base Retraction: Wide column of contrast between tongue base & post. pharyngeal wall Pharyngeal Residue: Collection of residue within or on pharyngeal structures Esophageal Phase Esophageal Clearance: Esophageal retention w/ retrograde flow below pharyngoesophageal seg. Treatment Strategies Effects of treatment strategies attemped:: liquid wash= ineffective Diagnosis/Impression Diagnosis: esophageal dysphagia r13.14 Impression: Oral phase primarily marked by... -Characterized by slowed mastication and piecemeal deglutition, observed with a Mariia Doone cookie. -Minimal oral residue noted across all consistencies; patient used double swallow independently to clear residues. Pharyngeal phase primarily marked by... -Premature spillage into the vallecula and pyriform sinuses before the pharyngeal swallow onset with thin liquids using a teaspoon. -Similar premature spillage into the vallecula observed with thin liquids from a cup and straw, nectar-thick liquids, and pudding; improved bolus control with honey-thick liquids. -Piecemeal deglutition noted with half of the Mariia Doone cookie, which remained in the vallecula prior to the second swallow; trace pharyngeal residue observed after the second swallow. -Adequate airway closure with all consistencies; no aspiration detected. Esophageal phase primarily marked by... -Esophageal retention observed in the upper and mid esophagus, with retrograde flow. -BOOM MASTER assessed esophageal motility following trials with thin liquids and pudding; liquid wash was ineffective, with immediate retrograde flow noted. -Continued follow-up with gastroenterology recommended. Recommendations Diet: Regular Textures and Thin Liquids Compensatory Strategies: Sitting upright and Remain sitting upright for 30 minutes after PO intake Recommend Repeat Modified Barium Swallow: No Need for Skilled Speech Therapy Services: No Recommended Referrals: GI Consult Education Completed: 1. Described result of evaluation. and 2. Pt understands evaluation & agrees with goals and treatment plan. Status Active ST Patient: Active Contact Information [facility] Speech Therapy:: Florinda Self M.A. [facility] Speech-Language Pathologist [facility] [address] [place] [address] [email or web address] [phone]
--- NOTE | 2024-05-09 11:38 | CON.PCM.CA_ITS ---
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 Continue beta-blockers. Start on SGLT2 inhibitors. Low-dose ACEI. Diuretics. Monitor creatinine. Recommend repeating echocardiogram as outpatient in 60 days. (2) Paroxysmal atrial fibrillation: PLAN: Atrial fibrillation with rapid ventricular response on presentation. Presently sinus rhythm. I had a detailed discussion with the patient and his regarding risks of thromboembolic phenomenon. Chronic oral anticoagulation was offered. Risks and benefits discussed in detail. They understand these and wished to proceed. Recommend starting on Eliquis 2.5 mg twice daily. (3) Coronary artery disease: PLAN: Continue beta-blockers. Aspirin. (4) Elevated troponin: PLAN: Minimally elevated troponin with no significant upward or downward trend. Likely type II. See #1 above. (5) Bilateral pneumonia: PLAN: As per internal medicine. (6) Chronic kidney disease: PLAN: Monitor creatinine. HPI Consult Data Date of Consult: 05/09/24 HPI Narrative Reason for Consultation: Decreased LVEF HPI Narrative: This gentleman has past medical history significant for coronary artery disease status post quintuple CABG in 2007. He has been admitted to the hospital with complaints of shortness of breath. A CT scan of his chest showed bibasilar consolidations. He is being treated for pneumonia. As part of his workup, an echocardiogram was also done. It showed an LVEF of 35%. This is a change from his previous echocardiogram which showed normal left ventricular systolic function. Patient denies any orthopnea. He has been feeling short of breath for the past some time. Denies any fevers or chills. No ankle edema. No paroxysmal nocturnal dyspnea. Denies any chest pains. Denies any palpitations. ECG on presentation to the emergency room showed atrial fibrillation with rapid ventricular response. Left bundle branch block. Presently ECG shows sinus rhythm. [facility] Medical History Hiatal hernia Kidney disease TIA (transient ischemic attack) Hypertension Wears hearing aid Wears glasses Wears partial dentures Wears dentures History of renal disease High cholesterol Easy bruising Injury of head and neck Difficulty swallowing History of hiatal hernia Gastric reflux Former smoker Leg cramps History of pain when walking History of edema History of echocardiogram Cardiology follow-up encounter Syncope (10/2020) History of CVA (cerebrovascular accident) Traumatic subarachnoid hemorrhage (10/2020) Hyperlipidemia Claudication Barretts esophagus TIA (transient ischemic attack) Atherosclerotic heart disease of [place] coronary artery without angina pectoris Left bundle branch block Carotid bruit Left carotid artery stenosis Angiopathy, peripheral Home Medications ?Medication ?Instructions ?Recorded ?Last Taken ?Type aspirin 81 mg tablet,delayed 81 mg PO QDAY SUPPLEMENT 11/04/17 02/26/24 History release (Adult Low Dose Aspirin) cholecalciferol (vitamin D3) 25 1,000 unit PO QDAY SUPPLEMENT 03/11/23 02/26/24 History mcg (1,000 unit) capsule omeprazole 20 mg capsule,delayed 20 mg PO BID GERD #180 caps 02/11/24 02/28/24 Rx release amlodipine 10 mg tablet 10 mg PO DAILY BP #90 TABLETS 03/21/24 Unknown Rx hydrochlorothiazide 25 mg tablet 25 mg PO DAILY BP #90 TABLETS 03/21/24 Unknown Rx metoprolol tartrate 25 mg tablet 25 mg PO BID BP #180 TABLETS 03/21/24 Unknown Rx atorvastatin 20 mg tablet 20 mg PO QPM H;D 03/27/24 Unknown History Allergy/AdvReac Type Severity Reaction Status Date / Time Iodinated Contrast Media AdvReac Severe CKD Verified 05/07/24 14:02 (Iodinated Contrast- Oral and IV Dye) Family History Mother CAD (coronary artery disease) Diabetes Myocardial infarction Brother CAD (coronary artery disease) Hx of CABG Brother CAD (coronary artery disease) Surgical History History of esophagogastroduodenoscopy (EGD) Hx of right cataract extraction Hx of left cataract extraction Hx of colonoscopy Hx of foot surgery History of left-sided carotid endarterectomy (2000) 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) Social History Smoking Status: Former smoker alcohol intake: current details: Rare substance use type: does not use caffeine: Yes Type: coffee Number of servings: 3 Physical Exam Narrative Comfortable. No apparent distress. No JVD. Heart sounds 1 and 2 noted. No murmurs or rubs noted. Chest clear to auscultation bilaterally. Alert oriented x 3. No ankle edema. Risk Stratification Risk Stratification Applicable: No Objective Data Vital Signs: Vital Signs Temp Pulse Resp BP Pulse Ox O2 Del Method O2 Flow Rate 97.9 F 76 18 146/52 H 93 High Flow 12 05/09/24 08:45 05/09/24 09:07 05/09/24 08:45 05/09/24 08:45 05/09/24 11:11 05/09/24 11:11 05/09/24 11:11 FiO2 79 05/09/24 08:45 Oxygen Flow Rate (L/min) 12 Oxygen Delivery Method High Flow Weight: 133 lb 9.602 oz Body Mass Index (BMI) 22.2 Intake & Output: Intake and Output for Last 24 Hours 05/07/24 05/08/24 05/09/24 23:59 23:59 23:59 Intake Total 580 / 580 248.25 / 252.00 221.25 / 221.25 Output Total 200 / 200 1075 / 1075 200 / 200 Balance 380 / 380 -826.75 / -823.00 . / Lab / Micro Data 05/09/24 06:32 05/09/24 06:32 Labs: Laboratory Results - last 24 hr 05/08/24 18:55: ESR 75 H, Phosphorus 3.1, Magnesium 2.2, C-React Prot Ext Range 330.00 H 05/08/24 23:35: WBC 14.1 H, RBC 3.56 L, Hgb 10.9 L, Hct 33.3 L, MCV 93.5, MCH 30.6, MCHC 32.7, RDW Std Deviation 45.0 H, RDW Coeff of [place] 13.0, Plt Count 252, MPV 10.7, Immature Gran % (Auto) 2.100 H, Neut % (Auto) 80.8 H, Lymph % (Auto) 3.7 L, Stokes % (Auto) 13.0 H, Eos % (Auto) 0.2, Baso % (Auto) 0.2, Absolute Neuts (auto) 11.4 H, Absolute Lymphs (auto) 0.52 L, Nucleated RBC % 0, Differential Comment SCANNED, Diff Path Review November, PT 16.5 H, INR 1.3, APTT 30.1 05/09/24 06:32: WBC 11.1 H, RBC 3.53 L, Hgb 11.0 L, Hct 32.8 L, MCV 92.9, MCH 31.2, MCHC 33.5, RDW Std Deviation 44.7 H, RDW Coeff of [place] 13.2, Plt Count 244, MPV 10.7, Immature Gran % (Auto) 0.400, Neut % (Auto) 77.7 H, Lymph % (Auto) 7.0 L, Stokes % (Auto) 14.0 H, Eos % (Auto) 0.6, Baso % (Auto) 0.3, Absolute Neuts (auto) 8.7 H, Absolute Lymphs (auto) 0.78 L, Nucleated RBC % 0, Differential Comment SCANNED, Diff Path Review November, Platelet Estimate ADEQUATE, RBC Morphology NORM C+C, APTT 63.9 H, Sodium 136, Potassium 3.2 L, Chloride 99, Carbon Dioxide 29.0, Anion Gap 8, BUN 65 H, Creatinine 2.28 H, Estim Creat Clear Calc 19.57, Est GFR (MDRD) Af Amer 35 L, Est GFR (MDRD) Non-Af 29 L, B UN/Creatinine Ratio 28.5 H, Glucose 129 H, Calcium 9.4, Phosphorus 3.9, Magnesium 2.2, Total Bilirubin 0.70, AST 29, ALT 38, Alkaline Phosphatase 103, Total Protein 7.1, Albumin 2.4 L, Globulin 4.7 H, Albumin/Globulin Ratio 0.5 L ABG Data ABG results: ABG 05/08/24 21:35 Specimen Type ART Sample Site R Radial pH 7.48 H Bicarbonate Actual 29.5 H Total CO2 31 Base Excess 6 H O2 Saturation 91 L O2 % 87.0 ABG pCO2 39.2 ABG pO2 57 L Giovanni Test Positive O2 Delivery Device airvo Vent Mode Not entered Clinical Comments 50L Cardiology Labs/Tests 05/08/24 18:55: Phosphorus 3.1, Magnesium 2.2 05/08/24 21:35: pH 7.48 H, Bicarbonate Actual 29.5 H, Base Excess 6 H, O2 Saturation 91 L, ABG pCO2 39.2, ABG pO2 57 L, Giovanni Test Positive 05/08/24 23:35: WBC 14.1 H, RBC 3.56 L, Hgb 10.9 L, Hct 33.3 L, MCV 93.5, MCH 30.6, MCHC 32.7, Plt Count 252, MPV 10.7, Immature Gran % (Auto) 2.100 H, Neut % (Auto) 80.8 H, Lymph % (Auto) 3.7 L, Stokes % (Auto) 13.0 H, Eos % (Auto) 0.2, Baso % (Auto) 0.2, Absolute Neuts (auto) 11.4 H, Nucleated RBC % 0, PT 16.5 H, INR 1.3, APTT 30.1 05/09/24 06:32: WBC 11.1 H, RBC 3.53 L, Hgb 11.0 L, Hct 32.8 L, MCV 92.9, MCH 31.2, MCHC 33.5, Plt Count 244, MPV 10.7, Immature Gran % (Auto) 0.400, Neut % (Auto) 77.7 H, Lymph % (Auto) 7.0 L, Stokes % (Auto) 14.0 H, Eos % (Auto) 0.6, Baso % (Auto) 0.3, Absolute Neuts (auto) 8.7 H, Nucleated RBC % 0, APTT 63.9 H, Sodium 136, Potassium 3.2 L, Chloride 99, Carbon Dioxide 29.0, Anion Gap 8, BUN 65 H, Creatinine 2.28 H, Est GFR (MDRD) Af Amer 35 L, Est GFR (MDRD) Non-Af 29 L , BUN/Creatinine Ratio 28.5 H, Glucose 129 H, Calcium 9.4, Phosphorus 3.9, Magnesium 2.2, Total Bilirubin 0.70 Rhythm: EKG: ECHO: Stress Test: Cardiac Cath: PCI: CT Surgery: Holter monitor: EPS: PPM: CXR: Chest CT Scan: Radiography Diagnostic Testing: Radiology Impression [facility] 05/08/24 05:55 IMPRESSION: 1. Negative 99m Tc MAA pulmonary perfusion Tc DTPA aerosol ventilation imaging survey, according to revised PIOPED interpretive criteria. Perfusion-only modified PIOPED II criteria The modified PIOPED II criteria have been adapted for perfusion scintigraphy (i.e. no ventilation scan) 4,5. In this scheme, the presence of a match or mismatch is determined by comparing the perfusion scan with the chest radiograph rather than a ventilation scan. A perfusion defect without a corresponding radiographic opacity is considered mismatched. In addition, the criterion of multiple matched ventilation and perfusion defects with normal radiograph has been removed from the category of pulmonary embolism absent. Perfusion-only interpretation reduces both the specificity and the proportion of nondiagnostic readings compared to ventilation and perfusion using modified PIOPED II criteria 5. Pulmonary embolism present (high probability) two or more large mismatched segmental perfusion defects or the arithmetic equivalent of moderate and/or large defects Nondiagnostic (low or intermediate probability) all other findings not falling into the pulmonary embolism present or absent categories Pulmonary embolism absent (normal or very low probability) no perfusion defects nonsegmental perfusion defects (e.g. pleural effusion at the costophrenic angle, cardiomegaly, elevated hemidiaphragm, hilar enlargement, linear atelectasis), without other perfusion defects in either lung perfusion defects smaller than corresponding chest radiographic opacity one to three small subsegmental perfusion defects solitary matched defect in a single segment in the middle or upper lung zone stripe sign (a stripe of perfusion peripheral to a defect, best seen on tangential view) large pleural effusion (occupying one-third or more of the pleural cavity), without other perfusion defects in either lung Electronically Signed: Frank Alvarez MD at 11:56 EDT Reading Location ID and State: [facility] / [place] , Service support , Echocardiogram 05/08/24 11:31 Interpretation Summary The left ventricular ejection fraction is 35 %. Normal LV size. Stage 2 diastolic dysfunction. Pulmonary artery systolic pressure is 50 mmHg. Ordering Physician: Jennifer Stinson Performed By: Andrzej Starr and Student Chest CT 05/08/24 16:49 IMPRESSION: Moderate bilateral effusions with bilateral lower lobe consolidation compatible with pneumonia. Electronically Signed: Terrance Gaston MD at 19:25 EDT ,
[2024-05-09] MEDS: Lisinopril 2.5 MG Tablet PO (12:39)
[2024-05-09] MEDS: Empagliflozin 10 MG Tablet PO (12:39)
[2024-05-09 12:50] LABS: Partial Thromboplast Time 53.9 Seconds (24.1-36.2)
[2024-05-09 13:12] LABS: Pathologist Review Reviewed
[2024-05-09 14:18] LABS: Rheumatoid Factor < 10.0 IU/mL (<15)
--- NOTE | 2024-05-09 17:33 | PN.HOSP_ITS ---
Reason for Visit Reason for Visit: Shortness of breath Subjective Subjective Patient developed A-fib with RVR through the night. We did increase his beta- gretta and he was briefly on Cardizem. He was also given 1 dose of oral Cardizem. Patient has subsequently converted to normal sinus rhythm. With A- fib and his diastolic dysfunction he developed further breathing problems which are improved this morning. I did discuss extensively with the patient and his the findings on the echocardiogram and the consultation for pulmonary medicine and cardiology. We did discuss the need for modified barium swallow to rule out any aspiration. Objective Data Objective Data Vital Signs: Vital Signs Temp Pulse Resp BP Pulse Ox O2 Del Method O2 Flow Rate 97.6 F L 99 16 138/48 H 90 High Flow 10 05/09/24 12:40 05/09/24 13:13 05/09/24 13:13 05/09/24 12:40 05/09/24 14:27 05/09/24 13:39 05/09/24 14:27 FiO2 79 05/09/24 08:45 Oxygen Flow Rate (L/min) 10 Oxygen Delivery Method High Flow Weight: 60.6 kg Body Mass Index (BMI) 22.2 Intake & Output: Intake and Output for Last 24 Hours 05/07/24 05/08/24 05/09/24 23:59 23:59 23:59 Intake Total 580 / 580 248.25 / 252.00 286.75 / 286.75 Output Total 200 / 200 1075 / 1075 200 / 200 Balance 380 / 380 -826.75 / -823.00 86.75 / 86.75 Lab / Micro Data 05/09/24 06:32 05/09/24 06:32 Labs: Laboratory Results - last 24 hr 05/08/24 18:55: ESR 75 H, Phosphorus 3.1, Magnesium 2.2, C-React Prot Ext Range 330.00 H 05/08/24 23:35: WBC 14.1 H, RBC 3.56 L, Hgb 10.9 L, Hct 33.3 L, MCV 93.5, MCH 30.6, MCHC 32.7, RDW Std Deviation 45.0 H, RDW Coeff of [place] 13.0, Plt Count 252, MPV 10.7, Immature Gran % (Auto) 2.100 H, Neut % (Auto) 80.8 H, Lymph % (Auto) 3.7 L, [place] % (Auto) 13.0 H, Eos % (Auto) 0.2, Baso % (Auto) 0.2, Absolute Neuts (auto) 11.4 H, Absolute Lymphs (auto) 0.52 L, Nucleated RBC % 0, Differential Comment SCANNED, Diff Path Review Reviewed, PT 16.5 H, INR 1.3, APTT 30.1 05/09/24 06:32: WBC 11.1 H, RBC 3.53 L, Hgb 11.0 L, Hct 32.8 L, MCV 92.9, MCH 31.2, MCHC 33.5, RDW Std Deviation 44.7 H, RDW Coeff of [place] 13.2, Plt Count 244, MPV 10.7, Immature Gran % (Auto) 0.400, Neut % (Auto) 77.7 H, Lymph % (Auto) 7.0 L, [place] % (Auto) 14.0 H, Eos % (Auto) 0.6, Baso % (Auto) 0.3, Absolute Neuts (auto) 8.7 H, Absolute Lymphs (auto) 0.78 L, Nucleated RBC % 0, Differential Comment SCANNED, Diff Path Review May foll, Platelet Estimate ADEQUATE, RBC Morphology NORM C+C, APTT 63.9 H, Sodium 136, Potassium 3.2 L, Chloride 99, Carbon Dioxide 29.0, Anion Gap 8, BUN 65 H, Creatinine 2.28 H, Estim Creat Clear Calc 19.57, Est GFR (MDRD) Af Amer 35 L, Est GFR (MDRD) Non-Af 29 L, B UN/Creatinine Ratio 28.5 H, Glucose 129 H, Calcium 9.4, Phosphorus 3.9, Magnesium 2.2, Total Bilirubin 0.70, AST 29, ALT 38, Alkaline Phosphatase 103, Total Protein 7.1, Albumin 2.4 L, Globulin 4.7 H, Albumin/Globulin Ratio 0.5 L, Rheumatoid Factor < 10.0 05/09/24 12:31: APTT 53.9 H Micro: Microbiology 05/07/24 21:00 Nasal Secretion MRSA (PCR) - Final 05/07/24 20:07 Mucosa - Nasopharyngeal Respiratory Panel (PCR) - Final 05/07/24 21:00 Urine, Clean Catch Legionella Antigen - Final 05/07/24 21:00 Urine, Clean Catch Streptococcus pneumoniae Antigen (M - Final 05/07/24 15:38 Mucosa - Nose SARS-CoV-2, Influenza & RSV (PCR) - Final ABG Data ABG results: ABG 05/08/24 21:35 Specimen Type ART Sample Site R Radial pH 7.48 H Bicarbonate Actual 29.5 H Total CO2 31 Base Excess 6 H O2 Saturation 91 L O2 % 87.0 ABG pCO2 39.2 ABG pO2 57 L Giovanni Test Positive O2 Delivery Device airvo Vent Mode Not entered Clinical Comments 50L Radiography Diagnostic Testing: Radiology Impression Echocardiogram 05/08/24 11:31 Interpretation Summary The left ventricular ejection fraction is 35 %. Normal LV size. Stage 2 diastolic dysfunction. Pulmonary artery systolic pressure is 50 mmHg. Ordering Physician: Jennifer Stinson Performed By: Andrzej Starr and Student Chest CT 05/08/24 16:49 IMPRESSION: Moderate bilateral effusions with bilateral lower lobe consolidation compatible with pneumonia. Electronically Signed: Terrance Gaston MD at 19:25 EDT , Physical Exam Const alert, oriented x3, no apparent distress, average body habitus and well nourished; Negative for healthy appearing Constitutional Narrative: Elderly, white male, sitting up in bed with and nurse at bedside, interacts well and answers questions appropriately, does not have any dyspnea with conversation, no coughing at the time of my evaluation HEENT head/scalp atraumatic and moist oral mucous membranes Head and Scalp: normocephalic Eyes EOMs intact bilaterally and conjunctivae normal Eyes Narrative: No scleral icterus Neck no lymphadenopathy and supple Resp normal respiratory effort, no retractions and no use of accessory muscles Resp Narrative: Diminished at bases bilaterally with few scattered crackles at the midlung bilaterally, appears comfortable on Airvo with no accessory muscle use or signs of respiratory distress Auscultation: crackles; Negative for rhonchi or wheezes Cardio regular rate, regular rhythm, S1 normal heart sound, S2 normal heart sound, no murmurs, no rub, no gallops and no clicks GI normal to inspection, nondistended, normoactive bowel sounds, soft to palpation and non-tender Extremity Extremity Narrative: Lower extremity edema resolved, no cyanosis or clubbing Skin no jaundice, no petechiae and no mottling Neuro oriented x3, moves all extremities and no focal motor deficits Speech: speech normal Psych affect normal Psych Narrative: Very pleasant, eye contact is good and patient interacts appropriately Assessment & Plan Assessment/Plan (1) Bilateral pneumonia: (2) 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, <= 40%): (3) Acute hypoxic respiratory failure: PLAN: Plan Acute hypoxic respiratory failure secondary to bilateral lower lobe pneumonia and pleural effusions/HFrEF -Seems to be multifactorial -CT of the chest from 05/08/2024 showed bilateral lower lobe infiltrates as well as bilateral effusions -Continue vancomycin and Zosyn -Strep pneumo and Legionella antigens are negative -Will consider discontinuing vancomycin tomorrow with negative MRSA screen -Respiratory panel is negative/COVID/flu/RSV is negative -With lack of fever, cough or sputum production and markedly elevated inflammatory markers with an ESR of 75 and a CRP of 333.3 will obtain autoimmune workup with ANCA's, JOHNNY with reflex panel, RF, and anti-CCP antibody -Echocardiogram from 05/08/2024 showed depressed EF at 35% with stage II diastolic dysfunction and pulmonary systolic pressures of 50 mmHg -Last echocardiogram from 04/19/2023 demonstrated an EF of 60% with moderate eccentric mitral valve insufficiency, mild to moderate aortic valve insufficiency -Lasix on hold for now due to worsening renal function -Cardiology was consulted and placed on goal-directed therapy per their recommendations -Continue fluid and sodium restricted diet with low EF -Currently requiring Airvo--> consult pulmonary medicine Acute HFrEF -This is new with newly depressed EF at 35% and stage II diastolic dysfunction -Patient will not likely tolerate rapid heart rates all that well -Goal-directed therapy per cardiology -BNP was markedly elevated on presentation -Continue sodium and fluid restrictions to cardiac diet -Cardiology is following New onset A-fib with RVR -No previous known A-fib -Self converted back to normal sinus rhythm -Continue increased metoprolol dose -Heparin drip for now and will transition to Eliquis 2.5 mg daily if no need for any intervention D-dimer elevation -VQ scan low probability so we will discontinue therapeutic Lovenox Leukocytosis -Trending down -Etiology is unclear -Continue broad-spectrum antibiotics Repeat in a.m. Mild chronic anemia -Hemoglobin stable Hypokalemia -Will replace again CKD stage IV -Serum creatinine is relatively close to baseline -Most recently creatinine from the end of March has been between 2 and 2.5 -Currently 2.28 -May be cardiorenal -Diuresis as above -Monitor renal function closely Troponin elevation -Highly suspect related to demand with hypoxia -Only mild elevation -Echocardiogram does not show any specific wall motion abnormality -cardiology is following CAD/essential hypertension/hyperlipidemia -CABG x 5 ORELLANA-LAD, SVG-D1, Sequential SVG-RCA, lateral Cx and LPDA 11/10/2007 -Medication changes per cardiology -Continue home aspirin Dysphagia/history of Bales's esophagus/esophageal stenosis -Previous dilation with Dr. Carlin -Previous stent placement -Continue PPI -Most recent EGD done on 04/11/2024 -Continue outpatient follow-up with GI unless acute issues develop while hospitalized History of carotid artery stenosis x 2 -History of CEA on the left History of stroke -Continue home aspirin -Continue modifiable risk factor modification DVT prophylaxis -Subcu heparin twice daily CODE STATUS -Full code as verified with patient at the time of my evaluation today Charges/Coding Visit Charges Inpatient E&M: 24059 [facility] Hosp L3
[2024-05-09 19:20] LABS: Partial Thromboplast Time 60.1 Seconds (24.1-36.2)
[2024-05-09] MEDS: Atorvastatin Calcium 20 MG Tablet PO (21:00)
[2024-05-09] MEDS: Senna/Docusate Sodium 1 Tablet 2 TABLET PO (21:00)
--- NOTE | 2024-05-09 22:58 | PCMCONS.TICU ---
HPI Consult Data Date of Consult: 05/09/24 HPI Narrative HPI Narrative: Chart and data reviewed Will plan to visit patient 05/10 All data c/w cardiogenic pulmonary edema Will initiate scheduled loop diuretics this evening - goal 1-2 L (-) fluid balance daily I do not believe he has an infectious PNA - consider stopping antimicrobials [facility] Medical History Hiatal hernia Kidney disease TIA (transient ischemic attack) Hypertension Wears hearing aid Wears glasses Wears partial dentures Wears dentures History of renal disease High cholesterol Easy bruising Injury of head and neck Difficulty swallowing History of hiatal hernia Gastric reflux Former smoker Leg cramps History of pain when walking History of edema History of echocardiogram Cardiology follow-up encounter Syncope (10/2020) History of CVA (cerebrovascular accident) Traumatic subarachnoid hemorrhage (10/2020) Hyperlipidemia Claudication Barretts esophagus TIA (transient ischemic attack) Atherosclerotic heart disease of [place] coronary artery without angina pectoris Left bundle branch block Carotid bruit Left carotid artery stenosis Angiopathy, peripheral Home Medications ?Medication ?Instructions ?Recorded ?Last Taken ?Type aspirin 81 mg tablet,delayed 81 mg PO QDAY SUPPLEMENT 11/04/17 02/26/24 History release (Adult Low Dose Aspirin) cholecalciferol (vitamin D3) 25 1,000 unit PO QDAY SUPPLEMENT 03/11/23 02/26/24 History mcg (1,000 unit) capsule omeprazole 20 mg capsule,delayed 20 mg PO BID GERD #180 caps 02/11/24 02/28/24 Rx release amlodipine 10 mg tablet 10 mg PO DAILY BP #90 TABLETS 03/21/24 Unknown Rx hydrochlorothiazide 25 mg tablet 25 mg PO DAILY BP #90 TABLETS 03/21/24 Unknown Rx metoprolol tartrate 25 mg tablet 25 mg PO BID BP #180 TABLETS 03/21/24 Unknown Rx atorvastatin 20 mg tablet 20 mg PO QPM H;D 03/27/24 Unknown History Allergy/AdvReac Type Severity Reaction Status Date / Time Iodinated Contrast Media AdvReac Severe CKD Verified 05/07/24 14:02 (Iodinated Contrast- Oral and IV Dye) Family History Mother CAD (coronary artery disease) Diabetes Myocardial infarction Brother CAD (coronary artery disease) Hx of CABG Brother CAD (coronary artery disease) Surgical History History of esophagogastroduodenoscopy (EGD) Hx of right cataract extraction Hx of left cataract extraction Hx of colonoscopy Hx of foot surgery History of left-sided carotid endarterectomy (2000) 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) Social History Smoking Status: Former smoker alcohol intake: current details: Rare substance use type: does not use caffeine: Yes Type: coffee Number of servings: 3 Objective Data Objective Data Vital Signs: Vital Signs Last response Temperature 36.6 C 05/09/24 21:00 Temperature Source Oral 05/09/24 21:00 Pulse Rate 76 05/09/24 21:00 Respiratory Rate 18 05/09/24 21:00 Respiratory Effort Normal, Non-Labored 05/09/24 21:07 Respiratory Depth Normal 05/09/24 21:07 Respiratory Pattern Normal 05/09/24 21:07 Blood Pressure 130/48 H 05/09/24 21:00 Blood Pressure Mean 75 05/09/24 21:00 Blood Pressure Source Monitor 05/09/24 21:00 Blood Pressure Position Semi-Fowlers 05/09/24 21:00 Blood Pressure Location Right Arm 05/09/24 21:00 Pulse Ox 93 05/09/24 21:00 Oxygen Delivery Method High Flow 05/09/24 21:07 Oxygen Flow Rate (L/min) 10 05/09/24 21:07 Fraction of Inspired Oxygen (FIO2) 79 05/09/24 08:45 I&O: I&O Last 24 Hours 05/08/24 05/09/24 05/09/24 23:59 11:59 23:59 Intake Total 198.25 / 252.00 221.25 / 286.75 65.5 / 286.75 Output Total 500 / 1075 200 / 650 450 / 650 Balance -301.75 / -823.00 21.25 / -363.25 -384.5 / -363.25 I&O: Total Stay 05/07/24 13:58 thru 05/09/24 18:21 Intake Total 1115.00 Output Total 1925 Balance -810.00 Current Meds Ordered / Administered: Current meds ordered / Administered Generic Name Dose Route Start Last Admin Trade Name Freyadi PRN Reason Stop Dose Admin Acetaminophen 650 mg 05/07/24 18:44 Acetaminophen 325 Mg Tablet PO Q6H PRN PRN Pain 1-10 Or Fever >100.7 Albuterol/Ipratropium 3 ml 05/07/24 18:44 05/09/24 20:34 Ipratropium/Albuterol Sulfate 3 Ml Ampul.Neb INHALATION 3 ml Q6H.RT HYACINTH Administration Amlodipine Besylate 10 mg 05/08/24 10:00 05/09/24 09:06 Amlodipine 10 Mg Tablet PO 10 mg DAILY HYACINTH Administration Protocol Aspirin 81 mg 05/08/24 08:00 05/09/24 09:06 Aspirin E.C. 81 Mg Tablet PO 81 mg DAILYCM HYACINTH Administration Atorvastatin Calcium 20 mg 05/07/24 22:00 05/09/24 21:00 Atorvastatin Calcium 20 Mg Tablet PO 20 mg QHS HYACINTH Administration Cholecalciferol 25 mcg 05/08/24 10:00 05/09/24 09:07 Cholecalciferol (Vit D3) 25 Mcg Tablet (1,000 Units) PO 25 mcg DAILY HYACINTH Administration Empagliflozin 10 mg 05/09/24 12:30 05/09/24 12:39 Empagliflozin 10 Mg Tablet PO 10 mg DAILY HYACINTH Administration Guaifenesin 10 ml 05/08/24 22:30 05/09/24 18:20 Guaifenesin 10 Ml Udc (200mg/10ml) PO 10 ml Q6 HYACINTH Administration Heparin Sodium (Porcine) 0 unit 05/08/24 23:35 Heparin Injection (Vial) 5,000 Unit/Ml Vial IV UD PRN dose adjustment Protocol Sodium Chloride 500 mls @ 15 mls/hr 05/07/24 18:57 IV .[id number] PRN Saline Flush Sodium Chloride 500 mls @ 15 mls/hr 05/07/24 18:57 IV .[id number] PRN Additional IVPB Infusion Heparin Sodium/Dextrose 25,000 units in 250 mls @ 10 mls/hr 05/09/24 00:05 05/09/24 13:08 CONT INF 1,100 units/hr .Q25H HAYCINTH 11 mls/hr Titration Protocol As Directed Piperacillin Sod/Tazobactam 50 mls @ 12.5 mls/hr 05/09/24 22:00 05/09/24 21:04 Sod 3.375 gm/ Sodium Chloride IV 12.5 mls/hr Q12 HYACINTH Administration Lisinopril 2.5 mg 05/09/24 12:30 05/09/24 12:39 Lisinopril 2.5 Mg Tablet PO 2.5 mg DAILY HYACINTH Administration Protocol Metoprolol Tartrate 50 mg 05/08/24 22:00 05/09/24 21:00 Metoprolol Tartrate 50 Mg Tablet PO 50 mg BID HYACINTH Administration Protocol Pantoprazole Sodium 20 mg 05/07/24 22:00 05/09/24 21:00 Pantoprazole Sodium 20 Mg Tablet PO 20 mg BID HYACINTH Administration Prochlorperazine Edisylate 5 mg 05/07/24 18:44 Prochlorperazine 10 Mg/2 Ml Vial IV Q4H PRN PRN Breakthrough Nausea/Vomiting Senna/Docusate Sodium 2 tablet 05/07/24 22:00 05/09/24 21:00 Senna/Docusate Sodium 1 Tablet PO 2 tablet BID HYACINTH Administration Sodium Chloride 10 - 40 ml 05/07/24 18:57 05/09/24 06:15 0.9% Saline Lock 10 Ml Syringe IV 10 ml UD PRN Administration SALINE FLUSH Lab / Micro Data 05/09/24 06:32 05/09/24 06:32 Labs: Laboratory Results - last 24 hr 05/08/24 23:35: WBC 14.1 H, RBC 3.56 L, Hgb 10.9 L, Hct 33.3 L, MCV 93.5, MCH 30.6, MCHC 32.7, RDW Std Deviation 45.0 H, RDW Coeff of [place] 13.0, Plt Count 252, MPV 10.7, Immature Gran % (Auto) 2.100 H, Neut % (Auto) 80.8 H, Lymph % (Auto) 3.7 L, [place] % (Auto) 13.0 H, Eos % (Auto) 0.2, Baso % (Auto) 0.2, Absolute Neuts (auto) 11.4 H, Absolute Lymphs (auto) 0.52 L, Nucleated RBC % 0, Differential Comment SCANNED, Diff Path Review Reviewed, PT 16.5 H, INR 1.3, APTT 30.1 05/09/24 06:32: WBC 11.1 H, RBC 3.53 L, Hgb 11.0 L, Hct 32.8 L, MCV 92.9, MCH 31.2, MCHC 33.5, RDW Std Deviation 44.7 H, RDW Coeff of [place] 13.2, Plt Count 244, MPV 10.7, Immature Gran % (Auto) 0.400, Neut % (Auto) 77.7 H, Lymph % (Auto) 7.0 L, [place] % (Auto) 14.0 H, Eos % (Auto) 0.6, Baso % (Auto) 0.3, Absolute Neuts (auto) 8.7 H, Absolute Lymphs (auto) 0.78 L, Nucleated RBC % 0, Differential Comment SCANNED, Diff Path Review November, Platelet Estimate ADEQUATE, RBC Morphology NORM C+C, APTT 63.9 H, Sodium 136, Potassium 3.2 L, Chloride 99, Carbon Dioxide 29.0, Anion Gap 8, BUN 65 H, Creatinine 2.28 H, Estim Creat Clear Calc 19.57, Est GFR (MDRD) Af Amer 35 L, Est GFR (MDRD) Non-Af 29 L, BUN/Creatinine Ratio 28.5 H, Glucose 129 H, Calcium 9.4, Phosphorus 3.9, Magnesium 2.2, Total Bilirubin 0.70, AST 29, ALT 38, Alkaline Phosphatase 103, Total Protein 7.1, Albumin 2.4 L, Globulin 4.7 H, Albumin/Globulin Ratio 0.5 L, Rheumatoid Factor < 10.0 05/09/24 12:31: APTT 53.9 H 05/09/24 19:00: APTT 60.1 H Imaging Radiology Impression Venous Doppler Study 05/08/24 05:55 Interpretation Summary Deep veins of the lower extremities are bilaterally patent and compressible segmentally. There is no evidence of deep vein thrombosis on either side. Valvular competence appears intact within the proximal deep venous systems bilaterally. The great saphenous veins appear bilaterally patent and compressible segmentally. Ordering Physician: Len Harris Referring Physician: Gladis Castro M.D. Performed By: Meg Carrillo RVT Assessment and Plan . Assessment and plan: Critical Care Time: The entirety of this encounter was done via Telemedicine
[2024-05-10] VITALS (14 sets, daily range): BP systolic 115–141; BP diastolic 42–52; PULSE 61–106; RESP 16–18; TEMP 36.1–36.6; O2SAT 89–98; BMI 22.6
[2024-05-10] MEDS: Furosemide 100 MG/10 ML Vial 60 MG IV ×2 (00:17→06:03)
[2024-05-10] MEDS: HEPARIN/D5w 25,000 UNITS 25,000 UNITS/250 ML IV.SOLN. 11 UNITS CONT INF (00:18)
[2024-05-10] MEDS: guaiFENesin 10 ML UDC (200MG/10ML) PO ×4 (00:30→17:25)
[2024-05-10 01:34] LABS: Partial Thromboplast Time 66.9 Seconds (24.1-36.2)
[2024-05-10] MEDS: Ipratropium/Albuterol Sulfate 3 ML AMPUL.NEB INHALATION ×3 (01:41→19:12)
[2024-05-10 07:03] LABS: Absolute Lymphocyte Count 0.65 X10^3/uL (0.83-4.51); Absolute Neutrophil Count 7.7 X10^3/uL (2.0-7.7); Basophil# 0.03 X10^3/uL; Basophil% 0.3 % (0-1); Eosinophil# 0.17 X10^3/uL; Eosinophils% 1.7 % (0-5); Hematocrit 31.9 % (40-54); Hemoglobin 10.6 g/dL (13.0-16.5); Lymphocyte # 0.65 X10^3/ul (0.83-4.51); Lymphocyte % 6.6 % (19-41); Mean Corp Hgb Conc 33.2 g/dL (32-36); Mean Corpuscular Hgb 31.1 pg (27.0-32.0); Mean Corpuscular Volume 93.5 fL (80-94); Mean Platelet Vol. 10.7 fl (6.2-12.0); Monocyte# 1.26 X10^3/uL; Monocyte% 12.8 % (0-10); NRBC Flagged by Analyzer 0 % (0-5); Neutrophil # 7.72 X10^3/uL (2.7-7.7); Neutrophil % 78.1 % (47-70); Platelet Count 258 K/mm3 (150-450); RBC Distribution Width CV 13.2 % (11.6-14.6); RBC Distribution Width SD 45.6 fl (35.1-43.9); Red Blood Count 3.41 M/mm3 (4.6-6.2); White Blood Count 9.9 K/mm3 (4.4-11.0)
[2024-05-10 07:23] LABS: Partial Thromboplast Time 84.7 Seconds (24.1-36.2)
[2024-05-10 07:31] LABS: Anion Gap 9 (5-15); BUN 70 mg/dL (7-18); Calcium,Total 8.9 mg/dL (8.5-10.1); Chloride 98 mmol/L (98-107); Creatinine, Serum 2.59 mg/dL (0.70-1.30); EST Glomerular Filtration Rate 25 mL/min (>60); Est Glom Filt Rate - Afr Amer 30 mL/min (>60); Estimated Creatinine Clearance 17.48 ml/min; Glucose 132 mg/dL (74-106); Sodium Level 137 mmol/L (136-145)
--- NOTE | 2024-05-10 07:39 | PN.CARD_ITS ---
Subjective Subjective Patient seen and evaluated. Objective Data Vital Signs: Vital Signs Temp Pulse Resp BP Pulse Ox O2 Del Method O2 Flow Rate 97.6 F L 64 16 126/52 H 94 High Flow 10 05/10/24 03:00 05/10/24 03:00 05/10/24 03:00 05/10/24 03:00 05/10/24 03:00 05/10/24 03:00 05/10/24 01:44 FiO2 79 05/09/24 08:45 Oxygen Flow Rate (L/min) 10 Oxygen Delivery Method High Flow Weight: 135 lb 12.876 oz Body Mass Index (BMI) 22.6 Intake & Output: Intake and Output for Last 24 Hours 05/08/24 05/09/24 05/10/24 23:59 23:59 23:59 Intake Total 248.25 / 252.00 286.75 / 406.75 292.83 / 292.83 Output Total 1075 / 1075 650 / 1100 1500 / 1500 Balance -826.75 / -823.00 -363.25 / -693.25 -1207.17 / -1207.17 Lab / Micro Data 05/10/24 06:35 05/10/24 06:35 Labs: Laboratory Results - last 24 hr 05/08/24 23:35: Diff Path Review Reviewed 05/09/24 06:32: Differential Comment SCANNED, Diff Path Review November, Platelet Estimate ADEQUATE, RBC Morphology NORM C+C, Rheumatoid Factor < 10.0 05/09/24 12:31: APTT 53.9 H 05/09/24 19:00: APTT 60.1 H 05/10/24 01:05: APTT 66.9 H 05/10/24 06:35: WBC 9.9, RBC 3.41 L, Hgb 10.6 L, Hct 31.9 L, MCV 93.5, MCH 31.1, MCHC 33.2, RDW Std Deviation 45.6 H, RDW Coeff of [place] 13.2, Plt Count 258, MPV 10.7, Immature Gran % (Auto) 0.500, Neut % (Auto) 78.1 H, Lymph % (Auto) 6.6 L, [place] % (Auto) 12.8 H, Eos % (Auto) 1.7, Baso % (Auto) 0.3, Absolute Neuts (auto) 7.7, Absolute Lymphs (auto) 0.65 L, Nucleated RBC % 0, APTT 84.7 H, Sodium 137, Potassium 3.0 L, Chloride 98, Carbon Dioxide 30.0, Anion Gap 9, BUN 70 H, C reatinine 2.59 H, Estim Creat Clear Calc 17.48, Est GFR (MDRD) Af Amer 30 L, Est GFR (MDRD) Non-Af 25 L, BUN/Creatinine Ratio 27.0 H, Glucose 132 H, Calcium 8.9, C-React Prot Ext Range 201.00 H Cardiology Labs/Tests 05/09/24 12:31: APTT 53.9 H 05/09/24 19:00: APTT 60.1 H 05/10/24 01:05: APTT 66.9 H 05/10/24 06:35: WBC 9.9, RBC 3.41 L, Hgb 10.6 L, Hct 31.9 L, MCV 93.5, MCH 31.1, MCHC 33.2, Plt Count 258, MPV 10.7, Immature Gran % (Auto) 0.500, Neut % (Auto) 78.1 H, Lymph % (Auto) 6.6 L, [place] % (Auto) 12.8 H, Eos % (Auto) 1.7, Baso % (Auto) 0.3, Absolute Neuts (auto) 7.7, Nucleated RBC % 0, APTT 84.7 H, Sodium 137, Potassium 3.0 L, Chloride 98, Carbon Dioxide 30.0, Anion Gap 9, BUN 70 H, C reatinine 2.59 H, Est GFR (MDRD) Af Amer 30 L, Est GFR (MDRD) Non-Af 25 L, B UN/Creatinine Ratio 27.0 H, Glucose 132 H, Calcium 8.9 Rhythm: EKG: ECHO: Stress Test: Cardiac Cath: PCI: CT Surgery: Holter monitor: EPS: PPM: CXR: Chest CT Scan: Radiography Diagnostic Testing: Radiology Impression Venous Doppler Study 05/08/24 05:55 Interpretation Summary Deep veins of the lower extremities are bilaterally patent and compressible segmentally. There is no evidence of deep vein thrombosis on either side. Valvular competence appears intact within the proximal deep venous systems bilaterally. The great saphenous veins appear bilaterally patent and compressible segmentally. Ordering Physician: Len Harris Referring Physician: Gladis Castro M.D. Performed By: Meg Carrillo RVT Physical Exam Const alert, oriented x3 and no apparent distress General Appearance: cooperative HEENT hearing grossly normal bilaterally Head and Scalp: atraumatic Eyes EOMs intact bilaterally Neck General: normal visual inspection Chest inspection of chest normal and palpation of chest normal Resp normal respiratory effort Auscultation: clear to auscultation bilaterally Cardio regular rate, regular rhythm, S1 normal heart sound and S2 normal heart sound Jugular Venous Distention: JVD GI normal to inspection, nondistended, normoactive bowel sounds Extremity normal capillary refill and no pedal edema Peripheral Pulses: Yes pulses 2+ throughout and femoral pulses present Skin no rashes or lesions noted Neuro oriented x3 and CN's II-XII intact bilaterally Psych Appearance: grossly normal and appropriate Assessment & Plan Assessment/Plan (1) 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, <= 40%): PLAN: LVEF may be transiently suppressed because of acute illness with bilateral pneumonia. Will recommend continuing beta-blockers and SGLT2 inhibitors. (2) Paroxysmal atrial fibrillation: PLAN: Atrial fibrillation with rapid ventricular response on presentation. Patient is currently in sinus rhythm. Will recommend starting Eliquis at 2.5 mg twice a day due to the renal dysfunction. (3) Coronary artery disease: PLAN: Continue beta-blockers. Aspirin. (4) Elevated troponin: PLAN: Minimally elevated troponin with no significant upward or downward trend. Likely type II. See #1 above. (5) Bilateral pneumonia: PLAN: As per internal medicine. (6) Chronic kidney disease: PLAN: Monitor creatinine.
[2024-05-10] MEDS: Empagliflozin 10 MG Tablet PO (09:50)
[2024-05-10] MEDS: APIXABAN 2.5 MG TABLET (WCH) PO ×2 (09:50→20:35)
[2024-05-10] MEDS: Aspirin E.C. 81 MG Tablet PO (09:50)
[2024-05-10] MEDS: amLODIPine 10 MG Tablet PO (09:51)
[2024-05-10] MEDS: Metoprolol Tartrate 50 MG Tablet PO ×2 (09:51→20:35)
[2024-05-10] MEDS: Pantoprazole Sodium 20 MG Tablet PO ×2 (09:51→20:36)
[2024-05-10] MEDS: Cholecalciferol (VIT D3) 25 MCG TABLET (1,000 UNITS) PO (09:52)
[2024-05-10] MEDS: 0.9% Saline Lock 10 ML Syringe IV (09:53)
[2024-05-10 12:09] LABS: Anti-Centromere B Ab <0.2 AI (0.0-0.9); Anti-Chromatin <0.2 AI (0.0-0.9); Anti-Jo <0.2 AI (0.0-0.9); Anti-Scleroderma-70 AB <0.2 AI (0.0-0.9); Anti-dsDNA Ab 1 IU/mL (0-9); RNP Ab <0.2 AI (0.0-0.9); SJOGREN'S Anti-SS-A test 0.9 AI (0.0-0.9); SJOGREN'S Anti-SS-B test < 0.2 AI (0.0-0.9); Smith Ab <0.2 AI (0.0-0.9)
[2024-05-10 13:08] LABS: CCP IgG Antibodies 7 units (0-19)
[2024-05-10 14:06] LABS: Pathologist Review Reviewed
--- NOTE | 2024-05-10 17:10 | PCM.PN.HOSP ---
Reason for Visit Reason for Visit: Shortness of breath Subjective Subjective No issues overnight. Patient remains in sinus rhythm. Oxygen is being weaned and he is now on 10 L high flow from [place] yesterday. Was given diuretics last night however renal function continues to climb so we will back off on diuresis for now. Objective Data Objective Data Vital Signs: Vital Signs Temp Pulse Resp BP Pulse Ox O2 Del Method O2 Flow Rate 97.4 F L 69 16 122/42 H 98 High Flow 8 05/10/24 16:00 05/10/24 16:00 05/10/24 16:00 05/10/24 16:00 05/10/24 16:00 05/10/24 16:00 05/10/24 16:00 FiO2 79 05/09/24 08:45 Oxygen Flow Rate (L/min) 8 Oxygen Delivery Method High Flow Weight: 61.6 kg Body Mass Index (BMI) 22.6 Intake & Output: Intake and Output for Last 24 Hours 05/08/24 05/09/24 05/10/24 23:59 23:59 23:59 Intake Total 248.25 / 252.00 286.75 / 406.75 399.53 / 399.53 Output Total 1075 / 1075 650 / 1100 2200 / 2200 Balance -826.75 / -823.00 -363.25 / -693.25 -1800.47 / -1800.47 Lab / Micro Data 05/10/24 06:35 05/10/24 06:35 Labs: Laboratory Results - last 24 hr 05/09/24 06:32: Diff Path Review Reviewed 05/09/24 10:13: Cycl Citrul Peptide IgG 7, ROSALIO-1 Antibody <0.2, SS-A/Ro IgG Antibody 0.9, SS-B/La IgG Antibody < 0.2, Sm (Cano) Antibody <0.2, MINE SUPERINTENDENT Antibody <0.2, Scl-70 Scleroderma Ab <0.2, Double Strand DNA Ab 1, Antichromatin Antibodies <0.2, Centromere B Antibody <0.2 05/09/24 19:00: APTT 60.1 H 05/10/24 01:05: APTT 66.9 H 05/10/24 06:35: WBC 9.9, RBC 3.41 L, Hgb 10.6 L, Hct 31.9 L, MCV 93.5, MCH 31.1, MCHC 33.2, RDW Std Deviation 45.6 H, RDW Coeff of [place] 13.2, Plt Count 258, MPV 10.7, Immature Gran % (Auto) 0.500, Neut % (Auto) 78.1 H, Lymph % (Auto) 6.6 L, [place] % (Auto) 12.8 H, Eos % (Auto) 1.7, Baso % (Auto) 0.3, Absolute Neuts (auto) 7.7, Absolute Lymphs (auto) 0.65 L, Nucleated RBC % 0, APTT 84.7 H, Sodium 137, Potassium 3.0 L, Chloride 98, Carbon Dioxide 30.0, Anion Gap 9, BUN 70 H, Creatinine 2.59 H, Estim Creat Clear Calc 17.48, Est GFR (MDRD) Af Amer 30 L, Est GFR (MDRD) Non-Af 25 L, BUN/Creatinine Ratio 27.0 H, Glucose 132 H, Calcium 8.9, C-React Prot Ext Range 201.00 H Micro: Microbiology 05/07/24 19:07 Blood Culture (Wb) - Anticubital Right Blood Culture - Preliminary No growth in 48 hours. 05/07/24 21:00 Nasal Secretion MRSA (PCR) - Final 05/07/24 20:07 Mucosa - Nasopharyngeal Respiratory Panel (PCR) - Final 05/07/24 21:00 Urine, Clean Catch Legionella Antigen - Final 05/07/24 21:00 Urine, Clean Catch Streptococcus pneumoniae Antigen (M - Final 05/07/24 15:38 Mucosa - Nose SARS-CoV-2, Influenza & RSV (PCR) - Final Radiography Diagnostic Testing: Radiology Impression Venous Doppler Study 05/08/24 05:55 Interpretation Summary Deep veins of the lower extremities are bilaterally patent and compressible segmentally. There is no evidence of deep vein thrombosis on either side. Valvular competence appears intact within the proximal deep venous systems bilaterally. The great saphenous veins appear bilaterally patent and compressible segmentally. Ordering Physician: Len Harris Referring Physician: Gladis Castro M.D. Performed By: Meg Carrillo RVT Physical Exam Const alert, oriented x3, no apparent distress, average body habitus and well nourished; Negative for healthy appearing Constitutional Narrative: Elderly, white male, sitting up in a chair at the bedside, is at the bedside, interacts well and answers questions appropriately, continues to not have any dyspnea with conversation, nontoxic and appears comfortable HEENT head/scalp atraumatic and moist oral mucous membranes HEENT Narrative: No thrush noted Head and Scalp: normocephalic Resp normal respiratory effort, no retractions, no use of accessory muscles and clear to auscultation bilaterally Resp Narrative: Good air movement, no adventitious sounds noted, appears comfortable on heated high flow nasal cannula, crackles have resolved Auscultation: Negative for crackles, rhonchi or wheezes Cardio regular rate, regular rhythm, S1 normal heart sound, S2 normal heart sound, no murmurs, no rub, no gallops and no clicks GI normal to inspection, nondistended, normoactive bowel sounds, soft to palpation and non-tender Extremity no clubbing, cyanosis or edema Neuro oriented x3 and moves all extremities Speech: speech normal Psych affect normal Psych Narrative: Very pleasant, eye contact is good and patient interacts appropriately Assessment & Plan Assessment/Plan (1) Bilateral pneumonia: (2) 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, <= 40%): (3) Acute hypoxic respiratory failure: PLAN: Plan Acute hypoxic respiratory failure secondary to bilateral lower lobe pneumonia and pleural effusions/HFrEF -Seems to be multifactorial -CT of the chest from 05/08/2024 showed bilateral lower lobe infiltrates as well as bilateral effusions -Strep pneumo and Legionella antigens are negative -Will consider discontinuing vancomycin tomorrow with negative MRSA screen -Respiratory panel is negative/COVID/flu/RSV is negative -ESR of 75 and a CRP of 333.3 on 05/08-->CRP down today at 48 hrs to 201 -with this will continue antibiotics as he does seem to be clinically improving as well -RF/anti-CCP unremarkable, JOHNNY and reflex panel unremarkable -P-ANCA and c-ANCA are still pending -Echocardiogram from 05/08/2024 showed depressed EF at 35% with stage II diastolic dysfunction and pulmonary systolic pressures of 50 mmHg -Last echocardiogram from 04/19/2023 demonstrated an EF of 60% with moderate eccentric mitral valve insufficiency, mild to moderate aortic valve insufficiency -Lasix on hold for now due to worsening renal function -Discussed with cardiology -Continue fluid and sodium restricted diet with low EF -Has been weaned to high flow nasal cannula at 10 L and seems to be improving -Pulmonary medicine is following Acute HFrEF -This is new with newly depressed EF at 35% and stage II diastolic dysfunction -Patient will not likely tolerate rapid heart rates all that well -Goal-directed therapy per cardiology -BNP was markedly elevated on presentation -Continue sodium and fluid restrictions to cardiac diet -Cardiology is following New onset A-fib with RVR -No previous known A-fib -Self converted back to normal sinus rhythm and still remains in sinus rhythm -Continue increased metoprolol dose -Eliquis 2.5 mg started today D-dimer elevation -VQ scan low probability so we will discontinue therapeutic Lovenox Leukocytosis -Normalized -Etiology is unclear -Continue broad-spectrum antibiotics with Zosyn -Repeat in a.m. Mild chronic anemia -Hemoglobin stable Hypokalemia -Continue supplementation CKD stage IV -Serum creatinine is relatively close to baseline -Most recently creatinine from the end of March has been between 2 and 2.5 -Currently 2.59 -May be cardiorenal -Diuresis on hold -Monitor renal function closely Troponin elevation -Highly suspect related to demand with hypoxia -Only mild elevation -Echocardiogram does not show any specific wall motion abnormality -cardiology is following CAD/essential hypertension/hyperlipidemia -CABG x 5 ORELLANA-LAD, SVG-D1, Sequential SVG-RCA, lateral Cx and LPDA 11/10/2007 -Medication changes per cardiology -Continue home aspirin Dysphagia/history of Bales's esophagus/esophageal stenosis -Previous dilation with Dr. Carlin -Previous stent placement -Continue PPI -Most recent EGD done on 04/11/2024 -Continue outpatient follow-up with GI unless acute issues develop while hospitalized History of carotid artery stenosis x 2 -History of CEA on the left History of stroke -Continue home aspirin -Continue modifiable risk factor modification DVT prophylaxis -Eliquis 2.5 twice daily CODE STATUS -Full code as verified with patient at the time of my evaluation today Charges/Coding Visit Charges Inpatient E&M: 91897 Subs Hosp L2
[2024-05-10] MEDS: Potassium Chloride Oral Tablet 20 MEQ 40 MEQ PO (20:20)
[2024-05-10] MEDS: Atorvastatin Calcium 20 MG Tablet PO (20:36)
[2024-05-10] MEDS: Piperacil/Tazobactam 3.375 GM in 0.9% Normal Saline (50mL MB+) 50 ML IV (20:37)
[2024-05-11] VITALS (10 sets, daily range): BP systolic 109–134; BP diastolic 47–56; PULSE 73–98; RESP 16–23; TEMP 36.3–36.6; O2SAT 90–98; BMI 22.1
[2024-05-11] MEDS: guaiFENesin 10 ML UDC (200MG/10ML) PO ×2 (00:08→05:31)
[2024-05-11] MEDS: Ipratropium/Albuterol Sulfate 3 ML AMPUL.NEB INHALATION ×3 (02:05→19:06)
[2024-05-11 04:34] LABS: Absolute Neutrophil Count 7.1 X10^3/uL (2.0-7.7); Basophil# 0.04 X10^3/uL; Basophil% 0.4 % (0-1); Eosinophils% 4.2 % (0-5); Hematocrit 32.7 % (40-54); Hemoglobin 10.7 g/dL (13.0-16.5); Lymphocyte % 7.4 % (19-41); Mean Corp Hgb Conc 32.7 g/dL (32-36); Mean Corpuscular Hgb 30.7 pg (27.0-32.0); Mean Platelet Vol. 10.7 fl (6.2-12.0); Monocyte# 1.26 X10^3/uL; Monocyte% 13.2 % (0-10); NRBC Flagged by Analyzer 0 % (0-5); Neutrophil # 7.09 X10^3/uL (2.7-7.7); Neutrophil % 74.5 % (47-70); Platelet Count 291 K/mm3 (150-450); RBC Distribution Width CV 13.3 % (11.6-14.6); RBC Distribution Width SD 45.3 fl (35.1-43.9); Red Blood Count 3.48 M/mm3 (4.6-6.2); White Blood Count 9.5 K/mm3 (4.4-11.0)
[2024-05-11 05:00] LABS: ALB/GLOB Ratio 0.5 RATIO (0.9-2.4); AST(SGOT) 27 U/L (15-37); Alanine Aminotransfer ALT/SGPT 39 U/L (16-61); Albumin, Serum 2.2 g/dL (3.2-5.0); Alkaline Phosphatase 93 U/L (45-117); Anion Gap 6 (5-15); BUN 75 mg/dL (7-18); BUN/Creat Ratio 28.3 RATIO (10-20); Calcium,Total 9.1 mg/dL (8.5-10.1); Chloride 102 mmol/L (98-107); Creatinine, Serum 2.65 mg/dL (0.70-1.30); EST Glomerular Filtration Rate 24 mL/min (>60); Est Glom Filt Rate - Afr Amer 30 mL/min (>60); Estimated Creatinine Clearance 16.72 ml/min; Globulin 4.5 g/dL (2.2-4.2); Glucose 112 mg/dL (74-106); Magnesium 2.4 mg/dL (1.6-2.6); Potassium 3.6 mmol/L (3.5-5.1); Protein, Total 6.7 g/dL (6.4-8.2); Sodium Level 138 mmol/L (136-145)
--- NOTE | 2024-05-11 08:11 | EKG12_ITS ---
Test Reason : Blood Pressure : / mmHG Vent. Rate : 089 BPM Atrial Rate : 089 BPM P-R Int : 144 ms QRS Dur : 140 ms QT Int : 398 ms P-R-T Axes : 046 020 151 degrees QTc Int : 484 ms Sinus rhythm with Premature supraventricular complexes Left bundle branch block Abnormal ECG When compared with ECG of 09-MAY-2024 02:24, MANUAL COMPARISON REQUIRED, DATA IS UNCONFIRMED Confirmed by DAYA ALFORD, RON ([id number]), supervising editor news reel ELIUD MARINELLI ([id number]) on 05/11/2024 2:12:18 PM Referred By: LAURA Confirmed By:RON STAPLETON MD
[2024-05-11 09:09] LABS: Cytoplasmic Ab (C-ANCA) <1:20 titer (Neg:<1:20); Perinuclear Ab (P-ANCA) <1:20 titer (Neg:<1:20)
[2024-05-11] MEDS: Aspirin E.C. 81 MG Tablet PO (10:12)
[2024-05-11] MEDS: Cholecalciferol (VIT D3) 25 MCG TABLET (1,000 UNITS) PO (10:12)
[2024-05-11] MEDS: Amiodarone 200 MG Tablet PO (10:12)
[2024-05-11] MEDS: amLODIPine 10 MG Tablet PO (10:12)
[2024-05-11] MEDS: Metoprolol Tartrate 50 MG Tablet PO ×2 (10:12→22:41)
[2024-05-11] MEDS: 0.9% Saline Lock 10 ML Syringe IV ×2 (10:12→22:39)
[2024-05-11] MEDS: Empagliflozin 10 MG Tablet PO (10:12)
[2024-05-11] MEDS: Pantoprazole Sodium 20 MG Tablet PO ×2 (10:12→22:41)
[2024-05-11] MEDS: APIXABAN 2.5 MG TABLET (WCH) PO ×2 (10:12→22:41)
[2024-05-11] MEDS: Piperacil/Tazobactam 3.375 GM in 0.9% Normal Saline (50mL MB+) 50 ML IV ×2 (10:16→22:39)
--- NOTE | 2024-05-11 14:29 | PCM.PN.HOSP ---
Reason for Visit Reason for Visit: Shortness of breath Subjective Subjective Patient states overall he is feeling good. Has intermittent tachycardia but does not appear to be atrial fibrillation. He is having frequent ectopy. Cardiology has been notified and amiodarone was initiated. Heart rate is already improving. We did discuss the possibility of discharge tomorrow depending on how he is clinically doing. Nursing is to ambulate him to see how he does with exertion and his oxygenation status at this time. Objective Data Objective Data Vital Signs: Vital Signs Temp Pulse Resp BP Pulse Ox O2 Del Method O2 Flow Rate 97.4 F L 98 20 H 109/53 L 96 Nasal Cannula 4 05/11/24 10:05 05/11/24 10:12 05/11/24 10:05 05/11/24 10:05 05/11/24 10:05 05/11/24 10:05 05/11/24 10:05 FiO2 79 05/09/24 08:45 Oxygen Flow Rate (L/min) 4 Oxygen Delivery Method Nasal Cannula Weight: 60.2 kg Body Mass Index (BMI) 22.1 Intake & Output: Intake and Output for Last 24 Hours 05/09/24 05/10/24 05/11/24 23:59 23:59 23:59 Intake Total 286.75 / 406.75 1099.53 / 1219.53 220 / 220 Output Total 650 / 1100 2300 / 2550 650 / 650 Balance -363.25 / -693.25 -1200.47 / -1330.47 -430 / -430 Lab / Micro Data 05/11/24 03:39 05/11/24 03:39 Labs: Laboratory Results - last 24 hr 05/09/24 10:13: c-ANCA Antibody <1:20, Atypical p-ANCA <1:20, p-ANCA Antibody <1:20 05/11/24 03:39: WBC 9.5, RBC 3.48 L, Hgb 10.7 L, Hct 32.7 L, MCV 94.0, MCH 30.7, MCHC 32.7, RDW Std Deviation 45.3 H, RDW Coeff of [place] 13.3, Plt Count 291, MPV 10.7, Immature Gran % (Auto) 0.300, Neut % (Auto) 74.5 H, Lymph % (Auto) 7.4 L, [place] % (Auto) 13.2 H, Eos % (Auto) 4.2, Baso % (Auto) 0.4, Absolute Neuts (auto) 7.1, Absolute Lymphs (auto) 0.70 L, Nucleated RBC % 0, Sodium 138, Potassium 3.6, Chloride 102, Carbon Dioxide 30.0, Anion Gap 6, BUN 75 H, Creatinine 2.65 H, Estim Creat Clear Calc 16.72, Est GFR (MDRD) Af Amer 30 L, Est GFR (MDRD) Non-Af 24 L, BUN/Creatinine Ratio 28.3 H, Glucose 112 H, Calcium 9.1, Magnesium 2.4, Total Bilirubin 0.70, AST 27, ALT 39, Alkaline Phosphatase 93, Total Protein 6.7, Albumin 2.2 L, Globulin 4.5 H, Albumin/Globulin Ratio 0.5 L Micro: Microbiology 05/07/24 19:07 Blood Culture (Wb) - Anticubital Right Blood Culture - Preliminary No growth in 48 hours. 05/07/24 21:00 Nasal Secretion MRSA (PCR) - Final 05/07/24 20:07 Mucosa - Nasopharyngeal Respiratory Panel (PCR) - Final 05/07/24 21:00 Urine, Clean Catch Legionella Antigen - Final 05/07/24 21:00 Urine, Clean Catch Streptococcus pneumoniae Antigen (M - Final 05/07/24 15:38 Mucosa - Nose SARS-CoV-2, Influenza & RSV (PCR) - Final Physical Exam Const alert, oriented x3, no apparent distress, average body habitus and well nourished; Negative for healthy appearing Constitutional Narrative: Elderly, white male, sitting up in a chair at the bedside, is at the bedside, interacts well and answers questions appropriately, continues to not have any dyspnea with conversation, nontoxic and appears comfortable HEENT head/scalp atraumatic and moist oral mucous membranes Eyes EOMs intact bilaterally and conjunctivae normal Eyes Narrative: No scleral icterus Neck no lymphadenopathy and supple Neck Narrative: Mild hepatojugular reflux Resp normal respiratory effort, no retractions, no use of accessory muscles and clear to auscultation bilaterally Resp Narrative: Good air movement, no adventitious sounds noted, appears comfortable on heated high flow nasal cannula, crackles have resolved Auscultation: Negative for crackles, rhonchi or wheezes Cardio regular rate, regular rhythm, S1 normal heart sound, S2 normal heart sound, no murmurs, no rub, no gallops and no clicks GI normal to inspection, nondistended, normoactive bowel sounds, soft to palpation and non-tender Extremity no clubbing, cyanosis or edema Extremity Narrative: Lower extremity edema resolved, no cyanosis or clubbing Skin no jaundice, no petechiae and no mottling Skin Narrative: No significant abnormalities noted Neuro oriented x3, moves all extremities and no focal motor deficits Speech: speech normal Psych affect normal Psych Narrative: Very pleasant, eye contact is good and patient interacts appropriately Assessment & Plan Assessment/Plan (1) Bilateral pneumonia: (2) 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, <= 40%): (3) Acute hypoxic respiratory failure: PLAN: Plan Acute hypoxic respiratory failure secondary to bilateral lower lobe pneumonia and pleural effusions/HFrEF -Seems to be multifactorial and resolving -Now weaned from 10 L heated high flow yesterday to 4 L heated high flow today -Nursing to check ambulatory requirements today -CT of the chest from 05/08/2024 showed bilateral lower lobe infiltrates as well as bilateral effusions -Clinically much improved on antibiotics so we will continue Zosyn day 3 of 7 -Will likely discharge with quinolone to cover Pseudomonas as we do not have an organism to go on at this time and he did not get better with ceftriaxone and azithromycin -ESR of 75 and a CRP of 333.3 on 05/08--> 201 on 05/10--> repeat again tomorrow -with this will continue antibiotics as he does seem to be clinically improving as well -RF/anti-CCP unremarkable, JOHNNY and reflex panel unremarkable -P-ANCA and c-ANCA were both negative -Echocardiogram from 05/08/2024 showed depressed EF at 35% with stage II diastolic dysfunction and pulmonary systolic pressures of 50 mmHg -Last echocardiogram from 04/19/2023 demonstrated an EF of 60% with moderate eccentric mitral valve insufficiency, mild to moderate aortic valve insufficiency -continue to hold lasix but will likely need 40 mg at d/c to maintain euvolemia -Continue fluid and sodium restricted diet with low EF Acute HFrEF -This is new with newly depressed EF at 35% and stage II diastolic dysfunction -Patient will not likely tolerate rapid heart rates all that well -Goal-directed therapy per cardiology -will need lasix for discharge -Continue sodium and fluid restrictions to cardiac diet -Cardiology is following New onset A-fib with RVR -No previous known A-fib -Predominantly normal sinus rhythm however does have some fluctuation with rapid rates however it does appear that there are P waves so may be MAT -Continue increased metoprolol dose -continue Eliquis 2.5 mg po bid D-dimer elevation -VQ scan low probability so we will discontinue therapeutic Lovenox Leukocytosis -Resolved Mild chronic anemia -Hemoglobin stable Hypokalemia -Resolved CKD stage IV -Serum creatinine is relatively close to baseline -Most recently creatinine from the end of March has been between 2 and 2.5 -Currently 2.65 -May be cardiorenal -Diuresis on hold -Monitor renal function closely Troponin elevation -Highly suspect related to demand with hypoxia -Not consistent with NSTEMI -Only mild elevation -Echocardiogram does not show any specific wall motion abnormality -cardiology is following CAD/essential hypertension/hyperlipidemia -CABG x 5 ORELLANA-LAD, SVG-D1, Sequential SVG-RCA, lateral Cx and LPDA 11/10/2007 -Medication changes per cardiology -Continue home aspirin Dysphagia/history of Bales's esophagus/esophageal stenosis -Previous dilation with Dr. Carlin -Previous stent placement -Continue PPI -Most recent EGD done on 04/11/2024 -Continue outpatient follow-up with GI unless acute issues develop while hospitalized History of carotid artery stenosis x 2 -History of CEA on the left History of stroke -Continue home aspirin -Continue modifiable risk factor modification DVT prophylaxis -Eliquis 2.5 twice daily CODE STATUS -Full code as verified with patient at the time of my evaluation today Charges/Coding Visit Charges Inpatient E&M: 48490 Subs Hosp L2
[2024-05-11] MEDS: Ensure Plus High Protein 120 ML LIQUID PO (16:49)
[2024-05-11] MEDS: Atorvastatin Calcium 20 MG Tablet PO (22:41)
[2024-05-11] MEDS: Senna/Docusate Sodium 1 Tablet 2 TABLET PO (22:42)
[2024-05-12] VITALS (9 sets, daily range): BP systolic 130–155; BP diastolic 44–62; PULSE 67–76; RESP 16–22; TEMP 36.2–37.1; O2SAT 84–96
[2024-05-12] MEDS: Ipratropium/Albuterol Sulfate 3 ML AMPUL.NEB INHALATION ×2 (02:21→07:33)
[2024-05-12 05:50] LABS: Hematocrit 30.9 % (40-54); Mean Corp Hgb Conc 32.4 g/dL (32-36); Mean Corpuscular Hgb 30.6 pg (27.0-32.0); Mean Corpuscular Volume 94.5 fL (80-94); Mean Platelet Vol. 10.4 fl (6.2-12.0); Platelet Count 312 K/mm3 (150-450); RBC Distribution Width CV 13.2 % (11.6-14.6); RBC Distribution Width SD 45.8 fl (35.1-43.9); Red Blood Count 3.27 M/mm3 (4.6-6.2)
[2024-05-12 06:44] LABS: Anion Gap 6 (5-15); BUN 76 mg/dL (7-18); BUN/Creat Ratio 31.4 RATIO (10-20); Calcium,Total 9.1 mg/dL (8.5-10.1); Chloride 104 mmol/L (98-107); Creatinine, Serum 2.42 mg/dL (0.70-1.30); EST Glomerular Filtration Rate 27 mL/min (>60); Est Glom Filt Rate - Afr Amer 33 mL/min (>60); Estimated Creatinine Clearance 18.31 ml/min; Glucose 114 mg/dL (74-106); Magnesium 2.6 mg/dL (1.6-2.6); Phosphorus 4.5 mg/dL (2.5-4.9); Sodium Level 138 mmol/L (136-145)
--- NOTE | 2024-05-12 07:51 | EKG12_ITS ---
Test Reason : CHECK QTC Blood Pressure : / mmHG Vent. Rate : 072 BPM Atrial Rate : 072 BPM P-R Int : 126 ms QRS Dur : 144 ms QT Int : 456 ms P-R-T Axes : 055 044 228 degrees QTc Int : 499 ms Sinus rhythm with occasional Premature ventricular complexes Left bundle branch block Abnormal ECG Confirmed by DAYA ALFORD, RON ([id number]), commercial production editor DONA OZUNA ([id number]) on 05/15/2024 9:58:56 AM Referred By: LAURA Confirmed By:RON STAPLETON MD
[2024-05-12] MEDS: Aspirin E.C. 81 MG Tablet PO (08:08)
[2024-05-12] MEDS: Ensure Plus High Protein 120 ML LIQUID PO ×2 (08:12→11:40)
[2024-05-12] MEDS: Senna/Docusate Sodium 1 Tablet 2 TABLET PO (09:13)
[2024-05-12] MEDS: Metoprolol Tartrate 50 MG Tablet PO (09:13)
[2024-05-12] MEDS: Cholecalciferol (VIT D3) 25 MCG TABLET (1,000 UNITS) PO (09:14)
[2024-05-12] MEDS: Pantoprazole Sodium 20 MG Tablet PO (09:14)
[2024-05-12] MEDS: Empagliflozin 10 MG Tablet PO (09:14)
[2024-05-12] MEDS: Amiodarone 200 MG Tablet PO (09:14)
[2024-05-12] MEDS: amLODIPine 10 MG Tablet PO (09:14)
[2024-05-12] MEDS: levoFLOXacin 750 MG Tablet PO (09:15)
[2024-05-12] MEDS: APIXABAN 2.5 MG TABLET (WCH) PO (09:15)
--- NOTE | 2024-05-12 12:57 | PCM.DC.SUM ---
Providers Date of Admission: 05/07/24 Date of Discharge: 05/12/24 Primary Care Physician: Dr. Gladis Castro, Consultations 05/08/24 20:57 Consult: Cardiology Routine Consulting Provider: Chris Valdez Reason for Consult: New CHF EMERGENT Consult: No Notified: Yes Date Notified: 05/09/24 Time Notified: 06:30 Method of Notification: Text 05/09/24 08:23 Consult: Deputy Prosecuting Attorney / Pulmonary Medicine Routine Consulting Provider: Intensivists/Pulmonary Med Reason for Consult: Acute resp failure with B PNA EMERGENT Consult: No Notified: Yes Date Notified: 05/09/24 Time Notified: 08:36 Method of Notification: internet Reason For Visit: B/L PNEUMONIA Diagnosis Discharge Diagnosis (1) Bilateral pneumonia: Status: Acute Code(s): J18.9 - Pneumonia, unspecified organism (2) 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, <= 40%): Status: Acute Code(s): I50.21 - Acute systolic (congestive) heart failure (3) Acute hypoxic respiratory failure: Status: Acute Code(s): J96.01 - Acute respiratory failure with hypoxia Medications at Discharge Home Medications aspirin 81 mg tablet,delayed release (Adult Low Dose Aspirin) 81 mg PO QDAY SUPPLEMENT 11/04/17 cholecalciferol (vitamin D3) 25 mcg (1,000 unit) capsule 1,000 unit PO QDAY SUPPLEMENT 03/11/23 omeprazole 20 mg capsule,delayed release 20 mg PO BID GERD #180 caps 02/11/24 amlodipine 10 mg tablet 10 mg PO DAILY BP #90 TABLETS 03/21/24 atorvastatin 20 mg tablet 20 mg PO QPM H;D 03/27/24 amiodarone 200 mg tablet 200 mg PO DAILY #30 tabs 05/12/24 apixaban 5 mg tablet (Eliquis) 2.5 mg (1/2 x 5 mg) PO BID #30 tabs 05/12/24 furosemide 40 mg tablet (Lasix) 40 mg PO DAILY #30 tabs 05/12/24 levofloxacin 500 mg tablet 500 mg PO Q48@0600 #3 tabs 05/12/24 metoprolol tartrate 50 mg tablet 50 mg PO BID #60 tabs 05/12/24 Hospital Course Procedures 2-D Echocardiogram, Modified Barium Swallow and - (Chest x-ray/VQ scan/venous duplex/CT chest) Summary of Care Provided Minutes Spent on Discharge: 42 Hospital Course: Mr. Bowman is a 88-year-old white male who presented to the emergency department at [facility] on 05/07/2024 due to shortness of breath that had been progressively worsening over the last several days prior to presentation. He had been complaining of some chills but had no documented fever. Upon presentation he denied any cough, nasal congestion or sinus symptoms, headache, abdominal pain, nausea or vomiting. He does have a history of gastric reflux and esophageal stenosis/strictures and has previously had an esophageal stent placed by Dr. Carlin. 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 He complained of some mild bilateral leg swelling without any new changes right more than left due to previous fracture. Vital signs on presentation showed a temperature of 97.8, heart rate 87, respiratory was 22, blood pressure is 157/59, and pulse ox was 83% on room air. He was placed on 2 L nasal cannula which improved his saturation to 94%. Upon initial presentation there was concern for combined possible pneumonia and heart failure. He was given 1 dose of Lasix and placed on community-acquired antibiotics with ceftriaxone and azithromycin. Once he arrived to the telemetry floor an echocardiogram was performed on 05/08/2024 and showed an EF of 35% with normal LV size, stage II diastolic dysfunction and pulmonary systolic pressure of 50 mmHg. We also obtained a CT of his chest which did show small bilateral pleural effusions but also showed bilateral distal infiltrates not consistent with compressive atelectasis and felt likely to be related to an infectious or inflammatory process. CRP was obtained and was 330. Antibiotics were transitioned from community-acquired coverage to healthcare acquired coverage to include vancomycin and Zosyn. Unfortunately, the patient developed atrial fibrillation with RVR overnight which did stress his respiratory system due to his significant diastolic dysfunction and already depressed EF and he required transient noninvasive ventilation with quick transition to Airvo. Cardiology and pulmonary medicine were consulted. Per cardiology according to his EF he was placed on appropriate goal-directed therapy with metoprolol. His dose was increased. We are unable to start an LORENZO inhibitor or ARB due to his renal dysfunction. SLG T2 inhibitors are contraindicated due to his CKD on presentation and his blood pressure was fairly well-controlled with only metoprolol so we did hold off on nitrates and hydralazine at this point in time. With the appearance of his CT of the chest we got a CRP and it was noted to be 330. It was repeated in 48 hours and was down to 201 and then 48 hours later it was 88.4. Pulmonary medicine was consulted and did not have much else to add but the patient will follow-up as outpatient and pulmonary office to assist with weaning oxygen and ongoing evaluation for any lung issues. I will hold off on dosing Lasix at discharge for the next 7 days. I have asked him to start Lasix 40 mg after that 7-day period to allow his renal function to return back to his baseline. It is slowly improving with time. He will need a basic metabolic profile 7 days after that time. Since he did not have much clinical improvement on ceftriaxone and azithromycin and did had dramatic clinical improvement with the addition of vancomycin and Zosyn (we did discontinue vancomycin and he continued to clinically improve) we did feel the need to cover Pseudomonas as well at discharge so he was discharged on Levaquin. He got 750 on the day of discharge here and then would be dosed 500 mg every 48 hours x 3 doses after discharge and then medication should be stopped. EKG was obtained prior to discharge to assess his QTc and it was found to be just less than 500. Magnesium level on the day of discharge was 2.6. With regards to his atrial fibrillation he was started on Eliquis 2.5 mg twice daily due to his advanced age and renal dysfunction dose was decreased. Metoprolol was increased to 50 mg p.o. twice daily, and he was discharged on amiodarone 200 daily. He has follow-up appointments with cardiology and with pulmonary medicine following discharge. We have asked that he watch his fluid intake intake no more than 2 L daily. Monitor sodium intake for a total intake of no more than 3 g daily and check his daily weights in the a.m. and call the motor polarizer office if he gains more than 2 to 3 pounds in a 24-hour period. Ambulatory pulse ox was performed prior to discharge and he was 89% on room air at rest and 84 with exertion. He was placed on 1 L with increase in pulse ox to 85 and 2 L up to 89. Per review of this data, the patient qualifies for oxygen in the home with portability as the patient is mobile in the home and in the community. Patient is to follow-up with his primary care physician within the next week. Discharge diagnoses: Acute hypoxic respiratory failure Bilateral lower lobe pneumonia Pleural effusions Acute HFrEF New onset A-fib with RVR Elevated D-dimer-VQ scan with low probability Leukocytosis-resolved Mild chronic anemia-stable Hypokalemia-resolved Elevated serum creatinine CKD stage IV Troponin elevation secondary to demand ischemia not consistent with NSTEMI CAD Essential hypertension Hyperlipidemia Dysphagia History of Bales's esophagus History of esophageal stenosis status post stent History of carotid artery stenosis History of stroke Physical Exam Const alert, oriented x3, no apparent distress, average body habitus and well nourished; Negative for healthy appearing Constitutional Narrative: Elderly, white male, sitting up in a chair at the bedside, is at the bedside, interacts well and answers questions appropriately, continues to not have any dyspnea with conversation, nontoxic and appears comfortable General Appearance: cooperative, comfortable, well kempt and well developed Exam Limitations: no limitations HEENT normocephalic, head/scalp atraumatic and moist oral mucous membranes HEENT Narrative: Mild hearing loss, Mallampati 2, no thrush, dentition is fair for age Eyes PERRL, EOMs intact bilaterally and conjunctivae normal Eyes Narrative: No scleral icterus Neck no lymphadenopathy and supple Neck Narrative: Trachea midline, no thyroid enlargement Resp normal respiratory effort, no retractions, no use of accessory muscles and clear to auscultation bilaterally Auscultation: Negative for crackles, rhonchi or wheezes Cardio regular rate, regular rhythm, S1 normal heart sound, S2 normal heart sound, no murmurs, no rub, no gallops and no clicks GI normal to inspection, nondistended, normoactive bowel sounds, soft to palpation and non-tender Extremity Extremity Narrative: Trace right lower extremity edema that is chronic, no left lower extremity edema, no cyanosis or clubbing, radial and pedal pulses are 2+ bilaterally Skin skin turgor normal, no jaundice, no petechiae and no mottling Neuro oriented x3, moves all extremities and no focal motor deficits Speech: speech normal Psych affect normal Psych Narrative: Very pleasant, eye contact is good and patient interacts appropriately Weight / BMI Weight Weight: 60.2 kg Body Mass Index (BMI) 22.1 ABG / Lab / Microbiology Data 05/12/24 04:45 05/12/24 04:45 Laboratory: Laboratory Results - last 24 hr 05/12/24 04:45: WBC 9.0, RBC 3.27 L, Hgb 10.0 L, Hct 30.9 L, MCV 94.5 H, MCH 30.6, MCHC 32.4, RDW Std Deviation 45.8 H, RDW Coeff of [place] 13.2, Plt Count 312, MPV 10.4, Sodium 138, Potassium 4.0, Chloride 104, Carbon Dioxide 28.0, Anion Gap 6, BUN 76 H, Creatinine 2.42 H, Estim Creat Clear Calc 18.31, Est GFR (MDRD) Af Amer 33 L, Est GFR (MDRD) Non-Af 27 L, BUN/Creatinine Ratio 31.4 H, Glucose 114 H, Calcium 9.1, Phosphorus 4.5, Magnesium 2.6, C-React Prot Ext Range 88.40 H Microbiology: Microbiology 05/07/24 19:07 Blood Culture (Wb) - Anticubital Right Blood Culture - Preliminary No growth in 48 hours. 05/07/24 21:00 Nasal Secretion MRSA (PCR) - Final 05/07/24 20:07 Mucosa - Nasopharyngeal Respiratory Panel (PCR) - Final 05/07/24 21:00 Urine, Clean Catch Legionella Antigen - Final 05/07/24 21:00 Urine, Clean Catch Streptococcus pneumoniae Antigen (M - Final 05/07/24 15:38 Mucosa - Nose SARS-CoV-2, Influenza & RSV (PCR) - Final D/C Instructions Discharge Diet: Low fat / Low cholesterol (Limit fluids to 2 L or less daily, limit sodium to 3 g or less daily) Discharge Activity: Return to Normal Activity Meaningful Use Info Meaningful Use Meaningful Use Diagnoses (Choose all that apply): CHF CHF LORENZO/ARB ordered at discharge?: No Reason LORENZO/ARB not ordered?: Worsening renal disease Documented LVEF (%): 35 Ischemic Stroke Statin Dosing Therapy Reference: STATIN DOSE THERAPY REFERENCE: * Patients > 75 years receive moderate or high dose statin therapy. * Patients 75 years or YOUNGER should receive HIGH intensity statin dose unless contraindicated. You will be required to document reason for non-treatment if statin daily dose does not meet guidelines. HIGH DOSE STATIN THERAPY DAILY Atorvastatin > than or = to 40 mg Rosuvastatin > than or = to 20 mg Amlodipine + Atorvastatin > than or = to 2.5/40 mg Ezetimibe + Simvastatin 10/80 mg Simvastatin 80mg Discharge Plan Admission Admit Date/Time: 05/07/24 17:20 Primary Reason for Your Visit: Shortness of breath Attending Provider: Jennifer Stinson Primary Care Provider: Gladis Castro Consulting Providers: Len Harris; Chris Valdez; Cedric Gross; Shamar Foreman; Melvin Kirkland; Kalpesh Mcneill; Pk Ruano; Jean Carlos Sanz; Migdalia Terrzaas; Joao Lee; Vince Valderrama; Angela Chavez; Shantelle Rivera; Mayco Lawrence; Thompson Causey; Jose Troy; Cherise Lennon; Octavio Romero; Donny Marquez Instructions Additional Instructions / Restrictions: 1. Please limit your fluid intake to 1.75 to 2 L daily 2. Please limit your sodium intake to 3 g daily 3. Please weigh yourself daily in the morning without clothes on and keep track of your weight. If you gain more than 2 to 3 pounds in a 24-hour period please take an extra dose of Lasix and call the motor polarizer office. 4. Please continue to wear your oxygen 2 L all the time even while sleeping until you are instructed otherwise to stop. Discharge Orders/Prescriptions Prescriptions: New amiodarone 200 mg Tablet 200 mg PO DAILY Qty: 30 1RF Eliquis 5 mg Tablet 2.5 mg PO BID Qty: 30 0RF levofloxacin 500 mg Tablet 500 mg PO Q48@0600 Qty: 3 0RF Rx Instructions: take next dose on 05/14/2024 metoprolol tartrate 50 mg Tablet 50 mg PO BID Qty: 60 0RF furosemide [Lasix] 40 mg tablet 40 mg PO DAILY Qty: 30 0RF Rx Instructions: Do not start 05/19/2024 Continued cholecalciferol (vitamin D3) 25 mcg (1,000 unit) capsule 1,000 unit PO QDAY aspirin [Adult Low Dose Aspirin] 81 mg tablet,delayed release (DR/EC) 81 mg PO QDAY atorvastatin 20 mg tablet 20 mg PO QPM omeprazole 20 mg capsule,delayed release(DR/EC) 20 mg PO BID Qty: 180 1RF amlodipine 10 mg tablet 10 mg PO DAILY Qty: 90 3RF Discontinued hydrochlorothiazide 25 mg tablet 25 mg PO DAILY Qty: 90 3RF metoprolol tartrate 25 mg tablet 25 mg PO BID Qty: 180 3RF Referrals / Follow Up: Chris Valdez MD [Med Staff - Active Staff] - Melvin Kirkland DO [Med Staff - Active Staff] - 10/05/24 10:45 am (within one week) Gladis Castro DO [Primary Care Provider] - Disposition Disposition (needs filled in before D/C Order can be placed): Home, Self Care Charges/Coding Visit Charges Inpatient E&M: 13425 Disch Hosp >30min
--- NOTE | 2024-05-12 15:01 | CASEMGMT ---
Patient has order for discharge. Patient is discharging on Eliquis, DESTINEE CHAN called [facility] and confirmed copay is $46. Patient is also requiring home oxygen at discharge. Script received and referral sent to [facility] arranged to be delivered to patient's room. DESTINEE CHAN it to updated patient and regarding Eliquis copay and oxygen setup. Patient and denied further needs or help. Patient and had no further questions or concerns.
== END 2024-05-12 16:30 | disposition home or self-care (01) | DRG 193 ==
LOC: ED 17:31 → PCU 17:56
PROVIDERS: Internal Medicine; Admitting Provider Internal Medicine; Emergency Provider Surgery; PCP Internal Medicine; Visit Provider Internal Medicine
DX: J18.9 Pneumonia, unspecified organism (principal); I50.21 Acute systolic (congestive) heart failure; J96.01 Acute respiratory failure with hypoxia; I24.89 Other forms of acute ischemic heart disease; N18.4 Chronic kidney disease, stage 4 (severe); I13.0 Hypertensive heart and chronic kidney disease with heart failure and stage 1 through stage 4 chronic kidney disease, or unspecified chronic kidney disease; I08.3 Combined rheumatic disorders of mitral, aortic and tricuspid valves; I48.0 Paroxysmal atrial fibrillation; E78.00 Pure hypercholesterolemia, unspecified; K44.9 Diaphragmatic hernia without obstruction or gangrene; I25.10 Atherosclerotic heart disease of native coronary artery without angina pectoris; E87.6 Hypokalemia; Z11.52 Encounter for screening for COVID-19; Z79.82 Long term (current) use of aspirin; Z79.899 Other long term (current) drug therapy; Z87.891 Personal history of nicotine dependence; Z86.73 Personal history of transient ischemic attack (TIA), and cerebral infarction without residual deficits; Z95.1 Presence of aortocoronary bypass graft
CPT/HCPCS: 36415; 36600; 71046; 71250; 74230; 78582; 80048; 80053; 82803; 83735; 83880; 84100; 84484; 85025; 85027; 85379; 85610; 85652; 85730; 86037; 86140; 86200; 86225; 86235; 86431; 87040; 87070; 87205; 87449; 87631; 87633; 87641; 92611; 93005; 93306; 93970; 94640; 94660; 94668; 94762; 97110; 97116; 97162; 97166; 97530; 99285; A9540; A9567; J7030; J7040; A4216; J0696; J1940

== ENCOUNTER → 2024-05-19 | Outpatient (CLI) | payer MEDICARE, SELFPAY ==
--- NOTE | 2024-05-19 07:53 | CT_ITS ---
STUDY: CT CHEST, ABDOMEN T PELVIS WITHOUT CONTRAST REASON FOR EXAM: Male, 88 years old. Duodenal Stent - order changed, no contrast RADIATION DOSAGE (If Supplied By Facility): CTDIvol = ( 8.59 ) mGy, DLP = ( 681.74 ) mGycm TECHNIQUE: Transaxial imaging was performed without the administration of intravenous contrast material. The protocol utilizes one or more of the following dose reduction techniques: automated exposure control, adjustment of mA and/or kV according to patient size,and/or use of iterative reconstruction technique. COMPARISON: Prior studies dated: CT chest: 05/08/2024; CT chest abdomen and pelvis: 02/28/2024 FINDINGS: ---CHEST LUNGS: Patchy consolidation bilaterally in the lower lobes and groundglass opacities in the right upper lobe and left upper lobe, partially decreased compared to the more recent CT chest. Calcified granulomata in the right upper lobe. LARGE AIRWAYS: Unremarkable. PLEURA: Small bilateral pleural effusions, decreased compared to recent CT chest. No pneumothorax. MEDIASTINUM: Prominent lymph nodes in the mediastinum not significantly changed. HEART: Not enlarged. Dense perivalvular calcifications. Sternal wires. CORONARY ARTERIES: Coronary artery calcifications are seen. AORTA/VESSELS: No aortic aneurysm. ESOPHAGUS: Unremarkable. Small hiatal hernia. BONES/SOFT TISSUES: No acute abnormality. OTHER/LINES: None. ---ABDOMEN PELVIS LIVER: Grossly unremarkable. GALLBLADDER AND BILIARY TREE: Grossly unremarkable. PANCREAS: Grossly unremarkable. SPLEEN: Small calcifications previous granulomatous process.. ADRENAL GLANDS: Grossly unremarkable. KIDNEYS AND URETERS: No calculi demonstrated. No hydronephrosis. Small cyst of the lower pole left kidney, no follow-up needed. PERITONEUM: No free air. No free fluid. BOWEL: Stent approximately 10 cm length from the distal stomach through likely the duodenal bulb or pylorus. This was partially included proximal on the most recent CT chest from 05/08/2024 and the proximal end appears similar although difficult to compare. Otherwise no prior studies available for comparison. There is suggestion of mild wall thickening of the duodenal bulb at the distal end of the stent. The stent appears patent, with fluid through the channel. No definite adjacent stranding. No bowel obstruction. There is a small left inguinal hernia contains a very short segment of sigmoid colon, with no adjacent stranding or collections. Scattered diverticula throughout the colon. APPENDIX: Not identified. VESSELS: Abdominal aorta is normal caliber. REPRODUCTIVE ORGANS: Prostate enlarged and lobulated. Indents into the base of the bladder. URINARY BLADDER: Mildly distended. Diffuse wall thickening especially along the posterior wall. ABDOMINAL WALL: Unremarkable. BONES: No acute abnormalities. Degenerative changes in the lumbar spine. CT/CT Chest, Abd, Pelvis WO Cont IMPRESSION: 1. Stent in place distal stomach through likely duodenal bulb, appears patent. No priors for comparison. Suggestion of slight duodenal wall thickening at the distal end of the stent. No obstruction. 2. Colonic diverticulosis without evidence of acute diverticulitis. 3. Small left inguinal hernia containing short segment of sigmoid colon without evidence of complication. 4. Urinary bladder wall thickening may be consistent with acute cystitis or secondary to prostate disease or other process. 5. Enlarged prostate. 6. Multifocal consolidation with small bilateral pleural effusions likely pneumonia partially decreased compared to the recent CT from 05/08/2024. Continued CT imaging follow-up recommended in 6-8 weeks to confirm resolution. Electronically Signed: Nini Santiago MD at 1:46 EDT ,
== END | disposition home or self-care (01) ==
LOC: CT 07:53
PROVIDERS: PCP Internal Medicine; Referring Provider Internal Medicine Gastroenterology; Visit Provider Internal Medicine Gastroenterology
DX: R13.10 Dysphagia, unspecified (principal); K22.2 Esophageal obstruction
CPT/HCPCS: 71250; 74176

== ENCOUNTER 2024-05-27 16:55 | Inpatient (IN) | payer MEDICARE, SELFPAY ==
[2024-05-27 16:57] VITALS: BP 134/101; PULSE 72; RESP 18; TEMP 36.4; O2SAT 94
--- NOTE | 2024-05-27 17:18 | CT_ITS ---
STUDY: CT ABDOMEN AND PELVIS WITHOUT CONTRAST REASON FOR EXAM: Male, 88 years old. Pain RADIATION DOSAGE (If Supplied By Facility): CTDIvol = ( 7.00 ) mGy, DLP = ( 328.93 ) mGycm TECHNIQUE: Transaxial images were obtained from the dome of the diaphragm to the symphysis pubis without oral contrast, and without intravenous contrast. Sagittal and coronal images were reconstructed. Individualized dose optimization techniques were used for this CT. The protocol utilizes one or more of the following dose reduction techniques: automated exposure control, adjustment of mA and/or kV according to patient size,and/or use of iterative reconstruction technique. COMPARISON: May 19, 2024 CT abdomen and pelvis FINDINGS: Moderate bilateral pleural effusions increased. Calcific mitral annulus. Cardiomegaly. Calcific coronary artery disease. Hypodense blood pool consistent with anemia. Normal liver. Normal gallbladder and extrahepatic biliary system. Multiple calcified splenic granulomas. Normal pancreas. Normal bilateral adrenal glands. Subcentimeter right renal cyst. No further follow-up required as appears simple/benign. Normal left kidney. duodenal stent noted. Small hiatal hernia. Normal small intestine. Colonic diverticulosis. Appendix not identified. Calcific plaque along the aorta and its branches. Normal inferior vena cava. Normal retroperitoneum. Normal urinary bladder. Bilateral fat-containing inguinal hernias. Left inguinal hernia contains a loop of sigmoid colon without evidence of obstruction. Increased stool in the colon. Fat-containing umbilical hernia. Diffuse demineralization. Diffuse demineralization. 11 mm coarse peripherally calcified lesion anterior pelvis. CT/Abdomen/Pelvis without Cont IMPRESSION: Moderate bilateral pleural effusions increased. Probable anemia. Duodenal stent unchanged. The inguinal hernia containing a loop of sigmoid colon without obstruction. Unchanged. Electronically Signed: Ady Branham MD at 18:54 EST ,
--- NOTE | 2024-05-27 17:24 | EDS_ITS ---
HPI <Dr. Eli Calderon DO - Last Filed: 05/27/24 19:18> HPI - GI History of Present Illness Chief Complaint: Constipation Detail of Chief Complaint: Abdominal bloating and decreased urine output Informant: patient <LEXII Mulligan - Last Filed: 05/27/24 19:23> HPI - GI Narrative Narrative: Patient is an 88-year-old male with history of CHF, hypertension hyperlipidemia Bales's esophagus, COPD CVA who presents to the emergency department for generalized abdominal bloating. Patient states that he was recently in the hospital for community-acquired pneumonia, he has been out of the hospital for 2 weeks. He did have some diarrhea secondary to the antibiotics. They placed him on fiber, and he states he has not had a bowel movement in 24 hours. He also has been off his Lasix for the last couple days secondary to some elevation in his creatinine and he has been urinating less and having more abdominal bloating. Patient denies any specific chest pain, denies any shortness of breath, fever chills, here for evaluation. [facility] <Dr. Eli Calderon DO - Last Filed: 05/27/24 19:18> [facility] Medical History (Updated 05/27/24 @ 19:[address] 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, <= 40%) Esophageal obstruction Hiatal hernia Kidney disease TIA (transient ischemic attack) Hypertension Wears hearing aid Wears glasses Wears partial dentures Wears dentures History of renal disease High cholesterol Easy bruising Injury of head and neck Difficulty swallowing History of hiatal hernia Gastric reflux Former smoker Leg cramps History of pain when walking History of edema History of echocardiogram Cardiology follow-up encounter Syncope (10/2020) History of CVA (cerebrovascular accident) Traumatic subarachnoid hemorrhage (10/2020) Hyperlipidemia Claudication Barretts esophagus TIA (transient ischemic attack) Atherosclerotic heart disease of [place] coronary artery without angina pectoris Left bundle branch block Carotid bruit Left carotid artery stenosis Angiopathy, peripheral Home Medications ?Medication ?Instructions ?Recorded ?Last Taken ?Type aspirin 81 mg tablet,delayed 81 mg PO QDAY SUPPLEMENT 11/04/17 02/26/24 History release (Adult Low Dose Aspirin) cholecalciferol (vitamin D3) 25 1,000 unit PO QDAY SUPPLEMENT 03/11/23 02/26/24 History mcg (1,000 unit) capsule omeprazole 20 mg capsule,delayed 20 mg PO BID GERD #180 caps 02/11/24 02/28/24 Rx release atorvastatin 20 mg tablet 20 mg PO QPM H;D 03/27/24 Unknown History amiodarone 200 mg tablet 200 mg PO DAILY #30 tabs 05/12/24 Unknown Rx apixaban 5 mg tablet (Eliquis) 2.5 mg (1/2 x 5 mg) PO BID #30 tabs 05/12/24 Unknown Rx furosemide 40 mg tablet (Lasix) 40 mg PO DAILY #30 tabs 05/12/24 Unknown Rx metoprolol tartrate 50 mg tablet 50 mg PO BID #60 tabs 05/12/24 Unknown Rx amlodipine 10 mg tablet 5 mg PO DAILY BP 05/27/24 Unknown History Allergy/AdvReac Type Severity Reaction Status Date / Time Iodinated Contrast Media AdvReac Severe CKD Verified 05/07/24 14:02 (Iodinated Contrast- Oral and IV Dye) Family History Mother CAD (coronary artery disease) Diabetes Myocardial infarction Brother CAD (coronary artery disease) Hx of CABG Brother CAD (coronary artery disease) Surgical History History of esophagogastroduodenoscopy (EGD) Hx of right cataract extraction Hx of left cataract extraction Hx of colonoscopy Hx of foot surgery History of left-sided carotid endarterectomy (2000) 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) Social History Smoking Status: Former smoker alcohol intake: current details: Rare substance use type: does not use caffeine: Yes Type: coffee Number of servings: 3 ROS <LEXII Mulligan - Last Filed: 05/27/24 19:23> ROS ED ROS Narrative Constitutional: Negative for fever, chills, weight loss, weakness Eyes: Negative for vision loss, vision change, double vision ENT: Negative for any sore throat, ear pain, congestion Cardiovascular: Negative for any chest pain, tightness, palpitations Respiratory: Negative for any cough, sputum production, hemoptysis, dyspnea, dyspnea on exertion, orthopnea Gastrointestinal: Negative for any nausea, vomiting, diarrhea,blood in stool, blood in vomit. Positive for abdominal bloating, constipation : Negative for any urinary frequency, dysuria, retention, blood in urine. Positive decrease in urine output Muscle skeletal: Negative for any neck pain, back pain Neurological: Negative for any headache, syncope, dizziness Skin: Negative for any rashes, itching, abrasions, lacerations Psychiatric: Negative for any depression, anxiety, stress, suicidal ideation, homicidal ideation Hematologic: Negative for any excessive bruising, easy bleeding EXAM <Dr. Eli Calderon, DO - Last Filed: 05/27/24 19:18> Physical Exam Const Vital Signs: 05/27/24 16:57 Temperature 97.5 F L Temperature Source Temporal Pulse Rate 72 Respiratory Rate 18 Blood Pressure 134/101 H Blood Pressure Mean 112 Pulse Ox 94 Oxygen Delivery Method Nasal Cannula <Jareth Aylayakov [employer] - Last Filed: 05/27/24 19:23> Physical Exam Narrative Exam Narrative: Vital signs reviewed. HEET: Head normocephalic atraumatic, TMs clear bilaterally. Posterior pharynx is clear, moist mucous membranes. Nares clear bilaterally. Neck: Supple with no lymphadenopathy or tenderness. No signs of meningismus. Cardiac: Regular rate and rhythm no murmurs gallops or rubs, equal peripheral pulses bilaterally. Respiratory: Lungs clear to auscultation bilaterally. Diminished lung sounds in the bases, no chest tenderness. Abdomen: Soft, nontender, nondistended. No abdominal bruit or pulsatile masses. No hepatosplenomegaly. No significant bloating, no peritoneal signs. Active bowel sounds in all quadrants. Extremities: No peripheral edema, no signs of gross trauma or deformity. Active full range of motion of all extremities. Neuro: Cranial nerves II through XII intact, no focal neurological deficits. Skin: Clean dry and intact with no rash, purpura, petechiae, vesicles or pustules. Backs/flank: No CVA tenderness, no midline spinal tenderness, no deformity. Psych: Normal mood and affect. No SI, HI or acute psychosis. Const Vital Signs: 05/27/24 16:57 Temperature 97.5 F L Temperature Source Temporal Pulse Rate 72 Respiratory Rate 18 Blood Pressure 134/101 H Blood Pressure Mean 112 Pulse Ox 94 Oxygen Delivery Method Nasal Cannula Positive well nourished and well developed General Appearance ED: well developed MDM <Dr. Eli Calderon, DO - Last Filed: 05/27/24 19:18> [facility] Narrative Medical decision making narrative: I have personally performed a face to face assessment of the patient and have reviewed the ANILA Note. I performed a substantive portion of the visit including all aspects of the following. My bates findings include: History is [patient presents with abdominal bloating that started today and de creased urine output. Patient tells me that he was admitted for pneumonia few weeks ago and went home on oxygen. Recently was taken off of Lasix because of worsening kidney function 2 days ago. Patient denies abdominal pain but states that he has not had a bowel movement in 24 hours which is unusual for him. He denies any vomiting. Denies fever. Denies chest pain. states that he has been more anxious lately. Patient was noted to have elevated blood pressures today compared to his normal with a systolic of 142 so his gave him the amlodipine full dose tablet 10 mg however they were recently told to only start taking 5 mg daily because of increased leg edema.] Exam is [HEENT-PERRLA, EOMI. Cranial nerves II through XII grossly intact. TMs clear. Mucous membranes moist. No adenopathy. Cardiovascular-regular rate and rhythm without murmur or ectopy Lungs-clear to auscultation, chest wall stable without crepitus or subcu emphysema Abdomen-normoactive bowel sounds, soft, nontender, no rebound or rigidity, no peritoneal signs. Extremities-intact ?4, normal range of motion, normal pulses, atraumatic] Medical Decison Making [patient presented with constipation x 1 day and some increased dyspnea. Recent admission for pneumonia and CHF. Had been taken off Lasix for a couple of days and there was concern about his kidney function. He is not complaining of chest pain. CBC with differential obtained showed white count of 15,000 with hemoglobin 10.8 and platelet count of 361. Chemistries unremarkable BUN 40 and creatinine 2.17. Does have slight elevation in his LFTs with AST 49 and ALT of 115 as well as an alkaline phosphatase of 136. This may be related to fluid overload and congestion. BNP obtained was elevated 1588. Urinalysis unremarkable. 1 view chest x-ray showed bilateral pleural effusions with moderate CHF and possible left hilar infiltrate. Clinically he is not coughing or running a fever and was recently treated with Levaquin for possible pneumonia. We did do a CT scan of the abdomen pelvis and there were no significant acute findings other than moderate stool throughout the colon. I did order Lasix 80 mg IV. I discussed case with Dr. Grullon who is covering for Dr. Jeff to discuss outpatient versus inpatient management. Given patient's multiple medical conditions and the fact that he is now on home O2 and has new pleural effusions as well as evidence of CHF recommended that we admit the patient for diuresis and further management. Discussed case with hospitalist to evaluate patient for admission.] Other additions or changes: [None] Lab Data Labs: Laboratory Results - last 24 hr 05/27/24 05/27/24 17:39 18:25 WBC 15.1 H RBC 3.49 L Hgb 10.8 L Hct 33.2 L MCV 95.1 H MCH 30.9 MCHC 32.5 RDW Std Deviation 46.9 H RDW Coeff of [place] 13.5 Plt Count 361 MPV 10.4 Immature Gran % (Auto) 0.500 Neut % (Auto) 83.2 H Lymph % (Auto) 4.4 L [place] % (Auto) 11.3 H Eos % (Auto) 0.3 Baso % (Auto) 0.3 Absolute Neuts (auto) 12.6 H Absolute Lymphs (auto) 0.66 L Nucleated RBC % 0 Differential Comment SCANNED Diff Path Review May foll Toxic Granulation 2+ Sodium 137 Potassium 4.3 Chloride 101 Carbon Dioxide 28.0 Anion Gap 8 BUN 48 H Creatinine 2.17 H Est GFR (MDRD) Af Amer 37 L Est GFR (MDRD) Non-Af 31 L BUN/Creatinine Ratio 22.1 H Glucose 146 H Calcium 9.0 Total Bilirubin 0.90 AST 49 H ALT 115 H Alkaline Phosphatase 136 H B-Natriuretic Peptide 1588.8 H Total Protein 7.8 Albumin 3.3 Globulin 4.5 H Albumin/Globulin Ratio 0.7 L Lipase 19 Urine Color Yellow Urine Clarity Clear Urine pH 6.0 Ur Specific [place] 1.020 Urine Protein 30 H Urine Glucose (UA) Normal Urine Ketones Negative Urine Occult Blood Negative Urine Nitrite Negative Urine Bilirubin Negative Urine Urobilinogen Normal Ur Leukocyte Esterase Negative Urine RBC 0 SEEN Urine WBC 0-5 SEEN Ur Squamous Epith Cells 0-5 SEEN Urine Bacteria 0 SEEN Urine Mucus 0 SEEN Radiography Diagnostic Testing: Clinical Impression(s) from Imaging Studies Abdomen/Pelvis CT 05/27/24 17:18 IMPRESSION: Moderate bilateral pleural effusions increased. Probable anemia. Duodenal stent unchanged. The inguinal hernia containing a loop of sigmoid colon without obstruction. Unchanged. Electronically Signed: Ady Branham MD at 18:54 EST Reading Location ID and State: [address] [place] [address] Tel , Service support , Chest X-Ray 05/27/24 17:25 IMPRESSION: Moderate CHF increased. New left perihilar infiltrate. Electronically Signed: Ady Branham MD at 18:39 EST Reading Location ID and State: [address] [place] [address] Tel , Service support , <LEXII Mulligan - Last Filed: 05/27/24 19:23> [facility] Lab Data Labs: Laboratory Results - last 24 hr 05/27/24 05/27/24 17:39 18:25 WBC 15.1 H RBC 3.49 L Hgb 10.8 L Hct 33.2 L MCV 95.1 H MCH 30.9 MCHC 32.5 RDW Std Deviation 46.9 H RDW Coeff of [place] 13.5 Plt Count 361 MPV 10.4 Immature Gran % (Auto) 0.500 Neut % (Auto) 83.2 H Lymph % (Auto) 4.4 L [place] % (Auto) 11.3 H Eos % (Auto) 0.3 Baso % (Auto) 0.3 Absolute Neuts (auto) 12.6 H Absolute Lymphs (auto) 0.66 L Nucleated RBC % 0 Differential Comment SCANNED Diff Path Review May foll Toxic Granulation 2+ Sodium 137 Potassium 4.3 Chloride 101 Carbon Dioxide 28.0 Anion Gap 8 BUN 48 H Creatinine 2.17 H Est GFR (MDRD) Af Amer 37 L Est GFR (MDRD) Non-Af 31 L BUN/Creatinine Ratio 22.1 H Glucose 146 H Calcium 9.0 Total Bilirubin 0.90 AST 49 H ALT 115 H Alkaline Phosphatase 136 H B-Natriuretic Peptide 1588.8 H Total Protein 7.8 Albumin 3.3 Globulin 4.5 H Albumin/Globulin Ratio 0.7 L Lipase 19 Urine Color Yellow Urine Clarity Clear Urine pH 6.0 Ur Specific [place] 1.020 Urine Protein 30 H Urine Glucose (UA) Normal Urine Ketones Negative Urine Occult Blood Negative Urine Nitrite Negative Urine Bilirubin Negative Urine Urobilinogen Normal Ur Leukocyte Esterase Negative Urine RBC 0 SEEN Urine WBC 0-5 SEEN Ur Squamous Epith Cells 0-5 SEEN Urine Bacteria 0 SEEN Urine Mucus 0 SEEN Radiography Diagnostic Testing: Clinical Impression(s) from Imaging Studies Abdomen/Pelvis CT 05/27/24 17:18 IMPRESSION: Moderate bilateral pleural effusions increased. Probable anemia. Duodenal stent unchanged. The inguinal hernia containing a loop of sigmoid colon without obstruction. Unchanged. Electronically Signed: Ady Branham MD at 18:54 EST Reading Location ID and State: [facility] / [place] Tel , Service support , Chest X-Ray 05/27/24 17:25 IMPRESSION: Moderate CHF increased. New left perihilar infiltrate. Electronically Signed: Ady Branham MD at 18:39 EST , Treatment and Re-Evaluation :: Differential diagnosis includes however is not limited to: Bowel obstruction, fluid retention, [place], significant constipation, diverticulitis Patient appears generally well, vital signs are stable, patient is nontoxic- appearing. Presenting to the emergency department for abdominal bloating, concern for fluid overload. Patient will receive chest x-ray, basic laboratory values, CT scan of the abdomen pelvis without contrast. Patient received a urinalysis to rule out any infection. Patient's vital signs are stable, patient is currently on 2 L nasal cannula which she does wear at home. All radiologic examinations were read, reviewed by the emergency department attending. From these reads, a plan of care will be put in place. Patient CBC does show leukocytosis white blood count of 15.1, hemoglobin is 10.8 this is stable. Patient's chemistries show a chronic creatinine 2.17, this seems to be baseline for the patient over the last several months. Patient's AST of 49 with ALT of 115, patient's BNP is 1588, patient has been as high as 1700, lipase was negative. Patient did receive a two-view chest x-ray showed moderate CHF with new left perihilar infiltrate. Patient has no cough, fever chills, body aches. CT scan of the abdomen pelvis shows moderate bilateral pleural effusions that have increased, probable anemia. Duodenal stent unchanged. No other acute findings. Urinalysis negative for any infection. We did reach out to the patient's PCPs office, secondary to the patient's changes, patient does have a complicated medical history. They recommended the patient be admitted. I did reach out to hospitalist, secondary to the patient's new pleural effusions, abdominal bloating, leukocytosis, patient will need to be admitted to hospital. Patient will be given 80 mg of IV Lasix. No antibiotics given at this time. Stable for admission. Discharge Plan Triage Chief Complaint: Constipation ED Midlevel Provider: Jareth Preston ED Provider: Eli Calderon Dx/Rx/DC Orders Clinical Impression: CHF (congestive heart failure), Acute renal insufficiency, Constipation, Leukocytosis Prescriptions: No Action cholecalciferol (vitamin D3) 25 mcg (1,000 unit) capsule 1,000 unit PO QDAY aspirin [Adult Low Dose Aspirin] 81 mg tablet,delayed release (DR/EC) 81 mg PO QDAY atorvastatin 20 mg tablet 20 mg PO QPM omeprazole 20 mg capsule,delayed release(DR/EC) 20 mg PO BID Qty: 180 1RF amiodarone 200 mg Tablet 200 mg PO DAILY Qty: 30 1RF Eliquis 5 mg Tablet 2.5 mg PO BID Qty: 30 0RF levofloxacin 500 mg Tablet 500 mg PO Q48@0600 Qty: 3 0RF Rx Instructions: take next dose on 05/14/2024 metoprolol tartrate 50 mg Tablet 50 mg PO BID Qty: 60 0RF furosemide [Lasix] 40 mg tablet 40 mg PO DAILY Qty: 30 0RF Rx Instructions: Do not start 05/19/2024 amlodipine 10 mg tablet 10 mg PO DAILY Qty: 90 3RF Primary Care Provider: Gladis Castro Referrals: Gladis Castro DO [Primary Care Provider] - Print Language: Irish Disposition Disposition: Acute Care Hospital [facility]
--- NOTE | 2024-05-27 17:25 | RAD_ITS ---
STUDY: X-RAY CHEST REASON FOR EXAM: Male, 88 years old. cough TECHNIQUE: Single frontal view of the chest. COMPARISON: CT chest May 19, 2024. Chest x-ray May 07, 2024. FINDINGS: Sternotomy wires. Moderate interstitial edema. New Left perihilar opacity. Small bilateral pleural effusions. Cardiomegaly. Normal mediastinum and sammy. Normal visualized pulmonary arteries. Normal visualized aortic arch and descending thoracic aorta. Normal visualized thoracic spine. Normal visualized ribs, clavicles, and shoulders. There is no demonstrated abnormality of the visualized soft tissue structures of the upper abdomen. RAD/Chest 1 View (Portable) IMPRESSION: Moderate CHF increased. New left perihilar infiltrate. Electronically Signed: Ady Branham MD at 18:39 EST ,
[2024-05-27 17:59] LABS: Lipase 19 U/L (13-75)
[2024-05-27 18:04] LABS: Absolute Lymphocyte Count 0.66 X10^3/uL (0.83-4.51); Absolute Neutrophil Count 12.6 X10^3/uL (2.0-7.7); Basophil# 0.04 X10^3/uL; Basophil% 0.3 % (0-1); Eosinophil# 0.04 X10^3/uL; Eosinophils% 0.3 % (0-5); Hematocrit 33.2 % (40-54); Hemoglobin 10.8 g/dL (13.0-16.5); Lymphocyte # 0.66 X10^3/ul (0.83-4.51); Lymphocyte % 4.4 % (19-41); Mean Corp Hgb Conc 32.5 g/dL (32-36); Mean Corpuscular Hgb 30.9 pg (27.0-32.0); Mean Corpuscular Volume 95.1 fL (80-94); Mean Platelet Vol. 10.4 fl (6.2-12.0); Monocyte# 1.71 X10^3/uL; Monocyte% 11.3 % (0-10); NRBC Flagged by Analyzer 0 % (0-5); Neutrophil # 12.58 X10^3/uL (2.7-7.7); Neutrophil % 83.2 % (47-70); POSITIVE DIFFERENTIAL YES; Platelet Count 361 K/mm3 (150-450); RBC Distribution Width CV 13.5 % (11.6-14.6); RBC Distribution Width SD 46.9 fl (35.1-43.9); Red Blood Count 3.49 M/mm3 (4.6-6.2); White Blood Count 15.1 K/mm3 (4.4-11.0)
[2024-05-27 18:16] LABS: ALB/GLOB Ratio 0.7 RATIO (0.9-2.4); AST(SGOT) 49 U/L (15-37); Alanine Aminotransfer ALT/SGPT 115 U/L (16-61); Albumin, Serum 3.3 g/dL (3.2-5.0); Alkaline Phosphatase 136 U/L (45-117); Anion Gap 8 (5-15); BUN 48 mg/dL (7-18); BUN/Creat Ratio 22.1 RATIO (10-20); Chloride 101 mmol/L (98-107); Creatinine, Serum 2.17 mg/dL (0.70-1.30); EST Glomerular Filtration Rate 31 mL/min (>60); Est Glom Filt Rate - Afr Amer 37 mL/min (>60); Globulin 4.5 g/dL (2.2-4.2); Glucose 146 mg/dL (74-106); Potassium 4.3 mmol/L (3.5-5.1); Protein, Total 7.8 g/dL (6.4-8.2); Sodium Level 137 mmol/L (136-145)
[2024-05-27 18:26] LABS: BNP,B-Type NATRIURETIC PEPTIDE 1588.8 pg/mL (0-100)
[2024-05-27 18:30] LABS: Bacteria 0 SEEN /hpf (None Seen); Mucous, Urine 0 SEEN /hpf (<or=2+); Red Blood Cells-Urine 0 SEEN /hpf (0-5)
[2024-05-27 18:34] LABS: Color, Urine Yellow (Yellow); Glucose, Dipstick Normal (Normal); Ketone-Dipstick Negative (Negative); Leukocyte Esterase-Dipstick Negative /ul (Negative); Nitrite-Dipstick Negative (Negative); Occult Blood-Urine Negative /ul (Negative); Protein-Dipstick 30 mg/dl (Negative); Urine Bilirubin Dipstick Negative (Negative); Urine Clarity Clear (Clear); Urine Urobilinogen Normal (Normal)
[2024-05-27 18:44] LABS: White Blood Cells 0-5 SEEN /hpf (0-5)
[2024-05-27 18:45] LABS: Squamous Epithelial Cells - UA 0-5 SEEN /hpf (0-5)
[2024-05-27 19:12] VITALS: BP 144/51; PULSE 66; RESP 18; TEMP 36.9; O2SAT 93
--- NOTE | 2024-05-27 19:14 | HP.PCM.HOS_ITS ---
[facility] - General General Date of Admission: 05/27/24 Date of Service: 05/27/24 Chief Complaint: Abdominal Bloating and Decreased UOP. [facility] Narrative FEI ROGERS, is a 88 M with a past medical history of essential hypertension, hyperlipidemia, former tobacco abuse, history Paroxysmal Atrial Fibrillation; on Amiodarone and Eliquis, CAD; s/p CABG x 5 (2007), Chronic Systolic CHF; with LVEF ~35% already on Metoprolol and Lasix 40 mg daily, history of LBBB, history of Left posterior parietal TIA/CVA (2000), history of syncope and traumatic SAH (2000), history of carotid stenosis; s/p carotid endarterectomy (2000), history of claudication, CKD; stage IV with baseline creatinine of ~2.17 mg/dL, chronic anemia, GERD; with history of Bales's Esophagus and Esophageal Stricture on PPI BID, history of Hiatal Hernia, OA, recent admission here from May 07, 2024 to May 12, 2024 for treatment of Bilateral Pneumonia and AE CHF with elevated troponin attributed to acute cardiac strain with him having finished his oral Levaquin as prescribed with patient still Full Code who re-presents to [facility] ER complaining of abdominal bloating and decreased urinary output. Mr. Rogers reports he had some diarrhea while he was taking the Levaquin with no BM in the past 24 hours. Also he has been off of his Lasix due to elevated creatinine spiking from 2.65 mg/dL on May 11, 2024 with decreased UOP, increased LE edema and increased abdominal bloating due to apparently evolving Cardio-Renal Syndrome. He denies associated fever, chills, nausea, vomiting, dysuria, hematuria, chest pain, palpitations or SOB. In the ER he was noted to have an elevated BNP of 1,558.8 pg/mL present on admission with CXR positive for moderate interstitial edema with a new perihilar opacity and small pleural effusions with cardiomegaly consistent with Iatrogenic AE of Chronic Systolic CHF; with LVEF ~35% precipitated by stopping Lasix due to escalating creatinine levels with suspected evolving Cardio-Renal Syndrome complicated by Leukocytosis of 15.1K present on admission with Diarrhea after recent antibiotic treatment concerning for possible Clostridium difficile Colitis and he was then admitted to the PCU for ongoing care for a stay that is expected to extend beyond 2 midnights. [facility] Medical History Coronary artery disease Chronic kidney disease Paroxysmal atrial fibrillation 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, <= 40%) Esophageal obstruction Hiatal hernia Kidney disease TIA (transient ischemic attack) Hypertension Wears hearing aid Wears glasses Wears partial dentures Wears dentures History of renal disease High cholesterol Easy bruising Injury of head and neck Difficulty swallowing History of hiatal hernia Gastric reflux Former smoker Leg cramps History of pain when walking History of edema History of echocardiogram Cardiology follow-up encounter Syncope (10/2020) History of CVA (cerebrovascular accident) Traumatic subarachnoid hemorrhage (10/2020) Hyperlipidemia Claudication Barretts esophagus TIA (transient ischemic attack) Atherosclerotic heart disease of [place] coronary artery without angina pectoris Left bundle branch block Carotid bruit Left carotid artery stenosis Angiopathy, peripheral Home Medications ?Medication ?Instructions ?Recorded ?Last Taken ?Type aspirin 81 mg tablet,delayed 81 mg PO QDAY SUPPLEMENT 11/04/17 02/26/24 History release (Adult Low Dose Aspirin) cholecalciferol (vitamin D3) 25 1,000 unit PO QDAY SUPPLEMENT 03/11/23 02/26/24 History mcg (1,000 unit) capsule omeprazole 20 mg capsule,delayed 20 mg PO BID GERD #180 caps 02/11/24 02/28/24 Rx release atorvastatin 20 mg tablet 20 mg PO QPM H;D 03/27/24 Unknown History amiodarone 200 mg tablet 200 mg PO DAILY #30 tabs 05/12/24 Unknown Rx apixaban 5 mg tablet (Eliquis) 2.5 mg (1/2 x 5 mg) PO BID #30 tabs 05/12/24 Unknown Rx furosemide 40 mg tablet (Lasix) 40 mg PO DAILY #30 tabs 05/12/24 Unknown Rx metoprolol tartrate 50 mg tablet 50 mg PO BID #60 tabs 05/12/24 Unknown Rx amlodipine 10 mg tablet 5 mg PO DAILY BP 05/27/24 Unknown History Allergy/AdvReac Type Severity Reaction Status Date / Time Iodinated Contrast Media AdvReac Severe CKD Verified 05/07/24 14:02 (Iodinated Contrast- Oral and IV Dye) Family History Mother CAD (coronary artery disease) Diabetes Myocardial infarction Brother CAD (coronary artery disease) Hx of CABG Brother CAD (coronary artery disease) Surgical History History of esophagogastroduodenoscopy (EGD) Hx of right cataract extraction Hx of left cataract extraction Hx of colonoscopy Hx of foot surgery History of left-sided carotid endarterectomy (2000) 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) Social History Smoking Status: Former smoker alcohol intake: current details: Rare substance use type: does not use caffeine: Yes Type: coffee Number of servings: 3 ROS ROS Narrative Review of Systems: Constitutional: Patient denies fever or chills. Eyes: Patient denies changes in vision or discharge from eyes. ENT: Patient denies runny nose, sore throat or ear pain. Resp: Patient denies SOB or cough. CV: Patient denies chest pain, palpitations or heart racing. GI: Patient admits to abdominal bloating and diarrhea after recent antibiotics. He denies nausea or vomiting. : Patient admits to decreased UOP after his Lasix was held. Negative dysuria or hematuria. MSK: Patient denies arthralgias or myalgias. Skin: Patient denies rash, abscess or jaundice. Psych: Patient denies symptoms of uncontrolled depression or anxiety. Neuro: Patient denies headache, paresthesias or focal neurologic deficits. Allergy: Patient denies lip swelling, tongue swelling or urticaria. Hematology: Patient admits to easy bleeding on Eliquis. Endocrinology: Patient denies polyuria, polydipsia and polyphagia. 14 point ROS otherwise negative except for positives noted above in HPI. Vital Signs Vital Signs Vital Signs: 05/27/24 16:57 Temperature 97.5 F L Temperature Source Temporal Pulse Rate 72 Respiratory Rate 18 Blood Pressure 134/101 H Blood Pressure Mean 112 Pulse Ox 94 Oxygen Delivery Method Nasal Cannula Physical Exam Const alert, oriented x3, no apparent distress and average body habitus General Appearance: cooperative HEENT normocephalic, head/scalp atraumatic, hearing grossly normal bilaterally and moist oral mucous membranes Eyes PERRL and EOMs intact bilaterally Neck no lymphadenopathy and supple Resp normal respiratory effort, no retractions, no use of accessory muscles and clear to auscultation bilaterally Cardio regular rate and regular rhythm GI soft to palpation and non-tender GI Narrative: Mild abdominal distention noted. Extremity Extremity Narrative: 1-2+ symmetrical bilateral LE edema. Skin Skin Narrative: Patient has no evidence of rash, abscess or jaundice. Neuro oriented x3, CN's II-XII intact bilaterally, moves all extremities and no focal motor deficits Sensorium / Orientation: awake, alert, oriented to person, oriented to place and oriented to time Speech: speech normal Psych affect normal Results Medical Records Data Attestation: I reviewed the patient's medical records Lab / Micro Data Attestation: I reviewed the patient's lab results. 05/28/24 05:03 05/28/24 05:03 Labs: Laboratory Results - last 24 hr 05/27/24 17:39: WBC 15.1 H, RBC 3.49 L, Hgb 10.8 L, Hct 33.2 L, MCV 95.1 H, MCH 30.9, MCHC 32.5, RDW Std Deviation 46.9 H, RDW Coeff of [place] 13.5, Plt Count 361, MPV 10.4, Immature Gran % (Auto) 0.500, Neut % (Auto) 83.2 H, Lymph % (Auto) 4.4 L, [place] % (Auto) 11.3 H, Eos % (Auto) 0.3, Baso % (Auto) 0.3, Absolute Neuts (auto) 12.6 H, Absolute Lymphs (auto) 0.66 L, Nucleated RBC % 0, Sodium 137, Potassium 4.3, Chloride 101, Carbon Dioxide 28.0, Anion Gap 8, BUN 48 H, C reatinine 2.17 H, Est GFR (MDRD) Af Amer 37 L, Est GFR (MDRD) Non-Af 31 L, B UN/Creatinine Ratio 22.1 H, Glucose 146 H, Calcium 9.0, Total Bilirubin 0.90, A ST 49 H, ALT 115 H, Alkaline Phosphatase 136 H, B-Natriuretic Peptide 1588.8 H, Total Protein 7.8, Albumin 3.3, Globulin 4.5 H, Albumin/Globulin Ratio 0.7 L, Lipase 19 05/27/24 18:25: Urine Color Yellow, Urine Clarity Clear, Urine pH 6.0, Ur Specific [place] 1.020, Urine Protein 30 H, Urine Glucose (UA) Normal, Urine Ketones Negative, Urine Occult Blood Negative, Urine Nitrite Negative, Urine Bilirubin Negative, Urine Urobilinogen Normal, Ur Leukocyte Esterase Negative, Urine RBC 0 SEEN, Urine WBC 0-5 SEEN, Ur Squamous Epith Cells 0-5 SEEN, Urine Bacteria 0 SEEN, Urine Mucus 0 SEEN Imaging Radiology Impression Abdomen/Pelvis CT 05/27/24 17:18 IMPRESSION: Moderate bilateral pleural effusions increased. Probable anemia. Duodenal stent unchanged. The inguinal hernia containing a loop of sigmoid colon without obstruction. Unchanged. Electronically Signed: Ady Branham MD at 18:54 EST Reading Location ID and State: [id number] Tel , Service support , Chest X-Ray 05/27/24 17:25 IMPRESSION: Moderate CHF increased. New left perihilar infiltrate. Electronically Signed: Ady Branham MD at 18:39 EST Reading Location ID and State: [address] [place] [address] Tel , Service support , Assessment & Plan Assessment/Plan (1) CHF (congestive heart failure): QUALIFIERS: Heart failure chronicity: acute on chronic Heart failure type: combined systolic and diastolic Qualified Code(s): I50.43 - Acute on chronic combined systolic (congestive) and diastolic (congestive) heart failure (2) Diarrhea of presumed infectious origin: (3) Leukocytosis: QUALIFIERS: Leukocytosis type: unspecified Qualified Code(s): D 72.829 - Elevated white blood cell count, unspecified (4) CKD (chronic kidney disease) stage 4, GFR 15-29 ml/min: (5) H/O coronary artery bypass surgery: (6) Left bundle branch block: (7) Left carotid artery stenosis: (8) Essential hypertension: (9) Hyperlipidemia: QUALIFIERS: Hyperlipidemia type: unspecified Qualified Code(s): E 78.5 - Hyperlipidemia, unspecified PLAN: Plan 1. Iatrogenic AE of Chronic Systolic CHF; with LVEF ~35% with elevated BNP of 1,558.8 pg/mL present on admission plus CXR positive for moderate interstitial edema precipitated by stopping Lasix due to escalating creatinine levels with suspected evolving Cardiorenal Syndrome - Admit to PCU. Pretreat with IV Albumin and give Lasix 40 mg IV daily. Follow strict I's & O's. Serialize troponin. Recent echocardiogram noted. 2. Leukocytosis of 15.1K present on admission with Diarrhea after recent antibiotic treatment concerning for possible Clostridium difficile Colitis with abdominal bloating complicating #1 - Start empiric Flagyl 500 mg IV 3 times daily until stool studies confirmed negative for C. difficile A & B toxin PCR. Also start probiotic to replenish normal seb. 3. Recent admission here from May 07, 2024 to May 12, 2024 for treatment of Bilateral Pneumonia and AE CHF with elevated troponin attributed to acute cardiac strain with him having finished his oral Levaquin as prescribed with patient still Full Code adding to the medical complexity of #1 & #2 - Noted. 4. CKD; stage IV with baseline creatinine of ~2.17 mg/dL and elevating creatinine with diuresis compounding #1 -#3 - Patient will receive IV Albumin prior to diuresis to help minimize risk of [place]. We will consult nephrology to see patient on-rounds in the AM for further recommendations as he may not be considered a strong candidate for HD given his advanced age and multiple comorbidities. 5. History Paroxysmal Atrial Fibrillation; on Amiodarone and Eliquis - Resume Amiodarone and Eliquis as previous. 6. CAD; s/p CABG x 5 (2007) - Noted. 7. History of LBBB - Noted. 8. CKD; stage IV with baseline creatinine of ~2.17 mg/dL 9. Essential hypertension - Continue current regimen. 10. Hyperlipidemia - Maintain statin therapy. 11. Former tobacco abuse - Noted. 12. History of Left posterior parietal TIA/CVA (2000) - Noted. 13. History of syncope and traumatic SAH (2000) - Noted. 14. History of Left carotid stenosis; s/p Left carotid endarterectomy (2000) - Noted. 15. History of claudication - Stable. 16. Chronic anemia - Stable with hemoglobin of 10.8 g/dL present on admission. 17. GERD; with history of Bales's Esophagus and Esophageal Stricture on PPI BID - Resume current management. 18. History of Hiatal Hernia - Noted. 19. OA - Give Tylenol prn. 20. DVT prophylaxis - Patient already on Eliquis for #5 which will be continued. Total time: Approximately (but not less than) 75 minutes. Charges/Coding Visit Charges Inpatient E&M: 90715 Init Hosp L3
[2024-05-27 19:15] VITALS: O2SAT 87
[2024-05-27 19:16] LABS: Differential Comment SCANNED; Toxic Granulation 2+
[2024-05-27 19:21] VITALS: BP 144/51; PULSE 66; RESP 18; TEMP 36.9; O2SAT 93
[2024-05-27] MEDS: Furosemide 100 MG/10 ML Vial 80 MG IV (19:23)
[2024-05-27] MEDS: Polyethylene Glycol 3350 17 GM PACKET PO (19:28)
[2024-05-27 21:00] VITALS: BP 162/60; PULSE 69; RESP 20; TEMP 36.7; O2SAT 93; BMI 22.3
--- NOTE | 2024-05-27 21:50 | RAD_ITS ---
STUDY: X-RAY CHEST REASON FOR EXAM: Male, 88 years old. AE CHF. TECHNIQUE: Single frontal view of the chest. COMPARISON: May 27, 2024 FINDINGS: Sternotomy wires. Moderate bilateral interstitial infiltrates. Small bilateral pleural effusions. Moderate cardiomegaly. Normal mediastinum and sammy. Normal visualized pulmonary arteries. Normal visualized aortic arch and descending thoracic aorta. Normal visualized thoracic spine. Multiple nondisplaced rib fractures bilaterally, age indeterminate. No pneumothorax. Mesh stent upper abdomen. RAD/Chest 1 View (Portable) IMPRESSION: Moderate bilateral interstitial infiltrates and small effusions unchanged. Bilateral rib fractures, age indeterminate. No pneumothorax. Electronically Signed: Ady Branham MD at 23:25 EST ,
[2024-05-27] MEDS: Furosemide 40 MG/4 ML Vial IV (22:45)
[2024-05-27] MEDS: Albumin Human 25% (100 mL) 25 GM/100 ML BAG IV (22:45)
[2024-05-27 22:46] VITALS: BP 162/60; PULSE 69
[2024-05-27] MEDS: 0.9% Saline Lock 10 ML Syringe IV (22:46)
[2024-05-27] MEDS: Pantoprazole Sodium 20 MG Tablet PO (22:46)
[2024-05-27] MEDS: Metoprolol Tartrate 50 MG Tablet PO (22:46)
[2024-05-27] MEDS: APIXABAN 2.5 MG TABLET (WCH) PO (22:46)
[2024-05-27] MEDS: Atorvastatin Calcium 20 MG Tablet PO (22:46)
[2024-05-28] VITALS (9 sets, daily range): BP systolic 129–148; BP diastolic 54–87; PULSE 63–73; RESP 16–20; TEMP 36.4–36.8; O2SAT 91–94; BMI 22.3
[2024-05-28 03:59] LABS: Troponin-I HS 21 pg/mL (3.0-78.0)
--- NOTE | 2024-05-28 05:40 | RAD_ITS ---
EXAM: XR CHEST, 1 VIEW CLINICAL INDICATION: AE CHF TECHNIQUE: Frontal view of the chest. COMPARISON: XR Chest dated 05/27/2024 FINDINGS: LUNGS AND PLEURAL SPACES: Persistent central pulmonary opacities which may represent pneumonia and/or pulmonary edema. Persistent small bilateral pleural effusions. HEART: Stable mild cardiomegaly. Surgical changes of coronary artery bypass graft (CABG). MEDIASTINUM: No mediastinal or hilar mass. BONES/JOINTS: Left-sided rib fracture deformities again noted. OTHER FINDINGS: No interval change. RAD/Chest 1 View (Portable) IMPRESSION: No acute findings in the chest. Electronically Signed: Prateek Chavez MD at 8:53 EST ,
[2024-05-28 05:48] LABS: Absolute Lymphocyte Count 0.78 X10^3/uL (0.83-4.51); Absolute Neutrophil Count 8.5 X10^3/uL (2.0-7.7); Basophil# 0.03 X10^3/uL; Basophil% 0.3 % (0-1); Eosinophil# 0.05 X10^3/uL; Eosinophils% 0.5 % (0-5); Hematocrit 30.5 % (40-54); Hemoglobin 9.9 g/dL (13.0-16.5); Lymphocyte # 0.78 X10^3/ul (0.83-4.51); Lymphocyte % 7.2 % (19-41); Mean Corp Hgb Conc 32.5 g/dL (32-36); Mean Corpuscular Hgb 30.8 pg (27.0-32.0); Mean Platelet Vol. 10.6 fl (6.2-12.0); Monocyte# 1.34 X10^3/uL; Monocyte% 12.4 % (0-10); NRBC Flagged by Analyzer 0 % (0-5); Neutrophil # 8.53 X10^3/uL (2.7-7.7); Neutrophil % 79.1 % (47-70); Platelet Count 293 K/mm3 (150-450); RBC Distribution Width CV 13.3 % (11.6-14.6); RBC Distribution Width SD 46.7 fl (35.1-43.9); Red Blood Count 3.21 M/mm3 (4.6-6.2); White Blood Count 10.8 K/mm3 (4.4-11.0)
[2024-05-28] MEDS: metroNIDAZOLE 500 MG/100 ML BAG 100 MG IV (05:59)
[2024-05-28 06:01] LABS: Troponin-I HS 21 pg/mL (3.0-78.0)
[2024-05-28 07:12] LABS: ALB/GLOB Ratio 0.9 RATIO (0.9-2.4); AST(SGOT) 62 U/L (15-37); Alanine Aminotransfer ALT/SGPT 102 U/L (16-61); Albumin, Serum 3.4 g/dL (3.2-5.0); Alkaline Phosphatase 147 U/L (45-117); Anion Gap 6 (5-15); BUN 48 mg/dL (7-18); BUN/Creat Ratio 20.3 RATIO (10-20); Calcium,Total 8.8 mg/dL (8.5-10.1); Chloride 99 mmol/L (98-107); Creatinine, Serum 2.36 mg/dL (0.70-1.30); EST Glomerular Filtration Rate 28 mL/min (>60); Est Glom Filt Rate - Afr Amer 34 mL/min (>60); Estimated Creatinine Clearance 19.56 ml/min; Globulin 3.9 g/dL (2.2-4.2); Glucose 119 mg/dL (74-106); Magnesium 1.9 mg/dL (1.6-2.6); Phosphorus 4.4 mg/dL (2.5-4.9); Potassium 4.1 mmol/L (3.5-5.1); Protein, Total 7.3 g/dL (6.4-8.2); Sodium Level 137 mmol/L (136-145)
[2024-05-28 07:31] LABS: BNP,B-Type NATRIURETIC PEPTIDE 1619.5 pg/mL (0-100)
[2024-05-28] MEDS: amLODIPine 5 MG Tablet PO (08:18)
[2024-05-28] MEDS: Metoprolol Tartrate 50 MG Tablet PO ×2 (08:18→22:36)
[2024-05-28] MEDS: Cholecalciferol (VIT D3) 25 MCG TABLET (1,000 UNITS) PO (08:18)
[2024-05-28] MEDS: Pantoprazole Sodium 20 MG Tablet PO ×2 (08:18→22:36)
[2024-05-28] MEDS: Amiodarone 200 MG Tablet PO (08:19)
[2024-05-28] MEDS: Aspirin E.C. 81 MG Tablet PO (08:19)
[2024-05-28] MEDS: APIXABAN 2.5 MG TABLET (WCH) PO ×2 (08:19→22:36)
[2024-05-28 09:21] LABS: Troponin-I HS 20 pg/mL (3.0-78.0)
[2024-05-28] MEDS: 0.9% Saline Lock 10 ML Syringe IV (10:45)
[2024-05-28] MEDS: Furosemide 40 MG/4 ML Vial IV (10:45)
--- NOTE | 2024-05-28 11:15 | PCM.PN.HOSP ---
Reason for Visit Reason for Visit: Diagnoses Elevated white blood cell count, unspecified (05/27/24) Hyperlipidemia, unspecified (05/27/24) Essential (primary) hypertension (05/27/24) Atherosclerotic heart disease of [place] coronary artery without angina pectoris (05/27/24) Left bundle-branch block, unspecified (05/27/24) Acute on chronic combined systolic (congestive) and diastolic (congestive) heart failure (05/27/24) Heart failure, unspecified (05/27/24) Occlusion and stenosis of left carotid artery (05/27/24) Chronic kidney disease, stage 4 (severe) (05/27/24) Diarrhea, unspecified (05/27/24) Presence of aortocoronary bypass graft (05/27/24) Objective Data Objective Data Vital Signs: Vital Signs Temp Pulse Resp BP Pulse Ox O2 Del Method O2 Flow Rate 97.8 F 63 17 140/55 H 93 Nasal Cannula 3 05/28/24 08:29 05/28/24 08:29 05/28/24 10:00 05/28/24 08:29 05/28/24 08:29 05/28/24 10:00 05/28/24 10:00 Oxygen Flow Rate (L/min) 3 Oxygen Delivery Method Nasal Cannula Weight: 138 lb 3.677 oz Body Mass Index (BMI) 22.3 Intake & Output: Intake and Output for Last 24 Hours 05/26/24 05/27/24 05/28/24 23:59 23:59 23:59 Intake Total 240 / 240 200 / 200 Output Total 350 / 350 625 / 625 Balance -110 / -110 -425 / -425 Lab / Micro Data 05/28/24 05:03 05/28/24 05:03 Labs: Laboratory Results - last 24 hr 05/27/24 17:39: WBC 15.1 H, RBC 3.49 L, Hgb 10.8 L, Hct 33.2 L, MCV 95.1 H, MCH 30.9, MCHC 32.5, RDW Std Deviation 46.9 H, RDW Coeff of [place] 13.5, Plt Count 361, MPV 10.4, Immature Gran % (Auto) 0.500, Neut % (Auto) 83.2 H, Lymph % (Auto) 4.4 L, [place] % (Auto) 11.3 H, Eos % (Auto) 0.3, Baso % (Auto) 0.3, Absolute Neuts (auto) 12.6 H, Absolute Lymphs (auto) 0.66 L, Nucleated RBC % 0, Differential Comment SCANNED, Diff Path Review May foll, Toxic Granulation 2+, Sodium 137, Potassium 4.3, Chloride 101, Carbon Dioxide 28.0, Anion Gap 8, BUN 48 H, Creatinine 2.17 H, Est GFR (MDRD) Af Amer 37 L, Est GFR (MDRD) Non-Af 31 L, BUN/Creatinine Ratio 22.1 H, Glucose 146 H, Calcium 9.0, Total Bilirubin 0.90, AST 49 H, ALT 115 H, Alkaline Phosphatase 136 H, B-Natriuretic Peptide 1588.8 H, Total Protein 7.8, Albumin 3.3, Globulin 4.5 H, Albumin/Globulin Ratio 0.7 L, Lipase 19 05/27/24 18:25: Urine Color Yellow, Urine Clarity Clear, Urine pH 6.0, Ur Specific [place] 1.020, Urine Protein 30 H, Urine Glucose (UA) Normal, Urine Ketones Negative, Urine Occult Blood Negative, Urine Nitrite Negative, Urine Bilirubin Negative, Urine Urobilinogen Normal, Ur Leukocyte Esterase Negative, Urine RBC 0 SEEN, Urine WBC 0-5 SEEN, Ur Squamous Epith Cells 0-5 SEEN, Urine Bacteria 0 SEEN, Urine Mucus 0 SEEN 05/28/24 02:42: Troponin I High Sens 21 05/28/24 05:03: WBC 10.8, RBC 3.21 L, Hgb 9.9 L, Hct 30.5 L, MCV 95.0 H, MCH 30.8, MCHC 32.5, RDW Std Deviation 46.7 H, RDW Coeff of [place] 13.3, Plt Count 293, MPV 10.6, Immature Gran % (Auto) 0.500, Neut % (Auto) 79.1 H, Lymph % (Auto) 7.2 L, [place] % (Auto) 12.4 H, Eos % (Auto) 0.5, Baso % (Auto) 0.3, Absolute Neuts (auto) 8.5 H, Absolute Lymphs (auto) 0.78 L, Nucleated RBC % 0, Sodium 137, Potassium 4.1, Chloride 99, Carbon Dioxide 32.0, Anion Gap 6, BUN 48 H, Creatinine 2.36 H, Estim Creat Clear Calc 19.56, Est GFR (MDRD) Af Amer 34 L, Est GFR (MDRD) Non-Af 28 L, BUN/Creatinine Ratio 20.3 H, Glucose 119 H, Calcium 8.8, Phosphorus 4.4, Magnesium 1.9, Total Bilirubin 1.40 H, AST 62 H, ALT 102 H, Alkaline Phosphatase 147 H, Troponin I High Sens 21, B-Natriuretic Peptide 1619.5 H, Total Protein 7.3, Albumin 3.4, Globulin 3.9, Albumin/Globulin Ratio 0.9, TSH 2.820 05/28/24 08:46: Troponin I High Sens 20 Micro: Microbiology 05/28/24 08:45 Stool Stool Lactoferrin - Final Radiography Diagnostic Testing: Radiology Impression Abdomen/Pelvis CT 05/27/24 17:18 IMPRESSION: Moderate bilateral pleural effusions increased. Probable anemia. Duodenal stent unchanged. The inguinal hernia containing a loop of sigmoid colon without obstruction. Unchanged. Electronically Signed: Ady Branham MD at 18:54 EST Reading Location ID and State: [address] [place] [address] Tel , Service support , Chest X-Ray 05/27/24 17:25 IMPRESSION: Moderate CHF increased. New left perihilar infiltrate. Electronically Signed: Ady Branham MD at 18:39 EST Reading Location ID and State: [employer] [place] Tel , Service support , Chest X-Ray 05/27/24 21:50 IMPRESSION: Moderate bilateral interstitial infiltrates and small effusions unchanged. Bilateral rib fractures, age indeterminate. No pneumothorax. Electronically Signed: Ady Branham MD at 23:25 EST Reading Location ID and State: [employer] [place] Tel , Service support , Chest X-Ray 05/28/24 05:40 IMPRESSION: No acute findings in the chest. Electronically Signed: Prateek Chavez MD at 8:53 EST , Physical Exam Narrative Seen and examined. Overall, patient feels better with regards to shortness of breath leg swelling. Patient was admitted with decreased urine output renal Lasix was started for increased creatinine. He completed antibiotic for pneumonia after recent discharge from the hospital. Bilateral leg swelling, right more than left probably after CABG. Recently had venous duplex on May 09 and no DVT was found. Physical exam General: Alert, Oriented x3, Cooperative HEENT: Atraumatic, PERRLA, EOMI, Normocephalic Oral: No Gingival or Mucosal Lesions/ Ulcerations Neck: Supple, No JVD, Negative Carotid Bruits Chest wall/Lungs: Air entry diminished in bilateral lung bases. Mild basilar coarse crepitations. Cardiovascular: Regular rate, Regular Rhythm, Normal S1, Normal S2, systolic murmur. No DVT Abdomen: Bowel Sounds Present, Soft, Non Tender, Non-Distended : No dysuria. No renal angle tenderness. No suprapubic tenderness. Extremities: Bilateral pitting right more than left edema. Right is chronically swollen as per the , Capillary Refill Less than 3 Seconds Skin: No rashes, No breakdown Musculoskeletal: No Tenderness to Palpation of Joints or Extremities Neurological: Cranial nerves II-XII grossly intact, DTR 2+/4. No acute focal neurological deficit. Psych/Mental Status: Normal Affect, Appropriate. Assessment & Plan Assessment/Plan (1) CHF (congestive heart failure): QUALIFIERS: Heart failure chronicity: acute on chronic Heart failure type: combined systolic and diastolic Qualified Code(s): I50.43 - Acute on chronic combined systolic (congestive) and diastolic (congestive) heart failure (2) Diarrhea of presumed infectious origin: (3) Leukocytosis: QUALIFIERS: Leukocytosis type: unspecified Qualified Code(s): D72.829 - Elevated white blood cell count, unspecified (4) CKD (chronic kidney disease) stage 4, GFR 15-29 ml/min: (5) H/O coronary artery bypass surgery: (6) Left bundle branch block: (7) Left carotid artery stenosis: (8) Essential hypertension: (9) Hyperlipidemia: QUALIFIERS: Hyperlipidemia type: unspecified Qualified Code(s): E78.5 - Hyperlipidemia, unspecified PLAN: Plan 88-year-old male admitted with generalized abdominal bloating, some loose bowel movement due to antibiotics and put on fiber and then did not moved the bowel in 24 hours. Patient urinating less amount as he was taken off the diuretic because of a small increase in creatinine. Denies chest pain or any shortness of breath fever chills here for evaluation 1. Iatrogenic AE of Chronic combined CHF; with LVEF ~35% with elevated BNP of 1,558.8 pg/mL present on admission plus CXR positive for moderate interstitial edema precipitated by stopping Lasix due to escalating creatinine levels with suspected evolving Cardiorenal Syndrome - Admit to PCU. On Lasix 40 mg IV daily. On IV albumin 2 dosages. Heart failure core measures including intake and output, fluid restriction less than 1500 mL, daily weight monitoring, kidney and electrolytes monitoring. 05/28: Serial high-sensitivity troponins are normal in range. Recent echo on May 08, 2024 shows EF 35%, stage II diastolic dysfunction normal LV size PASP 50 mmHg, 1-2+ TR, 1-2+ eccentric MR overall suggestive of chronic HFrEF and HFpEF and valvular heart disease and moderate pulmonary artery hypertension 2. Possible antibiotic associated diarrhea with leukocytosis: Stool for C. difficile was negative for PCR. Lactoferrin positive. Enteric pathogen panel also negative. On probiotic. Discontinue Flagyl. 3. Recent admission here from May 07, 2024 to May 12, 2024 for treatment of Bilateral Pneumonia and AE CHF with elevated troponin attributed to acute cardiac strain with him having finished his oral Levaquin as prescribed with patient still Full Code adding to the medical complexity: Noted. 4. CKD; stage IV with baseline creatinine of ~2.17 mg/dL and elevating creatinine: Agree with IV albumin and 1 more dose ordered. [employer] consulted and discussed with him. Most likely cardiorenal syndrome. Monitor kidney function. 5. Cardiovascular conditions including paroxysmal A-fib on amiodarone and Eliquis, CAD status post 5 vessel CABG 2007, LBBB, left carotid stenosis status post left CEA and PAD: No active issues. 6. Hypertension and dyslipidemia: Blood pressure is controlled. On amlodipine. Patient was on HCTZ but during last hospital stay when furosemide was started HCT was discontinued. Discussed with the that he should not be on 2 diuretics. 7. Left posterior parietal TIA/CVA, traumatic SAH and syncope in the past: No active issues. 8. Chronic anemia - Stable with hemoglobin of 10.8 g/dL present on admission. H&H 9.9/30.5%. Platelet count normal. 9. Other comorbidities including GERD with history of Bales's esophagus, esophageal stricture: Patient had esophageal stenting as per the . On PPI. Hiatus hernia. Chronic degenerative arthritis on Tylenol as needed. 10. DVT prophylaxis - Patient already on Eliquis, continued. Charges/Coding Visit Charges Inpatient E&M: 23699 Subs Hosp L2
[2024-05-28] MEDS: Lactobacillis Acidophilus 1 CAP PO ×2 (16:22→22:36)
[2024-05-28] MEDS: Albumin Human 25% (100 mL) 25 GM/100 ML BAG IV (16:27)
--- NOTE | 2024-05-28 18:43 | CON.PCM.RE_ITS ---
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/min: (3) CHF (congestive heart failure): QUALIFIERS: Heart failure chronicity: acute on chronic Heart failure type: combined systolic and diastolic Qualified Code(s): I50.43 - Acute on chronic combined systolic (congestive) and diastolic (congestive) heart failure (4) Left ventricular systolic dysfunction: (5) HTN (hypertension), benign: PLAN: Plan Impression/Plan: The patient is a 88-year-old male with past history of CKD stage G4, hypertension, CAD status post CABG, HFrEF (EF 35%), paroxysmal atrial fibrillation, PAD status post carotid endarterectomy, anemia, Bales's esophagus/esophageal stricture, and hyperlipidemia. The patient is admitted to the hospital on 05/27/2024 with decompensated heart failure. Nephrology is asked see the patient because of CHADWICK on CKD. Acute kidney injury on chronic kidney disease stage G4. Prior to recent hospital admission in April 2024, serum creatinine has been around 1.80 to 2.00 mg/dL. Since April 2024, we have seen downward trend of renal function. The patient presented to hospital with serum creatinine of 2.17 mg/dL on 05/27/2024 which has increased to 2.36 mg/dL today on 05/28/2024. During the last admission to the hospital in April 2024, serum creatinines been as high as 2.65 mg/dL on 05/11/2024. Urinalysis from 05/27/[address] abdomen from 05/27/2024 was negative for hydronephrosis. CHADWICK is likely due to cardiorenal cause versus progression of underlying CKD. Agree with continuing to diurese the patient. If CHADWICK is primarily due to cardiorenal syndrome, serum creatinine should stabilize or even improved. Will continue to monitor renal function, volume status, acid-base and electrolytes. Hypertension. BP is under controlled on current antihypertensives. Will continue to monitor BP. HFrEF. Patient is being diuresed. Will monitor renal function while he is being diuresed. Because of CHADWICK on CKD, the patient is not on RAAS gretta. GFR is high enough that SGLT2 inhibitor can be added. May want to also consider adding hydralazine/nitrate. I will defer to primary service and cardiology. HPI Consult Data Date of Consult: 05/28/24 HPI Narrative HPI Narrative: The patient is a 88-year-old male with past history of CKD stage G4, hypertension, CAD status post CABG, HFrEF (EF 35%), paroxysmal atrial fibrillation, PAD status post carotid endarterectomy, anemia, Bales's esophagus/esophageal stricture, and hyperlipidemia. The patient presented to hospital on 05/27/2024 with abdominal distention and weight gain. Patient is admitted to the hospital for treatment of decompensated heart failure. Nephrology is asked see the patient because of CHADWICK on CKD in the setting of heart failure. Patient presents with serum creatinine of 2.17 mg/dL on 05/27/2024. Serum creatinine has increased to 2.36 mg/dL today on 05/28/2024. Prior to admission to the hospital in April 2024, baseline serum creatinines been around 1.80 to 2.00 mg/dL. The patient feels better since admission. Dyspnea has improved. The patient denies chest pain or pressure. There is no nausea, vomiting, or diarrhea. Edema of the extremities has also resolved. The patient denies LUTS. [facility] Medical History Coronary artery disease Chronic kidney disease Paroxysmal atrial fibrillation 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, <= 40%) Esophageal obstruction Hiatal hernia Kidney disease TIA (transient ischemic attack) Hypertension Wears hearing aid Wears glasses Wears partial dentures Wears dentures History of renal disease High cholesterol Easy bruising Injury of head and neck Difficulty swallowing History of hiatal hernia Gastric reflux Former smoker Leg cramps History of pain when walking History of edema History of echocardiogram Cardiology follow-up encounter Syncope (10/2020) History of CVA (cerebrovascular accident) Traumatic subarachnoid hemorrhage (10/2020) Hyperlipidemia Claudication Barretts esophagus TIA (transient ischemic attack) Atherosclerotic heart disease of [place] coronary artery without angina pectoris Left bundle branch block Carotid bruit Left carotid artery stenosis Angiopathy, peripheral Home Medications ?Medication ?Instructions ?Recorded ?Last Taken ?Type aspirin 81 mg tablet,delayed 81 mg PO QDAY SUPPLEMENT 11/04/17 02/26/24 History release (Adult Low Dose Aspirin) cholecalciferol (vitamin D3) 25 1,000 unit PO QDAY SUPPLEMENT 03/11/23 02/26/24 History mcg (1,000 unit) capsule omeprazole 20 mg capsule,delayed 20 mg PO BID GERD #180 caps 02/11/24 02/28/24 Rx release atorvastatin 20 mg tablet 20 mg PO QPM H;D 03/27/24 Unknown History amiodarone 200 mg tablet 200 mg PO DAILY #30 tabs 05/12/24 Unknown Rx apixaban 5 mg tablet (Eliquis) 2.5 mg (1/2 x 5 mg) PO BID #30 tabs 05/12/24 Unknown Rx furosemide 40 mg tablet (Lasix) 40 mg PO DAILY #30 tabs 05/12/24 Unknown Rx metoprolol tartrate 50 mg tablet 50 mg PO BID #60 tabs 05/12/24 Unknown Rx amlodipine 10 mg tablet 5 mg PO DAILY BP 05/27/24 Unknown History Allergy/AdvReac Type Severity Reaction Status Date / Time Iodinated Contrast Media AdvReac Severe CKD Verified 05/07/24 14:02 (Iodinated Contrast- Oral and IV Dye) Family History Mother CAD (coronary artery disease) Diabetes Myocardial infarction Brother CAD (coronary artery disease) Hx of CABG Brother CAD (coronary artery disease) Surgical History History of esophagogastroduodenoscopy (EGD) Hx of right cataract extraction Hx of left cataract extraction Hx of colonoscopy Hx of foot surgery History of left-sided carotid endarterectomy (2000) 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) Social History Smoking Status: Former smoker alcohol intake: current details: Rare substance use type: does not use caffeine: Yes Type: coffee Number of servings: 3 ROS ROS Narrative As per HPI, otherwise noncontributory. Physical Exam Narrative General: Alert and oriented x3, NAD. HEENT: Normocephalic, atraumatic. Mucous membrane moist without erythema. PERRLA, EOMI. Hearing is intact. Neck: Supple, no JVD. Trachea is midline. No thyromegaly or lymphadenopathy. Cardiovascular: Normal S1, S2. No rubs, murmurs, or gallops. Respiratory: Decreased breath sound at bases bilaterally. No wheezing, rhonchi, or rales. Abdomen: Normal bowel sounds, soft, nontender, no guarding or rebound, no organomegaly. Extremities: No clubbing, cyanosis, or edema. Musculoskeletal: Full passive range of motion, no joint swelling. Psychiatric: Normal mood and affect. Skin: Warm and dry, no rash. Neurologic: Cranial nerve II to XII are grossly intact. No focal neurologic deficits. Lab / Micro Data 05/28/24 05:03 05/28/24 05:03 Labs: Laboratory Results - last 24 hr 05/27/24 17:39: Differential Comment SCANNED, Diff Path Review November foll, Toxic Granulation 2+ 05/27/24 18:25: Urine Color Yellow, Urine Clarity Clear, Urine pH 6.0, Ur Specific [place] 1.020, Urine Protein 30 H, Urine Glucose (UA) Normal, Urine Ketones Negative, Urine Occult Blood Negative, Urine Nitrite Negative, Urine Bilirubin Negative, Urine Urobilinogen Normal, Ur Leukocyte Esterase Negative, Urine RBC 0 SEEN, Urine WBC 0-5 SEEN, Ur Squamous Epith Cells 0-5 SEEN, Urine Bacteria 0 SEEN, Urine Mucus 0 SEEN 05/28/24 02:42: Troponin I High Sens 21 05/28/24 05:03: WBC 10.8, RBC 3.21 L, Hgb 9.9 L, Hct 30.5 L, MCV 95.0 H, MCH 30.8, MCHC 32.5, RDW Std Deviation 46.7 H, RDW Coeff of [place] 13.3, Plt Count 293, MPV 10.6, Immature Gran % (Auto) 0.500, Neut % (Auto) 79.1 H, Lymph % (Auto) 7.2 L, [place] % (Auto) 12.4 H, Eos % (Auto) 0.5, Baso % (Auto) 0.3, Absolute Neuts (auto) 8.5 H, Absolute Lymphs (auto) 0.78 L, Nucleated RBC % 0, Sodium 137, Potassium 4.1, Chloride 99, Carbon Dioxide 32.0, Anion Gap 6, BUN 48 H, C reatinine 2.36 H, Estim Creat Clear Calc 19.56, Est GFR (MDRD) Af Amer 34 L, Est GFR (MDRD) Non-Af 28 L, BUN/Creatinine Ratio 20.3 H, Glucose 119 H, Calcium 8.8, Phosphorus 4.4, Magnesium 1.9, Total Bilirubin 1.40 H, AST 62 H, ALT 102 H, A lkaline Phosphatase 147 H, Troponin I High Sens 21, B-Natriuretic Peptide 1619.5 H, Total Protein 7.3, Albumin 3.4, Globulin 3.9, Albumin/Globulin Ratio 0.9, TSH 2.820 05/28/24 08:46: Troponin I High Sens 20 Micro: Microbiology 05/28/24 08:45 Stool Stool Lactoferrin - Final 05/28/24 08:45 Stool Enteric Bacteriology - Final 05/28/24 08:45 Stool Clostridioides difficile (PCR) - Final Imaging Radiology Impression Abdomen/Pelvis CT 05/27/24 17:18 IMPRESSION: Moderate bilateral pleural effusions increased. Probable anemia. Duodenal stent unchanged. The inguinal hernia containing a loop of sigmoid colon without obstruction. Unchanged. Electronically Signed: Ady Branham MD at 18:54 EST Reading Location ID and State: [address] [place] [address] Tel , Service support , Chest X-Ray 05/27/24 21:50 IMPRESSION: Moderate bilateral interstitial infiltrates and small effusions unchanged. Bilateral rib fractures, age indeterminate. No pneumothorax. Electronically Signed: Ady Branham MD at 23:25 EST , Chest X-Ray 05/28/24 05:40 IMPRESSION: No acute findings in the chest. Electronically Signed: Prateek Chavez MD at 8:53 EST ,
[2024-05-28] MEDS: Atorvastatin Calcium 20 MG Tablet PO (22:36)
[2024-05-29] VITALS (11 sets, daily range): BP systolic 141–155; BP diastolic 51–60; PULSE 58–69; RESP 16–24; TEMP 36.4–36.7; O2SAT 90–95; BMI 22.2
[2024-05-29] MEDS: Albuterol 2.5 MG/3 ML VIAL.NEB. INHALATION ×2 (04:42→16:44)
[2024-05-29 05:55] LABS: Albumin, Serum 3.5 g/dL (3.2-5.0); BUN 62 mg/dL (7-18); BUN/Creat Ratio 23.7 RATIO (10-20); Chloride 99 mmol/L (98-107); Creatinine, Serum 2.62 mg/dL (0.70-1.30); EST Glomerular Filtration Rate 25 mL/min (>60); Est Glom Filt Rate - Afr Amer 30 mL/min (>60); Estimated Creatinine Clearance 17.56 ml/min; Glucose 128 mg/dL (74-106); Magnesium 2.3 mg/dL (1.6-2.6); Phosphorus 4.2 mg/dL (2.5-4.9); Potassium 4.3 mmol/L (3.5-5.1); Sodium Level 137 mmol/L (136-145)
[2024-05-29] MEDS: 0.9% Saline Lock 10 ML Syringe IV (06:10)
[2024-05-29] MEDS: Lactobacillis Acidophilus 1 CAP PO ×3 (06:10→21:26)
[2024-05-29] MEDS: Furosemide 40 MG/4 ML Vial IV ×2 (06:10→21:27)
--- NOTE | 2024-05-29 08:58 | PCM.PN.REN ---
Subjective Subjective Following for CHADWICK on CKD. The patient denies chest pain. Dyspnea has improved. There is no nausea, vomiting, or diarrhea. He denies LUTS. Objective Data Objective Data Vital Signs: Vital Signs Temp Pulse Resp BP Pulse Ox O2 Del Method O2 Flow Rate 98.1 F 65 24 H 155/59 H 94 Nasal Cannula 6 05/29/24 03:04 05/29/24 04:43 05/29/24 04:43 05/29/24 03:04 05/29/24 04:43 05/29/24 08:25 05/29/24 08:25 Oxygen Flow Rate (L/min) 6 Oxygen Delivery Method Nasal Cannula Weight: 62.5 kg Body Mass Index (BMI) 22.2 Intake & Output: Intake and Output for Last 24 Hours 05/27/24 05/28/24 05/29/24 23:59 23:59 23:59 Intake Total 240 / 240 700 / 950 250 / 250 Output Total 350 / 350 955 / 1455 850 / 850 Balance -110 / -110 -255 / -505 -600 / -600 Lab / Micro Data 05/28/24 05:03 05/29/24 05:21 Labs: Laboratory Results - last 24 hr 05/28/24 08:46: Troponin I High Sens 20 05/29/24 05:21: Sodium 137, Potassium 4.3, Chloride 99, Carbon Dioxide 30.0, BUN 62 H, Creatinine 2.62 H, Estim Creat Clear Calc 17.56, Est GFR (MDRD) Af Amer 30 L, Est GFR (MDRD) Non-Af 25 L, BUN/Creatinine Ratio 23.7 H, Glucose 128 H, Calcium 9.0, Phosphorus 4.2, Magnesium 2.3, Albumin 3.5 Micro: Microbiology 05/28/24 08:45 Stool Stool Lactoferrin - Final 05/28/24 08:45 Stool Enteric Bacteriology - Final 05/28/24 08:45 Stool Clostridioides difficile (PCR) - Final Physical Exam Narrative General: Alert and oriented x3, NAD. Neck: Supple, no JVD. Trachea is midline. No thyromegaly or lymphadenopathy. Cardiovascular: Normal S1, S2. No rubs, murmurs, or gallops. Respiratory: Decreased breath sound at bases bilaterally. No wheezing, rhonchi, or rales. Abdomen: Normal bowel sounds, soft, nontender, no guarding or rebound, no organomegaly. Extremities: No clubbing, cyanosis, or edema. 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/min: (3) CHF (congestive heart failure): QUALIFIERS: Heart failure chronicity: acute on chronic Heart failure type: combined systolic and diastolic Qualified Code(s): I50.43 - Acute on chronic combined systolic (congestive) and diastolic (congestive) heart failure (4) Left ventricular systolic dysfunction: (5) HTN (hypertension), benign: PLAN: Plan Impression/Plan: The patient is a 88-year-old male with past history of CKD stage G4, hypertension, CAD status post CABG, HFrEF (EF 35%), paroxysmal atrial fibrillation, PAD status post carotid endarterectomy, anemia, Bales's esophagus/esophageal stricture, and hyperlipidemia. The patient is admitted to the hospital on 05/27/2024 with decompensated heart failure. Nephrology is asked see the patient because of CHADWICK on CKD. Acute kidney injury on chronic kidney disease stage G4. Prior to recent hospital admission in April 2024, serum creatinine has been around 1.80 to 2.00 mg/dL. Since April 2024, we have seen downward trend of renal function. The patient presented to hospital with serum creatinine of 2.17 mg/dL on 05/27/2024 which has increased to 2.62 mg/dL today on 05/29/2024. During the last admission to the hospital in April 2024, serum creatinines been as high as 2.65 mg/dL on 05/11/2024. Urinalysis from 05/27/[address] abdomen from 05/27/2024 was negative for hydronephrosis. CHADWICK is likely due to cardiorenal cause versus progression of underlying CKD. Agree with continuing to diurese the patient particularly since weight has not decreased in the last 24 hours. If CHADWICK is primarily due to cardiorenal syndrome, serum creatinine should stabilize or even improved. Will continue to monitor renal function, volume status, acid-base and electrolytes. Hypertension. BP is under controlled on current antihypertensives. Will continue to monitor BP. HFrEF. Patient is being diuresed. Will monitor renal function while he is being diuresed. Because of CHADWICK on CKD, the patient is not on RAAS gretta. GFR is high enough that SGLT2 inhibitor can be added. May want to also consider adding hydralazine/nitrate. I will defer to primary service and cardiology.
[2024-05-29] MEDS: Amiodarone 200 MG Tablet PO (09:26)
[2024-05-29] MEDS: Aspirin E.C. 81 MG Tablet PO (09:26)
[2024-05-29] MEDS: APIXABAN 2.5 MG TABLET (WCH) PO ×2 (09:27→21:27)
[2024-05-29] MEDS: amLODIPine 5 MG Tablet PO (09:27)
[2024-05-29] MEDS: Metoprolol Tartrate 50 MG Tablet PO ×2 (09:27→21:27)
[2024-05-29] MEDS: Pantoprazole Sodium 20 MG Tablet PO ×2 (09:28→21:27)
[2024-05-29] MEDS: Cholecalciferol (VIT D3) 25 MCG TABLET (1,000 UNITS) PO (09:28)
--- NOTE | 2024-05-29 09:40 | PCM.PN.HOSP ---
Reason for Visit Reason for Visit: Diagnoses Elevated white blood cell count, unspecified (05/27/24) Hyperlipidemia, unspecified (05/27/24) Essential (primary) hypertension (05/27/24) Atherosclerotic heart disease of [place] coronary artery without angina pectoris (05/27/24) Left bundle-branch block, unspecified (05/27/24) Acute on chronic combined systolic (congestive) and diastolic (congestive) heart failure (05/27/24) Heart failure, unspecified (05/27/24) Heart disease, unspecified (05/27/24) Occlusion and stenosis of left carotid artery (05/27/24) Chronic kidney disease, stage 3b (05/27/24) Chronic kidney disease, stage 4 (severe) (05/27/24) Diarrhea, unspecified (05/27/24) Presence of aortocoronary bypass graft (05/27/24) Subjective Subjective Patient is an 88-year-old male admitted with progressive generalized weakness with shortness of breath bipedal edema and abdominal bloating and assessment of acute congestive heart failure made admitted to a monitored bed where patient has since been managed Objective Data Objective Data Vital Signs: Vital Signs Temp Pulse Resp BP Pulse Ox O2 Del Method O2 Flow Rate 97.5 F L 66 16 143/60 H 94 Room Air 6 05/29/24 09:08 05/29/24 09:27 05/29/24 09:08 05/29/24 09:27 05/29/24 09:08 05/29/24 09:08 05/29/24 08:25 Oxygen Flow Rate (L/min) 6 Oxygen Delivery Method Room Air Weight: 62.5 kg Body Mass Index (BMI) 22.2 Intake & Output: Intake and Output for Last 24 Hours 05/27/24 05/28/24 05/29/24 23:59 23:59 23:59 Intake Total 240 / 240 700 / 950 250 / 250 Output Total 350 / 350 955 / 1455 850 / 850 Balance -110 / -110 -255 / -505 -600 / -600 Lab / Micro Data 05/28/24 05:03 05/29/24 05:21 Labs: Laboratory Results - last 24 hr 05/29/24 05:21: Sodium 137, Potassium 4.3, Chloride 99, Carbon Dioxide 30.0, BUN 62 H, Creatinine 2.62 H, Estim Creat Clear Calc 17.56, Est GFR (MDRD) Af Amer 30 L, Est GFR (MDRD) Non-Af 25 L, BUN/Creatinine Ratio 23.7 H, Glucose 128 H, Calcium 9.0, Phosphorus 4.2, Magnesium 2.3, Albumin 3.5 Micro: Microbiology 05/28/24 08:45 Stool Stool Lactoferrin - Final 05/28/24 08:45 Stool Enteric Bacteriology - Final 05/28/24 08:45 Stool Clostridioides difficile (PCR) - Final Physical Exam Narrative GENERAL: cooperative HEENT: Atraumatic; normocephalic EYES; Anicteric, Normal Conjunctiva NECK; supple, normal thyroid, RESPIRATORY: Diminished to auscultation with bibasilar crackles CARDIOVASCULAR: Regular S1 S2, GI: soft, normoactive bowel sounds, : No Renal angle tenderness; EXTREMITIES: No edema, no clubbing, MUSCULOSKELETAL: no muscle wasting NEURO: Awake; no lateralizing signs. SKIN: No Rash PSYCH; Flat affect Assessment & Plan Assessment/Plan (1) CHF (congestive heart failure): QUALIFIERS: Heart failure type: combined systolic and diastolic Heart failure chronicity: acute on chronic Qualified Code(s): I50.43 - Acute on chronic combined systolic (congestive) and diastolic (congestive) heart failure (2) Diarrhea of presumed infectious origin: (3) Leukocytosis: QUALIFIERS: Leukocytosis type: unspecified Qualified Code(s): D72.829 - Elevated white blood cell count, unspecified (4) CKD (chronic kidney disease) stage 4, GFR 15-29 ml/min: (5) H/O coronary artery bypass surgery: (6) Left bundle branch block: (7) Left carotid artery stenosis: (8) Essential hypertension: (9) Hyperlipidemia: QUALIFIERS: Hyperlipidemia type: unspecified Qualified Code(s): E78.5 - Hyperlipidemia, unspecified PLAN: Plan Patient is an 88-year-old male admitted with progressive generalized weakness with shortness of breath bipedal edema and abdominal bloating and assessment of acute congestive heart failure made admitted to a monitored bed where patient has since been managed 1. 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 2D echo from 05/08/2024 demonstrated LVEF of 35% and PASP of 50 mmHg. Patient has been admitted to a monitored bed manage strict input and output, daily weight, low-sodium diet, fluid restriction as well as IV diuretic therapy 2.Chronic kidney disease stage IV ? Baseline creatinine 2.17. Slight worsening of patient kidney function following diuresis. Did discuss with Dr. Harrell with nephrology plan is to continue with current diuretic therapy 3. Pulmonary hypertension ? PASP from recent 2D echo demonstrated pressures of 50 mmHg complicating care 4. Paroxysmal A-fib ? Rate controlled on amiodarone patient is on systemic anticoagulation with apixaban 5. Coronary artery disease ? Status post previous CABG patient is on guideline directed medical therapy 6. Left carotid artery stenosis ? Status post CEA #7. Hypertension ? Blood pressure controlled, home medications continued with dose adjustment as needed 8. Dyslipidemia ?Patient is on statin therapy, continued at home dose 9. Previous history of traumatic SAH ? Remains stable 10. Previous history of left posterior parietal CVA ? Patient is on antiplatelet therapy as well as statin therapy 11. Anemia ? Secondary to chronic disorder monitoring H&H and transfuse if patient becomes symptomatic or hemoglobin falls below 7 12. GERD ? With Bales's esophagus and previous esophageal stricture ? Status post esophageal stenting patient is on PPI 13. Chronic hypoxic respiratory failure ? Patient is on baseline home oxygen recently prescribed following his hospitalization 14. DVT prophylaxis ? Patient is on apixaban Time spent in the patient's overall evaluation,decision-making process, review of diagnostic data, adjustment of management, discussion with other providers, nursing nursing and ancillary staff involved in patient's care documentation, 52 Minutes Charges/Coding Visit Charges Inpatient E&M: 36762 [facility] L3
--- NOTE | 2024-05-29 11:20 | CASEMGMT ---
DESTINEE CHAN chart review: patient was admitted 05/07-05/12/24 for bilateral pneumonia. See DESTINEE CHAN assessment from 05/08/24. Patient was discharged to home with home oxygen at 2lpm with exertion through [employer], family support, and follow-up plans in place. Patient returned to [facility] ED on 05/27/24 for abdominal bloating and decreased urinary output. Patient stated in the ED that he was advised to stop his Lasix 2 days prior by PCP due to worsening kidney function. Patient was admitted for acute exacerbation of CHF and diarrhea. Patient is receiving IV Lasix. Nephrology is consulted as well. DESTINEE CHAN in to discuss readmission and discharge needs with patient, at bedside. Patient states he was wearing oxygen as prescribed and taking medications as prescribed as well. Patient states he has attended follow-up appts. Patient and deny additional needs or help at discharge. Will monitor for increase in home oxygen needs as patient is currently on 6lpm. CM will continue to follow this patient and plan for a safe discharge.
[2024-05-29 14:28] LABS: Pathologist Review Reviewed
[2024-05-29] MEDS: Atorvastatin Calcium 20 MG Tablet PO (21:27)
[2024-05-30] VITALS (9 sets, daily range): BP systolic 135–149; BP diastolic 46–60; PULSE 57–76; RESP 16–18; TEMP 36.4–36.8; O2SAT 93–95; BMI 22.4
[2024-05-30 05:46] LABS: Absolute Lymphocyte Count 0.66 X10^3/uL (0.83-4.51); Absolute Neutrophil Count 7.4 X10^3/uL (2.0-7.7); Basophil# 0.03 X10^3/uL; Basophil% 0.3 % (0-1); Eosinophil# 0.09 X10^3/uL; Hematocrit 27.2 % (40-54); Hemoglobin 8.9 g/dL (13.0-16.5); Lymphocyte # 0.66 X10^3/ul (0.83-4.51); Mean Corp Hgb Conc 32.7 g/dL (32-36); Mean Corpuscular Hgb 30.9 pg (27.0-32.0); Mean Corpuscular Volume 94.4 fL (80-94); Mean Platelet Vol. 11.1 fl (6.2-12.0); Monocyte# 1.24 X10^3/uL; Monocyte% 13.1 % (0-10); NRBC Flagged by Analyzer 0 % (0-5); Neutrophil # 7.37 X10^3/uL (2.7-7.7); Neutrophil % 78.2 % (47-70); Platelet Count 243 K/mm3 (150-450); RBC Distribution Width CV 13.4 % (11.6-14.6); RBC Distribution Width SD 46.5 fl (35.1-43.9); Red Blood Count 2.88 M/mm3 (4.6-6.2); White Blood Count 9.4 K/mm3 (4.4-11.0)
[2024-05-30 06:01] LABS: Anion Gap 7 (5-15); BUN 68 mg/dL (7-18); BUN/Creat Ratio 25.8 RATIO (10-20); Calcium,Total 9.1 mg/dL (8.5-10.1); Chloride 99 mmol/L (98-107); Creatinine, Serum 2.64 mg/dL (0.70-1.30); EST Glomerular Filtration Rate 25 mL/min (>60); Est Glom Filt Rate - Afr Amer 30 mL/min (>60); Estimated Creatinine Clearance 17.54 ml/min; Glucose 117 mg/dL (74-106); Magnesium 2.1 mg/dL (1.6-2.6); Potassium 3.9 mmol/L (3.5-5.1); Sodium Level 138 mmol/L (136-145)
[2024-05-30] MEDS: Lactobacillis Acidophilus 1 CAP PO ×3 (06:21→20:41)
[2024-05-30] MEDS: 0.9% Saline Lock 10 ML Syringe IV ×2 (06:21→20:42)
[2024-05-30] MEDS: Albuterol 2.5 MG/3 ML VIAL.NEB. INHALATION ×2 (07:06→19:32)
--- NOTE | 2024-05-30 07:50 | PN.HOSP_ITS ---
Reason for Visit Reason for Visit: Diagnoses Elevated white blood cell count, unspecified (05/27/24) Hyperlipidemia, unspecified (05/27/24) Essential (primary) hypertension (05/27/24) Atherosclerotic heart disease of [place] coronary artery without angina pectoris (05/27/24) Left bundle-branch block, unspecified (05/27/24) Acute on chronic combined systolic (congestive) and diastolic (congestive) heart failure (05/27/24) Heart failure, unspecified (05/27/24) Heart disease, unspecified (05/27/24) Occlusion and stenosis of left carotid artery (05/27/24) Chronic kidney disease, stage 3b (05/27/24) Chronic kidney disease, stage 4 (severe) (05/27/24) Diarrhea, unspecified (05/27/24) Presence of aortocoronary bypass graft (05/27/24) Subjective Subjective Patient seen continues to improve clinically. Objective Data Objective Data Vital Signs: Vital Signs Temp Pulse Resp BP Pulse Ox O2 Del Method O2 Flow Rate 98.2 F 76 18 149/57 H 94 Nasal Cannula 5 05/30/24 03:35 05/30/24 07:07 05/30/24 07:07 05/30/24 03:35 05/30/24 07:07 05/30/24 07:07 05/30/24 07:07 Oxygen Flow Rate (L/min) 5 Oxygen Delivery Method Nasal Cannula Weight: 62.9 kg Body Mass Index (BMI) 22.4 Intake & Output: Intake and Output for Last 24 Hours 05/28/24 05/29/24 05/30/24 23:59 23:59 23:59 Intake Total 700 / 950 1070 / 1320 250 / 250 Output Total 955 / 1455 1250 / 1550 650 / 650 Balance -255 / -505 -180 / -230 -400 / -400 Lab / Micro Data 05/30/24 05:12 05/30/24 05:12 Labs: Laboratory Results - last 24 hr 05/27/24 17:39: Diff Path Review Reviewed 05/30/24 05:12: WBC 9.4, RBC 2.88 L, Hgb 8.9 L, Hct 27.2 L, MCV 94.4 H, MCH 30.9, MCHC 32.7, RDW Std Deviation 46.5 H, RDW Coeff of [place] 13.4, Plt Count 243, MPV 11.1, Immature Gran % (Auto) 0.400, Neut % (Auto) 78.2 H, Lymph % (Auto) 7.0 L, [place] % (Auto) 13.1 H, Eos % (Auto) 1.0, Baso % (Auto) 0.3, Absolute Neuts (auto) 7.4, Absolute Lymphs (auto) 0.66 L, Nucleated RBC % 0, Sodium 138, Potassium 3.9, Chloride 99, Carbon Dioxide 31.0, Anion Gap 7, BUN 68 H, C reatinine 2.64 H, Estim Creat Clear Calc 17.54, Est GFR (MDRD) Af Amer 30 L, Est GFR (MDRD) Non-Af 25 L, BUN/Creatinine Ratio 25.8 H, Glucose 117 H, Calcium 9.1, Phosphorus 4.0, Magnesium 2.1 Micro: Microbiology 05/28/24 08:45 Stool Stool Lactoferrin - Final 05/28/24 08:45 Stool Enteric Bacteriology - Final 05/28/24 08:45 Stool Clostridioides difficile (PCR) - Final Physical Exam Narrative GENERAL: cooperative HEENT: Atraumatic; normocephalic EYES; Anicteric, Normal Conjunctiva NECK; supple, normal thyroid, RESPIRATORY: Diminished to auscultation with bibasilar crackles CARDIOVASCULAR: Regular S1 S2, GI: soft, normoactive bowel sounds, : No Renal angle tenderness; EXTREMITIES: No edema, no clubbing, MUSCULOSKELETAL: no muscle wasting NEURO: Awake; no lateralizing signs. SKIN: No Rash PSYCH; Flat affect Assessment & Plan Assessment/Plan (1) CHF (congestive heart failure): QUALIFIERS: Heart failure chronicity: acute on chronic Heart failure type: combined systolic and diastolic Qualified Code(s): I50.43 - Acute on chronic combined systolic (congestive) and diastolic (congestive) heart failure (2) Diarrhea of presumed infectious origin: (3) Leukocytosis: QUALIFIERS: Leukocytosis type: unspecified Qualified Code(s): D 72.829 - Elevated white blood cell count, unspecified (4) CKD (chronic kidney disease) stage 4, GFR 15-29 ml/min: (5) H/O coronary artery bypass surgery: (6) Left bundle branch block: (7) Left carotid artery stenosis: (8) Essential hypertension: (9) Hyperlipidemia: QUALIFIERS: Hyperlipidemia type: unspecified Qualified Code(s): E 78.5 - Hyperlipidemia, unspecified PLAN: Plan Patient is an 88-year-old male admitted with progressive generalized weakness with shortness of breath bipedal edema and abdominal bloating and assessment of acute congestive heart failure made admitted to a monitored bed where patient has since been managed 1. 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 2D echo from 05/08/2024 demonstrated LVEF of 35% and PASP of 50 mmHg. Patient has been admitted to a monitored bed manage strict input and output, daily weight, low-sodium diet, fluid restriction as well as IV diuretic therapy ? 05/30/2024; patient continues to improve clinically currently on 4 L of oxygen 2.Chronic kidney disease stage IV ? Baseline creatinine 2.17. Slight worsening of patient kidney function following diuresis. Did discuss with Dr. Harrell with nephrology plan is to continue with current diuretic therapy ? 05/30/2024 kidney function remains fairly stable 3. Pulmonary hypertension ? PASP from recent 2D echo demonstrated pressures of 50 mmHg complicating care 4. Paroxysmal A-fib ? Rate controlled on amiodarone patient is on systemic anticoagulation with apixaban 5. Coronary artery disease ? Status post previous CABG patient is on guideline directed medical therapy 6. Left carotid artery stenosis ? Status post CEA #7. Hypertension ? Blood pressure controlled, home medications continued with dose adjustment as needed 8. Dyslipidemia ?Patient is on statin therapy, continued at home dose 9. Previous history of traumatic SAH ? Remains stable 10. Previous history of left posterior parietal CVA ? Patient is on antiplatelet therapy as well as statin therapy 11. Anemia ? Secondary to chronic disorder monitoring H&H and transfuse if patient becomes symptomatic or hemoglobin falls below 7 12. GERD ? With Bales's esophagus and previous esophageal stricture ? Status post esophageal stenting patient is on PPI 13. Chronic hypoxic respiratory failure ? Patient is on baseline home oxygen recently prescribed following his hospitalization 14. DVT prophylaxis ? Patient is on apixaban Time spent in the patient's overall evaluation,decision-making process, review of diagnostic data, adjustment of management, discussion with other providers, nursing nursing and ancillary staff involved in patient's care documentation, 36 Minutes Charges/Coding Visit Charges Inpatient E&M: 48104 Subs Hosp L2
[2024-05-30] MEDS: Metoprolol Tartrate 50 MG Tablet PO ×2 (08:39→20:41)
[2024-05-30] MEDS: APIXABAN 2.5 MG TABLET (WCH) PO ×2 (08:39→20:41)
[2024-05-30] MEDS: Aspirin E.C. 81 MG Tablet PO (08:39)
[2024-05-30] MEDS: amLODIPine 5 MG Tablet PO (08:39)
[2024-05-30] MEDS: Furosemide 40 MG/4 ML Vial IV ×2 (08:39→20:41)
[2024-05-30] MEDS: Cholecalciferol (VIT D3) 25 MCG TABLET (1,000 UNITS) PO (08:40)
[2024-05-30] MEDS: Pantoprazole Sodium 20 MG Tablet PO ×2 (08:40→20:41)
[2024-05-30] MEDS: Amiodarone 200 MG Tablet PO (08:40)
--- NOTE | 2024-05-30 18:04 | PN.RENAL_ITS ---
Subjective Subjective Following for CHADWICK on CKD. Patient feels better overall. He still has some dyspnea on exertion. He denies dyspnea at rest. Patient still requiring 4 L nasal cannula oxygen. He uses 2 L nasal cannula oxygen at home. Objective Data Objective Data Vital Signs: Vital Signs Temp Pulse Resp BP Pulse Ox O2 Del Method O2 Flow Rate 97.8 F 57 L 16 135/60 H 95 Nasal Cannula 2 05/30/24 16:00 05/30/24 16:00 05/30/24 16:00 05/30/24 16:00 05/30/24 16:00 05/30/24 16:00 05/30/24 16:00 Oxygen Flow Rate (L/min) 2 Oxygen Delivery Method Nasal Cannula Weight: 62.9 kg Body Mass Index (BMI) 22.4 Intake & Output: Intake and Output for Last 24 Hours 05/28/24 05/29/24 05/30/24 23:59 23:59 23:59 Intake Total 700 / 950 1070 / 1320 250 / 250 Output Total 955 / 1455 1250 / 1550 1600 / 1600 Balance -255 / -505 -180 / -230 -1350 / -1350 Lab / Micro Data 05/30/24 05:12 05/30/24 05:12 Labs: Laboratory Results - last 24 hr 05/30/24 05:12: WBC 9.4, RBC 2.88 L, Hgb 8.9 L, Hct 27.2 L, MCV 94.4 H, MCH 30.9, MCHC 32.7, RDW Std Deviation 46.5 H, RDW Coeff of [place] 13.4, Plt Count 243, MPV 11.1, Immature Gran % (Auto) 0.400, Neut % (Auto) 78.2 H, Lymph % (Auto) 7.0 L, [place] % (Auto) 13.1 H, Eos % (Auto) 1.0, Baso % (Auto) 0.3, Absolute Neuts (auto) 7.4, Absolute Lymphs (auto) 0.66 L, Nucleated RBC % 0, Sodium 138, Potassium 3.9, Chloride 99, Carbon Dioxide 31.0, Anion Gap 7, BUN 68 H, C reatinine 2.64 H, Estim Creat Clear Calc 17.54, Est GFR (MDRD) Af Amer 30 L, Est GFR (MDRD) Non-Af 25 L, BUN/Creatinine Ratio 25.8 H, Glucose 117 H, Calcium 9.1, Phosphorus 4.0, Magnesium 2.1 Micro: Microbiology 05/28/24 08:45 Stool Stool Lactoferrin - Final 05/28/24 08:45 Stool Enteric Bacteriology - Final 05/28/24 08:45 Stool Clostridioides difficile (PCR) - Final Physical Exam Narrative General: Alert and oriented x3, NAD. Neck: Supple, no JVD. Trachea is midline. No thyromegaly or lymphadenopathy. Cardiovascular: Normal S1, S2. No rubs, murmurs, or gallops. Respiratory: Decreased breath sound at bases bilaterally (left greater than right). No wheezing, rhonchi, or rales. Abdomen: Normal bowel sounds, soft, nontender, no guarding or rebound, no organomegaly. Extremities: 1+ edema of the lower extremities 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/min: (3) CHF (congestive heart failure): QUALIFIERS: Heart failure chronicity: acute on chronic Heart failure type: combined systolic and diastolic Qualified Code(s): I50.43 - Acute on chronic combined systolic (congestive) and diastolic (congestive) heart failure (4) Left ventricular systolic dysfunction: (5) HTN (hypertension), benign: PLAN: Plan Impression/Plan: The patient is a 88-year-old male with past history of CKD stage G4, hypertension, CAD status post CABG, HFrEF (EF 35%), paroxysmal atrial fibrillation, PAD status post carotid endarterectomy, anemia, Bales's esophagus/esophageal stricture, and hyperlipidemia. The patient is admitted to the hospital on 05/27/2024 with decompensated heart failure. Nephrology is asked see the patient because of CHADWICK on CKD. Acute kidney injury on chronic kidney disease stage G4. Prior to recent hospital admission in April 2024, serum creatinine has been around 1.80 to 2.00 mg/dL. Since April 2024, we have seen downward trend of renal function. The patient presented to hospital with serum creatinine of 2.17 mg/dL on 05/27/2024 which has increased to 2.62 mg/dL on 05/29/2024. During the last admission to the hospital in April 2024, serum creatinines been as high as 2.65 mg/dL on 05/11/2024. Urinalysis from 05/27/[address] abdomen from 05/27/2024 was negative for hydronephrosis. CHADWICK is likely due to cardiorenal cause versus progression of underlying CKD. I would recommend continuing to diurese the patient with IV particularly since weight has not decreased significantly in the last 48 hours. Serum creatinine has stabilized despite diuresis today at 2.63 mg/dL. If CHADWICK is primarily due to cardiorenal syndrome, serum creatinine should stabilize or even improved. Will continue to monitor renal function, volume status, acid-base and electrolytes. Hypertension. BP is under controlled on current antihypertensives. Will continue to monitor BP. HFrEF. Patient is being diuresed. Will monitor renal function while he is being diuresed. Because of CHADWICK on CKD, the patient is not on RAAS gretta. GFR is high enough that SGLT2 inhibitor can be added. May want to also consider adding hydralazine/nitrate. I will defer to primary service and cardiology.
[2024-05-30] MEDS: Atorvastatin Calcium 20 MG Tablet PO (20:41)
[2024-05-31] VITALS (10 sets, daily range): BP systolic 130–149; BP diastolic 44–60; PULSE 53–64; RESP 16–18; TEMP 36.4–36.8; O2SAT 93–96; BMI 22.2
[2024-05-31] MEDS: Lactobacillis Acidophilus 1 CAP PO ×3 (05:48→21:05)
[2024-05-31 06:31] LABS: Absolute Lymphocyte Count 0.81 X10^3/uL (0.83-4.51); Absolute Neutrophil Count 5.9 X10^3/uL (2.0-7.7); Basophil# 0.03 X10^3/uL; Basophil% 0.4 % (0-1); Eosinophil# 0.26 X10^3/uL; Eosinophils% 3.2 % (0-5); Hematocrit 28.7 % (40-54); Hemoglobin 9.1 g/dL (13.0-16.5); Lymphocyte # 0.81 X10^3/ul (0.83-4.51); Mean Corp Hgb Conc 31.7 g/dL (32-36); Mean Corpuscular Hgb 30.2 pg (27.0-32.0); Mean Corpuscular Volume 95.3 fL (80-94); Mean Platelet Vol. 11.2 fl (6.2-12.0); Monocyte% 13.5 % (0-10); NRBC Flagged by Analyzer 0 % (0-5); Neutrophil % 72.7 % (47-70); Platelet Count 218 K/mm3 (150-450); RBC Distribution Width CV 13.1 % (11.6-14.6); RBC Distribution Width SD 45.6 fl (35.1-43.9); Red Blood Count 3.01 M/mm3 (4.6-6.2); White Blood Count 8.1 K/mm3 (4.4-11.0)
[2024-05-31 07:01] LABS: Anion Gap 8 (5-15); BUN 74 mg/dL (7-18); BUN/Creat Ratio 30.8 RATIO (10-20); Calcium,Total 8.8 mg/dL (8.5-10.1); Chloride 101 mmol/L (98-107); EST Glomerular Filtration Rate 27 mL/min (>60); Est Glom Filt Rate - Afr Amer 33 mL/min (>60); Glucose 107 mg/dL (74-106); Sodium Level 140 mmol/L (136-145)
[2024-05-31] MEDS: Albuterol 2.5 MG/3 ML VIAL.NEB. INHALATION ×2 (07:07→19:08)
--- NOTE | 2024-05-31 08:47 | PN.HOSP_ITS ---
Reason for Visit Reason for Visit: Diagnoses Elevated white blood cell count, unspecified (05/27/24) Hyperlipidemia, unspecified (05/27/24) Essential (primary) hypertension (05/27/24) Atherosclerotic heart disease of [place] coronary artery without angina pectoris (05/27/24) Left bundle-branch block, unspecified (05/27/24) Acute on chronic combined systolic (congestive) and diastolic (congestive) heart failure (05/27/24) Heart failure, unspecified (05/27/24) Heart disease, unspecified (05/27/24) Occlusion and stenosis of left carotid artery (05/27/24) Chronic kidney disease, stage 3b (05/27/24) Chronic kidney disease, stage 4 (severe) (05/27/24) Diarrhea, unspecified (05/27/24) Presence of aortocoronary bypass graft (05/27/24) Subjective Subjective Patient seen, remains comfortable at rest. Rate did not change. His oxygen requirement did go up. Case was discussed with Dr. Soliz. Adjusted patient Lasix dose Objective Data Objective Data Vital Signs: Vital Signs Temp Pulse Resp BP Pulse Ox O2 Del Method O2 Flow Rate 97.9 F 53 L 17 131/46 H 93 Nasal Cannula 5 05/31/24 07:59 05/31/24 07:59 05/31/24 07:59 05/31/24 07:59 05/31/24 07:59 05/31/24 08:01 05/31/24 08:01 Oxygen Flow Rate (L/min) 5 Oxygen Delivery Method Nasal Cannula Weight: 62.6 kg Body Mass Index (BMI) 22.2 Intake & Output: Intake and Output for Last 24 Hours 05/29/24 05/30/24 05/31/24 23:59 23:59 23:59 Intake Total 1070 / 1320 325 / 325 100 / 100 Output Total 1250 / 1550 1950 / 1950 500 / 500 Balance -180 / -230 -1625 / -1625 -400 / -400 Lab / Micro Data 05/31/24 05:25 05/31/24 05:25 Labs: Laboratory Results - last 24 hr 05/31/24 05:25: WBC 8.1, RBC 3.01 L, Hgb 9.1 L, Hct 28.7 L, MCV 95.3 H, MCH 30.2, MCHC 31.7 L, RDW Std Deviation 45.6 H, RDW Coeff of [place] 13.1, Plt Count 218, MPV 11.2, Immature Gran % (Auto) 0.200, Neut % (Auto) 72.7 H, Lymph % (Auto) 10.0 L, [place] % (Auto) 13.5 H, Eos % (Auto) 3.2, Baso % (Auto) 0.4, Absolute Neuts (auto) 5.9, Absolute Lymphs (auto) 0.81 L, Nucleated RBC % 0, Sodium 140, Potassium 4.0, Chloride 101, Carbon Dioxide 31.0, Anion Gap 8, BUN 74 H, Creatinine 2.40 H, Estim Creat Clear Calc 19.20, Est GFR (MDRD) Af Amer 33 L, Est GFR (MDRD) Non-Af 27 L, BUN/Creatinine Ratio 30.8 H, Glucose 107 H, Calcium 8.8 Micro: Microbiology 05/28/24 08:45 Stool Stool Lactoferrin - Final 05/28/24 08:45 Stool Enteric Bacteriology - Final 05/28/24 08:45 Stool Clostridioides difficile (PCR) - Final Physical Exam Narrative GENERAL: cooperative HEENT: Atraumatic; normocephalic EYES; Anicteric, Normal Conjunctiva NECK; supple, normal thyroid, RESPIRATORY: Diminished to auscultation with bibasilar crackles CARDIOVASCULAR: Regular S1 S2, GI: soft, normoactive bowel sounds, : No Renal angle tenderness; EXTREMITIES: No edema, no clubbing, MUSCULOSKELETAL: no muscle wasting NEURO: Awake; no lateralizing signs. SKIN: No Rash PSYCH; Flat affect Assessment & Plan Assessment/Plan (1) CHF (congestive heart failure): QUALIFIERS: Heart failure chronicity: acute on chronic Heart failure type: combined systolic and diastolic Qualified Code(s): I50.43 - Acute on chronic combined systolic (congestive) and diastolic (congestive) heart failure (2) CKD (chronic kidney disease) stage 4, GFR 15-29 ml/min: PLAN: Plan Patient is an 88-year-old male admitted with progressive generalized weakness with shortness of breath bipedal edema and abdominal bloating and assessment of acute congestive heart failure made admitted to a monitored bed where patient has since been managed 1. 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 2D echo from 05/08/2024 demonstrated LVEF of 35% and PASP of 50 mmHg. Patient has been admitted to a monitored bed manage strict input and output, daily weight, low-sodium diet, fluid restriction as well as IV diuretic therapy ? 05/30/2024; patient continues to improve clinically currently on 4 L of oxygen -05/31/2024; Patient seen, remains comfortable at rest. Rate did not change. His oxygen requirement did go up. Case was discussed with Dr. Soliz. Adjusted patient Lasix dose 2.Chronic kidney disease stage IV ? Baseline creatinine 2.17. Slight worsening of patient kidney function following diuresis. Did discuss with Dr. Harrell with nephrology plan is to continue with current diuretic therapy ? 05/30/2024 kidney function remains fairly stable 3. Pulmonary hypertension ? PASP from recent 2D echo demonstrated pressures of 50 mmHg complicating care 4. Paroxysmal A-fib ? Rate controlled on amiodarone patient is on systemic anticoagulation with apixaban 5. Coronary artery disease ? Status post previous CABG patient is on guideline directed medical therapy 6. Left carotid artery stenosis ? Status post CEA #7. Hypertension ? Blood pressure controlled, home medications continued with dose adjustment as needed 8. Dyslipidemia ?Patient is on statin therapy, continued at home dose 9. Previous history of traumatic SAH ? Remains stable 10. Previous history of left posterior parietal CVA ? Patient is on antiplatelet therapy as well as statin therapy 11. Anemia ? Secondary to chronic disorder monitoring H&H and transfuse if patient becomes symptomatic or hemoglobin falls below 7 12. GERD ? With Bales's esophagus and previous esophageal stricture ? Status post esophageal stenting patient is on PPI 13. Chronic hypoxic respiratory failure ? Patient is on baseline home oxygen recently prescribed following his hospitalization 14. DVT prophylaxis ? Patient is on apixaban Time spent in the patient's overall evaluation,decision-making process, review of diagnostic data, adjustment of management, discussion with other providers, nursing nursing and ancillary staff involved in patient's care documentation, 36 Minutes Charges/Coding Visit Charges Inpatient E&M: 67766 Subs Hosp L2
[2024-05-31] MEDS: Amiodarone 200 MG Tablet PO (09:27)
[2024-05-31] MEDS: Aspirin E.C. 81 MG Tablet PO (09:27)
[2024-05-31] MEDS: APIXABAN 2.5 MG TABLET (WCH) PO ×2 (09:27→21:06)
[2024-05-31] MEDS: Pantoprazole Sodium 20 MG Tablet PO ×2 (09:29→21:06)
[2024-05-31] MEDS: amLODIPine 5 MG Tablet PO (09:29)
[2024-05-31] MEDS: Cholecalciferol (VIT D3) 25 MCG TABLET (1,000 UNITS) PO (09:29)
[2024-05-31] MEDS: Furosemide 100 MG/10 ML Vial 80 MG IV ×2 (10:10→18:27)
[2024-05-31] MEDS: 0.9% Saline Lock 10 ML Syringe IV (10:11)
--- NOTE | 2024-05-31 20:11 | PN.RENAL_ITS ---
Subjective Subjective no new events Objective Data Objective Data Vital Signs: Vital Signs Temp Pulse Resp BP Pulse Ox O2 Del Method O2 Flow Rate 98.3 F 55 L 16 144/44 H 96 Nasal Cannula 5 05/31/24 15:53 05/31/24 15:53 05/31/24 15:53 05/31/24 15:53 05/31/24 15:53 05/31/24 15:53 05/31/24 15:53 Oxygen Flow Rate (L/min) 5 Oxygen Delivery Method Nasal Cannula Weight: 62.6 kg Body Mass Index (BMI) 22.2 Intake & Output: Intake and Output for Last 24 Hours 05/29/24 05/30/24 05/31/24 23:59 23:59 23:59 Intake Total 1070 / 1320 325 / 325 100 / 100 Output Total 1250 / 1550 1950 / 1950 1750 / 1750 Balance -180 / -230 -1625 / -1625 -1650 / -1650 Lab / Micro Data 05/31/24 05:25 05/31/24 05:25 Labs: Laboratory Results - last 24 hr 05/31/24 05:25: WBC 8.1, RBC 3.01 L, Hgb 9.1 L, Hct 28.7 L, MCV 95.3 H, MCH 30.2, MCHC 31.7 L, RDW Std Deviation 45.6 H, RDW Coeff of [place] 13.1, Plt Count 218, MPV 11.2, Immature Gran % (Auto) 0.200, Neut % (Auto) 72.7 H, Lymph % (Auto) 10.0 L, [place] % (Auto) 13.5 H, Eos % (Auto) 3.2, Baso % (Auto) 0.4, Absolute Neuts (auto) 5.9, Absolute Lymphs (auto) 0.81 L, Nucleated RBC % 0, Sodium 140, Potassium 4.0, Chloride 101, Carbon Dioxide 31.0, Anion Gap 8, BUN 74 H, Creatinine 2.40 H, Estim Creat Clear Calc 19.20, Est GFR (MDRD) Af Amer 33 L, Est GFR (MDRD) Non-Af 27 L, BUN/Creatinine Ratio 30.8 H, Glucose 107 H, Calcium 8.8 Micro: Microbiology 05/28/24 08:45 Stool Stool Lactoferrin - Final 05/28/24 08:45 Stool Enteric Bacteriology - Final 05/28/24 08:45 Stool Clostridioides difficile (PCR) - Final Physical Exam Narrative General: Alert and oriented x3, NAD. Neck: Supple, no JVD. Trachea is midline. No thyromegaly or lymphadenopathy. Cardiovascular: Normal S1, S2. No rubs, murmurs, or gallops. Respiratory: Decreased breath sound at bases bilaterally (left greater than right). No wheezing, rhonchi, or rales. Abdomen: Normal bowel sounds, soft, nontender, no guarding or rebound, no organomegaly. Extremities: 1+ edema of the lower extremities 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/min: (3) CHF (congestive heart failure): QUALIFIERS: Heart failure type: combined systolic and diastolic H eart failure chronicity: acute on chronic Qualified Code(s): I50.43 - Acute on chronic combined systolic (congestive) and diastolic (congestive) heart failure (4) Left ventricular systolic dysfunction: (5) HTN (hypertension), benign: PLAN: Plan Impression/Plan: The patient is a 88-year-old male with past history of CKD stage G4, hypertension, CAD status post CABG, HFrEF (EF 35%), paroxysmal atrial fibrillation, PAD status post carotid endarterectomy, anemia, Bales's esophagus/esophageal stricture, and hyperlipidemia. The patient is admitted to the hospital on 05/27/2024 with decompensated heart failure. Nephrology is asked see the patient because of CHADWICK on CKD. Acute kidney injury on chronic kidney disease stage G4. Prior to recent hospital admission in April 2024, serum creatinine has been around 1.80 to 2.00 mg/dL. Since April 2024, we have seen downward trend of renal function. The patient presented to hospital with serum creatinine of 2.17 mg/dL on 05/27/2024 which has increased to 2.62 mg/dL on 05/29/2024. During the last admission to the hospital in April 2024, serum creatinines been as high as 2.65 mg/dL on 05/11/2024. Urinalysis from 05/27/[address] abdomen from 05/27/2024 was negative for hydronephrosis. CHADWICK is likely due to cardiorenal cause versus progression of underlying CKD. Serum creatinine has stabilized despite diuresis today at 2.63 mg/dL. Hypertension. BP is under controlled on current antihypertensives. Will continue to monitor BP. HFrEF. Patient is being diuresed. continue lasix 80 mg BID IV dw family at bedside
[2024-05-31] MEDS: Atorvastatin Calcium 20 MG Tablet PO (21:05)
[2024-05-31] MEDS: Metoprolol Tartrate 50 MG Tablet PO (21:06)
[2024-06-01 03:00] VITALS: BP 147/48; PULSE 56; RESP 18; TEMP 36.8; O2SAT 96
[2024-06-01] MEDS: Lactobacillis Acidophilus 1 CAP PO (05:39)
[2024-06-01 07:14] VITALS: PULSE 61; RESP 16; O2SAT 94
[2024-06-01 07:14] LABS: Absolute Lymphocyte Count 0.81 X10^3/uL (0.83-4.51); Absolute Neutrophil Count 5.4 X10^3/uL (2.0-7.7); Basophil# 0.04 X10^3/uL; Basophil% 0.5 % (0-1); Eosinophil# 0.26 X10^3/uL; Eosinophils% 3.4 % (0-5); Hematocrit 30.2 % (40-54); Hemoglobin 9.5 g/dL (13.0-16.5); Lymphocyte # 0.81 X10^3/ul (0.83-4.51); Lymphocyte % 10.7 % (19-41); Mean Corp Hgb Conc 31.5 g/dL (32-36); Mean Corpuscular Hgb 29.9 pg (27.0-32.0); Mean Platelet Vol. 10.5 fl (6.2-12.0); Monocyte# 1.03 X10^3/uL; Monocyte% 13.6 % (0-10); NRBC Flagged by Analyzer 0 % (0-5); Neutrophil # 5.41 X10^3/uL (2.7-7.7); Neutrophil % 71.5 % (47-70); Platelet Count 249 K/mm3 (150-450); RBC Distribution Width CV 13.2 % (11.6-14.6); RBC Distribution Width SD 46.2 fl (35.1-43.9); Red Blood Count 3.18 M/mm3 (4.6-6.2); White Blood Count 7.6 K/mm3 (4.4-11.0)
[2024-06-01] MEDS: Albuterol 2.5 MG/3 ML VIAL.NEB. INHALATION (07:14)
[2024-06-01 07:55] LABS: Anion Gap 7 (5-15); BUN 69 mg/dL (7-18); BUN/Creat Ratio 30.5 RATIO (10-20); Calcium,Total 9.3 mg/dL (8.5-10.1); Chloride 100 mmol/L (98-107); Creatinine, Serum 2.26 mg/dL (0.70-1.30); EST Glomerular Filtration Rate 29 mL/min (>60); Est Glom Filt Rate - Afr Amer 35 mL/min (>60); Estimated Creatinine Clearance 20.39 ml/min; Glucose 107 mg/dL (74-106); Potassium 3.7 mmol/L (3.5-5.1); Sodium Level 141 mmol/L (136-145)
[2024-06-01 08:21] VITALS: BMI 20.8
[2024-06-01] MEDS: APIXABAN 2.5 MG TABLET (WCH) PO (08:50)
[2024-06-01] MEDS: Pantoprazole Sodium 20 MG Tablet PO (08:50)
[2024-06-01] MEDS: Amiodarone 200 MG Tablet PO (08:50)
[2024-06-01] MEDS: amLODIPine 5 MG Tablet PO (08:50)
[2024-06-01 08:51] VITALS: BP 147/76; PULSE 60
[2024-06-01] MEDS: Aspirin E.C. 81 MG Tablet PO (08:51)
[2024-06-01] MEDS: Metoprolol Tartrate 50 MG Tablet PO (08:51)
[2024-06-01] MEDS: Cholecalciferol (VIT D3) 25 MCG TABLET (1,000 UNITS) PO (08:51)
[2024-06-01 09:00] VITALS: BP 147/76; PULSE 58; RESP 16; TEMP 36.5; O2SAT 93
--- NOTE | 2024-06-01 09:20 | RAD_ITS ---
INDICATION: SOB EXAMINATION/TECHNIQUE: X-RAY - XR Chest 1 View COMPARISON: FINDINGS: LINES/DEVICES: None. LUNGS: Left basilar infiltrate and pleural effusion. No pneumothorax. MEDIASTINUM AND CARDIOVASCULAR STRUCTURES: Cardiac silhouette not enlarged. Central airways and mediastinal contour are unremarkable. BONES AND SOFT TISSUES: Unremarkable. RAD/Chest 1 View (Portable) IMPRESSION: Left basilar infiltrate and pleural effusion. Electronically Signed: Jorgito Bob DO at 9:38 EST ,
--- NOTE | 2024-06-01 09:36 | PCM.PN.HOSP ---
Reason for Visit Reason for Visit: Diagnoses Elevated white blood cell count, unspecified (05/27/24) Hyperlipidemia, unspecified (05/27/24) Essential (primary) hypertension (05/27/24) Atherosclerotic heart disease of [place] coronary artery without angina pectoris (05/27/24) Left bundle-branch block, unspecified (05/27/24) Acute on chronic combined systolic (congestive) and diastolic (congestive) heart failure (05/27/24) Heart failure, unspecified (05/27/24) Heart disease, unspecified (05/27/24) Occlusion and stenosis of left carotid artery (05/27/24) Chronic kidney disease, stage 3b (05/27/24) Chronic kidney disease, stage 4 (severe) (05/27/24) Diarrhea, unspecified (05/27/24) Presence of aortocoronary bypass graft (05/27/24) Subjective Subjective Patient seen clinical condition markedly improved. Plan is to have repeat home oxygen assessment prior to patient being discharged Objective Data Objective Data Vital Signs: Vital Signs Temp Pulse Resp BP Pulse Ox O2 Del Method O2 Flow Rate 97.7 F L 58 L 16 147/76 H 93 Nasal Cannula 2 06/01/24 09:00 06/01/24 09:00 06/01/24 09:00 06/01/24 09:00 06/01/24 09:00 06/01/24 09:08 06/01/24 09:08 Oxygen Flow Rate (L/min) 2 Oxygen Delivery Method Nasal Cannula Weight: 58.5 kg Body Mass Index (BMI) 20.8 Intake & Output: Intake and Output for Last 24 Hours 05/30/24 05/31/24 06/01/24 23:59 23:59 23:59 Intake Total 325 / 325 250 / 250 75 / 75 Output Total 1950 / 1950 2049 200 / 200 Balance -1625 / -1625 -1800 / -1800 -125 / -125 Lab / Micro Data 06/01/24 06:09 06/01/24 06:09 Labs: Laboratory Results - last 24 hr 06/01/24 06:09: WBC 7.6, RBC 3.18 L, Hgb 9.5 L, Hct 30.2 L, MCV 95.0 H, MCH 29.9, MCHC 31.5 L, RDW Std Deviation 46.2 H, RDW Coeff of [place] 13.2, Plt Count 249, MPV 10.5, Immature Gran % (Auto) 0.300, Neut % (Auto) 71.5 H, Lymph % (Auto) 10.7 L, [place] % (Auto) 13.6 H, Eos % (Auto) 3.4, Baso % (Auto) 0.5, Absolute Neuts (auto) 5.4, Absolute Lymphs (auto) 0.81 L, Nucleated RBC % 0, Sodium 141, Potassium 3.7, Chloride 100, Carbon Dioxide 34.0 H, Anion Gap 7, BUN 69 H, Creatinine 2.26 H, Estim Creat Clear Calc 20.39, Est GFR (MDRD) Af Amer 35 L, Est GFR (MDRD) Non-Af 29 L, BUN/Creatinine Ratio 30.5 H, Glucose 107 H, Calcium 9.3 Micro: Microbiology 05/28/24 08:55 Stool Ova and Parasites - Final 05/28/24 08:45 Stool Stool Lactoferrin - Final 05/28/24 08:45 Stool Enteric Bacteriology - Final 05/28/24 08:45 Stool Clostridioides difficile (PCR) - Final Physical Exam Narrative GENERAL: cooperative HEENT: Atraumatic; normocephalic EYES; Anicteric, Normal Conjunctiva NECK; supple, normal thyroid, RESPIRATORY: Diminished to auscultation with bibasilar crackles CARDIOVASCULAR: Regular S1 S2, GI: soft, normoactive bowel sounds, : No Renal angle tenderness; EXTREMITIES: No edema, no clubbing, MUSCULOSKELETAL: no muscle wasting NEURO: Awake; no lateralizing signs. SKIN: No Rash PSYCH; Flat affect Assessment & Plan Assessment/Plan (1) CHF (congestive heart failure): QUALIFIERS: Heart failure chronicity: acute on chronic Heart failure type: combined systolic and diastolic Qualified Code(s): I50.43 - Acute on chronic combined systolic (congestive) and diastolic (congestive) heart failure (2) CKD (chronic kidney disease) stage 4, GFR 15-29 ml/min: PLAN: Plan Patient is an 88-year-old male admitted with progressive generalized weakness with shortness of breath bipedal edema and abdominal bloating and assessment of acute congestive heart failure made admitted to a monitored bed where patient has since been managed 1. 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 2D echo from 05/08/2024 demonstrated LVEF of 35% and PASP of 50 mmHg. Patient has been admitted to a monitored bed manage strict input and output, daily weight, low-sodium diet, fluid restriction as well as IV diuretic therapy ? 05/30/2024; patient continues to improve clinically currently on 4 L of oxygen -05/31/2024; Patient seen, remains comfortable at rest. Rate did not change. His oxygen requirement did go up. Case was discussed with Dr. Soliz. Adjusted patient Lasix dose 2.Chronic kidney disease stage IV ? Baseline creatinine 2.17. Slight worsening of patient kidney function following diuresis. Did discuss with Dr. Harrell with nephrology plan is to continue with current diuretic therapy ? 05/30/2024 kidney function remains fairly stable 3. Pulmonary hypertension ? PASP from recent 2D echo demonstrated pressures of 50 mmHg complicating care 4. Paroxysmal A-fib ? Rate controlled on amiodarone patient is on systemic anticoagulation with apixaban 5. Coronary artery disease ? Status post previous CABG patient is on guideline directed medical therapy 6. Left carotid artery stenosis ? Status post CEA #7. Hypertension ? Blood pressure controlled, home medications continued with dose adjustment as needed 8. Dyslipidemia ?Patient is on statin therapy, continued at home dose 9. Previous history of traumatic SAH ? Remains stable 10. Previous history of left posterior parietal CVA ? Patient is on antiplatelet therapy as well as statin therapy 11. Anemia ? Secondary to chronic disorder monitoring H&H and transfuse if patient becomes symptomatic or hemoglobin falls below 7 12. GERD ? With Bales's esophagus and previous esophageal stricture ? Status post esophageal stenting patient is on PPI 13. Chronic hypoxic respiratory failure ? Patient is on baseline home oxygen recently prescribed following his hospitalization 14. DVT prophylaxis ? Patient is on apixaban Time spent in the patient's overall evaluation,decision-making process, review of diagnostic data, adjustment of management, discussion with other providers, nursing nursing and ancillary staff involved in patient's care documentation, 36 Minutes Charges/Coding Visit Charges Inpatient E&M: 98772 Subs Hosp L2
[2024-06-01] MEDS: Furosemide 100 MG/10 ML Vial 80 MG IV (10:20)
[2024-06-01] MEDS: 0.9% Saline Lock 10 ML Syringe IV (10:21)
[2024-06-01 11:00] VITALS: O2SAT 77; O2SAT 90; O2SAT 93
--- NOTE | 2024-06-01 11:58 | PCM.DC.SUM ---
Providers Date of Admission: 05/27/24 Date of Discharge: 06/01/24 Primary Care Physician: Dr. Gladis Castro, DO Consultations 05/27/24 20:58 Consult: Nephrology Routine Consulting Provider: Lamar Sanchez Reason for Consult: Suspected evolving Cardiorenal Syndrome. EMERGENT Consult: No MD Notified: Yes Date Notified: 05/28/24 Time Notified: 07:18 Method of Notification: Answering Service Reason For Visit: AE CHF AND DIARRHEA Diagnosis Discharge Diagnosis (1) CHF (congestive heart failure): Status: Acute Code(s): I50.9 - Heart failure, unspecified Qualifiers: Heart failure type: combined systolic and diastolic Heart failure chronicity: acute on chronic Qualified Code(s): I50.43 - Acute on chronic combined systolic (congestive) and diastolic (congestive) heart failure (2) CKD (chronic kidney disease) stage 4, GFR 15-29 ml/min: Status: Chronic Code(s): N18.4 - Chronic kidney disease, stage 4 (severe) Plan Patient is an 88-year-old male admitted with progressive generalized weakness with shortness of breath bipedal edema and abdominal bloating and assessment of acute congestive heart failure made admitted to a monitored bed where patient has since been managed 1. 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 2D echo from 05/08/2024 demonstrated LVEF of 35% and PASP of 50 mmHg. Patient has been admitted to a monitored bed manage strict input and output, daily weight, low-sodium diet, fluid restriction as well as IV diuretic therapy ? 05/30/2024; patient continues to improve clinically currently on 4 L of oxygen -05/31/2024; Patient seen, remains comfortable at rest. Rate did not change. His oxygen requirement did go up. Case was discussed with Dr. Soliz. Adjusted patient Lasix dose ? I have reviewed the oxygen testing, and this patient qualifies for the home equipment and portability. The patient is mobile in the home and the community. 2.Chronic kidney disease stage IV ? Baseline creatinine 2.17. Slight worsening of patient kidney function following diuresis. Did discuss with Dr. Harrell with nephrology plan is to continue with current diuretic therapy ? 05/30/2024 kidney function remains fairly stable 3. Pulmonary hypertension ? PASP from recent 2D echo demonstrated pressures of 50 mmHg complicating care 4. Paroxysmal A-fib ? Rate controlled on amiodarone patient is on systemic anticoagulation with apixaban 5. Coronary artery disease ? Status post previous CABG patient is on guideline directed medical therapy 6. Left carotid artery stenosis ? Status post CEA #7. Hypertension ? Blood pressure controlled, home medications continued with dose adjustment as needed 8. Dyslipidemia ?Patient is on statin therapy, continued at home dose 9. Previous history of traumatic SAH ? Remains stable 10. Previous history of left posterior parietal CVA ? Patient is on antiplatelet therapy as well as statin therapy 11. Anemia ? Secondary to chronic disorder monitoring H&H and transfuse if patient becomes symptomatic or hemoglobin falls below 7 12. GERD ? With Bales's esophagus and previous esophageal stricture ? Status post esophageal stenting patient is on PPI 13. Chronic hypoxic respiratory failure ? Patient is on baseline home oxygen recently prescribed following his hospitalization 14. DVT prophylaxis ? Patient is on apixaban Time spent in the patient's overall evaluation,decision-making process, review of diagnostic data, adjustment of management, discussion with other providers, nursing nursing and ancillary staff involved in patient's care documentation, 36 Minutes Medications at Discharge Home Medications aspirin 81 mg tablet,delayed release (Adult Low Dose Aspirin) 81 mg PO QDAY SUPPLEMENT 11/04/17 cholecalciferol (vitamin D3) 25 mcg (1,000 unit) capsule 1,000 unit PO QDAY SUPPLEMENT 03/11/23 omeprazole 20 mg capsule,delayed release 20 mg PO BID GERD #180 caps 02/11/24 atorvastatin 20 mg tablet 20 mg PO QPM H;D 03/27/24 amiodarone 200 mg tablet 200 mg PO DAILY #30 tabs 05/12/24 apixaban 5 mg tablet (Eliquis) 2.5 mg (1/2 x 5 mg) PO BID #30 tabs 05/12/24 metoprolol tartrate 50 mg tablet 50 mg PO BID #60 tabs 05/12/24 amlodipine 10 mg tablet 5 mg PO DAILY BP 05/27/24 furosemide 80 mg tablet (Lasix) 80 mg PO BID #120 tabs 06/01/24 Physical Exam Narrative GENERAL: cooperative HEENT: Atraumatic; normocephalic EYES; Anicteric, Normal Conjunctiva NECK; supple, normal thyroid, RESPIRATORY: Diminished to auscultation with bibasilar crackles CARDIOVASCULAR: Regular S1 S2, GI: soft, normoactive bowel sounds, : No Renal angle tenderness; EXTREMITIES: No edema, no clubbing, MUSCULOSKELETAL: no muscle wasting NEURO: Awake; no lateralizing signs. SKIN: No Rash PSYCH; Flat affect Weight / BMI Weight Weight: 58.5 kg Body Mass Index (BMI) 20.8 ABG / Lab / Microbiology Data 06/01/24 06:09 06/01/24 06:09 Laboratory: Laboratory Results - last 24 hr 06/01/24 06:09: WBC 7.6, RBC 3.18 L, Hgb 9.5 L, Hct 30.2 L, MCV 95.0 H, MCH 29.9, MCHC 31.5 L, RDW Std Deviation 46.2 H, RDW Coeff of [place] 13.2, Plt Count 249, MPV 10.5, Immature Gran % (Auto) 0.300, Neut % (Auto) 71.5 H, Lymph % (Auto) 10.7 L, [place] % (Auto) 13.6 H, Eos % (Auto) 3.4, Baso % (Auto) 0.5, Absolute Neuts (auto) 5.4, Absolute Lymphs (auto) 0.81 L, Nucleated RBC % 0, Sodium 141, Potassium 3.7, Chloride 100, Carbon Dioxide 34.0 H, Anion Gap 7, BUN 69 H, Creatinine 2.26 H, Estim Creat Clear Calc 20.39, Est GFR (MDRD) Af Amer 35 L, Est GFR (MDRD) Non-Af 29 L, BUN/Creatinine Ratio 30.5 H, Glucose 107 H, Calcium 9.3 Microbiology: Microbiology 05/28/24 08:55 Stool Ova and Parasites - Final 05/28/24 08:45 Stool Stool Lactoferrin - Final 05/28/24 08:45 Stool Enteric Bacteriology - Final 05/28/24 08:45 Stool Clostridioides difficile (PCR) - Final Radiography Diagnostic Testing: Radiology Impression Chest X-Ray 06/01/24 09:20 IMPRESSION: Left basilar infiltrate and pleural effusion. Electronically Signed: Jorgito Bob DO at 9:38 EST , D/C Instructions Discharge Diet: 8 Cup Fluid Restriction, 2000 mg Sodium Diet and Renal Diet Discharge Activity: Return to Normal Activity Call your doctor if you observe: Fever of 101 or Higher, Shortness of breath, Fainting spells and Chest pain Meaningful Use Info Meaningful Use Meaningful Use Diagnoses (Choose all that apply): CHF CHF LORENZO/ARB ordered at discharge?: No Reason LORENZO/ARB not ordered?: Worsening renal function Documented LVEF (%): 30 Ischemic Stroke Statin Dosing Therapy Reference: STATIN DOSE THERAPY REFERENCE: * Patients > 75 years receive moderate or high dose statin therapy. * Patients 75 years or YOUNGER should receive HIGH intensity statin dose unless contraindicated. You will be required to document reason for non-treatment if statin daily dose does not meet guidelines. HIGH DOSE STATIN THERAPY DAILY Atorvastatin > than or = to 40 mg Rosuvastatin > than or = to 20 mg Amlodipine + Atorvastatin > than or = to 2.5/40 mg Ezetimibe + Simvastatin 10/80 mg Simvastatin 80mg Discharge Plan Admission Admit Date/Time: 05/27/24 20:12 Attending Provider: Kalpesh Farris Primary Care Provider: Gladis Castro Consulting Providers: Kalpesh Suggs; Lamar Sanchez; Len Harris Instructions Patient Instructions: Heart Failure Flare Up Signs, Heart Failure: Tracking Your Weight, Coping with Heart Failure, Heart Failure Make Changes Diet, Heart Failure Dc Discharge Orders/Prescriptions Prescriptions: New furosemide [Lasix] 80 mg tablet 80 mg PO BID Qty: 120 0RF Continued cholecalciferol (vitamin D3) 25 mcg (1,000 unit) capsule 1,000 unit PO QDAY aspirin [Adult Low Dose Aspirin] 81 mg tablet,delayed release (DR/EC) 81 mg PO QDAY atorvastatin 20 mg tablet 20 mg PO QPM omeprazole 20 mg capsule,delayed release(DR/EC) 20 mg PO BID Qty: 180 1RF amiodarone 200 mg Tablet 200 mg PO DAILY Qty: 30 1RF Eliquis 5 mg Tablet 2.5 mg PO BID Qty: 30 0RF metoprolol tartrate 50 mg Tablet 50 mg PO BID Qty: 60 0RF amlodipine 10 mg tablet 5 mg PO DAILY Patient Comments: 1/2 pill per PCP starting 05/25/2024 Discontinued furosemide [Lasix] 40 mg tablet 40 mg PO DAILY Qty: 30 0RF Rx Instructions: Do not start 05/19/2024 Referrals / Follow Up: Gladis Castro DO [Primary Care Provider] - Within 1 Week Lamar Sanchez MD [Med Staff - Consulting] - Within 1 Week Disposition Disposition (needs filled in before D/C Order can be placed): Home, Self Care Charges/Coding Visit Charges Inpatient E&M: 15567 Disch Hosp >30min
--- NOTE | 2024-06-01 13:35 | PHA.DC.MR.R ---
Pharmacy [place] Med Reconciliation Pharmacy Service has performed discharge medication reconciliation for this patient. The patient's discharge medication list was reviewed for discrepancies and discrepancies were resolved. Medications at Discharge Home Medications aspirin 81 mg tablet,delayed release (Adult Low Dose Aspirin) 81 mg PO QDAY SUPPLEMENT 11/04/17 cholecalciferol (vitamin D3) 25 mcg (1,000 unit) capsule 1,000 unit PO QDAY SUPPLEMENT 03/11/23 omeprazole 20 mg capsule,delayed release 20 mg PO BID GERD #180 caps 02/11/24 atorvastatin 20 mg tablet 20 mg PO QPM H;D 03/27/24 amiodarone 200 mg tablet 200 mg PO DAILY #30 tabs 05/12/24 apixaban 5 mg tablet (Eliquis) 2.5 mg (1/2 x 5 mg) PO BID #30 tabs 05/12/24 metoprolol tartrate 50 mg tablet 50 mg PO BID #60 tabs 05/12/24 amlodipine 10 mg tablet 5 mg PO DAILY BP 05/27/24 furosemide 80 mg tablet (Lasix) 80 mg PO BID #120 tabs 06/01/24
--- NOTE | 2024-06-01 14:15 | CASEMGMT ---
Patient has order for discharge. Patient qualifies for increase in home oxygen. [place] [facility] [place] [facility] DESTINEE CHAN in to discuss needs at discharge. RN DUSTIN updated patient and regarding increase in home oxygen orders. Patient and voiced understanding. Patient up independent in room. Patient denies needs or help at discharge. Patient and had no further questions or concerns. DESTINEE CHAN updated discharge plan
[2024-06-01 15:54] VITALS: BP 141/67; PULSE 53; RESP 18; TEMP 36.4; O2SAT 92
== END 2024-06-01 15:54 | disposition home or self-care (01) | DRG 291 ==
LOC: ED 19:23 → PCU 21:33
PROVIDERS: Nurse Practitioner; Admitting Provider Internal Medicine; Emergency Provider Emergency Medicine; PCP Internal Medicine; Referring Provider Internal Medicine; Visit Provider Internal Medicine
DX: I13.0 Hypertensive heart and chronic kidney disease with heart failure and stage 1 through stage 4 chronic kidney disease, or unspecified chronic kidney disease (principal); I50.23 Acute on chronic systolic (congestive) heart failure; N18.4 Chronic kidney disease, stage 4 (severe); J96.11 Chronic respiratory failure with hypoxia; K52.1 Toxic gastroenteritis and colitis; N17.9 Acute kidney failure, unspecified; D63.8 Anemia in other chronic diseases classified elsewhere; I27.20 Pulmonary hypertension, unspecified; J44.9 Chronic obstructive pulmonary disease, unspecified; I48.0 Paroxysmal atrial fibrillation; K59.00 Constipation, unspecified; E78.00 Pure hypercholesterolemia, unspecified; K44.9 Diaphragmatic hernia without obstruction or gangrene; I25.10 Atherosclerotic heart disease of native coronary artery without angina pectoris; T36.95XA Adverse effect of unspecified systemic antibiotic, initial encounter; T50.1X6A Underdosing of loop [high-ceiling] diuretics, initial encounter; Z79.01 Long term (current) use of anticoagulants; Z99.81 Dependence on supplemental oxygen; Z79.82 Long term (current) use of aspirin; Z79.899 Other long term (current) drug therapy; Z86.73 Personal history of transient ischemic attack (TIA), and cerebral infarction without residual deficits; Z87.891 Personal history of nicotine dependence; Z95.1 Presence of aortocoronary bypass graft
CPT/HCPCS: 36415; 71045; 74176; 80048; 80053; 80069; 81001; 83630; 83690; 83735; 83880; 84100; 84443; 84484; 85025; 87177; 87209; 87493; 87506; 94640; 94668; 97162; 97165; 99284; P9047; A4216; J1940

== ENCOUNTER → 2024-06-05 | Outpatient (CLI) | payer MEDICARE, SELFPAY ==
[2024-06-05 12:48] LABS: Albumin, Serum 3.6 g/dL (3.2-5.0); BUN 74 mg/dL (7-18); BUN/Creat Ratio 25.1 RATIO (10-20); Calcium,Total 9.5 mg/dL (8.5-10.1); Chloride 98 mmol/L (98-107); Creatinine, Serum 2.95 mg/dL (0.70-1.30); EST Glomerular Filtration Rate 22 mL/min (>60); Est Glom Filt Rate - Afr Amer 26 mL/min (>60); Glucose 113 mg/dL (74-106); Phosphorus 3.5 mg/dL (2.5-4.9); Potassium 4.6 mmol/L (3.5-5.1); Sodium Level 139 mmol/L (136-145)
== END | disposition home or self-care (01) ==
PROVIDERS: PCP Internal Medicine; Referring Provider Internal Medicine; Visit Provider Internal Medicine
DX: N18.5 Chronic kidney disease, stage 5 (principal); I50.9 Heart failure, unspecified
CPT/HCPCS: 80069; 83880

== ENCOUNTER → 2024-06-16 | Outpatient (CLI) | payer MEDICARE, SELFPAY ==
[2024-06-16 10:18] LABS: Anion Gap 9 (5-15); BUN 67 mg/dL (7-18); BUN/Creat Ratio 27.7 RATIO (10-20); Calcium,Total 9.2 mg/dL (8.5-10.1); Chloride 96 mmol/L (98-107); Creatinine, Serum 2.42 mg/dL (0.70-1.30); EST Glomerular Filtration Rate 27 mL/min (>60); Est Glom Filt Rate - Afr Amer 33 mL/min (>60); Glucose 117 mg/dL (74-106); Sodium Level 136 mmol/L (136-145)
== END | disposition home or self-care (01) ==
LOC: LAB 07:56
PROVIDERS: PCP Internal Medicine; Referring Provider Internal Medicine; Visit Provider Internal Medicine
DX: Z51.81 Encounter for therapeutic drug level monitoring (principal)
CPT/HCPCS: 36415; 80048

== ENCOUNTER 2024-06-28 00:24 | Emergency (ER) | payer MEDICARE, SELFPAY ==
[2024-06-28] VITALS (10 sets, daily range): BP systolic 137–161; BP diastolic 5–81; PULSE 61–107; RESP 14–18; TEMP 36.9–37; O2SAT 85–98; BMI 17.4
--- NOTE | 2024-06-28 00:50 | RAD_ITS ---
EXAM: XR CHEST, 2 VIEWS CLINICAL INDICATION: chf TECHNIQUE: Frontal and lateral views of the chest. COMPARISON: Previous chest radiographs of 06/05/2024 and 06/01/2024. FINDINGS: LUNGS AND PLEURAL SPACES: Stable chronic blunting of the costophrenic angles by small bilateral pleural effusions. Chronic interstitial fibrotic changes are noted bilaterally. No superimposed acute pulmonary infiltrates. No pneumothorax. HEART: Heart size remains mildly enlarged with normal pulmonary vasculature. Previous CABG. Mitral annular calcification again noted. MEDIASTINUM: Previous median sternotomy. No mediastinal widening. BONES/JOINTS: Stable minimal anterior wedging of the midthoracic vertebral bodies. SOFT TISSUES: Surgical clips and stent material again projected within the upper abdomen anteriorly. RAD/Chest PA and Lateral IMPRESSION: No significant change. Pleural effusions are again noted. No pneumonia or pulmonary edema. Electronically Signed: Neeraj Jara MD at 1:30 EST ,
[2024-06-28 01:35] LABS: Absolute Lymphocyte Count 0.62 X10^3/uL (0.83-4.51); Basophil# 0.04 X10^3/uL; Basophil% 0.5 % (0-1); Eosinophil# 0.15 X10^3/uL; Eosinophils% 1.7 % (0-5); Hematocrit 27.4 % (40-54); Hemoglobin 8.8 g/dL (13.0-16.5); Lymphocyte # 0.62 X10^3/ul (0.83-4.51); Lymphocyte % 7.1 % (19-41); Mean Corp Hgb Conc 32.1 g/dL (32-36); Mean Corpuscular Hgb 30.8 pg (27.0-32.0); Mean Corpuscular Volume 95.8 fL (80-94); Mean Platelet Vol. 9.9 fl (6.2-12.0); Monocyte# 0.89 X10^3/uL; Monocyte% 10.1 % (0-10); NRBC Flagged by Analyzer 0 % (0-5); Neutrophil # 7.03 X10^3/uL (2.7-7.7); Platelet Count 230 K/mm3 (150-450); RBC Distribution Width CV 13.7 % (11.6-14.6); RBC Distribution Width SD 47.5 fl (35.1-43.9); Red Blood Count 2.86 M/mm3 (4.6-6.2); White Blood Count 8.8 K/mm3 (4.4-11.0)
[2024-06-28 01:59] LABS: Anion Gap 5 (5-15); BUN 78 mg/dL (7-18); BUN/Creat Ratio 33.2 RATIO (10-20); Calcium,Total 9.5 mg/dL (8.5-10.1); Chloride 102 mmol/L (98-107); Creatinine, Serum 2.35 mg/dL (0.70-1.30); EST Glomerular Filtration Rate 28 mL/min (>60); Est Glom Filt Rate - Afr Amer 34 mL/min (>60); Estimated Creatinine Clearance 15.35 ml/min; Glucose 125 mg/dL (74-106); Magnesium 2.1 mg/dL (1.6-2.6); Potassium 4.4 mmol/L (3.5-5.1); Sodium Level 139 mmol/L (136-145)
[2024-06-28 02:07] LABS: BNP,B-Type NATRIURETIC PEPTIDE 692.4 pg/mL (0-100)
--- NOTE | 2024-06-28 03:09 | EDS_ITS ---
HPI History of Present Illness Chief Complaint: Dizziness Informant: patient, spouse/S.O. and EMS Narrative Narrative: Patient is 88-year-old male with past medical history of paroxysmal A-fib currently on Eliquis chronic kidney disease and congestive heart failure. Patient states that this evening he was sitting up watching TV when he felt he had to use the restroom and therefore stood up and walked to the bathroom. He states after doing so he was starting to walk back to the couch and he felt lightheaded/dizzy. He denies falling or any syncopal event or striking his head. He denies any chest pain. However as he has recently been in the hospital secondary to his congestive heart failure and has been having medications adjusted EMS was called and he was brought to the hospital for evaluation. [facility] Medical History (Updated 06/28/24 @ 07:[address] Alexis Casey, ) Paroxysmal atrial fibrillation HTN (hypertension), benign Coronary artery disease Chronic kidney disease 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, <= 40%) Esophageal obstruction Hiatal hernia Kidney disease TIA (transient ischemic attack) Hypertension Wears hearing aid Wears glasses Wears partial dentures Wears dentures History of renal disease High cholesterol Easy bruising Injury of head and neck Difficulty swallowing History of hiatal hernia Gastric reflux Former smoker Leg cramps History of pain when walking History of edema History of echocardiogram Cardiology follow-up encounter Syncope (10/2020) History of CVA (cerebrovascular accident) Traumatic subarachnoid hemorrhage (10/2020) Hyperlipidemia Claudication Barretts esophagus TIA (transient ischemic attack) Atherosclerotic heart disease of [place] coronary artery without angina pectoris Left bundle branch block Carotid bruit Left carotid artery stenosis Angiopathy, peripheral Home Medications ?Medication ?Instructions ?Recorded ?Last Taken ?Type aspirin 81 mg tablet,delayed 81 mg PO QDAY SUPPLEMENT 11/04/17 02/26/24 History release (Adult Low Dose Aspirin) cholecalciferol (vitamin D3) 25 1,000 unit PO QDAY SUPPLEMENT 03/11/23 02/26/24 History mcg (1,000 unit) capsule omeprazole 20 mg capsule,delayed 20 mg PO BID GERD #180 caps 02/11/24 02/28/24 Rx release atorvastatin 20 mg tablet 20 mg PO QPM H;D 03/27/24 Unknown History amiodarone 200 mg tablet 200 mg PO DAILY #90 tabs 06/12/24 Unknown Rx amlodipine 5 mg tablet 5 mg PO DAILY BP #90 TABLETS 06/12/24 Unknown Rx apixaban 2.5 mg tablet 2.5 mg PO BID #180 tabs 06/12/24 Unknown Rx furosemide 40 mg tablet 40 mg PO BID #180 tabs 06/12/24 Unknown Rx metoprolol tartrate 25 mg tablet 25 mg PO BID #180 tabs 06/12/24 Unknown Rx apixaban 5 mg tablet (Eliquis) 2.5 mg PO BID 06/28/24 Unknown History Allergy/AdvReac Type Severity Reaction Status Date / Time Iodinated Contrast Media AdvReac Severe CKD Verified 06/28/24 00:24 (Iodinated Contrast- Oral and IV Dye) Family History Mother CAD (coronary artery disease) Diabetes Myocardial infarction Brother CAD (coronary artery disease) Hx of CABG Brother CAD (coronary artery disease) Surgical History History of esophagogastroduodenoscopy (EGD) Hx of right cataract extraction Hx of left cataract extraction Hx of colonoscopy Hx of foot surgery History of left-sided carotid endarterectomy (2000) 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) Social History Smoking Status: Former smoker alcohol intake: current details: Rare substance use type: does not use caffeine: Yes Type: coffee Number of servings: 3 ROS ROS ED Constitutional Constitutional ED: Denies chills or fever(s) Eyes Eyes: Denies blurry vision or change in vision ENT ENT ED: Denies sore throat Cardiovascular Cardiovascular: Reports orthopnea and other Details: Negative syncope ; Denies chest pain, palpitations or racing heartbeat Respiratory/Chest Respiratory/Chest: Reports dyspnea, orthopnea and other Details: Patient reports shortness of breath is chronic and wears 2 to 4 L nasal cannula oxygen since his congestive heart failure diagnosis ; Denies cough Gastrointestinal Gastrointestinal: Denies abdominal pain, diarrhea, nausea or vomiting Genitourinary Genitourinary ED: Denies dysuria Musculoskeletal Musculoskeletal: Denies myalgias Integumentary Denies rash Neurologic Neurologic: Denies headache(s) or weakness Hematologic/Lymphatic Hematologic/Lymphatic: Reports easy bleeding and easy bruising Allergic/Immunologic Allergic/Immunologic ED: Denies mouth swelling or tongue swelling EXAM Physical Exam Const Vital Signs: 06/28/24 00:25 06/28/24 01:30 06/28/24 01:31 Temperature 98.6 F Temperature Source Oral Pulse Rate 79 70 Pulse Rate [Lying] Pulse Rate [Sitting (for 1 minute prior to obtaining)] Pulse Rate [Standing (for 1 minute prior to obtaining)] Respiratory Rate 17 18 Blood Pressure 144/66 H 148/56 H Blood Pressure [Lying] Blood Pressure [Sitting (for 1 minute prior to obtaining)] Blood Pressure [Standing (for 1 minute prior to obtaining)] Blood Pressure Mean 92 86 Blood Pressure Mean [Lying] Blood Pressure Mean [Sitting (for 1 minute prior to obtaining)] Blood Pressure Mean [Standing (for 1 minute prior to obtaining)] Pulse Ox 86 85 92 Oxygen Delivery Method Nasal Cannula Nasal Cannula Nasal Cannula Oxygen Flow Rate (L/min) 3 4 6 06/28/24 02:00 06/28/24 02:03 06/28/24 03:00 Temperature Temperature Source Pulse Rate 63 90 Pulse Rate [Lying] 107 H Pulse Rate [Sitting (for 1 minute prior to obtaining)] 91 Pulse Rate [Standing (for 1 minute prior to obtaining)] 71 Respiratory Rate 14 18 Blood Pressure 161/44 H 137/42 H Blood Pressure [Lying] 143/48 H Blood Pressure [Sitting (for 1 minute prior to obtaining)] 155/81 H Blood Pressure [Standing (for 1 minute prior to obtaining)] 161/44 H Blood Pressure Mean 83 73 Blood Pressure Mean [Lying] 79 Blood Pressure Mean [Sitting (for 1 minute prior to obtaining)] 105 Blood Pressure Mean [Standing (for 1 minute prior to obtaining)] 83 Pulse Ox 93 98 Oxygen Delivery Method Nasal Cannula Nasal Cannula Oxygen Flow Rate (L/min) 4 4 06/28/24 03:15 06/28/24 03:19 06/28/24 04:00 Temperature 98.5 F Temperature Source Pulse Rate 97 61 Pulse Rate [Lying] Pulse Rate [Sitting (for 1 minute prior to obtaining)] Pulse Rate [Standing (for 1 minute prior to obtaining)] Respiratory Rate 18 18 Blood Pressure 137/42 H 157/5 H Blood Pressure [Lying] Blood Pressure [Sitting (for 1 minute prior to obtaining)] Blood Pressure [Standing (for 1 minute prior to obtaining)] Blood Pressure Mean 73 55 Blood Pressure Mean [Lying] Blood Pressure Mean [Sitting (for 1 minute prior to obtaining)] Blood Pressure Mean [Standing (for 1 minute prior to obtaining)] Pulse Ox 94 96 92 Oxygen Delivery Method Nasal Cannula Nasal Cannula Oxygen Flow Rate (L/min) 2 2 Positive well nourished and well developed General Appearance ED: well developed HEENT Reports dry mucous membranes HEENT Narrative: No tongue or lip swelling no oral lesions no airway edema or compromise Mouth ED: Yes dry mucous membranes Mouth: dry mucous membranes Eyes PERRL and EOMs intact bilaterally General Eye ED: Negative for scleral icterus Neck supple Neck Narrative: Trace JVD noted Resp normal respiratory effort Resp Narrative: Breath sounds are diminished throughout with crackles in the bilateral bases but no nasal flaring retractions tachypnea or accessory muscle use Cardio regular rate and regular rhythm GI normal to inspection, nondistended, normoactive bowel sounds, non-tender, non- distended and no masses GI Narrative: No voluntary guarding or rigidity or pulsatile mass No fluid wave noted Auscultation: normoactive bowel sounds Palpation: soft Extremity Extremity Narrative: There is trace pitting edema to the bilateral lower extremities which is according to patient and family improved from baseline Negative Homans' sign bilaterally Neuro oriented x3, CN's II-XII intact bilaterally and no sensory deficits noted Neuro Narrative: GCS of 15 Cranial nerves II through XII are grossly intact without focal neurologic deficit No pronator drift no dysmetria no truncal ataxia NIH stroke scale score of 0 Sensorium / Orientation: alert Motor Exam: strength 5/5 throughout Psych mental status grossly normal Skin no rashes or lesions noted General Skin Exam: Negative for jaundice MDM MDM MDM Narrative Medical decision making narrative: Patient presented to the ER hypertensive but has a past medical history of this. He is requiring supplemental oxygen but also has a known history of CHF requiring O2 at baseline. He reported dizziness after standing and walking to the bathroom indicating his symptoms are most likely due to orthostasis. He is on a blood thinner but does not have headache change in vision did not have syncope did not strike his head and my concern for spontaneous or traumatic subarachnoid or subdural hemorrhage is low and do not feel the need for head CT. In order to ensure he does not have acute on chronic kidney injury acute blood loss anemia severe electrolyte abnormality or worsening of his heart failure a workup was obtained. Chest x-ray showed persistent bilateral pleural effusions which are stable compared to 1 month ago. Kidney function is elevated but at baseline with creatinine 2.35. Hemoglobin is low at 8.8 but also at baseline. Otherwise there is no significant electrolyte abnormalities. The patient was able to ambulate and walk without dizziness or unsteady gait in the ER. Therefore at this time his overall workup shows his CHF to be stable/at baseline and he is no longer experiencing any type of dizziness with ambulation I do not feel there is need for repeat admission and he is otherwise safe for discharge History & Record Review Discussion w/independent historian: Patient and Family Lab Data Attestation: I reviewed the patient's lab results. Labs: Laboratory Results - last 24 hr 06/28/24 01:27 WBC 8.8 RBC 2.86 L Hgb 8.8 L Hct 27.4 L MCV 95.8 H MCH 30.8 MCHC 32.1 RDW Std Deviation 47.5 H RDW Coeff of [place] 13.7 Plt Count 230 MPV 9.9 Immature Gran % (Auto) 0.600 Neut % (Auto) 80.0 H Lymph % (Auto) 7.1 L Meagher % (Auto) 10.1 H Eos % (Auto) 1.7 Baso % (Auto) 0.5 Absolute Neuts (auto) 7.0 Absolute Lymphs (auto) 0.62 L Nucleated RBC % 0 Sodium 139 Potassium 4.4 Chloride 102 Carbon Dioxide 33.0 H Anion Gap 5 BUN 78 H Creatinine 2.35 H Estim Creat Clear Calc 15.35 Est GFR (MDRD) Af Amer 34 L Est GFR (MDRD) Non-Af 28 L BUN/Creatinine Ratio 33.2 H Glucose 125 H Calcium 9.5 Magnesium 2.1 B-Natriuretic Peptide 692.4 H Radiography Diagnostic Testing: Clinical Impression(s) from Imaging Studies Chest X-Ray 06/28/24 00:50 IMPRESSION: No significant change. Pleural effusions are again noted. No pneumonia or pulmonary edema. 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 Instructions: Dizziness Fainting Causes, ED Heart Failure, Congestive (CHF) Prescriptions: No Action cholecalciferol (vitamin D3) 25 mcg (1,000 unit) capsule 1,000 unit PO QDAY aspirin [Adult Low Dose Aspirin] 81 mg tablet,delayed release (DR/EC) 81 mg PO QDAY atorvastatin 20 mg tablet 20 mg PO QPM omeprazole 20 mg capsule,delayed release(DR/EC) 20 mg PO BID Qty: 180 1RF furosemide 40 mg tablet 40 mg PO BID Qty: 180 3RF metoprolol tartrate 25 mg tablet 25 mg PO BID Qty: 180 3RF apixaban 2.5 mg tablet 2.5 mg PO BID Qty: 180 3RF amiodarone 200 mg tablet 200 mg PO DAILY Qty: 90 3RF amlodipine 5 mg tablet 5 mg PO DAILY Qty: 90 3RF Eliquis 5 mg tablet 2.5 mg PO BID Primary Care Provider: Gladis Castro Referrals: Gladis Castro DO [Primary Care Provider] - Activity Restrictions/Additional Instructions: Please continue all of your medications as directed by your doctors. Please try to change positions slowly as this should prevent any further dizzy episodes. If you have any further concerns please return to the ER for repeat evaluation Print Language: [place] Disposition Disposition: Home, Self Care Discharge Date/Time: 06/28/24 04:11
== END 2024-06-28 04:11 | disposition home or self-care (01) ==
PROVIDERS: Emergency Provider Emergency Medicine; PCP Internal Medicine; Visit Provider Emergency Medicine
DX: R42 Dizziness and giddiness (principal); N18.4 Chronic kidney disease, stage 4 (severe); I13.0 Hypertensive heart and chronic kidney disease with heart failure and stage 1 through stage 4 chronic kidney disease, or unspecified chronic kidney disease; I50.32 Chronic diastolic (congestive) heart failure; I48.0 Paroxysmal atrial fibrillation; I25.10 Atherosclerotic heart disease of native coronary artery without angina pectoris; E78.00 Pure hypercholesterolemia, unspecified; Z79.82 Long term (current) use of aspirin; Z79.01 Long term (current) use of anticoagulants; Z79.899 Other long term (current) drug therapy; Z87.891 Personal history of nicotine dependence; Z86.73 Personal history of transient ischemic attack (TIA), and cerebral infarction without residual deficits; Z95.1 Presence of aortocoronary bypass graft
CPT/HCPCS: 71046; 80048; 83735; 83880; 85025; 99285; A4216

== ENCOUNTER 2024-06-30 10:01 | Outpatient (RCR) | payer MEDICARE, SELFPAY ==
--- NOTE | 2024-06-30 15:06 | HP.PTEVAL_ITS ---
Patient's Visit Information Visit Information Visit Information: FEI ROGERS is a 89 year old M referred to Physical Therapy by Dr. Gladis Castro DO with a diagnosis of Weakness. Date of Evaluation: 06/30/24 Physical Therapist: Chucho Leon, PT, ATC Visit Plan Frequency: 2-3x /Week Duration: 4-6 Weeks Plan: B LE strengthening, balance and proprio, core strengthening, gait training, stair negotiation, and nustep Subjective Subjective: Pt rreporyts he has been debilitating for over a year now. Pt has had several medical concerns over the last several years which has made him debilitated. Pt notes he gets very short of breath while ambulating. Pt notes he has had several cardiac and circulatory issues that has contributed to his w eakness. Pt has been using 2-3 LO2 for the past 6 weeks secondary to his breathing issues. Pt reports he has 4 stairs to get into the house that he negotiates reciprocally. Pt reports he has significant difficulty with getting dressed secondary to shortness of breath. Pt also notes he has difficluty with ambulating around his house secondary to fatigue and weakness. Pt reports he is only in pain when he walks a lot. Pt has good sensation in his LE's. Pt reports he will occasionally become dizzy or lightheaded while ambulating. Objective Objective: Neuro: B LE sensation is WNL to light touch. Gait: Pt is able to ambulate approximately 120 feet from the waiting room to the evaluation room before needing to rest. No AD. TU seconds Sit to stands: 9 repetitions in 30 seconds MMT: B hip flex and knee flex= 4-/5. All other MMT 5/5 throughout Balance/Special Test Scores Lower Extremity Functional Score: 12 Goals Goal 1:: Increase B LE strength to 5/5 throughout to aid with IADL's Goal Time Frame: 4-6 Weeks Goal 2:: Pt will be able to negotiate 10 stairs reciprocally with 1 handrail to aid with I at home Goal Time Frame: 4-6 Weeks Goal 3:: Pt will be able to ambulate greater than 340 feet to aid with community ambulation Goal Time Frame: 4-6 Weeks Goal 4:: I with HEP Goal Time Frame: 4-6 Weeks Rehabilitation Potential Physical Therapy Diagnosis: Pt has B LE weakness, intolerance for ambulation, and difficulty with stairs secondary to debilitation Rehabilitation Potential: Good Anticipated Interventions Patient/Client Instruction: Educate patient on: Condition and Plan of Care For the Purpose of:: To improve self management Therapeutic Exercise to Include: Strength training, Endurance training, Balance training, Gait and locomotor training and Dynamic Lumbar Stabilization For the Purpose of:: To decrease pain, To improve muscle performance and motor function and To increase tolerance to activity/condition/position Text: Thank you for the opportunity to evaluate your patient. For Medicare and Medicare HMO plans, please review the plan of care and approve it. It will need to be FAXED BACK to us at [phone] for Medicare purposes. For Medicare only, by signing this I certify the plan of care. Please let me know if there are questions or concerns regarding this plan of care. Physician Signature: Date:
--- NOTE | 2024-08-28 12:23 | HP.PT.NRP ---
Patient Information Patient Information: FEI ROGERS was seen in my office for initial evaluation on 06/30/24. The following Plan of Care was established for this patient: POC Established Initial Frequency: 2-3x /Week Initial Duration: 4-6 Weeks Anticipated Interventions Patient/Client Instruction: Educate patient on: Condition and Plan of Care For the Purpose of:: To improve self management Therapeutic Exercise to Include: Strength training, Endurance training, Balance training, Gait and locomotor training and Dynamic Lumbar Stabilization For the Purpose of:: To decrease pain, To improve muscle performance and motor function and To increase tolerance to activity/condition/position Last Seen Last Seen: This patient was last seen in our office . Pertinent comments regarding their Physical therapy will appear below: Pt has not returned for physical therapy for greater than 30 days and is discontinued at this time. At this point I will be discontinuing this patient from physical therapy. I would be happy to see this patient again in the future if found appropriate by the physician. Thank you! Chucho Leon, PT, ATC Balance/Gait/Functional tests Balance/Special Test Scores Lower Extremity Functional Score: 12
== END 2024-06-30 19:00 | disposition home or self-care (01) ==
LOC: PT 10:01
PROVIDERS: PCP Internal Medicine; Referring Provider Internal Medicine; Visit Provider Internal Medicine
DX: R53.1 Weakness (principal)
CPT/HCPCS: 97161

== ENCOUNTER → 2024-07-05 | Outpatient (CLI) | payer MEDICARE, SELFPAY ==
[2024-07-05 18:06] LABS: Absolute Lymphocyte Count 0.95 X10^3/uL (0.83-4.51); Absolute Neutrophil Count 8.1 X10^3/uL (2.0-7.7); Basophil# 0.06 X10^3/uL; Basophil% 0.6 % (0-1); Eosinophil# 0.13 X10^3/uL; Eosinophils% 1.2 % (0-5); Hematocrit 31.5 % (40-54); Hemoglobin 9.5 g/dL (13.0-16.5); Lymphocyte # 0.95 X10^3/ul (0.83-4.51); Mean Corp Hgb Conc 30.2 g/dL (32-36); Mean Corpuscular Hgb 29.7 pg (27.0-32.0); Mean Corpuscular Volume 98.4 fL (80-94); Mean Platelet Vol. 10.4 fl (6.2-12.0); Monocyte# 1.24 X10^3/uL; Monocyte% 11.7 % (0-10); NRBC Flagged by Analyzer 0 % (0-5); Neutrophil # 8.09 X10^3/uL (2.7-7.7); Neutrophil % 76.5 % (47-70); Platelet Count 381 K/mm3 (150-450); RBC Distribution Width CV 14.4 % (11.6-14.6); RBC Distribution Width SD 50.9 fl (35.1-43.9); RET-HE 30.9 pg (30-35); Reticulocyte Count 3.23 % (0.5-1.5); White Blood Count 10.6 K/mm3 (4.4-11.0)
[2024-07-05 18:44] LABS: Ferritin 157 ng/mL (26-388); Iron 37 ug/dL (65-175); Iron Binding Capacity,Total 351 ug/dL (250-450); PERCENT IRON SATURATION 10.5 % (15.0-55.0)
[2024-07-06 07:50] LABS: Vitamin B12 651 pg/mL (211-911)
== END | disposition home or self-care (01) ==
LOC: MFPLAB 16:22
PROVIDERS: PCP Internal Medicine; Referring Provider Internal Medicine; Visit Provider Internal Medicine
DX: N18.4 Chronic kidney disease, stage 4 (severe) (principal); D63.8 Anemia in other chronic diseases classified elsewhere
CPT/HCPCS: 36415; 82607; 82728; 83540; 83550; 85025; 85045

== ENCOUNTER → 2024-07-10 | Outpatient (CLI) | payer MEDICARE, SELFPAY ==
[2024-07-10 15:31] LABS: Anion Gap 5 (5-15); BUN 57 mg/dL (7-18); BUN/Creat Ratio 21.8 RATIO (10-20); Calcium,Total 8.9 mg/dL (8.5-10.1); Chloride 100 mmol/L (98-107); Creatinine, Serum 2.62 mg/dL (0.70-1.30); EST Glomerular Filtration Rate 25 mL/min (>60); Est Glom Filt Rate - Afr Amer 30 mL/min (>60); Glucose 106 mg/dL (74-106); Potassium 4.2 mmol/L (3.5-5.1); Sodium Level 137 mmol/L (136-145)
== END | disposition home or self-care (01) ==
LOC: MFPLAB 12:08
PROVIDERS: PCP Internal Medicine; Referring Provider Physician Assistant Medical; Visit Provider Physician Assistant Medical
DX: I50.9 Heart failure, unspecified (principal); N18.4 Chronic kidney disease, stage 4 (severe)
CPT/HCPCS: 36415; 80048

== ENCOUNTER 2024-07-16 00:27 | Inpatient (IN) | payer MEDICARE, SELFPAY ==
[2024-07-16] VITALS (71 sets, daily range): BP systolic 40–171; BP diastolic 11–108; PULSE 65–115; RESP 16–36; TEMP 33.1–38.2; O2SAT 49–98; BMI 21.4; BMI 19.9
[2024-07-16] MEDS: 0.9% Normal Saline (1000mL) 1,000 ML 999 ML IV ×3 (00:35→04:06)
[2024-07-16] MEDS: Etomidate 20 MG/10 ML Vial IV (00:39)
[2024-07-16] MEDS: Succinylcholine Chloride 200 MG/10 ML SYRINGE 100 MG IV (00:40)
--- NOTE | 2024-07-16 00:43 | NURSING ---
PT INTUBATED. RESLTESS. BILAT SOFT RESTRAINTS APPLIED.
[2024-07-16] MEDS: DOPamine IV 800 MG/250 ML IV.SOLN. 5.7 MG CONT INF (00:45)
--- NOTE | 2024-07-16 00:55 | EKG12_ITS ---
Test Reason : DYSRHYTHMIA Blood Pressure : */* mmHG Vent. Rate : 21 BPM Atrial Rate : 21 BPM P-R Int : * ms QRS Dur : 146 ms QT Int : 686 ms P-R-T Axes : * 60 48 degrees QTcB Int : 404 ms Critical Test Result: Low HR , Complete Heart Block Confirmed by DAYA ALFORD, KEITH ([id number]), make up editor ELIUD MARINELLI ([id number]) on 07/17/2024 10:52:25 AM Referred By: Keith Bagley Confirmed By: KEITH BAGLEY MD
[2024-07-16 01:05] LABS: Absolute Lymphocyte Count 0.98 X10^3/uL (0.83-4.51); Absolute Neutrophil Count 7.9 X10^3/uL (2.0-7.7); Basophil# 0.05 X10^3/uL; Basophil% 0.5 % (0-1); Eosinophil# 0.11 X10^3/uL; Eosinophils% 1.1 % (0-5); Hematocrit 29.5 % (40-54); Hemoglobin 9.2 g/dL (13.0-16.5); Lymphocyte # 0.98 X10^3/ul (0.83-4.51); Lymphocyte % 9.6 % (19-41); Mean Corp Hgb Conc 31.2 g/dL (32-36); Mean Corpuscular Hgb 30.6 pg (27.0-32.0); Mean Platelet Vol. 11.4 fl (6.2-12.0); Monocyte# 1.06 X10^3/uL; Monocyte% 10.4 % (0-10); NRBC Flagged by Analyzer 0 % (0-5); Neutrophil # 7.94 X10^3/uL (2.7-7.7); Neutrophil % 77.7 % (47-70); Platelet Count 292 K/mm3 (150-450); RBC Distribution Width CV 15.4 % (11.6-14.6); RBC Distribution Width SD 54.4 fl (35.1-43.9); Red Blood Count 3.01 M/mm3 (4.6-6.2); White Blood Count 10.2 K/mm3 (4.4-11.0)
[2024-07-16] MEDS: fentaNYL drip 100 ML 2.5 MCG CONT INF (01:05)
[2024-07-16] MEDS: Midazolam 50 MG in 0.9% Normal Saline (100mL Bag) 90 ML CONT INF (01:08)
--- NOTE | 2024-07-16 01:20 | RAD_ITS ---
INDICATION: S/P intubation EXAMINATION/TECHNIQUE: X-RAY - XR Chest 1 View AP portable. 1:09 AM COMPARISON: Prior study dated: 06/28/2024 FINDINGS: LINES/DEVICES: Tip of the endotracheal tube is 2 cm above the jessica. NG tube tip in the mid stomach. Tubing, device or object overlying the left upper abdomen uncertain location. LUNGS: Hazy opacities throughout the lungs increased compared to prior. Small bilateral pleural effusions, increased. No consolidation. No pneumothorax. MEDIASTINUM: Unremarkable. CARDIAC SILHOUETTE: Enlarged. Stable size. Sternal wires. BONES AND SOFT TISSUES: No acute abnormalities. RAD/Chest 1 View (Portable) IMPRESSION: Satisfactory ET tube position. Mild bilateral airspace disease with small pleural effusions increased compared to prior. Electronically Signed: Nini Santiago MD at 1:43 EST ,
[2024-07-16 01:23] LABS: International Normalized Ratio 1.5; Partial Thromboplast Time 26.5 Seconds (24.1-36.2); Prothrombin Time (Protime)PT. 17.7 SECONDS (11.7-14.9)
[2024-07-16 01:25] LABS: Anion Gap 11 (5-15); BUN 82 mg/dL (7-18); BUN/Creat Ratio 23.8 RATIO (10-20); Calcium,Total 9.3 mg/dL (8.5-10.1); Chloride 99 mmol/L (98-107); Creatinine, Serum 3.45 mg/dL (0.70-1.30); EST Glomerular Filtration Rate 18 mL/min (>60); Est Glom Filt Rate - Afr Amer 22 mL/min (>60); Estimated Creatinine Clearance 12.64 ml/min; Glucose 216 mg/dL (74-106); Magnesium 2.6 mg/dL (1.6-2.6); Potassium 5.1 mmol/L (3.5-5.1); Sodium Level 136 mmol/L (136-145)
[2024-07-16] MEDS: Atropine Sulfate 1 MG/10 ML Syringe IV (01:26)
--- NOTE | 2024-07-16 02:15 | CON.PCM.CA_ITS ---
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 Was initially started on temporary external pacemaker. The patient is being brought to the cardiac catheterization lab emergently for placement of a temporary transvenous pacemaker. Depending on the clinical course further recommendations will be made. (2) Paroxysmal atrial fibrillation: PLAN: Patient has a history of atrial fibrillation with a left bundle branch block. (3) Left ventricular systolic dysfunction: PLAN: Patient was noted to have left ventricular systolic dysfunction estimated ejection fraction of 35%. Will optimize medical therapy. (4) Atherosclerotic heart disease of [place] coronary artery without angina pectoris: QUALIFIERS: [place] vs. transplanted heart: [place] heart Qualified Code(s): I25.10 - Atherosclerotic heart disease of [place] coronary artery without angina pectoris PLAN: Patient has a known history of coronary artery disease status post coronary bypass surgery. (5) CKD (chronic kidney disease) stage 4, GFR 15-29 ml/min: PLAN: Patient has known chronic kidney disease. HPI Consult Data Date of Consult: 07/16/24 HPI Narrative HPI Narrative: FEI ROGERS, is a 89 M who presents to the emergency room after being brought in by the emergency medical squad. Patient apparently started getting short of breath at home and told his he needed more air and oxygen and then afterwards he was noted to have passed out. The emergency medical squad called. An EKG demonstrated complete heart block with a rate in the 20s. Patient was brought to the emergency room and in the emergency room EKG confirmed the same. I was called by the emergency room physician after patient started dropping his blood pressure and needed to be intubated. He is a gentleman with a history of known coronary artery disease, and peripheral vascular disease. He is status post coronary bypass surgery in 2007 with a left internal mammary artery to the left anterior descending artery saphenous vein graft to diagonal branch lateral circumflex of the right coronary artery and posterior descending artery. He has had some claudication issues. He did have evidence of ankle-brachial indices which were approximately 0.6 bilaterally. Medical therapy has been recommended. He had been admitted to the hospital in April with congestive heart failure his ejection fraction was noted to be 35% he was in atrial fibrillation he was started on anticoagulation. His medications were optimized. [facility] Medical History Paroxysmal atrial fibrillation HTN (hypertension), benign Coronary artery disease Chronic kidney disease 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, <= 40%) Esophageal obstruction Hiatal hernia Kidney disease TIA (transient ischemic attack) Hypertension Wears hearing aid Wears glasses Wears partial dentures Wears dentures History of renal disease High cholesterol Easy bruising Injury of head and neck Difficulty swallowing History of hiatal hernia Gastric reflux Former smoker Leg cramps History of pain when walking History of edema History of echocardiogram Cardiology follow-up encounter Syncope (10/2020) History of CVA (cerebrovascular accident) Traumatic subarachnoid hemorrhage (10/2020) Hyperlipidemia Claudication Barretts esophagus TIA (transient ischemic attack) Atherosclerotic heart disease of [place] coronary artery without angina pectoris Left bundle branch block Carotid bruit Left carotid artery stenosis Angiopathy, peripheral Home Medications ?Medication ?Instructions ?Recorded ?Last Taken ?Type aspirin 81 mg tablet,delayed 81 mg PO QDAY SUPPLEMENT 11/04/17 02/26/24 History release (Adult Low Dose Aspirin) cholecalciferol (vitamin D3) 25 1,000 unit PO QDAY SUPPLEMENT 03/11/23 02/26/24 History mcg (1,000 unit) capsule atorvastatin 20 mg tablet 20 mg PO QPM H;D 03/27/24 Unknown History amlodipine 5 mg tablet 5 mg PO DAILY BP #90 TABLETS 06/12/24 Unknown Rx apixaban 2.5 mg tablet 2.5 mg PO BID #180 tabs 06/12/24 Unknown Rx metoprolol tartrate 25 mg tablet 25 mg PO BID #180 tabs 06/12/24 Unknown Rx apixaban 5 mg tablet (Eliquis) 2.5 mg PO BID 06/28/24 Unknown History amiodarone 200 mg tablet 200 mg PO DAILY #90 tabs 07/03/24 Unknown Rx torsemide 10 mg tablet 10 mg PO .COMPLEX #60 tabs 07/03/24 Unknown Rx omeprazole 20 mg capsule,delayed 20 mg PO BID GERD #180 caps 07/04/24 Unknown Rx release Allergy/AdvReac Type Severity Reaction Status Date / Time Iodinated Contrast Media AdvReac Severe CKD Verified 06/28/24 00:24 (Iodinated Contrast- Oral and IV Dye) Family History Mother CAD (coronary artery disease) Diabetes Myocardial infarction Brother CAD (coronary artery disease) Hx of CABG Brother CAD (coronary artery disease) Surgical History History of esophagogastroduodenoscopy (EGD) Hx of right cataract extraction Hx of left cataract extraction Hx of colonoscopy Hx of foot surgery History of left-sided carotid endarterectomy (2000) 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) Social History Smoking Status: Former smoker alcohol intake: current details: Rare substance use type: does not use caffeine: Yes Type: coffee Number of servings: 3 Physical Exam Narrative Patient intubated and noncommunicative uncooperative HEENT hearing grossly normal bilaterally Head and Scalp: atraumatic Eyes EOMs intact bilaterally Neck General: normal visual inspection Chest inspection of chest normal and palpation of chest normal Resp normal respiratory effort Auscultation: clear to auscultation bilaterally Cardio regular rate, regular rhythm, S1 normal heart sound and S2 normal heart sound Jugular Venous Distention: JVD GI normal to inspection, nondistended, normoactive bowel sounds Extremity normal capillary refill and no pedal edema Peripheral Pulses: Yes pulses 2+ throughout and femoral pulses present Skin no rashes or lesions noted Risk Stratification Risk Stratification Applicable: No Objective Data Vital Signs: Vital Signs Temp Pulse Resp BP Pulse Ox O2 Del Method O2 Flow Rate 98.1 F 82 20 H 171/83 H 81 Mechanical Ventilator 4 07/16/24 00:28 07/16/24 02:00 07/16/24 02:00 07/16/24 02:00 07/16/24 02:00 07/16/24 02:00 07/16/24 00:28 FiO2 100 07/16/24 02:00 Oxygen Flow Rate (L/min) 4 Oxygen Delivery Method Mechanical Ventilator Weight: 133 lb 2.547 oz Body Mass Index (BMI) 21.4 Intake & Output: Intake and Output for Last 24 Hours 07/14/24 07/15/24 07/16/24 23:59 23:59 23:59 Intake Total 1208.86 / 1208.86 Balance 1208.86 / 1208.86 Lab / Micro Data 07/16/24 00:50 07/16/24 00:50 Labs: Laboratory Results - last 24 hr 07/16/24 00:50: WBC 10.2, RBC 3.01 L, Hgb 9.2 L, Hct 29.5 L, MCV 98.0 H, MCH 30.6, MCHC 31.2 L, RDW Std Deviation 54.4 H, RDW Coeff of [place] 15.4 H, Plt Count 292, MPV 11.4, Immature Gran % (Auto) 0.700, Neut % (Auto) 77.7 H, Lymph % (Auto) 9.6 L, [place] % (Auto) 10.4 H, Eos % (Auto) 1.1, Baso % (Auto) 0.5, A bsolute Neuts (auto) 7.9 H, Absolute Lymphs (auto) 0.98, Nucleated RBC % 0, PT 17.7 H, INR 1.5, APTT 26.5, Sodium 136, Potassium 5.1, Chloride 99, Carbon Dioxide 26.0, Anion Gap 11, BUN 82 H, Creatinine 3.45 H, Estim Creat Clear Calc 12.64, Est GFR (MDRD) Af Amer 22 L, Est GFR (MDRD) Non-Af 18 L, BUN/Creatinine Ratio 23.8 H, Glucose 216 H, Calcium 9.3, Magnesium 2.6 Cardiology Labs/Tests 07/16/24 00:50: WBC 10.2, RBC 3.01 L, Hgb 9.2 L, Hct 29.5 L, MCV 98.0 H, MCH 30.6, MCHC 31.2 L, Plt Count 292, MPV 11.4, Immature Gran % (Auto) 0.700, Neut % (Auto) 77.7 H, Lymph % (Auto) 9.6 L, [place] % (Auto) 10.4 H, Eos % (Auto) 1.1, Baso % (Auto) 0.5, Absolute Neuts (auto) 7.9 H, Nucleated RBC % 0, PT 17.7 H, INR 1.5, APTT 26.5, Sodium 136, Potassium 5.1, Chloride 99, Carbon Dioxide 26.0, Anion Gap 11, BUN 82 H, Creatinine 3.45 H, Est GFR (MDRD) Af Amer 22 L, Est GFR (MDRD) Non-Af 18 L, BUN/Creatinine Ratio 23.8 H, Glucose 216 H, Calcium 9.3, Magnesium 2.6 Rhythm: EKG: ECHO: Stress Test: Cardiac Cath: PCI: CT Surgery: Holter monitor: EPS: PPM: CXR: Chest CT Scan: Radiography Diagnostic Testing: Radiology Impression Chest X-Ray 07/16/24 01:20 IMPRESSION: Satisfactory ET tube position. Mild bilateral airspace disease with small pleural effusions increased compared to prior. Electronically Signed: Nnii Santiago MD at 1:43 EST ,
--- NOTE | 2024-07-16 02:40 | EX.ED.DYSGE1 ---
HPI History of Present Illness Chief Complaint: Chest Pain Informant: EMS and other (Chart review) Narrative Narrative: Patient is an 89-year-old male with past medical history of chronic kidney disease congestive heart failure hypertension and coronary artery disease. EMS reports they were called because the patient woke around midnight with complaints of shortness of breath. EMS states when they arrived the patient was minimally responsive and it was noted his heart rate was approximately 20. With concern for complete heart block EMS states they started cutaneous pacing did seem to have improvement. Upon arrival the patient is lethargic and does not offer further history PFSH [facility] Medical History Paroxysmal atrial fibrillation HTN (hypertension), benign Coronary artery disease Chronic kidney disease 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, <= 40%) Esophageal obstruction Hiatal hernia Kidney disease TIA (transient ischemic attack) Hypertension Wears hearing aid Wears glasses Wears partial dentures Wears dentures History of renal disease High cholesterol Easy bruising Injury of head and neck Difficulty swallowing History of hiatal hernia Gastric reflux Former smoker Leg cramps History of pain when walking History of edema History of echocardiogram Cardiology follow-up encounter Syncope (10/2020) History of CVA (cerebrovascular accident) Traumatic subarachnoid hemorrhage (10/2020) Hyperlipidemia Claudication Barretts esophagus TIA (transient ischemic attack) Atherosclerotic heart disease of [place] coronary artery without angina pectoris Left bundle branch block Carotid bruit Left carotid artery stenosis Angiopathy, peripheral Home Medications ?Medication ?Instructions ?Recorded ?Last Taken ?Type aspirin 81 mg tablet,delayed 81 mg PO QDAY SUPPLEMENT 11/04/17 02/26/24 History release (Adult Low Dose Aspirin) cholecalciferol (vitamin D3) 25 1,000 unit PO QDAY SUPPLEMENT 03/11/23 02/26/24 History mcg (1,000 unit) capsule atorvastatin 20 mg tablet 20 mg PO QPM H;D 03/27/24 Unknown History amlodipine 5 mg tablet 5 mg PO DAILY BP #90 TABLETS 06/12/24 Unknown Rx metoprolol tartrate 25 mg tablet 25 mg PO BID #180 tabs 06/12/24 Unknown Rx apixaban 5 mg tablet (Eliquis) 2.5 mg PO BID blood thinner 06/28/24 Unknown History amiodarone 200 mg tablet 200 mg PO DAILY #90 tabs 07/03/24 Unknown Rx torsemide 10 mg tablet 10 mg PO .COMPLEX #60 tabs 07/03/24 Unknown Rx omeprazole 20 mg capsule,delayed 20 mg PO BID GERD #180 caps 07/04/24 Unknown Rx release ferrous sulfate 325 mg (65 mg 325 mg PO DAILY anemia 07/16/24 Unknown History iron) tablet (Feosol) Allergy/AdvReac Type Severity Reaction Status Date / Time Iodinated Contrast Media AdvReac Severe CKD Verified 06/28/24 00:24 (Iodinated Contrast- Oral and IV Dye) Family History Mother CAD (coronary artery disease) Diabetes Myocardial infarction Brother CAD (coronary artery disease) Hx of CABG Brother CAD (coronary artery disease) Surgical History History of esophagogastroduodenoscopy (EGD) Hx of right cataract extraction Hx of left cataract extraction Hx of colonoscopy Hx of foot surgery History of left-sided carotid endarterectomy (2000) 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) Social History Smoking Status: Former smoker alcohol intake: current details: Rare substance use type: does not use caffeine: Yes Type: coffee Number of servings: 3 ROS ROS ED ROS Narrative Unable to obtain review of systems secondary to patient's critical status EXAM Physical Exam Const Vital Signs: 07/16/24 00:28 07/16/24 00:34 07/16/24 00:37 Temperature 98.1 F Temperature Source Oral Pulse Rate 73 Pulse Rate [2] Respiratory Rate 20 H Respiratory Rate [2] Respiratory Effort Short of Breath Short of Breath Respiratory Depth Shallow Respiratory Pattern Blood Pressure 127/100 H Blood Pressure Mean 109 Pulse Ox 50 Oxygen Delivery Method Nasal Cannula Oxygen Flow Rate (L/min) 4 Fraction of Inspired Oxygen (FIO2) 07/16/24 00:45 07/16/24 00:55 07/16/24 01:09 Temperature Temperature Source Pulse Rate 65 85 80 Pulse Rate [2] Respiratory Rate 28 H 24 H 17 Respiratory Rate [2] Respiratory Effort Respiratory Depth Respiratory Pattern Normal Blood Pressure 66/34 L 133/51 H Blood Pressure Mean 44 78 Pulse Ox 58 95 97 Oxygen Delivery Method Oxygen Flow Rate (L/min) Fraction of Inspired Oxygen (FIO2) 100 07/16/24 01:10 07/16/24 01:25 07/16/24 01:37 Temperature Temperature Source Pulse Rate 80 85 82 Pulse Rate [2] Respiratory Rate 22 H 25 H 28 H Respiratory Rate [2] Respiratory Effort Respiratory Depth Respiratory Pattern Blood Pressure 93/77 66/34 L 133/108 H Blood Pressure Mean 82 44 116 Pulse Ox 49 Oxygen Delivery Method Mechanical Ventilator Mechanical Ventilator Oxygen Flow Rate (L/min) Fraction of Inspired Oxygen (FIO2) 07/16/24 01:39 07/16/24 01:41 07/16/24 01:45 Temperature Temperature Source Pulse Rate 81 77 Pulse Rate [2] 82 Respiratory Rate 33 H 17 Respiratory Rate [2] 21 H Respiratory Effort Respiratory Depth Respiratory Pattern Blood Pressure 40/15 L Blood Pressure Mean 25 Pulse Ox Oxygen Delivery Method Oxygen Flow Rate (L/min) Fraction of Inspired Oxygen (FIO2) 07/16/24 01:48 07/16/24 01:49 07/16/24 01:50 Temperature Temperature Source Pulse Rate 75 115 H 78 Pulse Rate [2] Respiratory Rate 21 H 22 H 28 H Respiratory Rate [2] Respiratory Effort Respiratory Depth Respiratory Pattern Blood Pressure 139/11 H 114/21 L Blood Pressure Mean 40 45 Pulse Ox 81 Oxygen Delivery Method Oxygen Flow Rate (L/min) Fraction of Inspired Oxygen (FIO2) 07/16/24 01:52 07/16/24 01:56 07/16/24 02:00 Temperature Temperature Source Pulse Rate 92 85 82 Pulse Rate [2] Respiratory Rate 36 H 18 20 H Respiratory Rate [2] Respiratory Effort Respiratory Depth Respiratory Pattern Blood Pressure 114/21 L 142/36 H 171/83 H Blood Pressure Mean 52 57 102 Pulse Ox 88 81 Oxygen Delivery Method Mechanical Ventilator Mechanical Ventilator Oxygen Flow Rate (L/min) Fraction of Inspired Oxygen (FIO2) 100 07/16/24 02:10 Temperature 98.1 F Temperature Source Pulse Rate 82 Pulse Rate [2] Respiratory Rate 16 Respiratory Rate [2] Respiratory Effort Respiratory Depth Respiratory Pattern Blood Pressure 170/82 H Blood Pressure Mean 111 Pulse Ox 82 Oxygen Delivery Method Oxygen Flow Rate (L/min) Fraction of Inspired Oxygen (FIO2) Constitutional Narrative: Patient is pale/flores and ashen HEENT HEENT Narrative: No tongue or lip swelling no oral lesions no airway edema or compromise Normocephalic atraumatic No tongue or cheek biting to suggest seizure activity Eyes Eyes Narrative: Pupils are dilated and sluggish to respond to light Neck Neck Narrative: No bony deformity or step-off of the cervical spine Chest Wall palpation of chest normal Chest Narrative: No bony deformity or crepitance noted Resp Resp Narrative: Breath sounds are diminished throughout but overall clear to auscultation. Patient has mild tachypnea noted without nasal flaring retractions stridor or accessory muscle use Cardio Rate: other Other Details: Bradycardic rate with irregular rhythm Central and peripheral pulses are weak GI non-tender, non-distended and no masses GI Narrative: Soft nontender nondistended with hypoactive bowel sounds No pulsatile mass or fluid wave Auscultation: hypoactive bowel sounds Palpation: soft Extremity normal to inspection Extremity Narrative: No asymmetric edema no pitting edema negative Homans' sign bilaterally Neuro Neuro Narrative: Patient is lethargic/obtunded with GCS of 10 He will occasionally answer questions but will not open his eyes or follow commands However there is no focal neurologic deficit noted Sensorium / Orientation: lethargic Psych Psych Narrative: Patient is obtunded Skin Skin Narrative: Skin is cool pale and ashen capillary refill is 3 seconds MDM MDM MDM Narrative Medical decision making narrative: Patient arrived to the ER with an improved heart rate compared to a EMS reported at home although he was receiving transcutaneous pacer. The patient was stopped and his heart rate reduced to approximately 20 and EKG confirmed he is in a complete heart block. As his GCS is 10 he has minimal gag reflex and his mental status seems to be diminishing versus improving with improved heart rate I do not feel he is doing well protecting his airway and the decision was made to intubate as documented below. While performing his workup and care his blood pressure began to reduce and it was noted that his heart rate was not maintaining near 80 as a transcutaneous pacer was set. Secondary to his he was given atropine and the voltage was increased. Despite this the ability for the transcutaneous pacing to capture was unsuccessful and the patient had approximately 3-minute episode of cardiopulmonary arrest. ACLS protocol was followed as documented below. Following this he did have spontaneous return of circulation. At that time the voltage was increased to 150 Amps and did obtain good capture of the cardiac muscle. Dr. Bagley/cardiology was contacted and arrived to the hospital and will take the patient to the Support Services Specialist for temporary pacemaker. The patient was intubated using the glide scope. The patient was given 20 mg of etomidate and 100 mg of succinylcholine for sedation and paralyzation. Following this the glide scope was used to visualize the vocal cords and the 7.5 ET tube was passed and set to 23 cm at the lip. Confirmation was by color change capnography fogging of tube in bilateral breath sounds. Patient tolerated procedure well without complication ACLS protocol was followed for roughly a 3-minute timeframe patient underwent cardiopulmonary. Patient received 1 amp of epinephrine. CPR was performed as in accordance with ACS guidelines. He did receive return of spontaneous circulation after approximate 1 round of CPR. History & Record Review Discussion w/independent historian: EMS personnel and Family Lab Data Attestation: I reviewed the patient's lab results. Labs: Laboratory Results - last 24 hr 07/16/24 00:50 WBC 10.2 RBC 3.01 L Hgb 9.2 L Hct 29.5 L MCV 98.0 H MCH 30.6 MCHC 31.2 L RDW Std Deviation 54.4 H RDW Coeff of [place] 15.4 H Plt Count 292 MPV 11.4 Immature Gran % (Auto) 0.700 Neut % (Auto) 77.7 H Lymph % (Auto) 9.6 L [place] % (Auto) 10.4 H Eos % (Auto) 1.1 Baso % (Auto) 0.5 Absolute Neuts (auto) 7.9 H Absolute Lymphs (auto) 0.98 Nucleated RBC % 0 PT 17.7 H INR 1.5 APTT 26.5 Sodium 136 Potassium 5.1 Chloride 99 Carbon Dioxide 26.0 Anion Gap 11 BUN 82 H Creatinine 3.45 H Estim Creat Clear Calc 12.64 Est GFR (MDRD) Af Amer 22 L Est GFR (MDRD) Non-Af 18 L BUN/Creatinine Ratio 23.8 H Glucose 216 H Calcium 9.3 Magnesium 2.6 Radiography Diagnostic Testing: Clinical Impression(s) from Imaging Studies Chest X-Ray 07/16/24 01:20 IMPRESSION: Satisfactory ET tube position. Mild bilateral airspace disease with small pleural effusions increased compared to prior. Electronically Signed: Nini Santiago MD at 1:43 EST , Chest x-ray as interpreted by the emergency medicine physician reveals ET tube to be in proper position without pneumothorax and small bilateral pleural effusion Critical Care Time Critical Care Time: Yes Critical care time (excluding procedures): Discussing w/Patient &/or Family/[place], Discussing w/Consultants, Arranging Admission or Transfer, Performing Direct Patient Care at Bedside and - (Please note critical care time of 41 minutes) Discharge Plan Dx/Rx/DC Orders Clinical Impression: Complete heart block by electrocardiogram, Cardiopulmonary arrest with successful resuscitation, Essential hypertension, Paroxysmal atrial fibrillation, CHF (congestive heart failure), CKD (chronic kidney disease) stage 4, GFR 15-29 ml/min Disposition Disposition: Acute Care Hospital [facility] Discharge Date/Time: 07/16/24 02:20
--- NOTE | 2024-07-16 03:02 | EX.PACEMAKER ---
Pacemaker Procedure Note Pacemaker Procedure Note Temporary transvenous pacemaker Patient was brought from the emergency room to the cardiac catheterization lab in for external pacing with no blood pressure obtainable and intubated. The patient was then put on the Bead Stringer table in the right groin and prepped in the usual sterile manner. A 7 [place] venous sheath was placed under fluoroscopic control and a temporary balloontipped catheter was then advanced under fluoroscopic control to the right ventricular apex. Pacing rate was set at 80 with an MA of 5 and good capture obtained. Attention was then directed to the left femoral area and a 5 [place] arterial sheath was placed without difficulty and connected to the arterial line. The initial opening pressure was noted to be 115/37 mmHg. Both areas were then sutured in place with 3-0 silk and taped. Plan to be transferred to the intensive care unit.
--- NOTE | 2024-07-16 03:16 | PCM.HP.STD ---
[facility] - General General Date of Admission: 07/16/24 Date of Service: 07/16/24 Chief Complaint: Complete Heart Block with Code Blue. HPI Narrative FEI ROGERS, is a 89 M with a past medical history of essential hypertension; on amlodipine, metoprolol and torsemide, hyperlipidemia; on atorvastatin, CAD; s/p CABG x 5 (2007) on BASA, paroxysmal atrial fibrillation with an LBBB; on amiodarone and apixaban, history of chronic systolic CHF; with LVEF ~35%, history of TIA/CVA (2020), history of traumatic SDH (2020), history of syncope (2020), history of subdural hygroma, history of Left carotid stenosis (2000); s/p CEA x 2, PVD; with history of claudication, history of foot fracture; s/p ORIF, CKD; stage IV, GERD with history of Bales's esophagus; on omeprazole, history of esophageal stricture; with chronic dysphagia, history of hiatal hernia and history of allergy to IV contrast dye who presented to [facility] ER after abruptly becoming short of breath at home and then losing consciousness. EMS was activated and EKG revealed complete heart block with a heart rate in the ~20 bpm range. Patient was brought emergently to the emergency room with EKG confirming the same diagnosis of complete heart block. Master Automotive Glass Technician on-call was emergently contacted for transvenous pacemaker placement. Patient had initially been placed on transcutaneous pacer pads that subsequently failed to capture with the patient then having CODE BLUE with 3 minutes of ACLS protocol including intubation with return of his heart rate. According to the respiratory therapist patient was noted to have significant bleeding from his ET tube after compressions but he has had no further significant bleeding since that time. He was then emergently taken for transvenous pacemaker placement with patient tolerating procedure well. I personally spoke with manufacturing engineer supervisor on-call with his help and guidance greatly appreciated. Patient was then admitted to the ICU for ongoing care for stay that is expected to extend beyond 2 midnights. Shortly after patient arrived in ICU he began to develop signs of Sepsis with Septic Shock with Leukocytosis of 18K along with hypothermia of 91.6 ?F and severe hypotension requiring Levophed drip so empiric IV vancomycin and IV Zosyn were started with cultures pending at this time. [facility] Medical History Paroxysmal atrial fibrillation HTN (hypertension), benign Coronary artery disease Chronic kidney disease 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, <= 40%) Esophageal obstruction Hiatal hernia Kidney disease TIA (transient ischemic attack) Hypertension Wears hearing aid Wears glasses Wears partial dentures Wears dentures History of renal disease High cholesterol Easy bruising Injury of head and neck Difficulty swallowing History of hiatal hernia Gastric reflux Former smoker Leg cramps History of pain when walking History of edema History of echocardiogram Cardiology follow-up encounter Syncope (10/2020) History of CVA (cerebrovascular accident) Traumatic subarachnoid hemorrhage (10/2020) Hyperlipidemia Claudication Barretts esophagus TIA (transient ischemic attack) Atherosclerotic heart disease of tetlin coronary artery without angina pectoris Left bundle branch block Carotid bruit Left carotid artery stenosis Angiopathy, peripheral Home Medications ?Medication ?Instructions ?Recorded ?Last Taken ?Type aspirin 81 mg tablet,delayed 81 mg PO QDAY SUPPLEMENT 11/04/17 02/26/24 History release (Adult Low Dose Aspirin) cholecalciferol (vitamin D3) 25 1,000 unit PO QDAY SUPPLEMENT 03/11/23 02/26/24 History mcg (1,000 unit) capsule atorvastatin 20 mg tablet 20 mg PO QPM H;D 03/27/24 Unknown History amlodipine 5 mg tablet 5 mg PO DAILY BP #90 TABLETS 06/12/24 Unknown Rx metoprolol tartrate 25 mg tablet 25 mg PO BID #180 tabs 06/12/24 Unknown Rx apixaban 5 mg tablet (Eliquis) 2.5 mg PO BID blood thinner 06/28/24 Unknown History amiodarone 200 mg tablet 200 mg PO DAILY #90 tabs 07/03/24 Unknown Rx torsemide 10 mg tablet 10 mg PO .COMPLEX #60 tabs 07/03/24 Unknown Rx omeprazole 20 mg capsule,delayed 20 mg PO BID GERD #180 caps 07/04/24 Unknown Rx release ferrous sulfate 325 mg (65 mg 325 mg PO DAILY anemia 07/16/24 Unknown History iron) tablet (Feosol) Allergy/AdvReac Type Severity Reaction Status Date / Time Iodinated Contrast Media AdvReac Severe CKD Verified 06/28/24 00:24 (Iodinated Contrast- Oral and IV Dye) Family History Mother CAD (coronary artery disease) Diabetes Myocardial infarction Brother CAD (coronary artery disease) Hx of CABG Brother CAD (coronary artery disease) Surgical History History of esophagogastroduodenoscopy (EGD) Hx of right cataract extraction Hx of left cataract extraction Hx of colonoscopy Hx of foot surgery History of left-sided carotid endarterectomy (2000) 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) Social History Smoking Status: Former smoker alcohol intake: current details: Rare substance use type: does not use caffeine: Yes Type: coffee Number of servings: 3 Vital Signs Vital Signs Vital Signs: 07/16/24 00:28 07/16/24 00:34 07/16/24 00:37 Temperature 98.1 F Temperature Source Oral Pulse Rate 73 Pulse Rate [2] Respiratory Rate 20 H Respiratory Rate [2] Respiratory Effort Short of Breath Short of Breath Respiratory Depth Shallow Respiratory Pattern Blood Pressure 127/100 H Blood Pressure Mean 109 Pulse Ox 50 Oxygen Delivery Method Nasal Cannula Oxygen Flow Rate (L/min) 4 Fraction of Inspired Oxygen (FIO2) 07/16/24 00:45 07/16/24 00:55 07/16/24 01:09 Temperature Temperature Source Pulse Rate 65 85 80 Pulse Rate [2] Respiratory Rate 28 H 24 H 17 Respiratory Rate [2] Respiratory Effort Respiratory Depth Respiratory Pattern Normal Blood Pressure 66/34 L 133/51 H Blood Pressure Mean 44 78 Pulse Ox 58 95 97 Oxygen Delivery Method Oxygen Flow Rate (L/min) Fraction of Inspired Oxygen (FIO2) 100 07/16/24 01:10 07/16/24 01:25 07/16/24 01:37 Temperature Temperature Source Pulse Rate 80 85 82 Pulse Rate [2] Respiratory Rate 22 H 25 H 28 H Respiratory Rate [2] Respiratory Effort Respiratory Depth Respiratory Pattern Blood Pressure 93/77 66/34 L 133/108 H Blood Pressure Mean 82 44 116 Pulse Ox 49 Oxygen Delivery Method Mechanical Ventilator Mechanical Ventilator Oxygen Flow Rate (L/min) Fraction of Inspired Oxygen (FIO2) 07/16/24 01:39 07/16/24 01:41 07/16/24 01:45 Temperature Temperature Source Pulse Rate 81 77 Pulse Rate [2] 82 Respiratory Rate 33 H 17 Respiratory Rate [2] 21 H Respiratory Effort Respiratory Depth Respiratory Pattern Blood Pressure 40/15 L Blood Pressure Mean 25 Pulse Ox Oxygen Delivery Method Oxygen Flow Rate (L/min) Fraction of Inspired Oxygen (FIO2) 07/16/24 01:48 07/16/24 01:49 07/16/24 01:50 Temperature Temperature Source Pulse Rate 75 115 H 78 Pulse Rate [2] Respiratory Rate 21 H 22 H 28 H Respiratory Rate [2] Respiratory Effort Respiratory Depth Respiratory Pattern Blood Pressure 139/11 H 114/21 L Blood Pressure Mean 40 45 Pulse Ox 81 Oxygen Delivery Method Oxygen Flow Rate (L/min) Fraction of Inspired Oxygen (FIO2) 07/16/24 01:52 07/16/24 01:56 07/16/24 02:00 Temperature Temperature Source Pulse Rate 92 85 82 Pulse Rate [2] Respiratory Rate 36 H 18 20 H Respiratory Rate [2] Respiratory Effort Respiratory Depth Respiratory Pattern Blood Pressure 114/21 L 142/36 H 171/83 H Blood Pressure Mean 52 57 102 Pulse Ox 88 81 Oxygen Delivery Method Mechanical Ventilator Mechanical Ventilator Oxygen Flow Rate (L/min) Fraction of Inspired Oxygen (FIO2) 100 07/16/24 02:10 Temperature 98.1 F Temperature Source Pulse Rate 82 Pulse Rate [2] Respiratory Rate 16 Respiratory Rate [2] Respiratory Effort Respiratory Depth Respiratory Pattern Blood Pressure 170/82 H Blood Pressure Mean 111 Pulse Ox 82 Oxygen Delivery Method Oxygen Flow Rate (L/min) Fraction of Inspired Oxygen (FIO2) Weight Weight: 133 lb 2.547 oz Body Mass Index (BMI) 21.4 Physical Exam Const Constitutional Narrative: Patient is intubated and some needed on mechanical ventilator HEENT normocephalic, head/scalp atraumatic and hearing grossly normal bilaterally HEENT Narrative: ET tube in place. Eyes PERRL Neck no lymphadenopathy and supple Resp normal respiratory effort, no retractions, no use of accessory muscles and clear to auscultation bilaterally Cardio regular rate and regular rhythm Cardio Narrative: Paced rhythm on monitor. GI normal to inspection, nondistended, normoactive bowel sounds, soft to palpation, non-tender and non-distended Extremity normal to inspection, full ROM and no clubbing, cyanosis or edema Skin Skin Narrative: Patient has no evidence of rash, abscess or jaundice. Neuro Neuro Narrative: Patient is intubated and sedated on mechanical ventilator. Psych Psych Narrative: Patient is intubated and sedated on mechanical ventilator. Results Medical Records Data Attestation: I reviewed the patient's medical records Lab / Micro Data Attestation: I reviewed the patient's lab results. 07/16/24 03:45 07/16/24 03:45 Labs: Laboratory Results - last 24 hr 07/16/24 00:50: WBC 10.2, RBC 3.01 L, Hgb 9.2 L, Hct 29.5 L, MCV 98.0 H, MCH 30.6, MCHC 31.2 L, RDW Std Deviation 54.4 H, RDW Coeff of [place] 15.4 H, Plt Count 292, MPV 11.4, Immature Gran % (Auto) 0.700, Neut % (Auto) 77.7 H, Lymph % (Auto) 9.6 L, [place] % (Auto) 10.4 H, Eos % (Auto) 1.1, Baso % (Auto) 0.5, Absolute Neuts (auto) 7.9 H, Absolute Lymphs (auto) 0.98, Nucleated RBC % 0, PT 17.7 H, INR 1.5, APTT 26.5, Sodium 136, Potassium 5.1, Chloride 99, Carbon Dioxide 26.0, Anion Gap 11, BUN 82 H, Creatinine 3.45 H, Estim Creat Clear Calc 12.64, Est GFR (MDRD) Af Amer 22 L, Est GFR (MDRD) Non-Af 18 L, BUN/Creatinine Ratio 23.8 H, Glucose 216 H, Calcium 9.3, Magnesium 2.6 Imaging Radiology Impression Chest X-Ray 07/16/24 01:20 IMPRESSION: Satisfactory ET tube position. Mild bilateral airspace disease with small pleural effusions increased compared to prior. Electronically Signed: Nini Santiago MD at 1:43 EST , Assessment & Plan Assessment/Plan (1) Cardiopulmonary arrest with successful resuscitation: (2) Complete heart block by electrocardiogram: (3) Septic shock: (4) Aspiration into airway: QUALIFIERS: Encounter type: initial encounter Qualified Code(s): T17.908A - Unspecified foreign body in respiratory tract, part unspecified causing other injury, initial encounter (5) CHF (congestive heart failure): QUALIFIERS: Heart failure chronicity: acute on chronic Heart failure type: combined systolic and diastolic Qualified Code(s): I50.43 - Acute on chronic combined systolic (congestive) and diastolic (congestive) heart failure (6) Atherosclerotic heart disease of tetlin coronary artery without angina pectoris: QUALIFIERS: [place] vs. transplanted heart: tetlin heart Qualified Code(s): I25.10 - Atherosclerotic heart disease of tetlin coronary artery without angina pectoris (7) Paroxysmal atrial fibrillation: (8) CHADWICK (acute kidney injury): PLAN: Plan 1. Complete Heart Block; s/p CODE BLUE in ER with 3 minutes of ACLS protocol including intubation and subsequent emergent transvenous pacemaker placement with initial white blood cell count of 10.2 K rising to 18K with Left-shift of 4.6% with hypothermia of 91.6 ?F consistent with Sepsis with severe hypotension consistent with Septic Shock due to suspected Aspiration with no other obvious source of infection - Admit to ICU. Start empiric IV vancomycin IV Zosyn and await culture and sensitivity data. Patient was ordered a limited fluid bolus due to his history of CHF and recent CHB. Patient was started on Levophed drip to keep MAP > 65 mmHg by tele ICU bass guitar teacher. Continue current ventilator settings and fentanyl and Versed drips for sedation. Right IJ CVC was placed by general surgeon on-call whose help is very greatly appreciated! Finally, we will consult bass guitar teacher on-call to see patient on rounds in the a.m. for further recommendations regarding sepsis and ventilator management without appreciated in advance. 2. CAD; s/p CABG x 5 (2007) on BASA complicating #1 - Hold BASA and continue to monitor. 3. History of PAF; on amiodarone and apixaban compounding #1 & #2 - Recommendation from cardiology is to hold all prior medications till further notice. 4. History of chronic systolic CHF; with LVEF ~35% adding to the medical complexity of #1 - #3 - Check echocardiogram to reevaluate LVEF. 5. CKD; stage IV with suspected superimposed CHADWICK with serum creatinine of 3.45 mg/dL present on admission (up from his baseline of 2.62 mg/dL on July 10, 2024) - Gently volume resuscitate and recheck renal indices in AM to follow trend. 6. Essential hypertension; on amlodipine, metoprolol and torsemide - Hold all antihypertensives until further notice. 7. Hyperlipidemia; on atorvastatin - Hold statin until patient stabilizes. Check Lipid Profile. 8. History of TIA/CVA (2020) - Noted. 9. History of traumatic SDH (2020) - Noted. 10. History of syncope (2020) - Noted. 11. History of subdural hygroma - Noted. 12. History of Left carotid stenosis; s/p CEA - Noted. 13. PVD; with history of claudication - Stable. 14. GERD with history of Bales's esophagus; on omeprazole - We will continue PPI IV. 15. History of esophageal stricture; with chronic dysphagia - Noted. 16. History of hiatal hernia - Noted. 17. History of allergy to IV contrast dye - Noted. 18. DVT prophylaxis - SCD's at this time only in light of hemoptysis after CODE BLUE. Total time: Approximately (but not less than) 75 minutes. Sepsis Attestation Sepsis Alert: Yes Sepsis Attestation: Agree w/Sepsis Date exam was performed: 07/16/24 Time exam was performed: 05:00 Possible Source of Sepsis: Pulmonary Sepsis Organ Dysfunction Criteria Present: SBP < 90 mmHg or MAP < 65 mmHg, Acute Respiratory Failure (New need for BiPAP/CPAP or MV), Creatinine > 2.0 mg/dL and New/Unexplained change in mental status Fluid Resuscitation Fluid resuscitation indicated?: Yes Fluid Resuscitation ordered: Lesser volume fluid bolus ordered Amount of fluid ordered: 2 Reason for lesser fluid bolus:: Concern for fluid overload Sepsis Note Date exam was performed: 07/16/24 Time exam was performed: 06:30 Sepsis Attestation: Sepsis re-evaluation was performed Response to fluids: Non Fluid responsive hypotension and Vasopressors started Charges/Coding Visit Charges Inpatient E&M: 23141 Init Hosp L3
--- NOTE | 2024-07-16 03:40 | ECHOCS_ITS ---
Reason For Study: CHF Procedure This was a 2D Doppler, Color Flow transthoracic echocardiogram. The study was technically difficult. Exam performed portable in ICU/CCU. Left Ventricle Normal LV size. The left ventricular ejection fraction is 50 %. No regional wall motion abnormalities noted. Right Ventricle Normal RV size. Normal systolic function. Mitral Valve There is moderate mitral annular calcification. Aortic Valve Trisinus/trileaflet aortic valve. Mild focal aortic valve calcification. Mild (1+) aortic valve insufficiency. Pulmonic Valve Normal pulmonic valve. Great Vessels Calcified aortic root. The pulmonary artery is normal size. Normal inferior vena cava. Pacer in IVC. Pericardium/Pleural No pericardial effusion. Medication Diluted definity 0.5ml given slow IV push to enhance endocardial definition. MMode/2D Measurements & Calculations LVIDd: 4.8 cm IVSd: 1.0 cm Ao root diam: 2.9 cm LVIDs: 3.6 cm LVPWd: 0.99 cm RVDd: 2.9 cm FS: 24.3 % LAV(MOD-bp): 34.5 ml LVAd ap4: 32.4 cm2 LVAd ap2: 32.6 cm2 LAV(MOD-bp) Indexed: 17.5 ml/m2 LVLd ap4: 7.8 cm LVLd ap2: 7.6 cm LAV(MOD-sp2): 35.4 ml EDV(MOD-sp4): 111.1 ml EDV(MOD-sp2): 117.1 ml LAV(MOD-sp4): 33.2 ml EDV(sp4-el): 114.7 ml EDV(sp2-el): 118.0 ml LVAs ap4: 24.5 cm2 LVAs ap2: 24.6 cm2 LVLs ap4: 7.3 cm LVLs ap2: 7.5 cm ESV(MOD-sp4): 66.4 ml ESV(MOD-sp2): 65.7 ml ESV(sp4-el): 69.2 ml ESV(sp2-el): 68.5 ml EF(MOD-sp4): 40.2 % EF(MOD-sp2): 43.9 % EF(sp4-el): 39.7 % SV(MOD-sp4): 44.7 ml SV(MOD-sp2): 51.3 ml SV(sp4-el): 45.5 ml SI(MOD-sp4): 22.6 ml/m2 SI(MOD-sp2): 26.0 ml/m2 LA A4 area: 14.2 cm2 LA dimension(2D): 3.5 cm RA A4 area: 11.5 cm2 Time Measurements MV dec time: 0.19 sec Doppler Measurements & Calculations MV E max deejay: 94.5 cm/sec Lat Peak E' Deejay: 5.9 cm/sec Med Peak E' Deejay: 5.0 cm/sec E/E' lat: 16.1 E/E' med: 18.9 Ao V2 max: 151.3 cm/sec AI max deejay: 330.8 cm/sec MV dec slope: 490.1 cm/sec2 Ao max P.2 mmHg AI max P.8 mmHg AI dec slope: 206.2 cm/sec2 AI P1/2t: 469.8 msec LV V1 max: 89.6 cm/sec PA V2 max: 73.8 cm/sec LV V1 max P.2 mmHg ECHO/Echo Complete W/ Contrast Interpretation Summary Normal LV size. The left ventricular ejection fraction is 50 %. Mild focal aortic valve calcification. Mild (1+) aortic valve insufficiency. Calcified aortic root. Ordering Physician: Kalpesh Suggs Referring Physician: Keith Bagley Performed By: Liz Sung RDCS
[2024-07-16 03:52] LABS: Allen Test Positive; Base Excess -9 mmol/L (-2 to +2); Blood Gas Specimen Type ART; Mode AC; O2 Delivery Device Adult Vent; PEEP 5; PO2 66 mmHG (75-100); RR 16; SITE R Radial; SO2 88 % (95-99); Total Carbon Dioxide 20 mmol/L; pCO2 45.9 mmHg (35-45); pH 7.23 (7.35-7.45)
--- NOTE | 2024-07-16 04:00 | NURSING ---
Pt arrived from cath laboratory technician with versed running at 1 mg/hr and fentanyl running at 50 mcg/hr. Dopamine @ 10.
[2024-07-16 04:07] LABS: Absolute Lymphocyte Count 0.71 X10^3/uL (0.83-4.51); Absolute Neutrophil Count 15.2 X10^3/uL (2.0-7.7); Basophil# 0.06 X10^3/uL; Basophil% 0.3 % (0-1); Eosinophil# 0.03 X10^3/uL; Eosinophils% 0.2 % (0-5); Hematocrit 25.7 % (40-54); Hemoglobin 7.8 g/dL (13.0-16.5); Lymphocyte # 0.71 X10^3/ul (0.83-4.51); Lymphocyte % 3.9 % (19-41); Mean Corp Hgb Conc 30.4 g/dL (32-36); Mean Corpuscular Hgb 30.4 pg (27.0-32.0); Mean Platelet Vol. 10.4 fl (6.2-12.0); Monocyte# 1.14 X10^3/uL; Monocyte% 6.3 % (0-10); NRBC Flagged by Analyzer 0 % (0-5); Neutrophil # 15.22 X10^3/uL (2.7-7.7); Neutrophil % 84.7 % (47-70); Platelet Count 306 K/mm3 (150-450); RBC Distribution Width CV 15.1 % (11.6-14.6); RBC Distribution Width SD 55.5 fl (35.1-43.9); Red Blood Count 2.57 M/mm3 (4.6-6.2)
[2024-07-16 04:35] LABS: ALB/GLOB Ratio 0.7 RATIO (0.9-2.4); AST(SGOT) 1084 U/L (15-37); Alanine Aminotransfer ALT/SGPT 980 U/L (16-61); Albumin, Serum 2.6 g/dL (3.2-5.0); Alkaline Phosphatase 282 U/L (45-117); Anion Gap 13 (5-15); BUN 80 mg/dL (7-18); BUN/Creat Ratio 24.2 RATIO (10-20); Calcium,Total 7.7 mg/dL (8.5-10.1); Chloride 109 mmol/L (98-107); EST Glomerular Filtration Rate 19 mL/min (>60); Est Glom Filt Rate - Afr Amer 23 mL/min (>60); Estimated Creatinine Clearance 13.83 ml/min; Globulin 3.5 g/dL (2.2-4.2); Glucose 178 mg/dL (74-106); Magnesium 2.2 mg/dL (1.6-2.6); Phosphorus 6.5 mg/dL (2.5-4.9); Potassium 4.6 mmol/L (3.5-5.1); Protein, Total 6.1 g/dL (6.4-8.2); Sodium Level 141 mmol/L (136-145)
[2024-07-16 04:48] LABS: Cholesterol 99 mg/dL (200); High Density Lipoprotein 50 mg/dL; Triglycerides 38 mg/dL; Very Low Density Lipoprotein 8 mg/dL (5-40)
--- NOTE | 2024-07-16 04:58 | CON.PCM.CC_ITS ---
HPI Consult Data Date of Consult: 07/16/24 HPI Narrative Reason for Consultation: Actute resp failure HPI Narrative: FEI ROGERS, is a 89 y/o WM with a hx of who presented to the ER here overnight with SOB. He was found to be in complete heart block. He was intubated after he lost consciousness. He was initially externally pacer and then taken to the slabbing machine operator for temporary transvenous pacing. He was brought to the ICU afterwards and I was consulted. On interview, the patient was intubated and sedated, He was on A/C: Tv: 450, RR: 16, PEEP:5, FiO2: 100%. He was on dopamine (30). He had no other fluid running. His HR was in the 70s with a SBP of 80-90. COUNT INCLUDES THE [facility] Medical History Paroxysmal atrial fibrillation HTN (hypertension), benign Coronary artery disease Chronic kidney disease 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, <= 40%) Esophageal obstruction Hiatal hernia Kidney disease TIA (transient ischemic attack) Hypertension Wears hearing aid Wears glasses Wears partial dentures Wears dentures History of renal disease High cholesterol Easy bruising Injury of head and neck Difficulty swallowing History of hiatal hernia Gastric reflux Former smoker Leg cramps History of pain when walking History of edema History of echocardiogram Cardiology follow-up encounter Syncope (10/2020) History of CVA (cerebrovascular accident) Traumatic subarachnoid hemorrhage (10/2020) Hyperlipidemia Claudication Barretts esophagus TIA (transient ischemic attack) Atherosclerotic heart disease of [place] coronary artery without angina pectoris Left bundle branch block Carotid bruit Left carotid artery stenosis Angiopathy, peripheral Home Medications ?Medication ?Instructions ?Recorded ?Last Taken ?Type aspirin 81 mg tablet,delayed 81 mg PO QDAY SUPPLEMENT 11/04/17 02/26/24 History release (Adult Low Dose Aspirin) cholecalciferol (vitamin D3) 25 1,000 unit PO QDAY SUPPLEMENT 03/11/23 02/26/24 History mcg (1,000 unit) capsule atorvastatin 20 mg tablet 20 mg PO QPM H;D 03/27/24 Unknown History amlodipine 5 mg tablet 5 mg PO DAILY BP #90 TABLETS 06/12/24 Unknown Rx metoprolol tartrate 25 mg tablet 25 mg PO BID #180 tabs 06/12/24 Unknown Rx apixaban 5 mg tablet (Eliquis) 2.5 mg PO BID blood thinner 06/28/24 Unknown History amiodarone 200 mg tablet 200 mg PO DAILY #90 tabs 07/03/24 Unknown Rx torsemide 10 mg tablet 10 mg PO .COMPLEX #60 tabs 07/03/24 Unknown Rx omeprazole 20 mg capsule,delayed 20 mg PO BID GERD #180 caps 07/04/24 Unknown Rx release ferrous sulfate 325 mg (65 mg 325 mg PO DAILY anemia 07/16/24 Unknown History iron) tablet (Feosol) Allergy/AdvReac Type Severity Reaction Status Date / Time Iodinated Contrast Media AdvReac Severe CKD Verified 06/28/24 00:24 (Iodinated Contrast- Oral and IV Dye) Family History Mother CAD (coronary artery disease) Diabetes Myocardial infarction Brother CAD (coronary artery disease) Hx of CABG Brother CAD (coronary artery disease) Surgical History History of esophagogastroduodenoscopy (EGD) Hx of right cataract extraction Hx of left cataract extraction Hx of colonoscopy Hx of foot surgery History of left-sided carotid endarterectomy (2000) 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 Objective Data Objective Data Vital Signs: Vital Signs Last response 3 Temperature 33.1 C L 07/16/24 04:15 Temperature Source Core 07/16/24 04:15 Pulse Rate 82 07/16/24 04:30 Respiratory Rate 22 H 07/16/24 04:30 Respiratory Effort Short of Breath 07/16/24 00:37 Respiratory Depth Shallow 07/16/24 00:37 Respiratory Pattern Normal 07/16/24 03:35 Blood Pressure 95/42 L 07/16/24 04:30 Blood Pressure Mean 59 07/16/24 04:30 Blood Pressure Source Monitor 07/16/24 04:30 Pulse Ox 74 07/16/24 03:35 Oxygen Delivery Method Mechanical Ventilator 07/16/24 02:00 Oxygen Flow Rate (L/min) 4 07/16/24 00:28 Fraction of Inspired Oxygen (FIO2) 100 07/16/24 03:35 I&O: I&O Last 24 Hours 3 07/15/24 07/15/24 07/16/24 11:59 23:59 11:59 Intake Total 2259.57 / 2259.57 Balance 2259.57 / 2259.57 I&O: Total Stay 3 07/16/24 00:27 thru 07/16/24 04:38 Intake Total 2259.57 Balance 2259.57 Lines:: PIV Ventilator:: A/C: Tv: 450, RR: 16, PEEP:: 5, FiO2: 100%. Current Meds Ordered / Administered: Current meds ordered / Administered 3 Generic Name Dose Route Start Last Admin Trade Name Freq PRN Reason Stop Dose Admin Fentanyl 100 mls @ 2.5 mls/hr 07/16/24 00:50 07/16/24 04:00 CONT INF 50 mcg/hr UD HYACINTH 5 mls/hr Titration Protocol 25 MCG/HR Midazolam HCl 50 mg/ Sodium 100 mls @ 2 mls/hr 07/16/24 00:50 07/16/24 04:30 Chloride CONT INF 0 mg/hr .Q50H HYACINTH 0 mls/hr Titration Protocol 1 MG/HR Dopamine HCl/Dextrose 800 mg in 250 mls @ 5.663 mls/hr 07/16/24 01:45 07/16/24 04:30 CONT INF 30 mcg/kg/min .Q44H9M HYACINTH 34 mls/hr Titration Protocol 5 MCG/KG/MIN Sodium Chloride 1,000 mls @ 70 mls/hr 07/16/24 03:20 IV 07/16/24 17:37 .[id number] HYACINTH Protocol Pantoprazole Sodium 40 mg/ 110 mls @ 330 mls/hr 07/16/24 10:00 Sodium Chloride IV Q24 HYACINTH Sodium Chloride 100 mls @ 15 mls/hr 07/16/24 04:16 IV .Q6H40M PRN Saline Flush Sodium Chloride 100 mls @ 15 mls/hr 07/16/24 04:16 IV .Q6H40M PRN Additional IVPB Infusion Norepinephrine Bitartrate 8 mg 250 mls @ 9.375 mls/hr 07/16/24 04:50 / Sodium Chloride CONT INF .[id number] HYACINTH Protocol 5 MCG/MIN Piperacillin Sod/Tazobactam 50 mls @ 12.5 mls/hr 07/16/24 06:00 Sod 3.375 gm/ Sodium Chloride IV Q8 HYACINTH Vancomycin IV-PHARMACY TO DOSE 500 mls @ 250 mls/hr 07/16/24 04:49 1 each/ Sodium Chloride IV X1 PRN Rx to Dose Protocol Ondansetron HCl 4 mg 07/16/24 03:28 Ondansetron 4 Mg/2 Ml Vial IV Q8H PRN PRN NAUSEA/VOMITING Sodium Chloride 10 - 40 ml 07/16/24 04:16 0.9% Saline Lock 10 Ml Syringe IV UD PRN SALINE FLUSH Physical Exam Const Constitutional Narrative: Sedated, calm. General Appearance: comfortable and patient mechanically ventilated HEENT normocephalic, head/scalp atraumatic, hearing grossly normal bilaterally, external ears normal, EAC's normal, TM's normal bilaterally, external nose normal, nasal mucous membranes and turbinates normal, moist oral mucous membranes, oropharynx normal, dentition normal and gingiva normal Eyes PERRL, EOMs intact bilaterally, conjunctivae normal, no scleral icterus, no papilledema, normal visual gomez by confrontation and fundi normal bilaterally Chest inspection of chest normal, palpation of chest normal, inspection of breasts normal and palpation of breasts normal Cardio Cardio Narrative: RRR with pacer GI normal to inspection, nondistended, normoactive bowel sounds, soft to palpation, non-tender, non-distended, hepatosplenomegaly, no masses and no bruits Extremity normal to inspection, full ROM, normal capillary refill, no joint enlargement, no clubbing, cyanosis or edema, no calf tenderness and no pedal edema Lab / Micro Data 07/16/24 03:45 07/16/24 03:45 Labs: Laboratory Results - last 24 hr 07/16/24 00:50: WBC 10.2, RBC 3.01 L, Hgb 9.2 L, Hct 29.5 L, MCV 98.0 H, MCH 30.6, MCHC 31.2 L, RDW Std Deviation 54.4 H, RDW Coeff of [place] 15.4 H, Plt Count 292, MPV 11.4, Immature Gran % (Auto) 0.700, Neut % (Auto) 77.7 H, Lymph % (Auto) 9.6 L, Castro % (Auto) 10.4 H, Eos % (Auto) 1.1, Baso % (Auto) 0.5, A bsolute Neuts (auto) 7.9 H, Absolute Lymphs (auto) 0.98, Nucleated RBC % 0, PT 17.7 H, INR 1.5, APTT 26.5, Sodium 136, Potassium 5.1, Chloride 99, Carbon Dioxide 26.0, Anion Gap 11, BUN 82 H, Creatinine 3.45 H, Estim Creat Clear Calc 12.64, Est GFR (MDRD) Af Amer 22 L, Est GFR (MDRD) Non-Af 18 L, BUN/Creatinine Ratio 23.8 H, Glucose 216 H, Calcium 9.3, Magnesium 2.6 07/16/24 03:45: WBC 18.0 H, RBC 2.57 L, Hgb 7.8 L, Hct 25.7 L, MCV 100.0 H, MCH 30.4, MCHC 30.4 L, RDW Std Deviation 55.5 H, RDW Coeff of [place] 15.1 H, Plt Count 306, MPV 10.4, Immature Gran % (Auto) 4.600 H, Neut % (Auto) 84.7 H, Lymph % (Auto) 3.9 L, Castro % (Auto) 6.3, Eos % (Auto) 0.2, Baso % (Auto) 0.3, Absolute Neuts (auto) 15.2 H, Absolute Lymphs (auto) 0.71 L, Nucleated RBC % 0, Sodium 141, Potassium 4.6, Chloride 109 H, Carbon Dioxide 19.0 L, Anion Gap 13, BUN 80 H, Creatinine 3.30 H, Estim Creat Clear Calc 13.83, Est GFR (MDRD) Af Amer 23 L, Est GFR (MDRD) Non-Af 19 L, BUN/Creatinine Ratio 24.2 H, Glucose 178 H, Calcium 7.7 L, Phosphorus 6.5 H, Magnesium 2.2, Total Bilirubin 1.10 H, AST 1084 H, ALT 980 H, Alkaline Phosphatase 282 H, Total Protein 6.1 L, Albumin 2.6 L, Globulin 3.5, Albumin/Globulin Ratio 0.7 L, Triglycerides 38, Cholesterol 99, LDL Cholesterol 41, VLDL Cholesterol 8, HDL Cholesterol 50, TSH 8.390 H ABG Data ABG results: ABG 07/16/24 03:46 Specimen Type ART Sample Site R Radial pH 7.23 L Bicarbonate Actual 19.0 L Total CO2 20 Base Excess -9 L O2 Saturation 88 L O2 % 100.0 ABG pCO2 45.9 H ABG pO2 66 L Giovanni Test Positive Respiration Rate 16 O2 Delivery Device Adult Vent Vent Mode AC Tidal Volume 450.0 POC PEEP 5 Imaging Radiology Impression Chest X-Ray 07/16/24 01:20 IMPRESSION: Satisfactory ET tube position. Mild bilateral airspace disease with small pleural effusions increased compared to prior. Electronically Signed: Nini Santiago MD at 1:43 EST , Assessment and Plan . Assessment and plan: 1. Acute hypoxic resp failure 2. Cardiac arrest. 3. CAD 4. CHF 5. PAD 6. A-fib 7. HTN 8. CKD 9. GERD -Increase RR from 18 to 22. Increase PEEP from 5 to 10. Continue remainder of current vent settings. -Check ABG in 1 hour. -Continue Vanc and Zosyn. -Check sputum cx and blood cx. -Continue pacing per cards. -Wean dopamine for HR > 70. Decrease dose to 10 after central line is placed. -Start levophed. Goal MASP > 65. -Start dopamine at 3 (fixed dose) -Add Vaspressin if needed. -Trend troponin. -Check CMP, CBC, Mg and BNP in the AM. -NPO. Start IV qday PPI and subq BID heparin. Critical Care Time: 60 The entirety of this encounter was done via Telemedicine
[2024-07-16 05:08] LABS: Troponin-I HS 31 pg/mL (3.0-78.0)
[2024-07-16] MEDS: Norepinephrine 8 MG in 0.9% Normal Saline (250mL Bag) 242 ML 9.4 MG CONT INF (05:10)
[2024-07-16] MEDS: 0.9% Normal Saline (1000mL) 1,000 ML 70 ML IV (05:29)
[2024-07-16 05:31] LABS: Mucous, Urine 0 SEEN /hpf (<or=2+); Squamous Epithelial Cells - UA 0 SEEN /hpf (0-5); White Blood Cells 0 SEEN /hpf (0-5)
[2024-07-16 05:32] LABS: Color, Urine Yellow (Yellow); Glucose, Dipstick Normal (Normal); Ketone-Dipstick Negative (Negative); Leukocyte Esterase-Dipstick Negative /ul (Negative); Nitrite-Dipstick Negative (Negative); Occult Blood-Urine 50 /ul (Negative); Protein-Dipstick 100 mg/dl (Negative); Urine Bilirubin Dipstick Negative (Negative); Urine Clarity Clear (Clear); Urine Urobilinogen Normal (Normal)
[2024-07-16 05:52] LABS: Bacteria RARE /hpf (None Seen); Red Blood Cells-Urine 0-5 SEEN /hpf (0-5)
--- NOTE | 2024-07-16 06:05 | RAD_ITS ---
INDICATION: central line placement EXAMINATION/TECHNIQUE: X-RAY - XR Chest 1 View AP portable. 5:58 AM COMPARISON: Prior study dated: 07/16/2024 at 1:09 AM FINDINGS: LINES/DEVICES: Tip of the endotracheal tube is 2 cm above the jessica. NG tube tip in the stomach. Central venous catheter from right right IJ approach tip in the region of the SVC/right atrial junction. Ascending catheter presumed transvenous pacemaker from ascending femoral approach, with tip in the region of the right ventricle. Opaque or tubular object overlying the left upper abdomen is unchanged uncertain position. LUNGS: Diffuse alveolar infiltrates throughout both lungs increased compared to earlier. Small bilateral pleural effusions, increased. No pneumothorax. MEDIASTINUM: Unremarkable. CARDIAC SILHOUETTE: Mildly enlarged. Stable size. Dense perivalvular calcifications. Sternal wires. BONES AND SOFT TISSUES: No acute abnormalities. RAD/CXR for Line Placement IMPRESSION: New central line as described. No pneumothorax. Increased bilateral airspace disease and small pleural effusions. Electronically Signed: Nini Santiago MD at 8:08 EST ,
--- NOTE | 2024-07-16 06:15 | PCM.OPRPT ---
Procedures Hospitalists Procedures: 07297 Insert Non-tunnel CV Cath Operative Report (Standard) Operative Information Date of Procedure: 07/16/24 Pre-Operative Diagnosis: Septic shock following cardiopulmonary arrest with return of spontaneous circulation requiring vasopressor support Post-Operative Diagnosis: Same Surgery/Procedure Performed: Ultrasound-guided insertion of right internal jugular triple-lumen CVC catheter otolaryngology surgeon: No Type of Anesthesia: Local (3 mL 1% lidocaine) Procedure Start Time: 05:30 Procedure Stop Time: 05:50 Select all DRAINS/GRAFTS/IMPLANTS that apply: Implanted device Implanted device details: 16 Syrian triple-lumen CVC catheter Estimated Blood Loss: 30 Specimen collected: No Description of surgery: Procedure name: Insertion of 7 Syrian, triple-lumen central venous catheter (16 cm length) Procedure detail: After obtaining consent from patient's spouse, patient was positioned in Trendelenburg to facilitate filling of the central veins of the neck. The head was positioned to the left to allow access to the right neck. The right internal jugular vein was localized using bedside ultrasound. It appeared to be widely patent with good color flow and Doppler. The superficial tissues of the neck were then anesthetized with a local block using 4 mL 1% Xylocaine. Under direct ultrasound guidance the vein was accessed with return of thin dark red blood. Using a Seldinger technique a guidewire was placed without difficulty. The guidewire tract was then opened at the skin with an 11 blade and dilated dilated. Then the central venous catheter was inserted into the vein. All ports aspirated and flushed ease. The catheter was then sewn in using 0 silk in 2-point fixation. Insertion site was cleaned and a pressure dressing was created beneath a Tegaderm to stymied some of the oozing and maintain sterility at the insertion site. A post procedure chest x-ray was obtained to verify the position of the catheter. Complications: None EBL: 30 mL Surgical Findings: ? Somewhat diminutive diameter of right internal jugular vein but with good flow ? Exceptionally thin blood with brisk return upon catheter insertion and during brief interlude following dilation leading to some postprocedural oozing Complications Complications: No
[2024-07-16 06:19] LABS: Allen Test Positive; Base Excess -12 mmol/L (-2 to +2); Bicarbonate 15.2 mmol/L (22-26); Blood Gas Specimen Type ART; Mode AC; O2 Delivery Device Adult Vent; PEEP 10; PO2 70 mmHG (75-100); RR 22; SITE Art Line; SO2 92 % (95-99); Total Carbon Dioxide 16 mmol/L; pCO2 32.6 mmHg (35-45); pH 7.28 (7.35-7.45)
[2024-07-16] MEDS: 0.9% Saline Lock 10 ML Syringe IV (06:20)
[2024-07-16] MEDS: Vancomycin HCl 1,500 MG in 0.9% Normal Saline (500mL Bag) 500 ML 250 MG IV (06:20)
[2024-07-16] MEDS: DOBUTamine IV 500 MG in Dextrose 5%-Water (250mL Bag) 210 ML 5.7 MG IV (06:45)
[2024-07-16 06:55] LABS: Lactic Acid 6.4 mmol/L (0.4-1.9)
[2024-07-16 06:57] LABS: ALB/GLOB Ratio 0.7 RATIO (0.9-2.4); AST(SGOT) 1136 U/L (15-37); Alanine Aminotransfer ALT/SGPT 948 U/L (16-61); Albumin, Serum 2.5 g/dL (3.2-5.0); Alkaline Phosphatase 268 U/L (45-117); Anion Gap 12 (5-15); BUN 79 mg/dL (7-18); BUN/Creat Ratio 23.4 RATIO (10-20); Calcium,Total 7.3 mg/dL (8.5-10.1); Chloride 110 mmol/L (98-107); Creatinine, Serum 3.37 mg/dL (0.70-1.30); EST Glomerular Filtration Rate 18 mL/min (>60); Est Glom Filt Rate - Afr Amer 22 mL/min (>60); Estimated Creatinine Clearance 13.54 ml/min; Free T4 1.67 ng/dL (0.76-1.46); Globulin 3.4 g/dL (2.2-4.2); Glucose 187 mg/dL (74-106); Magnesium 2.1 mg/dL (1.6-2.6); Potassium 4.4 mmol/L (3.5-5.1); Protein, Total 5.9 g/dL (6.4-8.2); Sodium Level 140 mmol/L (136-145); Troponin-I HS 73 pg/mL (3.0-78.0)
--- NOTE | 2024-07-16 06:57 | PN.HOSP_ITS ---
Reason for Visit Reason for Visit: Diagnoses Sepsis, unspecified organism (07/16/24) Atherosclerotic heart disease of [place] coronary artery without angina pectoris (07/16/24) Atrioventricular block, complete (07/16/24) Cardiac arrest, cause unspecified (07/16/24) Paroxysmal atrial fibrillation (07/16/24) Acute on chronic combined systolic (congestive) and diastolic (congestive) heart failure (07/16/24) Heart disease, unspecified (07/16/24) Acute kidney failure, unspecified (07/16/24) Severe sepsis with septic shock (07/16/24) Unspecified foreign body in respiratory tract, part unspecified causing other injury, initial encounter (07/16/24) Subjective Subjective Patient since presentation status post temporary pacemaking in place with additionally central line placed overnight secondary to needs for usage of femoral line for pacing in addition to continued usage of dopamine and unfortunately necessity to start also norepinephrine. Discussed patient status and precarious clinical stability with patient family and recommended that they remain near the hospital and advised his daughter to visit who lives out of state in a timeline manner. Patient without any evidence of fevers, chills, nausea, emesis, abdominal pain but sedated, very minimally arousable. Objective Data Objective Data Vital Signs: Vital Signs Temp Pulse Resp BP Pulse Ox O2 Del Method O2 Flow Rate 91.6 F L 82 22 H 95/40 L 74 Mechanical Ventilator 4 07/16/24 04:15 07/16/24 06:53 07/16/24 06:53 07/16/24 05:25 07/16/24 03:35 07/16/24 02:00 07/16/24 00:28 FiO2 100 07/16/24 06:53 Oxygen Flow Rate (L/min) 4 Oxygen Delivery Method Mechanical Ventilator Weight: 139 lb 5.314 oz Body Mass Index (BMI) 19.9 Intake & Output: Intake and Output for Last 24 Hours 07/14/24 07/15/24 07/16/24 23:59 23:59 23:59 Intake Total 3339.98 / 3339.98 Balance 3339.98 / 3339.98 Lab / Micro Data 07/16/24 03:45 07/16/24 06:22 Labs: Laboratory Results - last 24 hr 07/16/24 00:50: WBC 10.2, RBC 3.01 L, Hgb 9.2 L, Hct 29.5 L, MCV 98.0 H, MCH 30.6, MCHC 31.2 L, RDW Std Deviation 54.4 H, RDW Coeff of [place] 15.4 H, Plt Count 292, MPV 11.4, Immature Gran % (Auto) 0.700, Neut % (Auto) 77.7 H, Lymph % (Auto) 9.6 L, [place] % (Auto) 10.4 H, Eos % (Auto) 1.1, Baso % (Auto) 0.5, A bsolute Neuts (auto) 7.9 H, Absolute Lymphs (auto) 0.98, Nucleated RBC % 0, PT 17.7 H, INR 1.5, APTT 26.5, Sodium 136, Potassium 5.1, Chloride 99, Carbon Dioxide 26.0, Anion Gap 11, BUN 82 H, Creatinine 3.45 H, Estim Creat Clear Calc 12.64, Est GFR (MDRD) Af Amer 22 L, Est GFR (MDRD) Non-Af 18 L, BUN/Creatinine Ratio 23.8 H, Glucose 216 H, Calcium 9.3, Magnesium 2.6 07/16/24 03:45: WBC 18.0 H, RBC 2.57 L, Hgb 7.8 L, Hct 25.7 L, MCV 100.0 H, MCH 30.4, MCHC 30.4 L, RDW Std Deviation 55.5 H, RDW Coeff of [place] 15.1 H, Plt Count 306, MPV 10.4, Immature Gran % (Auto) 4.600 H, Neut % (Auto) 84.7 H, Lymph % (Auto) 3.9 L, [place] % (Auto) 6.3, Eos % (Auto) 0.2, Baso % (Auto) 0.3, Absolute Neuts (auto) 15.2 H, Absolute Lymphs (auto) 0.71 L, Nucleated RBC % 0, Sodium 141, Potassium 4.6, Chloride 109 H, Carbon Dioxide 19.0 L, Anion Gap 13, BUN 80 H, Creatinine 3.30 H, Estim Creat Clear Calc 13.83, Est GFR (MDRD) Af Amer 23 L, Est GFR (MDRD) Non-Af 19 L, BUN/Creatinine Ratio 24.2 H, Glucose 178 H, Calcium 7.7 L, Phosphorus 6.5 H, Magnesium 2.2, Total Bilirubin 1.10 H, AST 1084 H, ALT 980 H, Alkaline Phosphatase 282 H, Troponin I High Sens 31, Total Protein 6.1 L, Albumin 2.6 L, Globulin 3.5, Albumin/Globulin Ratio 0.7 L, Triglycerides 38, Cholesterol 99, LDL Cholesterol 41, VLDL Cholesterol 8, HDL Cholesterol 50, TSH 8.390 H 07/16/24 05:20: Urine Color Yellow, Urine Clarity Clear, Urine pH 6.0, Ur Specific [place] 1.020, Urine Protein 100 H, Urine Glucose (UA) Normal, Urine Ketones Negative, Urine Occult Blood 50 H, Urine Nitrite Negative, Urine Bilirubin Negative, Urine Urobilinogen Normal, Ur Leukocyte Esterase Negative, Urine RBC 0-5 SEEN, Urine WBC 0 SEEN, Ur Squamous Epith Cells 0 SEEN, Urine Bacteria RARE, Urine Mucus 0 SEEN 07/16/24 06:15: Lactic Acid 6.4 H* 07/16/24 06:22: Sodium 140, Potassium 4.4, Chloride 110 H, Carbon Dioxide 18.0 L , Anion Gap 12, BUN 79 H, Creatinine 3.37 H, Estim Creat Clear Calc 13.54, Est GFR (MDRD) Af Amer 22 L, Est GFR (MDRD) Non-Af 18 L, BUN/Creatinine Ratio 23.4 H , Glucose 187 H, Calcium 7.3 L, Magnesium 2.1, Total Bilirubin 1.30 H, AST 1136 H, ALT 948 H, Alkaline Phosphatase 268 H, Troponin I High Sens 73, Total Protein 5.9 L, Albumin 2.5 L, Globulin 3.4, Albumin/Globulin Ratio 0.7 L, Free T4 1.67 H ABG Data ABG results: ABG 07/16/24 07/16/24 03:46 06:16 Specimen Type ART ART Sample Site R Radial Art Line pH 7.23 L 7.28 L Bicarbonate Actual 19.0 L 15.2 L Total CO2 20 16 Base Excess -9 L -12 L O2 Saturation 88 L 92 L O2 % 100.0 100.0 ABG pCO2 45.9 H 32.6 L ABG pO2 66 L 70 L Giovanni Test Positive Positive Respiration Rate 16 22 O2 Delivery Device Adult Vent Adult Vent Vent Mode AC AC Tidal Volume 450.0 450.0 POC PEEP 5 10 Radiography Diagnostic Testing: Radiology Impression Chest X-Ray 07/16/24 01:20 IMPRESSION: Satisfactory ET tube position. Mild bilateral airspace disease with small pleural effusions increased compared to prior. Electronically Signed: Nini Santiago MD at 1:43 EST , Physical Exam Narrative Physical Examination: General: Very minimally arousable, not alert, intubated and sedated, laying in the ICU bed, no acute distress. Skin: Normal color, normal turgor, no icterus, no cyanosis except occasional stage ecchymoses, abrasion. HEENT: AT/NC, EOM unable to be assessed well given sedated status, PERRLA, mildly dry MM, intubated. Lungs: Symmetric rise, diminished, greater bilateral bases, intubated, no rales, ronchi or wheezing. Heart: Regular rate and rhythm, of note temporary pacemaker placed recently this AM per Cardiology; no gallop, rub audible. Abdomen: Soft, NTTP, ND, hyperactive BS. Extremities: No cyanosis, no clubbing, trace bilateral ankle edema. Neurological: Very minimally arousable, not alert, intubated and sedated, laying in the ICU bed, no acute distress, cognitive function not baseline intact; pupils equally reactive to light and accommodation, cranial nerves difficult to assess given intubated and sedated status, not moving extremities but very minimally arousable, strength accordingly severely globally decreased. Psychiatric: Affect appears flat, sedated, no acute evidence of depressive or anxiety feelings. Assessment & Plan Assessment/Plan (1) Cardiogenic shock: PLAN: Plan The patient is an 89 y/o M w/ PMHx: Combined HFp/rEF, HTN, HLD, CAD/PAD, PAF, CKD stage IV per GFR trending, Hx TIA/CVA, GERD with Bales's esophagus, Carotid disease who presents to the [facility] ED on 07/16/24 with history of patient awakening early in the morning with significant dyspnea and upon arrival in the ED minimally responsive with heart rate in the 20s with EMS concern for heart block. #1. Acute hypoxic respiratory failure secondary to acute cardiopulmonary arrest with ROSC secondary to acute third-degree heart block with significant cardiogenic shock however does have significant leukocytosis with left shift thus some concern for possible infectious component, per current evaluation possibly bilateral lower lobe pneumonia of unclear organism, possibly aspiration component given respiratory failure and arrest as noted: Patient initial presentation with complete heart block with rate in the 20s, temporary pacer placed, heart rate improved, initiated on dopamine however required second vasopressor norepinephrine with central line in place per general surgery, continue intubated and sedated status, maintain on IV PPI, judicious fluids only given history, trend lactic acid per facility protocol, monitor acute kidney injury and liver injury given shock component, trending cardiac enzymes with initial 31-> 73-> 290 not surprising in the setting of cardiopulmonary arrest with CPR with ROSC, magnesium 2.1, maintain on IV vancomycin and Zosyn with MRSA screen requested empirically, will request sputum culture, full respiratory viral panel, urine antigens, procalcitonin, slate splitter team consulted per protocol, continue pacing parameters and interventions per cardiology direction, planned 07/17/2024 echocardiogram request. #2. Acute kidney injury on CKD stage IV based on previous GFR trending secondary to #1, shock: Admission BUN/Cr 82/3.45 prior baseline creatinine noted to be 2.3-2.6 maximum. ED presentation with chest x-ray with mild bilateral airspace disease with small pleural effusions, urinalysis with no obvious evidence infection, blood culture x 2 and urine culture pending per ED given presentation and concern for possibility of overload quickly with aggressive fluids, continue judicious fluids only as needed, defer any nephrotoxic medications, continue vasopressors as noted above, continue to trend CMP. If not improving, worsening low threshold to involve nephrology if remains full code. #3. Acute hyperbilirubinemia, transaminitis secondary to #1, shock: Admission CMP with T. bili 1.10, AST/ALT 1084/980, alk phos 282, continue treatments and evaluation as noted above #1, most recent repeat same day 07/16/2024 T. bili 1.30, AST/ALT 1136/948, alk phos 268, continue to trend. #4. Combined HFp/rEF: Noted history, cardiology following, most recent previous echo noted 05/08/2024 with LVEF 35%, normal LV size, stage II diastolic dysfunction, PASP 50 mmHg, plan repeat echocardiogram as noted, currently given shock liver holding aspirin therapy, resume once clinically appropriate, additionally holding statin and hypertensive regimen on pressor therapies as noted, cautiously administering fluids given underlying history. #5. Abnormal TSH: TSH 8.390, obtained in the acute setting, free T4 1.67, given his current presentation #1 would strongly recommend at this time only planning to continue repeat thyroid function studies outpatient once clinically resolved and improved. #6. History CVA/TIA: As noted above temporally holding aspirin and statin given shock liver, holding hypertensive regimen given hypotensive presentation requiring pressor therapies as noted, resume once clinically appropriate. #7. CAD/PAD, carotid disease: Status post CABG, left-sided endarterectomy, unclear peripheral interventions, as noted above temporally holding aspirin and statin given shock liver, holding hypertensive regimen given hypotensive presentation requiring pressor therapies as noted, resume once clinically appropriate. #8. Chronic macrocytic anemia: Admission hemoglobin 9.2, MCV 98, earlier in the admission, repeat 7.8, will continue to trend, previous baseline primarily 8-9, continue to trend. #9. Hypertension: Given presentation requiring 2 pressor therapies although dopamine primarily for significant complete heart block presentation, will defer all hypertensive medication. #10. Hyperlipidemia: Given shock liver will temporally hold statin therapy, resume once clinically appropriate. #11. Former tobacco use: Encourage continued tobacco cessation. #12. GI prophylaxis/DVT prophylaxis: IV PPI, heparin cautiously given shock liver. #13. CODE STATUS: Full code. Charges/Coding Procedures Hospitalists Procedures: Other Procedure - See Report (Billing code: [id number], unable to bill, admit same day.) Multi Select Codes Hospitalists' Procedures Procedures: Other Procedure - See Report (Billing code: [id number], unable to bill as admit same day.)
[2024-07-16 07:11] LABS: Free T4 1.62 ng/dL (0.76-1.46)
--- NOTE | 2024-07-16 07:21 | NURSING ---
When pt was admitted into the tele monitor, the vitals previously obtained were lost. This was from 0330 to 0415. BPs were consistently running low with MAPs in the high 50s. Dopamine was titrated up d/t MAP <65 per order, unable to chart blood pressures with the titrations.
--- NOTE | 2024-07-16 07:38 | NURSING ---
Dr. Sanz notified that pt was on max dose of dopamine with MAPs in the 50s. He gave a verbal order for levophed and a cardiac enzyme series and said he would take a look at the orders shortly. During this time, it was difficult to obtain a good waveform and pulse ox reading. Pt 100% on the ventilator, PEEP adjusted per Dr. Sanz and respiratory. Blood gas results showed a pO2 of 71. Spoke with Dr. Suggs regarding pt condition. He gave orders for blood and urine cultures and started vancomycin and zosyn. Dr. Suggs gave order to consult Dr. Varela with general surgery for central line placement since he was already on the floor seeing another patient. Dr. Varela at bedside, verbal consent given by pt's . Dr. Sanz beamed in and saw patient. Dr. Varela at the bedside for central line placement. Dr. Sanz gave orders to start dobutamine @ 3 mcg/kg/min at a fixed rate, do not titrate. He recommended once the central line was placed to turn the dopamine down to 10 and start the dobutamine. If the levophed needed to be titrated up past 20 mcg, he recommended vasopressin. Additional labs ordered placed as well. Dr. Varela placed right IJ central line, chest xray obtained, and he gave verbal consent okay to use line. Dr. Suggs called and ordered a lactic acid. Dr. Collazo notified of repeat blood gas and lactic results, gave order for bicarb gtt.
[2024-07-16] MEDS: Sodium Bicarbonate 150 MEQ in Dextrose 5%-Water (1000mL Bag) 1,000 ML IV ×2 (07:50→15:16)
[2024-07-16] MEDS: Piperacil/Tazobactam 3.375 GM in 0.9% Normal Saline (50mL MB+) 50 ML IV ×2 (08:10→20:30)
[2024-07-16] MEDS: Pantoprazole Sodium 40 MG in 0.9% Normal Saline (100mL MB+) 100 ML 330 MG IV (10:05)
[2024-07-16 10:21] LABS: Reflex Lactate? Y
[2024-07-16 11:32] LABS: Lactic Acid 4.4 mmol/L (0.4-1.9)
[2024-07-16 11:33] LABS: Troponin-I HS 290 pg/mL (3.0-78.0)
--- NOTE | 2024-07-16 11:43 | PCM.PN.CARD ---
Subjective Subjective Patient seen and evaluated. Events of earlier this morning with respect to his pressor agents noted. Objective Data Vital Signs: Vital Signs Temp Pulse Resp BP Pulse Ox O2 Del Method O2 Flow Rate 99.1 F 82 22 H 130/41 H 89 Mechanical Ventilator 4 07/16/24 10:09 07/16/24 11:05 07/16/24 11:05 07/16/24 11:00 07/16/24 11:05 07/16/24 11:00 07/16/24 00:28 FiO2 100 07/16/24 11:05 Oxygen Flow Rate (L/min) 4 Oxygen Delivery Method Mechanical Ventilator Weight: 139 lb 5.314 oz Body Mass Index (BMI) 19.9 Intake & Output: Intake and Output for Last 24 Hours 07/14/24 07/15/24 07/16/24 23:59 23:59 23:59 Intake Total 4285.88 / 4285.88 Balance 4285.88 / 4285.88 Lab / Micro Data 07/16/24 03:45 07/16/24 06:22 Labs: Laboratory Results - last 24 hr 07/16/24 00:50: WBC 10.2, RBC 3.01 L, Hgb 9.2 L, Hct 29.5 L, MCV 98.0 H, MCH 30.6, MCHC 31.2 L, RDW Std Deviation 54.4 H, RDW Coeff of [place] 15.4 H, Plt Count 292, MPV 11.4, Immature Gran % (Auto) 0.700, Neut % (Auto) 77.7 H, Lymph % (Auto) 9.6 L, [place] % (Auto) 10.4 H, Eos % (Auto) 1.1, Baso % (Auto) 0.5, Absolute Neuts (auto) 7.9 H, Absolute Lymphs (auto) 0.98, Nucleated RBC % 0, PT 17.7 H, INR 1.5, APTT 26.5, Sodium 136, Potassium 5.1, Chloride 99, Carbon Dioxide 26.0, Anion Gap 11, BUN 82 H, Creatinine 3.45 H, Estim Creat Clear Calc 12.64, Est GFR (MDRD) Af Amer 22 L, Est GFR (MDRD) Non-Af 18 L, BUN/Creatinine Ratio 23.8 H, Glucose 216 H, Calcium 9.3, Magnesium 2.6 07/16/24 03:45: WBC 18.0 H, RBC 2.57 L, Hgb 7.8 L, Hct 25.7 L, MCV 100.0 H, MCH 30.4, MCHC 30.4 L, RDW Std Deviation 55.5 H, RDW Coeff of [place] 15.1 H, Plt Count 306, MPV 10.4, Immature Gran % (Auto) 4.600 H, Neut % (Auto) 84.7 H, Lymph % (Auto) 3.9 L, [place] % (Auto) 6.3, Eos % (Auto) 0.2, Baso % (Auto) 0.3, Absolute Neuts (auto) 15.2 H, Absolute Lymphs (auto) 0.71 L, Nucleated RBC % 0, Sodium 141, Potassium 4.6, Chloride 109 H, Carbon Dioxide 19.0 L, Anion Gap 13, BUN 80 H, Creatinine 3.30 H, Estim Creat Clear Calc 13.83, Est GFR (MDRD) Af Amer 23 L, Est GFR (MDRD) Non-Af 19 L, BUN/Creatinine Ratio 24.2 H, Glucose 178 H, Calcium 7.7 L, Phosphorus 6.5 H, Magnesium 2.2, Total Bilirubin 1.10 H, AST 1084 H, ALT 980 H, Alkaline Phosphatase 282 H, Troponin I High Sens 31, Total Protein 6.1 L, Albumin 2.6 L, Globulin 3.5, Albumin/Globulin Ratio 0.7 L, Triglycerides 38, Cholesterol 99, LDL Cholesterol 41, VLDL Cholesterol 8, HDL Cholesterol 50, TSH 8.390 H 07/16/24 05:20: Urine Color Yellow, Urine Clarity Clear, Urine pH 6.0, Ur Specific [place] 1.020, Urine Protein 100 H, Urine Glucose (UA) Normal, Urine Ketones Negative, Urine Occult Blood 50 H, Urine Nitrite Negative, Urine Bilirubin Negative, Urine Urobilinogen Normal, Ur Leukocyte Esterase Negative, Urine RBC 0-5 SEEN, Urine WBC 0 SEEN, Ur Squamous Epith Cells 0 SEEN, Urine Bacteria RARE, Urine Mucus 0 SEEN 07/16/24 06:15: Lactic Acid 6.4 H* 07/16/24 06:22: Sodium 140, Potassium 4.4, Chloride 110 H, Carbon Dioxide 18.0 L, Anion Gap 12, BUN 79 H, Creatinine 3.37 H, Estim Creat Clear Calc 13.54, Est GFR (MDRD) Af Amer 22 L, Est GFR (MDRD) Non-Af 18 L, BUN/Creatinine Ratio 23.4 H, Glucose 187 H, Calcium 7.3 L, Magnesium 2.1, Total Bilirubin 1.30 H, AST 1136 H, ALT 948 H, Alkaline Phosphatase 268 H, Troponin I High Sens 73, Total Protein 5.9 L, Albumin 2.5 L, Globulin 3.4, Albumin/Globulin Ratio 0.7 L, Free T4 1.67 H 07/16/24 06:22: Free T4 1.62 H 07/16/24 10:55: Lactic Acid 4.4 H*, Troponin I High Sens 290 H* ABG Data ABG results: ABG 07/16/24 07/16/24 03:46 06:16 Specimen Type ART ART Sample Site R Radial Art Line pH 7.23 L 7.28 L Bicarbonate Actual 19.0 L 15.2 L Total CO2 20 16 Base Excess -9 L -12 L O2 Saturation 88 L 92 L O2 % 100.0 100.0 ABG pCO2 45.9 H 32.6 L ABG pO2 66 L 70 L Giovanni Test Positive Positive Respiration Rate 16 22 O2 Delivery Device Adult Vent Adult Vent Vent Mode AC AC Tidal Volume 450.0 450.0 POC PEEP 5 10 Cardiology Labs/Tests 07/16/24 00:50: WBC 10.2, RBC 3.01 L, Hgb 9.2 L, Hct 29.5 L, MCV 98.0 H, MCH 30.6, MCHC 31.2 L, Plt Count 292, MPV 11.4, Immature Gran % (Auto) 0.700, Neut % (Auto) 77.7 H, Lymph % (Auto) 9.6 L, [place] % (Auto) 10.4 H, Eos % (Auto) 1.1, Baso % (Auto) 0.5, Absolute Neuts (auto) 7.9 H, Nucleated RBC % 0, PT 17.7 H, INR 1.5, APTT 26.5, Sodium 136, Potassium 5.1, Chloride 99, Carbon Dioxide 26.0, Anion Gap 11, BUN 82 H, Creatinine 3.45 H, Est GFR (MDRD) Af Amer 22 L, Est GFR (MDRD) Non-Af 18 L, BUN/Creatinine Ratio 23.8 H, Glucose 216 H, Calcium 9.3, Magnesium 2.6 07/16/24 03:45: WBC 18.0 H, RBC 2.57 L, Hgb 7.8 L, Hct 25.7 L, MCV 100.0 H, MCH 30.4, MCHC 30.4 L, Plt Count 306, MPV 10.4, Immature Gran % (Auto) 4.600 H, Neut % (Auto) 84.7 H, Lymph % (Auto) 3.9 L, [place] % (Auto) 6.3, Eos % (Auto) 0.2, Baso % (Auto) 0.3, Absolute Neuts (auto) 15.2 H, Nucleated RBC % 0, Sodium 141, Potassium 4.6, Chloride 109 H, Carbon Dioxide 19.0 L, Anion Gap 13, BUN 80 H, Creatinine 3.30 H, Est GFR (MDRD) Af Amer 23 L, Est GFR (MDRD) Non-Af 19 L, BUN/Creatinine Ratio 24.2 H, Glucose 178 H, Calcium 7.7 L, Phosphorus 6.5 H, Magnesium 2.2, Total Bilirubin 1.10 H, Triglycerides 38, Cholesterol 99, LDL Cholesterol 41, VLDL Cholesterol 8, HDL Cholesterol 50 07/16/24 03:46: pH 7.23 L, Bicarbonate Actual 19.0 L, Base Excess -9 L, O2 Saturation 88 L, ABG pCO2 45.9 H, ABG pO2 66 L, Giovanni Test Positive 07/16/24 05:20: Urine Color Yellow, Urine Clarity Clear, Urine pH 6.0, Ur Specific [place] 1.020, Urine Protein 100 H, Urine Glucose (UA) Normal, Urine Ketones Negative, Urine Occult Blood 50 H, Urine Nitrite Negative, Urine Bilirubin Negative, Urine Urobilinogen Normal, Ur Leukocyte Esterase Negative, Urine RBC 0-5 SEEN, Urine WBC 0 SEEN 07/16/24 06:15: Lactic Acid 6.4 H* 07/16/24 06:16: pH 7.28 L, Bicarbonate Actual 15.2 L, Base Excess -12 L, O2 Saturation 92 L, ABG pCO2 32.6 L, ABG pO2 70 L, Giovanni Test Positive 07/16/24 06:22: Sodium 140, Potassium 4.4, Chloride 110 H, Carbon Dioxide 18.0 L, Anion Gap 12, BUN 79 H, Creatinine 3.37 H, Est GFR (MDRD) Af Amer 22 L, Est GFR (MDRD) Non-Af 18 L, BUN/Creatinine Ratio 23.4 H, Glucose 187 H, Calcium 7.3 L, Magnesium 2.1, Total Bilirubin 1.30 H 07/16/24 10:55: Lactic Acid 4.4 H* Rhythm: EKG: ECHO: Stress Test: Cardiac Cath: PCI: CT Surgery: Holter monitor: EPS: PPM: CXR: Chest CT Scan: Radiography Diagnostic Testing: Radiology Impression Chest X-Ray 07/16/24 01:20 IMPRESSION: Satisfactory ET tube position. Mild bilateral airspace disease with small pleural effusions increased compared to prior. Electronically Signed: Nini Santiago MD at 1:43 EST , Chest X-Ray 07/16/24 06:05 IMPRESSION: New central line as described. No pneumothorax. Increased bilateral airspace disease and small pleural effusions. Electronically Signed: Nini Santiago MD at 8:08 EST , Physical Exam Narrative Patient intubated and noncommunicative uncooperative HEENT hearing grossly normal bilaterally Head and Scalp: atraumatic Eyes EOMs intact bilaterally Neck General: normal visual inspection Chest inspection of chest normal and palpation of chest normal Resp normal respiratory effort Auscultation: clear to auscultation bilaterally Cardio regular rate, regular rhythm, S1 normal heart sound and S2 normal heart sound Jugular Venous Distention: JVD GI normal to inspection, nondistended, normoactive bowel sounds Extremity normal capillary refill and no pedal edema Peripheral Pulses: Yes pulses 2+ throughout and femoral pulses present Skin no rashes or lesions noted Assessment & Plan Assessment/Plan (1) Cardiopulmonary arrest with successful resuscitation: PLAN: Will continue supportive measures as per critical care and hospitalist. (2) Complete heart block by electrocardiogram: PLAN: Patient presents with complete heart block with a heart rate in the 20s. Temporary pacemaker placed. Appears to be functioning well. Heart rate in the 80s. Blood pressure on pressor agents is noted to be 130 systolic. The plan is to continue the current supportive therapy and depending on neurologic as well as other organ recovery decision will be made as to whether a permanent pacemaker will be implanted. The question of infection also needs to be excluded. The above was explained thoroughly to the patient's 12 relatives in the room. (3) CHF (congestive heart failure): QUALIFIERS: Heart failure type: combined systolic and diastolic Heart failure chronicity: acute on chronic Qualified Code(s): I50.43 - Acute on chronic combined systolic (congestive) and diastolic (congestive) heart failure PLAN: Will reassess left ventricular function in a.m. with echocardiogram. (4) Atherosclerotic heart disease of [place] coronary artery without angina pectoris: QUALIFIERS: [place] vs. transplanted heart: [place] heart Qualified Code(s): I25.10 - Atherosclerotic heart disease of [place] coronary artery without angina pectoris PLAN: Patient has a known history of coronary artery disease status post coronary bypass surgery. (5) Paroxysmal atrial fibrillation: PLAN: Patient has a history of atrial fibrillation with a left bundle branch block. Will hold off on Eliquis for now (6) Left ventricular systolic dysfunction: PLAN: Patient was noted to have left ventricular systolic dysfunction estimated ejection fraction of 35%. Will optimize medical therapy. I would recommend repeating the echocardiogram in a.m. and then further recommendations and plans made. (7) CKD (chronic kidney disease) stage 4, GFR 15-29 ml/min: PLAN: Patient has known chronic kidney disease. PLAN: Plan His overall prognosis is rather guarded. I did discuss this with the patient and the family.
[2024-07-16 11:49] LABS: Magnesium 1.8 mg/dL (1.6-2.6); Phosphorus 3.1 mg/dL (2.5-4.9)
[2024-07-16] MEDS: Norepinephrine 8 MG in 0.9% Normal Saline (250mL Bag) 242 ML 28.1 MG CONT INF (12:36)
[2024-07-16] MEDS: fentaNYL drip 100 ML 15 MCG CONT INF ×2 (13:30→18:01)
[2024-07-16 15:47] LABS: Procalcitonin 3.35 ng/mL (0.00-0.09)
[2024-07-16 15:52] LABS: Base Excess -2 mmol/L (-2 to +2); Bicarbonate 20.6 mmol/L (22-26); Blood Gas Specimen Type ART; Mode AC; O2 Delivery Device Adult Vent; PEEP 10; PO2 220 mmHG (75-100); RR 24; SITE Art Line; SO2 100 % (95-99); Total Carbon Dioxide 21 mmol/L; pCO2 23.9 mmHg (35-45); pH 7.54 (7.35-7.45)
--- NOTE | 2024-07-16 17:58 | PCM.RX.CS ---
Consult Antibiotic Management Pharmacy has been consulted to manage selected antibiotic: Vancomycin Type of Intervention Type of Consult: New start Suspected Infection Suspected Infection: Sepsis Labs Labs: Sodium 140 mmol/L (136-145) 07/16/24 06:22 Potassium 4.4 mmol/L (3.5-5.1) 07/16/24 06:22 Chloride 110 mmol/L (98-107) H 07/16/24 06:22 Carbon Dioxide 18.0 mmol/L (21.0-32.0) L 07/16/24 06:22 Anion Gap 12 (5-15) 07/16/24 06:22 BUN 79 mg/dL (7-18) H 07/16/24 06:22 Creatinine 3.37 mg/dL (0.70-1.30) H 07/16/24 06:22 Est GFR (MDRD) Af Amer 22 mL/min (>60) L 07/16/24 06:22 Est GFR (MDRD) Non-Af 18 mL/min (>60) L 07/16/24 06:22 BUN/Creatinine Ratio 23.4 RATIO (10-20) H 07/16/24 06:22 Glucose 187 mg/dL (74-106) H 07/16/24 06:22 Microbiology Microbiology: Microbiology 07/16/24 05:20 Urine Catheter - Reyes Legionella Antigen - Final 07/16/24 05:20 Urine Catheter - Reyes Streptococcus pneumoniae Antigen (M - Final Dosing Weight Weight used for dosin kg Estimated Creatinine Clearance Estimated Creatinine Clearance: 14ml/min Goal Trough Goal Trough: 15-20 mcg/mL Pharmacy Plan for Drug Dosing Pharmacy Plan for Drug Dosing: NEW START IV VANCOMYCIN Consulting Physician: Dr. Suggs Indication: Sepsis Goal Trough: 15-20 SrCr: 3.37 CrCl: 13.54 Comments: pt received a 1500mg loading dose on 07/16/24 at 0620 Vancomycin Dose: based on patients renal function (CrCl < 20) recommend a random level on 07/18/24. Further dosing based off of random level results Pending Level: 07/18/24 @ 0600 Pharmacy Service will continue to monitor and adjust dosing as required. Follow-Up Labs Follow-Up Labs: Trough: Vancomycin (07/18/24 @ 0600 (random level))
[2024-07-16] MEDS: Norepinephrine 8 MG in 0.9% Normal Saline (250mL Bag) 242 ML 46.9 MG CONT INF (19:36)
[2024-07-16] MEDS: Chlorhexidine 15 ML PO (21:37)
[2024-07-17] VITALS (81 sets, daily range): BP systolic 88–146; BP diastolic 40–58; PULSE 80–82; RESP 14–24; TEMP 37–37.6; O2SAT 89–100; BMI 27.9
[2024-07-17] MEDS: Norepinephrine 8 MG in 0.9% Normal Saline (250mL Bag) 242 ML 46.9 MG CONT INF (00:43)
[2024-07-17] MEDS: fentaNYL drip 100 ML 15 MCG CONT INF ×3 (00:44→14:34)
[2024-07-17] MEDS: Vasopressin 20 UNITS in 0.9% Normal Saline (50mL Bag) 24 ML 3 UNITS CONT INF (01:59)
[2024-07-17 04:01] LABS: Absolute Lymphocyte Count 0.81 X10^3/uL (0.83-4.51); Absolute Neutrophil Count 13.2 X10^3/uL (2.0-7.7); Basophil# 0.02 X10^3/uL; Basophil% 0.1 % (0-1); Eosinophil# 0.02 X10^3/uL; Eosinophils% 0.1 % (0-5); Hematocrit 21.4 % (40-54); Lymphocyte # 0.81 X10^3/ul (0.83-4.51); Lymphocyte % 5.3 % (19-41); Mean Corp Hgb Conc 32.7 g/dL (32-36); Mean Corpuscular Hgb 30.2 pg (27.0-32.0); Mean Corpuscular Volume 92.2 fL (80-94); Mean Platelet Vol. 10.1 fl (6.2-12.0); Monocyte% 7.8 % (0-10); NRBC Flagged by Analyzer 0 % (0-5); Neutrophil # 13.24 X10^3/uL (2.7-7.7); Neutrophil % 86.1 % (47-70); Platelet Count 223 K/mm3 (150-450); RBC Distribution Width CV 15.6 % (11.6-14.6); RBC Distribution Width SD 51.3 fl (35.1-43.9); Red Blood Count 2.32 M/mm3 (4.6-6.2); White Blood Count 15.4 K/mm3 (4.4-11.0)
[2024-07-17 04:19] LABS: ALB/GLOB Ratio 0.7 RATIO (0.9-2.4); AST(SGOT) 349 U/L (15-37); Alanine Aminotransfer ALT/SGPT 404 U/L (16-61); Albumin, Serum 2.2 g/dL (3.2-5.0); Alkaline Phosphatase 175 U/L (45-117); Anion Gap 9 (5-15); BUN 74 mg/dL (7-18); BUN/Creat Ratio 21.6 RATIO (10-20); Calcium,Total 7.6 mg/dL (8.5-10.1); Chloride 107 mmol/L (98-107); Creatinine, Serum 3.42 mg/dL (0.70-1.30); EST Glomerular Filtration Rate 18 mL/min (>60); Est Glom Filt Rate - Afr Amer 22 mL/min (>60); Estimated Creatinine Clearance 16.72 ml/min; Globulin 3.2 g/dL (2.2-4.2); Glucose 193 mg/dL (74-106); Magnesium 1.7 mg/dL (1.6-2.6); Potassium 3.7 mmol/L (3.5-5.1); Protein, Total 5.4 g/dL (6.4-8.2); Sodium Level 140 mmol/L (136-145)
[2024-07-17 04:55] LABS: Phosphorus 3.2 mg/dL (2.5-4.9)
[2024-07-17] MEDS: Heparin Injection (Vial) 5,000 UNIT/ML VIAL 5000 UNIT SC ×3 (05:01→20:19)
[2024-07-17] MEDS: CHLORHEXIDINE GLUC 2% CLOTH 1 EACH TOWELETTE TOPICAL (05:01)
[2024-07-17 05:10] LABS: Allen Test Positive; Base Excess -4 mmol/L (-2 to +2); Bicarbonate 17.8 mmol/L (22-26); Blood Gas Specimen Type ART; Mode AC; O2 Delivery Device Adult Vent; PEEP 10; PO2 162 mmHG (75-100); RR 24; SITE Art Line; SO2 100 % (95-99); Total Carbon Dioxide 18 mmol/L; pCO2 19.1 mmHg (35-45); pH 7.58 (7.35-7.45)
--- NOTE | 2024-07-17 05:55 | RAD_ITS ---
INDICATION: arf EXAMINATION/TECHNIQUE: X-RAY - XR Chest 1 View COMPARISON: None. Findings: Single frontal view of the chest. Endotracheal tube tip is approximately 22 mm from the jessica. Enteric tube tip terminates over medial left upper quadrant, likely proximal stomach. Right IJ central venous catheter tip overlies cavoatrial junction. LUNG PARENCHYMA: Waxing and waning areas of diffuse patchy groundglass airspace disease, some areas improved, worsened from previous day. focal airspace disease or mass lesion. PLEURA: No pleural effusion. No pneumothorax. HEART/GREAT VESSELS: Cardiomediastinal silhouette is unremarkable. BONES: Median sternotomy wires. RAD/Chest 1 View (Portable) IMPRESSION: Waxing and waning areas of diffuse patchy groundglass airspace disease, some areas improved, worsened from previous day. Recommend continued follow-up to resolution. Endotracheal tube tip is approximately 22 mm from the jessica. Electronically Signed: Rigo Cline MD at 6:56 EST ,
[2024-07-17] MEDS: TITRATION PARAMETER CHANGE 1 EACH IV ×2 (06:42→16:25)
[2024-07-17] MEDS: Norepinephrine 8 MG in 0.9% Normal Saline (250mL Bag) 242 ML 37.5 MG CONT INF (07:37)
[2024-07-17] MEDS: Midazolam 50 MG in 0.9% Normal Saline (100mL Bag) 90 ML 6 MG CONT INF (07:37)
--- NOTE | 2024-07-17 07:55 | PCM.PN.INT ---
Assessment & Plan Assessment/Plan (1) Cardiogenic shock: (2) Septic shock: (3) Cardiopulmonary arrest with successful resuscitation: (4) Complete heart block by electrocardiogram: PLAN: Plan RECOMMENDATIONS: 1. Continue assist-control mode of mechanical ventilation. Decrease respiratory rate to 16 breaths/min. 2. Obtain follow-up ABG. 3. Discontinue Versed. 4. Continue vasopressor support to maintain hemodynamic stability. 5. Send type and screen, with plans to transfuse 1 unit of packed red blood cells. 6. Continue empiric antimicrobials. 7. Stop sodium bicarbonate infusion. 8. Continue PPI therapy. 9. Cardiology following to assist with timing of permanent pacemaker placement. IMPRESSIONS: 1. Acute hypoxemic respiratory failure in the setting of cardiac arrest with ROSC The patient was intubated as a consequence of sustaining a cardiac arrest in the setting of acute third-degree heart block and possible cardiogenic shock. The patient will be continued on assist-control mode of mechanical ventilation. FiO2 and PEEP will be weaned as tolerated. I agree with continuing empiric antimicrobials, pending infectious workup, given the infiltrates noted on chest imaging. The patient's continuous Versed infusion will be discontinued. He can be maintained on fentanyl for sedation, in the interim. 2. Complete heart block/history of paroxysmal atrial fibrillation The patient is status post temporary pacemaker placement. There are tentative plans for repeat echocardiogram to be completed. Cardiology is following to assist with timing of permanent pacemaker placement. 3. Multifactorial shock Clinical considerations include cardiogenic versus septic etiologies. Repeat echocardiogram is currently pending. The patient will be continued on vasopressor support to maintain hemodynamic stability. Empiric antimicrobials will be continued, pending infectious workup. 4. Acute on chronic kidney disease Most likely prerenal in etiology in the setting of multifactorial shock and respiratory failure. The patient no longer requires a continuous sodium bicarbonate infusion. Creatinine is relatively stable. Continue vasopressor support for now. Continue to monitor urine output. No current indication for renal replacement therapy. 5. Improving shock liver Again, likely related to ischemic hepatitis in the setting of multifactorial shock. Liver function is improving with stabilization of hemodynamics. Continue to monitor clinically. 6. History of coronary artery disease/anemia/hypertension/hyperlipidemia Complicates care, management, recovery and prognosis. Continue to hold home antihypertensives. Hold on initiation of tube feeding for now. Agree with transfusion of blood products to maintain a hemoglobin at or above 7 g/dL. Continue PPI therapy as ordered. TIME: 40 minutes of critical care time, independent of procedures, was spent addressing the patient's acute hypoxemic respiratory failure, cardiac arrest with ROSC, complete heart block, multifactorial shock, acute kidney injury, review of all data and collaboration with the care team. Subjective Subjective The patient was seen and examined at the bedside this morning. Events from the last 24 hours have been reviewed. The patient currently has a low-grade fever and remains on Levophed at 20 mcg/min to maintain hemodynamic stability. He has been maintained on Versed and fentanyl for sedation. The patient remains on assist-control mode of mechanical ventilation with an FiO2 requirement of 60% and PEEP of 10. He is currently documented to be overall net +6.3 L for the hospitalization. White blood cell count remains elevated at 15,000 with a hemoglobin of 7.0 g/dL. ABG this morning was notable for a pH of 7.58 with a pCO2 of 19 and pO2 of 162. Creatinine is relatively stable at 3.42. AST and ALT have improved to 349 and 404, respectively. Objective Data Objective Data The patient's most recent lab work, culture data and imaging studies have all been personally reviewed. Surface echocardiogram from April 2024 demonstrated an ejection fraction of 35% with stage II diastolic dysfunction and a pulmonary artery systolic pressure estimated to be 50 mmHg. Respiratory viral panel was negative. Blood, urine and sputum cultures are pending. Vital Signs: Vital Signs Temp Pulse Resp BP Pulse Ox O2 Del Method O2 Flow Rate 99.3 F H 81 24 H 109/45 L 93 Mechanical Ventilator 4 07/17/24 07:00 07/17/24 07:00 07/17/24 07:00 07/17/24 07:15 07/17/24 07:00 07/17/24 07:00 07/16/24 00:28 FiO2 60 07/17/24 07:00 Oxygen Flow Rate (L/min) 4 Oxygen Delivery Method Mechanical Ventilator Weight: 194 lb 14.218 oz Body Mass Index (BMI) 27.9 Intake & Output: Intake and Output for Last 24 Hours 07/15/24 07/16/24 07/17/24 23:59 23:59 23:59 Intake Total 6975.43 / 7064.13 629.37 / 629.37 Output Total 665 / 665 400 / 400 Balance 6310.43 / 6399.13 229.37 / 229.37 Lab / Micro Data Attestation: I reviewed the patient's lab results. 07/17/24 03:45 07/17/24 03:45 Labs: Laboratory Results - last 24 hr 07/16/24 10:55: Lactic Acid 4.4 H*, Phosphorus 3.1, Magnesium 1.8, Troponin I High Sens 290 H* 07/16/24 15:15: Procalcitonin 3.35 H 07/17/24 03:45: WBC 15.4 H, RBC 2.32 L, Hgb 7.0 L, Hct 21.4 L, MCV 92.2 D, MCH 30.2, MCHC 32.7 D, RDW Std Deviation 51.3 H, RDW Coeff of [place] 15.6 H, Plt Count 223, MPV 10.1, Immature Gran % (Auto) 0.600, Neut % (Auto) 86.1 H, Lymph % (Auto) 5.3 L, [place] % (Auto) 7.8, Eos % (Auto) 0.1, Baso % (Auto) 0.1, Absolute Neuts (auto) 13.2 H, Absolute Lymphs (auto) 0.81 L, Nucleated RBC % 0, Sodium 140, Potassium 3.7, Chloride 107, Carbon Dioxide 24.0, Anion Gap 9, BUN 74 H, Creatinine 3.42 H, Estim Creat Clear Calc 16.72, Est GFR (MDRD) Af Amer 22 L, Est GFR (MDRD) Non-Af 18 L, BUN/Creatinine Ratio 21.6 H, Glucose 193 H, Calcium 7.6 L, Phosphorus 3.2, Magnesium 1.7, Total Bilirubin 1.30 H, AST 349 H, ALT 404 H, Alkaline Phosphatase 175 H, Total Protein 5.4 L, Albumin 2.2 L, Globulin 3.2, Albumin/Globulin Ratio 0.7 L Micro: Microbiology 07/16/24 15:40 Mucosa - Nose Respiratory Panel (PCR) - Final 07/16/24 05:20 Urine Catheter - Reyes Legionella Antigen - Final 07/16/24 05:20 Urine Catheter - Reyes Streptococcus pneumoniae Antigen (M - Final ABG Data ABG results: ABG 07/16/24 07/17/24 15:48 05:06 Specimen Type ART ART Sample Site Art Line Art Line pH 7.54 H 7.58 H Bicarbonate Actual 20.6 L 17.8 L Total CO2 21 18 Base Excess -2 -4 L O2 Saturation 100 H 100 H O2 % 100.0 60.0 ABG pCO2 23.9 L 19.1 L ABG pO2 220 H 162 H Giovanni Test Positive Respiration Rate 24 24 O2 Delivery Device Adult Vent Adult Vent Vent Mode AC AC Tidal Volume 450.0 450.0 POC PEEP 10 10 Radiography Diagnostic Testing: Radiology Impression Chest X-Ray 07/16/24 06:05 IMPRESSION: New central line as described. No pneumothorax. Increased bilateral airspace disease and small pleural effusions. Electronically Signed: Nini Snatiago MD at 8:08 EST , Chest X-Ray 07/17/24 05:55 IMPRESSION: Waxing and waning areas of diffuse patchy groundglass airspace disease, some areas improved, worsened from previous day. Recommend continued follow-up to resolution. Endotracheal tube tip is approximately 22 mm from the jessica. Electronically Signed: Rigo Cline MD at 6:56 EST , Physical Exam Const Constitutional Narrative: Intubated, sedated and mechanically ventilated. No ventilator dyssynchrony noted. HEENT normocephalic and head/scalp atraumatic Mouth: endotracheal tube in place and OG tube in place Eyes conjunctivae normal and no scleral icterus Neck supple General: trachea midline and CVC in place Chest inspection of chest normal Resp normal respiratory effort Auscultation: Negative for rales, rhonchi or wheezes Cardio regular rate and regular rhythm GI normal to inspection, nondistended, normoactive bowel sounds Extremity General Extremity: edema bilateral lower extremity; Negative for clubbing Skin no rashes or lesions noted Neuro Sensorium / Orientation: sedated on vent Charges/Coding Procedures Hospitalists Procedures: 31894 Critical Care 1st Hr
[2024-07-17] MEDS: Chlorhexidine 15 ML PO ×2 (08:11→20:20)
[2024-07-17] MEDS: Piperacil/Tazobactam 3.375 GM in 0.9% Normal Saline (50mL MB+) 50 ML IV ×2 (08:13→20:19)
[2024-07-17] MEDS: Pantoprazole Sodium 40 MG in 0.9% Normal Saline (100mL MB+) 100 ML 330 MG IV (08:14)
--- NOTE | 2024-07-17 08:45 | PN.HOSP_ITS ---
Subjective Subjective Intubated and sedated, no issues overnight Objective Data Objective Data Vital Signs: Vital Signs Temp Pulse Resp BP Pulse Ox O2 Del Method O2 Flow Rate 99.3 F H 81 24 H 109/45 L 93 Mechanical Ventilator 4 07/17/24 07:00 07/17/24 07:00 07/17/24 07:00 07/17/24 07:15 07/17/24 07:00 07/17/24 07:00 07/16/24 00:28 FiO2 60 07/17/24 07:00 Oxygen Flow Rate (L/min) 4 Oxygen Delivery Method Mechanical Ventilator Weight: 194 lb 14.218 oz Body Mass Index (BMI) 27.9 Intake & Output: Intake and Output for Last 24 Hours 07/16/24 07/17/24 07/18/24 03:59 03:59 03:59 Intake Total 2235.95 / 2241.81 5104.93 / 5135.31 373.92 / 373.92 Output Total 665 / 665 575 / 575 Balance 2235.95 / 2241.81 4439.93 / 4470.31 -201.08 / -201.08 Lab / Micro Data 07/17/24 03:45 07/17/24 03:45 Labs: Laboratory Results - last 24 hr 07/16/24 10:55: Lactic Acid 4.4 H*, Phosphorus 3.1, Magnesium 1.8, Troponin I High Sens 290 H* 07/16/24 15:15: Procalcitonin 3.35 H 07/17/24 03:45: WBC 15.4 H, RBC 2.32 L, Hgb 7.0 L, Hct 21.4 L, MCV 92.2 D, MCH 30.2, MCHC 32.7 D, RDW Std Deviation 51.3 H, RDW Coeff of [place] 15.6 H, Plt Count 223, MPV 10.1, Immature Gran % (Auto) 0.600, Neut % (Auto) 86.1 H, Lymph % (Auto) 5.3 L, [place] % (Auto) 7.8, Eos % (Auto) 0.1, Baso % (Auto) 0.1, Absolute Neuts (auto) 13.2 H, Absolute Lymphs (auto) 0.81 L, Nucleated RBC % 0, Sodium 140, Potassium 3.7, Chloride 107, Carbon Dioxide 24.0, Anion Gap 9, BUN 74 H, C reatinine 3.42 H, Estim Creat Clear Calc 16.72, Est GFR (MDRD) Af Amer 22 L, Est GFR (MDRD) Non-Af 18 L, BUN/Creatinine Ratio 21.6 H, Glucose 193 H, Calcium 7.6 L, Phosphorus 3.2, Magnesium 1.7, Total Bilirubin 1.30 H, AST 349 H, ALT 404 H, Alkaline Phosphatase 175 H, Total Protein 5.4 L, Albumin 2.2 L, Globulin 3.2, A lbumin/Globulin Ratio 0.7 L Micro: Microbiology 07/16/24 15:40 Mucosa - Nose Respiratory Panel (PCR) - Final 07/16/24 05:20 Urine Catheter - Reyes Legionella Antigen - Final 07/16/24 05:20 Urine Catheter - Reyes Streptococcus pneumoniae Antigen (M - Final ABG Data ABG results: ABG 07/16/24 07/17/24 15:48 05:06 Specimen Type ART ART Sample Site Art Line Art Line pH 7.54 H 7.58 H Bicarbonate Actual 20.6 L 17.8 L Total CO2 21 18 Base Excess -2 -4 L O2 Saturation 100 H 100 H O2 % 100.0 60.0 ABG pCO2 23.9 L 19.1 L ABG pO2 220 H 162 H Giovanni Test Positive Respiration Rate 24 24 O2 Delivery Device Adult Vent Adult Vent Vent Mode AC AC Tidal Volume 450.0 450.0 POC PEEP 10 10 Radiography Diagnostic Testing: Radiology Impression Chest X-Ray 07/17/24 05:55 IMPRESSION: Waxing and waning areas of diffuse patchy groundglass airspace disease, some areas improved, worsened from previous day. Recommend continued follow-up to resolution. Endotracheal tube tip is approximately 22 mm from the jessica. Electronically Signed: Rigo Cline MD at 6:56 EST , Physical Exam Const General Appearance: intubated and patient mechanically ventilated HEENT normocephalic Eyes PERRL and conjunctivae normal Neck supple and no JVD Resp normal respiratory effort, no retractions and no use of accessory muscles Auscultation: Negative for crackles, rales, rhonchi or wheezes Cardio regular rate, regular rhythm, S1 normal heart sound, S2 normal heart sound and no murmurs GI soft to palpation and non-distended; Negative for hepatosplenomegaly Extremity no clubbing, cyanosis or edema Skin no rashes or lesions noted Neuro Sensorium / Orientation: sedated on vent Psych Appearance: intubated Assessment & Plan Assessment/Plan (1) Cardiogenic shock: PLAN: Plan #1. Acute hypoxic respiratory failure secondary to acute cardiopulmonary arrest with ROSC secondary to acute third-degree heart block with significant cardiogenic shock however does have significant leukocytosis with left shift thus some concern for possible infectious component, per current evaluation possibly bilateral lower lobe pneumonia of unclear organism, possibly aspiration component given respiratory failure and arrest as noted: Patient initial presentation with complete heart block with rate in the 20s, temporary pacer placed, heart rate improved, initiated on dopamine however required second vasopressor norepinephrine with central line in place per general surgery, continue intubated and sedated status, maintain on IV PPI, judicious fluids only given history, trend lactic acid per facility protocol, monitor acute kidney injury and liver injury given shock component, trending cardiac enzymes with initial 31-> 73-> 290 not surprising in the setting of cardiopulmonary arrest with CPR with ROSC, magnesium 2.1, maintain on IV vancomycin and Zosyn with MRSA screen requested empirically, will request sputum culture, full respiratory viral panel, urine antigens, procalcitonin, manual control auger press operator team consulted per protocol, continue pacing parameters and interventions per cardiology direction, planned 07/17/2024 echocardiogram request. 07/17/2024: Possible permanent pacemaker if blood cultures remain negative and continues to have renal improvement in respiratory improvement. Currently being temporarily paced #2. Acute kidney injury on CKD stage IV based on previous GFR trending secondary to #1, shock: Admission BUN/Cr 82/3.45 prior baseline creatinine noted to be 2.3-2.6 maximum. ED presentation with chest x-ray with mild bilateral airspace disease with small pleural effusions, urinalysis with no obvious evidence infection, blood culture x 2 and urine culture pending per ED given presentation and concern for possibility of overload quickly with aggressive fluids, continue judicious fluids only as needed, defer any nephrotoxic medications, continue vasopressors as noted above, continue to trend CMP. If not improving, worsening low threshold to involve nephrology if remains full code. 07/17/2024: Renal function staying stable continue with pressors #3. Acute hyperbilirubinemia, transaminitis secondary to #1, shock: Admission CMP with T. bili 1.10, AST/ALT 1084/980, alk phos 282, continue treatments and evaluation as noted above #1, most recent repeat same day 07/16/2024 T. bili 1.30, AST/ALT 1136/948, alk phos 268, continue to trend. #4. Combined HFp/rEF: Noted history, cardiology following, most recent previous echo noted 05/08/2024 with LVEF 35%, normal LV size, stage II diastolic dysfunction, PASP 50 mmHg, plan repeat echocardiogram as noted, currently given shock liver holding aspirin therapy, resume once clinically appropriate, additionally holding statin and hypertensive regimen on pressor therapies as noted, cautiously administering fluids given underlying history. #5. Abnormal TSH: TSH 8.390, obtained in the acute setting, free T4 1.67, given his current presentation #1 would strongly recommend at this time only planning to continue repeat thyroid function studies outpatient once clinically resolved and improved. #6. History CVA/TIA: As noted above temporally holding aspirin and statin given shock liver, holding hypertensive regimen given hypotensive presentation requiring pressor therapies as noted, resume once clinically appropriate. #7. CAD/PAD, carotid disease: Status post CABG, left-sided endarterectomy, unclear peripheral interventions, as noted above temporally holding aspirin and statin given shock liver, holding hypertensive regimen given hypotensive presentation requiring pressor therapies as noted, resume once clinically appropriate. #8. Chronic macrocytic anemia: Admission hemoglobin 9.2, MCV 98, earlier in the admission, repeat 7.8, will continue to trend, previous baseline primarily 8-9, continue to trend. #9. Hypertension: Given presentation requiring 2 pressor therapies although dopamine primarily for significant complete heart block presentation, will defer all hypertensive medication. #10. Hyperlipidemia: Given shock liver will temporally hold statin therapy, resume once clinically appropriate. #11. Former tobacco use: Encourage continued tobacco cessation. #12. GI prophylaxis/DVT prophylaxis: IV PPI, heparin cautiously given shock liver. Charges/Coding Visit Charges Inpatient E&M: 58140 Subs Hosp L2
[2024-07-17 11:31] LABS: Base Excess -2 mmol/L (-2 to +2); Bicarbonate 21.9 mmol/L (22-26); Blood Gas Specimen Type ART; Mode AC; O2 Delivery Device Adult Vent; PEEP 10; PO2 138 mmHG (75-100); RR 16; SITE Art Line; SO2 99 % (95-99); Total Carbon Dioxide 23 mmol/L; pCO2 31.5 mmHg (35-45); pH 7.45 (7.35-7.45)
--- NOTE | 2024-07-17 12:05 | CHAPLAIN ---
Type of Pastoral Visit _x__ Initial Visit ___ Follow-up Visit ___ On-call Visit ___ General Patient Visit ___ Spiritual Assessment ___ Family Conference ___ Bereavement ___ Rapid Response ___ Code Blue ___ Other (describe below) Pastoral Care Referral From ___ Patient _x__ Family ___ Nurse ___ Physician ___ Nail Professional ___ Supervisor Mending ___ Other (describe below) Sacrament/Intervention _x__ Active listening ___ Anointing ___ Amish ___ Bereavement ___ Communion ___ Radha exploration ___ ___ Life review _x__ Prayer ___ Reconciliation ___ Sacrament of Sick _x__ Supportive presence ___ Wedding ___ Other (describe below) Pastoral Comments patient is on the ventilator and unable to respond; spouse and sister of patient are in the room and are offered support and presence; spouse remembers this track superintendent and gives update since the last admission; spouse acknowledges good support from family and islam; spouse is going to be here for as long as needed and we are going to get through this; spouse welcomes presence and prayer for recovery today;
--- NOTE | 2024-07-17 12:06 | CASEMGMT ---
DESTINEE CHAN Assessment: Face to Face with pt for initial transition planning/care coordination assessment. Pt in room, RN DUSTIN introduced self and role at [facility], pt voices understanding and consents to assessment. Pt is on a ventilator and unable to answer questions at this time. Care providers, pharmacy, and demographics verified/updated. Strata: 3 Admitting Dx: CHB with code blue PCP: Matthew Specialists: Yudi, Electrical Designer Drafter; Isael, Senior Analysis Specialist; Ward, Rehabilitation Director. Preferred Pharmacy: [facility] Insurance: [facility] Prescription Benefit: yes LNOK: , Devika Living Arrangements: Pt lives with in a 1 level home with 4 steps and railing to enter. ADLs: Pt I at baseline Transportation: Pt drives self or provides transportation. DME: [employer], O2 through [employer], shower seat HHC/SNF: Denies Hx of. Pt denies questions or concerns at this time. CM to follow. Advised pt to ask CM if any further question/concerns/needs arise, voices understanding. Pt Goal: TBD Plan: VELIA Medina RN, CM
[2024-07-17] MEDS: Norepinephrine 8 MG in 0.9% Normal Saline (250mL Bag) 242 ML 28.1 MG CONT INF (14:33)
[2024-07-17] MEDS: 0.9% Normal Saline (1000mL) 1,000 ML 75 ML IV (16:25)
[2024-07-17] MEDS: fentaNYL drip 100 ML 17.5 MCG CONT INF (21:23)
[2024-07-17] MEDS: Magnesium Sulfate 2 GM in Dextrose 5%-Water (100mL Bag) 100 ML IV (21:33)
[2024-07-18] VITALS (59 sets, daily range): BP systolic 97–159; BP diastolic 40–63; PULSE 80–83; RESP 14–25; TEMP 36.7–37.3; O2SAT 86–98; BMI 28.2
[2024-07-18] MEDS: Norepinephrine 8 MG in 0.9% Normal Saline (250mL Bag) 242 ML 9.4 MG CONT INF (03:00)
[2024-07-18] MEDS: fentaNYL drip 100 ML 20 MCG CONT INF ×5 (03:00→22:56)
[2024-07-18] MEDS: CHLORHEXIDINE GLUC 2% CLOTH 1 EACH TOWELETTE TOPICAL (03:03)
[2024-07-18 04:19] LABS: Absolute Lymphocyte Count 0.67 X10^3/uL (0.83-4.51); Absolute Neutrophil Count 10.9 X10^3/uL (2.0-7.7); Basophil# 0.03 X10^3/uL; Basophil% 0.2 % (0-1); Eosinophil# 0.09 X10^3/uL; Eosinophils% 0.7 % (0-5); Hematocrit 23.4 % (40-54); Hemoglobin 7.7 g/dL (13.0-16.5); Lymphocyte # 0.67 X10^3/ul (0.83-4.51); Lymphocyte % 5.2 % (19-41); Mean Corp Hgb Conc 32.9 g/dL (32-36); Mean Corpuscular Hgb 30.7 pg (27.0-32.0); Mean Corpuscular Volume 93.2 fL (80-94); Mean Platelet Vol. 10.2 fl (6.2-12.0); Monocyte# 1.12 X10^3/uL; Monocyte% 8.7 % (0-10); NRBC Flagged by Analyzer 0.2 % (0-5); Neutrophil # 10.88 X10^3/uL (2.7-7.7); Neutrophil % 84.3 % (47-70); Platelet Count 175 K/mm3 (150-450); RBC Distribution Width SD 54.2 fl (35.1-43.9); Red Blood Count 2.51 M/mm3 (4.6-6.2); White Blood Count 12.9 K/mm3 (4.4-11.0)
[2024-07-18 04:41] LABS: Anion Gap 8 (5-15); BUN 66 mg/dL (7-18); BUN/Creat Ratio 22.1 RATIO (10-20); Calcium,Total 7.9 mg/dL (8.5-10.1); Chloride 113 mmol/L (98-107); Creatinine, Serum 2.99 mg/dL (0.70-1.30); EST Glomerular Filtration Rate 21 mL/min (>60); Est Glom Filt Rate - Afr Amer 26 mL/min (>60); Estimated Creatinine Clearance 19.12 ml/min; Glucose 127 mg/dL (74-106); Magnesium 2.4 mg/dL (1.6-2.6); Phosphorus 3.8 mg/dL (2.5-4.9); Potassium 3.8 mmol/L (3.5-5.1); Sodium Level 145 mmol/L (136-145)
[2024-07-18 04:44] LABS: Vancomycin, Random Level 11.8 ug/mL (0.0-15.0)
--- NOTE | 2024-07-18 05:42 | PCM.RX.CS ---
Consult Antibiotic Management Pharmacy has been consulted to manage selected antibiotic: Vancomycin Type of Intervention Type of Consult: Follow-up Labs Labs: Sodium 145 mmol/L (136-145) 07/18/24 04:10 Potassium 3.8 mmol/L (3.5-5.1) 07/18/24 04:10 Chloride 113 mmol/L (98-107) H 07/18/24 04:10 Carbon Dioxide 24.0 mmol/L (21.0-32.0) 07/18/24 04:10 Anion Gap 8 (5-15) 07/18/24 04:10 BUN 66 mg/dL (7-18) H 07/18/24 04:10 Creatinine 2.99 mg/dL (0.70-1.30) H 07/18/24 04:10 Est GFR (MDRD) Af Amer 26 mL/min (>60) L 07/18/24 04:10 Est GFR (MDRD) Non-Af 21 mL/min (>60) L 07/18/24 04:10 BUN/Creatinine Ratio 22.1 RATIO (10-20) H 07/18/24 04:10 Glucose 127 mg/dL (74-106) H 07/18/24 04:10 Random Vancomycin 11.8 ug/mL (0.0-15.0) 07/18/24 04:10 Microbiology Microbiology: Microbiology 07/17/24 11:25 Mucosa - Nasopharyngeal Coronavirus COVID-19 PCR - Final 07/16/24 15:40 Mucosa - Nose Respiratory Panel (PCR) - Final 07/16/24 05:20 Urine Catheter - Reyes Legionella Antigen - Final 07/16/24 05:20 Urine Catheter - Reyes Streptococcus pneumoniae Antigen (M - Final Pharmacy Plan for Drug Dosing Pharmacy Plan for Drug Dosing: Pharmacy Service will continue to monitor and adjust dosing as required. RANDOM LEVEL 11.8. GIVE 1GM NOW AND DRAW RANDOM LEVEL IN 2 DAYS Follow-Up Labs Follow-Up Labs: Trough: Vancomycin Date/Time Labs Ordered Labs to be done on [date and time ordered]: 07/20 @ 0600
--- NOTE | 2024-07-18 05:55 | EKG12_ITS ---
Test Reason : preop Blood Pressure : */* mmHG Vent. Rate : 81 BPM Atrial Rate : 71 BPM P-R Int : * ms QRS Dur : 156 ms QT Int : 512 ms P-R-T Axes : * -77 95 degrees QTcB Int : 594 ms Ventricular-paced rhythm Abnormal ECG When compared with ECG of 16-Jul-2024 00:58, Previous ECG has undetermined rhythm, needs review Confirmed by DAYA ALFORD, KEITH ([id number]), film or videotape editor DONA OZUNA ([id number]) on 07/18/2024 9:16:10 AM Referred By: Keith Bagley Confirmed By: KEITH BAGLEY MD
[2024-07-18] MEDS: Vancomycin IV 1,000 MG/200 ML BAG 200 MG IV (06:10)
[2024-07-18] MEDS: 0.9% Normal Saline (1000mL) 1,000 ML 75 ML IV (06:10)
--- NOTE | 2024-07-18 06:58 | PCM.PN.INT ---
Assessment & Plan Assessment/Plan (1) Cardiogenic shock: (2) Septic shock: (3) Cardiopulmonary arrest with successful resuscitation: (4) Complete heart block by electrocardiogram: PLAN: Plan RECOMMENDATIONS: 1. Continue assist-control mode of mechanical ventilation. Continue to wean FiO2 and PEEP as tolerated. 2. Continue to wean Levophed as tolerated. 3. Continue to monitor H&H and transfuse if hemoglobin drops below 7 g/dL. 4. Antimicrobials as ordered. 5. Continue PPI therapy. 6. Timing for permanent pacemaker placement per cardiology. IMPRESSIONS: 1. Acute hypoxemic respiratory failure in the setting of cardiac arrest with ROSC The patient was intubated as a consequence of sustaining a cardiac arrest in the setting of acute third-degree heart block and possible cardiogenic shock. The patient will be continued on assist-control mode of mechanical ventilation. FiO2 and PEEP will be weaned as tolerated. Will plan to continue antimicrobials for an additional 24 hours, pending finalized infectious workup. Cultures, to date, have been negative. The patient will be continued on fentanyl for sedation. 2. Complete heart block/history of paroxysmal atrial fibrillation The patient is status post temporary pacemaker placement. Cardiology is following to assist with timing of permanent pacemaker placement. 3. Multifactorial shock Clinical considerations include cardiogenic versus septic etiologies. The patient will be continued on vasopressor support to maintain hemodynamic stability. Empiric antimicrobials will be continued, pending finalized infectious workup. 4. Acute on chronic kidney disease Most likely prerenal in etiology in the setting of multifactorial shock and respiratory failure. Continue vasopressor support for now. Continue to monitor urine output. No current indication for renal replacement therapy. 5. History of coronary artery disease/anemia/hypertension/hyperlipidemia Complicates care, management, recovery and prognosis. Continue to hold home antihypertensives. Agree with transfusion of blood products to maintain a hemoglobin at or above 7 g/dL. Continue PPI therapy as ordered. TIME: 33 minutes of critical care time, independent of procedures, was spent addressing the patient's acute hypoxemic respiratory failure, cardiac arrest with ROSC, complete heart block, multifactorial shock, acute kidney injury, review of all data and collaboration with the care team. Subjective Subjective The patient was seen and examined at the bedside this morning. Events from the last 24 hours have been reviewed. The patient is currently afebrile and hemodynamically stable on Levophed at 1 mcg/min. FiO2 has been weaned to 40%. The patient is currently documented to be overall net +8.7 L for the hospitalization. He remains sedated on fentanyl. White blood cell count this morning was noted to be 13,000. Hemoglobin has improved to 7.7 g/dL. Creatinine has improved to 2.9. There are tentative plans for permanent pacemaker placement later today. Objective Data Objective Data The patient's most recent lab work, culture data and imaging studies have all been personally reviewed. Surface echocardiogram demonstrated normal LV size with an ejection fraction of 50%. Respiratory viral panel was negative. Blood, urine and sputum cultures have not demonstrated any growth to date. Vital Signs: Vital Signs Temp Pulse Resp BP Pulse Ox O2 Del Method O2 Flow Rate 98.8 F 81 16 122/43 H 97 Mechanical Ventilator 60 07/18/24 06:00 07/18/24 06:00 07/18/24 06:00 07/18/24 06:45 07/18/24 06:00 07/18/24 06:00 07/17/24 14:32 FiO2 40 07/18/24 06:00 Oxygen Flow Rate (L/min) 60 Oxygen Delivery Method Mechanical Ventilator Weight: 197 lb 5.019 oz Body Mass Index (BMI) 28.2 Intake & Output: Intake and Output for Last 24 Hours 07/16/24 07/17/24 07/18/24 23:59 23:59 23:59 Intake Total 6996.22 / 7084.92 2945.64 / 2968.92 1239.90 / 1239.90 Output Total 665 / 665 1650 / 1650 350 / 350 Balance 6331.22 / 6419.92 1295.64 / 1318.92 889.90 / 889.90 Lab / Micro Data Attestation: I reviewed the patient's lab results. 07/18/24 04:10 07/18/24 04:10 Labs: Laboratory Results - last 24 hr 07/17/24 09:40: Blood Type A POSITIVE, Antibody Screen NEGATIVE, Crossmatch See Detail 07/18/24 04:10: WBC 12.9 H, RBC 2.51 L, Hgb 7.7 L, Hct 23.4 L, MCV 93.2, MCH 30.7, MCHC 32.9, RDW Std Deviation 54.2 H, RDW Coeff of [place] 16.0 H, Plt Count 175, MPV 10.2, Immature Gran % (Auto) 0.900, Neut % (Auto) 84.3 H, Lymph % (Auto) 5.2 L, [place] % (Auto) 8.7, Eos % (Auto) 0.7, Baso % (Auto) 0.2, Absolute Neuts (auto) 10.9 H, Absolute Lymphs (auto) 0.67 L, Nucleated RBC % 0.2, Sodium 145, Potassium 3.8, Chloride 113 H, Carbon Dioxide 24.0, Anion Gap 8, BUN 66 H, Creatinine 2.99 H, Estim Creat Clear Calc 19.12, Est GFR (MDRD) Af Amer 26 L, Est GFR (MDRD) Non-Af 21 L, BUN/Creatinine Ratio 22.1 H, Glucose 127 H, Calcium 7.9 L, Phosphorus 3.8, Magnesium 2.4, Random Vancomycin 11.8 Micro: Microbiology 07/17/24 11:25 Mucosa - Nasopharyngeal Coronavirus COVID-19 PCR - Final 07/16/24 15:40 Mucosa - Nose Respiratory Panel (PCR) - Final 07/16/24 05:20 Urine Catheter - Reyes Legionella Antigen - Final 07/16/24 05:20 Urine Catheter - Reyes Streptococcus pneumoniae Antigen (M - Final ABG Data ABG results: ABG 07/17/24 11:26 Specimen Type ART Sample Site Art Line pH 7.45 Bicarbonate Actual 21.9 L Total CO2 23 Base Excess -2 O2 Saturation 99 O2 % 60.0 ABG pCO2 31.5 L ABG pO2 138 H Respiration Rate 16 O2 Delivery Device Adult Vent Vent Mode AC Tidal Volume 450.0 POC PEEP 10 Radiography Diagnostic Testing: Radiology Impression Echocardiogram 07/16/24 03:40 Interpretation Summary Normal LV size. The left ventricular ejection fraction is 50 %. Mild focal aortic valve calcification. Mild (1+) aortic valve insufficiency. Calcified aortic root. Ordering Physician: Kalpesh Suggs Referring Physician: Keith Bagley Performed By: Liz Sung RDCS Physical Exam Const Constitutional Narrative: Intubated, sedated and mechanically ventilated. No ventilator dyssynchrony noted. HEENT normocephalic and head/scalp atraumatic Mouth: endotracheal tube in place and OG tube in place Eyes conjunctivae normal and no scleral icterus Neck supple General: trachea midline and CVC in place Chest inspection of chest normal Resp normal respiratory effort Auscultation: Negative for rales, rhonchi or wheezes Cardio regular rate and regular rhythm GI normal to inspection, nondistended, normoactive bowel sounds Extremity General Extremity: edema bilateral lower extremity; Negative for clubbing Skin no rashes or lesions noted Neuro Sensorium / Orientation: sedated on vent Charges/Coding Procedures Hospitalists Procedures: 47395 Critical Care 1st Hr
--- NOTE | 2024-07-18 08:45 | PCM.PN.HOSP ---
Subjective Subjective Intubated and sedated possible permanent pacemaker placement today Objective Data Objective Data Vital Signs: Vital Signs Temp Pulse Resp BP Pulse Ox O2 Del Method O2 Flow Rate 98.6 F 82 17 124/55 H 97 Mechanical Ventilator 60 07/18/24 07:30 07/18/24 08:00 07/18/24 08:00 07/18/24 08:00 07/18/24 08:00 07/18/24 08:00 07/17/24 14:32 FiO2 40 07/18/24 08:00 Oxygen Flow Rate (L/min) 60 Oxygen Delivery Method Mechanical Ventilator Weight: 197 lb 5.019 oz Body Mass Index (BMI) 28.2 Intake & Output: Intake and Output for Last 24 Hours 07/17/24 07/18/24 07/19/24 03:59 03:59 03:59 Intake Total 5125.72 / 5156.10 2735.18 / 2764.58 1327.30 / 1327.30 Output Total 665 / 665 1650 / 1650 350 / 350 Balance 4460.72 / 4491.10 1085.18 / 1114.58 977.30 / 977.30 Lab / Micro Data 07/18/24 04:10 07/18/24 04:10 Labs: Laboratory Results - last 24 hr 07/17/24 09:40: Blood Type A POSITIVE, Antibody Screen NEGATIVE, Crossmatch See Detail 07/18/24 04:10: WBC 12.9 H, RBC 2.51 L, Hgb 7.7 L, Hct 23.4 L, MCV 93.2, MCH 30.7, MCHC 32.9, RDW Std Deviation 54.2 H, RDW Coeff of [place] 16.0 H, Plt Count 175, MPV 10.2, Immature Gran % (Auto) 0.900, Neut % (Auto) 84.3 H, Lymph % (Auto) 5.2 L, [place] % (Auto) 8.7, Eos % (Auto) 0.7, Baso % (Auto) 0.2, Absolute Neuts (auto) 10.9 H, Absolute Lymphs (auto) 0.67 L, Nucleated RBC % 0.2, Sodium 145, Potassium 3.8, Chloride 113 H, Carbon Dioxide 24.0, Anion Gap 8, BUN 66 H, Creatinine 2.99 H, Estim Creat Clear Calc 19.12, Est GFR (MDRD) Af Amer 26 L, Est GFR (MDRD) Non-Af 21 L, BUN/Creatinine Ratio 22.1 H, Glucose 127 H, Calcium 7.9 L, Phosphorus 3.8, Magnesium 2.4, Random Vancomycin 11.8 Micro: Microbiology 07/16/24 05:10 Blood Culture (Wb) - Femoral Artery Blood Culture - Preliminary No growth in 48 hours. 07/16/24 06:05 Blood Culture (Wb) - Line Draw Blood Culture - Preliminary No growth in 48 hours. 07/16/24 15:40 Sputum, Tracheal Aspirate Respiratory Culture - Preliminary Appears to be normal respiratory seb. Further studies to follow. 07/16/24 05:20 Urine Catheter - Reyes Urine Culture - Final Culture exhibits no growth. 07/17/24 11:25 Mucosa - Nasopharyngeal Coronavirus COVID-19 PCR - Final 07/16/24 15:40 Mucosa - Nose Respiratory Panel (PCR) - Final 07/16/24 05:20 Urine Catheter - Reyes Legionella Antigen - Final 07/16/24 05:20 Urine Catheter - Reyes Streptococcus pneumoniae Antigen (M - Final ABG Data ABG results: ABG 07/17/24 11:26 Specimen Type ART Sample Site Art Line pH 7.45 Bicarbonate Actual 21.9 L Total CO2 23 Base Excess -2 O2 Saturation 99 O2 % 60.0 ABG pCO2 31.5 L ABG pO2 138 H Respiration Rate 16 O2 Delivery Device Adult Vent Vent Mode AC Tidal Volume 450.0 POC PEEP 10 Radiography Diagnostic Testing: Radiology Impression Echocardiogram 07/16/24 03:40 Interpretation Summary Normal LV size. The left ventricular ejection fraction is 50 %. Mild focal aortic valve calcification. Mild (1+) aortic valve insufficiency. Calcified aortic root. Ordering Physician: Kalpesh Suggs Referring Physician: Keith Bagley Performed By: Liz Sung RDCS Physical Exam Const General Appearance: intubated and patient mechanically ventilated HEENT normocephalic Eyes PERRL and conjunctivae normal Neck supple and no JVD Resp normal respiratory effort, no retractions and no use of accessory muscles Auscultation: Negative for crackles, rales, rhonchi or wheezes Cardio regular rate, regular rhythm, S1 normal heart sound, S2 normal heart sound and no murmurs GI soft to palpation and non-distended; Negative for hepatosplenomegaly Extremity no clubbing, cyanosis or edema Skin no rashes or lesions noted Neuro Sensorium / Orientation: sedated on vent Psych Appearance: intubated Assessment & Plan Assessment/Plan (1) Cardiogenic shock: PLAN: Plan #1. Acute hypoxic respiratory failure secondary to acute cardiopulmonary arrest with ROSC secondary to acute third-degree heart block with significant cardiogenic shock however does have significant leukocytosis with left shift thus some concern for possible infectious component, per current evaluation possibly bilateral lower lobe pneumonia of unclear organism, possibly aspiration component given respiratory failure and arrest as noted: Patient initial presentation with complete heart block with rate in the 20s, temporary pacer placed, heart rate improved, initiated on dopamine however required second vasopressor norepinephrine with central line in place per general surgery, continue intubated and sedated status, maintain on IV PPI, judicious fluids only given history, trend lactic acid per facility protocol, monitor acute kidney injury and liver injury given shock component, trending cardiac enzymes with initial 31-> 73-> 290 not surprising in the setting of cardiopulmonary arrest with CPR with ROSC, magnesium 2.1, maintain on IV vancomycin and Zosyn with MRSA screen requested empirically, will request sputum culture, full respiratory viral panel, urine antigens, procalcitonin, 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 07/17/2024: Possible permanent pacemaker if blood cultures remain negative and continues to have renal improvement in respiratory improvement. Currently being temporarily paced 07/18/2024: Blood cultures and urine cultures are negative #2. Acute kidney injury on CKD stage IV based on previous GFR trending secondary to #1, shock: Admission BUN/Cr 82/3.45 prior baseline creatinine noted to be 2.3-2.6 maximum. ED presentation with chest x-ray with mild bilateral airspace disease with small pleural effusions, urinalysis with no obvious evidence infection, blood culture x 2 and urine culture pending per ED given presentation and concern for possibility of overload quickly with aggressive fluids, continue judicious fluids only as needed, defer any nephrotoxic medications, continue vasopressors as noted above, continue to trend CMP. If not improving, worsening low threshold to involve nephrology if remains full code. 07/17/2024: Renal function staying stable continue with pressors 07/18/2024: Renal function is improving to 2.99 today #3. Acute hyperbilirubinemia, transaminitis secondary to #1, shock: Admission CMP with T. bili 1.10, AST/ALT 1084/980, alk phos 282, continue treatments and evaluation as noted above #1, most recent repeat same day 07/16/2024 T. bili 1.30, AST/ALT 1136/948, alk phos 268, continue to trend. #4. Combined HFp/rEF: Noted history, cardiology following, most recent previous echo noted 05/08/2024 with LVEF 35%, normal LV size, stage II diastolic dysfunction, PASP 50 mmHg, plan repeat echocardiogram as noted, currently given shock liver holding aspirin therapy, resume once clinically appropriate, additionally holding statin and hypertensive regimen on pressor therapies as noted, cautiously administering fluids given underlying history. #5. Abnormal TSH: TSH 8.390, obtained in the acute setting, free T4 1.67, given his current presentation #1 would strongly recommend at this time only planning to continue repeat thyroid function studies outpatient once clinically resolved and improved. #6. History CVA/TIA: As noted above temporally holding aspirin and statin given shock liver, holding hypertensive regimen given hypotensive presentation requiring pressor therapies as noted, resume once clinically appropriate. #7. CAD/PAD, carotid disease: Status post CABG, left-sided endarterectomy, unclear peripheral interventions, as noted above temporally holding aspirin and statin given shock liver, holding hypertensive regimen given hypotensive presentation requiring pressor therapies as noted, resume once clinically appropriate. #8. Chronic macrocytic anemia: Admission hemoglobin 9.2, MCV 98, earlier in the admission, repeat 7.8, will continue to trend, previous baseline primarily 8-9, continue to trend. #9. Hypertension: Given presentation requiring 2 pressor therapies although dopamine primarily for significant complete heart block presentation, will defer all hypertensive medication. #10. Hyperlipidemia: Given shock liver will temporally hold statin therapy, resume once clinically appropriate. #11. Former tobacco use: Encourage continued tobacco cessation. #12. GI prophylaxis/DVT prophylaxis: IV PPI, heparin cautiously given shock liver. Charges/Coding Visit Charges Inpatient E&M: 77851 Subs Hosp L2
[2024-07-18] MEDS: Pantoprazole Sodium 40 MG in 0.9% Normal Saline (100mL MB+) 100 ML 330 MG IV (10:07)
[2024-07-18] MEDS: Chlorhexidine 15 ML PO ×2 (10:10→20:51)
[2024-07-18] MEDS: Piperacil/Tazobactam 3.375 GM in 0.9% Normal Saline (50mL MB+) 50 ML IV ×2 (11:12→20:51)
--- NOTE | 2024-07-18 12:07 | NURSING ---
Patient left unit to matlab developer, report given to DESTINEE Virgen. All questions and concerns answered.
--- NOTE | 2024-07-18 13:30 | CL.IE_ITS ---
Patient: FEI ROGERS Study Date: 07/18/2024 Performing: Keith Bagley MD : [id number] Age: 89 Gender: male PROCEDURES PERFORMED [id number]-([id number])INITIAL PACER INSERT+VENTRICULAR LEAD INDICATIONS PROCEDURE DETAILS The patient was brought to the Catheterization Lab in the postabsorptive nonsedated state. Informed consent was obtained prior to the procedure. Local anesthetic was given subcutaneously to the left subclavian region with Lidocaine 2%. Access was achieved and a guidewire was advanced through the left subclavian vein and parked into SVC region.. Incision was made to the left upper chest. PPM ventricular lead was testing performed. PPM ventricular lead testing performed. The Ventricular PM lead sutured in place with 2-0 [place]k. Device pocket was irrigated with antibiotic. The patient tolerated the procedure well. Estimated Blood Loss: < 10 mls IMPLANTED / EX-PLANTED DEVICES IMPLANTED DEVICE(S): PPM Ventricular lead - Bore Miner Operator: Bex, Model # [id number] , Serial # [id number], 59cm length. PPM Generator - Bore Miner Operator: Bex, Model # [id number] , Serial # [id number], [employer] SR MRI. DEVICE PARAMETERS VENTRICULAR LEAD PARAMETERS: Current- 0.4 (mA) @ 0.4ms impedence- 964 (OHMS) 10V test, no diaphragmatic capture DEVICE PARAMETERS: Mode- VVI Lower rate- 80 CONCLUSIONS / RECOMMENDATIONS Device Conclusions: Successful implantation of a single chamber pacemaker Device Recommendations: Follow up with Primary Care Physician PROCEDURE MEDICATIONS Oxygen: 60 % FiO2 via ventilator. See Resp Record for Settings Oxygen: 80 % FiO2 via ventilator. See Resp Record for Settings Ancef 2 Gm IV @ 07/18/2024 12:42:38 Signed By Keith Bagley MD On 07/18/2024 13:29:44 Keith Bagley MD
--- NOTE | 2024-07-18 13:37 | PN.CARD_ITS ---
Subjective Subjective Patient seen and evaluated. Permanent pacemaker placed today Objective Data Vital Signs: Vital Signs Temp Pulse Resp BP Pulse Ox O2 Del Method O2 Flow Rate 98.7 F 81 20 H 120/42 L 94 Mechanical Ventilator 60 07/18/24 12:00 07/18/24 12:00 07/18/24 12:00 07/18/24 12:00 07/18/24 12:00 07/18/24 12:00 07/17/24 14:32 FiO2 45 07/18/24 12:00 Oxygen Flow Rate (L/min) 60 Oxygen Delivery Method Mechanical Ventilator Weight: 197 lb 5.019 oz Body Mass Index (BMI) 28.2 Intake & Output: Intake and Output for Last 24 Hours 07/16/24 07/17/24 07/18/24 23:59 23:59 23:59 Intake Total 6996.22 / 7084.92 2945.64 / 2968.92 1704.42 / 1704.42 Output Total 665 / 665 1650 / 1650 600 / 600 Balance 6331.22 / 6419.92 1295.64 / 1318.92 1104.42 / 1104.42 Lab / Micro Data 07/18/24 04:10 07/18/24 04:10 Labs: Laboratory Results - last 24 hr 07/17/24 09:40: Crossmatch See Detail 07/18/24 04:10: WBC 12.9 H, RBC 2.51 L, Hgb 7.7 L, Hct 23.4 L, MCV 93.2, MCH 30.7, MCHC 32.9, RDW Std Deviation 54.2 H, RDW Coeff of [place] 16.0 H, Plt Count 175, MPV 10.2, Immature Gran % (Auto) 0.900, Neut % (Auto) 84.3 H, Lymph % (Auto) 5.2 L, [place] % (Auto) 8.7, Eos % (Auto) 0.7, Baso % (Auto) 0.2, Absolute Neuts (auto) 10.9 H, Absolute Lymphs (auto) 0.67 L, Nucleated RBC % 0.2, Sodium 145, Potassium 3.8, Chloride 113 H, Carbon Dioxide 24.0, Anion Gap 8, BUN 66 H, Creatinine 2.99 H, Estim Creat Clear Calc 19.12, Est GFR (MDRD) Af Amer 26 L, E st GFR (MDRD) Non-Af 21 L, BUN/Creatinine Ratio 22.1 H, Glucose 127 H, Calcium 7.9 L, Phosphorus 3.8, Magnesium 2.4, Random Vancomycin 11.8 Micro: Microbiology 07/16/24 15:40 Sputum, Tracheal Aspirate Gram Stain - Final 07/16/24 15:40 Sputum, Tracheal Aspirate Respiratory Culture - Preliminary Appears to be normal respiratory seb. Further studies to follow. 07/16/24 05:10 Blood Culture (Wb) - Femoral Artery Blood Culture - Preliminary No growth in 48 hours. 07/16/24 06:05 Blood Culture (Wb) - Line Draw Blood Culture - Preliminary No growth in 48 hours. 07/16/24 05:20 Urine Catheter - Reyes Urine Culture - Final Culture exhibits no growth. 07/17/24 11:25 Mucosa - Nasopharyngeal Coronavirus COVID-19 PCR - Final Cardiology Labs/Tests 07/18/24 04:10: WBC 12.9 H, RBC 2.51 L, Hgb 7.7 L, Hct 23.4 L, MCV 93.2, MCH 30.7, MCHC 32.9, Plt Count 175, MPV 10.2, Immature Gran % (Auto) 0.900, Neut % (Auto) 84.3 H, Lymph % (Auto) 5.2 L, [place] % (Auto) 8.7, Eos % (Auto) 0.7, Baso % (Auto) 0.2, Absolute Neuts (auto) 10.9 H, Nucleated RBC % 0.2, Sodium 145, Potassium 3.8, Chloride 113 H, Carbon Dioxide 24.0, Anion Gap 8, BUN 66 H, C reatinine 2.99 H, Est GFR (MDRD) Af Amer 26 L, Est GFR (MDRD) Non-Af 21 L, B UN/Creatinine Ratio 22.1 H, Glucose 127 H, Calcium 7.9 L, Phosphorus 3.8, Magnesium 2.4 Rhythm: EKG: ECHO: Stress Test: Cardiac Cath: PCI: CT Surgery: Holter monitor: EPS: PPM: CXR: Chest CT Scan: Radiography Diagnostic Testing: Radiology Impression Echocardiogram 07/16/24 03:40 Interpretation Summary Normal LV size. The left ventricular ejection fraction is 50 %. Mild focal aortic valve calcification. Mild (1+) aortic valve insufficiency. Calcified aortic root. Ordering Physician: Kalpesh Suggs Referring Physician: Keith Bagley Performed By: Liz Sung RDCS Physical Exam Narrative Patient intubated and communicative uncooperative HEENT hearing grossly normal bilaterally Head and Scalp: atraumatic Eyes EOMs intact bilaterally Neck General: normal visual inspection Chest inspection of chest normal and palpation of chest normal Resp normal respiratory effort Auscultation: clear to auscultation bilaterally Cardio regular rate, regular rhythm, S1 normal heart sound and S2 normal heart sound Jugular Venous Distention: JVD GI normal to inspection, nondistended, normoactive bowel sounds Extremity normal capillary refill and no pedal edema Peripheral Pulses: Yes pulses 2+ throughout and femoral pulses present Skin no rashes or lesions noted Assessment & Plan Assessment/Plan (1) Cardiopulmonary arrest with successful resuscitation: PLAN: Will continue supportive measures as per critical care and hospitalist. (2) Complete heart block by electrocardiogram: PLAN: Patient presents with complete heart block Permanent pacemaker placed single-chamber successfully * Appears to be functioning well. Heart rate in the 80s. Blood pressure on no pressor agents is noted to be 130 systolic. * The plan is to continue the current supportive therapy * The above was explained thoroughly to the patient's 8 relatives in the waiting area . (3) CHF (congestive heart failure): QUALIFIERS: Heart failure type: combined systolic and diastolic H eart failure chronicity: acute on chronic Qualified Code(s): I50.43 - Acute on chronic combined systolic (congestive) and diastolic (congestive) heart failure PLAN: Echocardiogram demonstrated an ejection fraction of approximately 50% Will continue with supportive measures (4) Atherosclerotic heart disease of [place] coronary artery without angina pectoris: QUALIFIERS: [place] vs. transplanted heart: [place] heart Qualified Code(s): I25.10 - Atherosclerotic heart disease of [place] coronary artery without angina pectoris PLAN: Patient has a known history of coronary artery disease status post coronary bypass surgery. (5) Paroxysmal atrial fibrillation: PLAN: Patient has a history of atrial fibrillation with a left bundle branch block. Will hold off on Eliquis for now (6) Left ventricular systolic dysfunction: PLAN: Patient was noted to have left ventricular systolic dysfunction estimated ejection fraction of 50%. Will optimize medical therapy. (7) CKD (chronic kidney disease) stage 4, GFR 15-29 ml/min: PLAN: Patient has known chronic kidney disease.
--- NOTE | 2024-07-18 14:00 | NURSING ---
Respiratory therapy notified that patients sats starting to drop into the 80s. Patients Fi02 increased several times to 100% and suctioned once.
--- NOTE | 2024-07-18 14:05 | NURSING ---
Patient returned to unit
[2024-07-18 14:43] LABS: Allen Test Positive; Base Excess -1 mmol/L (-2 to +2); Blood Gas Specimen Type ART; Mode AC; O2 Delivery Device Adult Vent; PEEP 5; PO2 53 mmHG (75-100); RR 16; SITE L Radial; SO2 88 % (95-99); Total Carbon Dioxide 25 mmol/L; pH 7.42 (7.35-7.45)
[2024-07-18] MEDS: 0.9% Normal Saline (1000mL) 1,000 ML 60 ML IV (14:44)
--- NOTE | 2024-07-18 15:15 | RAD_ITS ---
INDICATION: hypoxia EXAMINATION/TECHNIQUE: X-RAY - XR Chest 1 View COMPARISON: Prior study dated: 07/17/2024 FINDINGS: LINES/DEVICES: Endotracheal tube, nasogastric tube and right internal jugular central venous catheter in stable position. New left-sided single chamber cardiac pacer device is seen. LUNGS: Patchy opacities/infiltrates bilaterally essentially unchanged since the prior exam. Small bilateral pleural effusions. MEDIASTINUM AND CARDIOVASCULAR STRUCTURES: Stable cardiomediastinal silhouette. BONES AND SOFT TISSUES: Unchanged. RAD/Chest 1 View (Portable) IMPRESSION: 1. New left-sided cardiac pacer device. 2. Otherwise no significant change. Electronically Signed: Stephan Ingram MD at 15:46 EST ,
--- NOTE | 2024-07-18 16:17 | NURSING ---
Right groin dressing CDI, no signs of a hematoma- previous temporary pacer site. Site assessed at 1400, 1415, 1430, 1445, 1500, 1530 and 1600 with no changes.
[2024-07-18] MEDS: Heparin Injection (Vial) 5,000 UNIT/ML VIAL 5000 UNIT SC (20:52)
[2024-07-19] VITALS (38 sets, daily range): BP systolic 109–173; BP diastolic 41–74; PULSE 70–82; RESP 14–29; TEMP 37.3–37.6; O2SAT 90–98; BMI 28.3
[2024-07-19 02:47] LABS: Absolute Lymphocyte Count 0.58 X10^3/uL (0.83-4.51); Absolute Neutrophil Count 8.2 X10^3/uL (2.0-7.7); Basophil# 0.01 X10^3/uL; Basophil% 0.1 % (0-1); Eosinophil# 0.06 X10^3/uL; Eosinophils% 0.6 % (0-5); Hematocrit 24.5 % (40-54); Hemoglobin 7.7 g/dL (13.0-16.5); Lymphocyte # 0.58 X10^3/ul (0.83-4.51); Mean Corp Hgb Conc 31.4 g/dL (32-36); Mean Corpuscular Hgb 30.2 pg (27.0-32.0); Mean Corpuscular Volume 96.1 fL (80-94); Mean Platelet Vol. 9.9 fl (6.2-12.0); Monocyte# 0.71 X10^3/uL; Monocyte% 7.4 % (0-10); NRBC Flagged by Analyzer 0 % (0-5); Neutrophil # 8.19 X10^3/uL (2.7-7.7); Neutrophil % 85.5 % (47-70); POSITIVE DIFFERENTIAL YES; Platelet Count 139 K/mm3 (150-450); RBC Distribution Width CV 15.9 % (11.6-14.6); RBC Distribution Width SD 55.4 fl (35.1-43.9); Red Blood Count 2.55 M/mm3 (4.6-6.2); White Blood Count 9.6 K/mm3 (4.4-11.0)
[2024-07-19 02:57] LABS: International Normalized Ratio 1.5; Partial Thromboplast Time 33.8 Seconds (24.1-36.2); Prothrombin Time (Protime)PT. 18.2 SECONDS (11.7-14.9)
[2024-07-19 03:02] LABS: Anion Gap 7 (5-15); BUN 57 mg/dL (7-18); Calcium,Total 8.1 mg/dL (8.5-10.1); Chloride 115 mmol/L (98-107); Creatinine, Serum 2.72 mg/dL (0.70-1.30); EST Glomerular Filtration Rate 24 mL/min (>60); Est Glom Filt Rate - Afr Amer 29 mL/min (>60); Estimated Creatinine Clearance 21.18 ml/min; Glucose 111 mg/dL (74-106); Magnesium 2.3 mg/dL (1.6-2.6); Phosphorus 3.8 mg/dL (2.5-4.9); Potassium 3.5 mmol/L (3.5-5.1); Sodium Level 147 mmol/L (136-145)
[2024-07-19] MEDS: fentaNYL drip 100 ML 5 MCG CONT INF (04:00)
[2024-07-19] MEDS: CHLORHEXIDINE GLUC 2% CLOTH 1 EACH TOWELETTE TOPICAL (04:21)
[2024-07-19] MEDS: 0.9% Saline Lock 10 ML Syringe IV (04:21)
--- NOTE | 2024-07-19 04:34 | NURSING ---
Fentanyl gtt decreased to 50 mcg/hr for spontaneous awakening trial.
[2024-07-19] MEDS: Heparin Injection (Vial) 5,000 UNIT/ML VIAL 5000 UNIT SC ×3 (05:20→21:27)
--- NOTE | 2024-07-19 05:35 | RAD_ITS ---
EXAM: XR CHEST, 1 VIEW CLINICAL INDICATION: s/p pacer placement -- please make sure patient HOB is up 30 degrees TECHNIQUE: Frontal view of the chest. COMPARISON: 07/18/2024. FINDINGS: LUNGS AND PLEURAL SPACES: AC opacities in the lungs centrally similar to the prior exam may be due to edema. No pneumothorax. No change bilateral pleural effusions. HEART: Status post coronary artery bypass graft. MEDIASTINUM: Central airways and mediastinal contour are unremarkable. BONES/JOINTS: Sternal wires. No acute fracture. SOFT TISSUES: Unremarkable. TUBES, LINES AND DEVICES: Endotracheal tube tip is 2.1 cm above the jessica. Right-sided chest tube tip is in the upper right atrium unchanged. No change pacemaker. RAD/Chest 1 View (Portable) IMPRESSION: 1. No change pacemaker. 2. No change bilateral pleural effusions. 3. AC opacities in the lungs centrally similar to the prior exam may be due to edema. 4. Endotracheal tube tip is 2.1 cm above the jessica. 5. Right-sided chest tube tip is in the upper right atrium unchanged. 6. No pneumothorax. Electronically Signed: Justo Mcneill MD at 8:52 EST ,
--- NOTE | 2024-07-19 06:38 | PCM.PN.INT ---
Assessment & Plan Assessment/Plan (1) Cardiogenic shock: (2) Septic shock: (3) Cardiopulmonary arrest with successful resuscitation: (4) Complete heart block by electrocardiogram: PLAN: Plan RECOMMENDATIONS: 1. Continue assist-control mode of mechanical ventilation. Continue to wean FiO2 and PEEP as tolerated. 2. Continue to monitor H&H and transfuse if hemoglobin drops below 7 g/dL. 3. Empiric antimicrobials. 4. Continue PPI therapy. 5. Okay to initiate tube feeding today from my perspective. 6. Proceed with repeat spontaneous awakening and breathing trial again tomorrow. IMPRESSIONS: 1. Acute hypoxemic respiratory failure in the setting of cardiac arrest with ROSC The patient was intubated as a consequence of sustaining a cardiac arrest in the setting of acute third-degree heart block and possible cardiogenic shock. The patient will be continued on assist-control mode of mechanical ventilation. FiO2 and PEEP will be weaned as tolerated. Plan to continue current supportive care, including antimicrobials. The patient will be maintained on fentanyl for sedation. Plan to repeat spontaneous awakening and breathing trial again tomorrow. Okay to initiate tube feeding for nutritional support. 2. Complete heart block/history of paroxysmal atrial fibrillation The patient is status post permanent pacemaker placement. Cardiology is following to assist with medical management. 3. Multifactorial shock Resolved. Clinical considerations include cardiogenic versus septic etiologies. Empiric antimicrobials will be continued, pending finalized infectious workup. 4. Acute on chronic kidney disease Improving. Most likely prerenal in etiology in the setting of multifactorial shock and respiratory failure. Continue to monitor urine output. No current indication for renal replacement therapy. 5. History of coronary artery disease/anemia/hypertension/hyperlipidemia Complicates care, management, recovery and prognosis. Continue to hold home antihypertensives. Agree with transfusion of blood products to maintain a hemoglobin at or above 7 g/dL. Continue PPI therapy as ordered. TIME: 32 minutes of critical care time, independent of procedures, was spent addressing the patient's acute hypoxemic respiratory failure, cardiac arrest with ROSC, complete heart block, multifactorial shock, acute kidney injury, review of all data and collaboration with the care team. Subjective Subjective The patient was seen and examined at the bedside this morning. Events from the last 24 hours have been reviewed. The patient is currently afebrile, hemodynamically stable and maintaining appropriate oxygen saturations on assist-control mode mechanical ventilation with an FiO2 requirement of 45%. The patient was able to be successfully weaned off of Levophed yesterday. In addition, he underwent successful permanent pacemaker placement. The patient is documented to be overall net +8.8 L for the hospitalization. White blood cell count is normal. Hemoglobin is stable at 7.7 g/dL. Creatinine is improved at 2.72. The patient failed his spontaneous breathing trial this morning due to frequent apneic episodes, despite being off of his sedation. Objective Data Objective Data The patient's most recent lab work, culture data and imaging studies have all been personally reviewed. Surface echocardiogram demonstrated normal LV size with an ejection fraction of 50%. Respiratory viral panel was negative. Blood, urine and sputum cultures have not demonstrated any growth to date. Vital Signs: Vital Signs Temp Pulse Resp BP Pulse Ox O2 Del Method O2 Flow Rate 99.1 F 81 16 116/50 L 97 Mechanical Ventilator 60 07/19/24 04:00 07/19/24 06:00 07/19/24 06:00 07/19/24 06:00 07/19/24 06:00 07/19/24 06:00 07/17/24 14:32 FiO2 45 07/19/24 06:00 Oxygen Flow Rate (L/min) 60 Oxygen Delivery Method Mechanical Ventilator Weight: 198 lb 3.129 oz Body Mass Index (BMI) 28.3 Intake & Output: Intake and Output for Last 24 Hours 07/17/24 07/18/24 07/19/24 23:59 23:59 23:59 Intake Total 2945.64 / 2968.92 2648.25 / 2668.25 203.67 / 203.67 Output Total 1650 / 1650 1200 / 1200 400 / 400 Balance 1295.64 / 1318.92 1448.25 / 1468.25 -196.33 / -196.33 Lab / Micro Data Attestation: I reviewed the patient's lab results. 07/19/24 02:30 07/19/24 02:30 Labs: Laboratory Results - last 24 hr 07/17/24 09:40: Crossmatch See Detail 07/19/24 02:30: WBC 9.6, RBC 2.55 L, Hgb 7.7 L, Hct 24.5 L, MCV 96.1 H, MCH 30.2, MCHC 31.4 L, RDW Std Deviation 55.4 H, RDW Coeff of [place] 15.9 H, Plt Count 139 L, MPV 9.9, Immature Gran % (Auto) 0.400, Neut % (Auto) 85.5 H, Lymph % (Auto) 6.0 L, [place] % (Auto) 7.4, Eos % (Auto) 0.6, Baso % (Auto) 0.1, Absolute Neuts (auto) 8.2 H, Absolute Lymphs (auto) 0.58 L, Nucleated RBC % 0, PT 18.2 H, INR 1.5, APTT 33.8, Sodium 147 H, Potassium 3.5, Chloride 115 H, Carbon Dioxide 24.0, Anion Gap 7, BUN 57 H, Creatinine 2.72 H, Estim Creat Clear Calc 21.18, Est GFR (MDRD) Af Amer 29 L, Est GFR (MDRD) Non-Af 24 L, BUN/Creatinine Ratio 21.0 H, Glucose 111 H, Calcium 8.1 L, Phosphorus 3.8, Magnesium 2.3 Micro: Microbiology 07/16/24 15:40 Sputum, Tracheal Aspirate Gram Stain - Final 07/16/24 15:40 Sputum, Tracheal Aspirate Respiratory Culture - Preliminary Appears to be normal respiratory seb. Further studies to follow. 07/16/24 05:10 Blood Culture (Wb) - Femoral Artery Blood Culture - Preliminary No growth in 48 hours. 07/16/24 06:05 Blood Culture (Wb) - Line Draw Blood Culture - Preliminary No growth in 48 hours. 07/16/24 05:20 Urine Catheter - Reyes Urine Culture - Final Culture exhibits no growth. 07/17/24 11:25 Mucosa - Nasopharyngeal Coronavirus COVID-19 PCR - Final 07/16/24 15:40 Mucosa - Nose Respiratory Panel (PCR) - Final 07/16/24 05:20 Urine Catheter - Reyes Legionella Antigen - Final 07/16/24 05:20 Urine Catheter - Reyes Streptococcus pneumoniae Antigen (M - Final ABG Data ABG results: ABG 07/18/24 14:40 Specimen Type ART Sample Site L Radial pH 7.42 Bicarbonate Actual 24.0 Total CO2 25 Base Excess -1 O2 Saturation 88 L O2 % 50.0 ABG pCO2 37.0 ABG pO2 53 L Giovanni Test Positive Respiration Rate 16 O2 Delivery Device Adult Vent Vent Mode AC Tidal Volume 450.0 POC PEEP 5 Radiography Diagnostic Testing: Radiology Impression Chest X-Ray 07/18/24 15:15 IMPRESSION: 1. New left-sided cardiac pacer device. 2. Otherwise no significant change. Electronically Signed: Stephan Ingram MD at 15:46 EST , Physical Exam Const Constitutional Narrative: Intubated, sedated and mechanically ventilated. No ventilator dyssynchrony noted. HEENT normocephalic and head/scalp atraumatic Mouth: endotracheal tube in place and OG tube in place Eyes conjunctivae normal and no scleral icterus Neck supple General: trachea midline and CVC in place Chest inspection of chest normal Resp normal respiratory effort Auscultation: Negative for rales, rhonchi or wheezes Cardio regular rate and regular rhythm GI normal to inspection, nondistended, normoactive bowel sounds Extremity General Extremity: edema bilateral lower extremity; Negative for clubbing Skin no rashes or lesions noted Neuro Sensorium / Orientation: sedated on vent Charges/Coding Procedures Hospitalists Procedures: [id number] Critical Care 1st Hr
[2024-07-19] MEDS: 0.9% Normal Saline (1000mL) 1,000 ML 60 ML IV ×2 (07:22→23:46)
--- NOTE | 2024-07-19 09:14 | PCM.PN.HOSP ---
Subjective Subjective Intubated and sedated, had a permanent pacemaker placed yesterday Objective Data Objective Data Vital Signs: Vital Signs Temp Pulse Resp BP Pulse Ox O2 Del Method O2 Flow Rate 99.1 F 80 16 133/52 H 96 Mechanical Ventilator 60 07/19/24 04:00 07/19/24 07:00 07/19/24 07:00 07/19/24 07:00 07/19/24 07:00 07/19/24 08:00 07/17/24 14:32 FiO2 45 07/19/24 08:00 Oxygen Flow Rate (L/min) 60 Oxygen Delivery Method Mechanical Ventilator Weight: 198 lb 3.129 oz Body Mass Index (BMI) 28.3 Intake & Output: Intake and Output for Last 24 Hours 07/18/24 07/19/24 07/20/24 03:59 03:59 03:59 Intake Total 2735.18 / 2764.58 2603.26 / 2641.93 1091.67 / 1091.67 Output Total 1650 / 1650 1200 / 1200 400 / 400 Balance 1085.18 / 1114.58 1403.26 / 1441.93 691.67 / 691.67 Lab / Micro Data 07/19/24 02:30 07/19/24 02:30 Labs: Laboratory Results - last 24 hr 07/17/24 09:40: Crossmatch See Detail 07/19/24 02:30: WBC 9.6, RBC 2.55 L, Hgb 7.7 L, Hct 24.5 L, MCV 96.1 H, MCH 30.2, MCHC 31.4 L, RDW Std Deviation 55.4 H, RDW Coeff of [place] 15.9 H, Plt Count 139 L, MPV 9.9, Immature Gran % (Auto) 0.400, Neut % (Auto) 85.5 H, Lymph % (Auto) 6.0 L, Saline % (Auto) 7.4, Eos % (Auto) 0.6, Baso % (Auto) 0.1, Absolute Neuts (auto) 8.2 H, Absolute Lymphs (auto) 0.58 L, Nucleated RBC % 0, PT 18.2 H, INR 1.5, APTT 33.8, Sodium 147 H, Potassium 3.5, Chloride 115 H, Carbon Dioxide 24.0, Anion Gap 7, BUN 57 H, Creatinine 2.72 H, Estim Creat Clear Calc 21.18, Est GFR (MDRD) Af Amer 29 L, Est GFR (MDRD) Non-Af 24 L, BUN/Creatinine Ratio 21.0 H, Glucose 111 H, Calcium 8.1 L, Phosphorus 3.8, Magnesium 2.3 Micro: Microbiology 07/16/24 15:40 Sputum, Tracheal Aspirate Gram Stain - Final 07/16/24 15:40 Sputum, Tracheal Aspirate Respiratory Culture - Final Mixed normal respiratory seb. No Streptococcus pneumoniae, beta-hemolytic Streptococcus or Staphylococcus aureus isolated. 07/16/24 05:10 Blood Culture (Wb) - Femoral Artery Blood Culture - Preliminary No growth in 48 hours. 07/16/24 06:05 Blood Culture (Wb) - Line Draw Blood Culture - Preliminary No growth in 48 hours. 07/16/24 05:20 Urine Catheter - Reyes Urine Culture - Final Culture exhibits no growth. 07/17/24 11:25 Mucosa - Nasopharyngeal Coronavirus COVID-19 PCR - Final 07/16/24 15:40 Mucosa - Nose Respiratory Panel (PCR) - Final 07/16/24 05:20 Urine Catheter - Reyes Legionella Antigen - Final 07/16/24 05:20 Urine Catheter - Reyes Streptococcus pneumoniae Antigen (M - Final ABG Data ABG results: ABG 07/18/24 14:40 Specimen Type ART Sample Site L Radial pH 7.42 Bicarbonate Actual 24.0 Total CO2 25 Base Excess -1 O2 Saturation 88 L O2 % 50.0 ABG pCO2 37.0 ABG pO2 53 L Giovanni Test Positive Respiration Rate 16 O2 Delivery Device Adult Vent Vent Mode AC Tidal Volume 450.0 POC PEEP 5 Radiography Diagnostic Testing: Radiology Impression Chest X-Ray 07/18/24 15:15 IMPRESSION: 1. New left-sided cardiac pacer device. 2. Otherwise no significant change. Electronically Signed: Stephan Ingram MD at 15:46 EST , Chest X-Ray 07/19/24 05:35 IMPRESSION: 1. No change pacemaker. 2. No change bilateral pleural effusions. 3. AC opacities in the lungs centrally similar to the prior exam may be due to edema. 4. Endotracheal tube tip is 2.1 cm above the jessica. 5. Right-sided chest tube tip is in the upper right atrium unchanged. 6. No pneumothorax. Electronically Signed: Justo Mcneill MD at 8:52 EST , Physical Exam Const General Appearance: intubated and patient mechanically ventilated HEENT normocephalic Eyes PERRL and conjunctivae normal Neck supple and no JVD Resp normal respiratory effort, no retractions and no use of accessory muscles Auscultation: Negative for crackles, rales, rhonchi or wheezes Cardio regular rate, regular rhythm, S1 normal heart sound, S2 normal heart sound and no murmurs GI soft to palpation and non-distended; Negative for hepatosplenomegaly Extremity no clubbing, cyanosis or edema Skin no rashes or lesions noted Neuro Sensorium / Orientation: sedated on vent Psych Appearance: intubated Assessment & Plan Assessment/Plan (1) Cardiogenic shock: PLAN: Plan #1. Acute hypoxic respiratory failure secondary to acute cardiopulmonary arrest with ROSC secondary to acute third-degree heart block with significant cardiogenic shock however does have significant leukocytosis with left shift thus some concern for possible infectious component, per current evaluation possibly bilateral lower lobe pneumonia of unclear organism, possibly aspiration component given respiratory failure and arrest as noted: Patient initial presentation with complete heart block with rate in the 20s, temporary pacer placed, heart rate improved, initiated on dopamine however required second vasopressor norepinephrine with central line in place per general surgery, continue intubated and sedated status, maintain on IV PPI, judicious fluids only given history, trend lactic acid per facility protocol, monitor acute kidney injury and liver injury given shock component, trending cardiac enzymes with initial 31-> 73-> 290 not surprising in the setting of cardiopulmonary arrest with CPR with ROSC, magnesium 2.1, maintain on IV vancomycin and Zosyn with MRSA screen requested empirically, will request sputum culture, full respiratory viral panel, urine antigens, procalcitonin, 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 07/17/2024: Possible permanent pacemaker if blood cultures remain negative and continues to have renal improvement in respiratory improvement. Currently being temporarily paced 07/18/2024: Blood cultures and urine cultures are negative #2. Acute kidney injury on CKD stage IV based on previous GFR trending secondary to #1, shock: Admission BUN/Cr 82/3.45 prior baseline creatinine noted to be 2.3-2.6 maximum. ED presentation with chest x-ray with mild bilateral airspace disease with small pleural effusions, urinalysis with no obvious evidence infection, blood culture x 2 and urine culture pending per ED given presentation and concern for possibility of overload quickly with aggressive fluids, continue judicious fluids only as needed, defer any nephrotoxic medications, continue vasopressors as noted above, continue to trend CMP. If not improving, worsening low threshold to involve nephrology if remains full code. 07/17/2024: Renal function staying stable continue with pressors 07/18/2024: Renal function is improving to 2.99 today 07/19/2024: Renal function continues to improve, will transfuse a second unit of blood as his hemoglobin only corrected to 77 given his history of heart failure and heart block. He is status post permanent pacemaker yesterday. He did have a spontaneous breathing trial today however his tidal volumes were not adequate so we will delay extubation #3. Acute hyperbilirubinemia, transaminitis secondary to #1, shock: Admission CMP with T. bili 1.10, AST/ALT 1084/980, alk phos 282, continue treatments and evaluation as noted above #1, most recent repeat same day 07/16/2024 T. bili 1.30, AST/ALT 1136/948, alk phos 268, continue to trend. #4. Combined HFp/rEF: Noted history, cardiology following, most recent previous echo noted 05/08/2024 with LVEF 35%, normal LV size, stage II diastolic dysfunction, PASP 50 mmHg, plan repeat echocardiogram as noted, currently given shock liver holding aspirin therapy, resume once clinically appropriate, additionally holding statin and hypertensive regimen on pressor therapies as noted, cautiously administering fluids given underlying history. #5. Abnormal TSH: TSH 8.390, obtained in the acute setting, free T4 1.67, given his current presentation #1 would strongly recommend at this time only planning to continue repeat thyroid function studies outpatient once clinically resolved and improved. #6. History CVA/TIA: As noted above temporally holding aspirin and statin given shock liver, holding hypertensive regimen given hypotensive presentation requiring pressor therapies as noted, resume once clinically appropriate. #7. CAD/PAD, carotid disease: Status post CABG, left-sided endarterectomy, unclear peripheral interventions, as noted above temporally holding aspirin and statin given shock liver, holding hypertensive regimen given hypotensive presentation requiring pressor therapies as noted, resume once clinically appropriate. #8. Chronic macrocytic anemia: Admission hemoglobin 9.2, MCV 98, earlier in the admission, repeat 7.8, will continue to trend, previous baseline primarily 8-9, continue to trend. #9. Hypertension: Given presentation requiring 2 pressor therapies although dopamine primarily for significant complete heart block presentation, will defer all hypertensive medication. #10. Hyperlipidemia: Given shock liver will temporally hold statin therapy, resume once clinically appropriate. #11. Former tobacco use: Encourage continued tobacco cessation. #12. GI prophylaxis/DVT prophylaxis: IV PPI, heparin cautiously given shock liver. Charges/Coding Visit Charges Inpatient E&M: 20293 Subs Hosp L2
[2024-07-19] MEDS: Vital AF 1.2 Cal Liquid 1,000 ML 20 ML GT (09:58)
[2024-07-19] MEDS: Pantoprazole Sodium 40 MG in 0.9% Normal Saline (100mL MB+) 100 ML 330 MG IV (10:09)
[2024-07-19] MEDS: 0.9% Normal Saline (100mL Bag) 100 ML 15 ML IV (10:09)
--- NOTE | 2024-07-19 10:10 | PN.CARD_ITS ---
Subjective Subjective Patient seen and evaluated and appears to be stable Objective Data Vital Signs: Vital Signs Temp Pulse Resp BP Pulse Ox O2 Del Method O2 Flow Rate 99.1 F 80 16 133/52 H 96 Mechanical Ventilator 60 07/19/24 04:00 07/19/24 07:00 07/19/24 07:00 07/19/24 07:00 07/19/24 07:00 07/19/24 08:00 07/17/24 14:32 FiO2 45 07/19/24 08:00 Oxygen Flow Rate (L/min) 60 Oxygen Delivery Method Mechanical Ventilator Weight: 198 lb 3.129 oz Body Mass Index (BMI) 28.3 Intake & Output: Intake and Output for Last 24 Hours 07/17/24 07/18/24 07/19/24 23:59 23:59 23:59 Intake Total 2945.64 / 2968.92 2648.25 / 2668.25 1201.67 / 1201.67 Output Total 1650 / 1650 1200 / 1200 400 / 400 Balance 1295.64 / 1318.92 1448.25 / 1468.25 801.67 / 801.67 Lab / Micro Data 07/19/24 02:30 07/19/24 02:30 Labs: Laboratory Results - last 24 hr 07/17/24 09:40: Crossmatch See Detail 07/19/24 02:30: WBC 9.6, RBC 2.55 L, Hgb 7.7 L, Hct 24.5 L, MCV 96.1 H, MCH 30.2, MCHC 31.4 L, RDW Std Deviation 55.4 H, RDW Coeff of [place] 15.9 H, Plt Count 139 L, MPV 9.9, Immature Gran % (Auto) 0.400, Neut % (Auto) 85.5 H, Lymph % (Auto) 6.0 L, [place] % (Auto) 7.4, Eos % (Auto) 0.6, Baso % (Auto) 0.1, Absolute Neuts (auto) 8.2 H, Absolute Lymphs (auto) 0.58 L, Nucleated RBC % 0, PT 18.2 H, INR 1.5, APTT 33.8, Sodium 147 H, Potassium 3.5, Chloride 115 H, Carbon Dioxide 24.0, Anion Gap 7, BUN 57 H, Creatinine 2.72 H, Estim Creat Clear Calc 21.18, E st GFR (MDRD) Af Amer 29 L, Est GFR (MDRD) Non-Af 24 L, BUN/Creatinine Ratio 21.0 H, Glucose 111 H, Calcium 8.1 L, Phosphorus 3.8, Magnesium 2.3 Micro: Microbiology 07/16/24 15:40 Sputum, Tracheal Aspirate Gram Stain - Final 07/16/24 15:40 Sputum, Tracheal Aspirate Respiratory Culture - Final Mixed normal respiratory seb. No Streptococcus pneumoniae, beta-hemolytic Streptococcus or Staphylococcus aureus isolated. 07/16/24 05:10 Blood Culture (Wb) - Femoral Artery Blood Culture - Preliminary No growth in 48 hours. 07/16/24 06:05 Blood Culture (Wb) - Line Draw Blood Culture - Preliminary No growth in 48 hours. 07/16/24 05:20 Urine Catheter - Reyes Urine Culture - Final Culture exhibits no growth. ABG Data ABG results: ABG 07/18/24 14:40 Specimen Type ART Sample Site L Radial pH 7.42 Bicarbonate Actual 24.0 Total CO2 25 Base Excess -1 O2 Saturation 88 L O2 % 50.0 ABG pCO2 37.0 ABG pO2 53 L Giovanni Test Positive Respiration Rate 16 O2 Delivery Device Adult Vent Vent Mode AC Tidal Volume 450.0 POC PEEP 5 Cardiology Labs/Tests 07/18/24 14:40: pH 7.42, Bicarbonate Actual 24.0, Base Excess -1, O2 Saturation 88 L, ABG pCO2 37.0, ABG pO2 53 L, Giovanni Test Positive 07/19/24 02:30: WBC 9.6, RBC 2.55 L, Hgb 7.7 L, Hct 24.5 L, MCV 96.1 H, MCH 30.2, MCHC 31.4 L, Plt Count 139 L, MPV 9.9, Immature Gran % (Auto) 0.400, Neut % (Auto) 85.5 H, Lymph % (Auto) 6.0 L, [place] % (Auto) 7.4, Eos % (Auto) 0.6, Baso % (Auto) 0.1, Absolute Neuts (auto) 8.2 H, Nucleated RBC % 0, PT 18.2 H, INR 1.5, APTT 33.8, Sodium 147 H, Potassium 3.5, Chloride 115 H, Carbon Dioxide 24.0, Anion Gap 7, BUN 57 H, Creatinine 2.72 H, Est GFR (MDRD) Af Amer 29 L, Est GFR (MDRD) Non-Af 24 L, BUN/Creatinine Ratio 21.0 H, Glucose 111 H, Calcium 8.1 L, Phosphorus 3.8, Magnesium 2.3 Rhythm: EKG: ECHO: Stress Test: Cardiac Cath: PCI: CT Surgery: Holter monitor: EPS: PPM: CXR: Chest CT Scan: Radiography Diagnostic Testing: Radiology Impression Chest X-Ray 07/18/24 15:15 IMPRESSION: 1. New left-sided cardiac pacer device. 2. Otherwise no significant change. Electronically Signed: Stephan Ingram MD at 15:46 EST , Chest X-Ray 07/19/24 05:35 IMPRESSION: 1. No change pacemaker. 2. No change bilateral pleural effusions. 3. AC opacities in the lungs centrally similar to the prior exam may be due to edema. 4. Endotracheal tube tip is 2.1 cm above the jessica. 5. Right-sided chest tube tip is in the upper right atrium unchanged. 6. No pneumothorax. Electronically Signed: Justo Mcneill MD at 8:52 EST , Physical Exam Const Constitutional Narrative: Intubated, sedated and mechanically ventilated. No ventilator dyssynchrony noted. HEENT normocephalic and head/scalp atraumatic Mouth: endotracheal tube in place and OG tube in place Eyes conjunctivae normal and no scleral icterus Neck supple General: trachea midline and CVC in place Chest inspection of chest normal Resp normal respiratory effort Auscultation: Negative for rales, rhonchi or wheezes Cardio regular rate and regular rhythm GI normal to inspection, nondistended, normoactive bowel sounds Extremity General Extremity: edema bilateral lower extremity; Negative for clubbing Skin no rashes or lesions noted Neuro Sensorium / Orientation: sedated on vent Assessment & Plan Assessment/Plan (1) Cardiopulmonary arrest with successful resuscitation: PLAN: Will continue supportive measures as per critical care and hospitalist. (2) Complete heart block by electrocardiogram: PLAN: Patient presents with complete heart block Permanent pacemaker placed single-chamber successfully * Appears to be functioning well. Heart rate in the 80s. Blood pressure on no pressor agents is noted to be 130 systolic. * The plan is to continue the current supportive therapy (3) CHF (congestive heart failure): QUALIFIERS: Heart failure type: combined systolic and diastolic H eart failure chronicity: acute on chronic Qualified Code(s): I50.43 - Acute on chronic combined systolic (congestive) and diastolic (congestive) heart failure PLAN: Echocardiogram demonstrated an ejection fraction of approximately 50% Will continue with supportive measures (4) Atherosclerotic heart disease of [place] coronary artery without angina pectoris: QUALIFIERS: [place] vs. transplanted heart: [place] heart Qualified Code(s): I25.10 - Atherosclerotic heart disease of [place] coronary artery without angina pectoris PLAN: Patient has a known history of coronary artery disease status post coronary bypass surgery. (5) Paroxysmal atrial fibrillation: PLAN: Patient has a history of atrial fibrillation with a left bundle branch block. Will hold off on Eliquis for now (6) Left ventricular systolic dysfunction: PLAN: Patient was noted to have left ventricular systolic dysfunction estimated ejection fraction of 50%. Will optimize medical therapy. (7) CKD (chronic kidney disease) stage 4, GFR 15-29 ml/min: PLAN: Patient has known chronic kidney disease. PLAN: Plan Overall he appears to be stable.
[2024-07-19] MEDS: Chlorhexidine 15 ML PO ×2 (10:54→21:27)
[2024-07-19] MEDS: Piperacil/Tazobactam 3.375 GM in 0.9% Normal Saline (50mL MB+) 50 ML IV ×2 (10:54→21:27)
[2024-07-19] MEDS: fentaNYL drip 100 ML 15 MCG CONT INF (15:22)
[2024-07-19 19:13] LABS: Bedside Glucose 115 mg/dL (74-106)
[2024-07-19] MEDS: fentaNYL drip 100 ML 17.5 MCG CONT INF (21:58)
[2024-07-20] VITALS (35 sets, daily range): BP systolic 118–181; BP diastolic 46–86; PULSE 70–72; RESP 15–31; TEMP 37.2–37.4; O2SAT 90–95; BMI 28.7
[2024-07-20] MEDS: fentaNYL drip 100 ML 20 MCG CONT INF (02:59)
[2024-07-20] MEDS: Vancomycin Trough/Random Due 1 LAB MC (05:52)
[2024-07-20] MEDS: Heparin Injection (Vial) 5,000 UNIT/ML VIAL 5000 UNIT SC ×3 (05:52→21:01)
[2024-07-20] MEDS: 0.9% Saline Lock 10 ML Syringe IV (05:52)
[2024-07-20 06:15] LABS: Absolute Lymphocyte Count 0.52 X10^3/uL (0.83-4.51); Absolute Neutrophil Count 8.7 X10^3/uL (2.0-7.7); Basophil# 0.02 X10^3/uL; Basophil% 0.2 % (0-1); Eosinophil# 0.14 X10^3/uL; Eosinophils% 1.3 % (0-5); Hematocrit 29.8 % (40-54); Hemoglobin 9.5 g/dL (13.0-16.5); Lymphocyte # 0.52 X10^3/ul (0.83-4.51); Mean Corp Hgb Conc 31.9 g/dL (32-36); Mean Corpuscular Hgb 30.5 pg (27.0-32.0); Mean Corpuscular Volume 95.8 fL (80-94); Mean Platelet Vol. 10.2 fl (6.2-12.0); Monocyte# 0.98 X10^3/uL; Monocyte% 9.4 % (0-10); NRBC Flagged by Analyzer 0 % (0-5); Neutrophil % 83.5 % (47-70); POSITIVE DIFFERENTIAL YES; Platelet Count 131 K/mm3 (150-450); RBC Distribution Width CV 16.4 % (11.6-14.6); RBC Distribution Width SD 56.9 fl (35.1-43.9); Red Blood Count 3.11 M/mm3 (4.6-6.2); White Blood Count 10.4 K/mm3 (4.4-11.0)
[2024-07-20 06:39] LABS: Anion Gap 6 (5-15); BUN 52 mg/dL (7-18); BUN/Creat Ratio 21.8 RATIO (10-20); Calcium,Total 8.6 mg/dL (8.5-10.1); Chloride 120 mmol/L (98-107); Creatinine, Serum 2.38 mg/dL (0.70-1.30); EST Glomerular Filtration Rate 28 mL/min (>60); Est Glom Filt Rate - Afr Amer 33 mL/min (>60); Estimated Creatinine Clearance 24.34 ml/min; Glucose 127 mg/dL (74-106); Magnesium 2.4 mg/dL (1.6-2.6); Phosphorus 3.1 mg/dL (2.5-4.9); Potassium 3.6 mmol/L (3.5-5.1); Sodium Level 149 mmol/L (136-145)
[2024-07-20 06:41] LABS: Vancomycin, Random Level 13.8 ug/mL (0.0-15.0)
--- NOTE | 2024-07-20 07:04 | PCM.PN.INT ---
Assessment & Plan Assessment/Plan (1) Cardiogenic shock: (2) Septic shock: (3) Cardiopulmonary arrest with successful resuscitation: (4) Complete heart block by electrocardiogram: PLAN: Plan RECOMMENDATIONS: 1. Continue assist-control mode of mechanical ventilation. Continue to wean FiO2 and PEEP as tolerated. 2. Continue to monitor H&H and transfuse if hemoglobin drops below 7 g/dL. 3. Empiric antimicrobials to complete 7 days of therapy. Vancomycin can be discontinued. 4. Continue PPI therapy. 5. Continue tube feeding as tolerated. 6. Initiate gentle diuresis today as tolerated by hemodynamics and renal function. 7. Proceed with repeat spontaneous awakening and breathing trial again tomorrow. IMPRESSIONS: 1. Acute hypoxemic respiratory failure in the setting of cardiac arrest with ROSC The patient was intubated as a consequence of sustaining a cardiac arrest in the setting of acute third-degree heart block and possible cardiogenic shock. The patient will be continued on assist-control mode of mechanical ventilation. FiO2 and PEEP will be weaned as tolerated. Plan to continue current supportive care, including antimicrobials. The patient will be maintained on fentanyl for sedation. Plan to repeat spontaneous awakening and breathing trial again tomorrow. Continue tube feeding as tolerated. Will initiate gentle diuresis today as tolerated by hemodynamics and renal function. 2. Complete heart block/history of paroxysmal atrial fibrillation The patient is status post permanent pacemaker placement. Cardiology is following to assist with medical management. 3. Multifactorial shock Resolved. Clinical considerations include cardiogenic versus septic etiologies. Empiric antimicrobials will be continued to complete 7 days of therapy, despite negative infectious workup. 4. Acute on chronic kidney disease Improving. Most likely prerenal in etiology in the setting of multifactorial shock and respiratory failure. Continue to monitor urine output. No current indication for renal replacement therapy. 5. History of coronary artery disease/anemia/hypertension/hyperlipidemia Complicates care, management, recovery and prognosis. Continue to hold home antihypertensives. Agree with transfusion of blood products to maintain a hemoglobin at or above 7 g/dL. Continue PPI therapy as ordered. TIME: 34 minutes of critical care time, independent of procedures, was spent addressing the patient's acute hypoxemic respiratory failure, cardiac arrest with ROSC, complete heart block, multifactorial shock, acute kidney injury, review of all data and collaboration with the care team. Subjective Subjective The patient was seen and examined at the bedside this morning. Events from the last 24 hours have been reviewed. The patient currently has a low-grade fever but remains otherwise hemodynamically stable. Upon my initial evaluation of the patient, he was placed on a spontaneous breathing trial. Unfortunately, the patient's tidal volumes were inadequate and he became hypoxic during his spontaneous breathing trial. Therefore, the patient was placed back on assist-control mode mechanical ventilation. He is currently documented to be overall net +11.5 L for the hospitalization. Hemoglobin is stable at 9.5 g/dL. Sodium and chloride are both elevated. All of the patient's supplemental IV fluids have been discontinued. Objective Data Objective Data The patient's most recent lab work, culture data and imaging studies have all been personally reviewed. Surface echocardiogram demonstrated normal LV size with an ejection fraction of 50%. Respiratory viral panel was negative. Blood, urine and sputum cultures have not demonstrated any growth to date. Vital Signs: Vital Signs Temp Pulse Resp BP Pulse Ox O2 Del Method O2 Flow Rate 99.3 F H 72 16 181/49 H 90 Mechanical Ventilator 60 07/20/24 04:00 07/20/24 06:00 07/20/24 06:00 07/20/24 06:00 07/20/24 06:00 07/20/24 06:00 07/17/24 14:32 FiO2 35 07/20/24 06:00 Oxygen Flow Rate (L/min) 60 Oxygen Delivery Method Mechanical Ventilator Weight: 200 lb 9.93 oz Body Mass Index (BMI) 28.7 Intake & Output: Intake and Output for Last 24 Hours 07/18/24 07/19/24 07/20/24 23:59 23:59 23:59 Intake Total 2648.25 / 2668.25 3313.00 / 3323.00 540.92 / 540.92 Output Total 1200 / 1200 1395 / 1395 300 / 300 Balance 1448.25 / 1468.25 1918.00 / 1928.00 240.92 / 240.92 Lab / Micro Data Attestation: I reviewed the patient's lab results. 07/20/24 06:00 07/20/24 06:00 Labs: Laboratory Results - last 24 hr 07/17/24 09:40: Blood Type A POSITIVE, Antibody Screen NEGATIVE, Crossmatch See Detail 07/19/24 18:55: POC Glucose 115 H 07/20/24 06:00: WBC 10.4, RBC 3.11 L, Hgb 9.5 L, Hct 29.8 L, MCV 95.8 H, MCH 30.5, MCHC 31.9 L, RDW Std Deviation 56.9 H, RDW Coeff of [place] 16.4 H, Plt Count 131 L, MPV 10.2, Immature Gran % (Auto) 0.600, Neut % (Auto) 83.5 H, Lymph % (Auto) 5.0 L, [place] % (Auto) 9.4, Eos % (Auto) 1.3, Baso % (Auto) 0.2, Absolute Neuts (auto) 8.7 H, Absolute Lymphs (auto) 0.52 L, Nucleated RBC % 0, Sodium 149 H, Potassium 3.6, Chloride 120 H, Carbon Dioxide 23.0, Anion Gap 6, BUN 52 H, Creatinine 2.38 H, Estim Creat Clear Calc 24.34, Est GFR (MDRD) Af Amer 33 L, Est GFR (MDRD) Non-Af 28 L, BUN/Creatinine Ratio 21.8 H, Glucose 127 H, Calcium 8.6, Phosphorus 3.1, Magnesium 2.4, Random Vancomycin 13.8 Micro: Microbiology 07/16/24 15:40 Sputum, Tracheal Aspirate Gram Stain - Final 07/16/24 15:40 Sputum, Tracheal Aspirate Respiratory Culture - Final Mixed normal respiratory seb. No Streptococcus pneumoniae, beta-hemolytic Streptococcus or Staphylococcus aureus isolated. 07/16/24 05:10 Blood Culture (Wb) - Femoral Artery Blood Culture - Preliminary No growth in 48 hours. 07/16/24 06:05 Blood Culture (Wb) - Line Draw Blood Culture - Preliminary No growth in 48 hours. 07/16/24 05:20 Urine Catheter - Reyes Urine Culture - Final Culture exhibits no growth. 07/17/24 11:25 Mucosa - Nasopharyngeal Coronavirus COVID-19 PCR - Final 07/16/24 15:40 Mucosa - Nose Respiratory Panel (PCR) - Final 07/16/24 05:20 Urine Catheter - Reyes Legionella Antigen - Final 07/16/24 05:20 Urine Catheter - Reyes Streptococcus pneumoniae Antigen (M - Final ABG Data ABG results: ABG 07/18/24 14:40 Specimen Type ART Sample Site L Radial pH 7.42 Bicarbonate Actual 24.0 Total CO2 25 Base Excess -1 O2 Saturation 88 L O2 % 50.0 ABG pCO2 37.0 ABG pO2 53 L Giovanni Test Positive Respiration Rate 16 O2 Delivery Device Adult Vent Vent Mode AC Tidal Volume 450.0 POC PEEP 5 Radiography Diagnostic Testing: Radiology Impression Chest X-Ray 07/19/24 05:35 IMPRESSION: 1. No change pacemaker. 2. No change bilateral pleural effusions. 3. AC opacities in the lungs centrally similar to the prior exam may be due to edema. 4. Endotracheal tube tip is 2.1 cm above the jessica. 5. Right-sided chest tube tip is in the upper right atrium unchanged. 6. No pneumothorax. Electronically Signed: Justo Mcneill MD at 8:52 EST , Physical Exam Const Constitutional Narrative: Intubated, sedated and mechanically ventilated. No ventilator dyssynchrony noted. HEENT normocephalic and head/scalp atraumatic Mouth: endotracheal tube in place and OG tube in place Eyes conjunctivae normal and no scleral icterus Neck supple General: trachea midline and CVC in place Chest inspection of chest normal Resp normal respiratory effort Auscultation: Negative for rales, rhonchi or wheezes Cardio regular rate and regular rhythm GI normal to inspection, nondistended, normoactive bowel sounds Extremity General Extremity: edema bilateral lower extremity; Negative for clubbing Skin no rashes or lesions noted Neuro Sensorium / Orientation: sedated on vent Charges/Coding Procedures Hospitalists Procedures: 07086 Critical Care 1st Hr
--- NOTE | 2024-07-20 07:08 | PCM.RX.CS ---
Consult Antibiotic Management Pharmacy has been consulted to manage selected antibiotic: Vancomycin Type of Intervention Type of Consult: Follow-up Suspected Infection Suspected Infection: Sepsis Labs Labs: Sodium 149 mmol/L (136-145) H 07/20/24 06:00 Potassium 3.6 mmol/L (3.5-5.1) 07/20/24 06:00 Chloride 120 mmol/L (98-107) H 07/20/24 06:00 Carbon Dioxide 23.0 mmol/L (21.0-32.0) 07/20/24 06:00 Anion Gap 6 (5-15) 07/20/24 06:00 BUN 52 mg/dL (7-18) H 07/20/24 06:00 Creatinine 2.38 mg/dL (0.70-1.30) H 07/20/24 06:00 Est GFR (MDRD) Af Amer 33 mL/min (>60) L 07/20/24 06:00 Est GFR (MDRD) Non-Af 28 mL/min (>60) L 07/20/24 06:00 BUN/Creatinine Ratio 21.8 RATIO (10-20) H 07/20/24 06:00 Glucose 127 mg/dL (74-106) H 07/20/24 06:00 Random Vancomycin 13.8 ug/mL (0.0-15.0) 07/20/24 06:00 Microbiology Microbiology: Microbiology 07/16/24 15:40 Sputum, Tracheal Aspirate Gram Stain - Final 07/16/24 15:40 Sputum, Tracheal Aspirate Respiratory Culture - Final Mixed normal respiratory seb. No Streptococcus pneumoniae, beta-hemolytic Streptococcus or Staphylococcus aureus isolated. 07/16/24 05:10 Blood Culture (Wb) - Femoral Artery Blood Culture - Preliminary No growth in 48 hours. 07/16/24 06:05 Blood Culture (Wb) - Line Draw Blood Culture - Preliminary No growth in 48 hours. 07/16/24 05:20 Urine Catheter - Reyes Urine Culture - Final Culture exhibits no growth. 07/17/24 11:25 Mucosa - Nasopharyngeal Coronavirus COVID-19 PCR - Final 07/16/24 15:40 Mucosa - Nose Respiratory Panel (PCR) - Final 07/16/24 05:20 Urine Catheter - Reyes Legionella Antigen - Final 07/16/24 05:20 Urine Catheter - Reyes Streptococcus pneumoniae Antigen (M - Final Dosing Weight Weight used for dosin kg Estimated Creatinine Clearance Estimated Creatinine Clearance: 24ml/min Goal Trough Goal Trough: 15-20 mcg/mL Pharmacy Plan for Drug Dosing Pharmacy Plan for Drug Dosing: VANCOMYCIN LEVEL RECEIVED Current Vancomycin Dose: Pt is being renally dosed due to previous CrCr < 20ml/min Number of Doses Received: Vancomycin Level: random level resulted at 13.8 Hours Since Last Dose: 24 hours since last dose which was 1000mg x1 Renal Function: SrCr 2.38 Renal Function Trend: SrCr improving (CrCl is now > 20ml/min) Lab/Micro: Vancomycin Plan/Comments: CrCl is now > 20ml/min. recommend starting patient on 750mg of vancomycin q24h and checking a trough prior to the 3rd dose to ensure dose is being cleared. Pending Level: 07/22/24 at 0730 Pharmacy Service will continue to monitor and adjust dosing as required. Follow-Up Labs Follow-Up Labs: Trough: Vancomycin (07/22/24 at 0730)
--- NOTE | 2024-07-20 07:25 | NURSING ---
Dr. Kirkland at bedside, changed patient to spontaneous trial
--- NOTE | 2024-07-20 08:06 | PCM.PN.HOSP ---
Subjective Subjective Off of pressor support, still intubated but sedation is off Objective Data Objective Data Vital Signs: Vital Signs Temp Pulse Resp BP Pulse Ox O2 Del Method O2 Flow Rate 99.3 F H 70 31 H 145/57 H 92 Mechanical Ventilator 60 07/20/24 04:00 07/20/24 07:13 07/20/24 07:13 07/20/24 07:00 07/20/24 07:13 07/20/24 07:00 07/17/24 14:32 FiO2 35 07/20/24 07:13 Oxygen Flow Rate (L/min) 60 Oxygen Delivery Method Mechanical Ventilator Weight: 200 lb 9.93 oz Body Mass Index (BMI) 28.7 Intake & Output: Intake and Output for Last 24 Hours 07/19/24 07/20/24 07/21/24 03:59 03:59 03:59 Intake Total 2603.26 / 2641.93 3332.75 / 3341.50 888.34 / 888.34 Output Total 1200 / 1200 1395 / 1395 300 / 300 Balance 1403.26 / 1441.93 1937.75 / 1946.50 588.34 / 588.34 Lab / Micro Data 07/20/24 06:00 07/20/24 06:00 Labs: Laboratory Results - last 24 hr 07/17/24 09:40: Blood Type A POSITIVE, Antibody Screen NEGATIVE, Crossmatch See Detail 07/19/24 18:55: POC Glucose 115 H 07/20/24 06:00: WBC 10.4, RBC 3.11 L, Hgb 9.5 L, Hct 29.8 L, MCV 95.8 H, MCH 30.5, MCHC 31.9 L, RDW Std Deviation 56.9 H, RDW Coeff of [place] 16.4 H, Plt Count 131 L, MPV 10.2, Immature Gran % (Auto) 0.600, Neut % (Auto) 83.5 H, Lymph % (Auto) 5.0 L, [place] % (Auto) 9.4, Eos % (Auto) 1.3, Baso % (Auto) 0.2, Absolute Neuts (auto) 8.7 H, Absolute Lymphs (auto) 0.52 L, Nucleated RBC % 0, Sodium 149 H, Potassium 3.6, Chloride 120 H, Carbon Dioxide 23.0, Anion Gap 6, BUN 52 H, Creatinine 2.38 H, Estim Creat Clear Calc 24.34, Est GFR (MDRD) Af Amer 33 L, Est GFR (MDRD) Non-Af 28 L, BUN/Creatinine Ratio 21.8 H, Glucose 127 H, Calcium 8.6, Phosphorus 3.1, Magnesium 2.4, Random Vancomycin 13.8 Micro: Microbiology 07/16/24 15:40 Sputum, Tracheal Aspirate Gram Stain - Final 07/16/24 15:40 Sputum, Tracheal Aspirate Respiratory Culture - Final Mixed normal respiratory seb. No Streptococcus pneumoniae, beta-hemolytic Streptococcus or Staphylococcus aureus isolated. 07/16/24 05:10 Blood Culture (Wb) - Femoral Artery Blood Culture - Preliminary No growth in 48 hours. 07/16/24 06:05 Blood Culture (Wb) - Line Draw Blood Culture - Preliminary No growth in 48 hours. 07/16/24 05:20 Urine Catheter - Reyes Urine Culture - Final Culture exhibits no growth. 07/17/24 11:25 Mucosa - Nasopharyngeal Coronavirus COVID-19 PCR - Final 07/16/24 15:40 Mucosa - Nose Respiratory Panel (PCR) - Final 07/16/24 05:20 Urine Catheter - Reyes Legionella Antigen - Final 07/16/24 05:20 Urine Catheter - Reyes Streptococcus pneumoniae Antigen (M - Final Radiography Diagnostic Testing: Radiology Impression Chest X-Ray 07/19/24 05:35 IMPRESSION: 1. No change pacemaker. 2. No change bilateral pleural effusions. 3. AC opacities in the lungs centrally similar to the prior exam may be due to edema. 4. Endotracheal tube tip is 2.1 cm above the jessica. 5. Right-sided chest tube tip is in the upper right atrium unchanged. 6. No pneumothorax. Electronically Signed: Justo Mnceill MD at 8:52 EST , Physical Exam Const General Appearance: intubated and patient mechanically ventilated HEENT normocephalic Eyes PERRL and conjunctivae normal Neck supple and no JVD Resp normal respiratory effort, no retractions and no use of accessory muscles Auscultation: Negative for crackles, rales, rhonchi or wheezes Cardio regular rate, regular rhythm, S1 normal heart sound, S2 normal heart sound and no murmurs GI soft to palpation and non-distended; Negative for hepatosplenomegaly Extremity no clubbing, cyanosis or edema Skin no rashes or lesions noted Neuro Sensorium / Orientation: sedated on vent Psych Appearance: intubated Assessment & Plan Assessment/Plan (1) Cardiogenic shock: PLAN: Plan #1. Acute hypoxic respiratory failure secondary to acute cardiopulmonary arrest with ROSC secondary to acute third-degree heart block with significant cardiogenic shock however does have significant leukocytosis with left shift thus some concern for possible infectious component, per current evaluation possibly bilateral lower lobe pneumonia of unclear organism, possibly aspiration component given respiratory failure and arrest as noted: Patient initial presentation with complete heart block with rate in the 20s, temporary pacer placed, heart rate improved, initiated on dopamine however required second vasopressor norepinephrine with central line in place per general surgery, continue intubated and sedated status, maintain on IV PPI, judicious fluids only given history, trend lactic acid per facility protocol, monitor acute kidney injury and liver injury given shock component, trending cardiac enzymes with initial 31-> 73-> 290 not surprising in the setting of cardiopulmonary arrest with CPR with ROSC, magnesium 2.1, maintain on IV vancomycin and Zosyn with MRSA screen requested empirically, will request sputum culture, full respiratory viral panel, urine antigens, procalcitonin, consumer electronic retail specialist team consulted per protocol, continue pacing parameters and interventions per cardiology direction, planned 07/17/2024 echocardiogram request. 07/17/2024: Possible permanent pacemaker if blood cultures remain negative and continues to have renal improvement in respiratory improvement. Currently being temporarily paced 07/18/2024: Blood cultures and urine cultures are negative 07/20/2024: Can likely discontinue antibiotics since cultures are negative. Drawing small tidal volumes still struggling to be extubated #2. Acute kidney injury on CKD stage IV based on previous GFR trending secondary to #1, shock: Admission BUN/Cr 82/3.45 prior baseline creatinine noted to be 2.3-2.6 maximum. ED presentation with chest x-ray with mild bilateral airspace disease with small pleural effusions, urinalysis with no obvious evidence infection, blood culture x 2 and urine culture pending per ED given presentation and concern for possibility of overload quickly with aggressive fluids, continue judicious fluids only as needed, defer any nephrotoxic medications, continue vasopressors as noted above, continue to trend CMP. If not improving, worsening low threshold to involve nephrology if remains full code. 07/17/2024: Renal function staying stable continue with pressors 07/18/2024: Renal function is improving to 2.99 today 07/19/2024: Renal function continues to improve, will transfuse a second unit of blood as his hemoglobin only corrected to 77 given his history of heart failure and heart block. He is status post permanent pacemaker yesterday. He did have a spontaneous breathing trial today however his tidal volumes were not adequate so we will delay extubation 07/20/2024: Hypernatremic today will monitor, renal function is improved to 2.38 today #3. Acute hyperbilirubinemia, transaminitis secondary to #1, shock: Admission CMP with T. bili 1.10, AST/ALT 1084/980, alk phos 282, continue treatments and evaluation as noted above #1, most recent repeat same day 07/16/2024 T. bili 1.30, AST/ALT 1136/948, alk phos 268, continue to trend. #4. Combined HFp/rEF: Noted history, cardiology following, most recent previous echo noted 05/08/2024 with LVEF 35%, normal LV size, stage II diastolic dysfunction, PASP 50 mmHg, plan repeat echocardiogram as noted, currently given shock liver holding aspirin therapy, resume once clinically appropriate, additionally holding statin and hypertensive regimen on pressor therapies as noted, cautiously administering fluids given underlying history. #5. Abnormal TSH: TSH 8.390, obtained in the acute setting, free T4 1.67, given his current presentation #1 would strongly recommend at this time only planning to continue repeat thyroid function studies outpatient once clinically resolved and improved. #6. History CVA/TIA: As noted above temporally holding aspirin and statin given shock liver, holding hypertensive regimen given hypotensive presentation requiring pressor therapies as noted, resume once clinically appropriate. #7. CAD/PAD, carotid disease: Status post CABG, left-sided endarterectomy, unclear peripheral interventions, as noted above temporally holding aspirin and statin given shock liver, holding hypertensive regimen given hypotensive presentation requiring pressor therapies as noted, resume once clinically appropriate. #8. Chronic macrocytic anemia: Admission hemoglobin 9.2, MCV 98, earlier in the admission, repeat 7.8, will continue to trend, previous baseline primarily 8-9, continue to trend. #9. Hypertension: Given presentation requiring 2 pressor therapies although dopamine primarily for significant complete heart block presentation, will defer all hypertensive medication. #10. Hyperlipidemia: Given shock liver will temporally hold statin therapy, resume once clinically appropriate. #11. Former tobacco use: Encourage continued tobacco cessation. #12. GI prophylaxis/DVT prophylaxis: IV PPI, heparin cautiously given shock liver. Charges/Coding Visit Charges Inpatient E&M: 74792 Subs Hosp L2
[2024-07-20] MEDS: Vancomycin HCl 750 MG in 0.9% Normal Saline (250mL Bag) 250 ML 250 MG IV (08:23)
[2024-07-20] MEDS: Piperacil/Tazobactam 3.375 GM in 0.9% Normal Saline (50mL MB+) 50 ML IV ×2 (09:40→21:02)
[2024-07-20] MEDS: Furosemide 40 MG/4 ML Vial IV ×2 (09:40→18:09)
[2024-07-20] MEDS: Pantoprazole Sodium 40 MG in 0.9% Normal Saline (100mL MB+) 100 ML 330 MG IV (09:41)
--- NOTE | 2024-07-20 09:47 | CASEMGMT ---
Social Work- SW participated in interdisciplinary rounds on pt. Pt family not present. Pt remains on vent; day 5 and failed breathing trials this morning. SW remains available to follow and for family support. JAMIN collaborated with BARRERA. SANFORD Bone
[2024-07-20] MEDS: Chlorhexidine 15 ML PO ×2 (09:51→21:01)
[2024-07-20] MEDS: fentaNYL drip 100 ML 10 MCG CONT INF (13:00)
--- NOTE | 2024-07-20 15:40 | CHAPLAIN ---
Type of Pastoral Visit ___ Initial Visit _x__ Follow-up Visit ___ On-call Visit ___ General Patient Visit ___ Spiritual Assessment ___ Family Conference ___ Bereavement ___ Rapid Response ___ Code Blue ___ Other (describe below) Pastoral Care Referral From ___ Patient _x__ Family ___ Nurse ___ Physician ___ Intertype Operator ___ Sorter Packer ___ Other (describe below) Sacrament/Intervention _x__ Active listening ___ Anointing ___ Tenriism ___ Bereavement ___ Communion ___ Radha exploration ___ ___ Life review ___ Prayer ___ Reconciliation ___ Sacrament of Sick _x__ Supportive presence ___ Wedding ___ Other (describe below) Pastoral Comments patient remains on the vent; family members are in the waiting room; sat with family to offer presence and support; family is giving support to one another; spouse continues to be upbeat and keeping vega over the patient; offer of support ongoing to this patient and family
[2024-07-21] VITALS (37 sets, daily range): BP systolic 115–181; BP diastolic 43–99; PULSE 70–73; RESP 10–18; TEMP 36.1–37.6; O2SAT 88–99; BMI 27.6
[2024-07-21] MEDS: 0.9% Saline Lock 10 ML Syringe IV (06:10)
[2024-07-21] MEDS: Heparin Injection (Vial) 5,000 UNIT/ML VIAL 5000 UNIT SC ×3 (06:10→21:04)
[2024-07-21 06:23] LABS: Absolute Neutrophil Count 7.8 X10^3/uL (2.0-7.7); Basophil# 0.01 X10^3/uL; Basophil% 0.1 % (0-1); Eosinophil# 0.18 X10^3/uL; Eosinophils% 1.9 % (0-5); Hematocrit 29.8 % (40-54); Hemoglobin 9.3 g/dL (13.0-16.5); Lymphocyte % 4.2 % (19-41); Mean Corp Hgb Conc 31.2 g/dL (32-36); Mean Corpuscular Volume 96.1 fL (80-94); Mean Platelet Vol. 9.9 fl (6.2-12.0); Monocyte# 1.02 X10^3/uL; Monocyte% 10.8 % (0-10); NRBC Flagged by Analyzer 0 % (0-5); Neutrophil # 7.78 X10^3/uL (2.7-7.7); Neutrophil % 82.4 % (47-70); POSITIVE DIFFERENTIAL YES; Platelet Count 122 K/mm3 (150-450); RBC Distribution Width CV 16.3 % (11.6-14.6); RBC Distribution Width SD 56.6 fl (35.1-43.9); White Blood Count 9.5 K/mm3 (4.4-11.0)
[2024-07-21 06:37] LABS: Anion Gap 5 (5-15); BUN 50 mg/dL (7-18); BUN/Creat Ratio 21.7 RATIO (10-20); Calcium,Total 8.6 mg/dL (8.5-10.1); Chloride 119 mmol/L (98-107); EST Glomerular Filtration Rate 29 mL/min (>60); Est Glom Filt Rate - Afr Amer 35 mL/min (>60); Estimated Creatinine Clearance 22.92 ml/min; Glucose 145 mg/dL (74-106); Magnesium 2.2 mg/dL (1.6-2.6); Phosphorus 2.9 mg/dL (2.5-4.9); Potassium 3.4 mmol/L (3.5-5.1); Sodium Level 150 mmol/L (136-145)
--- NOTE | 2024-07-21 07:06 | PN.CC_ITS ---
Assessment & Plan Assessment/Plan (1) Cardiogenic shock: (2) Septic shock: (3) Cardiopulmonary arrest with successful resuscitation: (4) Complete heart block by electrocardiogram: PLAN: Plan RECOMMENDATIONS: 1. Proceed with a trial of extubation this morning. 2. Once extubated, wean supplemental oxygen to maintain saturations at or above 90%. 3. Antimicrobials to complete 7 days of therapy. 4. Ongoing diuresis as tolerated by hemodynamics and renal function. 5. Continue to monitor H&H and transfuse if hemoglobin drops below 7 g/dL. 6. Continue PPI therapy. 7. Speech therapy evaluation prior to advancement of diet. 8. Encourage incentive spirometer use and mobilize patient as tolerated. IMPRESSIONS: 1. Acute hypoxemic respiratory failure in the setting of cardiac arrest with ROSC The patient was intubated as a consequence of sustaining a cardiac arrest in the setting of acute third-degree heart block and possible cardiogenic shock. The patient was maintained on invasive mechanical ventilatory support. Plan to continue antimicrobials to complete 7 days of therapy. The patient ultimately passed a spontaneous breathing trial this morning and was extubated. Once extubated, supplemental oxygen will be weaned to maintain saturations at or above 90%. Continue ongoing diuresis as tolerated by hemodynamics and renal function. 2. Complete heart block/history of paroxysmal atrial fibrillation The patient is status post permanent pacemaker placement. Cardiology is following to assist with medical management. 3. Multifactorial shock Resolved. Clinical considerations include cardiogenic versus septic etiologies. Empiric antimicrobials will be continued to complete 7 days of therapy, despite negative infectious workup. 4. Acute on chronic kidney disease Improving. Most likely prerenal in etiology in the setting of multifactorial shock and respiratory failure. Continue to monitor urine output. No current indication for renal replacement therapy. 5. History of coronary artery disease/anemia/hypertension/hyperlipidemia Complicates care, management, recovery and prognosis. Continue to hold home antihypertensives. Agree with transfusion of blood products to maintain a hemoglobin at or above 7 g/dL. Continue PPI therapy as ordered. TIME: 32 minutes of critical care time, independent of procedures, was spent addressing the patient's acute hypoxemic respiratory failure, cardiac arrest with ROSC, complete heart block, multifactorial shock, acute kidney injury, review of all data and collaboration with the care team. Subjective Subjective The patient was seen and examined at the bedside this morning. Events from the last 24 hours have been reviewed. The patient did relatively well this morning on his spontaneous breathing trial and was therefore extubated. He is now documented to be overall net +8.3 L for the hospitalization, after receiving Lasix yesterday. White blood cell count remains normal. Hemoglobin is stable at 9.3 g/dL. Sodium has increased to 150 with a potassium of 3.4 and creatinine of 2.3. I did speak with the patient's family yesterday regarding his overall prognosis and goals of care. His did indicate her desire to proceed with reintubation, if the patient does not do well from a respiratory perspective. She was also in agreement for tracheostomy and PEG tube placement, if this were to be required. Objective Data Objective Data The patient's most recent lab work, culture data and imaging studies have all been personally reviewed. Surface echocardiogram demonstrated normal LV size with an ejection fraction of 50%. Respiratory viral panel was negative. Blood, urine and sputum cultures have not demonstrated any growth to date. Vital Signs: Vital Signs Temp Pulse Resp BP Pulse Ox O2 Del Method O2 Flow Rate 99.5 F H 73 16 145/51 H 95 Mechanical Ventilator 60 07/21/24 04:00 07/21/24 06:47 07/21/24 06:47 07/21/24 06:00 07/21/24 06:47 07/21/24 06:00 07/17/24 14:32 FiO2 35 07/21/24 06:47 Oxygen Flow Rate (L/min) 60 Oxygen Delivery Method Mechanical Ventilator Weight: 192 lb 10.944 oz Body Mass Index (BMI) 27.6 Intake & Output: Intake and Output for Last 24 Hours 07/19/24 07/20/24 07/21/24 23:59 23:59 23:59 Intake Total 3313.00 / 3323.00 1744.42 / 1749.42 399.25 / 399.25 Output Total 1395 / 1395 3375 / 3375 1100 / 1100 Balance 1918.00 / 1928.00 -1630.58 / -1625.58 -700.75 / -700.75 Lab / Micro Data Attestation: I reviewed the patient's lab results. 07/21/24 06:05 07/21/24 06:05 Labs: Laboratory Results - last 24 hr 07/21/24 06:05: WBC 9.5, RBC 3.10 L, Hgb 9.3 L, Hct 29.8 L, MCV 96.1 H, MCH 30.0, MCHC 31.2 L, RDW Std Deviation 56.6 H, RDW Coeff of [place] 16.3 H, Plt Count 122 L, MPV 9.9, Immature Gran % (Auto) 0.600, Neut % (Auto) 82.4 H, Lymph % (Auto) 4.2 L, [place] % (Auto) 10.8 H, Eos % (Auto) 1.9, Baso % (Auto) 0.1, A bsolute Neuts (auto) 7.8 H, Absolute Lymphs (auto) 0.40 L, Nucleated RBC % 0, S odium 150 H, Potassium 3.4 L, Chloride 119 H, Carbon Dioxide 26.0, Anion Gap 5, BUN 50 H, Creatinine 2.30 H, Estim Creat Clear Calc 22.92, Est GFR (MDRD) Af Amer 35 L, Est GFR (MDRD) Non-Af 29 L, BUN/Creatinine Ratio 21.7 H, Glucose 145 H, Calcium 8.6, Phosphorus 2.9, Magnesium 2.2 Micro: Microbiology 07/16/24 15:40 Sputum, Tracheal Aspirate Gram Stain - Final 07/16/24 15:40 Sputum, Tracheal Aspirate Respiratory Culture - Final Mixed normal respiratory seb. No Streptococcus pneumoniae, beta-hemolytic Streptococcus or Staphylococcus aureus isolated. 07/16/24 05:10 Blood Culture (Wb) - Femoral Artery Blood Culture - Preliminary No growth in 48 hours. 07/16/24 06:05 Blood Culture (Wb) - Line Draw Blood Culture - Preliminary No growth in 48 hours. 07/16/24 05:20 Urine Catheter - Reyes Urine Culture - Final Culture exhibits no growth. 07/17/24 11:25 Mucosa - Nasopharyngeal Coronavirus COVID-19 PCR - Final 07/16/24 15:40 Mucosa - Nose Respiratory Panel (PCR) - Final 07/16/24 05:20 Urine Catheter - Reyes Legionella Antigen - Final 07/16/24 05:20 Urine Catheter - Reyes Streptococcus pneumoniae Antigen (M - Final ABG Data ABG results: ABG 07/18/24 14:40 Specimen Type ART Sample Site L Radial pH 7.42 Bicarbonate Actual 24.0 Total CO2 25 Base Excess -1 O2 Saturation 88 L O2 % 50.0 ABG pCO2 37.0 ABG pO2 53 L Giovanni Test Positive Respiration Rate 16 O2 Delivery Device Adult Vent Vent Mode AC Tidal Volume 450.0 POC PEEP 5 Radiography Diagnostic Testing: Radiology Impression Chest X-Ray 07/19/24 05:35 IMPRESSION: 1. No change pacemaker. 2. No change bilateral pleural effusions. 3. AC opacities in the lungs centrally similar to the prior exam may be due to edema. 4. Endotracheal tube tip is 2.1 cm above the jessica. 5. Right-sided chest tube tip is in the upper right atrium unchanged. 6. No pneumothorax. Electronically Signed: Justo Mcneill MD at 8:52 EST , Physical Exam Const Constitutional Narrative: Intubated and mechanically ventilated. Tolerating spontaneous mode of mechanical ventilation. HEENT normocephalic and head/scalp atraumatic Mouth: endotracheal tube in place and OG tube in place Eyes conjunctivae normal and no scleral icterus Neck supple General: trachea midline and CVC in place Chest inspection of chest normal Resp normal respiratory effort Auscultation: Negative for rales, rhonchi or wheezes Cardio regular rate and regular rhythm GI normal to inspection, nondistended, normoactive bowel sounds Extremity General Extremity: edema bilateral lower extremity; Negative for clubbing Skin no rashes or lesions noted Neuro Neuro Narrative: Alert and able to follow simple commands appropriately. Charges/Coding Procedures Hospitalists Procedures: [id number] Critical Care 1st Hr
--- NOTE | 2024-07-21 08:05 | PCM.PN.HOSP ---
Subjective Subjective No issues overnight, still drawing low tidal volumes when he is on CPAP Objective Data Objective Data Vital Signs: Vital Signs Temp Pulse Resp BP Pulse Ox O2 Del Method O2 Flow Rate 99.5 F H 70 17 181/52 H 93 Mechanical Ventilator 60 07/21/24 04:00 07/21/24 07:16 07/21/24 07:17 07/21/24 07:00 07/21/24 07:16 07/21/24 07:00 07/17/24 14:32 FiO2 35 07/21/24 07:00 Oxygen Flow Rate (L/min) 60 Oxygen Delivery Method Mechanical Ventilator Weight: 192 lb 10.944 oz Body Mass Index (BMI) 27.6 Intake & Output: Intake and Output for Last 24 Hours 07/20/24 07/21/24 07/22/24 03:59 03:59 03:59 Intake Total 3332.75 / 3341.50 / 2012. 1.25 / 1. Output Total 1395 / 1395 3375 / 4475 1275 / 1275 Balance 1937.75 / 1946.50 -1362.33 / -2461.08 -1273.75 / -1273.75 Lab / Micro Data 07/21/24 06:05 07/21/24 06:05 Labs: Laboratory Results - last 24 hr 07/21/24 06:05: WBC 9.5, RBC 3.10 L, Hgb 9.3 L, Hct 29.8 L, MCV 96.1 H, MCH 30.0, MCHC 31.2 L, RDW Std Deviation 56.6 H, RDW Coeff of [place] 16.3 H, Plt Count 122 L, MPV 9.9, Immature Gran % (Auto) 0.600, Neut % (Auto) 82.4 H, Lymph % (Auto) 4.2 L, [place] % (Auto) 10.8 H, Eos % (Auto) 1.9, Baso % (Auto) 0.1, Absolute Neuts (auto) 7.8 H, Absolute Lymphs (auto) 0.40 L, Nucleated RBC % 0, Sodium 150 H, Potassium 3.4 L, Chloride 119 H, Carbon Dioxide 26.0, Anion Gap 5, BUN 50 H, Creatinine 2.30 H, Estim Creat Clear Calc 22.92, Est GFR (MDRD) Af Amer 35 L, Est GFR (MDRD) Non-Af 29 L, BUN/Creatinine Ratio 21.7 H, Glucose 145 H, Calcium 8.6, Phosphorus 2.9, Magnesium 2.2 Micro: Microbiology 07/16/24 06:05 Blood Culture (Wb) - Line Draw Blood Culture - Final No growth in 5 days. 07/16/24 05:10 Blood Culture (Wb) - Femoral Artery Blood Culture - Final No growth in 5 days. 07/16/24 15:40 Sputum, Tracheal Aspirate Gram Stain - Final 07/16/24 15:40 Sputum, Tracheal Aspirate Respiratory Culture - Final Mixed normal respiratory seb. No Streptococcus pneumoniae, beta-hemolytic Streptococcus or Staphylococcus aureus isolated. 07/16/24 05:20 Urine Catheter - Reyes Urine Culture - Final Culture exhibits no growth. 07/17/24 11:25 Mucosa - Nasopharyngeal Coronavirus COVID-19 PCR - Final 07/16/24 15:40 Mucosa - Nose Respiratory Panel (PCR) - Final 07/16/24 05:20 Urine Catheter - Reyes Legionella Antigen - Final 07/16/24 05:20 Urine Catheter - Reyes Streptococcus pneumoniae Antigen (M - Final Physical Exam Const alert General Appearance: intubated and patient mechanically ventilated HEENT normocephalic Eyes PERRL and conjunctivae normal Neck supple and no JVD Resp normal respiratory effort, no retractions and no use of accessory muscles Auscultation: Negative for crackles, rales, rhonchi or wheezes Cardio regular rate, regular rhythm, S1 normal heart sound, S2 normal heart sound and no murmurs GI soft to palpation and non-distended; Negative for hepatosplenomegaly Extremity no clubbing, cyanosis or edema Skin no rashes or lesions noted Neuro Sensorium / Orientation: sedated on vent Psych Appearance: intubated Assessment & Plan Assessment/Plan (1) Cardiogenic shock: PLAN: Plan #1. Acute hypoxic respiratory failure secondary to acute cardiopulmonary arrest with ROSC secondary to acute third-degree heart block with significant cardiogenic shock however does have significant leukocytosis with left shift thus some concern for possible infectious component, per current evaluation possibly bilateral lower lobe pneumonia of unclear organism, possibly aspiration component given respiratory failure and arrest as noted: Patient initial presentation with complete heart block with rate in the 20s, temporary pacer placed, heart rate improved, initiated on dopamine however required second vasopressor norepinephrine with central line in place per general surgery, continue intubated and sedated status, maintain on IV PPI, judicious fluids only given history, trend lactic acid per facility protocol, monitor acute kidney injury and liver injury given shock component, trending cardiac enzymes with initial 31-> 73-> 290 not surprising in the setting of cardiopulmonary arrest with CPR with ROSC, magnesium 2.1, maintain on IV vancomycin and Zosyn with MRSA screen requested empirically, will request sputum culture, full respiratory viral panel, urine antigens, procalcitonin, 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 07/17/2024: Possible permanent pacemaker if blood cultures remain negative and continues to have renal improvement in respiratory improvement. Currently being temporarily paced 07/18/2024: Blood cultures and urine cultures are negative 07/20/2024: Can likely discontinue antibiotics since cultures are negative. Drawing small tidal volumes still struggling to be extubated 07/21/2024: May need to pursue trach and PEG if family wants to go that route #2. Acute kidney injury on CKD stage IV based on previous GFR trending secondary to #1, shock: Admission BUN/Cr 82/3.45 prior baseline creatinine noted to be 2.3-2.6 maximum. ED presentation with chest x-ray with mild bilateral airspace disease with small pleural effusions, urinalysis with no obvious evidence infection, blood culture x 2 and urine culture pending per ED given presentation and concern for possibility of overload quickly with aggressive fluids, continue judicious fluids only as needed, defer any nephrotoxic medications, continue vasopressors as noted above, continue to trend CMP. If not improving, worsening low threshold to involve nephrology if remains full code. 07/17/2024: Renal function staying stable continue with pressors 07/18/2024: Renal function is improving to 2.99 today 07/19/2024: Renal function continues to improve, will transfuse a second unit of blood as his hemoglobin only corrected to 77 given his history of heart failure and heart block. He is status post permanent pacemaker yesterday. He did have a spontaneous breathing trial today however his tidal volumes were not adequate so we will delay extubation 07/20/2024: Hypernatremic today will monitor, renal function is improved to 2.38 today 07/21/2024: Sodium up to 150, will start D5W #3. Acute hyperbilirubinemia, transaminitis secondary to #1, shock: Admission CMP with T. bili 1.10, AST/ALT 1084/980, alk phos 282, continue treatments and evaluation as noted above #1, most recent repeat same day 07/16/2024 T. bili 1.30, AST/ALT 1136/948, alk phos 268, continue to trend. #4. Combined HFp/rEF: Noted history, cardiology following, most recent previous echo noted 05/08/2024 with LVEF 35%, normal LV size, stage II diastolic dysfunction, PASP 50 mmHg, plan repeat echocardiogram as noted, currently given shock liver holding aspirin therapy, resume once clinically appropriate, additionally holding statin and hypertensive regimen on pressor therapies as noted, cautiously administering fluids given underlying history. #5. Abnormal TSH: TSH 8.390, obtained in the acute setting, free T4 1.67, given his current presentation #1 would strongly recommend at this time only planning to continue repeat thyroid function studies outpatient once clinically resolved and improved. #6. History CVA/TIA: As noted above temporally holding aspirin and statin given shock liver, holding hypertensive regimen given hypotensive presentation requiring pressor therapies as noted, resume once clinically appropriate. #7. CAD/PAD, carotid disease: Status post CABG, left-sided endarterectomy, unclear peripheral interventions, as noted above temporally holding aspirin and statin given shock liver, holding hypertensive regimen given hypotensive presentation requiring pressor therapies as noted, resume once clinically appropriate. #8. Chronic macrocytic anemia: Admission hemoglobin 9.2, MCV 98, earlier in the admission, repeat 7.8, will continue to trend, previous baseline primarily 8-9, continue to trend. #9. Hypertension: Given presentation requiring 2 pressor therapies although dopamine primarily for significant complete heart block presentation, will defer all hypertensive medication. #10. Hyperlipidemia: Given shock liver will temporally hold statin therapy, resume once clinically appropriate. #11. Former tobacco use: Encourage continued tobacco cessation. #12. GI prophylaxis/DVT prophylaxis: IV PPI, heparin cautiously given shock liver. Charges/Coding Visit Charges Inpatient E&M: 26634 Subs Hosp L2
[2024-07-21] MEDS: Pantoprazole Sodium 40 MG in 0.9% Normal Saline (100mL MB+) 100 ML 330 MG IV (08:14)
[2024-07-21] MEDS: Dextrose 5%-Water (1000mL Bag) 1,000 ML 100 ML IV (08:15)
--- NOTE | 2024-07-21 09:18 | CASEMGMT ---
Pt was extubated this morning. RN CM to pt room at this time, family at bedside. Pt and pt are agreeable for further rehab if warranted. Therapy to work with the pt today. Pt states that she has a facility picked out but would like to review the list of SNF's again. Pt states that she does not know where the list currently is and requests another. SW updated and aware.
--- NOTE | 2024-07-21 09:29 | PN.CARD_ITS ---
Subjective Subjective Patient seen and evaluated Objective Data Vital Signs: Vital Signs Temp Pulse Resp BP Pulse Ox O2 Del Method O2 Flow Rate 98.5 F 70 16 150/51 H 89 Mechanical Ventilator 4 07/21/24 09:00 07/21/24 09:00 07/21/24 09:00 07/21/24 09:00 07/21/24 09:00 07/21/24 09:00 07/21/24 08:12 FiO2 35 07/21/24 09:00 Oxygen Flow Rate (L/min) 4 Oxygen Delivery Method Mechanical Ventilator Weight: 192 lb 10.944 oz Body Mass Index (BMI) 27.6 Intake & Output: Intake and Output for Last 24 Hours 07/19/24 07/20/24 07/21/24 23:59 23:59 23:59 Intake Total 3313.00 / 3323.00 1744.42 / 1749.42 509.25 / 509.25 Output Total 1395 / 1395 3375 / 3375 1375 / 1375 Balance 1918.00 / 1928.00 -1630.58 / -1625.58 -865.75 / -865.75 Lab / Micro Data 07/21/24 06:05 07/21/24 06:05 Labs: Laboratory Results - last 24 hr 07/21/24 06:05: WBC 9.5, RBC 3.10 L, Hgb 9.3 L, Hct 29.8 L, MCV 96.1 H, MCH 30.0, MCHC 31.2 L, RDW Std Deviation 56.6 H, RDW Coeff of [place] 16.3 H, Plt Count 122 L, MPV 9.9, Immature Gran % (Auto) 0.600, Neut % (Auto) 82.4 H, Lymph % (Auto) 4.2 L, [place] % (Auto) 10.8 H, Eos % (Auto) 1.9, Baso % (Auto) 0.1, A bsolute Neuts (auto) 7.8 H, Absolute Lymphs (auto) 0.40 L, Nucleated RBC % 0, S odium 150 H, Potassium 3.4 L, Chloride 119 H, Carbon Dioxide 26.0, Anion Gap 5, BUN 50 H, Creatinine 2.30 H, Estim Creat Clear Calc 22.92, Est GFR (MDRD) Af Amer 35 L, Est GFR (MDRD) Non-Af 29 L, BUN/Creatinine Ratio 21.7 H, Glucose 145 H, Calcium 8.6, Phosphorus 2.9, Magnesium 2.2 Micro: Microbiology 07/16/24 06:05 Blood Culture (Wb) - Line Draw Blood Culture - Final No growth in 5 days. 07/16/24 05:10 Blood Culture (Wb) - Femoral Artery Blood Culture - Final No growth in 5 days. Cardiology Labs/Tests 07/21/24 06:05: WBC 9.5, RBC 3.10 L, Hgb 9.3 L, Hct 29.8 L, MCV 96.1 H, MCH 30.0, MCHC 31.2 L, Plt Count 122 L, MPV 9.9, Immature Gran % (Auto) 0.600, Neut % (Auto) 82.4 H, Lymph % (Auto) 4.2 L, [place] % (Auto) 10.8 H, Eos % (Auto) 1.9, Baso % (Auto) 0.1, Absolute Neuts (auto) 7.8 H, Nucleated RBC % 0, Sodium 150 H, Potassium 3.4 L, Chloride 119 H, Carbon Dioxide 26.0, Anion Gap 5, BUN 50 H, C reatinine 2.30 H, Est GFR (MDRD) Af Amer 35 L, Est GFR (MDRD) Non-Af 29 L, B UN/Creatinine Ratio 21.7 H, Glucose 145 H, Calcium 8.6, Phosphorus 2.9, Magnesium 2.2 Rhythm: EKG: ECHO: Stress Test: Cardiac Cath: PCI: CT Surgery: Holter monitor: EPS: PPM: CXR: Chest CT Scan: Physical Exam Const Constitutional Narrative: Intubated, sedated and mechanically ventilated. No ventilator dyssynchrony noted. HEENT normocephalic and head/scalp atraumatic Mouth: endotracheal tube in place and OG tube in place Eyes conjunctivae normal and no scleral icterus Neck supple General: trachea midline and CVC in place Chest inspection of chest normal Resp normal respiratory effort Auscultation: Negative for rales, rhonchi or wheezes Cardio regular rate and regular rhythm GI normal to inspection, nondistended, normoactive bowel sounds Extremity General Extremity: edema bilateral lower extremity; Negative for clubbing Skin no rashes or lesions noted Neuro Sensorium / Orientation: sedated on vent Assessment & Plan Assessment/Plan (1) Cardiopulmonary arrest with successful resuscitation: PLAN: Will continue supportive measures as per critical care and hospitalist. (2) Complete heart block by electrocardiogram: PLAN: Patient presents with complete heart block Permanent pacemaker placed single-chamber successfully * Appears to be functioning well. * The plan is to continue the current supportive therapy (3) CHF (congestive heart failure): QUALIFIERS: Heart failure type: combined systolic and diastolic H eart failure chronicity: acute on chronic Qualified Code(s): I50.43 - Acute on chronic combined systolic (congestive) and diastolic (congestive) heart failure PLAN: Echocardiogram demonstrated an ejection fraction of approximately 50% Will continue with supportive measures (4) Atherosclerotic heart disease of [place] coronary artery without angina pectoris: QUALIFIERS: [place] vs. transplanted heart: [place] heart Qualified Code(s): I25.10 - Atherosclerotic heart disease of [place] coronary artery without angina pectoris PLAN: Patient has a known history of coronary artery disease status post coronary bypass surgery. (5) Paroxysmal atrial fibrillation: PLAN: Patient has a history of atrial fibrillation with a left bundle branch block. Will hold off on Eliquis for now (6) Left ventricular systolic dysfunction: PLAN: Patient was noted to have left ventricular systolic dysfunction estimated ejection fraction of 50%. Will optimize medical therapy. Can start being diuresed now. (7) CKD (chronic kidney disease) stage 4, GFR 15-29 ml/min: PLAN: Patient has known chronic kidney disease. (8) Essential hypertension: PLAN: Blood pressure appears to be elevated I would recommend that we add metoprolol 25 mg twice a day to his regimen. PLAN: Plan Overall he appears to be stable.
[2024-07-21] MEDS: Furosemide 40 MG/4 ML Vial IV ×2 (09:47→18:04)
[2024-07-21] MEDS: Piperacil/Tazobactam 3.375 GM in 0.9% Normal Saline (50mL MB+) 50 ML IV ×2 (09:49→21:03)
--- NOTE | 2024-07-21 10:29 | CASEMGMT ---
Social Work- SW participated in interdisciplinary rounds. Pt will be working with therapy today to direct d/c planning. Family reports that they lost the SNF list previously provided; SW to provide an additional list of SNF providers including quality and resource use data and consistent with the patient?s preferred geographic region, medical needs, and insurance network were provided from the [employer] Guide. SW remains available to follow. [facility]
[2024-07-21] MEDS: Potassium Chloride 20mEq/100mL 20 MEQ/100 ML IV.SOLN. 100 MEQ IV BOLUS ×2 (11:30→12:48)
[2024-07-21] MEDS: Metoprolol Tartrate 25 MG Tablet PO ×2 (11:33→21:04)
[2024-07-21] MEDS: CHLORHEXIDINE GLUC 2% CLOTH 1 EACH TOWELETTE TOPICAL (11:55)
[2024-07-22] VITALS (24 sets, daily range): BP systolic 112–144; BP diastolic 53–71; PULSE 69–97; RESP 10–21; TEMP 35.9–36.7; O2SAT 90–97; BMI 28.2
--- NOTE | 2024-07-22 03:44 | CPS ---
decreased fio2 to 35%
[2024-07-22] MEDS: 0.9% Saline Lock 10 ML Syringe IV ×3 (06:16→20:53)
[2024-07-22] MEDS: Heparin Injection (Vial) 5,000 UNIT/ML VIAL 5000 UNIT SC ×3 (06:16→20:49)
[2024-07-22 06:24] LABS: Absolute Lymphocyte Count 0.39 X10^3/uL (0.83-4.51); Absolute Neutrophil Count 9.4 X10^3/uL (2.0-7.7); Basophil# 0.02 X10^3/uL; Basophil% 0.2 % (0-1); Eosinophil# 0.13 X10^3/uL; Eosinophils% 1.2 % (0-5); Hematocrit 32.2 % (40-54); Hemoglobin 9.9 g/dL (13.0-16.5); Lymphocyte # 0.39 X10^3/ul (0.83-4.51); Lymphocyte % 3.6 % (19-41); Mean Corp Hgb Conc 30.7 g/dL (32-36); Mean Corpuscular Hgb 30.5 pg (27.0-32.0); Mean Corpuscular Volume 99.1 fL (80-94); Mean Platelet Vol. 10.2 fl (6.2-12.0); Monocyte# 0.93 X10^3/uL; Monocyte% 8.5 % (0-10); NRBC Flagged by Analyzer 0 % (0-5); Neutrophil # 9.41 X10^3/uL (2.7-7.7); Neutrophil % 85.8 % (47-70); POSITIVE DIFFERENTIAL YES; Platelet Count 133 K/mm3 (150-450); RBC Distribution Width CV 15.9 % (11.6-14.6); RBC Distribution Width SD 56.9 fl (35.1-43.9); Red Blood Count 3.25 M/mm3 (4.6-6.2)
[2024-07-22 06:39] LABS: Anion Gap 5 (5-15); BUN 51 mg/dL (7-18); BUN/Creat Ratio 22.3 RATIO (10-20); Chloride 112 mmol/L (98-107); Creatinine, Serum 2.29 mg/dL (0.70-1.30); EST Glomerular Filtration Rate 29 mL/min (>60); Est Glom Filt Rate - Afr Amer 35 mL/min (>60); Glucose 134 mg/dL (74-106); Magnesium 2.2 mg/dL (1.6-2.6); Phosphorus 4.3 mg/dL (2.5-4.9); Sodium Level 144 mmol/L (136-145)
[2024-07-22] MEDS: Metoprolol Tartrate 25 MG Tablet PO ×2 (08:45→20:55)
[2024-07-22] MEDS: Furosemide 40 MG/4 ML Vial IV ×2 (08:45→17:21)
[2024-07-22] MEDS: Pantoprazole Sodium 40 MG in 0.9% Normal Saline (100mL MB+) 100 ML 330 MG IV (08:46)
[2024-07-22] MEDS: Piperacil/Tazobactam 3.375 GM in 0.9% Normal Saline (50mL MB+) 50 ML IV ×2 (09:28→20:56)
--- NOTE | 2024-07-22 09:48 | PN.HOSP_ITS ---
Subjective Subjective Extubated yesterday, managing on 3 L nasal cannula Objective Data Objective Data Vital Signs: Vital Signs Temp Pulse Resp BP Pulse Ox O2 Del Method O2 Flow Rate 97.1 F L 70 16 112/56 L 92 Nasal Cannula 5 07/22/24 09:00 07/22/24 09:00 07/22/24 09:00 07/22/24 09:00 07/22/24 09:00 07/22/24 09:00 07/22/24 09:00 FiO2 35 07/22/24 02:50 Oxygen Flow Rate (L/min) 5 Oxygen Delivery Method Nasal Cannula Weight: 197 lb 5.019 oz Body Mass Index (BMI) 28.2 Intake & Output: Intake and Output for Last 24 Hours 07/21/24 07/22/24 07/23/24 03:59 03:59 03:59 Intake Total / 2541.25 / 2541.25 110 / 110 Output Total 3375 / 4475 2950 / 2950 300 / 300 Balance -1362.33 / -2461.08 -408.75 / -408.75 -190 / -190 Lab / Micro Data 07/22/24 06:15 07/22/24 06:15 Labs: Laboratory Results - last 24 hr 07/22/24 06:15: WBC 11.0, RBC 3.25 L, Hgb 9.9 L, Hct 32.2 L, MCV 99.1 H, MCH 30.5, MCHC 30.7 L, RDW Std Deviation 56.9 H, RDW Coeff of [place] 15.9 H, Plt Count 133 L, MPV 10.2, Immature Gran % (Auto) 0.700, Neut % (Auto) 85.8 H, Lymph % (Auto) 3.6 L, [place] % (Auto) 8.5, Eos % (Auto) 1.2, Baso % (Auto) 0.2, Absolute Neuts (auto) 9.4 H, Absolute Lymphs (auto) 0.39 L, Nucleated RBC % 0, Sodium 144, Potassium 4.0, Chloride 112 H, Carbon Dioxide 27.0, Anion Gap 5, BUN 51 H, Creatinine 2.29 H, Estim Creat Clear Calc 25.10, Est GFR (MDRD) Af Amer 35 L, E st GFR (MDRD) Non-Af 29 L, BUN/Creatinine Ratio 22.3 H, Glucose 134 H, Calcium 9.0, Phosphorus 4.3, Magnesium 2.2 Micro: Microbiology 07/16/24 06:05 Blood Culture (Wb) - Line Draw Blood Culture - Final No growth in 5 days. 07/16/24 05:10 Blood Culture (Wb) - Femoral Artery Blood Culture - Final No growth in 5 days. 07/16/24 15:40 Sputum, Tracheal Aspirate Gram Stain - Final 07/16/24 15:40 Sputum, Tracheal Aspirate Respiratory Culture - Final Mixed normal respiratory seb. No Streptococcus pneumoniae, beta-hemolytic Streptococcus or Staphylococcus aureus isolated. 07/16/24 05:20 Urine Catheter - Reyes Urine Culture - Final Culture exhibits no growth. 07/17/24 11:25 Mucosa - Nasopharyngeal Coronavirus COVID-19 PCR - Final 07/16/24 15:40 Mucosa - Nose Respiratory Panel (PCR) - Final 07/16/24 05:20 Urine Catheter - Reyes Legionella Antigen - Final 07/16/24 05:20 Urine Catheter - Reyes Streptococcus pneumoniae Antigen (M - Final Physical Exam Narrative General: Alert, Oriented x3, Cooperative, No apparent distress HEENT: Atraumatic, PERRLA, EOMI, Normocephalic Oral: Moist Mucosa Neck: Supple, No JVD Lungs: Diminished, Normal air movement, No rhonchi, No wheeze, No rales Cardiovascular: Regular rate, Regular Rhythm, Normal S1, Normal S2, No murmurs Abdomen: Soft, Non Tender, Non-Distended, No Hepato-splenomegaly Extremities: Edema, Capillary Refill Less than 3 Seconds Skin: No rashes, No breakdown Musculoskeletal: No Tenderness to Palpation of Joints or Extremities Neurological: No focal neurological deficits, Motor Exam 5/5 strength throughout, Sensory exam intact to light touch and pain Psych/Mental Status: Flat Assessment & Plan Assessment/Plan (1) Cardiogenic shock: PLAN: Plan #1. Acute hypoxic respiratory failure secondary to acute cardiopulmonary arrest with ROSC secondary to acute third-degree heart block with significant cardiogenic shock however does have significant leukocytosis with left shift thus some concern for possible infectious component, per current evaluation possibly bilateral lower lobe pneumonia of unclear organism, possibly aspiration component given respiratory failure and arrest as noted: Patient initial presentation with complete heart block with rate in the 20s, temporary pacer placed, heart rate improved, initiated on dopamine however required second vasopressor norepinephrine with central line in place per general surgery, continue intubated and sedated status, maintain on IV PPI, judicious fluids only given history, trend lactic acid per facility protocol, monitor acute kidney injury and liver injury given shock component, trending cardiac enzymes with initial 31-> 73-> 290 not surprising in the setting of cardiopulmonary arrest with CPR with ROSC, magnesium 2.1, maintain on IV vancomycin and Zosyn with MRSA screen requested empirically, will request sputum culture, full respiratory viral panel, urine antigens, procalcitonin, fisheries specialist team consulted per protocol, continue pacing parameters and interventions per cardiology direction, planned 07/17/2024 echocardiogram request. 07/17/2024: Possible permanent pacemaker if blood cultures remain negative and continues to have renal improvement in respiratory improvement. Currently being temporarily paced 07/18/2024: Blood cultures and urine cultures are negative 07/20/2024: Can likely discontinue antibiotics since cultures are negative. Drawing small tidal volumes still struggling to be extubated 07/21/2024: May need to pursue trach and PEG if family wants to go that route 07/22/2024: Extubated doing well #2. Acute kidney injury on CKD stage IV based on previous GFR trending secondary to #1, shock: Admission BUN/Cr 82/3.45 prior baseline creatinine noted to be 2.3-2.6 maximum. ED presentation with chest x-ray with mild bilateral airspace disease with small pleural effusions, urinalysis with no obvious evidence infection, blood culture x 2 and urine culture pending per ED given presentation and concern for possibility of overload quickly with aggressive fluids, continue judicious fluids only as needed, defer any nephrotoxic medications, continue vasopressors as noted above, continue to trend CMP. If not improving, worsening low threshold to involve nephrology if remains full code. 07/17/2024: Renal function staying stable continue with pressors 07/18/2024: Renal function is improving to 2.99 today 07/19/2024: Renal function continues to improve, will transfuse a second unit of blood as his hemoglobin only corrected to 77 given his history of heart failure and heart block. He is status post permanent pacemaker yesterday. He did have a spontaneous breathing trial today however his tidal volumes were not adequate so we will delay extubation 07/20/2024: Hypernatremic today will monitor, renal function is improved to 2.38 today 07/21/2024: Sodium up to 150, will start D5W 07/22/2024: Sodium down to 144 creatinine is also improving 2.29, does appear he is now in ATN so I do anticipate a continued but slow recovery of his renal function #3. Acute hyperbilirubinemia, transaminitis secondary to #1, shock: Admission CMP with T. bili 1.10, AST/ALT 1084/980, alk phos 282, continue treatments and evaluation as noted above #1, most recent repeat same day 07/16/2024 T. bili 1.30, AST/ALT 1136/948, alk phos 268, continue to trend. #4. Combined HFp/rEF: Noted history, cardiology following, most recent previous echo noted 05/08/2024 with LVEF 35%, normal LV size, stage II diastolic dysfunction, PASP 50 mmHg, plan repeat echocardiogram as noted, currently given shock liver holding aspirin therapy, resume once clinically appropriate, additionally holding statin and hypertensive regimen on pressor therapies as noted, cautiously administering fluids given underlying history. #5. Abnormal TSH: TSH 8.390, obtained in the acute setting, free T4 1.67, given his current presentation #1 would strongly recommend at this time only planning to continue repeat thyroid function studies outpatient once clinically resolved and improved. #6. History CVA/TIA: As noted above temporally holding aspirin and statin given shock liver, holding hypertensive regimen given hypotensive presentation requiring pressor therapies as noted, resume once clinically appropriate. #7. CAD/PAD, carotid disease: Status post CABG, left-sided endarterectomy, unclear peripheral interventions, as noted above temporally holding aspirin and statin given shock liver, holding hypertensive regimen given hypotensive presentation requiring pressor therapies as noted, resume once clinically appropriate. #8. Chronic macrocytic anemia: Admission hemoglobin 9.2, MCV 98, earlier in the admission, repeat 7.8, will continue to trend, previous baseline primarily 8-9, continue to trend. #9. Hypertension: Given presentation requiring 2 pressor therapies although dopamine primarily for significant complete heart block presentation, will defer all hypertensive medication. #10. Hyperlipidemia: Given shock liver will temporally hold statin therapy, resume once clinically appropriate. #11. Former tobacco use: Encourage continued tobacco cessation. #12. GI prophylaxis/DVT prophylaxis: IV PPI, heparin cautiously given shock liver. Charges/Coding Visit Charges Inpatient E&M: 47197 Subs Hosp L2
--- NOTE | 2024-07-22 10:50 | CASEMGMT ---
Social Work SW met w/pt, , daughter and two adult grandchildren in the room in regard to discharge plan. states she will take pt home and take care of family. Their other daughter lives nearby and is available to help, and 's siblings are also available to help as per . They would like [facility] and are also considering private hire through [employer]. SW did provide to the family a list of private hire agencies, and SW will update CM that pt would like [facility]. LARS Bowie
--- NOTE | 2024-07-22 14:07 | PN.CC_ITS ---
Objective Data Objective Data Vital Signs: Vital Signs Last response 3 Temperature 36.0 C L 07/22/24 13:00 Temperature Source Core 07/22/24 13:00 Pulse Rate 70 07/22/24 13:00 Pulse Strength Weak (1+) 07/22/24 08:22 Respiratory Rate 12 07/22/24 13:00 Respiratory Effort Non-Labored, Short of Breath 07/22/24 11:36 Respiratory Depth Normal 07/22/24 11:36 Respiratory Pattern Normal 07/22/24 11:36 Blood Pressure 133/59 H 07/22/24 13:00 Blood Pressure Mean 83 07/22/24 13:00 Blood Pressure Source Monitor 07/22/24 13:00 Blood Pressure Position Sitting 07/22/24 13:00 Blood Pressure Location Left Arm 07/22/24 13:00 Pulse Ox 92 07/22/24 13:00 Oxygen Delivery Method Nasal Cannula 07/22/24 13:00 Oxygen Flow Rate (L/min) 5 07/22/24 13:00 Fraction of Inspired Oxygen (FIO2) 35 07/22/24 02:50 I&O: I&O Last 24 Hours 3 07/21/24 07/22/24 07/22/24 23:59 11:59 23:59 Intake Total 2290 / 2889.25 160 / 210 50 / 210 Output Total 775 / 2950 1050 / 1050 Balance 1515 / -60.75 -890 / -840 50 / -840 I&O: Total Stay 3 07/16/24 00:27 thru 07/22/24 13:28 Intake Total 11419.78 Output Total 45353 Balance 8961.78 Current Meds Ordered / Administered: Current meds ordered / Administered 3 Generic Name Dose Route Start Last Admin Trade Name Freq PRN Reason Stop Dose Admin Chlorhexidine Gluconate 1 each 07/17/24 10:07/22/24 09:27 Chlorhexidine Gluc 2% Cloth 1 Each [place] TOPICAL Not Given DAILY HYACINTH Furosemide 40 mg 07/21/24 10:00 07/22/24 08:45 Furosemide 40 Mg/4 Ml Vial IV 40 mg BIDLX HYACINTH Administration Protocol Heparin Sodium (Porcine) 5,000 unit 07/17/24 06:00 07/22/24 06:16 Heparin Injection (Vial) 5,000 Unit/Ml Vial SC 5,000 unit Q8 HYACINTH Administration Pantoprazole Sodium 40 mg/ 110 mls @ 330 mls/hr 07/16/24 10:00 07/22/24 09:18 Sodium Chloride IV Infused Q24 HYACINTH Infusion Sodium Chloride 100 mls @ 15 mls/hr 07/16/24 04:16 07/19/24 16:50 IV Infused .Q6H40M PRN Infusion Saline Flush Sodium Chloride 100 mls @ 15 mls/hr 07/16/24 04:16 IV .Q6H40M PRN Additional IVPB Infusion Piperacillin Sod/Tazobactam 50 mls @ 12.5 mls/hr 07/16/24 06:00 07/22/24 13:28 Sod 3.375 gm/ Sodium Chloride IV Infused Q12 HYACINTH Infusion Sodium Chloride 100 mls @ 15 mls/hr 07/17/24 12:39 IV .Q6H40M PRN SALINE FLUSH Metoprolol Tartrate 25 mg 07/21/24 10:00 07/22/24 08:45 Metoprolol Tartrate 25 Mg Tablet PO 25 mg BID HYACINTH Administration Protocol Ondansetron HCl 4 mg 07/16/24 03:28 Ondansetron 4 Mg/2 Ml Vial IV Q8H PRN PRN NAUSEA/VOMITING Sodium Chloride 10 - 40 ml 07/16/24 04:16 07/22/24 06:16 0.9% Saline Lock 10 Ml Syringe IV 30 ml UD PRN Administration SALINE FLUSH Lab / Micro Data 07/22/24 06:15 07/22/24 06:15 Labs: Laboratory Results - last 24 hr 07/22/24 06:15: WBC 11.0, RBC 3.25 L, Hgb 9.9 L, Hct 32.2 L, MCV 99.1 H, MCH 30.5, MCHC 30.7 L, RDW Std Deviation 56.9 H, RDW Coeff of [place] 15.9 H, Plt Count 133 L, MPV 10.2, Immature Gran % (Auto) 0.700, Neut % (Auto) 85.8 H, Lymph % (Auto) 3.6 L, [place] % (Auto) 8.5, Eos % (Auto) 1.2, Baso % (Auto) 0.2, Absolute Neuts (auto) 9.4 H, Absolute Lymphs (auto) 0.39 L, Nucleated RBC % 0, Sodium 144, Potassium 4.0, Chloride 112 H, Carbon Dioxide 27.0, Anion Gap 5, BUN 51 H, Creatinine 2.29 H, Estim Creat Clear Calc 25.10, Est GFR (MDRD) Af Amer 35 L, E st GFR (MDRD) Non-Af 29 L, BUN/Creatinine Ratio 22.3 H, Glucose 134 H, Calcium 9.0, Phosphorus 4.3, Magnesium 2.2 Assessment and Plan . Assessment and plan: Assessment & Plan Assessment/Plan (1) Cardiogenic shock: (2) Septic shock: (3) Cardiopulmonary arrest with successful resuscitation: (4) Complete heart block by electrocardiogram: IMPRESSIONS: 1. Acute hypoxemic respiratory failure in the setting of cardiac arrest with ROSC 2. Complete heart block/history of paroxysmal atrial fibrillation 3. Multifactorial shock 4. Acute on chronic kidney disease 5. History of coronary artery disease/anemia/hypertension/hyperlipidemia Suggest: 1. continue current care 2, transfer to lower level of care is appropriate 3. will sign off but available as needed Critical Care Time: 25 minutes The entirety of this encounter was done via Telemedicine Physical Exam Const oriented x3 Constitutional Narrative: In good spirits HEENT normocephalic General Ear: hearing grossly impaired Mouth: oral and palatal mucosa normal Neck full ROM Resp normal respiratory effort Effort and Inspection: able to speak in complete sentences Subjective Subjective Extubated yesterday, doing surprisingly well
--- NOTE | 2024-07-22 23:59 | CPS ---
Attempted PAP therapy, patient then refused. On CPOX for the night 6L, 94%
[2024-07-23] VITALS (11 sets, daily range): BP systolic 132–146; BP diastolic 58–91; PULSE 70–71; RESP 15–18; TEMP 36.2–36.4; O2SAT 92–99; BMI 22.4
[2024-07-23] MEDS: Heparin Injection (Vial) 5,000 UNIT/ML VIAL 5000 UNIT SC ×3 (05:09→20:45)
[2024-07-23 07:16] LABS: Absolute Neutrophil Count 8.8 X10^3/uL (2.0-7.7); Basophil# 0.03 X10^3/uL; Basophil% 0.3 % (0-1); Eosinophil# 0.12 X10^3/uL; Eosinophils% 1.2 % (0-5); Hematocrit 36.8 % (40-54); Hemoglobin 11.3 g/dL (13.0-16.5); Lymphocyte % 4.8 % (19-41); Mean Corp Hgb Conc 30.7 g/dL (32-36); Mean Corpuscular Hgb 30.1 pg (27.0-32.0); Mean Corpuscular Volume 97.9 fL (80-94); Monocyte# 0.82 X10^3/uL; Monocyte% 7.9 % (0-10); NRBC Flagged by Analyzer 0 % (0-5); Neutrophil # 8.82 X10^3/uL (2.7-7.7); Neutrophil % 84.6 % (47-70); POSITIVE COUNT YES; POSITIVE DIFFERENTIAL YES; Platelet Count 163 K/mm3 (150-450); RBC Distribution Width CV 15.3 % (11.6-14.6); RBC Distribution Width SD 53.8 fl (35.1-43.9); Red Blood Count 3.76 M/mm3 (4.6-6.2); White Blood Count 10.4 K/mm3 (4.4-11.0)
[2024-07-23 07:36] LABS: Anion Gap 8 (5-15); BUN 54 mg/dL (7-18); BUN/Creat Ratio 22.3 RATIO (10-20); Calcium,Total 8.9 mg/dL (8.5-10.1); Chloride 111 mmol/L (98-107); Creatinine, Serum 2.42 mg/dL (0.70-1.30); EST Glomerular Filtration Rate 27 mL/min (>60); Est Glom Filt Rate - Afr Amer 33 mL/min (>60); Estimated Creatinine Clearance 21.16 ml/min; Glucose 103 mg/dL (74-106); Potassium 3.7 mmol/L (3.5-5.1); Sodium Level 141 mmol/L (136-145)
[2024-07-23 07:55] LABS: Differential Indicated SCAN CRITERIA MET
[2024-07-23] MEDS: 0.9% Saline Lock 10 ML Syringe IV ×2 (08:33→17:36)
[2024-07-23] MEDS: Metoprolol Tartrate 25 MG Tablet PO ×2 (08:33→20:45)
[2024-07-23] MEDS: Furosemide 40 MG/4 ML Vial IV ×2 (08:33→17:36)
--- NOTE | 2024-07-23 09:23 | PN.CARD_ITS ---
Subjective Subjective Patient seen and evaluated Objective Data Vital Signs: Vital Signs Temp Pulse Resp BP Pulse Ox O2 Del Method O2 Flow Rate 97.3 F L 70 16 140/69 H 97 Nasal Cannula 4 07/23/24 08:19 07/23/24 08:33 07/23/24 08:19 07/23/24 08:33 07/23/24 08:26 07/23/24 08:26 07/23/24 08:26 FiO2 35 07/22/24 02:50 Oxygen Flow Rate (L/min) 4 Oxygen Delivery Method Nasal Cannula Weight: 156 lb 4.924 oz Body Mass Index (BMI) 22.4 Intake & Output: Intake and Output for Last 24 Hours 07/21/24 07/22/24 07/23/24 23:59 23:59 23:59 Intake Total 2889.25 / 2889.25 270 / 270 50 / 50 Output Total 2450 / 2950 1600 / 1600 400 / 400 Balance 439.25 / -60.75 -1330 / -1330 -350 / -350 Lab / Micro Data 07/23/24 07:02 07/23/24 07:02 Labs: Laboratory Results - last 24 hr 07/23/24 07:02: WBC 10.4, RBC 3.76 L, Hgb 11.3 L, Hct 36.8 L, MCV 97.9 H, MCH 30.1, MCHC 30.7 L, RDW Std Deviation 53.8 H, RDW Coeff of [place] 15.3 H, Plt Count 163, MPV 11.0, Immature Gran % (Auto) 1.200 H, Neut % (Auto) 84.6 H, Lymph % (Auto) 4.8 L, [place] % (Auto) 7.9, Eos % (Auto) 1.2, Baso % (Auto) 0.3, Absolute Neuts (auto) 8.8 H, Absolute Lymphs (auto) 0.50 L, Nucleated RBC % 0, Sodium 141, Potassium 3.7, Chloride 111 H, Carbon Dioxide 22.0, Anion Gap 8, BUN 54 H, Creatinine 2.42 H, Estim Creat Clear Calc 21.16, Est GFR (MDRD) Af Amer 33 L, E st GFR (MDRD) Non-Af 27 L, BUN/Creatinine Ratio 22.3 H, Glucose 103, Calcium 8.9 Cardiology Labs/Tests 07/23/24 07:02: WBC 10.4, RBC 3.76 L, Hgb 11.3 L, Hct 36.8 L, MCV 97.9 H, MCH 30.1, MCHC 30.7 L, Plt Count 163, MPV 11.0, Immature Gran % (Auto) 1.200 H, Neut % (Auto) 84.6 H, Lymph % (Auto) 4.8 L, [place] % (Auto) 7.9, Eos % (Auto) 1.2, Baso % (Auto) 0.3, Absolute Neuts (auto) 8.8 H, Nucleated RBC % 0, Sodium 141, Potassium 3.7, Chloride 111 H, Carbon Dioxide 22.0, Anion Gap 8, BUN 54 H, C reatinine 2.42 H, Est GFR (MDRD) Af Amer 33 L, Est GFR (MDRD) Non-Af 27 L, B UN/Creatinine Ratio 22.3 H, Glucose 103, Calcium 8.9 Rhythm: EKG: ECHO: Stress Test: Cardiac Cath: PCI: CT Surgery: Holter monitor: EPS: PPM: CXR: Chest CT Scan: Physical Exam HEENT normocephalic and head/scalp atraumatic Mouth: endotracheal tube in place and OG tube in place Eyes conjunctivae normal and no scleral icterus Neck supple General: trachea midline and CVC in place Chest inspection of chest normal Resp normal respiratory effort Auscultation: Negative for rales, rhonchi or wheezes Cardio regular rate and regular rhythm GI normal to inspection, nondistended, normoactive bowel sounds Extremity General Extremity: edema bilateral lower extremity; Negative for clubbing Skin no rashes or lesions noted Neuro Sensorium / Orientation: sedated on vent Assessment & Plan Assessment/Plan (1) Cardiopulmonary arrest with successful resuscitation: PLAN: Will continue supportive measures with doing well and extubated (2) Complete heart block by electrocardiogram: PLAN: Patient presents with complete heart block Permanent pacemaker placed single-chamber successfully * Appears to be functioning well. * The plan is to continue the current supportive therapy (3) CHF (congestive heart failure): QUALIFIERS: Heart failure type: combined systolic and diastolic H eart failure chronicity: acute on chronic Qualified Code(s): I50.43 - Acute on chronic combined systolic (congestive) and diastolic (congestive) heart failure PLAN: Echocardiogram demonstrated an ejection fraction of approximately 50% Will continue with supportive measures (4) Atherosclerotic heart disease of [place] coronary artery without angina pectoris: QUALIFIERS: [place] vs. transplanted heart: [place] heart Qualified Code(s): I25.10 - Atherosclerotic heart disease of [place] coronary artery without angina pectoris PLAN: Patient has a known history of coronary artery disease status post coronary bypass surgery. (5) Paroxysmal atrial fibrillation: PLAN: Patient has a history of atrial fibrillation with a left bundle branch block. Will hold off on Eliquis for now (6) Left ventricular systolic dysfunction: PLAN: Patient was noted to have left ventricular systolic dysfunction estimated ejection fraction of 50%. Will optimize medical therapy. (7) CKD (chronic kidney disease) stage 4, GFR 15-29 ml/min: PLAN: Patient has known chronic kidney disease. (8) Essential hypertension: PLAN: Blood pressure appears to be elevated I would recommend that we add metoprolol 25 mg twice a day to his regimen. PLAN: Plan Overall he appears to be stable.
--- NOTE | 2024-07-23 10:07 | PN.HOSP_ITS ---
Subjective Subjective No issues overnight, maintaining oxygen saturations on 6 L nasal cannula Objective Data Objective Data Vital Signs: Vital Signs Temp Pulse Resp BP Pulse Ox O2 Del Method O2 Flow Rate 97.3 F L 70 16 140/69 H 97 Nasal Cannula 4 07/23/24 08:19 07/23/24 08:33 07/23/24 08:19 07/23/24 08:33 07/23/24 08:26 07/23/24 08:26 07/23/24 08:26 FiO2 35 07/22/24 02:50 Oxygen Flow Rate (L/min) 4 Oxygen Delivery Method Nasal Cannula Weight: 156 lb 4.924 oz Body Mass Index (BMI) 22.4 Intake & Output: Intake and Output for Last 24 Hours 07/22/24 07/23/24 07/24/24 03:59 03:59 03:59 Intake Total 2541.25 / 2541.25 270 / 270 Output Total 2950 / 2950 1100 / 1100 400 / 400 Balance -408.75 / -408.75 -830 / -830 -400 / -400 Lab / Micro Data 07/23/24 07:02 07/23/24 07:02 Labs: Laboratory Results - last 24 hr 07/23/24 07:02: WBC 10.4, RBC 3.76 L, Hgb 11.3 L, Hct 36.8 L, MCV 97.9 H, MCH 30.1, MCHC 30.7 L, RDW Std Deviation 53.8 H, RDW Coeff of [place] 15.3 H, Plt Count 163, MPV 11.0, Immature Gran % (Auto) 1.200 H, Neut % (Auto) 84.6 H, Lymph % (Auto) 4.8 L, [place] % (Auto) 7.9, Eos % (Auto) 1.2, Baso % (Auto) 0.3, Absolute Neuts (auto) 8.8 H, Absolute Lymphs (auto) 0.50 L, Nucleated RBC % 0, Sodium 141, Potassium 3.7, Chloride 111 H, Carbon Dioxide 22.0, Anion Gap 8, BUN 54 H, Creatinine 2.42 H, Estim Creat Clear Calc 21.16, Est GFR (MDRD) Af Amer 33 L, E st GFR (MDRD) Non-Af 27 L, BUN/Creatinine Ratio 22.3 H, Glucose 103, Calcium 8.9 Micro: Microbiology 07/16/24 06:05 Blood Culture (Wb) - Line Draw Blood Culture - Final No growth in 5 days. 07/16/24 05:10 Blood Culture (Wb) - Femoral Artery Blood Culture - Final No growth in 5 days. 07/16/24 15:40 Sputum, Tracheal Aspirate Gram Stain - Final 07/16/24 15:40 Sputum, Tracheal Aspirate Respiratory Culture - Final Mixed normal respiratory seb. No Streptococcus pneumoniae, beta-hemolytic Streptococcus or Staphylococcus aureus isolated. 07/16/24 05:20 Urine Catheter - Reyes Urine Culture - Final Culture exhibits no growth. 07/17/24 11:25 Mucosa - Nasopharyngeal Coronavirus COVID-19 PCR - Final 07/16/24 15:40 Mucosa - Nose Respiratory Panel (PCR) - Final 07/16/24 05:20 Urine Catheter - Reyes Legionella Antigen - Final 07/16/24 05:20 Urine Catheter - Reyes Streptococcus pneumoniae Antigen (M - Final Physical Exam Narrative General: Alert, Oriented x3, Cooperative, No apparent distress HEENT: Atraumatic, PERRLA, EOMI, Normocephalic Oral: Moist Mucosa Neck: Supple, No JVD Lungs: Diminished, Normal air movement, No rhonchi, No wheeze, No rales Cardiovascular: Regular rate, Regular Rhythm, Normal S1, Normal S2, No murmurs Abdomen: Soft, Non Tender, Non-Distended, No Hepato-splenomegaly Extremities: Edema, Capillary Refill Less than 3 Seconds Skin: No rashes, No breakdown Musculoskeletal: No Tenderness to Palpation of Joints or Extremities Neurological: No focal neurological deficits, Motor Exam 5/5 strength throughout, Sensory exam intact to light touch and pain Psych/Mental Status: Flat Assessment & Plan Assessment/Plan (1) Cardiogenic shock: PLAN: Plan #1. Acute hypoxic respiratory failure secondary to acute cardiopulmonary arrest with ROSC secondary to acute third-degree heart block with significant cardiogenic shock however does have significant leukocytosis with left shift thus some concern for possible infectious component, per current evaluation possibly bilateral lower lobe pneumonia of unclear organism, possibly aspiration component given respiratory failure and arrest as noted: Patient initial presentation with complete heart block with rate in the 20s, temporary pacer placed, heart rate improved, initiated on dopamine however required second vasopressor norepinephrine with central line in place per general surgery, continue intubated and sedated status, maintain on IV PPI, judicious fluids only given history, trend lactic acid per facility protocol, monitor acute kidney injury and liver injury given shock component, trending cardiac enzymes with initial 31-> 73-> 290 not surprising in the setting of cardiopulmonary arrest with CPR with ROSC, magnesium 2.1, maintain on IV vancomycin and Zosyn with MRSA screen requested empirically, will request sputum culture, full respiratory viral panel, urine antigens, procalcitonin, glass lined tank repairer team consulted per protocol, continue pacing parameters and interventions per cardiology direction, planned 07/17/2024 echocardiogram request. 07/17/2024: Possible permanent pacemaker if blood cultures remain negative and continues to have renal improvement in respiratory improvement. Currently being temporarily paced 07/18/2024: Blood cultures and urine cultures are negative 07/20/2024: Can likely discontinue antibiotics since cultures are negative. Drawing small tidal volumes still struggling to be extubated 07/21/2024: May need to pursue trach and PEG if family wants to go that route 07/22/2024: Extubated doing well 07/23/2024: PT/OT for discharge planning will need SNF #2. Acute kidney injury on CKD stage IV based on previous GFR trending secondary to #1, shock: Admission BUN/Cr 82/3.45 prior baseline creatinine noted to be 2.3-2.6 maximum. ED presentation with chest x-ray with mild bilateral airspace disease with small pleural effusions, urinalysis with no obvious evidence infection, blood culture x 2 and urine culture pending per ED given presentation and concern for possibility of overload quickly with aggressive fluids, continue judicious fluids only as needed, defer any nephrotoxic medications, continue vasopressors as noted above, continue to trend CMP. If not improving, worsening low threshold to involve nephrology if remains full code. 07/17/2024: Renal function staying stable continue with pressors 07/18/2024: Renal function is improving to 2.99 today 07/19/2024: Renal function continues to improve, will transfuse a second unit of blood as his hemoglobin only corrected to 77 given his history of heart failure and heart block. He is status post permanent pacemaker yesterday. He did have a spontaneous breathing trial today however his tidal volumes were not adequate so we will delay extubation 07/20/2024: Hypernatremic today will monitor, renal function is improved to 2.38 today 07/21/2024: Sodium up to 150, will start D5W 07/22/2024: Sodium down to 144 creatinine is also improving 2.29, does appear he is now in ATN so I do anticipate a continued but slow recovery of his renal function 07/23/2024: Continue with D5W #3. Acute hyperbilirubinemia, transaminitis secondary to #1, shock: Admission CMP with T. bili 1.10, AST/ALT 1084/980, alk phos 282, continue treatments and evaluation as noted above #1, most recent repeat same day 07/16/2024 T. bili 1.30, AST/ALT 1136/948, alk phos 268, continue to trend. #4. Combined HFp/rEF: Noted history, cardiology following, most recent previous echo noted 05/08/2024 with LVEF 35%, normal LV size, stage II diastolic dysfunction, PASP 50 mmHg, plan repeat echocardiogram as noted, currently given shock liver holding aspirin therapy, resume once clinically appropriate, additionally holding statin and hypertensive regimen on pressor therapies as noted, cautiously administering fluids given underlying history. #5. Abnormal TSH: TSH 8.390, obtained in the acute setting, free T4 1.67, given his current presentation #1 would strongly recommend at this time only planning to continue repeat thyroid function studies outpatient once clinically resolved and improved. #6. History CVA/TIA: As noted above temporally holding aspirin and statin given shock liver, holding hypertensive regimen given hypotensive presentation requiring pressor therapies as noted, resume once clinically appropriate. #7. CAD/PAD, carotid disease: Status post CABG, left-sided endarterectomy, unclear peripheral interventions, as noted above temporally holding aspirin and statin given shock liver, holding hypertensive regimen given hypotensive presentation requiring pressor therapies as noted, resume once clinically appropriate. #8. Chronic macrocytic anemia: Admission hemoglobin 9.2, MCV 98, earlier in the admission, repeat 7.8, will continue to trend, previous baseline primarily 8-9, continue to trend. #9. Hypertension: Given presentation requiring 2 pressor therapies although dopamine primarily for significant complete heart block presentation, will defer all hypertensive medication. #10. Hyperlipidemia: Given shock liver will temporally hold statin therapy, resume once clinically appropriate. #11. Former tobacco use: Encourage continued tobacco cessation. #12. GI prophylaxis/DVT prophylaxis: IV PPI, heparin cautiously given shock liver. Charges/Coding Visit Charges Inpatient E&M: 71662 Subs Hosp L2
[2024-07-23] MEDS: Pantoprazole Sodium 40 MG in 0.9% Normal Saline (100mL MB+) 100 ML 330 MG IV (11:07)
--- NOTE | 2024-07-23 12:57 | PN.CC_ITS ---
Objective Data Objective Data Vital Signs: Vital Signs Last response 3 Temperature 36.3 C L 07/23/24 08:19 Temperature Source Oral 07/23/24 08:19 Pulse Rate 70 07/23/24 08:33 Pulse Strength Normal (2+) 07/22/24 20:40 Respiratory Rate 16 07/23/24 08:19 Respiratory Effort Normal, Non-Labored 07/23/24 08:26 Respiratory Depth Normal 07/23/24 08:26 Respiratory Pattern Normal 07/23/24 08:26 Blood Pressure 140/69 H 07/23/24 08:33 Blood Pressure Mean 92 07/23/24 08:19 Blood Pressure Source Monitor 07/23/24 08:19 Blood Pressure Position Supine 07/23/24 08:19 Blood Pressure Location Right Arm 07/23/24 08:19 Pulse Ox 92 07/23/24 10:23 Oxygen Delivery Method Nasal Cannula 07/23/24 08:26 Oxygen Flow Rate (L/min) 4 07/23/24 10:25 Fraction of Inspired Oxygen (FIO2) 35 07/22/24 02:50 I&O: I&O Last 24 Hours 3 07/22/24 07/23/24 07/23/24 23:59 11:59 23:59 Intake Total 110 / 270 50 / 160 110 / 160 Output Total 550 / 1600 400 / 975 575 / 975 Balance -440 / -1330 -350 / -815 -465 / -815 I&O: Total Stay 3 07/16/24 00:27 thru 07/23/24 12:03 Intake Total 20057.78 Output Total 88033 Balance 7656.78 Current Meds Ordered / Administered: Current meds ordered / Administered 3 Generic Name Dose Route Start Last Admin Trade Name Freq PRN Reason Stop Dose Admin Amlodipine Besylate 5 mg 07/24/24 10:00 Amlodipine 5 Mg Tablet PO DAILY [facility] Protocol Atorvastatin Calcium 20 mg 07/23/24 21:00 Atorvastatin Calcium 20 Mg Tablet PO QPM [facility] Ferrous Sulfate 325 mg 07/24/24 08:00 Ferrous Sulfate 325 Mg Tablet PO DAILYCM [facility] Furosemide 40 mg 07/21/24 10:00 07/23/24 08:33 Furosemide 40 Mg/4 Ml Vial IV 40 mg BIDLX [facility] Administration Protocol Heparin Sodium (Porcine) 5,000 unit 07/17/24 06:00 07/23/24 05:09 Heparin Injection (Vial) 5,000 Unit/Ml Vial SC 5,000 unit Q8 HYACINTH Administration Pantoprazole Sodium 40 mg/ 110 mls @ 330 mls/hr 07/16/24 10:00 07/23/24 12:03 Sodium Chloride IV Infused Q24 HYACINTH Infusion Sodium Chloride 100 mls @ 15 mls/hr 07/16/24 04:16 07/19/24 16:50 IV Infused .Q6H40M PRN Infusion Saline Flush Sodium Chloride 100 mls @ 15 mls/hr 07/16/24 04:16 IV .Q6H40M PRN Additional IVPB Infusion Sodium Chloride 100 mls @ 15 mls/hr 07/17/24 12:39 IV .Q6H40M PRN SALINE FLUSH Piperacillin Sod/Tazobactam 50 mls @ 12.5 mls/hr 07/23/24 14:00 Sod 3.375 gm/ Sodium Chloride IV Q8 HYACINTH Metoprolol Tartrate 25 mg 07/21/24 10:00 07/23/24 08:33 Metoprolol Tartrate 25 Mg Tablet PO 25 mg BID HYACINTH Administration Protocol Ondansetron HCl 4 mg 07/16/24 03:28 Ondansetron 4 Mg/2 Ml Vial IV Q8H PRN PRN NAUSEA/VOMITING Sodium Chloride 10 - 40 ml 07/16/24 04:16 07/23/24 08:33 0.9% Saline Lock 10 Ml Syringe IV 10 ml UD PRN Administration SALINE FLUSH Lab / Micro Data Attestation: I reviewed the patient's lab results. 07/23/24 07:02 07/23/24 07:02 Labs: Laboratory Results - last 24 hr 07/23/24 07:02: WBC 10.4, RBC 3.76 L, Hgb 11.3 L, Hct 36.8 L, MCV 97.9 H, MCH 30.1, MCHC 30.7 L, RDW Std Deviation 53.8 H, RDW Coeff of [place] 15.3 H, Plt Count 163, MPV 11.0, Immature Gran % (Auto) 1.200 H, Neut % (Auto) 84.6 H, Lymph % (Auto) 4.8 L, [place] % (Auto) 7.9, Eos % (Auto) 1.2, Baso % (Auto) 0.3, Absolute Neuts (auto) 8.8 H, Absolute Lymphs (auto) 0.50 L, Nucleated RBC % 0, Sodium 141, Potassium 3.7, Chloride 111 H, Carbon Dioxide 22.0, Anion Gap 8, BUN 54 H, Creatinine 2.42 H, Estim Creat Clear Calc 21.16, Est GFR (MDRD) Af Amer 33 L, E st GFR (MDRD) Non-Af 27 L, BUN/Creatinine Ratio 22.3 H, Glucose 103, Calcium 8.9 Assessment and Plan . Assessment and plan: IMPRESSIONS: 1. Acute hypoxemic respiratory failure in the setting of cardiac arrest with ROSC- plus long-standing hypoxemia which is probably multifactorial 2. Complete heart block/history of paroxysmal atrial fibrillation 3. Multifactorial shock, resolved 4. Acute on chronic kidney disease 5. History of coronary artery disease/anemia/hypertension/hyperlipidemia Suggest: 1. continue current care 2, transfer to lower level of care is appropriate 3. Outpatient follow up with Dr. Kirkland is anticipated Critical Care Time: The entirety of this encounter was done via Telemedicine Physical Exam Const alert and oriented x3 General Appearance: cooperative Eyes PERRL and no scleral icterus Neck no JVD Resp Effort and Inspection: able to speak in complete sentences and uses accessory muscles Auscultation: diminished lung sounds Cardio regular rate and regular rhythm Subjective Subjective Looks to be stable though baseline respiratory compromise is evident- refused NIV last night. States he has minimal/ remote smoking history so nature of lung dysfunction a bit unclear.
[2024-07-23] MEDS: Piperacil/Tazobactam 3.375 GM in 0.9% Normal Saline (50mL MB+) 50 ML IV ×2 (13:17→20:42)
[2024-07-23] MEDS: Atorvastatin Calcium 20 MG Tablet PO (20:45)
[2024-07-24] VITALS (8 sets, daily range): BP systolic 134–167; BP diastolic 54–64; PULSE 69–72; RESP 14–20; TEMP 36.4–36.7; O2SAT 88–97; BMI 22.1
--- NOTE | 2024-07-24 02:41 | CPS ---
pt declines use of bipap.
[2024-07-24] MEDS: Piperacil/Tazobactam 3.375 GM in 0.9% Normal Saline (50mL MB+) 50 ML IV ×4 (05:12→20:46)
[2024-07-24] MEDS: Heparin Injection (Vial) 5,000 UNIT/ML VIAL 5000 UNIT SC ×3 (05:12→20:46)
[2024-07-24 07:14] LABS: Absolute Lymphocyte Count 0.37 X10^3/uL (0.83-4.51); Absolute Neutrophil Count 9.2 X10^3/uL (2.0-7.7); Basophil# 0.03 X10^3/uL; Basophil% 0.3 % (0-1); Eosinophil# 0.07 X10^3/uL; Eosinophils% 0.7 % (0-5); Hematocrit 34.6 % (40-54); Hemoglobin 10.6 g/dL (13.0-16.5); Lymphocyte # 0.37 X10^3/ul (0.83-4.51); Lymphocyte % 3.5 % (19-41); Mean Corp Hgb Conc 30.6 g/dL (32-36); Mean Corpuscular Hgb 29.9 pg (27.0-32.0); Mean Corpuscular Volume 97.5 fL (80-94); Mean Platelet Vol. 10.6 fl (6.2-12.0); Monocyte# 0.75 X10^3/uL; Monocyte% 7.1 % (0-10); NRBC Flagged by Analyzer 0.2 % (0-5); Neutrophil # 9.18 X10^3/uL (2.7-7.7); Neutrophil % 87.4 % (47-70); POSITIVE DIFFERENTIAL YES; Platelet Count 227 K/mm3 (150-450); RBC Distribution Width CV 15.3 % (11.6-14.6); RBC Distribution Width SD 53.2 fl (35.1-43.9); Red Blood Count 3.55 M/mm3 (4.6-6.2); White Blood Count 10.5 K/mm3 (4.4-11.0)
[2024-07-24 07:47] LABS: Anion Gap 8 (5-15); BUN 55 mg/dL (7-18); BUN/Creat Ratio 23.1 RATIO (10-20); Calcium,Total 8.9 mg/dL (8.5-10.1); Chloride 107 mmol/L (98-107); Creatinine, Serum 2.38 mg/dL (0.70-1.30); EST Glomerular Filtration Rate 28 mL/min (>60); Est Glom Filt Rate - Afr Amer 33 mL/min (>60); Glucose 102 mg/dL (74-106); Potassium 3.2 mmol/L (3.5-5.1); Sodium Level 142 mmol/L (136-145)
--- NOTE | 2024-07-24 09:51 | PN.HOSP_ITS ---
Subjective Subjective No issues overnight, doing well. Maintaining oxygen saturations on 4 to 5 L nasal cannula Objective Data Objective Data Vital Signs: Vital Signs Temp Pulse Resp BP Pulse Ox O2 Del Method O2 Flow Rate 97.8 F 70 18 151/64 H 97 Nasal Cannula 5 07/24/24 08:04 07/24/24 08:04 07/24/24 08:04 07/24/24 08:04 07/24/24 08:04 07/24/24 08:14 07/24/24 08:04 FiO2 35 07/22/24 02:50 Oxygen Flow Rate (L/min) 5 Oxygen Delivery Method Nasal Cannula Weight: 154 lb 12.232 oz Body Mass Index (BMI) 22.1 Intake & Output: Intake and Output for Last 24 Hours 07/23/24 07/24/24 07/25/24 03:59 03:59 03:59 Intake Total 270 / 270 850 / 850 290 / 290 Output Total 1100 / 1100 1800 / 1800 400 / 400 Balance -830 / -830 -950 / -950 -110 / -110 Lab / Micro Data 07/24/24 06:46 07/24/24 06:46 Labs: Laboratory Results - last 24 hr 07/24/24 06:46: WBC 10.5, RBC 3.55 L, Hgb 10.6 L, Hct 34.6 L, MCV 97.5 H, MCH 29.9, MCHC 30.6 L, RDW Std Deviation 53.2 H, RDW Coeff of [place] 15.3 H, Plt Count 227, MPV 10.6, Immature Gran % (Auto) 1.000 H, Neut % (Auto) 87.4 H, Lymph % (Auto) 3.5 L, [place] % (Auto) 7.1, Eos % (Auto) 0.7, Baso % (Auto) 0.3, Absolute Neuts (auto) 9.2 H, Absolute Lymphs (auto) 0.37 L, Nucleated RBC % 0.2, Sodium 142, Potassium 3.2 L, Chloride 107, Carbon Dioxide 27.0, Anion Gap 8, BUN 55 H, Creatinine 2.38 H, Estim Creat Clear Calc 21.30, Est GFR (MDRD) Af Amer 33 L, E st GFR (MDRD) Non-Af 28 L, BUN/Creatinine Ratio 23.1 H, Glucose 102, Calcium 8.9 Micro: Microbiology 07/16/24 06:05 Blood Culture (Wb) - Line Draw Blood Culture - Final No growth in 5 days. 07/16/24 05:10 Blood Culture (Wb) - Femoral Artery Blood Culture - Final No growth in 5 days. 07/16/24 15:40 Sputum, Tracheal Aspirate Gram Stain - Final 07/16/24 15:40 Sputum, Tracheal Aspirate Respiratory Culture - Final Mixed normal respiratory seb. No Streptococcus pneumoniae, beta-hemolytic Streptococcus or Staphylococcus aureus isolated. 07/16/24 05:20 Urine Catheter - Reyes Urine Culture - Final Culture exhibits no growth. 07/17/24 11:25 Mucosa - Nasopharyngeal Coronavirus COVID-19 PCR - Final 07/16/24 15:40 Mucosa - Nose Respiratory Panel (PCR) - Final 07/16/24 05:20 Urine Catheter - Reyes Legionella Antigen - Final 07/16/24 05:20 Urine Catheter - Reyes Streptococcus pneumoniae Antigen (M - Final Physical Exam Narrative General: Alert, Oriented x3, Cooperative, No apparent distress HEENT: Atraumatic, PERRLA, EOMI, Normocephalic Oral: Moist Mucosa Neck: Supple, No JVD Lungs: Diminished, Normal air movement, No rhonchi, No wheeze, No rales Cardiovascular: Regular rate, Regular Rhythm, Normal S1, Normal S2, No murmurs Abdomen: Soft, Non Tender, Non-Distended, No Hepato-splenomegaly Extremities: Edema, Capillary Refill Less than 3 Seconds Skin: No rashes, No breakdown Musculoskeletal: No Tenderness to Palpation of Joints or Extremities Neurological: No focal neurological deficits, Motor Exam 5/5 strength throughout, Sensory exam intact to light touch and pain Psych/Mental Status: Flat Assessment & Plan Assessment/Plan (1) Cardiogenic shock: PLAN: Plan #1. Acute hypoxic respiratory failure secondary to acute cardiopulmonary arrest with ROSC secondary to acute third-degree heart block with significant cardiogenic shock however does have significant leukocytosis with left shift thus some concern for possible infectious component, per current evaluation possibly bilateral lower lobe pneumonia of unclear organism, possibly aspiration component given respiratory failure and arrest as noted: Patient initial presentation with complete heart block with rate in the 20s, temporary pacer placed, heart rate improved, initiated on dopamine however required second vasopressor norepinephrine with central line in place per general surgery, continue intubated and sedated status, maintain on IV PPI, judicious fluids only given history, trend lactic acid per facility protocol, monitor acute kidney injury and liver injury given shock component, trending cardiac enzymes with initial 31-> 73-> 290 not surprising in the setting of cardiopulmonary arrest with CPR with ROSC, magnesium 2.1, maintain on IV vancomycin and Zosyn with MRSA screen requested empirically, will request sputum culture, full respiratory viral panel, urine antigens, procalcitonin, director of litigation team consulted per protocol, continue pacing parameters and interventions per cardiology direction, planned 07/17/2024 echocardiogram request. 07/17/2024: Possible permanent pacemaker if blood cultures remain negative and continues to have renal improvement in respiratory improvement. Currently being temporarily paced 07/18/2024: Blood cultures and urine cultures are negative 07/20/2024: Can likely discontinue antibiotics since cultures are negative. Drawing small tidal volumes still struggling to be extubated 07/21/2024: May need to pursue trach and PEG if family wants to go that route 07/22/2024: Extubated doing well 07/23/2024: PT/OT for discharge planning will need SNF 07/24/2024: Awaiting pre-CERT #2. Acute kidney injury on CKD stage IV based on previous GFR trending secondary to #1, shock: Admission BUN/Cr 82/3.45 prior baseline creatinine noted to be 2.3-2.6 maximum. ED presentation with chest x-ray with mild bilateral airspace disease with small pleural effusions, urinalysis with no obvious evidence infection, blood culture x 2 and urine culture pending per ED given presentation and concern for possibility of overload quickly with aggressive fluids, continue judicious fluids only as needed, defer any nephrotoxic medications, continue vasopressors as noted above, continue to trend CMP. If not improving, worsening low threshold to involve nephrology if remains full code. 07/17/2024: Renal function staying stable continue with pressors 07/18/2024: Renal function is improving to 2.99 today 07/19/2024: Renal function continues to improve, will transfuse a second unit of blood as his hemoglobin only corrected to 77 given his history of heart failure and heart block. He is status post permanent pacemaker yesterday. He did have a spontaneous breathing trial today however his tidal volumes were not adequate so we will delay extubation 07/20/2024: Hypernatremic today will monitor, renal function is improved to 2.38 today 07/21/2024: Sodium up to 150, will start D5W 07/22/2024: Sodium down to 144 creatinine is also improving 2.29, does appear he is now in ATN so I do anticipate a continued but slow recovery of his renal function 07/23/2024: Continue with D5W 07/24/2024: Discontinued D5W yesterday allow p.o. intake, sodium is 142 #3. Acute hyperbilirubinemia, transaminitis secondary to #1, shock: Admission CMP with T. bili 1.10, AST/ALT 1084/980, alk phos 282, continue treatments and evaluation as noted above #1, most recent repeat same day 07/16/2024 T. bili 1.30, AST/ALT 1136/948, alk phos 268, continue to trend. #4. Combined HFp/rEF: Noted history, cardiology following, most recent previous echo noted 05/08/2024 with LVEF 35%, normal LV size, stage II diastolic dysfunction, PASP 50 mmHg, plan repeat echocardiogram as noted, currently given shock liver holding aspirin therapy, resume once clinically appropriate, additionally holding statin and hypertensive regimen on pressor therapies as noted, cautiously administering fluids given underlying history. #5. Abnormal TSH: TSH 8.390, obtained in the acute setting, free T4 1.67, given his current presentation #1 would strongly recommend at this time only planning to continue repeat thyroid function studies outpatient once clinically resolved and improved. #6. History CVA/TIA: As noted above temporally holding aspirin and statin given shock liver, holding hypertensive regimen given hypotensive presentation requiring pressor therapies as noted, resume once clinically appropriate. #7. CAD/PAD, carotid disease: Status post CABG, left-sided endarterectomy, unclear peripheral interventions, as noted above temporally holding aspirin and statin given shock liver, holding hypertensive regimen given hypotensive presentation requiring pressor therapies as noted, resume once clinically appropriate. #8. Chronic macrocytic anemia: Admission hemoglobin 9.2, MCV 98, earlier in the admission, repeat 7.8, will continue to trend, previous baseline primarily 8-9, continue to trend. #9. Hypertension: Given presentation requiring 2 pressor therapies although dopamine primarily for significant complete heart block presentation, will defer all hypertensive medication. #10. Hyperlipidemia: Given shock liver will temporally hold statin therapy, resume once clinically appropriate. #11. Former tobacco use: Encourage continued tobacco cessation. #12. GI prophylaxis/DVT prophylaxis: IV PPI, heparin cautiously given shock liver. Charges/Coding Visit Charges Inpatient E&M: 09812 Subs Hosp L2
[2024-07-24] MEDS: Pantoprazole Sodium 40 MG in 0.9% Normal Saline (100mL MB+) 100 ML 330 MG IV (11:12)
[2024-07-24] MEDS: Potassium Chloride Oral Tablet 20 MEQ 40 MEQ PO (11:12)
[2024-07-24] MEDS: amLODIPine 5 MG Tablet PO (11:13)
[2024-07-24] MEDS: Furosemide 40 MG/4 ML Vial IV ×2 (11:13→17:24)
[2024-07-24] MEDS: Ferrous Sulfate 325 MG Tablet PO (11:13)
[2024-07-24] MEDS: Metoprolol Tartrate 25 MG Tablet PO ×2 (11:14→20:45)
--- NOTE | 2024-07-24 11:20 | SP.MBSS_ITS ---
Modified Barium Swallow Patient Information Study Date: 07/24/24 Study Time: 10:00 Direct Billable Minutes: 150 Total Minutes procedure & reportin Diagnosis: T17.908A Aspiration into airway Referring Physician: Tanvir Nina Reason for Referral: Objectively assess swallow function, assess risk for aspiration, and determine recommendations for least restrictive diet textures and compensatory strategies to improve safety of swallow.? Medical History: An 89-year-old male presented to the [facility] ED on 07/16/2024 with acute hypoxic respiratory failure following cardiopulmonary arrest, with return of spontaneous circulation (ROSC) due to acute third-degree heart block and severe cardiogenic shock. He also has significant leukocytosis with a left shift, raising concern for a potential infectious component, possibly bilateral lower lobe pneumonia of unclear etiology, with a potential aspiration component due to respiratory failure and arrest. He was intubated and on mechanical ventilation. He was extubated on 07/21/2024. The patient has a significant history of esophageal dysphagia and was referred to speech therapy s/p extubation and suspected aspiration pneumonia. According to his spouse, due to his GI history, his prior level of function included a diet of minced moist foods, avoiding breads, and strictly adhering to GERD precautions. The evaluating [employer] ATTENDANT recommended minced moist solids and thin liquids, with direct supervision during intake. The family may assist with supervision. Other recommendations include no straws, medications as tolerated, GERD precautions, maintaining an upright position during and for at least 30 minutes after meals, taking small bites/sips, eating slowly, alternating bites/sips, monitoring SPO2 during meals, and refraining from talking while eating. A modified barium swallow study is recommended. Current Diet Ordered: Minced and Moist textures / Thin liquids Mental Status: WNL Penetration-Aspiration Scale Penetration-Aspiration Scale: OBJECTIVE ASSESSMENT OF SWALLOW FUNCTION (QUANTITATIVE ? PER TRIAL): PENETRATION / ASPIRATION SCALE (VASQUEZ): 1 = does not enter airway 2 = enters airway/above vocal folds/ejected 3 = enters airway/above vocal folds/not ejected 4 = enters airway/contacts vocal folds/ejected 5 = enters airway/contacts vocal folds/not ejected 6 = enters airway/below vocal folds/ejected 7 = enters airway/below vocal folds/not ejected despite effort 8 = enters airway/below vocal folds/no effort VIDEOFLOROSCOPIC SCALE SCORE (VASQUEZ): Grade I = aspiration of material that has penetrated into the laryngeal vestibule, intact cough reflex Grade II = aspiration < 10 % of the bolus, intact cough reflex Grade III = aspiration of < 10 % of the bolus, reduced cough reflex or aspiration of > 10 % of the bolus, intact cough reflex Grade IV = aspiration of > 10 % of the bolus, reduced cough reflex Penetration-Aspiration Scale Score Thin Liquid via teaspoon: Result: 1= does not enter airway Thin Liquid via small single sip: cup: Result: 1= does not enter airway Thin Liquid via sequential sips: cup: Result: 2= enter airway/above vocal folds/ejected Thin Liquid via single sip: straw: Result: 8= enters airway/below vocal folds/no effort [place] Thick Liquid via small single sip: cup: Result: 1= does not enter airway Pudding: Result: 1= does not enter airway Cookie: Result: 1= does not enter airway Thin Liquid via small single sip: cup Trial 2: Result: 5= enters airways/contacts vocal folds/not ejected Thin Liquid via small single sip: cup Trial 3: Result: 5= enters airways/contacts vocal folds/not ejected Oral Phase Labial Seal: Interlabial escape, no progression to anterior lip Tongue Control During Bolus Hold: Posterior escape of less than half of bolus Bolus Preparation/Mastication: Disorganized chewing/mashing with solid pieces of bolus unchewed Bolus Transport/Lingual Motion: Delayed initiation of tongue motion Oral Residue: Residue collection on oral structures Pharyngeal Phase Initiation of Pharyngeal Swallow: Bolus head in pyriforms Soft Palate Elevation: No bolus between soft palate and pharyngeal wall Laryngeal Elevation: Partial superior movement thyroid cart/partial apprx aryt- epig petiole Anterior Hyoid Excursion: Complete anterior movement Epiglottic Movement: Partial inversion Laryngeal Vestibule Closure at Height of Swallow: Incomplete; narrow column of air/contrast in laryngeal vestibule Pharyngeal Stripping Wave: Present - diminished Pharyngoesophageal Segment Opening: Parital distension and partial duration; parital obstruction of flow Tongue Base Retraction: Wide column of contrast between tongue base & post. pharyngeal wall Pharyngeal Residue: Collection of residue within or on pharyngeal structures Esophageal Phase Esophageal Clearance: Esophageal retention w/ retrograde flow below pharyngoesophageal seg. Diagnosis/Impression Diagnosis: Oropharyngeal dysphagia R13.14 Impression: The oral phase is marked by poor bolus control, with the bolus spilling into the pyriform sinuses prior to swallow initiation. There is slowed mastication, with piecemeal deglutition, and solid pieces of cookie remaining un-chewed in the vallecula. Oral residue is present, which spills into the vallecula after the swallow. The pharyngeal phase is characterized by delayed pharyngeal swallow onset, leading to suboptimal bolus positioning in the vallecula and pyriform sinuses be fore the swallow is initiated. Airway closure is reduced due to decreased laryngeal elevation and closure, causing laryngeal penetration to the vocal cords and aspiration, with a delayed cough following penetration. Thin liquids by cup caused penetration to the vocal cords that was not fully ejected. There is significant pharyngeal residue in the vallecula and pyriform sinuses due to a wide tongue base and diminished pharyngeal stripping wave. The patient independently performs additional dry swallows to clear the residue, which somewhat reduces it, but there is still a high risk of post-prandial aspiration, particularly of residue remaining in the pyriform sinuses. Post-prandial aspiration was observed during the trial, but it is unclear whether it was caused by liquid or solid, as significant residue remained after the cookie trial despite multiple swallows. Additionally, the patient demonstrates increased oropharyngeal weakness compared to a previous instrumental swallow study (Apr 2024), likely due to being intubated and extubated during this hospitalization. Recommendations Diet: Mechanical Soft Textures and Thin Liquids Comment: Close monitoring of respiratory status. If worsening, consider downgrading to thin liquids by teaspoon to minimize aspiration risk. Compensatory Strategies: Small Bites, Small Sips, No Straws, Slow Rate, Multiple Swallows, Alternate bites/solids and sips/liquids, Sitting upright and Remain sitting upright for 30 minutes after PO intake Recommend Repeat Modified Barium Swallow: TBD Need for Skilled Speech Therapy Services: Yes Comment: The patient would benefit from skilled speech therapy services to teach compensatory swallowing strategies and to train both the patient and family on an oropharyngeal exercise program. Education Completed: 1. Described result of evaluation., 2. Pt understands evaluation & agrees with goals and treatment plan. and 4. Family/caregivers understand evaluation & agree w/ goals & tx plan. Status Active ST Patient: Active Contact Information [facility] Speech Therapy:: Florinda Self M.A. [facility] ATTENDANT Speech-Language Pathologist [facility] [address] [place] [address] [phone]
--- NOTE | 2024-07-24 15:03 | CASEMGMT ---
DESTINEE CHAN reviewed HHC referrals that were sent through [facility]. [facility], [facility], and [facility] have all accepted patient. DESTINEE CHAN in to patient's room to discuss discharge planning, at bedside. states that she wants what is best for patient but does not want him to go to a custodial home. Patient and voiced interests in TCU, will check availability. DESTINEE CHAN update patient and regarding accepting HHC agencies, patient and prefer [facility] if they go home. Therapy entered room and discussed TCU vs HHC. Therapy to work with patient and provide recommendations to and patient. Patient and agreeable to plan and had no further questions or concerns. DESTINEE CHAN updated SW regarding possible TCU at discharge, will check availability. CM will continue to follow this patient and plan for a safe discharge.
[2024-07-24] MEDS: Atorvastatin Calcium 20 MG Tablet PO (20:45)
[2024-07-25] VITALS (11 sets, daily range): BP systolic 147–159; BP diastolic 56–65; PULSE 70; RESP 18; TEMP 36.4–36.6; O2SAT 86–97; BMI 20.9
[2024-07-25] MEDS: Loperamide 2 MG Capsule PO (01:23)
[2024-07-25 03:20] LABS: Absolute Neutrophil Count 8.9 X10^3/uL (2.0-7.7); Basophil# 0.04 X10^3/uL; Basophil% 0.4 % (0-1); Eosinophil# 0.12 X10^3/uL; Eosinophils% 1.1 % (0-5); Hematocrit 31.7 % (40-54); Lymphocyte % 3.8 % (19-41); Mean Corp Hgb Conc 31.5 g/dL (32-36); Mean Corpuscular Hgb 30.4 pg (27.0-32.0); Mean Corpuscular Volume 96.4 fL (80-94); Mean Platelet Vol. 10.3 fl (6.2-12.0); Monocyte# 0.95 X10^3/uL; NRBC Flagged by Analyzer 0 % (0-5); Neutrophil # 8.89 X10^3/uL (2.7-7.7); Neutrophil % 84.6 % (47-70); POSITIVE DIFFERENTIAL YES; Platelet Count 268 K/mm3 (150-450); RBC Distribution Width CV 15.4 % (11.6-14.6); RBC Distribution Width SD 52.7 fl (35.1-43.9); Red Blood Count 3.29 M/mm3 (4.6-6.2); White Blood Count 10.5 K/mm3 (4.4-11.0)
[2024-07-25 03:37] LABS: Anion Gap 5 (5-15); BUN 52 mg/dL (7-18); BUN/Creat Ratio 23.7 RATIO (10-20); Calcium,Total 8.5 mg/dL (8.5-10.1); Chloride 108 mmol/L (98-107); Creatinine, Serum 2.19 mg/dL (0.70-1.30); EST Glomerular Filtration Rate 30 mL/min (>60); Est Glom Filt Rate - Afr Amer 37 mL/min (>60); Estimated Creatinine Clearance 23.15 ml/min; Glucose 129 mg/dL (74-106); Sodium Level 144 mmol/L (136-145)
[2024-07-25] MEDS: Heparin Injection (Vial) 5,000 UNIT/ML VIAL 5000 UNIT SC ×2 (05:08→14:45)
[2024-07-25] MEDS: 0.9% Saline Lock 10 ML Syringe IV ×2 (05:08→11:00)
[2024-07-25] MEDS: Piperacil/Tazobactam 3.375 GM in 0.9% Normal Saline (50mL MB+) 50 ML IV (05:08)
[2024-07-25] MEDS: Potassium Chloride Oral Tablet 20 MEQ 40 MEQ PO (06:27)
[2024-07-25 08:24] LABS: Magnesium 2.1 mg/dL (1.6-2.6)
[2024-07-25] MEDS: Ferrous Sulfate 325 MG Tablet PO (09:17)
[2024-07-25] MEDS: Furosemide 20 MG Tablet PO ×2 (09:18→17:26)
[2024-07-25] MEDS: Metoprolol Tartrate 25 MG Tablet PO ×2 (09:20→21:15)
[2024-07-25] MEDS: amLODIPine 5 MG Tablet PO (09:21)
--- NOTE | 2024-07-25 10:03 | WOUNDNOTE ---
wound photo: left heel
--- NOTE | 2024-07-25 10:03 | WOUNDNOTE ---
wound photo: right heel
[2024-07-25] MEDS: Pantoprazole Sodium 40 MG in 0.9% Normal Saline (100mL MB+) 100 ML 330 MG IV (10:25)
--- NOTE | 2024-07-25 11:40 | RAD_ITS ---
EXAM: XR CHEST, 1 VIEW CLINICAL INDICATION: elevated O2 demand TECHNIQUE: Frontal view of the chest. COMPARISON: 07/19/2024. FINDINGS: LUNGS AND PLEURAL SPACES: Bilateral pleural effusions. Mild compressive atelectasis is of the lung bases. No pneumothorax. HEART: Cardiomegaly. Intact sternal wires from CABG procedure. MEDIASTINUM: Central airways and mediastinal contour are unremarkable. BONES/JOINTS: Unremarkable. No acute fracture. SOFT TISSUES: Unremarkable. TUBES, LINES AND DEVICES: Single-chamber pacing lead tip remains in the right ventricle. Right IJ approach central line catheter tip is in the right upper atrial chamber. RAD/Chest 1 View (Portable) IMPRESSION: 1. Bilateral pleural effusions mild compressive atelectasis of the lung bases. 2. Interval removal of ET tube and OG tube. Electronically Signed: Pako Nguyen MD at 15:32 EST ,
[2024-07-25] MEDS: Potassium Chloride Oral Tablet 20 MEQ PO (11:49)
--- NOTE | 2024-07-25 16:39 | PCM.PN.HOSP ---
Reason for Visit Reason for Visit: Diagnoses Sepsis, unspecified organism (07/16/24) Essential (primary) hypertension (07/16/24) Atherosclerotic heart disease of [place] coronary artery without angina pectoris (07/16/24) Atrioventricular block, complete (07/16/24) Cardiac arrest, cause unspecified (07/16/24) Paroxysmal atrial fibrillation (07/16/24) Acute on chronic combined systolic (congestive) and diastolic (congestive) heart failure (07/16/24) Heart disease, unspecified (07/16/24) Acute kidney failure, unspecified (07/16/24) Chronic kidney disease, stage 4 (severe) (07/16/24) Cardiogenic shock (07/16/24) Severe sepsis with septic shock (07/16/24) Unspecified foreign body in respiratory tract, part unspecified causing other injury, initial encounter (07/16/24) Subjective Subjective Patient reports overall he is feeling fair, little short of breath but does not necessarily feel worse with ambulation and does not feel like he's struggling, does have a cough but not necessarily productive cough Objective Data Objective Data Vital Signs: Vital Signs Temp Pulse Resp BP Pulse Ox O2 Del Method O2 Flow Rate 97.9 F 70 18 147/59 H 93 Venturi Mask 5 07/25/24 15:30 07/25/24 15:30 07/25/24 15:30 07/25/24 15:30 07/25/24 15:30 07/25/24 15:41 07/25/24 15:41 FiO2 35 07/22/24 02:50 Oxygen Flow Rate (L/min) 5 Oxygen Delivery Method Venturi Mask Weight: 66.4 kg Body Mass Index (BMI) 20.9 Intake & Output: Intake and Output for Last 24 Hours 07/23/24 07/24/24 07/25/24 23:59 23:59 23:59 Intake Total 850 / 850 607.08 / 607.08 760 / 760 Output Total 1800 / 1800 850 / 850 1000 / 1000 Balance -950 / -950 -242.92 / -242.92 -240 / -240 Lab / Micro Data 07/25/24 03:05 07/25/24 03:05 Labs: Laboratory Results - last 24 hr 07/25/24 03:05: WBC 10.5, RBC 3.29 L, Hgb 10.0 L, Hct 31.7 L, MCV 96.4 H, MCH 30.4, MCHC 31.5 L, RDW Std Deviation 52.7 H, RDW Coeff of [place] 15.4 H, Plt Count 268, MPV 10.3, Immature Gran % (Auto) 1.100 H, Neut % (Auto) 84.6 H, Lymph % (Auto) 3.8 L, [place] % (Auto) 9.0, Eos % (Auto) 1.1, Baso % (Auto) 0.4, Absolute Neuts (auto) 8.9 H, Absolute Lymphs (auto) 0.40 L, Nucleated RBC % 0, Sodium 144, Potassium 3.0 L, Chloride 108 H, Carbon Dioxide 31.0, Anion Gap 5, BUN 52 H, Creatinine 2.19 H, Estim Creat Clear Calc 23.15, Est GFR (MDRD) Af Amer 37 L, Est GFR (MDRD) Non-Af 30 L, BUN/Creatinine Ratio 23.7 H, Glucose 129 H, Calcium 8.5, Phosphorus 4.0, Magnesium 2.1 Micro: Microbiology 07/25/24 00:30 Stool Enteric Bacteriology - Final 07/25/24 00:30 Stool Clostridioides difficile (PCR) - Final 07/16/24 06:05 Blood Culture (Wb) - Line Draw Blood Culture - Final No growth in 5 days. 07/16/24 05:10 Blood Culture (Wb) - Femoral Artery Blood Culture - Final No growth in 5 days. 07/16/24 15:40 Sputum, Tracheal Aspirate Gram Stain - Final 07/16/24 15:40 Sputum, Tracheal Aspirate Respiratory Culture - Final Mixed normal respiratory seb. No Streptococcus pneumoniae, beta-hemolytic Streptococcus or Staphylococcus aureus isolated. 07/16/24 05:20 Urine Catheter - Reyes Urine Culture - Final Culture exhibits no growth. 07/17/24 11:25 Mucosa - Nasopharyngeal Coronavirus COVID-19 PCR - Final 07/16/24 15:40 Mucosa - Nose Respiratory Panel (PCR) - Final 07/16/24 05:20 Urine Catheter - Reyes Legionella Antigen - Final 07/16/24 05:20 Urine Catheter - Reyes Streptococcus pneumoniae Antigen (M - Final Radiography Diagnostic Testing: Radiology Impression Chest X-Ray 07/25/24 11:40 IMPRESSION: 1. Bilateral pleural effusions mild compressive atelectasis of the lung bases. 2. Interval removal of ET tube and OG tube. Electronically Signed: Pako Nguyen MD at 15:32 EST , Physical Exam Narrative General: Alert,no apparent distress HEENT: Atraumatic, normocephalic Eyes: Anicteric, normal conjunctiva, extraocular movements grossly intact Neck: Supple Respiratory: Somewhat diminished at the bases, slight increased respiratory effort Cardiovascular: Regular rate GI: Soft, nontender, nondistended Extremities: 1+ BLE edema, currently wrapped Musculoskeletal: Moving all extremities Neuro: No overt focal neurological deficits Skin: No rashes appreciated Psych: Cooperative Assessment & Plan Assessment/Plan (1) Hypoxia: PLAN: Plan # Acute on chronic hypoxic respiratory failure -Usually on 2 L home O2 with ambulation, presently vacillates between 3-7 L but is quite variable with unclear etiology -Patient had been aggressively diuresed with IV Lasix twice daily for multiple days without change in respiratory status -Additionally completed full course of antibiotics for pneumonia which were stopped today -May impart be the patient is slow to respond given age but also query if there could be some component of aspiration given patient's abnormal swallow study -Advise strict adherence to swallowing precautions -Low suspicion for PE and unable to safely perform CTA given his CKD but patient to be resumed on his home Eliquis today either way -Once patient able to ambulate with 6 L or less of O2 would likely be able to discharge home with outpatient pulmonology follow-up -Patient was intubated initially due to his cardiac arrest and was subsequently extubated # Status postcardiac arrest with complete heart block -With subsequent pacemaker placement -Will follow-up with cardiology in pacer clinic on outpatient basis # CKD stage IIIb-IV -Patient with widely variable creatinine, has continued to improve with creatinine today of 2.19 -Avoid nephrotoxic agents -Daily BMPs # History of coronary artery disease status post CABG -CABG x 5 -Resuming Eliquis -Patient on atorvastatin -If he tolerates Eliquis will resume aspirin # History of TIA/CVA/L CEAx2 -Resuming Eliquis -Resume aspirin if patient tolerates -Continue statin #Hypertension -Continue amlodipine and metoprolol, BP slightly elevated, if remains so we will uptitrate amlodipine # History of paroxysmal atrial fibrillation -On metoprolol -Resuming Eliquneetu #Hypokalemia -Replace -Repeat in the AM #GERD -Continue PPI #DVT ppx: Resumed Jessicaquis Sonia Rangel MD Charges/Coding Visit Charges Inpatient E&M: 84800 Subs Hosp L2
[2024-07-25] MEDS: Atorvastatin Calcium 20 MG Tablet PO (21:15)
[2024-07-25] MEDS: APIXABAN 2.5 MG TABLET (WCH) PO (21:15)
[2024-07-26] VITALS (14 sets, daily range): BP systolic 133–175; BP diastolic 50–85; PULSE 70–75; RESP 14–22; TEMP 36.3–37; O2SAT 85–96; BMI 21.1
[2024-07-26] MEDS: 0.9% Saline Lock 10 ML Syringe IV ×2 (04:45→09:02)
[2024-07-26] MEDS: hydrALAZINE 20 MG/ML Vial 10 MG IV (04:45)
[2024-07-26] MEDS: Ipratropium/Albuterol Sulfate 3 ML AMPUL.NEB INHALATION (05:50)
[2024-07-26 06:20] LABS: Hematocrit 32.9 % (40-54); Hemoglobin 10.4 g/dL (13.0-16.5); Mean Corp Hgb Conc 31.6 g/dL (32-36); Mean Corpuscular Hgb 30.3 pg (27.0-32.0); Mean Corpuscular Volume 95.9 fL (80-94); Mean Platelet Vol. 10.6 fl (6.2-12.0); Platelet Count 305 K/mm3 (150-450); RBC Distribution Width CV 15.7 % (11.6-14.6); RBC Distribution Width SD 52.5 fl (35.1-43.9); Red Blood Count 3.43 M/mm3 (4.6-6.2); White Blood Count 10.2 K/mm3 (4.4-11.0)
[2024-07-26 06:37] LABS: Anion Gap 5 (5-15); BUN 43 mg/dL (7-18); BUN/Creat Ratio 22.5 RATIO (10-20); Calcium,Total 9.3 mg/dL (8.5-10.1); Chloride 105 mmol/L (98-107); Creatinine, Serum 1.91 mg/dL (0.70-1.30); EST Glomerular Filtration Rate 36 mL/min (>60); Est Glom Filt Rate - Afr Amer 43 mL/min (>60); Estimated Creatinine Clearance 25.22 ml/min; Glucose 130 mg/dL (74-106); Potassium 3.3 mmol/L (3.5-5.1); Sodium Level 140 mmol/L (136-145)
[2024-07-26] MEDS: Pantoprazole Sodium 40 MG Tablet PO (09:02)
[2024-07-26] MEDS: amLODIPine 10 MG Tablet PO (09:02)
[2024-07-26] MEDS: Potassium Chloride Oral Tablet 20 MEQ 40 MEQ PO (09:02)
[2024-07-26] MEDS: APIXABAN 2.5 MG TABLET (WCH) PO (09:03)
[2024-07-26] MEDS: Ferrous Sulfate 325 MG Tablet PO (09:03)
[2024-07-26] MEDS: Furosemide 20 MG Tablet PO (09:03)
[2024-07-26] MEDS: Metoprolol Tartrate 25 MG Tablet PO (09:03)
--- NOTE | 2024-07-26 13:56 | PCM.DC ---
Discharge Instructions Diet Discharge Diet: - (-DASH diet, 3000 mg sodium restriction, 2 L fluid restriction) DC O2, CPAP, BIPAP needs RN Home O2 Qualification: Home O2 Qualification: Is the patient on home oxygen No 07/26/24 12:00 Home O2 Qualification: AT REST 1- Pulse Ox at rest 85 07/26/24 12:00 2- Pulse Ox at rest 85 07/26/24 12:00 2- Oxygen Flow Rate at rest 3 07/26/24 12:00 3- Pulse Ox at rest 90 07/26/24 12:00 3- Oxygen Flow Rate at rest 4 07/26/24 12:00 Home O2 Qualification: WITH AMBULATION 1- Pulse Ox with ambulation 87 07/26/24 12:00 1- Oxygen Flow Rate with 4 07/26/24 12:00 ambulation 2- Pulse Ox with ambulation 88 07/26/24 12:00 2- Oxygen Flow Rate with 5 07/26/24 12:00 ambulation 3- Pulse Ox with ambulation 89 07/26/24 12:00 3- Oxygen Flow Rate with 6 07/26/24 12:00 ambulation Home O2 Discharge instructions: Yes Type of respiratory needs?: Oxygen (4) Oxygen frequency: Continuous Continuous oxygen liters per minute: 4 and With Ambulation Oxygen liters per minute during Ambulation: 6 Dressing / Incision Discharge Activity: - (Increase activity as tolerated) Follow Up Care Test Results: Test results from this visit will be discussed in further detail at your follow-up appointment, if applicable. Discharge Plan Admission Admit Date/Time: 07/16/24 03:16 Primary Reason for Your Visit: Complete heart block Attending Provider: Sonia Rangel Primary Care Provider: Gladis Castro Consulting Providers: Keith Bagley; Kalpesh Suggs; Allison Collazo; Justo Varela; Tanvir Nina Instructions Patient Instructions: Dysphagia Diet- Managing Drinks, Dysphagia Diet- Managing Foods Additional Instructions / Restrictions: DISCHARGE INSTRUCTIONS PLEASE READ *Please take this with you to your next doctors appointment* -Amlodipine has been increased to 10 mg to help with your blood pressure -Potassium 10 mill equivalents daily has been added to her medication regimen due to persistently low potassium -Would recommend lab work (BMP) to check your potassium and kidney function in 2 to 3 days through your primary care physician's office. Please call their office upon discharge to obtain order for lab work. -Your amiodarone has been discontinued but you will continue all other home medications -You will need to follow with the cardiology pacer clinic, and pacemaker informational booklet and card should be provided for you on discharge -It is advised to adhere to aspiration precautions/recommendations per speech therapy: Diet: -DASH diet, 3000 mg sodium restriction, 2 L fluid restriction with minced and moist food and thin liquids Compensatory Strategies: -Small Bites -Small Sips -No Straws -Slow Rate -Multiple Swallows -Alternate bites/solids and sips/liquids -Sitting Upright with hip flexion at 90degrees -Remain sitting upright for 30 minutes after PO intake -Please call your GI office to reschedule your appointment to discuss your esophageal stent upon discharge -Continue your torsemide -Weigh yourself every day. A sudden weight gain can mean you are retaining fluid. Weigh yourself at the same time of day and in the same kind of clothes. Ideally, weigh yourself first thing in the morning after you empty your bladder, but before you eat breakfast. -Please call your physician if your weight goes up by more than 2 pounds in 1 day or 5 pounds in 1 week. This can be a sign that you are retaining more fluid than you should be. Clues to weight gain include checking your ankles for swelling, or noticing you are short of breath when you lie down -Please limit your sodium intake to less than 3 g/day. Here are tips: Limit canned, dried, packaged, and fast foods. Don't add salt to your food at the table. Season foods with herbs instead of salt when you cook. When you eat out, ask that the chef passenger vessel not add any salt to your dish. Don't eat fried or greasy foods. Be careful of bottled beverages. They can contain a lot of salt -Call 911 right away if you have: -Severe shortness of breath, such that you can't catch your breath even while resting -Severe chest pain that does not resolve with rest or nitroglycerin -[place], foamy mucus with cough and shortness of breath -An ongoing rapid or irregular heartbeat -Passing out or fainting -Stroke symptoms such as sudden numbness or weakness on one side of your face, arm, or leg or sudden confusion, trouble speaking or vision changes -Please follow-up with pulmonology upon discharge. Please call their office to schedule hospital follow-up appointment upon discharge. (Please call the office of Dr. Melvin Kirkland to schedule a hospital follow-up with the first available provider in clinic, this will likely be his nurse practitioner.) -Please call your primary care provider's office upon discharge to schedule a hospital follow up within 1 week. -For any concerning signs or symptoms please call 911 or proceed to the nearest emergency department Discharge Orders/Prescriptions Prescriptions: New amlodipine 10 mg Tablet 10 mg PO DAILY 30 Days Qty: 30 0RF potassium chloride 10 mEq Tablet,Er Particles/Crystals 10 meq PO DAILYCM 30 Days Qty: 30 0RF Continued cholecalciferol (vitamin D3) 25 mcg (1,000 unit) capsule 1,000 unit PO QDAY aspirin [Adult Low Dose Aspirin] 81 mg tablet,delayed release (DR/EC) 81 mg PO QDAY atorvastatin 20 mg tablet 20 mg PO QPM metoprolol tartrate 25 mg tablet 25 mg PO BID Qty: 180 3RF Eliquis 5 mg tablet 2.5 mg PO BID ferrous sulfate [Feosol] 325 mg (65 mg iron) tablet 325 mg PO DAILY torsemide 10 mg tablet 10 mg PO .COMPLEX Qty: 60 11RF Rx Instructions: 10 mg orally twice a day, 4 hours apart (stop Furosemide); omeprazole 20 mg capsule,delayed release(DR/EC) 20 mg PO BID Qty: 180 1RF Discontinued amlodipine 5 mg tablet 5 mg PO DAILY Qty: 90 3RF amiodarone 200 mg tablet 200 mg PO DAILY Qty: 90 3RF Referrals / Follow Up: Keith Bagley MD [Med Staff - Active Staff] - (He will need to follow-up with the pacemaker clinic on discharge, if there are any questions please call the office of Dr. Bagley to inquire) Melvin Kirkland DO [Med Staff - Active Staff] - (Please call the office of Dr. Melvin Kirkland to schedule a hospital follow-up with the first available provider in clinic, this will likely be his nurse practitioner.) Gladis Castro DO [Primary Care Provider] - Within 1 Week Disposition Disposition (needs filled in before D/C Order can be placed): Home Health Service
--- NOTE | 2024-07-26 14:12 | PCM.DC.SUM ---
Providers Date of Admission: 07/16/24 Date of Discharge: 07/26/24 Primary Care Physician: Dr. Gladis Castro, Consultations 07/16/24 03:28 Consult: Construction Technician / Pulmonary Medicine Routine Consulting Provider: Intensivists/Pulmonary Med Reason for Consult: CHB with CODE BLUE. EMERGENT Consult: No MD Notified: Yes Date Notified: 07/16/24 Time Notified: 04:00 Method of Notification: Verbal 07/16/24 05:04 Consult: General Surgery Routine Consulting Provider: Justo Varela Reason for Consult: line placement EMERGENT Consult: No MD Notified: Yes Date Notified: 07/16/24 Time Notified: 05:05 Method of Notification: Verbal 07/21/24 17:12 Consult: Onc/Wound/pattern marking supervisor Routine Comment: Reason for Consult:: bilateral heals Reason For Visit: CHB WITH CODE BLUE Diagnosis Discharge Diagnosis (1) Hypoxia: Status: Acute Code(s): R09.02 - Hypoxemia Plan #Cardiac arrest 2/ CHB w/ pacemaker placement #Hx HFrEF #CAD s/p CABG x5 2009 #pafib on eliquis # Esophageal stricture with esophageal stent # History of TIA/CVA # History of left carotid stenosis status post CEA x 2 # History of CKD stage IV # History of GERD with Bales's esophagus and chronic dysphagia # History of hypertension # Hypokalemia Medications at Discharge Home Medications aspirin 81 mg tablet,delayed release (Adult Low Dose Aspirin) 81 mg PO QDAY SUPPLEMENT 11/04/17 cholecalciferol (vitamin D3) 25 mcg (1,000 unit) capsule 1,000 unit PO QDAY SUPPLEMENT 03/11/23 atorvastatin 20 mg tablet 20 mg PO QPM H;D 03/27/24 metoprolol tartrate 25 mg tablet 25 mg PO BID #180 tabs 06/12/24 apixaban 5 mg tablet (Eliquis) 2.5 mg PO BID blood thinner 06/28/24 torsemide 10 mg tablet 10 mg PO .COMPLEX #60 tabs 07/03/24 omeprazole 20 mg capsule,delayed release 20 mg PO BID GERD #180 caps 07/04/24 ferrous sulfate 325 mg (65 mg iron) tablet (Feosol) 325 mg PO DAILY anemia 07/16/24 amlodipine 10 mg tablet 10 mg PO DAILY 30 days #30 tabs 01/08/25 potassium chloride 10 mEq tablet,extended release(part/cryst) 10 meq PO DAILYCM 30 days #30 tabs 07/26/24 Hospital Course Procedures - (Intubation, extubation, RIJ) Summary of Care Provided Minutes Spent on Discharge: 48 Hospital Course: #Cardiac arrest 2/ CHB w/ pacemaker placement #Hx HFrEF #CAD s/p CABG x5 2009 #pafib on eliquis # Esophageal stricture with esophageal stent # History of TIA/CVA # History of left carotid stenosis status post CEA x 2 # History of CKD stage IV # History of GERD with Bales's esophagus and chronic dysphagia # History of hypertension # Hypokalemia 89-year-old male history as above who presented [facility] ED 07/16/2024 with complete heart block after becoming short of breath at home and unresponsive. EMS found complete heart block with a rate around 20 bpm and in the ED patient was placed on transcutaneous pacer pads while awaiting cardiology to emergently place transvenous pacer however patient subsequently had transcutaneous pacer capture failure and had CODE BLUE with 3 minutes of ACLS including intubation with return of heart rate. Patient taken emergently for transvenous pacemaker placement tolerated this well. Patient admitted to ICU. Additionally developed signs of shock and required Levophed drip and was also started empirically on IV vancomycin and Zosyn. Patient found to have pneumonia and antibiotics ultimately narrowed to Zosyn. He improved and was able to be extubated and transferred out of the ICU but continued to have high O2 requirements. Patient completed course of antibiotics for pneumonia and was aggressively diuresed but continued to need 3 to 6 L of O2. Discussed with pulmonology and it was felt that as long as patient could ambulate needing 6 L or less he could follow-up in the pulmonology clinic as there appeared to be no other acute problem that can be addressed for rapid improvement on inpatient basis. Patient was noted to not do well on swallow eval so there is possibility that aspiration is contributing to the increased requirement of O2 and patient placed on aspiration precautions. Patient's kidney function continued to improve during his hospitalization and he had potassium replaced multiple times ultimately resulting in scheduled potassium. On day of discharge patient doing very well with therapy, does still require O2 at rest and with ambulation but this is stable and patient agreeable to outpatient follow-up. Discussed patient's hospitalization, current clinical status, and plan extensively with patient and at bedside. Patient is able to ambulate and maintain oxygen saturation in high 80s on 6 L of O2 and can be discharged on this based on previous conversation with pulmonology and is on 4 L at rest. Do not think another 24 to 48 hours will drastically change patient's oxygen requirement and suspect that this will take time and patient will need to follow-up with pulmonology, patient and verbalized understanding. Earlier this a.m. patient had high blood pressure and was given IV hydralazine, he reported to me that right after that he felt more short of breath (subjectively, patient's oxygen saturation was 94% on 35% FiO2 which would equate to around 4 L/min (and prior to BiPAP patient was on 5 L/min so this was comparatively less)) and patient reports his shortness of breath resolved fairly quickly and has felt fine since and felt fine before that. Suspect that hydralazine decreased blood pressure which decreased stroke-volume and given his heart rate paced at 70 without ability to increase with compensatory tachycardia suspect he had decreased cardiac output. Given there was a direct [id number] and fairly quick resolution do not think that this would negate safe discharge home. Discussed this with patient and as well and understanding was verbalized. Also verbally went over all of patient's discharge instructions and opportunity given to ask questions which were answered. Patient with no new or acute complaints on day of discharge. Discussed importance of aspiration precautions, daily weights, compliance with medication and hospital follow-up appointments. Discharge instructions as follows: DISCHARGE INSTRUCTIONS PLEASE READ *Please take this with you to your next doctors appointment* -Amlodipine has been increased to 10 mg to help with your blood pressure -Potassium 10 mill equivalents daily has been added to her medication regimen due to persistently low potassium -Would recommend lab work (BMP) to check your potassium and kidney function in 2 to 3 days through your primary care physician's office. Please call their office upon discharge to obtain order for lab work. -Your amiodarone has been discontinued but you will continue all other home medications -You will need to follow with the cardiology pacer clinic -It is advised to adhere to aspiration precautions/recommendations per speech therapy -Please call your GI office to reschedule your appointment to discuss your esophageal stent upon discharge -Continue your torsemide -Weigh yourself every day. A sudden weight gain can mean you are retaining fluid. Weigh yourself at the same time of day and in the same kind of clothes. Ideally, weigh yourself first thing in the morning after you empty your bladder, but before you eat breakfast. -Please call your physician if your weight goes up by more than 2 pounds in 1 day or 5 pounds in 1 week. This can be a sign that you are retaining more fluid than you should be. Clues to weight gain include checking your ankles for swelling, or noticing you are short of breath when you lie down -Please limit your sodium intake to less than 3 g/day. Here are tips: Limit canned, dried, packaged, and fast foods. Don't add salt to your food at the table. Season foods with herbs instead of salt when you cook. When you eat out, ask that the site operations manager not add any salt to your dish. Don't eat fried or greasy foods. Be careful of bottled beverages. They can contain a lot of salt -Call 911 right away if you have: -Severe shortness of breath, such that you can't catch your breath even while resting -Severe chest pain that does not resolve with rest or nitroglycerin -[place], foamy mucus with cough and shortness of breath -An ongoing rapid or irregular heartbeat -Passing out or fainting -Stroke symptoms such as sudden numbness or weakness on one side of your face, arm, or leg or sudden confusion, trouble speaking or vision changes -Please follow-up with pulmonology upon discharge. Please call their office to schedule hospital follow-up appointment upon discharge. (Please call the office of Dr. Melvin Kirkland to schedule a hospital follow-up with the first available provider in clinic, this will likely be his nurse practitioner.) -Please call your primary care provider's office upon discharge to schedule a hospital follow up within 1 week. -For any concerning signs or symptoms please call 911 or proceed to the nearest emergency department Physical Exam Narrative General: Alert,no apparent distress HEENT: Atraumatic, normocephalic Eyes: Anicteric, normal conjunctiva, extraocular movements grossly intact Neck: Supple Respiratory: Respiratory effort similar to previous with no worsening, still somewhat diminished bilaterally without overt rhonchi or wheezes Cardiovascular: Regular rate GI: Soft, nontender, nondistended Extremities: 1+ BLE edema, currently wrapped Musculoskeletal: Moving all extremities Neuro: No overt focal neurological deficits Skin: No rashes appreciated Psych: Cooperative Weight / BMI Weight Weight: 66.7 kg Body Mass Index (BMI) 21.1 ABG / Lab / Microbiology Data 07/26/24 05:30 07/26/24 05:30 Laboratory: Laboratory Results - last 24 hr 07/26/24 05:30: WBC 10.2, RBC 3.43 L, Hgb 10.4 L, Hct 32.9 L, MCV 95.9 H, MCH 30.3, MCHC 31.6 L, RDW Std Deviation 52.5 H, RDW Coeff of [place] 15.7 H, Plt Count 305, MPV 10.6, Sodium 140, Potassium 3.3 L, Chloride 105, Carbon Dioxide 31.0, Anion Gap 5, BUN 43 H, Creatinine 1.91 H, Estim Creat Clear Calc 25.22, Est GFR (MDRD) Af Amer 43 L, Est GFR (MDRD) Non-Af 36 L, BUN/Creatinine Ratio 22.5 H, Glucose 130 H, Calcium 9.3 Microbiology: Microbiology 07/25/24 00:30 Stool Enteric Bacteriology - Final 07/25/24 00:30 Stool Clostridioides difficile (PCR) - Final 07/16/24 06:05 Blood Culture (Wb) - Line Draw Blood Culture - Final No growth in 5 days. 07/16/24 05:10 Blood Culture (Wb) - Femoral Artery Blood Culture - Final No growth in 5 days. 07/16/24 15:40 Sputum, Tracheal Aspirate Gram Stain - Final 07/16/24 15:40 Sputum, Tracheal Aspirate Respiratory Culture - Final Mixed normal respiratory seb. No Streptococcus pneumoniae, beta-hemolytic Streptococcus or Staphylococcus aureus isolated. 07/16/24 05:20 Urine Catheter - Reyes Urine Culture - Final Culture exhibits no growth. 07/17/24 11:25 Mucosa - Nasopharyngeal Coronavirus COVID-19 PCR - Final 07/16/24 15:40 Mucosa - Nose Respiratory Panel (PCR) - Final 07/16/24 05:20 Urine Catheter - Reyes Legionella Antigen - Final 07/16/24 05:20 Urine Catheter - Reyes Streptococcus pneumoniae Antigen (M - Final Radiography Diagnostic Testing: Radiology Impression Chest X-Ray 07/25/24 11:40 IMPRESSION: 1. Bilateral pleural effusions mild compressive atelectasis of the lung bases. 2. Interval removal of ET tube and OG tube. Electronically Signed: Pako Nguyen MD at 15:32 EST , D/C Instructions Discharge Diet: - (-DASH diet, 3000 mg sodium restriction, 2 L fluid restriction) DC O2, CPAP, BIPAP Needs RN Home O2 Qualification: Home O2 Qualification: Is the patient on home oxygen No 07/26/24 12:00 Home O2 Qualification: AT REST 1- Pulse Ox at rest 85 07/26/24 12:00 2- Pulse Ox at rest 85 07/26/24 12:00 2- Oxygen Flow Rate at rest 3 07/26/24 12:00 3- Pulse Ox at rest 90 07/26/24 12:00 3- Oxygen Flow Rate at rest 4 07/26/24 12:00 Home O2 Qualification: WITH AMBULATION 1- Pulse Ox with ambulation 87 07/26/24 12:00 1- Oxygen Flow Rate with 4 07/26/24 12:00 ambulation 2- Pulse Ox with ambulation 88 07/26/24 12:00 2- Oxygen Flow Rate with 5 07/26/24 12:00 ambulation 3- Pulse Ox with ambulation 89 07/26/24 12:00 3- Oxygen Flow Rate with 6 07/26/24 12:00 ambulation PSN CPAP & BiPAP: BiPAP & CPAP Settings per PSN Mode BiPAP 07/26/24 05:45 Bipap Delivery Device Face Mask 07/26/24 05:45 BiPAP Inspiratory Pressure 10 07/26/24 05:45 BiPAP Expiratory Pressure 5 07/26/24 05:45 BiPAP Rate 14 07/26/24 05:45 Fraction of Inspired Oxygen ( 35 07/26/24 05:45 FIO2) Home O2 Discharge instructions: Yes Type of respiratory needs?: Oxygen (4) Oxygen frequency: Continuous Continuous oxygen liters per minute: 4 and With Ambulation Oxygen liters per minute during Ambulation: 6 DC home with Oxygen: Yes Home O2 MD Review: I have reviewed the oxygen testing, and the patient qualifies for home oxygen equipment and portability. The patient is mobile in the home and the community. Meaningful Use Info Meaningful Use Meaningful Use Diagnoses (Choose all that apply): None applicable Ischemic Stroke Statin Dosing Therapy Reference: STATIN DOSE THERAPY REFERENCE: * Patients > 75 years receive moderate or high dose statin therapy. * Patients 75 years or YOUNGER should receive HIGH intensity statin dose unless contraindicated. You will be required to document reason for non-treatment if statin daily dose does not meet guidelines. HIGH DOSE STATIN THERAPY DAILY Atorvastatin > than or = to 40 mg Rosuvastatin > than or = to 20 mg Amlodipine + Atorvastatin > than or = to 2.5/40 mg Ezetimibe + Simvastatin 10/80 mg Simvastatin 80mg Discharge Plan Admission Admit Date/Time: 07/16/24 03:16 Primary Reason for Your Visit: Complete heart block Attending Provider: Sonia Rangel Primary Care Provider: Gladis Castro Consulting Providers: Keith Bagley; Kalpesh Suggs; Allison Collazo; Justo Varela; Tanvir Nina Instructions Patient Instructions: Dysphagia Diet- Managing Drinks, Dysphagia Diet- Managing Foods Additional Instructions / Restrictions: DISCHARGE INSTRUCTIONS PLEASE READ *Please take this with you to your next doctors appointment* -Amlodipine has been increased to 10 mg to help with your blood pressure -Potassium 10 mill equivalents daily has been added to her medication regimen due to persistently low potassium -Would recommend lab work (BMP) to check your potassium and kidney function in 2 to 3 days through your primary care physician's office. Please call their office upon discharge to obtain order for lab work. -Your amiodarone has been discontinued but you will continue all other home medications -You will need to follow with the cardiology pacer clinic, and pacemaker informational booklet and card should be provided for you on discharge -It is advised to adhere to aspiration precautions/recommendations per speech therapy: Diet: -DASH diet, 3000 mg sodium restriction, 2 L fluid restriction with minced and moist food and thin liquids Compensatory Strategies: -Small Bites -Small Sips -No Straws -Slow Rate -Multiple Swallows -Alternate bites/solids and sips/liquids -Sitting Upright with hip flexion at 90degrees -Remain sitting upright for 30 minutes after PO intake -Please call your GI office to reschedule your appointment to discuss your esophageal stent upon discharge -Continue your torsemide -Weigh yourself every day. A sudden weight gain can mean you are retaining fluid. Weigh yourself at the same time of day and in the same kind of clothes. Ideally, weigh yourself first thing in the morning after you empty your bladder, but before you eat breakfast. -Please call your physician if your weight goes up by more than 2 pounds in 1 day or 5 pounds in 1 week. This can be a sign that you are retaining more fluid than you should be. Clues to weight gain include checking your ankles for swelling, or noticing you are short of breath when you lie down -Please limit your sodium intake to less than 3 g/day. Here are tips: Limit canned, dried, packaged, and fast foods. Don't add salt to your food at the table. Season foods with herbs instead of salt when you cook. When you eat out, ask that the site operations manager not add any salt to your dish. Don't eat fried or greasy foods. Be careful of bottled beverages. They can contain a lot of salt -Call 911 right away if you have: -Severe shortness of breath, such that you can't catch your breath even while resting -Severe chest pain that does not resolve with rest or nitroglycerin -[place], foamy mucus with cough and shortness of breath -An ongoing rapid or irregular heartbeat -Passing out or fainting -Stroke symptoms such as sudden numbness or weakness on one side of your face, arm, or leg or sudden confusion, trouble speaking or vision changes -Please follow-up with pulmonology upon discharge. Please call their office to schedule hospital follow-up appointment upon discharge. (Please call the office of Dr. Melvin Kirkland to schedule a hospital follow-up with the first available provider in clinic, this will likely be his nurse practitioner.) -Please call your primary care provider's office upon discharge to schedule a hospital follow up within 1 week. -For any concerning signs or symptoms please call 911 or proceed to the nearest emergency department Discharge Orders/Prescriptions Prescriptions: New amlodipine 10 mg Tablet 10 mg PO DAILY 30 Days Qty: 30 0RF potassium chloride 10 mEq Tablet,Er Particles/Crystals 10 meq PO DAILYCM 30 Days Qty: 30 0RF Continued cholecalciferol (vitamin D3) 25 mcg (1,000 unit) capsule 1,000 unit PO QDAY aspirin [Adult Low Dose Aspirin] 81 mg tablet,delayed release (DR/EC) 81 mg PO QDAY atorvastatin 20 mg tablet 20 mg PO QPM metoprolol tartrate 25 mg tablet 25 mg PO BID Qty: 180 3RF Eliquis 5 mg tablet 2.5 mg PO BID ferrous sulfate [Feosol] 325 mg (65 mg iron) tablet 325 mg PO DAILY torsemide 10 mg tablet 10 mg PO .COMPLEX Qty: 60 11RF Rx Instructions: 10 mg orally twice a day, 4 hours apart (stop Furosemide); omeprazole 20 mg capsule,delayed release(DR/EC) 20 mg PO BID Qty: 180 1RF Discontinued amlodipine 5 mg tablet 5 mg PO DAILY Qty: 90 3RF amiodarone 200 mg tablet 200 mg PO DAILY Qty: 90 3RF Referrals / Follow Up: Keith Bagley MD [Med Staff - Active Staff] - 08/29/24 1:30 pm (He will need to follow-up with the pacemaker clinic on discharge, if there are any questions please call the office of Dr. Bagley to inquire) Melvin Kirkland DO [Med Staff - Active Staff] - 08/22/24 10:45 am (Please call the office of Dr. Melvin Kirkland to schedule a hospital follow-up with the first available provider in clinic, this will likely be his nurse practitioner.) Gladis Castro DO [Primary Care Provider] - 08/03/24 10:00 am Disposition Disposition (needs filled in before D/C Order can be placed): Home Health Service Charges/Coding Visit Charges Inpatient E&M: 62240 Disch Hosp >30min
--- NOTE | 2024-07-26 15:29 | CASEMGMT ---
Discharge Planning Discharge orders sent to [facility]. Asked for soc date. Awaiting response. Nora Colindres DC Planning Asst.
--- NOTE | 2024-07-26 16:04 | CASEMGMT ---
Patient has order for discharge. RN CM updated by RN that patient will need increase in home oxygen, hospitalist updated, script received. RN CM received call from saravanan Jolly inquiring about increase in oxygen and process for exchanging equipment for larger concentrator. RN CM also updated Rik regarding HHC setup. Rik inquired about Cpap at discharge. RN CM updated Rik that patient does not require cpap at discharge and to follow-up with delivery consultant if this will be needed in the future. Rik voiced understanding and had no further questions or concerns. RN CM to patient room to discuss discharge with patient and . RN CM updated about increase in home oxygen and RN CM making arrangements to exchange equipment. states she is running home to get the patient clothes and asked if she could pick up and delivery driver concentrator from [facility]. RN CM called [place] at [facility] and was agreeable to stopping at [place] to pick up and delivery driver 10L concentrator. RN CM updated . RN CM also updated to acceptance of HHC with [facility] and planned start of care for Wednesday. DESTINEE CM also arranged for [facility] liaison to bring portable tank to patient room for at discharge. Patient and had no further questions or concerns. RN CM updated discharge plan.
== END 2024-07-26 17:00 | disposition home health service (06) | DRG 242 ==
LOC: ED 02:16 → CLSP 02:18 → ICU 03:21 → PCU 07-22 14:37
PROVIDERS: Family Medicine; Hospitalist; Internal Medicine Cardiovascular Disease; Internal Medicine Pulmonary Disease; Admitting Provider Internal Medicine; Emergency Provider Emergency Medicine; PCP Internal Medicine; Visit Provider Internal Medicine
DX: I44.2 Atrioventricular block, complete (principal); J96.21 Acute and chronic respiratory failure with hypoxia; I46.2 Cardiac arrest due to underlying cardiac condition; K72.00 Acute and subacute hepatic failure without coma; J69.0 Pneumonitis due to inhalation of food and vomit; N17.0 Acute kidney failure with tubular necrosis; R57.0 Cardiogenic shock; I50.43 Acute on chronic combined systolic (congestive) and diastolic (congestive) heart failure; N18.4 Chronic kidney disease, stage 4 (severe); I13.0 Hypertensive heart and chronic kidney disease with heart failure and stage 1 through stage 4 chronic kidney disease, or unspecified chronic kidney disease; E87.0 Hyperosmolality and hypernatremia; K22.2 Esophageal obstruction; L89.616 Pressure-induced deep tissue damage of right heel; I73.9 Peripheral vascular disease, unspecified; D53.9 Nutritional anemia, unspecified; I25.10 Atherosclerotic heart disease of native coronary artery without angina pectoris; E78.00 Pure hypercholesterolemia, unspecified; I48.0 Paroxysmal atrial fibrillation; K21.9 Gastro-esophageal reflux disease without esophagitis; E87.6 Hypokalemia; Z87.891 Personal history of nicotine dependence; Z79.01 Long term (current) use of anticoagulants; Z86.73 Personal history of transient ischemic attack (TIA), and cerebral infarction without residual deficits; Z79.899 Other long term (current) drug therapy; Z99.81 Dependence on supplemental oxygen; Z79.82 Long term (current) use of aspirin; Z95.1 Presence of aortocoronary bypass graft; R94.6 Abnormal results of thyroid function studies; R23.4 Changes in skin texture
CPT/HCPCS: 31500; 31720; 33207; 33210; 36415; 36600; 51702; 71045; 74230; 80048; 80053; 80061; 80202; 81001; 82803; 82962; 83605; 83735; 84100; 84145; 84439; 84443; 84484; 85025; 85027; 85610; 85730; 86850; 86900; 86901; 86920; 87040; 87070; 87086; 87205; 87449; 87493; 87506; 87633; 87635; 92526; 92611; 92950; 92953; 93005; 93306; 94002; 94003; 94640; 94660; 94668; 94762; 97110; 97116; 97162; 97166; 97530; 97535; 97802; 97803; 99252; 99285; P9016; Q9957; A4216; C1751; C1769; C1894; C8929; G0463; J1938

== ENCOUNTER → 2024-08-03 | Outpatient (CLI) | payer MEDICARE, SELFPAY ==
[2024-08-03 12:27] LABS: Potassium 4.8 mmol/L (3.5-5.1)
== END | disposition home or self-care (01) ==
LOC: LABSPEC 12:07
PROVIDERS: PCP Internal Medicine; Referring Provider Internal Medicine; Visit Provider Internal Medicine
DX: E87.5 Hyperkalemia (principal)

== ENCOUNTER 2024-08-08 14:18 | Inpatient (IN) | payer MEDICARE, SELFPAY ==
[2024-08-08] VITALS (7 sets, daily range): BP systolic 123–141; BP diastolic 49–57; PULSE 70–71; RESP 17–26; TEMP 36–36.6; O2SAT 91–95; BMI 25.3; BMI 23.9
--- NOTE | 2024-08-08 15:24 | EKG12_ITS ---
Test Reason : SOB Blood Pressure : */* mmHG Vent. Rate : 70 BPM Atrial Rate : 72 BPM P-R Int : * ms QRS Dur : 174 ms QT Int : 522 ms P-R-T Axes : * -80 70 degrees QTcB Int : 563 ms Ventricular-paced rhythm Abnormal ECG Confirmed by ANN ALFORD, AZAEL ([id number]), food editor ELIUD MARINELLI ([id number]) on 08/15/2024 6:50:29 AM Referred By: Confirmed By: AZAEL JUAREZ MD
--- NOTE | 2024-08-08 15:25 | RAD_ITS ---
STUDY: X-RAY CHEST REASON FOR EXAM: Male, 89 years old. Shortness of breath TECHNIQUE: Single AP portable view of the chest. COMPARISON: Comparison is made with prior study dated July 25, 2024. FINDINGS: EKG electrodes are seen. Increasing right pleural effusion with right basilar atelectasis and/or infiltration. Persistent small left pleural effusion and left basilar atelectasis and infiltration superimposed on mild degree of CHF. Sternal cerclage wires and vascular clips are present from a prior sternotomy and coronary artery bypass graft procedure (CABG). A left-sided unipolar pacemaker is seen. Normal mediastinum and sammy. Normal visualized pulmonary arteries. Normal visualized aortic arch and descending thoracic aorta. There are diffuse degenerative changes of the visualized thoracic spine. Normal visualized ribs, clavicles, and shoulders. There is no demonstrated abnormality of the visualized soft tissue structures of the upper abdomen. RAD/Chest 1 View (Portable) IMPRESSION: Increasing right pleural effusion with right basilar atelectasis and/or infiltrate. Persistent pleural parenchymal changes at the left lung base. Mild degree of vascular congestion and CHF. Electronically Signed: Anthony Lemus MD at 15:37 EST ,
--- NOTE | 2024-08-08 15:25 | EDS_ITS ---
HPI History of Present Illness Chief Complaint: Shortness of Breath Narrative Narrative: 89-year-old male past medical history of COPD, on oxygen at all times, 4 L according to his when he is at rest, then 6 L when he exerts himself presents with low pulse ox at home. His home health care nurse was present, and there are times when he is sleeping that his pulse ox will go down into the 70s, but when he wakes up, it rises back to baseline. According to his family, the home health nurse was unable to see a significant rise in his pulse oxygenation. He denies any recent fevers or chills, no cough. He feels mildly short of breath. He does not use aerosols at home. He has history of recent pacemaker placement 2 weeks ago. has noticed that his abdomen seems a little more bloated, and that his feet are swollen as well. He has history of CHF. He presents because of the low pulse ox. [facility] Medical History Septic shock Left ventricular systolic dysfunction Presence of cardiac pacemaker Paroxysmal atrial fibrillation HTN (hypertension), benign Coronary artery disease Chronic kidney disease 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, <= 40%) Esophageal obstruction Hiatal hernia Kidney disease TIA (transient ischemic attack) Hypertension Wears hearing aid Wears glasses Wears partial dentures Wears dentures History of renal disease High cholesterol Easy bruising Injury of head and neck Difficulty swallowing History of hiatal hernia Gastric reflux Former smoker Leg cramps History of pain when walking History of edema History of echocardiogram Cardiology follow-up encounter Syncope (10/2020) History of CVA (cerebrovascular accident) Traumatic subarachnoid hemorrhage (10/2020) Hyperlipidemia Claudication Barretts esophagus TIA (transient ischemic attack) Atherosclerotic heart disease of [place] coronary artery without angina pectoris Left bundle branch block Carotid bruit Left carotid artery stenosis Angiopathy, peripheral Home Medications ?Medication ?Instructions ?Recorded ?Last Taken ?Type aspirin 81 mg tablet,delayed 81 mg PO QDAY SUPPLEMENT 11/04/17 02/26/24 History release (Adult Low Dose Aspirin) cholecalciferol (vitamin D3) 25 1,000 unit PO QDAY SUPPLEMENT 03/11/23 02/26/24 History mcg (1,000 unit) capsule atorvastatin 20 mg tablet 20 mg PO QPM H;D 03/27/24 08/07/24 History metoprolol tartrate 25 mg tablet 25 mg PO BID #180 tabs 06/12/24 Unknown Rx apixaban 5 mg tablet (Eliquis) 2.5 mg PO BID blood thinner 06/28/24 08/08/24 09:00 History torsemide 10 mg tablet 10 mg PO .COMPLEX #60 tabs 07/03/24 08/07/24 Rx omeprazole 20 mg capsule,delayed 20 mg PO BID GERD #180 caps 07/04/24 08/08/24 09:00 Rx release ferrous sulfate 325 mg (65 mg 325 mg PO DAILY anemia 07/16/24 Unknown History iron) tablet (Feosol) amlodipine 10 mg tablet 10 mg PO DAILY #90 tabs 08/01/24 Unknown Rx potassium chloride 10 mEq 10 meq PO QDAY #90 tabs 08/01/24 Unknown Rx tablet,extended release(part/cryst) Allergy/AdvReac Type Severity Reaction Status Date / Time Iodinated Contrast Media AdvReac Severe CKD Verified 08/08/24 14:26 (Iodinated Contrast- Oral and IV Dye) Family History Mother CAD (coronary artery disease) Diabetes Myocardial infarction Brother CAD (coronary artery disease) Hx of CABG Brother CAD (coronary artery disease) Surgical History History of esophagogastroduodenoscopy (EGD) Hx of right cataract extraction Hx of left cataract extraction Hx of colonoscopy Hx of foot surgery History of left-sided carotid endarterectomy (2000) 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) Social History Smoking Status: Former smoker alcohol intake: current details: Rare substance use type: does not use caffeine: Yes Type: coffee Number of servings: 3 ROS ROS ED ROS Narrative Constitutional: No fever, no chills. HEENT: No sore throat. No neck pain. No loss of vision. No rhinorrhea. Cardiovascular: No chest pain. No palpitations. Positive pedal edema. Respiratory: No cough, positive shortness of breath. Low pulse ox. Abdominal: No abdominal pain. No nausea. No vomiting. Questionable abdominal bloating. Genitourinary: No dysuria. No hematuria. Musculoskeletal: No myalgias. No arthralgias. Neurologic: No headaches. No dizziness. No lightheadedness. EXAM Physical Exam Narrative Exam Narrative: Afebrile. Vital signs noted. Cardiovascular examination reveals a regular rate and rhythm. Respiratory examination reveals mild tachypnea. Decreased breath sounds bilateral bases but moving a fair amount of air, no overt wheezing. Abdomen is soft, nontender, without guarding or rebound. Positive right bowel sounds. Bilateral pedal edema noted. Right heel wound bandaged by , no lymphangitic streaking noted erythema of foot. Const Vital Signs: 08/08/24 14:26 08/08/24 14:34 08/08/24 15:54 Temperature 96.8 F L Temperature Source Axillary Pulse Rate 70 Respiratory Rate 26 H Respiratory Effort Normal Non-Labored Respiratory Depth Normal Respiratory Pattern Normal Blood Pressure 141/57 H Blood Pressure Mean 85 Pulse Ox 92 92 Oxygen Delivery Method Nasal Cannula Nasal Cannula Nasal Cannula Oxygen Flow Rate (L/min) 6 5 08/08/24 15:54 Temperature Temperature Source Pulse Rate 70 Respiratory Rate 22 H Respiratory Effort Respiratory Depth Respiratory Pattern Tachypnea Blood Pressure Blood Pressure Mean Pulse Ox Oxygen Delivery Method Oxygen Flow Rate (L/min) MDM MDM MDM Narrative Medical decision making narrative: Differential diagnosis includes but not limited to COPD exacerbation versus CHF versus combination. Also the differential would be pneumonia which she has had a history of, versus pneumothorax. History and physical does not necessarily support pneumonia or pneumothorax. I have low suspicion for pulmonary embolism as he is not tachycardic. I discussed with them that their oxygen machine at home has tubing that allows him to go all around the house. They state that they were told that the length of the tubing does not matter and it could be as long as it needs to be and still deliver the same amount of oxygen. However, they did notice that with his portable machine, they have never had a problem. Comprehensive workup was pursued including chest x-ray and basic laboratory work. He was given a DuoNeb aerosolized treatment and steroids in the event that this is more of a COPD exacerbation. Additionally, I do not suspect pulmonary embolism as he is already on Eliquis, and aspirin as well. I do not feel CTA is indicated, and additionally he has an allergy to IV dye, but this is more secondary to chronic kidney disease. Comprehensive workup was pursued. EKG obtained and interpreted by myself independently shows a ventricular paced rhythm at [address] changes. No STEMI. Chest x-ray in 1 view interpreted by myself does show new pleural effusion on the right when compared to previous x-rays. I reviewed the radiology report which confirms my independent interpretation. It is also consistent with CHF. His laboratory work is pending, however given that he is only satting 92 to 93% on 6 L nasal cannula, I do feel that he will require at least observation. I discussed patient with Dr. Rangel. I reviewed the laboratory work that has returned and his hemoglobin is slightly anemic at 11.0 with platelet count normal at 419, normal white count 9.9. He is slightly hyponatremic at 132 and creatinine elevated 2.55 BUN of 63, high-sensitivity troponin is 24, no acute elevation. Patient will be signed out to Dr. Cm to check the remaining laboratory work and discussed the patient with Dr. Rangel for either observation or admission. He is in stable condition. History & Record Review Discussion w/independent historian: Patient and Family Additional record(s) reviewed:: Prior labs Lab Data Attestation: I reviewed the patient's lab results. Labs: Laboratory Results - last 24 hr 08/08/24 15:45 WBC 9.9 RBC 3.68 L Hgb 11.0 L Hct 34.0 L MCV 92.4 MCH 29.9 MCHC 32.4 RDW Std Deviation 50.8 H RDW Coeff of [place] 15.1 H Plt Count 419 MPV 10.1 Immature Gran % (Auto) 0.800 Neut % (Auto) 82.5 H Lymph % (Auto) 5.7 L [place] % (Auto) 10.0 Eos % (Auto) 0.8 Baso % (Auto) 0.2 Absolute Neuts (auto) 8.2 H Absolute Lymphs (auto) 0.57 L Nucleated RBC % 0 Sodium 132 L Potassium 4.4 Chloride 92 L Carbon Dioxide 30.0 Anion Gap 10 BUN 63 H Creatinine 2.55 H Estim Creat Clear Calc 17.42 Est GFR (MDRD) Af Amer 31 L Est GFR (MDRD) Non-Af 25 L BUN/Creatinine Ratio 24.7 H Glucose 139 H Calcium 9.1 Troponin I High Sens 24 Radiography Chest X-Ray - ED: 1 View, Read by ED Physician, Read by Radiologist, Right Effusion and Left Effusion Diagnostic Testing: Clinical Impression(s) from Imaging Studies Chest X-Ray 08/08/24 15:25 IMPRESSION: Increasing right pleural effusion with right basilar atelectasis and/or infiltrate. Persistent pleural parenchymal changes at the left lung base. Mild degree of vascular congestion and CHF. Electronically Signed: Anthony Lemus MD at 15:37 EST , Management Discussion w/another healthcare provider: Hospitalist Discharge Plan Triage Chief Complaint: Shortness of Breath ED Provider: Pako King Dx/Rx/DC Orders Prescriptions: No Action cholecalciferol (vitamin D3) 25 mcg (1,000 unit) capsule 1,000 unit PO QDAY aspirin [Adult Low Dose Aspirin] 81 mg tablet,delayed release (DR/EC) 81 mg PO QDAY atorvastatin 20 mg tablet 20 mg PO QPM metoprolol tartrate 25 mg tablet 25 mg PO BID Qty: 180 3RF Eliquis 5 mg tablet 2.5 mg PO BID ferrous sulfate [Feosol] 325 mg (65 mg iron) tablet 325 mg PO DAILY torsemide 10 mg tablet 10 mg PO .COMPLEX Qty: 60 11RF Rx Instructions: 10 mg orally twice a day, 4 hours apart (stop Furosemide); omeprazole 20 mg capsule,delayed release(DR/EC) 20 mg PO BID Qty: 180 1RF amlodipine 10 mg tablet 10 mg PO DAILY Qty: 90 3RF potassium chloride 10 mEq tablet,ER particles/crystals 10 meq PO QDAY Qty: 90 3RF Primary Care Provider: Gladis Castro Referrals: Gladis Castro DO [Primary Care Provider] - Print Language: Bengali
[2024-08-08] MEDS: Ipratropium/Albuterol Sulfate 3 ML AMPUL.NEB INHALATION (15:53)
[2024-08-08] MEDS: MethylPREDNISolone 125 MG/2 ML Vial IV (16:02)
[2024-08-08 16:04] LABS: Absolute Lymphocyte Count 0.57 X10^3/uL (0.83-4.51); Absolute Neutrophil Count 8.2 X10^3/uL (2.0-7.7); Basophil# 0.02 X10^3/uL; Basophil% 0.2 % (0-1); Eosinophil# 0.08 X10^3/uL; Eosinophils% 0.8 % (0-5); Lymphocyte # 0.57 X10^3/ul (0.83-4.51); Lymphocyte % 5.7 % (19-41); Mean Corp Hgb Conc 32.4 g/dL (32-36); Mean Corpuscular Hgb 29.9 pg (27.0-32.0); Mean Corpuscular Volume 92.4 fL (80-94); Mean Platelet Vol. 10.1 fl (6.2-12.0); Monocyte# 0.99 X10^3/uL; NRBC Flagged by Analyzer 0 % (0-5); Neutrophil # 8.18 X10^3/uL (2.7-7.7); Neutrophil % 82.5 % (47-70); POSITIVE DIFFERENTIAL YES; Platelet Count 419 K/mm3 (150-450); RBC Distribution Width CV 15.1 % (11.6-14.6); RBC Distribution Width SD 50.8 fl (35.1-43.9); Red Blood Count 3.68 M/mm3 (4.6-6.2); White Blood Count 9.9 K/mm3 (4.4-11.0)
[2024-08-08 16:21] LABS: Anion Gap 10 (5-15); BUN 63 mg/dL (7-18); BUN/Creat Ratio 24.7 RATIO (10-20); Calcium,Total 9.1 mg/dL (8.5-10.1); Chloride 92 mmol/L (98-107); Creatinine, Serum 2.55 mg/dL (0.70-1.30); EST Glomerular Filtration Rate 25 mL/min (>60); Est Glom Filt Rate - Afr Amer 31 mL/min (>60); Estimated Creatinine Clearance 17.42 ml/min; Glucose 139 mg/dL (74-106); Potassium 4.4 mmol/L (3.5-5.1); Sodium Level 132 mmol/L (136-145); Troponin-I HS 24 pg/mL (3.0-78.0)
--- NOTE | 2024-08-08 17:15 | PCM.HP.STD ---
HPI - General General Date of Admission: 08/08/24 Date of Service: 08/08/24 Chief Complaint: Low O2 HPI Narrative FEI ROGERS, is a 89-year-old male history of chronic hypoxia on 4 L O2 at rest and 6 L with exertion, CHF, CHB w/ permanent pacemaker, hypertension, CVA, paroxysmal atrial fibrillation who presented [facility] ED 08/08/2024 with concerns for worsened hypoxia. Reportedly his home health care nurse was present and there were times when he was sleeping that his pulse ox will go down to 70s and then when he would wake up it would go back to baseline but today did not seem to go back to baseline. notes that his legs are more swollen and his abdomen seems little bit more bloated. In the ED chest x-ray with concerns vascular congestion and pleural effusion, additionally had increase in BNP to 1700. Given patient's worsening oxygenation from baseline and above findings hospitalist contacted for admission. Patient evaluated at bedside with and daughter present. Patient has been feeling short of breath at night and will wake up feeling short of breath and has had a sit up at bedtime more than usual, has had some increased swelling in bilateral lower extremities as well as abdomen and the shortness of breath mostly at bedtime. Does have wound on her right ankle that is being treated locally with wound care and has some erythema on right lower extremity that appears to be early cellulitis. [facility] Medical History Septic shock Left ventricular systolic dysfunction Presence of cardiac pacemaker Paroxysmal atrial fibrillation HTN (hypertension), benign Coronary artery disease Chronic kidney disease 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, <= 40%) Esophageal obstruction Hiatal hernia Kidney disease TIA (transient ischemic attack) Hypertension Wears hearing aid Wears glasses Wears partial dentures Wears dentures History of renal disease High cholesterol Easy bruising Injury of head and neck Difficulty swallowing History of hiatal hernia Gastric reflux Former smoker Leg cramps History of pain when walking History of edema History of echocardiogram Cardiology follow-up encounter Syncope (10/2020) History of CVA (cerebrovascular accident) Traumatic subarachnoid hemorrhage (10/2020) Hyperlipidemia Claudication Barretts esophagus TIA (transient ischemic attack) Atherosclerotic heart disease of [place] coronary artery without angina pectoris Left bundle branch block Carotid bruit Left carotid artery stenosis Angiopathy, peripheral Home Medications ?Medication ?Instructions ?Recorded ?Last Taken ?Type aspirin 81 mg tablet,delayed 81 mg PO QDAY SUPPLEMENT 11/04/17 02/26/24 History release (Adult Low Dose Aspirin) cholecalciferol (vitamin D3) 25 1,000 unit PO QDAY SUPPLEMENT 03/11/23 02/26/24 History mcg (1,000 unit) capsule atorvastatin 20 mg tablet 20 mg PO QPM H;D 03/27/24 08/07/24 History metoprolol tartrate 25 mg tablet 25 mg PO BID #180 tabs 06/12/24 Unknown Rx apixaban 5 mg tablet (Eliquis) 2.5 mg PO BID blood thinner 06/28/24 08/08/24 09:00 History torsemide 10 mg tablet 10 mg PO .COMPLEX #60 tabs 07/03/24 08/08/24 09:00 Rx omeprazole 20 mg capsule,delayed 20 mg PO BID GERD #180 caps 07/04/24 08/08/24 09:00 Rx release ferrous sulfate 325 mg (65 mg 325 mg PO DAILY anemia 07/16/24 Unknown History iron) tablet (Feosol) amlodipine 10 mg tablet 10 mg PO DAILY #90 tabs 08/01/24 Unknown Rx potassium chloride 10 mEq 10 meq PO QDAY #90 tabs 08/01/24 Unknown Rx tablet,extended release(part/cryst) Allergy/AdvReac Type Severity Reaction Status Date / Time Iodinated Contrast Media AdvReac Severe CKD Verified 08/08/24 14:26 (Iodinated Contrast- Oral and IV Dye) Family History Mother CAD (coronary artery disease) Diabetes Myocardial infarction Brother CAD (coronary artery disease) Hx of CABG Brother CAD (coronary artery disease) Surgical History History of esophagogastroduodenoscopy (EGD) Hx of right cataract extraction Hx of left cataract extraction Hx of colonoscopy Hx of foot surgery History of left-sided carotid endarterectomy (2000) 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) Social History Smoking Status: Former smoker alcohol intake: current details: Rare substance use type: does not use caffeine: Yes Type: coffee Number of servings: 3 ROS ROS Narrative General: Denies fever/chills HENT: Denies headache, denies stuffy nose, denies sore throat EYES: Denies changes in vision Resp: Dry cough, nonproductive, shortness of breath especially at bedtime Cardiac: Denies chest pain GI: Some abdominal distention, denies changes in bowel, denies nausea/vomiting : Denies changes in urination Extremity: Increased swelling lower extremities MSK: Some general weakness Neuro: Denies any numbness/tingling Heme: Easy bruising Skin: Right heel lesion and some patchy erythema on right lower extremity Psychiatric: No complaints voiced Vital Signs Vital Signs Vital Signs: 08/08/24 14:26 08/08/24 14:34 08/08/24 15:54 Temperature 96.8 F L Temperature Source Axillary Pulse Rate 70 Respiratory Rate 26 H Respiratory Effort Normal Non-Labored Respiratory Depth Normal Respiratory Pattern Normal Blood Pressure 141/57 H Blood Pressure Mean 85 Pulse Ox 92 92 Oxygen Delivery Method Nasal Cannula Nasal Cannula Nasal Cannula Oxygen Flow Rate (L/min) 6 5 08/08/24 15:54 08/08/24 16:18 Temperature Temperature Source Pulse Rate 70 70 Respiratory Rate 22 H 22 H Respiratory Effort Respiratory Depth Respiratory Pattern Tachypnea Blood Pressure 138/50 H Blood Pressure Mean 79 Pulse Ox 91 Oxygen Delivery Method Nasal Cannula Oxygen Flow Rate (L/min) 5 Weight Weight: 69.082 kg Body Mass Index (BMI) 25.3 Physical Exam Narrative General: Alert, oriented, no apparent distress HEENT: Atraumatic, normocephalic Eyes: Anicteric, normal conjunctiva, extraocular movements grossly intact Neck: Supple Respiratory: Diminished bilaterally with increased respiratory effort Cardiovascular: Regular rate GI: Somewhat distended Extremities: 2+ bilateral lower extremity pitting edema Musculoskeletal: Moving all extremities Neuro: No overt focal neurological deficits Skin: Right heel wound with eschar without drainage but does have some patchy erythema on right lower extremity, scattered bruising on upper extremities Psych: Cooperative Results Lab / Micro Data 08/08/24 15:45 08/08/24 15:45 Labs: Laboratory Results - last 24 hr 08/08/24 15:45: WBC 9.9, RBC 3.68 L, Hgb 11.0 L, Hct 34.0 L, MCV 92.4, MCH 29.9, MCHC 32.4, RDW Std Deviation 50.8 H, RDW Coeff of [place] 15.1 H, Plt Count 419, MPV 10.1, Immature Gran % (Auto) 0.800, Neut % (Auto) 82.5 H, Lymph % (Auto) 5.7 L, [place] % (Auto) 10.0, Eos % (Auto) 0.8, Baso % (Auto) 0.2, Absolute Neuts (auto) 8.2 H, Absolute Lymphs (auto) 0.57 L, Nucleated RBC % 0, Sodium 132 L, Potassium 4.4, Chloride 92 L, Carbon Dioxide 30.0, Anion Gap 10, BUN 63 H, Creatinine 2.55 H, Estim Creat Clear Calc 17.42, Est GFR (MDRD) Af Amer 31 L, Est GFR (MDRD) Non-Af 25 L, BUN/Creatinine Ratio 24.7 H, Glucose 139 H, Calcium 9.1, Troponin I High Sens 24, B-Natriuretic Peptide 1719.0 H Imaging Radiology Impression Chest X-Ray 08/08/24 15:25 IMPRESSION: Increasing right pleural effusion with right basilar atelectasis and/or infiltrate. Persistent pleural parenchymal changes at the left lung base. Mild degree of vascular congestion and CHF. Electronically Signed: Anthony Lemus MD at 15:37 EST , Assessment & Plan Assessment/Plan (1) CHF (congestive heart failure): QUALIFIERS: Heart failure type: combined systolic and diastolic Heart failure chronicity: acute on chronic Qualified Code(s): I50.43 - Acute on chronic combined systolic (congestive) and diastolic (congestive) heart failure (2) Hypoxia: PLAN: Plan # Worsening hypoxia on chronic hypoxic respiratory failure suspect secondary to acute exacerbation of chronic heart failure with preserved ejection fraction -Patient 87 to 88% on 5 L O2 at rest on my evaluation -Received 1 mg of IV Bumex in ED -Admit to telemetry -BNP 1700 -CXR concerning for fluid overload with vascular congestion and pleural effusion -Continue IV diuresis -Last echo 07/17/2024 with EF of 50% and no regional wall motion abnormalities though in 2020 was noted to have stage II diastolic dysfunction on echo suspect this is an exacerbation of heart failure preserved ejection fraction -Repeat echo not ordered given patient just had echocardiogram less than 1 month ago -Daily weights, I's and O's -Fluid restriction, heart healthy diet # [place] on CKD stage IV -Patient's creatinine up to 2.55, was 1.91 on discharge -Suspect cardiorenal -Avoid nephrotoxic agents -IV diuresis as above -Daily BMPs -If no improvement with bumex can consider nephrology consult or further workup -Daily weights, I's and O's # Right lower extremity erythema -With some patchy erythema and appearing to be early cellulitic changes -No drainage or anything to culture, will start antibiotics -Also consult wound nurse for his right heel wound # Paroxysmal atrial fibrillation -Continue metoprolol -Continue Eliquis # History of CVA/History of left carotid stenosis status post CEA x 2 -Continue aspirin, Eliquis, atorvastatin #GERD with history of Bales's esophagus and chronic dysphagia with esophageal stent -Follows Dr. Carlin on outpatient basis -Continue PPI # History of cardiac arrest status post permanent pacemaker -Patient was here end of June and into July after cardiac arrest secondary to complete heart block and subsequent pacemaker placement #DVT ppx: Continue Eliquis Sonia Rangel MD Charges/Coding Visit Charges Inpatient E&M: 16303 Init Hosp L2
[2024-08-08] MEDS: Bumetanide 1 MG/4 ML Vial IV (17:31)
--- NOTE | 2024-08-08 17:35 | CASEMGMT ---
Social Work SW met with patient with and daughter at bedside. SW was able to confirm that all information provided during last face to face assessment is still accurate. Patient states that they are currently using [facility]. Patient and state they have a nurse coming out 1-2 days a week, ST and PT one day a week. states that their children are helping out in the home as well. and patient would like patient to discharge home when medically ready. No further needs identified at this time. Sue Turcios, DIRECTOR EMERGENCY, STOCK DRIER TENDER
[2024-08-08] MEDS: Bumetanide 1 MG/4 ML Vial 2 MG IV (20:15)
[2024-08-08] MEDS: 0.9% Saline Lock 10 ML Syringe IV (20:16)
[2024-08-08] MEDS: Atorvastatin Calcium 20 MG Tablet PO (20:40)
[2024-08-08] MEDS: APIXABAN 2.5 MG TABLET (WCH) PO (20:40)
[2024-08-08] MEDS: Pantoprazole Sodium 20 MG Tablet PO (20:40)
[2024-08-08] MEDS: Metoprolol Tartrate 25 MG Tablet PO (20:40)
[2024-08-08] MEDS: Ampicillin/Sulbactam 3 GM in 0.9% Normal Saline (100mL MB+) 100 ML IV (20:41)
[2024-08-09] VITALS (13 sets, daily range): BP systolic 102–121; BP diastolic 47–61; PULSE 69–73; RESP 12–18; TEMP 36.2–36.6; O2SAT 88–100; BMI 24.0
--- NOTE | 2024-08-09 05:00 | PCM.HOSP.N ---
Hospitalist Note Patient with increased oxygen needs, given presentation history will place on BIPAP, continued on bumex.
[2024-08-09 06:15] LABS: Absolute Neutrophil Count 4.5 X10^3/uL (2.0-7.7); Eosinophil# 0.01 X10^3/uL; Eosinophils% 0.2 % (0-5); Hematocrit 32.4 % (40-54); Hemoglobin 10.5 g/dL (13.0-16.5); Lymphocyte % 4.1 % (19-41); Mean Corp Hgb Conc 32.4 g/dL (32-36); Mean Corpuscular Hgb 29.8 pg (27.0-32.0); Monocyte# 0.03 X10^3/uL; Monocyte% 0.6 % (0-10); NRBC Flagged by Analyzer 0 % (0-5); Neutrophil # 4.54 X10^3/uL (2.7-7.7); Neutrophil % 94.3 % (47-70); POSITIVE DIFFERENTIAL YES; Platelet Count 324 K/mm3 (150-450); RBC Distribution Width CV 14.9 % (11.6-14.6); RBC Distribution Width SD 49.9 fl (35.1-43.9); Red Blood Count 3.52 M/mm3 (4.6-6.2); White Blood Count 4.8 K/mm3 (4.4-11.0)
[2024-08-09 06:43] LABS: Anion Gap 9 (5-15); BUN 66 mg/dL (7-18); BUN/Creat Ratio 25.2 RATIO (10-20); Calcium,Total 8.7 mg/dL (8.5-10.1); Chloride 93 mmol/L (98-107); Creatinine, Serum 2.62 mg/dL (0.70-1.30); EST Glomerular Filtration Rate 25 mL/min (>60); Est Glom Filt Rate - Afr Amer 30 mL/min (>60); Estimated Creatinine Clearance 16.95 ml/min; Glucose 152 mg/dL (74-106); Potassium 4.3 mmol/L (3.5-5.1); Sodium Level 128 mmol/L (136-145)
--- NOTE | 2024-08-09 08:07 | PN.HOSP_ITS ---
Reason for Visit Reason for Visit: Diagnoses Acute on chronic combined systolic (congestive) and diastolic (congestive) heart failure (08/08/24) Hypoxemia (08/08/24) Objective Data Objective Data Vital Signs: Vital Signs Temp Pulse Resp BP Pulse Ox O2 Del Method O2 Flow Rate 97.8 F 70 18 121/53 H 100 Bi-pap 12 08/09/24 05:00 08/09/24 05:00 08/09/24 05:30 08/09/24 05:00 08/09/24 06:45 08/09/24 06:45 08/09/24 05:00 FiO2 35 08/09/24 06:45 Oxygen Flow Rate (L/min) 12 Oxygen Delivery Method Bi-pap Weight: 144 lb 9.972 oz Body Mass Index (BMI) 24.0 Intake & Output: Intake and Output for Last 24 Hours 08/07/24 08/08/24 08/09/24 23:59 23:59 23:59 Intake Total 112 / 142 165 / 165 Output Total 100 / 100 425 / 425 Balance -260 / -260 Lab / Micro Data 08/09/24 05:45 08/09/24 05:45 Labs: Laboratory Results - last 24 hr 08/08/24 15:45: WBC 9.9, RBC 3.68 L, Hgb 11.0 L, Hct 34.0 L, MCV 92.4, MCH 29.9, MCHC 32.4, RDW Std Deviation 50.8 H, RDW Coeff of [place] 15.1 H, Plt Count 419, MPV 10.1, Immature Gran % (Auto) 0.800, Neut % (Auto) 82.5 H, Lymph % (Auto) 5.7 L, [place] % (Auto) 10.0, Eos % (Auto) 0.8, Baso % (Auto) 0.2, Absolute Neuts (auto) 8.2 H, Absolute Lymphs (auto) 0.57 L, Nucleated RBC % 0, Sodium 132 L, Potassium 4.4, Chloride 92 L, Carbon Dioxide 30.0, Anion Gap 10, BUN 63 H, Creatinine 2.55 H, Estim Creat Clear Calc 17.42, Est GFR (MDRD) Af Amer 31 L, Est GFR (MDRD) Non-Af 25 L, BUN/Creatinine Ratio 24.7 H, Glucose 139 H, Calcium 9.1, Troponin I High Sens 24, B-Natriuretic Peptide 1719.0 H 08/09/24 05:45: WBC 4.8, RBC 3.52 L, Hgb 10.5 L, Hct 32.4 L, MCV 92.0, MCH 29.8, MCHC 32.4, RDW Std Deviation 49.9 H, RDW Coeff of [place] 14.9 H, Plt Count 324, MPV 10.0, Immature Gran % (Auto) 0.800, Neut % (Auto) 94.3 H, Lymph % (Auto) 4.1 L, [place] % (Auto) 0.6, Eos % (Auto) 0.2, Baso % (Auto) 0.0, Absolute Neuts (auto) 4.5, Absolute Lymphs (auto) 0.20 L, Nucleated RBC % 0, Sodium 128 L, Potassium 4.3, Chloride 93 L, Carbon Dioxide 25.0, Anion Gap 9, BUN 66 H, Creatinine 2.62 H, Estim Creat Clear Calc 16.95, Est GFR (MDRD) Af Amer 30 L, Est GFR (MDRD) Non-Af 25 L, BUN/Creatinine Ratio 25.2 H, Glucose 152 H, Calcium 8.7 Radiography Diagnostic Testing: Radiology Impression Chest X-Ray 08/08/24 15:25 IMPRESSION: Increasing right pleural effusion with right basilar atelectasis and/or infiltrate. Persistent pleural parenchymal changes at the left lung base. Mild degree of vascular congestion and CHF. Electronically Signed: Anthony Lemus MD at 15:37 EST , Physical Exam Narrative Seen and examined. Patient is frail and fatigued. On high flow oxygen. Had BiPAP at 35% FiO2. High flow oxygen 12 to 13 L/min at last night. Shortness of breath. Denies chest pain pressure tightness Physical exam General: Alert, Oriented x3, Cooperative, frail, cannot sit up alone without support. HEENT: Atraumatic, PERRLA, EOMI, Normocephalic Oral: Mucosa dry no Gingival or Mucosal Lesions/ Ulcerations Neck: Supple, No JVD, Negative Carotid Bruits Chest wall/Lungs: Air entry diminished in bilateral lung bases. Occasional basal crepitations. On high flow oxygen Cardiovascular: Regular rate, Regular Rhythm, Normal S1, Normal S2, No M/G/R Abdomen: Bowel Sounds Present, Soft, Non Tender, Non-Distended : No dysuria. No renal angle tenderness. No suprapubic tenderness. Extremities: 2+ bilateral ankle edema, Capillary Refill Less than 3 Seconds Skin: No rashes, No breakdown Musculoskeletal: No Tenderness to Palpation of Joints or Extremities. ROM decreased. Muscle strength 4/5 at major joints of lower extremities Neurological: Cranial nerves II-XII grossly intact, DTR 2+/4. No acute focal neurological deficit. Psych/Mental Status: Normal Affect, Appropriate. Assessment & Plan Assessment/Plan (1) CHF (congestive heart failure): QUALIFIERS: Heart failure chronicity: acute on chronic Heart failure type: combined systolic and diastolic Qualified Code(s): I50.43 - Acute on chronic combined systolic (congestive) and diastolic (congestive) heart failure (2) Hypoxia: PLAN: Plan 89-year-old gentleman was admitted with shortness of breath with baseline for 4 L O2 at rest and 6 L on exertion but while sleeping his pulse ox was low in the 70s. Denies recent fever chills cough. # Worsening hypoxia on chronic hypoxic respiratory failure suspect secondary to acute exacerbation of chronic heart failure with preserved ejection fraction: Patient is being admitted in PCU -Patient 87 to 88% on 5 L O2 at rest on my evaluation. Patient last night was on high flow oxygen 12-13 and BiPAP 35% FiO2. Currently on 6 L of high flow oxygen. I agree with IV Bumex 2 mg twice daily. BNP 1700. Heart failure core measures including intake and output, fluid restriction less than 1500 mL, daily weight monitoring, kidney and electrolytes monitoring. -Received 1 mg of IV Bumex in ED - -Last echo 07/17/2024 with EF of 50% and no regional wall motion abnormalities though in 2020 was noted to have stage II diastolic dysfunction on echo suspect this is an exacerbation of heart failure preserved ejection fraction # CHADWICK on CKD stage IV -Patient's creatinine up to 2.55, was 1.91 on discharge Creatinine went up to 0.62 slightly. Continue diuresis -Suspect cardiorenal. -Avoid nephrotoxic agents. Daily BMP. # Right lateral heel unstageable pressure wound, present on admission. Patient also has erythema probably due to venous edema, right lower leg. Localized erythema probably in right forearm due to superficial thrombophlebitis. It is not tender or is spreading therefore unlikely cellulitis. Wound nurse consulted - # Paroxysmal atrial fibrillation -Continue metoprolol -Continue Eliquis # History of CVA/History of left carotid stenosis status post CEA x 2 -Continue aspirin, Eliquis, atorvastatin #GERD with history of Bales's esophagus and chronic dysphagia with esophageal stent -Follows Dr. Carlin on outpatient basis -Continue PPI # History of cardiac arrest status post permanent pacemaker -Patient was here end of June and into July after cardiac arrest secondary to complete heart block and subsequent pacemaker placement #DVT ppx: Continue Eliquis Charges/Coding Visit Charges Inpatient E&M: 89438 Subs Hosp L2
--- NOTE | 2024-08-09 09:55 | WOUNDNOTE ---
wound photo; right heel
--- NOTE | 2024-08-09 09:56 | WOUNDNOTE ---
wound photo: left heel
[2024-08-09] MEDS: Metoprolol Tartrate 25 MG Tablet PO ×2 (11:23→21:17)
[2024-08-09] MEDS: Aspirin E.C. 81 MG Tablet PO (11:23)
[2024-08-09] MEDS: Pantoprazole Sodium 20 MG Tablet PO ×2 (11:23→21:17)
[2024-08-09] MEDS: APIXABAN 2.5 MG TABLET (WCH) PO ×2 (11:23→21:18)
[2024-08-09] MEDS: Ferrous Sulfate 325 MG Tablet PO (11:23)
[2024-08-09] MEDS: Potassium Chloride Oral Tablet 10 MEQ PO (11:23)
[2024-08-09] MEDS: amLODIPine 10 MG Tablet PO (11:24)
[2024-08-09] MEDS: Bumetanide 1 MG/4 ML Vial 2 MG IV ×2 (11:24→17:48)
[2024-08-09] MEDS: Ampicillin/Sulbactam 3 GM in 0.9% Normal Saline (100mL MB+) 100 ML IV ×2 (11:26→21:19)
--- NOTE | 2024-08-09 12:56 | CHAPLAIN ---
Type of Pastoral Visit _x__ Initial Visit ___ Follow-up Visit ___ On-call Visit ___ General Patient Visit ___ Spiritual Assessment ___ Family Conference ___ Bereavement ___ Rapid Response ___ Code Blue ___ Other (describe below) Pastoral Care Referral From ___ Patient _x__ Family ___ Nurse ___ Physician ___ Nitrator Operator ___ Check Scaler ___ Other (describe below) Sacrament/Intervention _x__ Active listening ___ Anointing ___ Congregational ___ Bereavement ___ Communion ___ Radha exploration ___ ___ Life review _x__ Prayer ___ Reconciliation ___ Sacrament of Sick _x__ Supportive presence ___ Wedding ___ Other (describe below) Pastoral Comments patient is sitting up in the chair and is alert; several family members are in the room; pt is smiling and able to answer questions; pt is feeling better now and however admits he is not sure what is happening next to help him recover more fully; pt otherwise states that he has no needs or concerns; prayer is welcomed; family members are offered support as needed too
--- NOTE | 2024-08-09 16:00 | CASEMGMT ---
RN CM chart review: Patient was admitted 07/16/24-07/26/24 for complete heart block with code blue. See RN CM assessment from 07/17/24. Patient was discharged to home with increase in home oxygen, [facility], family support, and follow-up plans in place. Patient returned to [facility] ED on 08/08/24 for increase SOB and was admitted for fluid overload and CHF exacerbation. Patient is requiring increase in oxygen 6-8 lpm high flow oxygen. RN CM in to discuss readmission and needs at discharge, and daughters at bedside. Patient had attended all scheduled follow-up appts and was taking medications as prescribed. Per , patient was adhering to fluid restrictions and low sodium diet. Patient has been weighing himself daily and keeping a log, showed this RN CM the daily weight log. states that [facility] has been visiting patient. RN CM discussed palliative care and patient and family agreeable to consult, RN CM to updated hospitalist. Patient and wish to discharge home with resumption of HHC. RN CM will monitor for increase in home oxygen at discharge. CM will continue to follow this patient and plan for a safe discharge.
[2024-08-09] MEDS: Ensure Plus High Protein 120 ML LIQUID PO (17:48)
[2024-08-09] MEDS: Atorvastatin Calcium 20 MG Tablet PO (21:18)
[2024-08-09] MEDS: 0.9% Saline Lock 10 ML Syringe IV (21:21)
[2024-08-10] VITALS (15 sets, daily range): BP systolic 109–125; BP diastolic 46–70; PULSE 70–74; RESP 12–18; TEMP 36.2–36.6; O2SAT 86–99; BMI 25.4
[2024-08-10 05:55] LABS: Absolute Lymphocyte Count 0.27 X10^3/uL (0.83-4.51); Absolute Neutrophil Count 11.1 X10^3/uL (2.0-7.7); Basophil# 0.01 X10^3/uL; Basophil% 0.1 % (0-1); Hemoglobin 9.7 g/dL (13.0-16.5); Lymphocyte # 0.27 X10^3/ul (0.83-4.51); Lymphocyte % 2.1 % (19-41); Mean Corp Hgb Conc 32.3 g/dL (32-36); Mean Corpuscular Hgb 30.1 pg (27.0-32.0); Mean Corpuscular Volume 93.2 fL (80-94); Mean Platelet Vol. 10.3 fl (6.2-12.0); Monocyte# 1.13 X10^3/uL; NRBC Flagged by Analyzer 0 % (0-5); Neutrophil # 11.09 X10^3/uL (2.7-7.7); Neutrophil % 88.2 % (47-70); POSITIVE DIFFERENTIAL YES; Platelet Count 275 K/mm3 (150-450); RBC Distribution Width CV 15.3 % (11.6-14.6); RBC Distribution Width SD 52.6 fl (35.1-43.9); Red Blood Count 3.22 M/mm3 (4.6-6.2); White Blood Count 12.6 K/mm3 (4.4-11.0)
[2024-08-10 06:33] LABS: Anion Gap 9 (5-15); BUN 76 mg/dL (7-18); BUN/Creat Ratio 24.9 RATIO (10-20); Calcium,Total 8.4 mg/dL (8.5-10.1); Chloride 95 mmol/L (98-107); Creatinine, Serum 3.05 mg/dL (0.70-1.30); EST Glomerular Filtration Rate 21 mL/min (>60); Est Glom Filt Rate - Afr Amer 25 mL/min (>60); Estimated Creatinine Clearance 14.56 ml/min; Glucose 132 mg/dL (74-106); Potassium 4.6 mmol/L (3.5-5.1); Sodium Level 131 mmol/L (136-145)
[2024-08-10] MEDS: Aspirin E.C. 81 MG Tablet PO (08:59)
[2024-08-10] MEDS: APIXABAN 2.5 MG TABLET (WCH) PO ×2 (08:59→21:22)
[2024-08-10] MEDS: 0.9% Saline Lock 10 ML Syringe IV ×3 (08:59→21:21)
[2024-08-10] MEDS: Ensure Plus High Protein 120 ML LIQUID PO ×3 (09:00→18:45)
[2024-08-10] MEDS: Bumetanide 1 MG/4 ML Vial 2 MG IV ×2 (09:01→18:45)
[2024-08-10] MEDS: Metoprolol Tartrate 25 MG Tablet PO ×2 (09:02→21:22)
[2024-08-10] MEDS: Potassium Chloride Oral Tablet 10 MEQ PO (09:02)
[2024-08-10] MEDS: amLODIPine 10 MG Tablet PO (09:03)
[2024-08-10] MEDS: Pantoprazole Sodium 20 MG Tablet PO ×2 (09:03→21:22)
[2024-08-10] MEDS: Ampicillin/Sulbactam 3 GM in 0.9% Normal Saline (100mL MB+) 100 ML IV ×2 (09:04→21:15)
--- NOTE | 2024-08-10 10:42 | PCM.PN.HOSP ---
Reason for Visit Reason for Visit: Diagnoses Acute on chronic combined systolic (congestive) and diastolic (congestive) heart failure (08/08/24) Hypoxemia (08/08/24) Subjective Subjective Patient is an 89-year-old gentleman admitted with progressive shortness of breath and assessment of acute congestive heart failure made admitted to a monitored bed for subsequent management Objective Data Objective Data Vital Signs: Vital Signs Temp Pulse Resp BP Pulse Ox O2 Del Method O2 Flow Rate 97.1 F L 70 18 109/46 L 95 High Flow 7 08/10/24 09:00 08/10/24 09:02 08/10/24 09:00 08/10/24 09:00 08/10/24 09:55 08/10/24 09:55 08/10/24 09:55 FiO2 40 08/10/24 07:09 Oxygen Flow Rate (L/min) 7 Oxygen Delivery Method High Flow Weight: 69.4 kg Body Mass Index (BMI) 25.4 Intake & Output: Intake and Output for Last 24 Hours 08/08/24 08/09/24 08/10/24 23:59 23:59 23:59 Intake Total 112 / 142 589 / 589 Output Total 100 / 100 1025 / 1025 100 / 100 Balance 12 / 42 -436 / -436 -100 / -100 Lab / Micro Data 08/10/24 05:01 08/10/24 05:01 Labs: Laboratory Results - last 24 hr 08/10/24 05:01: WBC 12.6 H, RBC 3.22 L, Hgb 9.7 L, Hct 30.0 L, MCV 93.2, MCH 30.1, MCHC 32.3, RDW Std Deviation 52.6 H, RDW Coeff of [place] 15.3 H, Plt Count 275, MPV 10.3, Immature Gran % (Auto) 0.600, Neut % (Auto) 88.2 H, Lymph % (Auto) 2.1 L, [place] % (Auto) 9.0, Eos % (Auto) 0.0, Baso % (Auto) 0.1, Absolute Neuts (auto) 11.1 H, Absolute Lymphs (auto) 0.27 L, Nucleated RBC % 0, Sodium 131 L, Potassium 4.6, Chloride 95 L, Carbon Dioxide 27.0, Anion Gap 9, BUN 76 H, Creatinine 3.05 H, Estim Creat Clear Calc 14.56, Est GFR (MDRD) Af Amer 25 L, Est GFR (MDRD) Non-Af 21 L, BUN/Creatinine Ratio 24.9 H, Glucose 132 H, Calcium 8.4 L Physical Exam Narrative GENERAL: cooperative HEENT: Atraumatic; normocephalic EYES; Anicteric, Normal Conjunctiva NECK; supple, normal thyroid, RESPIRATORY: Diminished to auscultation CARDIOVASCULAR: Regular S1 S2, GI: soft, normoactive bowel sounds, : No Renal angle tenderness; EXTREMITIES: No edema, no clubbing, MUSCULOSKELETAL: no muscle wasting NEURO: Awake; no lateralizing signs. SKIN: No Rash PSYCH; Flat affect Assessment & Plan Assessment/Plan (1) CHF (congestive heart failure): QUALIFIERS: Heart failure type: combined systolic and diastolic Heart failure chronicity: acute on chronic Qualified Code(s): I50.43 - Acute on chronic combined systolic (congestive) and diastolic (congestive) heart failure (2) Hypoxia: PLAN: Plan Patient is an 89-year-old gentleman admitted with progressive shortness of breath and assessment of acute congestive heart failure made admitted to a monitored bed for subsequent management 1. Acute on chronic hypoxic respiratory failure ? Secondary to CHF with acute exacerbation admitted to a monitored bed with treatment of the underlying condition as well as supplemental oxygen titrated to keep saturation greater than 90 2. Acute congestive heart failure with preserved ejection fraction -[facility] 07/17/2024 with EF of 50% and no regional wall motion abnormalities. Patient management strict input and output, daily weight, fluid restriction, low-sodium diet as well as diuretic therapy with subsequent monitoring of patient electrolyte levels 3. Acute kidney injury ? Superimposed on chronic kidney disease stage IV. Patient has continued to experience worsening of kidney function. Consult placed to nephrology 4. Chronic kidney disease stage IV ? With worsening of patient kidney function consult was placed to nephrology 5. Paroxysmal A-fib ? Rate controlled on systemic anticoagulation with apixaban continue 6. Right lateral heel unstageable pressure wound, - present on admission. Patient also has erythema probably due to venous edema, right lower leg. Localized erythema probably in right forearm due to superficial thrombophlebitis. It is not tender or is spreading therefore unlikely cellulitis. Wound nurse consulted - #7. Previous history of CVA ? Currently without any residual effect 8. Carotid artery disease ? With previous left CEA x 2 9. GERD ? With Bales's esophagus and chronic dysphagia with dysphagia stent patient is on PPI and is followed by Dr. Bernardo on outpatient basis 10. 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 Stable no active issues 11. Anemia ? Secondary to chronic disorder monitoring H&H and transfuse if patient becomes symptomatic or hemoglobin falls below 7 12. Hyponatremia ? Secondary to fluid overload status do expect improvement with diuresis 13. DVT prophylaxis ? Patient is on apixaban Time spent in the patient's overall evaluation,decision-making process, review of diagnostic data, adjustment of management, discussion with other providers, nursing nursing and ancillary staff involved in patient's care documentation, 50 Minutes Charges/Coding Visit Charges Inpatient E&M: 09548 [facility] Hosp L3
--- NOTE | 2024-08-10 11:38 | PCM.CONS.R ---
Assessment & Plan Assessment/Plan (1) CHADWICK (acute kidney injury): (2) Chronic kidney disease, stage IV (severe): (3) Hypoxia: (4) CHF (congestive heart failure): QUALIFIERS: Heart failure type: combined systolic and diastolic Heart failure chronicity: acute on chronic Qualified Code(s): I50.43 - Acute on chronic combined systolic (congestive) and diastolic (congestive) heart failure PLAN: Plan This is a pleasant unfortunate 89-year-old male with past medical history significant for chronic kidney disease stage IV, coronary artery disease status post CABG in 2007, heart failure reduced EF (echo 06/2024 stage II diastolic dysfunction, EF 50%; before that EF was 35%), hypertension, proximal atrial fibrillation, PAD status post carotid enterectomy, Bales's esophagus/esophageal stricture with chronic dysphagia followed by Dr. Carlin, hyperlipidemia, chronic hypoxia on 4 L O2 at rest, 6 L with exertion at all times, permanent pacemaker placement last admission who was admitted to the hospital for hypoxia and acute decompensated heart failure. Nephrology consulted in view of rising serum creatinine. Patient has history of chronic kidney disease stage IV. Baseline creatinine had been around 2 mg/dL up until April 2024 however there seems to be some progression of CKD since then. Since April patient has had multiple episodes of CHADWICK and also had CHADWICK in setting of cardiac arrest, complete heart block with eventual PPM placement. Current baseline creatinine is possibly now ranging around 2.5 to 3 mg/dL however it is difficult to determine true EGFR given fluctuating serum creatinine trends from cardiorenal syndrome physiology. Patient may have had some progression of CKD. At this time there is no acute indication for renal placement therapy however patient is hypervolemic. Home weights have been ranging around 141 to 142 pounds however patient's weight back in June 2024 was around 127 pounds. Weight today 152lbs. He has significant edema extending up into his bilateral thighs. Home diuretic was torsemide 10 mg daily. He is currently on bumetanide 2 mg IV twice daily. Admission chest x-ray showed increasing right pleural effusion, mild degree of vascular congestion and CHF. Patient has external Reeys catheter, at least 500ml UOP today. This is CHADWICK versus progression of CKD from cardiorenal syndrome physiology and recent CHADWICK episodes. 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 Given patient's comorbidities renal replacement therapy would likely be very difficult for patient to undergo; explained role of hemodialysis outpatient hemodialysis inpatient hemodialysis dialysis catheter placement, etc with patient and . Questions were answered. Continue with IV diuretic, fluid restriction, strict I&O. Labs ordered for morning. Patient and his may benefit from Palliative care evaluation. Further orders forthcoming as hospitalization evolves, thank you for allowing us to participate in the care of Ms. Rogers. HPI Consult Data Date of Consult: 08/10/24 HPI Narrative HPI Narrative: FEI ROGERS, is a 89 M with past medical history significant for chronic kidney disease stage IV, coronary artery disease status post CABG in 2007, heart failure reduced EF, hypertension, proximal atrial fibrillation, PAD status post carotid enterectomy, Bales's esophagus/esophageal stricture with chronic dysphagia followed by Dr. Carlin, hyperlipidemia, chronic hypoxia on 4 L O2 at rest, 6 L with exertion at all times, permanent pacemaker placement who presented to the hospital on August 08 with complaints of shortness of breath and low pulse ox level at home admitted for worsening hypoxia felt to be secondary to acute exacerbation of heart failure. Nephrology consulted in view of CHADWICK. Patient has known history of chronic kidney disease stage IV followed by Dr. Hopper in [place] office, last seen in June 2024. Baseline creatinine had been ranging around 2 mg/dL prior to multiple hospitalizations before April 2024. Patient was last seen by our group when admitted to [facility] in May for CHADWICK. CHADWICK secondary to cardiorenal syndrome versus possible progression of underlying CKD. Patient has never undergone any renal placement therapy. Patient was admitted back to the hospital end of June and discharged to home on July 26, admitted for complete heart block status post CODE BLUE in ER with ROSC after 3 minutes of ACLS initially had temporary pacemaker placed and then permanent pacemaker implanted once more stable. During last hospitalization serum creatinine was 3.45 on admission (07/16 and by time of hospital discharge on July 26 creatinine 1.91 mg/dL. Patient is resting in bed, his is at bedside. Patient denies any recent nausea vomiting or diarrhea. He is complaining of lower extremity edema. Patient reports he is urinating. Denies dysuria or hematuria. has home weight log and recently home weights ranging around 141 142 pounds, she reports they have been trying to keep fluid restricted to no more than 2 L/day. [facility] Medical History (Updated 08/10/24 @ 11:56 by LEXII Mitchell) CHADWICK (acute kidney injury) Septic shock Left ventricular systolic dysfunction Presence of cardiac pacemaker Paroxysmal atrial fibrillation HTN (hypertension), benign Coronary artery disease Chronic kidney disease 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, <= 40%) Esophageal obstruction Hiatal hernia Kidney disease TIA (transient ischemic attack) Hypertension Wears hearing aid Wears glasses Wears partial dentures Wears dentures History of renal disease High cholesterol Easy bruising Injury of head and neck Difficulty swallowing History of hiatal hernia Gastric reflux Former smoker Leg cramps History of pain when walking History of edema History of echocardiogram Cardiology follow-up encounter Syncope (10/2020) History of CVA (cerebrovascular accident) Traumatic subarachnoid hemorrhage (10/2020) Hyperlipidemia Claudication Barretts esophagus TIA (transient ischemic attack) Atherosclerotic heart disease of [place] coronary artery without angina pectoris Left bundle branch block Carotid bruit Left carotid artery stenosis Angiopathy, peripheral Home Medications ?Medication ?Instructions ?Recorded ?Last Taken ?Type aspirin 81 mg tablet,delayed 81 mg PO QDAY SUPPLEMENT 11/04/17 02/26/24 History release (Adult Low Dose Aspirin) cholecalciferol (vitamin D3) 25 1,000 unit PO QDAY SUPPLEMENT 03/11/23 02/26/24 History mcg (1,000 unit) capsule atorvastatin 20 mg tablet 20 mg PO QPM H;D 03/27/24 08/07/24 History metoprolol tartrate 25 mg tablet 25 mg PO BID #180 tabs 06/12/24 Unknown Rx apixaban 5 mg tablet (Eliquis) 2.5 mg PO BID blood thinner 06/28/24 08/08/24 09:00 History torsemide 10 mg tablet 10 mg PO .COMPLEX #60 tabs 07/03/24 08/08/24 09:00 Rx omeprazole 20 mg capsule,delayed 20 mg PO BID GERD #180 caps 07/04/24 08/08/24 09:00 Rx release ferrous sulfate 325 mg (65 mg 325 mg PO DAILY anemia 07/16/24 Unknown History iron) tablet (Feosol) amlodipine 10 mg tablet 10 mg PO DAILY #90 tabs 08/01/24 Unknown Rx potassium chloride 10 mEq 10 meq PO QDAY #90 tabs 01/14/25 Unknown Rx tablet,extended release(part/cryst) Allergy/AdvReac Type Severity Reaction Status Date / Time Iodinated Contrast Media AdvReac Severe CKD Verified 08/08/24 14:26 (Iodinated Contrast- Oral and IV Dye) Family History Mother CAD (coronary artery disease) Diabetes Myocardial infarction Brother CAD (coronary artery disease) Hx of CABG Brother CAD (coronary artery disease) Surgical History History of esophagogastroduodenoscopy (EGD) Hx of right cataract extraction Hx of left cataract extraction Hx of colonoscopy Hx of foot surgery History of left-sided carotid endarterectomy (2000) 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) Social History Smoking Status: Former smoker alcohol intake: current details: Rare substance use type: does not use caffeine: Yes Type: coffee Number of servings: 3 ROS ROS Narrative As in HPI Physical Exam Narrative Alert and oriented x 3, no apparent distress S1, S2, RRR Diminished breath sounds with scattered rhonchi, on O2 nasal cannula Abdomen soft, rounded, positive bowel sounds ++ Bilateral lower extremity pitting edema extending up to bilateral thighs Lab / Micro Data 08/10/24 05:01 08/10/24 05:01 Labs: Laboratory Results - last 24 hr 08/10/24 05:01: WBC 12.6 H, RBC 3.22 L, Hgb 9.7 L, Hct 30.0 L, MCV 93.2, MCH 30.1, MCHC 32.3, RDW Std Deviation 52.6 H, RDW Coeff of [place] 15.3 H, Plt Count 275, MPV 10.3, Immature Gran % (Auto) 0.600, Neut % (Auto) 88.2 H, Lymph % (Auto) 2.1 L, [place] % (Auto) 9.0, Eos % (Auto) 0.0, Baso % (Auto) 0.1, Absolute Neuts (auto) 11.1 H, Absolute Lymphs (auto) 0.27 L, Nucleated RBC % 0, Sodium 131 L, Potassium 4.6, Chloride 95 L, Carbon Dioxide 27.0, Anion Gap 9, BUN 76 H, Creatinine 3.05 H, Estim Creat Clear Calc 14.56, Est GFR (MDRD) Af Amer 25 L, Est GFR (MDRD) Non-Af 21 L, BUN/Creatinine Ratio 24.9 H, Glucose 132 H, Calcium 8.4 L
[2024-08-10] MEDS: Ferrous Sulfate 325 MG Tablet PO (12:35)
[2024-08-10] MEDS: Albuterol 2.5 MG/3 ML VIAL.NEB. INHALATION (13:46)
[2024-08-10] MEDS: Atorvastatin Calcium 20 MG Tablet PO (21:23)
[2024-08-11] VITALS (10 sets, daily range): BP systolic 114–124; BP diastolic 43–52; PULSE 70; RESP 18; TEMP 36.3–36.4; O2SAT 88–100; BMI 25.4
[2024-08-11] MEDS: 0.9% Saline Lock 10 ML Syringe IV ×3 (01:23→21:05)
[2024-08-11 06:53] LABS: Absolute Lymphocyte Count 0.35 X10^3/uL (0.83-4.51); Absolute Neutrophil Count 10.4 X10^3/uL (2.0-7.7); Basophil# 0.01 X10^3/uL; Basophil% 0.1 % (0-1); Eosinophil# 0.02 X10^3/uL; Eosinophils% 0.2 % (0-5); Hematocrit 31.1 % (40-54); Hemoglobin 9.9 g/dL (13.0-16.5); Lymphocyte # 0.35 X10^3/ul (0.83-4.51); Mean Corp Hgb Conc 31.8 g/dL (32-36); Mean Corpuscular Hgb 29.9 pg (27.0-32.0); Mean Platelet Vol. 10.4 fl (6.2-12.0); Monocyte# 0.83 X10^3/uL; Monocyte% 7.1 % (0-10); NRBC Flagged by Analyzer 0 % (0-5); Neutrophil # 10.37 X10^3/uL (2.7-7.7); Neutrophil % 88.8 % (47-70); POSITIVE DIFFERENTIAL YES; Platelet Count 246 K/mm3 (150-450); RBC Distribution Width CV 15.5 % (11.6-14.6); RBC Distribution Width SD 53.3 fl (35.1-43.9); Red Blood Count 3.31 M/mm3 (4.6-6.2); White Blood Count 11.7 K/mm3 (4.4-11.0)
[2024-08-11 07:37] LABS: Anion Gap 8 (5-15); BUN 83 mg/dL (7-18); BUN/Creat Ratio 25.6 RATIO (10-20); Calcium,Total 8.5 mg/dL (8.5-10.1); Chloride 97 mmol/L (98-107); Creatinine, Serum 3.24 mg/dL (0.70-1.30); EST Glomerular Filtration Rate 19 mL/min (>60); Est Glom Filt Rate - Afr Amer 23 mL/min (>60); Estimated Creatinine Clearance 13.71 ml/min; Glucose 117 mg/dL (74-106); Magnesium 2.5 mg/dL (1.6-2.6); Potassium 4.4 mmol/L (3.5-5.1); Sodium Level 135 mmol/L (136-145)
--- NOTE | 2024-08-11 07:47 | PCM.PN.HOSP ---
Reason for Visit Reason for Visit: Diagnoses Acute on chronic combined systolic (congestive) and diastolic (congestive) heart failure (08/08/24) Hypoxemia (08/08/24) Subjective Subjective Patient seen still remains on supplemental oxygen 6 L at rest above his baseline. Had a discussion with patient's regarding patient clinical condition and multiple admissions did suggest hospice consultation for symptom management moving forward. Objective Data Objective Data Vital Signs: Vital Signs Temp Pulse Resp BP Pulse Ox O2 Del Method O2 Flow Rate 97.6 F L 70 18 114/48 L 92 High Flow 9 08/11/24 03:00 08/11/24 03:00 08/11/24 03:00 08/11/24 03:00 08/11/24 03:00 08/11/24 03:00 08/11/24 03:00 FiO2 40 08/10/24 07:09 Oxygen Flow Rate (L/min) 9 Oxygen Delivery Method High Flow Weight: 69.4 kg Body Mass Index (BMI) 25.4 Intake & Output: Intake and Output for Last 24 Hours 08/09/24 08/10/24 08/11/24 23:59 23:59 23:59 Intake Total 589 / 589 224 / 224 Output Total 1025 / 1025 500 / 500 Balance -436 / -436 -276 / -276 Lab / Micro Data 08/11/24 05:45 08/11/24 05:45 Labs: Laboratory Results - last 24 hr 08/11/24 05:45: WBC 11.7 H, RBC 3.31 L, Hgb 9.9 L, Hct 31.1 L, MCV 94.0, MCH 29.9, MCHC 31.8 L, RDW Std Deviation 53.3 H, RDW Coeff of [place] 15.5 H, Plt Count 246, MPV 10.4, Immature Gran % (Auto) 0.800, Neut % (Auto) 88.8 H, Lymph % (Auto) 3.0 L, [place] % (Auto) 7.1, Eos % (Auto) 0.2, Baso % (Auto) 0.1, Absolute Neuts (auto) 10.4 H, Absolute Lymphs (auto) 0.35 L, Nucleated RBC % 0, Sodium 135 L, Potassium 4.4, Chloride 97 L, Carbon Dioxide 29.0, Anion Gap 8, BUN 83 H, Creatinine 3.24 H, Estim Creat Clear Calc 13.71, Est GFR (MDRD) Af Amer 23 L, Est GFR (MDRD) Non-Af 19 L, BUN/Creatinine Ratio 25.6 H, Glucose 117 H, Calcium 8.5, Magnesium 2.5 Physical Exam Narrative GENERAL: cooperative HEENT: Atraumatic; normocephalic EYES; Anicteric, Normal Conjunctiva NECK; supple, normal thyroid, RESPIRATORY: Diminished to auscultation CARDIOVASCULAR: Regular S1 S2, GI: soft, normoactive bowel sounds, : No Renal angle tenderness; EXTREMITIES: No edema, no clubbing, MUSCULOSKELETAL: no muscle wasting NEURO: Awake; no lateralizing signs. SKIN: No Rash PSYCH; Flat affect Assessment & Plan Assessment/Plan (1) CHF (congestive heart failure): QUALIFIERS: Heart failure chronicity: acute on chronic Heart failure type: combined systolic and diastolic Qualified Code(s): I50.43 - Acute on chronic combined systolic (congestive) and diastolic (congestive) heart failure (2) Hypoxia: PLAN: Plan Patient is an 89-year-old gentleman admitted with progressive shortness of breath and assessment of acute congestive heart failure made admitted to a monitored bed for subsequent management 1. Acute on chronic hypoxic respiratory failure ? Secondary to CHF with acute exacerbation admitted to a monitored bed with treatment of the underlying condition as well as supplemental oxygen titrated to keep saturation greater than 90 ? 08/11/2024;Patient seen still remains on supplemental oxygen 6 L at rest above his baseline. Had a discussion with patient's regarding patient clinical condition and multiple admissions did suggest hospice consultation for symptom management moving forward. 2. Acute congestive heart failure with preserved ejection fraction -[facility] 07/17/2024 with EF of 50% and no regional wall motion abnormalities. Patient management strict input and output, daily weight, fluid restriction, low-sodium diet as well as diuretic therapy with subsequent monitoring of patient electrolyte levels ? 08/07/2024 plan is to transition patient to oral diuretics 3. Acute kidney injury ? Superimposed on chronic kidney disease stage IV. Patient has continued to experience worsening of kidney function. Consult placed to nephrology 4. Chronic kidney disease stage IV ? With worsening of patient kidney function consult was placed to nephrology ? 08/07/2024 Case was discussed with Dr. Hopper with nephrology. Plan is to transition patient to oral diuretics 5. Paroxysmal A-fib ? Rate controlled on systemic anticoagulation with apixaban continue 6. Right lateral heel unstageable pressure wound, - present on admission. Patient also has erythema probably due to venous edema, right lower leg. Localized erythema probably in right forearm due to superficial thrombophlebitis. It is not tender or is spreading therefore unlikely cellulitis. Wound nurse consulted - #7. Previous history of CVA ? Currently without any residual effect 8. Carotid artery disease ? With previous left CEA x 2 9. GERD ? With Bales's esophagus and chronic dysphagia with dysphagia stent patient is on PPI and is followed by Dr. Bernardo on outpatient basis 10. 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 Stable no active issues 11. Anemia ? Secondary to chronic disorder monitoring H&H and transfuse if patient becomes symptomatic or hemoglobin falls below 7 12. Hyponatremia ? Secondary to fluid overload status do expect improvement with diuresis 13. DVT prophylaxis ? Patient is on apixaban Time spent in the patient's overall evaluation,decision-making process, review of diagnostic data, adjustment of management, discussion with other providers, nursing nursing and ancillary staff involved in patient's care documentation, 50 Minutes Charges/Coding Visit Charges Inpatient E&M: 31680 [facility] Hosp L3
[2024-08-11 08:17] LABS: Phosphorus 3.8 mg/dL (2.5-4.9)
[2024-08-11] MEDS: Bumetanide 1 MG/4 ML Vial 2 MG IV (09:24)
[2024-08-11] MEDS: Aspirin E.C. 81 MG Tablet PO (09:24)
[2024-08-11] MEDS: APIXABAN 2.5 MG TABLET (WCH) PO ×2 (09:25→21:05)
[2024-08-11] MEDS: Potassium Chloride Oral Tablet 10 MEQ PO (09:25)
[2024-08-11] MEDS: Pantoprazole Sodium 20 MG Tablet PO ×2 (09:26→21:04)
[2024-08-11] MEDS: Metoprolol Tartrate 25 MG Tablet PO ×2 (09:26→21:04)
[2024-08-11] MEDS: amLODIPine 10 MG Tablet PO (09:26)
[2024-08-11] MEDS: Ensure Plus High Protein 120 ML LIQUID PO ×3 (09:33→17:40)
[2024-08-11] MEDS: Ampicillin/Sulbactam 3 GM in 0.9% Normal Saline (100mL MB+) 100 ML IV ×2 (09:50→21:05)
--- NOTE | 2024-08-11 10:06 | CASEMGMT ---
DESTINEE CHAN received order for palliative consult. Palliative screening tool completed and referral sent to [facility].
--- NOTE | 2024-08-11 10:27 | CASEMGMT ---
HH resumption referral sent to [facility]. Requested wknd phone/fax for discharge notification. Nora Colindres DC Planning Asst.
--- NOTE | 2024-08-11 11:01 | CASEMGMT ---
Physician put in a referral for Hospice for patient. SW met with patient and his Devika. SW introduced self and role at [facility]. They confirmed they were open to a Hospice referral. SW explained how the process works. SW called Hospice regarding referral. Await return call regarding meeting time. Archana Beard COMPUTING SERVICES DIRECTOR WEI
[2024-08-11] MEDS: Ferrous Sulfate 325 MG Tablet PO (12:21)
--- NOTE | 2024-08-11 14:51 | CASEMGMT ---
JAMIN called Hospice and they will be meeting with patient and his today between 4 and 430. JAMIN notified physician and RN. Archana Beard [employer] WEI
--- NOTE | 2024-08-11 16:14 | PN.RENAL_ITS ---
Subjective Subjective edema still present Objective Data Objective Data Vital Signs: Vital Signs Temp Pulse Resp BP Pulse Ox O2 Del Method O2 Flow Rate 97.6 F L 70 18 118/47 L 94 Nasal Cannula 5 08/11/24 15:25 08/11/24 15:25 08/11/24 15:25 08/11/24 15:25 08/11/24 15:25 08/11/24 15:25 08/11/24 15:25 FiO2 40 08/10/24 07:09 Oxygen Flow Rate (L/min) 5 Oxygen Delivery Method Nasal Cannula Weight: 69.4 kg Body Mass Index (BMI) 25.4 Intake & Output: Intake and Output for Last 24 Hours 08/09/24 08/10/24 08/11/24 23:59 23:59 23:59 Intake Total 589 / 589 224 / 224 112 / 112 Output Total 1025 / 1025 500 / 500 Balance -436 / -436 -276 / -276 112 / 112 Lab / Micro Data 08/11/24 05:45 08/11/24 05:45 Labs: Laboratory Results - last 24 hr 08/11/24 05:45: WBC 11.7 H, RBC 3.31 L, Hgb 9.9 L, Hct 31.1 L, MCV 94.0, MCH 29.9, MCHC 31.8 L, RDW Std Deviation 53.3 H, RDW Coeff of [place] 15.5 H, Plt Count 246, MPV 10.4, Immature Gran % (Auto) 0.800, Neut % (Auto) 88.8 H, Lymph % (Auto) 3.0 L, [place] % (Auto) 7.1, Eos % (Auto) 0.2, Baso % (Auto) 0.1, Absolute Neuts (auto) 10.4 H, Absolute Lymphs (auto) 0.35 L, Nucleated RBC % 0, Sodium 135 L, Potassium 4.4, Chloride 97 L, Carbon Dioxide 29.0, Anion Gap 8, BUN 83 H, Creatinine 3.24 H, Estim Creat Clear Calc 13.71, Est GFR (MDRD) Af Amer 23 L, E st GFR (MDRD) Non-Af 19 L, BUN/Creatinine Ratio 25.6 H, Glucose 117 H, Calcium 8.5, Phosphorus 3.8, Magnesium 2.5 Physical Exam Narrative Alert and oriented x 3, no apparent distress S1, S2, RRR Diminished breath sounds with scattered rhonchi, on O2 nasal cannula Abdomen soft, rounded, positive bowel sounds ++ Bilateral lower extremity pitting edema extending up to bilateral thighs Assessment & Plan Assessment/Plan (1) CHADWICK (acute kidney injury): (2) Chronic kidney disease, stage IV (severe): (3) Hypoxia: (4) CHF (congestive heart failure): QUALIFIERS: Heart failure type: combined systolic and diastolic H eart failure chronicity: acute on chronic Qualified Code(s): I50.43 - Acute on chronic combined systolic (congestive) and diastolic (congestive) heart failure PLAN: Plan This is a pleasant unfortunate 89-year-old male with past medical history significant for chronic kidney disease stage IV, coronary artery disease status post CABG in 2007, heart failure reduced EF (echo 06/2024 stage II diastolic dysfunction, EF 50%; before that EF was 35%), hypertension, proximal atrial fibrillation, PAD status post carotid enterectomy, Bales's esophagus/esophageal stricture with chronic dysphagia followed by Dr. Carlin, hyperlipidemia, chronic hypoxia on 4 L O2 at rest, 6 L with exertion at all times, permanent pacemaker placement last admission who was admitted to the hospital for hypoxia and acute decompensated heart failure. Nephrology consulted in view of rising serum creatinine. Patient has history of chronic kidney disease stage IV. Baseline creatinine had been around 2 mg/dL up until April 2024 however there seems to be some progression of CKD since then. Since April patient has had multiple episodes of CHADWICK and also had CHADWICK in setting of cardiac arrest, complete heart block with eventual PPM placement. Current baseline creatinine is possibly now ranging around 2.5 to 3 mg/dL however it is difficult to determine true EGFR given fluctuating serum creatinine trends from cardiorenal syndrome physiology. Patient may have had some progression of CKD. no acute indication for HD overall not great situation with HD will try to use PO diuretics for now will arrange follow up after dc dw hospitalist
[2024-08-11] MEDS: Atorvastatin Calcium 20 MG Tablet PO (21:04)
[2024-08-12] VITALS (9 sets, daily range): BP systolic 109–113; BP diastolic 44–52; PULSE 70–71; RESP 12–20; TEMP 36.2–36.4; O2SAT 87–100
--- NOTE | 2024-08-12 00:06 | CPS ---
Patient refused PAP therapy for night time use.
--- NOTE | 2024-08-12 08:14 | PCM.PN.HOSP ---
Reason for Visit Reason for Visit: Diagnoses Acute on chronic combined systolic (congestive) and diastolic (congestive) heart failure (08/08/24) Acute kidney failure, unspecified (08/08/24) Chronic kidney disease, stage 4 (severe) (08/08/24) Hypoxemia (08/08/24) Subjective Subjective Patient seen, oxygen requirement did increase during the night. Patient and family declined hospice plan is to go with palliative care on discharge. Repeated chest x-ray Objective Data Objective Data Vital Signs: Vital Signs Temp Pulse Resp BP Pulse Ox O2 Del Method O2 Flow Rate 97.6 F L 70 20 H 113/52 L 96 Nasal Cannula 9 08/12/24 03:15 08/12/24 03:15 08/12/24 03:15 08/12/24 03:15 08/12/24 03:15 08/12/24 03:15 08/12/24 03:15 FiO2 40 08/12/24 03:12 Oxygen Flow Rate (L/min) 9 Oxygen Delivery Method Nasal Cannula Weight: 69.4 kg Body Mass Index (BMI) 25.4 Intake & Output: Intake and Output for Last 24 Hours 08/10/24 08/11/24 08/12/24 23:59 23:59 23:59 Intake Total 224 / 224 224 / 404 360 / 360 Output Total 500 / 500 Balance -276 / -276 224 / 404 360 / 360 Lab / Micro Data 08/11/24 05:45 08/11/24 05:45 Labs: Laboratory Results - last 24 hr 08/11/24 05:45: Phosphorus 3.8 Physical Exam Narrative GENERAL: cooperative HEENT: Atraumatic; normocephalic EYES; Anicteric, Normal Conjunctiva NECK; supple, normal thyroid, RESPIRATORY: Diminished to auscultation CARDIOVASCULAR: Regular S1 S2, GI: soft, normoactive bowel sounds, : No Renal angle tenderness; EXTREMITIES: No edema, no clubbing, MUSCULOSKELETAL: no muscle wasting NEURO: Awake; no lateralizing signs. SKIN: No Rash PSYCH; Flat affect Assessment & Plan Assessment/Plan (1) CHF (congestive heart failure): QUALIFIERS: Heart failure chronicity: acute on chronic Heart failure type: combined systolic and diastolic Qualified Code(s): I50.43 - Acute on chronic combined systolic (congestive) and diastolic (congestive) heart failure (2) Hypoxia: PLAN: Plan Patient is an 89-year-old gentleman admitted with progressive shortness of breath and assessment of acute congestive heart failure made admitted to a monitored bed for subsequent management 1. Acute on chronic hypoxic respiratory failure ? Secondary to CHF with acute exacerbation admitted to a monitored bed with treatment of the underlying condition as well as supplemental oxygen titrated to keep saturation greater than 90 ? 08/11/2024;Patient seen still remains on supplemental oxygen 6 L at rest above his baseline. Had a discussion with patient's regarding patient clinical condition and multiple admissions did suggest hospice consultation for symptom management moving forward. ? 08/12/2024; patient seen, oxygen requirement did increase during the night. Patient and family declined hospice plan is to go with palliative care on discharge. Repeated chest x-ray 2. Acute congestive heart failure with preserved ejection fraction -[facility] 07/17/2024 with EF of 50% and no regional wall motion abnormalities. Patient management strict input and output, daily weight, fluid restriction, low-sodium diet as well as diuretic therapy with subsequent monitoring of patient electrolyte levels ? 08/07/2024 plan is to transition patient to oral diuretics 3. Acute kidney injury ? Superimposed on chronic kidney disease stage IV. Patient has continued to experience worsening of kidney function. Consult placed to nephrology 4. Chronic kidney disease stage IV ? With worsening of patient kidney function consult was placed to nephrology ? 08/07/2024 Case was discussed with Dr. Hopper with nephrology. Plan is to transition patient to oral diuretics 5. Paroxysmal A-fib ? Rate controlled on systemic anticoagulation with apixaban continue 6. Right lateral heel unstageable pressure wound, - present on admission. Patient also has erythema probably due to venous edema, right lower leg. Localized erythema probably in right forearm due to superficial thrombophlebitis. It is not tender or is spreading therefore unlikely cellulitis. Wound nurse consulted - #7. Previous history of CVA ? Currently without any residual effect 8. Carotid artery disease ? With previous left CEA x 2 9. GERD ? With Bales's esophagus and chronic dysphagia with dysphagia stent patient is on PPI and is followed by Dr. Bernardo on outpatient basis 10. 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 Stable no active issues 11. Anemia ? Secondary to chronic disorder monitoring H&H and transfuse if patient becomes symptomatic or hemoglobin falls below 7 12. Hyponatremia ? Secondary to fluid overload status do expect improvement with diuresis 13. DVT prophylaxis ? Patient is on apixaban Time spent in the patient's overall evaluation,decision-making process, review of diagnostic data, adjustment of management, discussion with other providers, nursing nursing and ancillary staff involved in patient's care documentation, 40 Minutes Charges/Coding Visit Charges Inpatient E&M: 43141 Subs Hosp L2
[2024-08-12] MEDS: Pantoprazole Sodium 20 MG Tablet PO (09:10)
[2024-08-12] MEDS: APIXABAN 2.5 MG TABLET (WCH) PO (09:10)
[2024-08-12] MEDS: Aspirin E.C. 81 MG Tablet PO (09:10)
[2024-08-12] MEDS: Amox/Clavulanate 500 MG Tablet PO (09:10)
[2024-08-12] MEDS: Bumetanide 2 MG Tablet PO (09:11)
[2024-08-12] MEDS: Metoprolol Tartrate 25 MG Tablet PO (09:11)
[2024-08-12] MEDS: Potassium Chloride Oral Tablet 10 MEQ PO (09:12)
--- NOTE | 2024-08-12 09:20 | RAD_ITS ---
HISTORY: dyspnea. TECHNIQUE: XR Chest 2 Views. COMPARISON: 08/08/2024. FINDINGS: LINES/TUBES: Cardiac pacemaker again seen. CARDIOMEDIASTINAL BORDERS: Stable mild enlargement of the cardiac silhouette with midline sternotomy. LUNGS: Mild decreased interstitial and bibasilar opacities with improved aeration of the lungs. PLEURA: Mild-moderate pleural effusions again seen. RAD/Chest PA and Lateral IMPRESSION: Mild-moderate bilateral pleural effusions with mildly decreased pulmonary edema and bibasilar opacities. Electronically Signed: Mary Castillo MD at 10:51 EST ,
[2024-08-12 10:09] LABS: Absolute Lymphocyte Count 0.17 X10^3/uL (0.83-4.51); Absolute Neutrophil Count 10.3 X10^3/uL (2.0-7.7); Basophil# 0.01 X10^3/uL; Basophil% 0.1 % (0-1); Eosinophil# 0.06 X10^3/uL; Eosinophils% 0.5 % (0-5); Hematocrit 32.1 % (40-54); Hemoglobin 10.2 g/dL (13.0-16.5); Lymphocyte # 0.17 X10^3/ul (0.83-4.51); Lymphocyte % 1.5 % (19-41); Mean Corp Hgb Conc 31.8 g/dL (32-36); Mean Corpuscular Volume 94.4 fL (80-94); Mean Platelet Vol. 9.7 fl (6.2-12.0); Monocyte# 0.64 X10^3/uL; Monocyte% 5.7 % (0-10); NRBC Flagged by Analyzer 0 % (0-5); Neutrophil # 10.26 X10^3/uL (2.7-7.7); Neutrophil % 91.5 % (47-70); POSITIVE DIFFERENTIAL YES; Platelet Count 178 K/mm3 (150-450); RBC Distribution Width CV 15.5 % (11.6-14.6); RBC Distribution Width SD 52.5 fl (35.1-43.9); White Blood Count 11.2 K/mm3 (4.4-11.0)
[2024-08-12 10:38] LABS: Anion Gap 8 (5-15); BUN 83 mg/dL (7-18); BUN/Creat Ratio 25.2 RATIO (10-20); Calcium,Total 8.9 mg/dL (8.5-10.1); Chloride 97 mmol/L (98-107); EST Glomerular Filtration Rate 19 mL/min (>60); Est Glom Filt Rate - Afr Amer 23 mL/min (>60); Estimated Creatinine Clearance 13.46 ml/min; Glucose 170 mg/dL (74-106); Magnesium 2.5 mg/dL (1.6-2.6); Phosphorus 3.7 mg/dL (2.5-4.9); Potassium 4.5 mmol/L (3.5-5.1); Sodium Level 135 mmol/L (136-145)
--- NOTE | 2024-08-12 10:53 | PCM.DC.SUM ---
Providers Date of Admission: 08/08/24 Date of Discharge: 08/12/24 Primary Care Physician: Dr. Gladis Castro, DO Consultations 08/08/24 18:28 Consult: Onc/Wound/quality consultant Routine Comment: Reason for Consult:: R heel wound 08/10/24 10:46 Consult: Nephrology Routine Consulting Provider: Tyler Hopper Reason for Consult: CKD EMERGENT Consult: No MD Notified: Yes Date Notified: 08/10/24 Time Notified: 10:47 Method of Notification: Verbal Reason For Visit: FLUID OVERLOAD Diagnosis Discharge Diagnosis (1) CHF (congestive heart failure): Status: Acute Code(s): I50.9 - Heart failure, unspecified Qualifiers: Heart failure type: combined systolic and diastolic Heart failure chronicity: acute on chronic Qualified Code(s): I50.43 - Acute on chronic combined systolic (congestive) and diastolic (congestive) heart failure (2) Hypoxia: Status: Acute Code(s): R09.02 - Hypoxemia Plan Patient is an 89-year-old gentleman admitted with progressive shortness of breath and assessment of acute congestive heart failure made admitted to a monitored bed for subsequent management 1. Acute on chronic hypoxic respiratory failure ? Secondary to CHF with acute exacerbation admitted to a monitored bed with treatment of the underlying condition as well as supplemental oxygen titrated to keep saturation greater than 90 ? 08/11/2024;Patient seen still remains on supplemental oxygen 6 L at rest above his baseline. Had a discussion with patient's regarding patient clinical condition and multiple admissions did suggest hospice consultation for symptom management moving forward. ? 08/12/2024; patient seen, oxygen requirement did increase during the night. Patient and family declined hospice plan is to go with palliative care on discharge. Repeated chest x-ray ? Home oxygen assessment was repeated. Patient was found to be at his baseline 4 L at rest and with exertion continuous. No new prescription was written.. Given patient recurrent and multiple admissions referral was made to the hospice team after discussion with patient and the declined hospice patient was instead discharged home with palliative care 2. Acute congestive heart failure with preserved ejection fraction -cho 07/17/2024 with EF of 50% and no regional wall motion abnormalities. Patient management strict input and output, daily weight, fluid restriction, low-sodium diet as well as diuretic therapy with subsequent monitoring of patient electrolyte levels ? 08/07/2024 plan is to transition patient to oral diuretics 3. Acute kidney injury ? Superimposed on chronic kidney disease stage IV. Patient has continued to experience worsening of kidney function. Consult placed to nephrology 4. Chronic kidney disease stage IV ? With worsening of patient kidney function consult was placed to nephrology ? 08/07/2024 Case was discussed with Dr. Hopper with nephrology. Plan is to transition patient to oral diuretics 5. Paroxysmal A-fib ? Rate controlled on systemic anticoagulation with apixaban continue 6. Right lateral heel unstageable pressure wound, - present on admission. Patient also has erythema probably due to venous edema, right lower leg. Localized erythema probably in right forearm due to superficial thrombophlebitis. It is not tender or is spreading therefore unlikely cellulitis. Wound nurse consulted - #7. Previous history of CVA ? Currently without any residual effect 8. Carotid artery disease ? With previous left CEA x 2 9. GERD ? With Bales's esophagus and chronic dysphagia with dysphagia stent patient is on PPI and is followed by Dr. Bernardo on outpatient basis 10. 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 Stable no active issues 11. Anemia ? Secondary to chronic disorder monitoring H&H and transfuse if patient becomes symptomatic or hemoglobin falls below 7 12. Hyponatremia ? Secondary to fluid overload status do expect improvement with diuresis 13. DVT prophylaxis ? Patient is on apixaban Time spent in the patient's overall evaluation,decision-making process, review of diagnostic data, adjustment of management, discussion with other providers, nursing nursing and ancillary staff involved in patient's care documentation, 40 Minutes Medications at Discharge Home Medications aspirin 81 mg tablet,delayed release (Adult Low Dose Aspirin) 81 mg PO QDAY SUPPLEMENT 11/04/17 cholecalciferol (vitamin D3) 25 mcg (1,000 unit) capsule 1,000 unit PO QDAY SUPPLEMENT 03/11/23 atorvastatin 20 mg tablet 20 mg PO QPM H;D 03/27/24 metoprolol tartrate 25 mg tablet 25 mg PO BID #180 tabs 06/12/24 apixaban 5 mg tablet (Eliquis) 2.5 mg PO BID blood thinner 06/28/24 omeprazole 20 mg capsule,delayed release 20 mg PO BID GERD #180 caps 07/04/24 ferrous sulfate 325 mg (65 mg iron) tablet (Feosol) 325 mg PO DAILY anemia 07/16/24 amlodipine 10 mg tablet 10 mg PO DAILY #90 tabs 08/01/24 potassium chloride 10 mEq tablet,extended release(part/cryst) 10 meq PO QDAY #90 tabs 08/01/24 amoxicillin 500 mg-potassium clavulanate 125 mg tablet 1 tab PO BID #14 tabs 08/12/24 torsemide 20 mg tablet 40 mg (2 x 20 mg) PO DAILY #120 tabs 08/12/24 Physical Exam Narrative GENERAL: cooperative HEENT: Atraumatic; normocephalic EYES; Anicteric, Normal Conjunctiva NECK; supple, normal thyroid, RESPIRATORY: Diminished to auscultation CARDIOVASCULAR: Regular S1 S2, GI: soft, normoactive bowel sounds, : No Renal angle tenderness; EXTREMITIES: No edema, no clubbing, MUSCULOSKELETAL: no muscle wasting NEURO: Awake; no lateralizing signs. SKIN: No Rash PSYCH; Flat affect Weight / BMI Weight Weight: 69.4 kg Body Mass Index (BMI) 25.4 ABG / Lab / Microbiology Data 08/12/24 09:55 08/12/24 09:55 Laboratory: Laboratory Results - last 24 hr 08/12/24 09:55: WBC 11.2 H, RBC 3.40 L, Hgb 10.2 L, Hct 32.1 L, MCV 94.4 H, MCH 30.0, MCHC 31.8 L, RDW Std Deviation 52.5 H, RDW Coeff of [place] 15.5 H, Plt Count 178, MPV 9.7, Immature Gran % (Auto) 0.700, Neut % (Auto) 91.5 H, Lymph % (Auto) 1.5 L, [place] % (Auto) 5.7, Eos % (Auto) 0.5, Baso % (Auto) 0.1, Absolute Neuts (auto) 10.3 H, Absolute Lymphs (auto) 0.17 L, Nucleated RBC % 0, Sodium 135 L, Potassium 4.5, Chloride 97 L, Carbon Dioxide 30.0, Anion Gap 8, BUN 83 H, Creatinine 3.30 H, Estim Creat Clear Calc 13.46, Est GFR (MDRD) Af Amer 23 L, Est GFR (MDRD) Non-Af 19 L, BUN/Creatinine Ratio 25.2 H, Glucose 170 H, Calcium 8.9, Phosphorus 3.7, Magnesium 2.5 Radiography Diagnostic Testing: Radiology Impression Chest X-Ray 08/12/24 09:20 IMPRESSION: Mild-moderate bilateral pleural effusions with mildly decreased pulmonary edema and bibasilar opacities. Electronically Signed: Mary Castillo MD at 10:51 EST Reading Location ID and State: [facility] / [place] Tel , Service support , D/C Instructions Discharge Diet: 8 Cup Fluid Restriction Discharge Activity: Return to Normal Activity Call your doctor if you observe: Fever of 101 or Higher, Shortness of breath, Fainting spells and Chest pain DC O2, CPAP, BIPAP Needs RN Home O2 Qualification: Home O2 Qualification: Is the patient on home oxygen Yes 08/12/24 10:31 Home O2 Qualification: AT REST 1-Pulse Ox at rest 95 08/12/24 10:31 1- Oxygen flow rate at rest 4 08/12/24 10:31 Home O2 Qualification: WITH AMBULATION 1- Pulse Ox with ambulation 91 08/12/24 10:31 1- Oxygen Flow Rate with 4 08/12/24 10:31 ambulation PSN CPAP & BiPAP: BiPAP & CPAP Settings per PSN Mode BiPAP 08/12/24 03:12 Bipap Delivery Device Face Mask 08/12/24 03:12 BiPAP Inspiratory Pressure 12 08/12/24 03:12 BiPAP Expiratory Pressure 8 08/12/24 03:12 BiPAP Rate 12 08/12/24 03:12 Fraction of Inspired Oxygen ( 40 08/12/24 03:12 FIO2) Home O2 Discharge instructions: Yes Type of respiratory needs?: Oxygen Oxygen frequency: Continuous Continuous oxygen liters per minute: 4 DC home with Oxygen: Yes Home O2 MD Review: I have reviewed the oxygen testing, and the patient qualifies for home oxygen equipment and portability. The patient is mobile in the home and the community. Meaningful Use Info Meaningful Use Meaningful Use Diagnoses (Choose all that apply): CHF CHF LORENZO/ARB ordered at discharge?: No Reason LORENZO/ARB not ordered?: Not indicated and Worsening renal disease Documented LVEF (%): 50 Ischemic Stroke Statin Dosing Therapy Reference: STATIN DOSE THERAPY REFERENCE: * Patients > 75 years receive moderate or high dose statin therapy. * Patients 75 years or YOUNGER should receive HIGH intensity statin dose unless contraindicated. You will be required to document reason for non-treatment if statin daily dose does not meet guidelines. HIGH DOSE STATIN THERAPY DAILY Atorvastatin > than or = to 40 mg Rosuvastatin > than or = to 20 mg Amlodipine + Atorvastatin > than or = to 2.5/40 mg Ezetimibe + Simvastatin 10/80 mg Simvastatin 80mg Discharge Plan Admission Admit Date/Time: 08/08/24 17:16 Attending Provider: Kalpesh Farris Primary Care Provider: Gladis Castro Consulting Providers: Sonia Rangel; Len Harris; Tyler Hopper Discharge Orders/Prescriptions Prescriptions: New amoxicillin-pot clavulanate 500-125 mg Tablet 1 tab PO BID Qty: 14 0RF torsemide 20 mg tablet 40 mg PO DAILY Qty: 120 0RF Continued cholecalciferol (vitamin D3) 25 mcg (1,000 unit) capsule 1,000 unit PO QDAY aspirin [Adult Low Dose Aspirin] 81 mg tablet,delayed release (DR/EC) 81 mg PO QDAY atorvastatin 20 mg tablet 20 mg PO QPM metoprolol tartrate 25 mg tablet 25 mg PO BID Qty: 180 3RF Eliquis 5 mg tablet 2.5 mg PO BID ferrous sulfate [Feosol] 325 mg (65 mg iron) tablet 325 mg PO DAILY omeprazole 20 mg capsule,delayed release(DR/EC) 20 mg PO BID Qty: 180 1RF amlodipine 10 mg tablet 10 mg PO DAILY Qty: 90 3RF potassium chloride 10 mEq tablet,ER particles/crystals 10 meq PO QDAY Qty: 90 3RF Discontinued torsemide 10 mg tablet 10 mg PO .COMPLEX Qty: 60 11RF Rx Instructions: 10 mg orally twice a day, 4 hours apart (stop Furosemide); Referrals / Follow Up: Gladis Castro DO [Primary Care Provider] - Within 1 Week Disposition Disposition (needs filled in before D/C Order can be placed): Home, Self Care Charges/Coding Visit Charges Inpatient E&M: 41918 Disch Hosp >30min
== END 2024-08-12 14:31 | disposition home or self-care (01) | DRG 291 ==
LOC: ED 16:25 → PCU 17:31
PROVIDERS: Internal Medicine; Admitting Provider Internal Medicine; Emergency Provider Emergency Medicine; PCP Internal Medicine; Visit Provider Internal Medicine
DX: I13.0 Hypertensive heart and chronic kidney disease with heart failure and stage 1 through stage 4 chronic kidney disease, or unspecified chronic kidney disease (principal); J96.21 Acute and chronic respiratory failure with hypoxia; I50.43 Acute on chronic combined systolic (congestive) and diastolic (congestive) heart failure; E87.1 Hypo-osmolality and hyponatremia; N18.4 Chronic kidney disease, stage 4 (severe); N17.9 Acute kidney failure, unspecified; L89.610 Pressure ulcer of right heel, unstageable; I73.9 Peripheral vascular disease, unspecified; J44.9 Chronic obstructive pulmonary disease, unspecified; I48.0 Paroxysmal atrial fibrillation; K21.9 Gastro-esophageal reflux disease without esophagitis; E78.00 Pure hypercholesterolemia, unspecified; I25.10 Atherosclerotic heart disease of native coronary artery without angina pectoris; K22.70 Barrett's esophagus without dysplasia; I80.8 Phlebitis and thrombophlebitis of other sites; Z79.01 Long term (current) use of anticoagulants; Z79.82 Long term (current) use of aspirin; Z99.81 Dependence on supplemental oxygen; Z86.73 Personal history of transient ischemic attack (TIA), and cerebral infarction without residual deficits; Z87.891 Personal history of nicotine dependence; Z95.0 Presence of cardiac pacemaker; Z95.1 Presence of aortocoronary bypass graft
CPT/HCPCS: 36415; 71045; 71046; 80048; 83735; 83880; 84100; 84484; 85025; 93005; 94002; 94003; 94640; 94668; 94762; 97116; 97162; 97166; 97530; 97535; 97802; 99285; A4216; J0295